=== PATIENT | female | born 1980 | race Caucasian/White ===

== ENCOUNTER 2017-09-01 05:42 | Emergency (ER) | payer MEDICAID, SELFPAY ==
[2017-09-01 05:43] VITALS: BP 128/90; PULSE 109; RESP 18; TEMP 36.8; O2SAT 100; BMI 28.9
--- NOTE | 2017-09-01 05:55 | ED.VISSUMM ---
- ER Visit Summary Date of Service: 09/01/17 Chief Complaint: Back pain History of Present Illness: The patient is a 36 F who presents with back pain. She does have a history of prior similar symptoms. It has been present about 2-3 weeks. She states that in the past month she is also had pain in the left hip and left leg. She has been taking naproxen with out relief at home. Her pain is worse with movement ambulation or bending and relieved by remaining still. She denies any numbness tingling weakness fever abdominal pain urinary retention fecal incontinence history of back surgery history of IV drug abuse. Physical Examination: Afebrile vitals unremarkable Heart regular Lungs clear No reproducible back tenderness normal inspection Negative straight leg raise bilaterally Normal strength and sensation of the lower extremities 5 out of 5 dorsiflexion, plantarflexion, extensor hallucis longus Test Results: Not indicated Emergency Department Course and Treatment: Patient presents with lumbar radiculopathy. She had he has anti-inflammatories at home. She was given a prescription for prednisone. She was advised to follow-up with her primary care physician and advised that she may benefit from physical therapy as well. She was discharged. Treatment Plan: [] Disposition: Discharge Impression lumbar radiculopathy This note was generated with [employer] dictation software. It may contain incorrect words, spelling, and punctuation that were not noted in review of the chart prior to signing ED Disposition - Plan for ED Patient: Chief Complaint: Back Referrals: Rj Alejandro MD [Primary Care Provider] -
--- NOTE | 2017-09-01 05:58 | ED.DCSUM_ITS ---
- ER Visit Summary Date of Service: 09/01/17 Chief Complaint: Back pain History of Present Illness: The patient is a 36 F who presents with back pain. She does have a history of prior similar symptoms. It has been present about 2- 3 weeks. She states that in the past month she is also had pain in the left hip and left leg. She has been taking naproxen with out relief at home. Her pain is worse with movement ambulation or bending and relieved by remaining still. She denies any numbness tingling weakness fever abdominal pain urinary retention fecal incontinence history of back surgery history of IV drug abuse. Physical Examination: Afebrile vitals unremarkable Heart regular Lungs clear No reproducible back tenderness normal inspection Negative straight leg raise bilaterally Normal strength and sensation of the lower extremities 5 out of 5 dorsiflexion, plantarflexion, extensor hallucis longus Test Results: Not indicated Emergency Department Course and Treatment: Patient presents with lumbar radiculopathy. She had he has anti-inflammatories at home. She was given a prescription for prednisone. She was advised to follow-up with her primary care physician and advised that she may benefit from physical therapy as well. She was discharged. Treatment Plan: [] Disposition: Discharge Impression lumbar radiculopathy This note was generated with [employer] dictation software. It may contain incorrect words, spelling, and punctuation that were not noted in review of the chart prior to signing ED Disposition - Plan for ED Patient: Chief Complaint: Back Referrals: Rj Alejandro MD [Primary Care Provider] -
--- NOTE | 2017-09-01 06:01 | ED.DEP ---
ED Disposition - Plan for ED Patient: Chief Complaint: Back Instructions: ED Sciatica Prescriptions: Prednisone [Deltasone] 60 mg PO DAILY #15 tab Referrals: Rj Alejandro MD [Primary Care Provider] -
== END 2017-09-01 06:16 | disposition home or self-care (01) ==
LOC: ED 05:58
PROVIDERS: Emergency Provider Emergency Medicine; Family Provider Family Medicine; PCP Family Medicine
DX: M54.16 Radiculopathy, lumbar region (principal); J45.909 Unspecified asthma, uncomplicated; Z72.0 Tobacco use
CPT/HCPCS: 99282

== ENCOUNTER 2018-06-28 14:57 | Emergency (ER) | payer MEDICAID, SELFPAY ==
[2018-06-28 14:58] VITALS: BP 118/100; PULSE 105; RESP 16; TEMP 36.4; O2SAT 98; BMI 28.4
--- NOTE | 2018-06-28 15:07 | CT_ITS ---
STUDY: CT ABDOMEN AND PELVIS WITHOUT CONTRAST REASON FOR EXAM: Female, 37 years old. Left flank pain. RADIATION DOSAGE (If Supplied By Facility): CTDIvol = ( ) mGy, DLP = ( ) mGycm TECHNIQUE: Transaxial images were obtained from the dome of the diaphragm to the symphysis pubis without oral contrast, and without intravenous contrast. Sagittal and coronal images were reconstructed. Individualized dose optimization techniques were used for this CT. COMPARISON: December 05, 2013. FINDINGS: The visualized lung bases are unremarkable. The visualized portions of the heart are within normal limits. Normal liver. Normal gallbladder and extrahepatic biliary system. Normal spleen. Normal pancreas. Normal bilateral adrenal glands. The right kidney is of normal size and cortical thickness. There is a 2 mm nonobstructing calculus in the lower pole calyx. There is no hydronephrosis. Normal right ureter. The left kidney is of normal size and cortical thickness. There is no mass or renal calculi. There is evidence of hydronephrosis and ureterectasis to the UVJ where there is nonobstructing 3 mm calculus (image 139, series 2). Normal visualized stomach. Normal small intestine. Normal colon. The appendix is visualized and appears normal. Normal abdominal aorta. Normal inferior vena cava. Normal retroperitoneum. Normal urinary bladder. The uterus is anteverted and grossly normal. There is evidence of Essure devices at both cornua. Question 2.9 x 1.5 x 1.9 left ovarian cyst. The right adnexa is unremarkable. There is no pelvic lymphadenopathy. No free air or free fluid is seen within the peritoneal cavity. There is an umbilical hernia of omental fat. The abdominal wall is otherwise unremarkable. There are minimal degenerative changes of the lower lumbar spine. CT/Abdomen/Pelvis without Cont IMPRESSION: 1. Left UVJ calculus with mild obstructive uropathy. This was described on the previous study and appears essentially unchanged.. 2. Stable nonobstructing right lower pole renal calculus. 3. Left ovarian cyst. 4. No other major interval change from the prior study Electronically Signed: Zack Locke DO at 16:37 EST Tel [phone], Service support ,
--- NOTE | 2018-06-28 15:10 | ED.VISSUMM ---
- ER Visit Summary Date of Service: 06/28/18 Chief Complaint: Left flank/abdominal pain History of Present Illness: The patient is a 37 F who has had left flank and left lower quadrant abdominal pain for the past 3 days. She describes it as sharp. Nothing makes his pain better or worse. She was seen [facility] ago and had a negative urine for infection but did have blood. She states that the provider did place her on an antibiotic. She denies hematuria or dysuria. She has had kidney stones once before. She tried Tylenol at home without any relief. Denies any diarrhea. Physical Examination: Vital signs reviewed. HEENT exam unremarkable. Heart is regular rate and rhythm without murmurs. Lungs are clear to auscultation. Abdomen is soft lower quadrant and left flank. There is no guarding or rebound tenderness. Extremities reveal no edema. Skin exam normal. Neurologic exam normal. Test Results: Laboratory studies unremarkable. Urinalysis reveals 2+ leukocytes and positive nitrites. 0-5 red blood cells. 10-[address] the abdomen pelvis reveals a left UVJ calculus which is unchanged from a CAT scan previously performed. Emergency Department Course and Treatment: Patient was given morphine and Zofran. She continued to have pain so given Toradol she feels much better. Her infection is likely the cause of her discomfort. She is already on Macrobid. I feel that this is an appropriate antibiotic. She will continue these until they are all gone. The kidney stones in the same exact location is the last scan. This may be a chronic issue. I will give her urology follow-up. I will give her [place] and naproxen for home. Treatment Plan: [] Disposition: Discharge Impression: UTI, left ureterolithiasis This note was generated with [employer] dictation software. It may contain incorrect words, spelling, and punctuation that were not noted in review of the chart prior to signing ED Disposition - Plan for ED Patient: Chief Complaint: Flank Pain Referrals: Rj Alejandro MD [Primary Care Provider] -
[2018-06-28] MEDS: Morphine 4 MG/ML Syringe IV (15:17)
[2018-06-28] MEDS: Ondansetron 4 MG/2 ML Vial IV (15:17)
[2018-06-28 15:18] LABS: Absolute Lymphocyte Count 1.72 X10^3/ul (0.83-4.51); Absolute Neutrophil Count 6.2 X10^3/uL (2.0-7.7); Basophil# 0.02 X10^3/uL; Basophil% 0.2 % (0-1); Eosinophil# 0.39 X10^3/uL; Eosinophils% 4.3 % (0-5); Hematocrit 38.8 % (37-47); Hemoglobin 13.3 g/dl (12.0-15.0); Lymphocyte # 1.72 X10^3/ul (4.0); Lymphocyte % 19.1 % (19-41); Mean Corp Hgb Conc 34.3 g/gl (32-36); Mean Corpuscular Hgb 29.4 pg (27.0-32.0); Mean Corpuscular Volume 85.7 fL (81-99); Mean Platelet Vol. 9.4 fl (6.2-12.0); Monocyte# 0.63 X10^3/uL; Neutrophil # 6.23 X10^3/uL (2.7-7.7); Neutrophil % 69.2 % (47-70); Platelet Count 281 K/mm3 (150-450); RBC Distribution Width CV 12.4 % (11.6-14.6); RBC Distribution Width SD 38.9 fl (35.1-43.9); Red Blood Count 4.53 M/mm3 (4.2-5.4)
[2018-06-28 15:31] LABS: POSITIVE COUNT NO; POSITIVE DIFFERENTIAL NO; POSITIVE MORPHOLOGY NO
[2018-06-28 15:35] LABS: ALB/GLOB Ratio 1.2 RATIO (0.9-2.4); AST(SGOT) 11 U/L (15-37); Alanine Aminotransfer ALT/SGPT 14 U/L (13-56); Albumin, Serum 4.2 g/dL (3.2-5.0); Alkaline Phosphatase 66 U/L (45-117); Anion Gap 11 (5-15); BUN 12 mg/dL (7-18); Calcium,Total 8.8 mg/dL (8.5-10.1); Chloride 104 mmol/L (98-107); EST Glomerular Filtration Rate 66 mL/min (>60); Est Glom Filt Rate - Afr Amer 80 mL/min (>60); Estimated Creatinine Clearance 69.31 ml/min; Globulin 3.6 g/dL (2.2-4.2); Glucose 85 mg/dL (74-106); Potassium 3.9 mmol/L (3.5-5.1); Protein, Total 7.8 g/dL (6.4-8.2); Sodium Level 136 mmol/L (136-145)
[2018-06-28 15:41] LABS: Color, Urine Yellow (Yellow); Glucose, Dipstick Normal (Normal); Leukocyte Esterase-Dipstick 500 /ul (Negative); Nitrite-Dipstick Positive (Negative); Occult Blood-Urine 250 /ul (Negative); Protein-Dipstick 30 mg/dl (Negative); Urine Clarity Sl. Cloudy (Clear); Urine Urobilinogen 1 mg/dl (Normal)
[2018-06-28 15:48] LABS: Urine Bilirubin Dipstick 1 mg/dL (Negative)
[2018-06-28] MEDS: Ketorolac 30 MG/ML Syringe IV (15:48)
[2018-06-28 15:50] LABS: Internal QC Validated? YES +Cl - CLEAR BKGD; Pregnancy, Urine Negative Negative
[2018-06-28 15:55] LABS: Red Blood Cells-Urine 5-10 SEEN /hpf (0-5); White Blood Cells 10-25 SEEN /hpf (0-5)
[2018-06-28 15:56] LABS: Bacteria 1+ /hpf (None Seen); Mucous, Urine 1+ /hpf (<or=2+); Squamous Epithelial Cells - UA 10-25 SEEN /hpf (5-10)
[2018-06-28 15:57] LABS: Ketone-Dipstick 150 mg/dl (Negative)
--- NOTE | 2018-06-28 17:13 | DCINST.ED_ITS ---
ED Disposition - Plan for ED Patient: Disposition: Home or Assisted Living Chief Complaint: Flank Pain Instructions: ED Kidney Infec Female Prescriptions: Hydrocodone Bitart/Apap 5-325 [[place] 5MG-325MG] 1 tab PO Q6H PRN PRN 3 Days #10 tab PRN Reason: Pain Naproxen [Naprosyn] 500 mg PO BID PRN #20 tab Referrals: Rj Alejandro MD [Primary Care Provider] -
[2018-06-28 17:22] VITALS: PULSE 100; RESP 14; O2SAT 98
== END 2018-06-28 17:24 | disposition home or self-care (01) ==
PROVIDERS: Emergency Provider Emergency Medicine; Family Provider Family Medicine; PCP Family Medicine
DX: N39.0 Urinary tract infection, site not specified (principal); N20.1 Calculus of ureter; Z87.442 Personal history of urinary calculi; J45.909 Unspecified asthma, uncomplicated; Z72.0 Tobacco use
CPT/HCPCS: 74176; 80053; 81001; 81025; 85025; 96374; 96375; 99283; A4216; J2405

== ENCOUNTER 2018-06-30 03:20 | Emergency (ER) | payer MEDICAID, SELFPAY ==
[2018-06-30 03:21] VITALS: BP 130/104; PULSE 81; RESP 16; TEMP 36.6; O2SAT 100; BMI 28.3
[2018-06-30] MEDS: Ondansetron 4 MG/2 ML Vial IV (03:44)
[2018-06-30] MEDS: Ketorolac 30 MG/ML Syringe IV (03:44)
[2018-06-30] MEDS: 0.9% Normal Saline 1,000 ML 1000 ML IV (03:46)
[2018-06-30 03:50] LABS: Absolute Lymphocyte Count 1.64 X10^3/ul (0.83-4.51); Absolute Neutrophil Count 4.2 X10^3/uL (2.0-7.7); Basophil# 0.02 X10^3/uL; Basophil% 0.3 % (0-1); Eosinophil# 0.41 X10^3/uL; Eosinophils% 5.9 % (0-5); Hematocrit 37.4 % (37-47); Hemoglobin 12.5 g/dl (12.0-15.0); Lymphocyte # 1.64 X10^3/ul (4.0); Lymphocyte % 23.5 % (19-41); Mean Corp Hgb Conc 33.4 g/gl (32-36); Mean Corpuscular Hgb 28.8 pg (27.0-32.0); Mean Corpuscular Volume 86.2 fL (81-99); Mean Platelet Vol. 9.1 fl (6.2-12.0); Monocyte# 0.69 X10^3/uL; Monocyte% 9.9 % (0-10); Neutrophil # 4.22 X10^3/uL (2.7-7.7); Neutrophil % 60.3 % (47-70); Platelet Count 269 K/mm3 (150-450); RBC Distribution Width CV 12.4 % (11.6-14.6); RBC Distribution Width SD 39.2 fl (35.1-43.9); Red Blood Count 4.34 M/mm3 (4.2-5.4)
[2018-06-30 03:57] LABS: POSITIVE COUNT NO; POSITIVE DIFFERENTIAL NO; POSITIVE MORPHOLOGY NO
[2018-06-30 04:06] LABS: Anion Gap 10 (5-15); BUN 15 mg/dL (7-18); Calcium,Total 8.5 mg/dL (8.5-10.1); Chloride 108 mmol/L (98-107); Creatinine, Serum 0.83 mg/dL (0.55-1.02); EST Glomerular Filtration Rate 82 mL/min (>60); Est Glom Filt Rate - Afr Amer 99 mL/min (>60); Estimated Creatinine Clearance 83.51 ml/min; Glucose 93 mg/dL (74-106); Potassium 3.8 mmol/L (3.5-5.1); Sodium Level 142 mmol/L (136-145)
[2018-06-30] MEDS: oxyCODONE 5 MG Tablet PO (04:35)
--- NOTE | 2018-06-30 05:29 | ED.DCSUM_ITS ---
- ER Visit Summary Date of Service: 06/30/18 Chief Complaint: Flank and abdominal pain. History of Present Illness: The patient is a 37 F who presents with left flank and abdominal pain. Is been present for 5 days. She describes as cramping or spasm-like. Currently her pain is severe. She reports nausea without vomiting. She has had some dysuria and frequency. No hematuria. She initially went to an urgent care as she thought she may be developing a UTI. She was started on Macrobid based on the urine dip results. She was seen here in the emergency department 2 days ago for worsening symptoms and did have a CT which showed a distal ureteral calculus with mild hydronephrosis. She was given prescriptions for naproxen and Dafter. However she has not been taking the Dafter due to GI side effects. Physical Examination: Afebrile blood pressure 130/104 otherwise normal Moist mucous membranes Heart regular rate and rhythm Lungs are clear Abdomen soft No reproducible flank/CVA tenderness Alert Test Results: CBC BMP unremarkable. Urine culture was sent. Emergency Department Course and Treatment: Recent visit was reviewed. Her urinalysis on the recent visit here was suggestive of UTI with positive nitrites and she was continued on Macrobid. She was actually called by the urgent care and told that her culture from earlier in the week grew out strep of the so she was told to discontinue the antibiotics as this was thought to be contaminant or colonization. Given that she had a UA here however 2 days ago which was highly suggestive of UTI she was advised to continue her antibiotics and we did send a new urine culture. Patient was initially treated here with IV fluids Toradol and Zofran. She continued to complain of significant pain. She was given oral oxycodone and tolerated this well. Her symptoms were well controlled on reevaluation. Given that the oxycodone seemed to be better tolerated she was written a prescription for Percocet as well as Zofran. She was referred to urology for outpatient follow-up and understands to return for new or worsening symptoms and was instructed on signs and symptoms to monitor for. Treatment Plan: [] Disposition: Discharge Impression: Urolithiasis This note was generated with [employer] dictation software. It may contain incorrect words, spelling, and punctuation that were not noted in review of the chart prior to signing ED Disposition - Plan for ED Patient: Chief Complaint: Flank Pain Referrals: Rj Alejandro MD [Primary Care Provider] -
--- NOTE | 2018-06-30 05:30 | ED.DEP ---
ED Disposition - Plan for ED Patient: Chief Complaint: Flank Pain Instructions: ED Stone Renal W Colic Prescriptions: Oxycodone HCl/Acetaminophen [Percocet 5/325] 1 tab PO Q6H PRN PRN 3 Days #12 tab PRN Reason: Pain Ondansetron [Zofran Odt] 4 mg PO Q8H PRN PRN #10 tab PRN Reason: Nausea Referrals: Rj Alejandro MD [Primary Care Provider] -
--- NOTE | 2018-06-30 05:38 | ED.DEP ---
ED Disposition - Plan for ED Patient: Chief Complaint: Flank Pain Instructions: ED Stone Renal W Colic Prescriptions: Oxycodone HCl/Acetaminophen [Percocet 5/325] 1 tab PO Q6H PRN PRN 3 Days #12 tab PRN Reason: Pain Ondansetron [Zofran Odt] 4 mg PO Q8H PRN PRN #10 tab PRN Reason: Nausea Referrals: Rj Alejandro MD [Primary Care Provider] - Eldon Sauceda MD [STAFF PHYSICIAN] -
[2018-06-30 05:40] VITALS: BP 128/90; PULSE 69; RESP 18; O2SAT 100
== END 2018-06-30 05:41 | disposition home or self-care (01) ==
LOC: ED 03:41
PROVIDERS: Emergency Provider Emergency Medicine; Family Provider Family Medicine; PCP Family Medicine
DX: N13.2 Hydronephrosis with renal and ureteral calculous obstruction (principal); J45.909 Unspecified asthma, uncomplicated; Z72.0 Tobacco use
CPT/HCPCS: 80048; 85025; 87086; 87088; 96361; 96374; 96375; 96376; 99285; J7030; A4216; J2405

== ENCOUNTER 2019-01-31 16:13 | Emergency (ER) | payer MEDICAID, SELFPAY ==
[2019-01-31 16:14] VITALS: BP 126/89; PULSE 107; RESP 17; TEMP 36.9; O2SAT 97; BMI 29.1
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
== END 2019-01-31 17:37 | disposition home or self-care (01) ==
PROVIDERS: Emergency Provider Emergency Medicine; Family Provider Family Medicine; PCP Family Medicine
DX: S06.0X0A Concussion without loss of consciousness, initial encounter (principal); V43.52XA Car driver injured in collision with other type car in traffic accident, initial encounter; F17.200 Nicotine dependence, unspecified, uncomplicated
CPT/HCPCS: 70450; 72125; 99282

== ENCOUNTER → 2020-02-25 | Outpatient (CLI) | payer BC, MEDICAID, SELFPAY | END | disposition home or self-care (01) | LOC: LABSPEC 07:57 | PROVIDERS: PCP Family Medicine; Referring Provider Family Medicine; Visit Provider Family Medicine | DX: Z03.818 Encounter for observation for suspected exposure to other biological agents ruled out (principal) | CPT/HCPCS: 87635; U0003 ==

== ENCOUNTER → 2020-03-05 | Outpatient (CLI) | payer BC, MEDICAID, SELFPAY | END | disposition home or self-care (01) | LOC: LABSPEC 03-06 07:07 | PROVIDERS: Referring Provider Family Medicine; Visit Provider Family Medicine | DX: Z03.818 Encounter for observation for suspected exposure to other biological agents ruled out (principal) | CPT/HCPCS: 87635; U0003 ==

== ENCOUNTER → 2020-03-19 | Outpatient (CLI) | payer BC, MEDICAID, SELFPAY | END | disposition home or self-care (01) | LOC: LABSPEC 12:51 | PROVIDERS: Referring Provider Family Medicine; Visit Provider Family Medicine | DX: Z03.818 Encounter for observation for suspected exposure to other biological agents ruled out (principal) | CPT/HCPCS: 87635; U0003 ==

== ENCOUNTER → 2020-04-02 | Outpatient (CLI) | payer BC, MEDICAID, SELFPAY | END | disposition home or self-care (01) | LOC: LABSPEC 09:51 | PROVIDERS: Referring Provider Family Medicine; Visit Provider Family Medicine | DX: Z03.818 Encounter for observation for suspected exposure to other biological agents ruled out (principal) | CPT/HCPCS: 87635; U0003 ==

== ENCOUNTER → 2020-04-16 | Outpatient (CLI) | payer BC, MEDICAID, SELFPAY | END | disposition home or self-care (01) | LOC: LABSPEC 11:52 | PROVIDERS: Referring Provider Family Medicine; Visit Provider Family Medicine | DX: Z03.818 Encounter for observation for suspected exposure to other biological agents ruled out (principal) | CPT/HCPCS: 87635; U0003 ==

== ENCOUNTER 2021-02-14 13:24 | Emergency (ER) | payer MEDICAID, SELFPAY ==
[2021-02-14 13:24] VITALS: BP 105/91; PULSE 89; RESP 18; TEMP 36.1; O2SAT 99; BMI 26.4
--- NOTE | 2021-02-14 13:40 | EKG12_ITS ---
Test Reason : CP Blood Pressure : / mmHG Vent. Rate : 071 BPM Atrial Rate : 071 BPM P-R Int : 136 ms QRS Dur : 078 ms QT Int : 374 ms P-R-T Axes : 049 051 050 degrees QTc Int : 406 ms Normal sinus rhythm with sinus arrhythmia Normal ECG Confirmed by CONCETTA SUH, TYLER ([id number]), order editor JUAN RAMON WILL ([id number]) on 02/15/2021 1:39:18 PM Referred By: ENMANUEL Confirmed By:TYLER HYLTON MD
--- NOTE | 2021-02-14 13:42 | EDS_ITS ---
HPI History of Present Illness Chief Complaint: Chest Pain Informant: patient Onset/Context/Timing Onset: Days Activity at onset: sudden and rest Timing: Continuous Quality: Positive for - (Varies from sharp to dull tingly) Location: Right Chest and Left Chest Current Severity: Mild Maximum Severity: Severe Worsened By: Nothing Relieved By: Nothing Associated Symptoms: Positive for Dyspnea; Negative for Nausea, Vomiting, Diaphoresis, Cough, Fever, Lightheadedness, Acid Reflux and Palpitations Narrative Narrative: Patient is a 40-year-old former smoker who presents with bilateral chest pain and numbness right and left side of her neck associated with shortness of breath. She denies fever, chills night sweats. She denies history of PE or DVT. She denies leg pain, swelling discoloration. She has no risk factors for PE or DVT. She denies headache, visual, ocular auditory symptoms. She denies rhinorrhea, congestion or postnasal drainage. She denies sore throat. She denies abdominal pain, black or maroon-colored stool. She does report increased urination and thirst. There is family history of diabetes. Prior Similar Symptoms: No CVD Risk Factors: Positive for Smoking (Former smoker.); Negative for Hypertension, Diabetes, Hypercholesterolemia and Family History 1' </=55 PE Risk Factors: Negative for Recent Travel/Surgery, Recent Immobilization, Pr ior DVT or PE, Cancer and OCP + Smoking + >/=35 TAD Risk Factors: Negative for Marfan's Syndrome, Hypertension and [facility] Medical History (Updated 02/14/21 @ 14:[address] Christopher Dickens MD) Anxiety Asthma Environmental allergies Migraine Home Medications albuterol sulfate [Ventolin Hfa (SP)] 1 - 2 puff INHALATION Q6H PRN PRN 06/17/16 [History Last Taken Unknown] Allergy/AdvReac Type Severity Reaction Status Date / Time No Known Allergies Allergy Verified 02/14/21 13:27 Social History (Updated 02/14/21 @ 13:[address] Christopher Dickens MD) household members: none Smoking Status: Former smoker alcohol intake: current alcohol intake frequency: holidays/special occasions only substance use type: does not use ROS ROS ED Constitutional Constitutional ED: Denies chills, fever(s), subjective or sweats Eyes Eyes: Reports none ENT ENT ED: Denies ear pain, rhinorrhea or sore throat Cardiovascular Cardiovascular: Reports as per HPI; Denies orthopnea or paroxysmal nocturnal dyspnea Respiratory/Chest Respiratory/Chest: Reports dyspnea; Denies cough, dyspnea on exertion, orthopnea, paroxysmal nocturnal dyspnea or sputum Gastrointestinal Gastrointestinal: Denies abdominal pain, diarrhea, nausea or vomiting Genitourinary Genitourinary ED: Denies dysuria, hematuria or urinary frequency Musculoskeletal Musculoskeletal: Denies arthralgias, myalgias or neck pain Integumentary Denies rash Neurologic Neurologic: Denies headache(s) or weakness Psychiatric Psychiatric: Reports anxiety Hematologic/Lymphatic Hematologic/Lymphatic: Denies easy bleeding or easy bruising EXAM Physical Exam Const Vital Signs: 02/14/21 13:24 02/14/21 13:36 02/14/21 13:45 Temperature 96.9 F L Temperature Source Temporal Pulse Rate 89 Respiratory Rate 18 Respiratory Effort Normal Non-Labored Respiratory Pattern Normal Blood Pressure 105/91 H Blood Pressure Mean 95 Pulse Ox 99 99 Oxygen Delivery Method Room Air Room Air 02/14/21 14:48 Temperature Temperature Source Pulse Rate 59 L Respiratory Rate 16 Respiratory Effort Respiratory Pattern Blood Pressure 115/87 H Blood Pressure Mean 96 Pulse Ox Oxygen Delivery Method Positive well nourished and well developed General Appearance ED: well developed and NAD; Negative for pallor HEENT Reports moist mucous membranes normocephalic and atraumatic Eyes PERRL and EOMs intact bilaterally General Eye ED: Negative for pale conjunctiva or scleral icterus Neck no lymphadenopathy, supple and no JVD Chest Wall palpation of chest normal Resp normal respiratory effort Effort and Inspection: respiratory distress Cardio regular rate, regular rhythm, S1 normal heart sound and S2 normal heart sound GI normal to inspection, nondistended, normoactive bowel sounds, soft to palpation, non-tender and non-distended Back/Spine no CVA tenderness and no thoracic nor lumbar tenderness Extremity normal to inspection Extremity Narrative: There is no asymmetry, swelling, discoloration, leg vein distention, palpable cords or tenderness along the distribution of the deep venous system. General Extremety ED: Negative for edema or tenderness General Extremity: Negative for edema Neuro oriented x3 and CN's II-XII intact bilaterally Neuro Narrative: Sensorium / Orientation: awake and alert Psych mental status grossly normal Skin no rashes or lesions noted and no wounds General Skin Exam: Negative for jaundice or pallor MDM MDM MDM Narrative Medical decision making narrative: Cause of her chest pain is unknown. Will evaluate for cardiac versus other causes. This may represent anxiety. Patient's work-up is negative. D-dimer not ordered because patient is PERC negative. Lab Data Attestation: I reviewed the patient's lab results. Lab results narrative: With chest pain for days and normal troponin and negative work-up will discharge to home. Labs: Laboratory Results - last 24 hr 02/14/21 02/14/21 13:45 13:45 WBC 7.5 RBC 4.55 Hgb 13.5 Hct 40.2 MCV 88.4 MCH 29.7 MCHC 33.6 RDW Std Deviation 40.1 RDW Coeff of Wilfredo 12.4 Plt Count 255 MPV 9.8 Immature Gran % (Auto) 0.300 Neut % (Auto) 63.8 Lymph % (Auto) 21.0 [place] % (Auto) 8.9 Eos % (Auto) 5.9 H Baso % (Auto) 0.1 Absolute Neuts (auto) 4.8 Absolute Lymphs (auto) 1.58 Nucleated RBC % 0 Sodium 138 Potassium 4.0 Chloride 105 Carbon Dioxide 26.0 Anion Gap 7 BUN 15 Creatinine 0.83 Estim Creat Clear Calc 81.07 Est GFR (MDRD) Af Amer 98 Est GFR (MDRD) Non-Af 81 BUN/Creatinine Ratio 18.1 Glucose 83 Calcium 9.1 Troponin I High Sens 4 Radiography Chest X-Ray - ED: 2 View, Read by ED Physician (Chest x-ray is interpreted by me as normal at 1449.), Normal, Heart, Lungs, Mediastinum, Bony Structures and No Acute Disease EKG Initial EKG: Attestation: I personally reviewed and interpreted this EKG as follows: Interpretation: Sinus Rhythm (The EKG is normal. Ventricular rate 71. NH interval 236 ms. QS duration 78 ms. QT duration 374 ms. [place] is normal.) Discharge Plan Triage Chief Complaint: Chest Pain ED Provider: Christopher Dickens Dx/Rx/DC Orders Clinical Impression: Chest pain of unknown etiology Instructions: ED Chest Pain, Noncardiac Prescriptions: No Action albuterol sulfate [Ventolin HFA] 1 INHALER inhaler 1 - 2 puff inhalation Q6H PRN PRN (Reason: Sob &/Or Wheezing) RF: 0 Primary Care Provider: Care Physician,No Primary Referrals: Berta Pennington MD [STAFF PHYSICIAN] - 5-7 Days Care Physician,No Primary [Primary Care Provider] - Disposition Disposition: Home, Self Care
[2021-02-14 13:45] VITALS: O2SAT 99
--- NOTE | 2021-02-14 13:55 | RAD_ITS ---
STUDY: X-RAY CHEST REASON FOR EXAM: Female, 40 years old. chest pain TECHNIQUE: PA and lateral views of the chest. COMPARISON: None. FINDINGS: The lungs are clear and expanded. There is no demonstrated pleural abnormality. Normal size heart. Normal mediastinum and alexia. Normal visualized pulmonary arteries. Normal visualized aortic arch and descending thoracic aorta. Normal visualized thoracic spine. Normal visualized ribs, clavicles, and shoulders. There is no demonstrated abnormality of the visualized soft tissue structures of the upper abdomen. RAD/Chest PA and Lateral IMPRESSION: Normal x-ray examination of the chest. Electronically Signed: Jose Winn MD at 15:06 EDT Tel , Service support ,
[2021-02-14 13:57] LABS: Absolute Lymphocyte Count 1.58 X10^3/uL (0.83-4.51); Absolute Neutrophil Count 4.8 X10^3/uL (2.0-7.7); Basophil# 0.01 X10^3/uL; Basophil% 0.1 % (0-1); Eosinophil# 0.44 X10^3/uL; Eosinophils% 5.9 % (0-5); Hematocrit 40.2 % (37-47); Hemoglobin 13.5 g/dL (12.0-15.0); Lymphocyte # 1.58 X10^3/ul (0.83-4.51); Mean Corp Hgb Conc 33.6 g/dL (32-36); Mean Corpuscular Hgb 29.7 pg (27.0-32.0); Mean Corpuscular Volume 88.4 fL (81-99); Mean Platelet Vol. 9.8 fl (6.2-12.0); Monocyte# 0.67 X10^3/uL; Monocyte% 8.9 % (0-10); NRBC Flagged by Analyzer 0 % (0-5); Neutrophil % 63.8 % (47-70); Platelet Count 255 K/mm3 (150-450); RBC Distribution Width CV 12.4 % (11.6-14.6); RBC Distribution Width SD 40.1 fl (35.1-43.9); Red Blood Count 4.55 M/mm3 (4.2-5.4); White Blood Count 7.5 K/mm3 (4.4-11.0)
[2021-02-14 14:15] LABS: Anion Gap 7 (5-15); BUN 15 mg/dL (7-18); BUN/Creat Ratio 18.1 RATIO (10-20); Calcium,Total 9.1 mg/dL (8.5-10.1); Chloride 105 mmol/L (98-107); Creatinine, Serum 0.83 mg/dL (0.55-1.02); EST Glomerular Filtration Rate 81 mL/min (>60); Est Glom Filt Rate - Afr Amer 98 mL/min (>60); Estimated Creatinine Clearance 81.07 ml/min; Glucose 83 mg/dL (74-106); Sodium Level 138 mmol/L (136-145); Troponin-I HS 4 pg/mL (3.0-54.0)
[2021-02-14 14:48] VITALS: BP 115/87; PULSE 59; RESP 16
== END 2021-02-14 15:13 | disposition home or self-care (01) ==
PROVIDERS: Emergency Provider Emergency Medicine
DX: R07.9 Chest pain, unspecified (principal); J45.909 Unspecified asthma, uncomplicated; Z79.51 Long term (current) use of inhaled steroids; Z87.891 Personal history of nicotine dependence
CPT/HCPCS: 71046; 80048; 84484; 85025; 93005; 99284; A4216

== ENCOUNTER 2023-05-30 08:29 | Emergency (ER) | payer OTHER, SELFPAY ==
[2023-05-30 08:31] VITALS: BP 135/107; PULSE 102; RESP 18; TEMP 36.2; O2SAT 99; BMI 31.4
--- NOTE | 2023-05-30 08:54 | RAD_ITS ---
INDICATION: FB sensation EXAMINATION/TECHNIQUE: X-RAY - XR Neck Soft Tissue COMPARISON: No relevant prior comparison study available FINDINGS: SOFT TISSUES: Unremarkable. Linear calcific density anterior to the cricoid cartilage. Foreign body is difficult to exclude. EPIGLOTTIS: No pathologic thickening or enlargement. PROXIMAL AIRWAY: Grossly patent. RAD/Neck for Soft Tissue IMPRESSION: Possible linear foreign body in the hypopharynx anterior to the cricoid cartilage. Direct visualization or CT scan of the neck might be of value if clinically indicated. Electronically Signed: Vidal aCsillas MD at 9:59 EST ,
--- NOTE | 2023-05-30 08:56 | EX.ED.DYSGE1 ---
HPI History of Present Illness Chief Complaint: Shortness of Breath Informant: patient Onset/Context/Timing Onset: Month(s) Narrative Narrative: Patient presents with continued shortness of breath and cough since March. Patient states in March she went to the urgent care and was diagnosed with bronchitis. She does have underlying asthma. She was given antibiotics but had no significant proved. She is been back to the urgent care several times since then and states they keep giving the antibiotics or steroids but she is not getting better. She had fevers over the weekend up to 101. She states she feels that there is a thick lump in her throat. She has not seen her regular primary care physician or a bacteriology technician. [facility] Medical History Anxiety Asthma Environmental allergies Migraine Home Medications albuterol sulfate 90 mcg/actuation aerosol inhaler (Ventolin HFA) 1 - 2 puff inhalation Q6H PRN PRN Sob &/Or Wheezing 06/17/16 [History Last Taken Unknown] Allergy/AdvReac Type Severity Reaction Status Date / Time amoxicillin [From Augmentin] AdvReac Mild Abd Verified 05/30/23 08:31 cramps/diarrhea clavulanic acid AdvReac Mild Abd Verified 05/30/23 08:31 [From Augmentin] cramps/diarrhea Social History household members: none Smoking Status: Former smoker alcohol intake: current alcohol intake frequency: holidays/special occasions only substance use type: does not use ROS ROS ED Constitutional Constitutional ED: Reports fever(s); Denies chills Eyes Eyes: Denies change in vision or discharge from eye(s) ENT ENT ED: Denies discharge from eye(s), rhinorrhea or sore throat Cardiovascular Cardiovascular: Denies chest pain or palpitations Respiratory/Chest Respiratory/Chest: Reports cough, dyspnea and sputum Gastrointestinal Gastrointestinal: Denies abdominal pain, nausea or vomiting Genitourinary Genitourinary ED: Denies dysuria Musculoskeletal Musculoskeletal: Denies back pain or extremity pain Integumentary Denies Abrasions or rash Neurologic Neurologic: Denies headache(s) or weakness Psychiatric Psychiatric: Denies anxiety or depression Allergic/Immunologic Allergic/Immunologic ED: Denies lip swelling or urticaria EXAM Physical Exam Const Vital Signs: 05/30/23 08:31 05/30/23 09:09 05/30/23 09:06 Temperature 97.2 F L Temperature Source Temporal Pulse Rate 102 H Respiratory Rate 18 16 Respiratory Effort Short of Breath Respiratory Depth Normal Respiratory Pattern Normal Normal Blood Pressure 135/107 H Blood Pressure Mean 116 Pulse Ox 99 Oxygen Delivery Method Room Air Room Air Positive well nourished and well developed General Appearance ED: well developed HEENT Reports moist mucous membranes Eyes EOMs intact bilaterally Chest Wall inspection of chest normal and palpation of chest normal Resp normal respiratory effort and clear to auscultation bilaterally Cardio regular rate and regular rhythm GI non-tender Palpation: soft Extremity normal to inspection Neuro oriented x3 and no sensory deficits noted Motor Exam: strength 5/5 throughout Psych mental status grossly normal Skin no rashes or lesions noted MDM MDM MDM Narrative Medical decision making narrative: Patient be given a DuoNeb treatment here. Chest x-ray obtained to evaluate for acute lung pathology, cardiac size, or mediastinal abnormality. Soft tissue neck x-ray will be obtained to ensure open airway with no deviation. Labwork obtained to evaluate for leukocytosis, anemia, and electrolyte derangement. History & Record Review Discussion w/independent historian: Patient Lab Data Attestation: I reviewed the patient's lab results. Labs: Laboratory Results - last 24 hr 05/30/23 09:19 WBC 5.9 RBC 4.70 Hgb 13.6 Hct 40.2 MCV 85.5 MCH 28.9 MCHC 33.8 RDW Std Deviation 39.4 RDW Coeff of Wilfredo 12.6 Plt Count 252 MPV 8.9 Immature Gran % (Auto) 0.300 Neut % (Auto) 52.5 Lymph % (Auto) 34.0 [place] % (Auto) 9.0 Eos % (Auto) 3.9 Baso % (Auto) 0.3 Absolute Neuts (auto) 3.1 Absolute Lymphs (auto) 1.99 Nucleated RBC % 0 D-Dimer Quant (PE/DVT) 0.38 Sodium 138 Potassium 3.8 Chloride 109 H Carbon Dioxide 24.0 Anion Gap 5 BUN 14 Creatinine 0.80 Estim Creat Clear Calc 82.43 Est GFR (MDRD) Af Amer 101 Est GFR (MDRD) Non-Af 84 BUN/Creatinine Ratio 17.5 Glucose 94 Calcium 8.8 Serum , Qual NEGATIVE Radiography Chest X-Ray - ED: 2 View, Read by ED Physician, Normal, Heart, Lungs, Mediastinum, No Acute Disease and No Infiltrates Diagnostic Testing: Clinical Impression(s) from Imaging Studies Chest X-Ray 05/30/23 09:25 IMPRESSION: No radiographic evidence of acute cardiopulmonary disease. Electronically Signed: Vidal Casillas MD at 9:51 EST , Treatment and Re-Evaluation :: CBC and chemistry studies are unremarkable. test negative. D-dimer is normal. Two-view chest x-ray per my interpretation reveals no evidence of infiltrate. Soft tissue neck x-ray reveals normal airway with no acute abnormalities. COVID test is negative. Influenza test is positive for flu A. Test results are discussed with the patient. She will continue supportive care. I will refer her to pulmonology as she has been having ongoing problems since March and may need some pulmonary function test or different maintenance medications. Discharge Plan Triage Chief Complaint: Shortness of Breath ED Provider: Anju Bermudez Dx/Rx/DC Orders Clinical Impression: Influenza A Instructions: ED Influenza (Adult) Prescriptions: No Action albuterol sulfate [Ventolin HFA] 1 INHALER inhaler 1 - 2 puff inhalation Q6H PRN PRN (Reason: Sob &/Or Wheezing) Primary Care Provider: Rj Alejandro Referrals: Hernan Sabillon DO [Med Staff - Active Staff] - 1-2 Weeks Rj Alejandro MD [Primary Care Provider] - Disposition Disposition: Home, Self Care
[2023-05-30] MEDS: Ipratropium/Albuterol Sulfate 3 ML AMPUL.NEB INHALATION (09:04)
[2023-05-30 09:06] VITALS: RESP 16
--- NOTE | 2023-05-30 09:25 | RAD_ITS ---
INDICATION: cough EXAMINATION/TECHNIQUE: X-RAY - XR Chest 2 Views COMPARISON: Prior study dated: 02/14/2021. FINDINGS: LINES/DEVICES: None. LUNGS: No consolidation, edema or effusion. No pneumothorax. MEDIASTINUM AND CARDIOVASCULAR STRUCTURES: Cardiac silhouette not enlarged. Central airways and mediastinal contour are unremarkable. BONES AND SOFT TISSUES: Unremarkable. RAD/Chest PA and Lateral IMPRESSION: No radiographic evidence of acute cardiopulmonary disease. Electronically Signed: Vidal Casillas MD at 9:51 EST ,
[2023-05-30 09:28] LABS: Absolute Lymphocyte Count 1.99 X10^3/uL (0.83-4.51); Absolute Neutrophil Count 3.1 X10^3/uL (2.0-7.7); Basophil# 0.02 X10^3/uL; Basophil% 0.3 % (0-1); Eosinophil# 0.23 X10^3/uL; Eosinophils% 3.9 % (0-5); Hematocrit 40.2 % (37-47); Hemoglobin 13.6 g/dL (12.0-15.0); Lymphocyte # 1.99 X10^3/ul (0.83-4.51); Mean Corp Hgb Conc 33.8 g/dL (32-36); Mean Corpuscular Hgb 28.9 pg (27.0-32.0); Mean Corpuscular Volume 85.5 fL (81-99); Mean Platelet Vol. 8.9 fl (6.2-12.0); Monocyte# 0.53 X10^3/uL; NRBC Flagged by Analyzer 0 % (0-5); Neutrophil # 3.07 X10^3/uL (2.7-7.7); Neutrophil % 52.5 % (47-70); Platelet Count 252 K/mm3 (150-450); RBC Distribution Width CV 12.6 % (11.6-14.6); RBC Distribution Width SD 39.4 fl (35.1-43.9); White Blood Count 5.9 K/mm3 (4.4-11.0)
[2023-05-30 09:44] LABS: Anion Gap 5 (5-15); BUN 14 mg/dL (7-18); BUN/Creat Ratio 17.5 RATIO (10-20); Calcium,Total 8.8 mg/dL (8.5-10.1); Chloride 109 mmol/L (98-107); EST Glomerular Filtration Rate 84 mL/min (>60); Est Glom Filt Rate - Afr Amer 101 mL/min (>60); Estimated Creatinine Clearance 82.43 ml/min; Glucose 94 mg/dL (74-106); Potassium 3.8 mmol/L (3.5-5.1); Sodium Level 138 mmol/L (136-145)
[2023-05-30 09:47] LABS: Internal QC Validated? YES +Cl - CLEAR BKGD; Pregnancy, Serum, hCG Quali. NEGATIVE Negative
[2023-05-30 09:49] LABS: D-Dimer Quantitative (DVT/PE) 0.38 FEU/ug/m (0.27-0.49)
[2023-05-30 10:04] VITALS: BP 119/97; PULSE 87; RESP 16; O2SAT 98
== END 2023-05-30 10:05 | disposition home or self-care (01) ==
PROVIDERS: Emergency Provider Emergency Medicine; PCP Family Medicine; Referring Provider Emergency Medicine; Visit Provider Emergency Medicine
DX: J10.1 Influenza due to other identified influenza virus with other respiratory manifestations (principal); Z87.891 Personal history of nicotine dependence
CPT/HCPCS: 70360; 71046; 80048; 84703; 85025; 85379; 87428; 94640; 99283

== ENCOUNTER 2024-02-10 00:14 | Emergency (ER) | payer OTHER, SELFPAY ==
[2024-02-10] VITALS (12 sets, daily range): BP systolic 112–136; BP diastolic 77–94; PULSE 62–81; RESP 13–24; TEMP 36.3–36.6; O2SAT 96–100
--- NOTE | 2024-02-10 00:23 | EKG12_ITS ---
Test Reason : CP Blood Pressure : / mmHG Vent. Rate : 066 BPM Atrial Rate : 066 BPM P-R Int : 158 ms QRS Dur : 076 ms QT Int : 388 ms P-R-T Axes : 051 033 029 degrees QTc Int : 406 ms Normal sinus rhythm with sinus arrhythmia Normal ECG Confirmed by CONCETTA SUH, TYLER ([id number]), photography editor LAURENCE DUKES ([id number]) on 02/12/2024 6:50:42 AM Referred By: Confirmed By:TYLER HYLTON MD
--- NOTE | 2024-02-10 00:25 | EX.ED.DYSGE1 ---
HPI History of Present Illness Chief Complaint: Chest Pain Detail of Chief Complaint: Chest and abdomen pain Informant: patient Narrative Narrative: Patient presents to the emergency department with upper abdomen and chest pain that started within the last hour. Patient states that it woke her up from sleep. She describes some nausea. Pain in the upper abdomen wraps around to her back and goes into her chest. Denies eating anything spicy or greasy prior to going to bed. She is never had pain like this before. She rates her pain a 10 out of 10. She denies urinary symptoms. Patient tells me that she is just now testing negative for COVID-19 as she had recent COVID-19 illness. No prior abdominal surgeries. No significant family history for heart disease. She herself has not had any history of PE or DVT or coronary artery disease. [facility] Medical History Anxiety Asthma Environmental allergies Migraine Home Medications ?Medication ?Instructions ?Recorded ?Last Taken ?Type albuterol sulfate 90 mcg/actuation 1 - 2 puff inhalation Q6H PRN PRN 06/17/16 Unknown History aerosol inhaler (Ventolin HFA) Sob &/Or Wheezing lansoprazole 30 mg capsule,delayed 30 mg PO DAILY #14 caps 02/10/24 Unknown Rx release (Prevacid) Allergy/AdvReac Type Severity Reaction Status Date / Time amoxicillin (From Augmentin) AdvReac Mild Abd Verified 02/10/24 00:15 cramps/diarrhea clavulanic acid (From AdvReac Mild Abd Verified 02/10/24 00:15 Augmentin) cramps/diarrhea Social History household members: none Smoking Status: Former smoker alcohol intake: current alcohol intake frequency: holidays/special occasions only substance use type: does not use ROS ROS ED Review of Systems ROS Unobtainable: other Constitutional Constitutional ED: Reports lethargy; Denies chills, fever(s), sweats or weight loss Eyes Eyes: Denies blurry vision, change in vision or diplopia ENT ENT ED: Denies rhinorrhea or sore throat Cardiovascular Cardiovascular: Reports chest pain; Denies orthopnea or racing heartbeat Respiratory/Chest Respiratory/Chest: Denies cough, dyspnea, dyspnea on exertion, orthopnea or sputum Gastrointestinal Gastrointestinal: Reports abdominal pain and nausea; Denies diarrhea or vomiting Genitourinary Genitourinary ED: Denies dysuria, hematuria or urinary frequency Musculoskeletal Musculoskeletal: Denies arthralgias, back pain, myalgias or neck pain Integumentary Denies abscess, Abrasions or rash Neurologic Neurologic: Denies headache(s) or weakness Psychiatric Psychiatric: Denies anxiety, depression or suicidal thoughts Endocrine Endocrinology: Denies polydipsia, polyphagia or polyuria Hematologic/Lymphatic Hematologic/Lymphatic: Denies easy bleeding, easy bruising or lymphadenopathy Allergic/Immunologic Allergic/Immunologic ED: Denies mouth swelling, tongue swelling or urticaria EXAM Physical Exam Const Vital Signs: 02/10/24 00:15 02/10/24 00:18 02/10/24 00:41 Temperature 97.9 F Temperature Source Oral Pulse Rate 76 81 Respiratory Rate 18 24 H Respiratory Effort Normal Non-Labored Blood Pressure 136/94 H Blood Pressure Mean 108 Pulse Ox 100 100 Oxygen Delivery Method Room Air 02/10/24 00:45 02/10/24 01:00 02/10/24 01:14 Temperature Temperature Source Pulse Rate 70 63 Respiratory Rate 14 18 Respiratory Effort Blood Pressure 117/80 Blood Pressure Mean 92 Pulse Ox 99 100 100 Oxygen Delivery Method Room Air 02/10/24 01:15 02/10/24 01:30 02/10/24 01:52 Temperature Temperature Source Pulse Rate Respiratory Rate Respiratory Effort Blood Pressure Blood Pressure Mean Pulse Ox 97 99 100 Oxygen Delivery Method 02/10/24 01:55 02/10/24 02:00 02/10/24 02:15 Temperature Temperature Source Pulse Rate 70 65 70 Respiratory Rate 22 H 13 13 Respiratory Effort Blood Pressure 117/80 124/80 H 112/77 Blood Pressure Mean 91 93 88 Pulse Ox 100 99 96 Oxygen Delivery Method Positive well nourished and well developed General Appearance ED: well developed and NAD HEENT Reports TM's clear and moist mucous membranes normocephalic and atraumatic; Negative for trauma or tenderness Tympanic Membrane ED: Yes TM's clear Eyes PERRL and EOMs intact bilaterally General Eye ED: Negative for pale conjunctiva or scleral icterus Neck no lymphadenopathy, supple and no JVD General: Negative for tenderness Chest Wall inspection of chest normal and palpation of chest normal Chest: Negative for tenderness Resp normal respiratory effort and clear to auscultation bilaterally Effort and Inspection: Negative for respiratory distress or pain with movement Auscultation: Negative for rhonchi, wheezes or diminished lung sounds Cardio regular rate, regular rhythm, S1 normal heart sound, S2 normal heart sound and no murmurs Peripheral Pulses: pulses 2+ throughout GI normal to inspection, nondistended, normoactive bowel sounds, soft to palpation, non-distended and no masses GI Narrative: Tenderness palpation over the epigastric region and right upper quadrant with guarding. She has a positive [place] sign. Back/Spine no CVA tenderness and no thoracic nor lumbar tenderness Extremity normal to inspection General Extremety ED: Negative for edema General Extremity: Negative for edema Neuro oriented x3, CN's II-XII intact bilaterally, no sensory deficits noted and gait normal Sensorium / Orientation: awake, alert, oriented to person, oriented to place and oriented to time Motor Exam: strength 5/5 throughout and strength abnormal Psych mental status grossly normal Skin no rashes or lesions noted and no wounds MDM MDM MDM Narrative Medical decision making narrative: Patient presents with upper abdomen pain and discomfort into her chest that woke her up from sleep. No risk factors for heart disease. In the differential would be gallbladder disease versus pancreatitis or peptic ulcer disease. Less likely cardiac disease or PE. IV line established. CBC with differential obtained showed white count of 8.8 with hemoglobin 12.9 and platelet count of 275. Chemistries unremarkable. LFTs were normal. Lipase was normal. hCG was negative. CT scan of the abdomen pelvis with IV contrast was normal. Patient also had a D-dimer that was normal and a normal troponin. While in the department she received a milligram of Dilaudid and Zofran. She had good pain relief with that. I also gave her a dose of Protonix IV and she is resting comfortably and the pains basically resolved. Clinically she looks well and her exam of her abdomen is benign. Will start her on Prevacid and advised to follow-up with primary care physician within next 3 to 5 days. She is advised to return if worsening pain, fever, vomiting, or condition should worsen anyway. Lab Data Attestation: I reviewed the patient's lab results. Labs: Laboratory Results - last 24 hr 02/10/24 00:25 WBC 8.8 RBC 4.60 Hgb 12.9 Hct 39.3 MCV 85.4 MCH 28.0 MCHC 32.8 RDW Std Deviation 36.8 RDW Coeff of Wilfredo 11.9 Plt Count 275 MPV 9.2 Immature Gran % (Auto) 0.200 Neut % (Auto) 55.4 Lymph % (Auto) 29.6 [place] % (Auto) 7.5 Eos % (Auto) 7.0 H Baso % (Auto) 0.3 Absolute Neuts (auto) 4.9 Absolute Lymphs (auto) 2.59 Nucleated RBC % 0 D-Dimer Quant (PE/DVT) 0.45 Sodium 139 Potassium 3.6 Chloride 106 Carbon Dioxide 26.0 Anion Gap 7 BUN 15 Creatinine 0.89 Est GFR (MDRD) Af Amer 88 Est GFR (MDRD) Non-Af 73 BUN/Creatinine Ratio 16.8 Glucose 101 Calcium 9.1 Total Bilirubin 0.20 AST 8 L ALT 17 Alkaline Phosphatase 60 Troponin I High Sens < 3 L Total Protein 7.3 Albumin 3.7 Globulin 3.6 Albumin/Globulin Ratio 1.0 Lipase 75 Serum , Qual NEGATIVE Radiography Diagnostic Testing: Clinical Impression(s) from Imaging Studies Abdomen/Pelvis CT 02/10/24 01:17 IMPRESSION: No acute finding in the abdomen or pelvis. No inflammatory changes. Right lower pole renal calculus. Electronically Signed: Rob Bernal MD at 2:26 EDT Reading Location ID and State: [facility] / [place] Tel , Service support , EKG Initial EKG: Attestation: I personally reviewed and interpreted this EKG as follows: Comments: Sinus rhythm with rate of 66 bpm with no acute ST segment changes, occasional PACs Discharge Plan Triage Chief Complaint: Chest Pain ED Provider: Mirtha Silver Dx/Rx/DC Orders Clinical Impression: Abdominal pain, Chest pain Instructions: ED Abdominal Pain Unkn Cause Fem, ED Chest Pain, Uncertain Cause Prescriptions: New lansoprazole [Prevacid] 30 mg capsule,delayed release(DR/EC) 30 mg PO DAILY Qty: 14 0RF No Action albuterol sulfate [Ventolin HFA] 1 INHALER inhaler 1 - 2 puff inhalation Q6H PRN PRN (Reason: Sob &/Or Wheezing) Primary Care Provider: Rj Alejandro Referrals: Rj Alejandro MD [Primary Care Provider] - 3-5 Days Print Language: Togolese Disposition Disposition: Home, Self Care
[2024-02-10] MEDS: Ondansetron 4 MG/2 ML Vial IV (00:34)
[2024-02-10] MEDS: HYDROmorphone 1 MG/ML Syringe IV (00:34)
[2024-02-10] MEDS: 0.9% Normal Saline (1000mL) 1,000 ML 150 ML IV (00:34)
[2024-02-10 00:38] LABS: Absolute Lymphocyte Count 2.59 X10^3/uL (0.83-4.51); Absolute Neutrophil Count 4.9 X10^3/uL (2.0-7.7); Basophil# 0.03 X10^3/uL; Basophil% 0.3 % (0-1); Eosinophil# 0.61 X10^3/uL; Hematocrit 39.3 % (37-47); Hemoglobin 12.9 g/dL (12.0-15.0); Lymphocyte # 2.59 X10^3/ul (0.83-4.51); Lymphocyte % 29.6 % (19-41); Mean Corp Hgb Conc 32.8 g/dL (32-36); Mean Corpuscular Volume 85.4 fL (81-99); Mean Platelet Vol. 9.2 fl (6.2-12.0); Monocyte# 0.66 X10^3/uL; Monocyte% 7.5 % (0-10); NRBC Flagged by Analyzer 0 % (0-5); Neutrophil # 4.85 X10^3/uL (2.7-7.7); Neutrophil % 55.4 % (47-70); Platelet Count 275 K/mm3 (150-450); RBC Distribution Width CV 11.9 % (11.6-14.6); RBC Distribution Width SD 36.8 fl (35.1-43.9); White Blood Count 8.8 K/mm3 (4.4-11.0)
[2024-02-10 00:50] LABS: D-Dimer Quantitative (DVT/PE) 0.45 FEU/ug/m (0.27-0.49)
[2024-02-10 00:54] LABS: Internal QC Validated? YES +Cl - CLEAR BKGD; Pregnancy, Serum, hCG Quali. NEGATIVE Negative; Record Kit Lot#, Serum Preg. 772476
[2024-02-10 00:58] LABS: AST(SGOT) 8 U/L (15-37); Alanine Aminotransfer ALT/SGPT 17 U/L (13-56); Albumin, Serum 3.7 g/dL (3.2-5.0); Alkaline Phosphatase 60 U/L (45-117); Anion Gap 7 (5-15); BUN 15 mg/dL (7-18); BUN/Creat Ratio 16.8 RATIO (10-20); Calcium,Total 9.1 mg/dL (8.5-10.1); Chloride 106 mmol/L (98-107); Creatinine, Serum 0.89 mg/dL (0.55-1.02); EST Glomerular Filtration Rate 73 mL/min (>60); Est Glom Filt Rate - Afr Amer 88 mL/min (>60); Globulin 3.6 g/dL (2.2-4.2); Glucose 101 mg/dL (74-106); Lipase 75 U/L (13-75); Potassium 3.6 mmol/L (3.5-5.1); Protein, Total 7.3 g/dL (6.4-8.2); Sodium Level 139 mmol/L (136-145); Troponin-I HS < 3 pg/mL (3.0-54.0)
--- NOTE | 2024-02-10 01:17 | CT_ITS ---
STUDY: CT ABDOMEN AND PELVIS WITH CONTRAST REASON FOR EXAM: Female, 43 years old. abdominal lpain RADIATION DOSAGE (If Supplied By Facility): CTDIvol = ( 16.92 ) mGy, DLP = ( 1058.37 ) mGycm TECHNIQUE: IV 100mL Isovue-300 was administered. Transaxial images were obtained from the dome of the diaphragm to the symphysis pubis in the portal venous phase. Multiplanar coronal and sagittal images were reformatted. Individualized Dose Optimization Techniques Were Used For This CT. COMPARISON: Prior study dated: 12/05/2013 FINDINGS: LOWER CHEST: Bibasilar atelectasis. No cardiomegaly or pericardial effusion. LIVER: The liver is normal in size, shape, and attenuation. No focal mass. GALLBLADDER AND BILIARY TREE: The gallbladder is normally distended. No gallstones. No gallbladder wall thickening or edema. No pericholecystic fluid. No intra- or extrahepatic biliary ductal dilation. PANCREAS: No focal cystic or solid mass. SPLEEN: Normal size without focal cystic or solid mass. ADRENAL GLANDS: No nodules. KIDNEYS AND URETERS: Normal renal size and position. No hydronephrosis. Right lower pole renal calculus measures 0.3 cm. PERITONEUM: No ascites or free air. No other fluid collection. BOWEL: The stomach is unremarkable. Normal caliber small bowel. There is no obstruction. No colonic wall thickening or inflammation. Mild colonic stool burden. No evidence of acute appendicitis. LYMPH NODES: No enlarged mesenteric or retroperitoneal lymph nodes. VESSELS: The aorta is normal in caliber with mild atherosclerotic calcification. URINARY BLADDER: Unremarkable. REPRODUCTIVE ORGANS: No pelvic masses. Bilateral Essure device. ABDOMINAL WALL: No discrete abdominal or pelvic wall hernia. BONES: Disc space narrowing of L4-L5 with vacuum disc phenomenon. CT/Abdomen/Pelvis W IV Cont ONLY IMPRESSION: No acute finding in the abdomen or pelvis. No inflammatory changes. Right lower pole renal calculus. Electronically Signed: Rob Bernal MD at 2:26 EDT ,
[2024-02-10] MEDS: Pantoprazole Sodium 40 MG in 0.9% Normal Saline (100mL MB+) 100 ML 330 MG IV (01:48)
== END 2024-02-10 03:14 | disposition home or self-care (01) ==
PROVIDERS: Emergency Provider Emergency Medicine; PCP Family Medicine; Visit Provider Emergency Medicine
DX: R10.9 Unspecified abdominal pain (principal); R07.9 Chest pain, unspecified; Z87.891 Personal history of nicotine dependence; J45.909 Unspecified asthma, uncomplicated
CPT/HCPCS: 74177; 80053; 83690; 84484; 84703; 85025; 85379; 93005; 96361; 96365; 96366; 96375; 99283; J7030; Q9967; J2405

== ENCOUNTER 2024-10-07 18:36 | Emergency (ER) | payer OTHER, SELFPAY ==
[2024-10-07 18:37] VITALS: BP 126/88; PULSE 88; RESP 16; TEMP 36.6; O2SAT 98; BMI 30.9
[2024-10-07 20:37] VITALS: BP 138/78; PULSE 78; RESP 18; O2SAT 98
[2024-10-07 22:00] VITALS: BP 130/82; PULSE 78; RESP 19; O2SAT 98
--- NOTE | 2024-10-07 22:08 | ED.VIS.BACK ---
HPI History of Present Illness Chief Complaint: Back Informant: patient Narrative Narrative: Nontraumatic mid back pain waking up this morning. Pain radiates to the sides. Symptoms worse with movement. Using Tylenol Motrin last dose 5 PM. Has had lower back issues in the past. 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 Unable to work therefore came down to the ED. Allergies to Augmentin. History of asthma and seasonal allergies. Has not had pain in this area in the past. Prior similar symptoms: No PFSH PFSH Medical History Cardiac murmur Dyspnea Chest discomfort Fatigue Kidney stones Obesity (BMI 30.0-34.9) Depression Lightheadedness Palpitations Environmental allergies Asthma Migraine Anxiety Home Medications ?Medication ?Instructions ?Recorded ?Last Taken ?Type albuterol sulfate 90 mcg/actuation 1 - 2 puff inhalation Q6H PRN PRN 06/17/16 Unknown History aerosol inhaler (Ventolin HFA) Sob &/Or Wheezing famotidine 20 mg tablet (Pepcid) 20 mg PO QHS 07/23/24 Unknown History bupropion HCl 150 mg tablet,12 hr 150 mg PO BID 08/21/24 Unknown History sustained-release diazepam 5 mg tablet 5 mg PO Q8 PRN Muscle Spasm #20 10/07/24 Unknown Rx tabs fluticasone 100 mcg-salmeterol 50 1 inh inhalation DAILY 10/07/24 Unknown History mcg/dose blistr powdr for inhalation (Advair Diskus) ibuprofen 600 mg tablet 600 mg PO Q6H PRN PRN pain #20 10/07/24 Unknown Rx TABLETS Allergy/AdvReac Type Severity Reaction Status Date / Time amoxicillin (From Augmentin) AdvReac Mild Abd Verified 10/07/24 18:37 cramps/diarrhea clavulanic acid (From AdvReac Mild Abd Verified 10/07/24 18:37 Augmentin) cramps/diarrhea Family History Father Asthma Obesity Grandfather COPD (chronic obstructive pulmonary disease) Obesity Son Asthma Mother Obesity Surgical History Hx of oral surgery Social History household members: none Smoking Status: Former smoker Electronic Cigarette Use: with nicotine alcohol intake: current alcohol intake frequency: holidays/special occasions only substance use type: does not use ROS ROS ED Constitutional Constitutional ED: Denies fever(s) Gastrointestinal Gastrointestinal: Denies diarrhea, nausea or vomiting Musculoskeletal Musculoskeletal: Reports back pain; Denies extremity pain Neurologic Neurologic: Denies paresthesias or weakness EXAM Physical Exam Const Vital Signs: 10/07/24 18:37 10/07/24 20:37 10/07/24 22:00 Temperature 97.9 F Temperature Source Temporal Pulse Rate 88 78 78 Respiratory Rate 16 18 19 H Blood Pressure 126/88 H 138/78 H 130/82 H Blood Pressure Mean 100 98 98 Pulse Ox 98 98 98 Oxygen Delivery Method Room Air 10/07/24 23:04 Temperature 98.3 F Temperature Source Pulse Rate 78 Respiratory Rate 19 H Blood Pressure 130/82 H Blood Pressure Mean 98 Pulse Ox 98 Oxygen Delivery Method Positive well nourished and well developed Constitutional Narrative: Standing in room, nontoxic General Appearance ED: well developed HEENT Reports moist mucous membranes normocephalic and atraumatic Eyes General Eye ED: Yes normal appearance of both eyes Neck full ROM Chest Wall Chest: Negative for tenderness Resp normal respiratory effort and normal air movement Effort and Inspection: symmetric chest movement; Negative for respiratory distress Cardio regular rate, regular rhythm and no murmurs Peripheral Pulses: pulses 2+ throughout GI normal to inspection, nondistended, normoactive bowel sounds and non-tender Palpation: Negative for guarding or rebound tenderness present Back/Spine Back/Spine Narrative: No midline tenderness, reproduced tenderness thoracic spine T10 area with rotation sidebending to the right. Extremity normal to inspection General Extremety ED: Negative for edema or tenderness General Extremity: Negative for edema Neuro oriented x3 and no sensory deficits noted Sensorium / Orientation: awake and alert Skin no rashes or lesions noted and no wounds MDM MDM MDM Narrative Medical decision making narrative: Interventions / MDM: Differential diagnosis: Thoracic strain, somatic dysfunction thoracic spine Diagnosis considered but do not suspect: Fracture however no clinical injury. My EKG interpretation: N/A Imaging independently reviewed and interpreted by myself: N/A External documents reviewed: N/A Test considered but not ordered: X-ray however reproducible somatic dysfunction with muscle strain. ED course: Exam consistent with somatic dysfunction thoracic spine at T10 rotated to the right. Will start Motrin and Valium. Discussed osteopathic manipulation. 2244: Patient was medicated, verbal consent with patient for osteopathic manipulation. Hard board placed under patient's back, osteopathic condition with gentle HVLA performed T10 region. There was improved symptoms and improved movement. Patient still was sore, states natural inflammatory process at this time. She will drink plenty of water. She will continue NSAIDs and muscle relaxers as needed. Outpatient follow-up. All questions answered. Re-evaluation: stable Disposition discussed with patient/family/significant other: Patient Case discussed with consulting clinician: N/A This note was generated with [employer] dictation software. It may contain incorrect words, spelling, and punctuation that were not noted in checking the note before signing. Discharge Plan Triage Chief Complaint: Back ED Provider: Fernando Parra Dx/Rx/DC Orders Clinical Impression: Strain of thoracic spine, Thoracic region somatic dysfunction Instructions: ED Thoracic Spine Strain Prescriptions: New ibuprofen 600 mg tablet 600 mg PO Q6H PRN PRN (Reason: pain) Qty: 20 0RF diazepam 5 mg tablet 5 mg PO Q8 PRN (Reason: Muscle Spasm) Qty: 20 0RF No Action famotidine [Pepcid] 20 mg tablet 20 mg PO QHS bupropion HCl 150 mg tablet sustained-release 12 hr 150 mg PO BID albuterol sulfate [Ventolin HFA] 1 INHALER inhaler 1 - 2 puff inhalation Q6H PRN PRN (Reason: Sob &/Or Wheezing) fluticasone propion-salmeterol [Advair Diskus] 100-50 mcg/dose blister with device 1 inh inhalation DAILY Stand Alone Forms: ED Work / School Excuse Primary Care Provider: [facility] Doctor,Out of Referrals: [facility] Doctor,Out of [Primary Care Provider] - Activity Restrictions/Additional Instructions: Status post HVLA to thoracic spine. Continue ibuprofen help inflammation. Use Valium as needed. Follow-up with your doctor. Print Language: Tajik Disposition Disposition: Home, Self Care Discharge Date/Time: 10/07/24 23:04
[2024-10-07] MEDS: Ibuprofen 600 MG Tablet PO (22:16)
[2024-10-07] MEDS: diazePAM 5 MG Tablet PO (22:16)
[2024-10-07 23:04] VITALS: BP 130/82; PULSE 78; RESP 19; TEMP 36.8; O2SAT 98
== END 2024-10-07 23:04 | disposition home or self-care (01) ==
PROVIDERS: Emergency Provider Emergency Medicine; Visit Provider Emergency Medicine
DX: S29.012A Strain of muscle and tendon of back wall of thorax, initial encounter (principal); Z87.891 Personal history of nicotine dependence; M99.02 Segmental and somatic dysfunction of thoracic region; J45.909 Unspecified asthma, uncomplicated; X58.XXXA Exposure to other specified factors, initial encounter
CPT/HCPCS: 99283

== ENCOUNTER 2025-03-13 09:24 | Emergency (ER) | payer OTHER, SELFPAY ==
[2025-03-13 09:25] VITALS: BP 139/91; PULSE 67; RESP 18; TEMP 36.6; O2SAT 98; BMI 29.9
--- NOTE | 2025-03-13 09:39 | CT_ITS ---
PROCEDURE: ABDOMEN/PELVIS W IV CONT ONLY 03/13/2025 REASON FOR EXAM: LLQ ABD PAIN TECHNIQUE: Procedure Code: [id number] Modality: CT Procedure: ABDOMEN/PELVIS W IV CONT ONLY Coronal and Sagittal reconstruction series were provided. CONTRAST: Isovue 300 VOLUME: 98 mL One or more dose reduction techniques were used (e.g., Automated exposure control, adjustment of the mA and/or kV according to patient size, use of iterative reconstruction technique. RADIATION DOSE SUMMARY: CTDlvol: 27 mGy DLP: 863 mGycm COMPARISON: None FINDINGS: Lung bases: Clear Liver: Normal Gallbladder: Nitrogen containing stones are seen within the gallbladder lumen. No wall thickening or pericholecystic fluid. No biliary ductal dilation. Spleen: Normal Pancreas: Normal Adrenals: Normal Kidneys: 3 mm calculus anterior right lower pole is nonobstructing. Mild hydronephrosis and hydroureter related to a calculus that is in the distal ureter located a few cm proximal to the ureterovesical junction. The calculus is 6 mm in size. Bladder: Normal Reproductive Organs: Uterus is anteverted. Essure type devices are present. Ovaries are normal. Bowel: Stomach, small bowel and colon appear normal. Appendix: Normal Lymph nodes: None appear enlarged Vasculature: Mild atherosclerotic plaque without aneurysm. Peritoneum / Retroperitoneum: No free air, free fluid or mass. Bones: Disc space narrowing, marginal endplate spurring and vacuum disc phenomenon L4/5. Mild disc space narrowing L5/S1. CT/Abdomen/Pelvis W IV Cont ONLY IMPRESSION: Mild hydronephrosis and hydroureter related to a 6 mm calculus in the distal ur eter on the left side just proximal to the ureterovesical junction. Nonobstructing calculus right kidney. Normal appendix Cholelithiasis Reading Location: [id number]
--- NOTE | 2025-03-13 09:39 | ED.VIS.GI ---
HPI HPI - GI History of Present Illness Chief Complaint: Abd Pain Informant: patient Abdominal Pain/Flank Pain Onset: Days Context: Gradual Onset Timing: Continuous Quality: Aching Location: LUQ Current Severity: Moderate Maximum Severity: Moderate Worsened by: Nothing Relieved by: Nothing Nausea/Vomiting/Emesis GI Symptom: Positive for Nausea; Negative for Vomiting Severity: Mild Diarrhea/Melena/Hematochezia GI Symptom: Negative for Diarrhea, Melena or Hematochezia Associated Symptoms Associated Symptoms: Positive for Dysuria; Negative for Hematuria or Urgency Narrative Narrative: Patient is a 44-year-old female presenting with lower abdominal pain and dysuria for 4 days. - Reports onset of cramping lower abdominal pain 4 days ago, described as intermittent sharp lightning bolt pain. - Initially suspected a UTI, given her history of recurrent UTIs, and took unspecified medication for it without relief. - Associated symptoms include urinary pressure and cloudy urine. - Denies fever, chills, emesis, diarrhea, or constipation. - Pain is constant, with no identified alleviating or exacerbating factors; has tried Tylenol, ibuprofen, and an unspecified medication for UTI without relief. - Denies any previous diagnosis of diverticulitis. - No history of abdominal surgeries; has had an ablation and tubal blockage in the past. - No recent hospital admissions. Prior similar symptoms: Yes Recent Illness/Hospitalization: No [facility] Medical History Cardiac murmur Dyspnea Chest discomfort Fatigue Kidney stones Obesity (BMI 30.0-34.9) Depression Lightheadedness Palpitations Environmental allergies Asthma Migraine Anxiety Home Medications ?Medication ?Instructions ?Recorded ?Last Taken ?Type albuterol sulfate 90 mcg/actuation 1 - 2 puff inhalation Q6H PRN PRN 06/17/16 Unknown History aerosol inhaler (Ventolin HFA) Sob &/Or Wheezing famotidine 20 mg tablet (Pepcid) 20 mg PO QHS 07/23/24 Unknown History bupropion HCl 150 mg tablet,12 hr 150 mg PO BID 08/21/24 Unknown History sustained-release diazepam 5 mg tablet 5 mg PO Q8 PRN Muscle Spasm #20 10/07/24 Unknown Rx tabs fluticasone 100 mcg-salmeterol 50 1 inh inhalation DAILY 10/07/24 Unknown History mcg/dose blistr powdr for inhalation (Advair Diskus) ibuprofen 600 mg tablet 600 mg PO Q6H PRN PRN pain #20 10/07/24 Unknown Rx TABLETS cephalexin 500 mg capsule 500 mg PO Q6 7 days #28 CAPSULES 03/13/25 Unknown Rx fluconazole 200 mg tablet 200 mg PO DAILY #1 TAB 03/13/25 Unknown Rx tamsulosin 0.4 mg capsule (Flomax) 0.4 mg PO DAILY 3 days #3 caps 03/13/25 Unknown Rx Allergy/AdvReac Type Severity Reaction Status Date / Time amoxicillin (From Augmentin) AdvReac Mild Abd Verified 03/13/25 09:24 cramps/diarrhea clavulanic acid (From AdvReac Mild Abd Verified 03/13/25 09:24 Augmentin) cramps/diarrhea Family History Father Asthma Obesity Grandfather COPD (chronic obstructive pulmonary disease) Obesity Son Asthma Mother Obesity Surgical History Hx of oral surgery Social History household members: none Smoking Status: Current every day smoker tobacco type: cigarettes and e-cigarettes Electronic Cigarette Use: with nicotine alcohol intake: current alcohol intake frequency: holidays/special occasions only substance use type: does not use ROS ROS ED ROS Narrative Left lower quadrant abdominal pain. Nausea. No vomiting. No diarrhea or fever. No constipation. No fever or chills. Positive dysuria. Constitutional Constitutional ED: Denies chills or fever(s) ENT ENT ED: Denies ear pain Cardiovascular Cardiovascular: Denies chest pain Respiratory/Chest Respiratory/Chest: Denies cough Gastrointestinal Gastrointestinal: Reports abdominal pain and nausea; Denies constipation, diarrhea, melena or vomiting Genitourinary Genitourinary ED: Reports dysuria Musculoskeletal Musculoskeletal: Denies arthralgias or back pain Integumentary Denies abscess Neurologic Neurologic: Denies headache(s) Psychiatric Psychiatric: Denies anxiety Endocrine Endocrinology: Denies polydipsia Hematologic/Lymphatic Hematologic/Lymphatic: Denies easy bleeding or easy bruising Allergic/Immunologic Allergic/Immunologic ED: Denies mouth swelling, tongue swelling or urticaria EXAM Physical Exam Narrative Exam Narrative: 41-year-old female sitting upright in bed. Vital signs stable afebrile. No acute distress other than having some pain. H EENT exam pupils round react to light. Moist mucous membranes. Neck nontender. Lungs clear. Heart regular rhythm no murmur rate about 70. Chest wall ribs nontender. Back nontender. Abdomen left lower quadrant tenderness. No rebound guarding or rigidity. No obstruction or distention. No hernia or mass. Right upper right lower quadrant unremarkable. Moving all 4 extremities. Normal strength. Nontender no edema. Awake and alert. No focal motor deficits. Const Vital Signs: 03/13/25 09:25 03/13/25 11:24 Temperature 98 F Temperature Source Oral Pulse Rate 67 64 Respiratory Rate 18 18 Blood Pressure 139/91 H 136/78 H Blood Pressure Mean 107 97 Pulse Ox 98 97 Oxygen Delivery Method Room Air Room Air MDM MDM MDM Narrative Medical decision making narrative: 44-year-old female left lower quadrant abdominal pain differential would include UTI, kidney stone, diverticulitis. She had both a uterine ablation and tubal ligation I do not think she is . She be treated with IV morphine, Toradol for pain. And Zofran for nausea. CAT scan and labs will be obtained. Repeat exam patient was given second dose of pain medication currently she is resting comfortably 12:30 PM. I have a call out to the urologist to discuss her case. Dr. Johana Ritter and I discussed the patient's exam, past medical history and current labs and CT. She is comfortable with her being discharged home. Patient be placed on Keflex 4 times a day. She did not want any narcotic pain medication that is the patient did not. Placed on Flomax. Outpatient follow-up with the urologist. Patient is comfortable plan and wants to be discharged to home. History & Record Review Discussion w/independent historian: Patient Additional record(s) reviewed:: Prior inpatient record, Prior outpatient record, Prior ED visit and Prior labs Lab Data Attestation: I reviewed the patient's lab results. Lab results narrative: CBC normal. White count of 7. H&H 14 and 42. Platelets 329. Electrolytes show gap 9. Normal BUN and creatinine 9 and 0.8. Glucose 94. Serum Prag negative. Urinalysis positive nitrates. 10-25 white cells. 1+ bacteria. Consistent with a UTI. CAT scan shows a 6 mm left UVJ stone with hydroureter and hydronephrosis consistent with obstruction. Labs: Laboratory Results - last 24 hr 03/13/25 03/13/25 10:00 10:06 WBC 7.3 RBC 4.92 Hgb 14.4 Hct 42.2 MCV 85.8 MCH 29.3 MCHC 34.1 RDW Std Deviation 37.8 RDW Coeff of Wilfredo 12.0 Plt Count 329 MPV 9.2 Immature Gran % (Auto) 0.400 Neut % (Auto) 71.4 H Lymph % (Auto) 17.5 L Nye % (Auto) 6.3 Eos % (Auto) 4.0 Baso % (Auto) 0.4 Absolute Neuts (auto) 5.2 Absolute Lymphs (auto) 1.27 Nucleated RBC % 0 Sodium 138 Potassium 3.9 Chloride 104 Carbon Dioxide 25.2 Anion Gap 9 BUN 9 Creatinine 0.85 Estim Creat Clear Calc 89.15 Est GFR (MDRD) Non-Af 87 BUN/Creatinine Ratio 11.1 Glucose 94 Calcium 9.0 Serum , Qual NEGATIVE Urine Color Yellow Urine Clarity Sl. Cloudy Urine pH 6.0 Ur Specific [place] 1.020 Urine Protein 30 H Urine Glucose (UA) Normal Urine Ketones Negative Urine Occult Blood 50 H Urine Nitrite Positive H Urine Bilirubin 1 H Urine Urobilinogen 1 H Ur Leukocyte Esterase 500 H Urine RBC 0 SEEN Urine WBC 10-25 SEEN Ur Squamous Epith Cells 5-10 SEEN Urine Bacteria 1+ Urine Mucus 0 SEEN Radiography Diagnostic Testing: Clinical Impression(s) from Imaging Studies Abdomen/Pelvis CT 03/13/25 09:39 IMPRESSION: Mild hydronephrosis and hydroureter related to a 6 mm calculus in the distal ureter on the left side just proximal to the ureterovesical junction. Nonobstructing calculus right kidney. Normal appendix Cholelithiasis Reading Location: [facility] Discharge Plan Triage Chief Complaint: Abd Pain ED Provider: Derek Sanchez Dx/Rx/DC Orders Clinical Impression: Acute left flank pain, Kidney stone on left side, UTI (urinary tract infection) Instructions: UTIs, ED Kidney Stone with Pain Prescriptions: New cephalexin 500 mg capsule 500 mg PO Q6 7 Days Qty: 28 0RF fluconazole 200 mg tablet 200 mg PO DAILY Qty: 1 0RF Rx Instructions: Take after you finish taking the antibiotics to prevent a yeast infection. tamsulosin [Flomax] 0.4 mg capsule 0.4 mg PO DAILY 3 Days Qty: 3 0RF No Action famotidine [Pepcid] 20 mg tablet 20 mg PO QHS bupropion HCl 150 mg tablet sustained-release 12 hr 150 mg PO BID albuterol sulfate [Ventolin HFA] 1 INHALER inhaler 1 - 2 puff inhalation Q6H PRN PRN (Reason: Sob &/Or Wheezing) fluticasone propion-salmeterol [Advair Diskus] 100-50 mcg/dose blister with device 1 inh inhalation DAILY ibuprofen 600 mg tablet 600 mg PO Q6H PRN PRN (Reason: pain) Qty: 20 0RF diazepam 5 mg tablet 5 mg PO Q8 PRN (Reason: Muscle Spasm) Qty: 20 0RF Primary Care Provider: Rj Alejandro Referrals: Edilma Ritter MD [Med Staff - Active Staff, Urology] - As soon as possible [facility] Doctor,Out of [Non-Staff, Medical] Activity Restrictions/Additional Instructions: You have a left kidney stone almost ready to enter your bladder. Once it does that you feel a lot better. You also have a urinary tract infection. Motrin and Tylenol for pain for the stone. The antibiotic Keflex 4 times a day till gone. Flomax once daily help you pass the stone. Diflucan when you are done with antibiotic to help prevent or treat a yeast infection. If you are feeling worse increasing pain, fever, intractable vomiting or just feeling worse return. Call and follow-up with Dr. Edilma Ritter of urology. Print Language: Japanese Disposition Disposition: Home, Self Care
[2025-03-13] MEDS: Ketorolac 30 MG/ML Syringe IV (10:01)
[2025-03-13 10:10] LABS: Mucous, Urine 0 SEEN /hpf (<or=2+); Red Blood Cells-Urine 0 SEEN /hpf (0-5)
[2025-03-13 10:14] LABS: Color, Urine Yellow (Yellow); Glucose, Dipstick Normal (Normal); Ketone-Dipstick Negative (Negative); Leukocyte Esterase-Dipstick 500 /ul (Negative); Nitrite-Dipstick Positive (Negative); Occult Blood-Urine 50 /ul (Negative); Protein-Dipstick 30 mg/dl (Negative); Specific Gravity, Urine 1.020 (1.002-1.030)
[2025-03-13 10:18] LABS: Urine Bilirubin Dipstick 1 mg/dL (Negative)
[2025-03-13 10:19] LABS: Hematocrit 42.2 % (37-47); Hemoglobin 14.4 g/dL (12.0-15.0); Immature Granulocytes Count 0.030 X10^3/uL (0.0-0.0); Internal QC Validated? YES +Cl - CLEAR BKGD; Mean Corp Hgb Conc 34.1 g/dL (32-36); Mean Corpuscular Volume 85.8 fL (81-99); Mean Platelet Vol. 9.2 fl (6.2-12.0); NRBC Flagged by Analyzer 0 % (0-5); Platelet Count 329 K/mm3 (150-450); Pregnancy, Serum, hCG Quali. NEGATIVE Negative; RBC Distribution Width CV 12.0 % (11.6-14.6); RBC Distribution Width SD 37.8 fl (35.1-43.9); Red Blood Count 4.92 M/mm3 (4.2-5.4); White Blood Count 7.3 K/mm3 (4.4-11.0)
[2025-03-13 10:20] LABS: Record Kit Lot#, Serum Preg. 980607
[2025-03-13 10:43] LABS: Squamous Epithelial Cells - UA 5-10 SEEN /hpf (5-10)
[2025-03-13 10:52] LABS: Anion Gap 9 (5-15); BUN 9 mg/dL (4-19); BUN/Creat Ratio 11.1 RATIO (10-20); Calcium,Total 9.0 mg/dL (7.6-11.0); Carbon Dioxide 25.2 mmol/L (21.0-32.0); Chloride 104 mmol/L (98-108); Estimated Creatinine Clearance 89.15 ml/min (50-250); Glucose 94 mg/dL (70-99); Potassium 3.9 mmol/L (3.3-5.1)
[2025-03-13 11:24] VITALS: BP 136/78; PULSE 64; RESP 18; O2SAT 97
[2025-03-13 12:55] VITALS: BP 134/78; PULSE 64; RESP 18; TEMP 36.6; O2SAT 99
== END 2025-03-13 12:58 | disposition home or self-care (01) ==
PROVIDERS: Emergency Provider Emergency Medicine; PCP Family Medicine; Visit Provider Emergency Medicine
DX: N13.6 Pyonephrosis (principal); F17.210 Nicotine dependence, cigarettes, uncomplicated; N20.0 Calculus of kidney; R11.0 Nausea; Z87.442 Personal history of urinary calculi; R30.0 Dysuria
CPT/HCPCS: 74177; 80048; 81001; 84703; 85025; 96374; 96375; 96376; 99283; Q9967; A4216; J2405

== ENCOUNTER 2025-03-27 06:55 | Day surgery (SDC) | payer OTHER, SELFPAY ==
--- NOTE | 2025-03-21 07:15 | EKG12_ITS ---
Test Reason : PREOP Blood Pressure : */* mmHG Vent. Rate : 70 BPM Atrial Rate : 70 BPM P-R Int : 146 ms QRS Dur : 82 ms QT Int : 382 ms P-R-T Axes : 48 46 37 degrees QTcB Int : 412 ms Normal sinus rhythm Normal ECG Confirmed by CONCETTA SUH, TYLER ([id number]), clinical editor LAURENCE DUKES ([id number]) on 03/24/2025 6:58:00 AM Referred By: Edilma Ritter Confirmed By: TYLER HYLTON MD
--- NOTE | 2025-03-21 15:52 | PAT.ANE_ITS ---
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 When Was Last Pacemaker Check QUESTION #4 FULL TEXT: You/Your Family Experience fever (hyperthermia) with Anesthesia Last Oral Intake Last Oral intake: Last Oral Intake NPO since Meds taken in AM with sips of water? Meds patient instructed to take am of surgery PONV PONV - coding technician: PONV - coding technician Female Yes 03/20/25 15:24 HX of Motion Sickness No 03/20/25 15:24 HX of N/V After Surgery No 03/20/25 15:24 Non-Smoker No 03/20/25 15:24 Duration of Surgery greater Yes 03/20/25 15:24 than 60 minutes Number of Risk Factors 2 03/20/25 15:24 PONV Score Moderate Risk 03/20/25 15:24 Height & Weight Height & Weight: Anesthesia: Height & Weight Height 5 ft 5 in 03/18/25 08:30 Respiratory Assessment Respiratory Assessment - coding technician: Respiratory Tract Infection Hx - coding technician Hx Respiratory Tract Infection No 03/20/25 15:24 STOP Sleep Apnea STOP Sleep Apnea - coding technician: STOP Sleep Apnea - coding technician Hx Hypertension No 03/20/25 15:24 Hx Sleep Apnea No 03/20/25 15:24 CPAP BIPAP Do you snore loudly (louder No 03/20/25 15:24 than talking or can be heard Do you often feel tired/ No 03/20/25 15:24 fatigued/ sleepy during daytime? Has anyone observed you stop No 03/20/25 15:24 breathing during sleep? STOP Results Negative 03/20/25 15:24 QUESTION #5 FULL TEXT : Do you snore loudly (louder than talking or can be heard through closed doors)? 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 Specify any problems Hx of Preganancy in last 3 No 03/20/25 15:24 Months Nurse Filling Out Transfusion [id number] 03/20/25 15:24 & Questions: Date: 03/20/25 03/20/25 15:24 Time: 15:03/20/25 15:24 Patient unable to answer at this time (ie. confused, unrespo /Reproduction History /Reproductive History - coding technician: /Reproductive Hx- coding technician Hx Now No 03/20/25 15:24 Gestational Age (in weeks): EDC: Hx Hx Para Hx Section SAB No 03/20/25 15:24 PFSH Medical History (Updated 03/21/25 @ 00:00 by Levi Whittaker) Wears glasses Gastric reflux Cardiology follow-up encounter Chest pain Cardiac murmur Dyspnea Chest discomfort Fatigue Kidney stones Obesity (BMI 30.0-34.9) Depression Lightheadedness Palpitations Environmental allergies Asthma Migraine Anxiety Home Medications Medication Instructions Recorded Last Taken Type albuterol sulfate 90 mcg/actuation 1 - 2 puff inhalati on Q6H PRN PRN 06/17/16 Unknown History aerosol inhaler (Ventolin HFA) Sob &/Or Wheezing famotidine 20 mg tablet (Pepcid) 20 mg PO QHS 07/23/24 Unknown History bupropion HCl 150 mg tablet,12 hr 150 mg PO BID Unknown History sustained-release fluticasone 100 mcg-salmeterol 50 1 inh inhalation MECHE LY 10/07/24 Unknown History mcg/dose blistr powdr for inhalation (Advair Diskus) ibuprofen 600 mg tablet 600 mg PO Q6H PRN PRN pain # 20 10/07/24 Unknown Rx TABLETS cephalexin 500 mg capsule 500 mg PO Q6 7 days #28 CAPS ULES 03/13/25 Unknown Rx Allergy/AdvReac Type Severity Reaction Status Date / Time amoxicillin (From Augmentin) AdvReac Mild Abd Verified 03/20/25 15:23 cramps/diarrhea clavulanic acid (From AdvReac Mild Abd Verified 03/20/25 15:23 Augmentin) cramps/diarrhea Family History Father Asthma Obesity Grandfather COPD (chronic obstructive pulmonary disease) Obesity Son Asthma Mother Obesity Surgical History (Updated 03/20/25 @ 15:31 by Nghia Alvarado) H/O uterine ablation Hx of oral surgery Social History household members: none Smoking Status: Current every day smoker tobacco type: cigarettes and e- cigarettes Electronic Cigarette Use: with nicotine alcohol intake: current alcohol intake frequency: holidays/special occasions only substance use type: does not use Audit: Pertinent Findings Pertinent Findings EKG Perinent findings: DY MONROE 44 F 1980 Allergy/Adv: amoxicillin, clavulanic acid [address] [id number] Lead EKG performed by [facility] 08/21/24 1316 MR#: [id number] Acct: [id number] Name: ABDOUL FAITH Rep #: [id number] : 1980 43 From: Nigel Quezada MD Attending Dr: Dr. Nigel Quezada MD Status: DEP AMB Ordering Dr: Nigel Quezada MD Date: 08/21/24 Location: [facility] [place] Sex: F C Admitted: [facility]/ Lead EKG performed by [facility] ECG Report Interpretation Sinus Rhythm -Poor R-wave progression -nonspecific -consider old anterior infarct. BORDERLINEElectronically signed on 08/22/2024 at 07:39 by Nigel Quezada [employer] Version [id number] 08/22/24 0746 Date Nigel Quezada MD CC: ~ Date Dictated: 08/21/241315 Date Transcribed: 08/21/241315 Oral Therapist: [place] Signed Consult pertinent findings: [facility] [address] [place] [address] OFFICE VISIT Date of Service: 08/21/24 MR#: [id number] Acct: [id number] Name: ABDOUL FAITH Rep #: [id number] : 1980 Provider: Dr. Nigel Quezada MD Age/Sex: 43/F Location: [facility] Status: Signed HPI HPI History of Present Illness Details: Pleasant 43-year-old lady who presents for evaluation of her chest pain. She says that she has been having this for a few months but unfortunately she did lose her insurance so she was not able to follow-up with her testing. She had complained of palpitations, chest discomfort, extreme fatigue and dyspnea. This had been going on for many months the chest discomfort would sometimes go into her jaw they occur at rest or with exertion and is a pressure sensation she had been extremely fatigued with daytime somnolence as well. She does run a busy life and she was scheduled to have an echocardiogram and stress test and an event monitor but she was not able to complete the above. She has also wondered whether some of these are due to perimenopausal symptoms. Her symptoms have improved somewhat but have not completely abated. Her EKG in February 2024 demonstrated sinus rhythm with no acute changes and her blood work was unremarkable from February 2024 with a negative troponin and normal electrolytes. Her physical exam here today is unremarkable her electrocardiogram demonstrates sinus rhythm with a rate of 63 bpm. Intake Vital Signs 02/10/24 00:15 08/21/24 13:16 Height 5 ft 5 in 5 ft 5 in Weight: 187 lb BMI 31.1 BP 121/81 H Blood Pressure Location Lt brachial Position Sitting Respiration 16 Pulse 63 Pulse Source Monitor Intake Visit Reasons: EST/CP (SELF) Pharmacy Sales Representative Required: No Accompanied by: Self Is patient in pain?: No Allergies amoxicillin (From Augmentin) Adverse Reaction (Mild, Verified 08/21/24 13:21) Abd cramps/diarrhea clavulanic acid (From Augmentin) Adverse Reaction (Mild, Verified 08/21/24 13:21) Abd cramps/diarrhea Medications Medication Instructions Recorded Confirmed Type albuterol sulfate 90 mcg/actuation 1 - 2 puff inhalation Q6H PRN PRN 06/17/16 07/23/24 History aerosol inhaler (Ventolin HFA)Sob &/Or Wheezing famotidine 20 mg tablet (Pepcid) 20 mg PO QHS 07/23/24 07/23/24 History bupropion HCl 150 mg tablet,12 hr 150 mg PO BID 08/21/24 08/21/24 History sustained-release PFSH Medical History Cardiac murmur Dyspnea Chest discomfort Fatigue Kidney stones Obesity (BMI 30.0-34.9) Depression Lightheadedness Palpitations Environmental allergies Asthma Migraine Anxiety Surgical History Hx of oral surgery Family History Father Asthma Obesity Grandfather COPD (chronic obstructive pulmonary disease) Obesity Son Asthma Mother Obesity Social History household members: none Smoking Status: Former smoker Electronic Cigarette Use: with nicotine alcohol intake: current alcohol intake frequency: holidays/special occasions only substance use type: does not use ROS Const Const: Positive for fatigue, headache(s) and daytime sleepiness; Negative for weakness or difficulty sleeping ENT ENT: Positive for headache(s) and dizziness; Negative for Nosebleed/epistaxis Cardio Chest Pain: Yes Frequency: other ("comes and goes") Character: sharp and other ("burning/achy") Location: mid sternal and left chest Duration: minutes Palpitations: No Edema: Bilateral (BLE trace at times ) Additional Details: Pain into left arm/shoulder/down left arm and left facial numbness Resp Respiratory: Negative for SOB with activity, SOB at rest, SOB orthopnea\\SOB lying down or Cough GI GI: Positive for heartburn; Negative nausea or vomiting Neuro Neuro: Positive for dizziness, lightheadedness, near syncope and headache(s); Negative for weakness Endo Endo: Positive for fatigue Cardiology Exam Const Appearance: cooperative, healthy appearing, no acute distress, well developed and well groomed Nutritional Appearance: average body habitus and well nourished Orientation: alert, awake and oriented x3 Head Head: normal to inspection, normocephalic and atraumatic Ears: hearing grossly normal bilaterally and external ears normal Nose: external nose normal, nares normal, nasal mucous membranes and turbinates normal, septum normal and no nasal discharge Face and Sinus: face symmetric Mouth: oral mucosae normal, tongue normal, oropharynx normal and moist mucous membranes Teeth and gingiva: dentition normal Throat: posterior oropharynx normal, tonsils normal and uvula midline Eyes General: appearance normal, both eyes and all related structures Eyelids: eyelids normal Conjunctivae: conjunctivae normal Pupils: PERRL, normal by confrontation and accommodation normal EOM: EOM intact bilaterally Neck Neck: normal visual inspection, trachea midline and no JVD JVD: +5 Carotids: normal carotid upstroke and bounding pulses Chest Chest inspection: normal inspection of the chest, symmetric chest movement and normal respiratory effort Auscultation: Bilateral: Clear to Auscultation Cardio Palpation: normal PMI Rate: regular rate Rhythm: regular rhythm Heart sounds: S1 normal, S2 normal and normal, physiologic split S2; Negative rub, gallop or murmur GI GI: normal to inspection, soft, no hepatosplenomegaly and bowel sounds present Neuro General: patient alert, patient awake, patient oriented x3, gait normal, moves all extremities and no focal sensory deficit Skin Skin: no rashes or lesions noted Extremities Pulses: Normal: Right Femoral Pulse, Left Femoral Pulse, Right Dorsalis Pedis Pulse, Left Dorsalis Pedis Pulse, Right Posterior Tibial Pulse, Left Posterior Tibial Pulse, Right Radial Pulse and Left Radial Pulse Lower Extremity Edema: None: Bilateral Musculoskel Musculoskeletal: No joint tenderness Psych Psychological: normal affect Supplemental Info Supplemental Information Labs: No Data to Display Diagnostics: Electrocardiogram Chest X-Ray Abdomen/Pelvis CT Pulmonary: No Data to Display Past Visits: Cardiology Visit 08/21/24 Assessment and Plan Assessment and Plan (1) Chest discomfort: Status: Acute Plan: She does present with chest discomfort which appears to be rather atypical and probably noncardiac. My recommendation at this time would be for us to obtain a stress echocardiogram for risk stratification. Depending on the findings further recommendations will be made. At this time I suspect that a lot of her issues are probably related to anxiety. Orders: Orders 12 Lead EKG performed by [facility] Today R00.2 - Palpitations, R01.1 - Cardiac murmur, unspecified, R07.89 - Other chest pain Stress Test Echo w/o ContrastToday R07.89 - Other chest pain Plan Details Follow Up: prn Coding Level of Care Code Off vis,new,level 4 Diagnoses Chest discomfort R07.89 Coding Level of Care Code Off vis,new,level 4 Diagnoses Chest discomfort R07.89 08/21/24 1358 <Electronically signed by Nigel Quezada MD> Date Nigel Quezada MD Cosigner Signature: Date (if applicable) CC: ~ Recommendation Anesthesia Recommendation Anesthesia recommendation: OPTIMIZED for anesthesia
[2025-03-27] VITALS (10 sets, daily range): BP systolic 123–148; BP diastolic 94–103; PULSE 58–89; RESP 14–16; TEMP 36.5–37.2; O2SAT 98–100; BMI 29.0
--- OUTSIDE RECORDS SUMMARY | 2025-03-27 07:00 | XMS RPT_ITS | CCD ---
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 [Encounter for screening mammogram for malignant neoplasm of breast] Episodic Other upper respiratory disease (20 sources) Allergic rhinitis due to pollen; Translations: [Allergic rhinitis due to pollen] Onset: 01-23-2018 Chronic Other upper respiratory disease (1 source) Hoarse; Translations: [Dysphonia] 05-20-2023 Episodic Other upper respiratory infections (1 source) Acute sinusitis; Translations: [Acute sinusitis, unspecified] 05-20-2023 Episodic Residual codes; unclassified (1 source) Daytime somnolence; Translations: [Other hypersomnia] 12-14-2023 Chronic Residual codes; unclassified (1 source) Other hypersomnia; Translations: [Daytime hypersomnolence] Onset: Chronic Sprains and strains (1 source) Strain of thoracic region; Translations: [Strain of muscle and tendon of back wall of thorax, initial encounter] 10-15-2024 Episodic Urinary tract infections (4 sources) Recurrent urinary tract infection; Translations: [Urinary tract infection, site not specified] Onset: Episodic Past or Other Problems Problem Classification Problem Date Documented Da te Episodic/Chronic Administrative/social admission (1 source) Encounter for pre-employment examination; Translations: [Encounter for pre-employment examination] Onset: 08-22-2024 Episodic Cardiac dysrhythmias (7 sources) Palpitations; Translations: [Palpitations] Onset: 12-14-2023 08-22-2023 Episodic Heart valve disorders (5 sources) Mitral valve prolapse syndrome; Translations: [Cardiac murmur, unspecified] Onset: 12-14-2023 08-22-2023 Episodic Nonspecific chest pain (9 sources) Atypical chest pain; Translations: [Other chest pain] Onset: 12-14-2023 Episodic Spondylosis; intervertebral disc disorders; other back problems (2 sources) Neck pain; Translations: [Cervicalgia] Onset: 11-28-2024 08-22-2023 Episodic Results Test Name Value Interpretation Reference Range Facility 12 Lead EKGon 03-21-[address] [facility] [address] [place] [address] 12 Lead EKG 03/21/25 0725 MR#: [id number] Acct: [id number] Name: ABDOUL FAITH Rep #: [id number] : 1980 44 From: Nigel Quezada MD Attending Dr: Dr. Edilma Ritter MD Status: PRE SDC Ordering Dr: Zhao Jimenez MD Date: 03/21/25 Location: [facility] [place] Sex: F C Admitted: Test Reason : PREOP Blood Pressure : */* mmHG Vent. Rate : 70 BPM Atrial Rate : 70 BPM P-R Int : 146 ms QRS Dur : 82 ms QT Int : 382 ms P-R-T Axes : 48 46 37 degrees QTcB Int : 412 ms Normal sinus rhythm Normal ECG Confirmed by CONCETTA SUH, NIGEL ([id number]), fan mail editor LAURENCE DUKES ([id number]) on 03/24/2025 6:58:00 AM Referred By: Edilma Ritter Confirmed By: NIGEL QUEZADA MD 03/24/25 0658 Date Nigel Quezada MD CC: Dr. Zhao Jimenez MD; Dr. Edilma Ritter MD; Dr. Rj Canales MD Signed [facility] MR/PAT.Conor 03-21-2025 MR/PAT.[facility] Medical Records Department [address] [place] [address] PAT - Anesthesia 03/21/25 1552 MR#: [id number] Acct: [id number] Name: ABDOUL FAITH MONROE Rep #: [id number] : 1980 44 From: Miguel Sahu MD PCP: Dr. Rj Canales MD Status:PRE SDC Y Race: C Location: [facility] [place] Pre-Assessment Diagnosis/Proposed Procedure Planned Operative Procedure(s): CYSTOSCOPY, Anesthesia History Anesthesia History - rn cardiac: Anesthesia History - rn cardiac Hx Hospitalization No 03/20/25 15:24 Any Problems With Anesthesia No 03/20/25 15:24 Cholinesterase deficiency No 03/20/25 15:24 You/Your Family Experience No 03/20/25 15:24 fever (hyperthermia) with Relationship Recent Exposure to Contagious Disease Does patient have nerve No 03/20/25 15:24 stimulator Patient instructed to have device shut off --Does patient have Pacemaker or ICD? When Was Last Pacemaker Check QUESTION #4 FULL TEXT: You/Your Family Experience fever (hyperthermia) with Anesthesia Last Oral Intake Last Oral intake: Last Oral Intake NPO since Meds taken in AM with sips of water? Meds patient instructed to take am of surgery PONV PONV - rn cardiac: PONV - rn cardiac Female Yes 03/20/25 15:24 HX of Motion Sickness No 03/20/25 15:24 HX of N/V After Surgery No 03/20/25 15:24 Non-Smoker No 03/20/25 15:24 Duration of Surgery greater Yes 03/20/25 15:24 than 60 minutes Number of Risk Factors 2 03/20/25 15:24 PONV Score Moderate Risk 03/20/25 15:24 Height Weight Height Weight: Anesthesia: Height Weight Height 5 ft 5 in 03/18/25 08:30 Respiratory Assessment Respiratory Assessment - rn cardiac: Respiratory Tract Infection Hx - rn cardiac Hx Respiratory Tract Infection No 03/20/25 15:24 STOP Sleep Apnea STOP Sleep Apnea - rn cardiac: STOP Sleep Apnea - rn cardiac Hx Hypertension No 03/20/25 15:24 Hx Sleep Apnea No 03/20/25 15:24 CPAP BIPAP Do you snore loudly (louder No 03/20/25 15:24 than talking or can be heard Do you often feel tired/ No 03/20/25 15:24 fatigued/ sleepy during daytime? Has anyone observed you stop No 03/20/25 15:24 breathing during sleep? STOP Results Negative 03/20/25 15:24 QUESTION #5 FULL TEXT : Do you snore loudly (louder than talking or can be heard through closed doors)? 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 Specify any problems Hx of Preganancy in last 3 No 03/20/25 15:24 Months Nurse Filling Out Transfusion [email or web address] 03/20/25 15:24 Questions: Date: 03/20/25 03/20/25 15:24 Time: 03/20/25 15:24 Patient unable to answer at this time (ie. confused, unrespo /Reproductio n History /Reproductiv e History - rn cardiac: /Reproductiv e Hx- rn cardiac Hx Now No 03/20/25 15:24 Gestational Age (in weeks): EDC: Hx Hx Para Hx Section SAB No 03/20/25 15:24 PFSH Medical History (Updated 03/21/25 @ 00:00 by Background Dajeannieon) Wears glasses Gastric reflux Cardiology follow-up encounter Chest pain Cardiac murmur Dyspnea Chest discomfort Fatigue Kidney stones Obesity (BMI 30.0-34.9) Depression Lightheadedness Palpitations Environmental allergies Asthma Migraine Anxiety Home Medications ???Medication ???Instructions ???Recorded ???Last Taken ???Type albuterol sulfate 90 mcg/actuation 1 - 2 puff inhalation Q6H PRN WY N 06/17/16 Unknown History aerosol inhaler (Ventolin HFA) Sob /Or Wheezing famotidine 20 mg tablet (Pepcid) 20 mg PO QHS 07/23/24 Unknown Hist ory bupropion HCl 150 mg tablet,12 hr 150 mg PO BID 08/21/24 Unknown Hi story sustained-release fluticasone 100 mcg-salmeterol 50 1 inh inhalation DAILY 10/07/24 U nknown History mcg/dose blistr powdr for inhalation (Advair Diskus) ibuprofen 600 mg tablet 600 mg PO Q6H PRN PRN pain #20 10/27 Unknown Rx TABLETS c (more content not included)... Normal [facility] CNPNon 03-20-2025 SIDNEYN Telephone (FPWADS) ABDOUL FAITH ([id number]) 1980 F Date Time Provider Department 03/20/25 ILA CANALES FPYE During your visit today, we recorded the following information about you: Karlene Lanza LPN 03/20/2025 9:56 AM Signed Received visit summary from [facility]. Placed in provider's inbox for review. Route to [facility] scanning Allergies As of Date: 03/20/2025 Noted Allergy Reaction AUGMENTIN (AMOXICILLIN-POT CLAVUL*07/01/2021 6 - Diarrhea SEASONAL ALLERGIES 11/13/2007 5 - Intolerance Date Reviewed: 03/12/2025 Reviewed by: Pao Ponce LPN - Fully Assessed Reason for Visit: Received Outside Medical Records [[id number]] Cmt: [facility] Prescriptions as of 03/20/2025 - albuterol HFA (PROVENTIL HFA) 90 mcg/actuation inhaler Inhale 1-2 puffs as instructed four times a day as needed for wheezing/shortness of breath. - buPROPion SR (WELLBUTRIN SR) 150 mg 12 hr tablet Take 1 tablet by mouth two times a day. - fluticasone-salmetero l (ADVAIR DISKUS) 100-50 mcg/dose inhaler Inhale 1 puff as instructed two times a day. - famotidine (PEPCID) 20 mg tablet Take 1 tablet by mouth at bedtime as needed. Problem List As Of Date 03/20/2025 Noted Resolved Mild persistent asthma without complication [J4*01/23/2018 Seasonal allergic rhinitis due to pollen [J30.1]01/23/2018 Migraine with aura and without status migrainos*12/21/2023 Gastroesophageal reflux disease [K21.9] 12/21/2023 Vitamin D deficiency [E55.9] 12/21/2023 Class 1 obesity with body mass index (BMI) of 3*12/21/2023 Elevated LDL cholesterol level [E78.00] 12/21/2023 Encounter Status:Closed by KARLENE LANZA on 03/20/25 Normal [facility] MR/Malvin 03-18-2025 MR/KRYSTIAN [facility] [address], [address] [place] [address] OFFICE VISIT Date of Service: 03/18/25 MR#: [id number] Acct: [id number] Name: ABDOUL FAITH Rep #: [id number] : 1980 Provider: Dr. Edilma Andino i, MD Age/Sex: 44/F [place] [facility] [place] Status: Signed Intake Vital Signs 03/13/25 09:25 03/18/25 08:30 Height 5 ft 5 in 5 ft 5 in Weight: 174 lb BMI 28.9 BP 114/89 H Pulse 99 Intake Visit Reasons: ER F/U Stones Chief Complaint: ER follow up for 6mm kidney stone Vendor Representatives Required: No Accompanied by: self Is patient in pain?: Yes (aching kidney stone pain ) Pain scale (1-10): 7 Allergies amoxicillin (From Augmentin) Adverse Reaction (Mild, Verified 03/13/25 09:24) Abd cramps/diarrhea clavulanic acid (From Augmentin) Adverse Reaction (Mild, Verified 03/13/25 09:24) Abd cramps/diarrhea Medications ???Medication ???Instructions ???Recorded ???Confirmed ???Type albuterol sulfate 90 mcg/actuation 1 - 2 puff inhalation Q6H PRN WY N 06/17/16 03/18/25 History aerosol inhaler (Ventolin HFA) Sob /Or Wheezing famotidine 20 mg tablet (Pepcid) 20 mg PO QHS 07/23/24 03/18/25 His tory bupropion HCl 150 mg tablet,12 hr 150 mg PO BID 08/21/24 03/18/25 H istory sustained-release fluticasone 100 mcg-salmeterol 50 1 inh inhalation DAILY 10/07/24 1 History mcg/dose blistr powdr for inhalation (Advair Diskus) ibuprofen 600 mg tablet 600 mg PO Q6H PRN PRN pain #20 10/27 Rx TABLETS cephalexin 500 mg capsule 500 mg PO Q6 7 days #28 CAPSULES 1 03/18/25 Rx fluconazole 200 mg tablet 200 mg PO DAILY #1 TAB 03/13/25 Rx acetaminophen 325 mg tablet 325 mg PO ONCE PRN 03/18/25 History (Tylenol) Nurse's Note: 6mm kidney stone plus infection dx at the ER. On cephlexin 500mg every 6 hrs. Blader scan PVR 30cc PFSH Medical History Cardiac murmur Dyspnea Chest discomfort Fatigue Kidney stones Obesity (BMI 30.0-34.9) Depression Lightheadedness Palpitations Environmental allergies Asthma Migraine Anxiety Surgical History H/O uterine ablation Hx of oral surgery Family History Father Asthma Obesity Grandfather COPD (chronic obstructive pulmonary disease) Obesity Son Asthma Mother Obesity Social History household members: none Smoking Status: Current every day smoker tobacco type: cigarettes and e-cigarettes Electronic Cigarette Use: with nicotine alcohol intake: current alcohol intake frequency: holidays/special occasions only substance use type: does not use HPI HPI Urology Chief Complaint: ER follow up for 6mm kidney stone Details: ABDOUL FAITH, is a 44 F. She is here for evaluation and management of ureteral stone. She is voiding about 5-7 times during the day, 0 times at night. There is no urge incontinence where she cannot make it to the bathroom. There is stress incontinence with cough, laugh, sneeze, lifting, etc. She is using one liner pad in 24 hours. She has had 2-3 urinary tract infections in the last year. She also has frequent bacterial vaginitis. She usually uses metronidazole. She has not had visible blood in her urine. She is sexually active. There is sometimes pain with intercourse. There is no sensation of vaginal bulging. She has the following issues with chronic bowel function: none. She has a history of smoking. She vapes now. There is no history of blood clots or easy bleeding. There is not a family history of female cancer. Results POC Urinalysis w/Micro Office Urine Color Last Edit by Jeannie Suggs on 03/18/25 08:34 Office Urine Clarity Last Edit by Jeannie Suggs on 03/18/25 08:34 Office Urine Glucose Negative Last Edit by Jeannie Suggs on 03/18/25 08:34 Office Urine Ketones Negative Last Edit by Jeannie Suggs on 03/18/25 08:34 Office Urine Bilirubin Negative Last Edit by Jeannie Suggs on 03/18/25 08:34 Office Urine Urobilinogen 0.2 mg/dL Last Edit by Jeannie Suggs on 03/18/25 08:34 Off Ur Spec [place] 1.015 Last Edit by Jeannie Suggs on 03/18/25 08:34 Office Urine pH 6 Last Edit by Jeannie Suggs on 03/18/25 08:34 Office Urine Protein Trace Last Edit by Jeannie Suggs on 03/18/25 08:34 Office Urine Blood Moderate Last Edit by Jeannie Suggs on 03/18/25 08:34 Office Urine Blood Hemolyzed Negative Last Edit by Jeannie Suggs on 03/18/25 08:34 Office Urine Nitrate Negative Last Edit by Jeannie Suggs on 03/18/25 08:34 Off Ur Leukocytes Positive Last Edit by Jeannie Suggs on 03/18/25 08:34 Off Ur WBC Microscopic Last Edit by (more content not included)... [facility] 03-17-2025 [facility] Telephone (DataPop) ABDOUL FAITH ([id number]) 1980 F Date Time Provider Department 03/17/25 ILA CANALES During your visit today, we recorded the following information about you: Michelle Brown LPN 03/17/2025 3:35 PM Signed Received 03/15/2025 from [facility]. Placed in provider's inbox for review. [facility] Allergies As of Date: 03/17/2025 Noted Allergy Reaction AUGMENTIN (AMOXICILLIN-POT CLAVUL*07/01/2021 6 - Diarrhea SEASONAL ALLERGIES 11/13/2007 5 - Intolerance Date Reviewed: 03/12/2025 Reviewed by: Pao Ponce LPN - Fully Assessed Reason for Visit: Received Outside Medical Records [[id number]] Cmt: [facility] ER visit summary 03/13/2025 abdominal pain Prescriptions as of 03/17/2025 - nitrofurantoin monohydrate and macrocrystal (MACROBID) 100 mg capsule Take 1 capsule by mouth two times a day for 5 days. - albuterol HFA (PROVENTIL HFA) 90 mcg/actuation inhaler Inhale 1-2 puffs as instructed four times a day as needed for wheezing/shortness of breath. - buPROPion SR (WELLBUTRIN SR) 150 mg 12 hr tablet Take 1 tablet by mouth two times a day. - fluticasone-salmetero l (ADVAIR DISKUS) 100-50 mcg/dose inhaler Inhale 1 puff as instructed two times a day. - famotidine (PEPCID) 20 mg tablet Take 1 tablet by mouth at bedtime as needed. Problem List As Of Date 03/17/2025 Noted Resolved Mild persistent asthma without complication [J4*01/23/2018 Seasonal allergic rhinitis due to pollen [J30.1]01/23/2018 Migraine with aura and without status migrainos*12/21/2023 Gastroesophageal reflux disease [K21.9] 12/21/2023 Vitamin D deficiency [E55.9] 12/21/2023 Class 1 obesity with body mass index (BMI) of 3*12/21/2023 Elevated LDL cholesterol level [E78.00] 12/21/2023 Encounter Status:Closed by MICHELLE BROWN on 03/17/25 Normal [facility] Abdomen/Pelvis W IV Cont ONL Yon 03-13-2025 Abdomen/Pelvis W IV Cont ONLY [facility] Imaging Services [address] [place], [place] [id number] Abdomen/Pelvis W IV Cont ONLY MR#: [id number] Acct: [id number] Name: ABDOUL FAITH Rep #: [id number] : 1980 F 44 From: Panfilo Su MD PCP: Dr. Rj Canales MD Status: REG ER Study: Abdomen/Pelvis W IV Cont ONLY Date of Exam: Exam# [id number] Ordering Dr: Derek Sanchez MD PROCEDURE: ABDOMEN/PELVIS W IV CONT ONLY 03/13/2025 REASON FOR EXAM: LLQ ABD PAIN TECHNIQUE: Procedure Code: CTABDPELIV Modality: CT Procedure: ABDOMEN/PELVIS W IV CONT ONLY Coronal and Sagittal reconstruction series were provided. CONTRAST: Isovue 300 VOLUME: 98 mL One or more dose reduction techniques were used (e.g., Automated exposure control, adjustment of the mA and/or kV according to patient size, use of iterative reconstruction technique. RADIATION DOSE SUMMARY: CTDlvol: 27 mGy DLP: 863 mGycm COMPARISON: None FINDINGS: Lung bases: Clear Liver: Normal Gallbladder: Nitrogen containing stones are seen within the gallbladder lumen. No wall thickening or pericholecystic fluid. No biliary ductal dilation. Spleen: Normal Pancreas: Normal Adrenals: Normal Kidneys: 3 mm calculus anterior right lower pole is nonobstructing. Mild hydronephrosis and hydroureter related to a calculus that is in the distal ureter located a few cm proximal to the ureterovesical junction. The calculus is 6 mm in size. Bladder: Normal Reproductive Organs: Uterus is anteverted. Essure type devices are present. Ovaries are normal. Bowel: Stomach, small bowel and colon appear normal. Appendix: Normal Lymph nodes: None appear enlarged Vasculature: Mild atherosclerotic plaque without aneurysm. Peritoneum / Retroperitoneum: No free air, free fluid or mass. Bones: Disc space narrowing, marginal endplate spurring and vacuum disc phenomenon L4/5. Mild disc space narrowing L5/S1. CT/Abdomen/Pelvis W IV Cont ONLY IMPRESSION: Mild hydronephrosis and hydroureter related to a 6 mm calculus in the distal ureter on the left side just proximal to the ureterovesical junction. Nonobstructing calculus right kidney. Normal appendix Cholelithiasis Reading Location: [id number] CC: Dr. Derek Sanchez MD; Dr. 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 Normal [facility] Absolute lymphocyte countOrd ered By: Derek Sanchez on 03-13-2025 Lymphocytes Auto (Unsp spec) [#/Vol] 1.27 10*3/uL 0.83-4.51 [facility] Absolute neutrophil countOrd ered By: Derek Sanchez on 03-13-2025 Neutrophils (Bld) [#/Vol] 5.2 10*3/uL 2.0-7.7 [facility] Anion gap in Serum or Plasma Ordered By: Derek Sanchez on 03-13-2025 Anion gap [Moles/Vol] 9 mmol/L 5-15 [facility] Automated blood erythrocyte countOrdered By: Derek Sanchez on 03-13-2025 RBC (Bld) [#/Vol] 4.92 10*6/uL Normal 4.2-5.4 [facility] Comment on above: Performed By: #### L 700.6800, L500.2500, L100.0100 #### [facility] [address] [place], [address] Automated blood hematocrit ( percentage)Ordered By: Derek Sanchez on 03-13-2025 Hematocrit (Bld) [Volume fraction] 42.2 % Normal 37-47 [facility] Comment on above: Performed By: #### L 700.6800, L500.2500, L100.0100 #### [facility] [address] [place], [address] Automated lymphocyte count a s percentage of total leukocytesOrdered By: Derek Sanchez on 03-13-2025 Lymphocytes/100 WBC Auto (Unsp spec) 17.5 % Low 19-41 [facility] BUN/creatinine ratioOrdered By: Derek Sanchez on 03-13-2025 Urea nitrogen/Creatinine [Mass ratio] 11.1 mg/mg 10-20 [facility] Basic Metabolic Profile (BMP )on 03-13-2025 BUN/CRE 11.1 RATIO Normal 10-20 [facility] Comment on above: Performed By: #### L 700.6800, L500.2500, L100.0100 ####[facility] [address] [place], [address] ECRCL 89.15 ml/min Normal 50-250 [facility] Comment on above: Performed By: #### L 700.6800, L500.2500, L100.0100 ####[facility] [address] [place], [address] GAP 9 Normal 5-15 [facility] Comment on above: Performed By: #### L 700.6800, L500.2500, L100.0100 ####[facility] [address] [place], [address] Potassium [Moles/Vol] 3.9 mmol/L Normal 3.3-5.1 [facility] Comment on above: Performed By: #### L 700.6800, L500.2500, L100.0100 ####[facility] [address] [place], [address] Basophil percentageOrdered B y: Derek Sanchez on 03-13-2025 Basophils/100 WBC (Bld) 0.4 % Normal 0-1 [facility] Comment on above: Performed By: #### L 700.6800, L500.2500, L100.0100 #### [facility] [address] [place], [address] Bilirubin Test strip Ql (U)O rdered By: Derek Sanchez on 03-13-2025 Bilirubin Ql (U) 1 mg/dL High Negative [facility] Comment on above: COLOR OF URINE MAY A FFECT DIPSTICK RESULTS. CBC W/Diff, Automatedon 10-0 Absolute Lymph 1.27 X10 3/uL Normal 0.83-4.51 [facility] Comment on above: Performed By: #### L 700.6800, L500.2500, L100.0100 #### [facility] [address] [place], [address] Absolute Neut 5.2 X10 3/uL Normal 2.0-7.7 [facility] Comment on above: Performed By: #### L 700.6800, L500.2500, L100.0100 #### [facility] [address] [place], [address] IG% 0.400 Normal 0.0-0.9 [facility] Comment on above: Result Comment: IG% - Immature Granulocytes (promyelocytes, myelocytes and metamyelocytes) > 1% indicates that a LEFT SHIFT is Present. Performed By: #### L 700.6800, L500.2500, L100.0100 #### [facility] [address] [place], [address] Lymphocytes/100 WBC (Bld) 17.5 % Low 19-41 [facility] Comment on above: Performed By: #### L 700.6800, L500.2500, L100.0100 #### [facility] [address] [place], [address] Nucleated RBC (Bld) [#/Vol] 0 10*3/uL Normal 0-5 [facility] Comment on above: Performed By: #### L 700.6800, L500.2500, L100.0100 #### [facility] [address] [place], [address] RDW SD 37.8 fl Normal 35.1-43.9 [facility] Comment on above: Performed By: #### L 700.6800, L500.2500, L100.0100 #### [facility] [address] [place], [address] Carbon dioxide, total [Moles /volume] in Central venous bloodOrdered By: Derek Sanchez on 03-13-2025 CO2 [Moles/Vol] 25.2 mmol/L Normal 21.0-32.0 [facility] Comment on above: Performed By: #### L 700.6800, L500.2500, L100.0100 ####[facility] [address] [place], [address] Chloride assayOrdered By: Remigio Sanchez on 03-13-2025 Chloride [Moles/Vol] 104 mmol/L Normal 98-108 [facility] Comment on above: Performed By: #### L 700.6800, L500.2500, L100.0100 ####[facility] [address] [place], [address] Emergency Department Summary on 03-13-[address] [facility] Medical Records Department [address] [place] [address] Emergency Department Summary 03/13/25 MR#: [id number] Acct: [id number] Name: ABDOUL FAITH Rep #: [id number] : 1980 44 From: Derek Sanchez MD PCP: Dr. Rj Canales MD Status:DEP ER Location: ED HPI HPI - GI History of Present Illness Chief Complaint: Abd Pain Informant: patient Abdominal Pain/Flank Pain Onset: Days Context: Gradual Onset Timing: Continuous Quality: Aching Location: LUQ Current Severity: Moderate Maximum Severity: Moderate Worsened by: Nothing Relieved by: Nothing Nausea/Vomiting/Emesi s GI Symptom: Positive for Nausea; Negative for Vomiting Severity: Mild Diarrhea/Melena/Hemat ochezia GI Symptom: Negative for Diarrhea, Melena or Hematochezia Associated Symptoms Associated Symptoms: Positive for Dysuria; Negative for Hematuria or Urgency Narrative Narrative: Patient is a 44-year-old female presenting with lower abdominal pain and dysuria for 4 days. - Reports onset of cramping lower abdominal pain 4 days ago, described as intermittent sharp lightning bolt pain. - Initially suspected a UTI, given her history of recurrent UTIs, and took unspecified medication for it without relief. - Associated symptoms include urinary pressure and cloudy urine. - Denies fever, chills, emesis, diarrhea, or constipation. - Pain is constant, with no identified alleviating or exacerbating factors; has tried Tylenol, ibuprofen, and an unspecified medication for UTI without relief. - Denies any previous diagnosis of diverticulitis. - No history of abdominal surgeries; has had an ablation and tubal blockage in the past. - No recent hospital admissions. Prior similar symptoms: Yes Recent Illness/Hospitalizati on: No PFSH PFSH Medical History Cardiac murmur Dyspnea Chest discomfort Fatigue Kidney stones Obesity (BMI 30.0-34.9) Depression Lightheadedness Palpitations Environmental allergies Asthma Migraine Anxiety Home Medications ???Medication ???Instructions ???Recorded ???Last Taken ???Type albuterol sulfate 90 mcg/actuation 1 - 2 puff inhalation Q6H PRN [place] N 06/17/16 Unknown History aerosol inhaler (Ventolin HFA) Sob /Or Wheezing famotidine 20 mg tablet (Pepcid) 20 mg PO QHS 07/23/24 Unknown Hist ory bupropion HCl 150 mg tablet,12 hr 150 mg PO BID 08/21/24 Unknown Hi story sustained-release diazepam 5 mg tablet 5 mg PO Q8 PRN Muscle Spasm #20 Unknown Rx tabs fluticasone 100 mcg-salmeterol 50 1 inh inhalation DAILY 10/07/24 U nknown History mcg/dose blistr powdr for inhalation (Advair Diskus) ibuprofen 600 mg tablet 600 mg PO Q6H PRN PRN pain #20 10/27 Unknown Rx TABLETS cephalexin 500 mg capsule 500 mg PO Q6 7 days #28 CAPSULES 1 Unknown Rx fluconazole 200 mg tablet 200 mg PO DAILY #1 TAB 03/13/25 Un known Rx tamsulosin 0.4 mg capsule (Flomax) 0.4 mg PO DAILY 3 days #3 caps 1 Unknown Rx Allergy/AdvReac Type Severity Reaction Status Date / Time amoxicillin (From Augmentin) AdvReac Mild Abd Verified 03/13/25 09:24 cramps/diarrhea clavulanic acid (From AdvReac Mild Abd Verified 03/13/25 09:24 Augmentin) cramps/diarrhea Family History Father Asthma Obesity Grandfather COPD (chronic obstructive pulmonary disease) Obesity Son Asthma Mother Obesity Surgical History Hx of oral surgery Social History household members: none Smoking Status: Current every day smoker tobacco type: cigarettes and e-cigarettes Electronic Cigarette Use: with nicotine alcohol intake: current alcohol intake frequency: holidays/special occasions only substance use type: does not use ROS ROS ED ROS Narrative Left lower quadrant abdominal pain. Nausea. No vomiting. No diarrhea or fever. No constipation. No fever or chills. Positive dysuria. Constitutional Constitutional ED: Denies chills or fever(s) ENT ENT ED: Denies ear pain Cardiovascular Cardiovascular: Denies chest pain Respiratory/Chest Respiratory/Chest: Denies cough Gastrointestinal Gastrointestinal: Reports abdominal pain and nausea; Denies constipation, diarrhea, melena or vomiting Genitourinary Genitourinary ED: Reports dysuria Musculoskeletal Musculoskeletal: Denies arthralgias or back pain Integumentary Denies abscess Neurologic Neurologic: Denies headache(s) Psychiatric Psychiatric: Denies anxiety Endocrine Endocrinology: Denies polydipsia Hematologic/Lymphatic Hematologic/Lymphatic : Denies easy bleeding or easy bruising Allergic/Immunologic Allergic/Immunologic E (more content not included)... Normal [facility] Eosinophil percentageOrdered By: Derek Sanchez on 03-13-2025 Eosinophils/100 WBC (Bld) 4.0 % Normal 0-5 [facility] Comment on above: Performed By: #### L 700.6800, L500.2500, L100.0100 #### [facility] [address] [place], [address] Erythrocyte distribution wid th ratioOrdered By: Derek Sanchez on 03-13-2025 Erythrocyte distribution width (RBC) [Ratio] 12.0 % Normal 11.6-14.6 [facility] Comment on above: Performed By: #### L 700.6800, L500.2500, L100.0100 #### [facility] [address] [place], [address] Erythrocyte distribution wid th standard deviationOrdered By: Derek Sanchez on 03-13-2025 Erythrocyte distribution width (RBC) [Ratio] 37.8 fl 35.1-43.9 [facility] Glomerular filtration rate ( GFR) estimation/1.73 sq m using serum, plasma, or whole bOrdered By: Derek Sanchez on 03-13-2025 GFR/1.73 sq M.predicted among non-blacks MDRD (S/P/Bld) [Vol rate/Area] 87 mL/min/{1.73_m2} Normal >60 [facility] Comment on above: mL/min/1.73m2 CKD-EP I Creatinine Equation (2020) Result Comment: mL/m in/1.73m2 CKD-EPI Creatinine Equation (2020) Performed By: #### L 700.6800, L500.2500, L100.0100 ####[facility] [address] [place], [place], [id number] Hemoglobin measurementOrdere d By: Derek Sanchez on 03-13-2025 Hemoglobin (Bld) [Mass/Vol] 14.4 g/dL Normal 12.0-15.0 [facility] Comment on above: Performed By: #### L 700.6800, L500.2500, L100.0100 #### [facility] [address] [place], [place], [address] Immature granulocytes/100 WB C Auto (Bld)Ordered By: Derek Sanchez on 03-13-2025 Immature granulocytes/100 WBC (Bld) 0.400 % 0.0-0.9 [facility] Comment on above: IG% - Immature Granu locytes (promyelocytes, myelocytes and metamyelocytes) > 1% indicates that a LEFT SHIFT is Present. Ketones Test strip Ql (U)Ord ered By: Derek Sanchez on 03-13-2025 Ketones Ql (U) Negative Negative [facility] MCV (mean corpuscular volume ) determinationOrdered By: Derek Sanchez on 03-13-2025 MCV (RBC) [Entitic vol] 85.8 fL Normal 81-99 [facility] Comment on above: Performed By: #### L 700.6800, L500.2500, L100.0100 #### [facility] [address] [place], [address] Mean corpuscular hemoglobin (MCH) determinationOrdered By: Derek Sanchez on 03-13-2025 MCH (RBC) [Entitic mass] 29.3 pg Normal 27.0-32.0 [facility] Comment on above: Performed By: #### L 700.6800, L500.2500, L100.0100 #### [facility] [address] [place], [address] Mean corpuscular hemoglobin concentration (MCHC) determinationOrdered By: Derek Sanchez on 03-13-2025 MCHC (RBC) [Mass/Vol] 34.1 g/dL Normal 32-36 [facility] Comment on above: Performed By: #### L 700.6800, L500.2500, L100.0100 #### [facility] [address] [place], [address] Mean platelet volume determi nationOrdered By: Derek Sanchez on 03-13-2025 Platelet mean volume (Bld) [Entitic vol] 9.2 fL Normal 6.2-12.0 [facility] Comment on above: Performed By: #### L 700.6800, L500.2500, L100.0100 #### [facility] [address] [place], [address] Microscopic analysis of urin e for red blood cells (RBC)Ordered By: Derek Sanchez on 03-13-2025 Microscopic analysis of urine for red blood cells (RBC) 0 SEEN /hpf 0-5 [facility] Monocyte percentageOrdered B y: Derek Sanchez on 03-13-2025 Monocytes/100 WBC (Bld) 6.3 % Normal 0-10 [facility] Comment on above: Performed By: #### L 700.6800, L500.2500, L100.0100 #### [facility] [address] [place], [address] Mucus LM Ql (Urine sed)Order ed By: Derek Sanchez on 03-13-2025 Mucus Ql (Urine sed) 0 SEEN /hpf [facility] Neutrophil percentageOrdered By: Derek Sanchez on 03-13-2025 Neutrophils/100 WBC (Bld) 71.4 % High 47-70 [facility] Comment on above: Performed By: #### L 700.6800, L500.2500, L100.0100 #### [facility] [address] [place], [place], [id number] (821) Nitrite Test strip Ql (U)Ord ered By: Derek Sanchez on 03-13-2025 Nitrite Ql (U) Positive High Negative [facility] Nucleated red blood cell per centageOrdered By: Derek Sanchez on 03-13-2025 Nucleated RBC/100 WBC (Bld) [Ratio] 0 % 0-5 [facility] Platelet countOrdered By: Remigio Sanchez on 03-13-2025 Platelets (Bld) [#/Vol] 329 10*3/uL Normal 150-450 [facility] Comment on above: Performed By: #### L 700.6800, L500.2500, L100.0100 #### [facility] [address] [place], [address] Potassium measurement (mass/ volume)Ordered By: Derek Sanchez on 03-13-2025 Potassium (Unsp spec) [Mass/Vol] 3.9 mmol/L 3.3-5.1 [facility] ,Serum,hCG Quali.on 03-13-2025 HCG, SERUM QUAL Negative Normal [facility] Comment on above: Performed By: #### L 700.6800, L500.2500, L100.0100 ####[facility] [address] [place], [address] Protein Test strip Ql (U)Ord ered By: Derek Sanchez on 03-13-2025 Protein Ql (U) 30 mg/dl High Negative [facility] Serum beta-hCG test, qualita tiveOrdered By: Derek Sanchez on 03-13-2025 Beta HCG ( test) Ql Negative [facility] Serum creatinine measurement (mass/volume)Ordered By: Derek Sanchez on 03-13-2025 Creatinine [Mass/Vol] 0.85 mg/dL Normal 0.70-1.20 [facility] Comment on above: Performed By: #### L 700.6800, L500.2500, L100.0100 ####[facility] [address] [place], [address] Serum glucose measurement (m ass/volume)Ordered By: Derek Sanchez on 03-13-2025 Glucose [Mass/Vol] 94 mg/dL Normal 70-99 [facility] Comment on above: Performed By: #### L 700.6800, L500.2500, L100.0100 ####[facility] [address] [place], [address] Serum or plasma calcium unruly urement (mass/volume)Ordered By: Derek Sanchez on 03-13-2025 Calcium [Mass/Vol] 9.0 mg/dL Normal 7.6-11.0 [facility] Comment on above: Performed By: #### L 700.6800, L500.2500, L100.0100 ####[facility] [address] [place], [address] Serum or plasma urea nitroge n measurement (mass/volume)Ordered By: Derek Sanchez on 03-13-2025 Urea nitrogen [Mass/Vol] 9 mg/dL Normal 4-19 [facility] Comment on above: Performed By: #### L 700.6800, L500.2500, L100.0100 ####[facility] [address] [place], [address] Sodium levelOrdered By: Derek Sanchez on 03-13-2025 Sodium [Moles/Vol] 138 mmol/L Normal 133-145 [facility] Comment on above: Performed By: #### L 700.6800, L500.2500, L100.0100 ####[facility] [address] [place], [address] Squamous epithelial cells de tection in urine sediment by light microscopyOrdered By: Derek Sanchez on 03-13-2025 Epithelial cells.squamous LM Ql (Urine sed) 5-10 SEEN /hpf 5-10 [facility] Urinalysis, Completeon 03-13 BACTERIA 1+ /hpf Normal None Seen [facility] Comment on above: Order Comment: CLEAN CATCH Performed By: #### L 400.0001 #### [facility] [address] [place], [address] EPI,SQUAMOUS 5-10 SEEN Normal 5-10 [facility] Comment on above: Order Comment: CLEAN CATCH Performed By: #### L 400.0001 #### [facility] [address] [place], [address] WBC 10-25 SEEN Normal 0-5 [facility] Comment on above: Order Comment: CLEAN CATCH Performed By: #### L 400.0001 #### [facility] [address] [place], [address] Mucus Ql (Urine sed) [address] [facility] Comment on above: Order Comment: CLEAN CATCH Performed By: #### L 400.0001 #### [facility] [address] [place], [address] RBC 0 SEEN Normal 0-5 [facility] Comment on above: Order Comment: CLEAN CATCH Performed By: #### L 400.0001 #### [facility] [address] [place], [address] Urine clarityOrdered By: Delbert Sanchez on 03-13-2025 Clarity (U) Sl. Cloudy Clear [facility] Urine color determinationOrd ered By: Derek Sanchez on 03-13-2025 Color (U) Yellow Yellow [facility] Urine glucose detectionOrder ed By: Derek Sanchez on 03-13-2025 Glucose Ql (U) Normal mg/dl Normal [facility] Urine leukocyte esterase det ection by dipstickOrdered By: Derek Sanchez on 03-13-2025 Leukocyte esterase Test strip Ql (U) 500 /ul High Negative [facility] Urine pHOrdered By: Derek brown on 03-13-2025 pH (U) 6.0 [pH] 5.0 - 8.0 [facility] Urine sediment bacteria coun t by microscopy (number/high power field)Ordered By: Derek Sanchez on 03-13-2025 Bacteria LM.HPF (Urine sed) [#/Area] 1 /[HPF] None Seen [facility] Urine specific gravity measu rementOrdered By: Derek Sanchez on 03-13-2025 Specific gravity (U) [Rel density] 1.020 1.002-1.030 [facility] Urine urobilinogen measureme ntOrdered By: Derek Sanchez on 03-13-2025 Urobilinogen Ql (U) 1 mg/dl High Normal [facility] White blood cell (WBC) count Ordered By: Derek Sanchez on 03-13-2025 WBC (Bld) [#/Vol] 7.3 10*3/uL Normal 4.4-11.0 [facility] Comment on above: Performed By: #### L 700.6800, L500.2500, L100.0100 #### [facility] [address] [place] [address], [address] White blood cell countOrdere d By: Derek Sanchez on 03-13-2025 White blood cell count 10-25 SEEN /hpf 0-5 [facility] Bacteria Ur Culton 5 Bacteria identified Cx Nom (U) ORGANISM ID: 1 50,000-<100,000 CFU/ml Normal urogenital treasure Normal [facility] Comment on above: Performed By: #### 6 30-4 #### [facility] CLIA [id number] [address] [place] [address] OF [facility] CNOVon 03-12-2025 CNOV Office Visit (WOUCA) ABDOUL FAITH ([id number]) 1980 F Date Time Provider Department 03/12/25 9:45 AM INDY QUIGLEY During your visit today, we recorded the following information about you: Temperature Pulse Respiration Blood pressure 98.1 degrees 85/minute 16/minute 124/82 Weight 79.9 kg Indy Quigley PA 03/12/2025 10:01 AM Signed [facility] Subjective Abdoul Faith is a 44 year old female. Patient presents with: Urinary Frequency: Frequency, urgency and cramping x 2 days HPI The patient is a 44-year-old female presenting with lower pelvic pain and urinary urgency. Lower Pelvic Pain and Urinary Urgency: - Onset 2 days ago. - Describes pain as "spasms" in the lower pelvic area, with sharp pain and urgency to urinate. - Pain is intermittent, with episodes of sharp pain. - Reports nausea associated with the pain. - Denies dysuria or hematuria; notes "pressure" when urinating. - Took Azo yesterday with minimal relief. - Denies back pain, fevers, or emesis; experienced chills last night. - Denies vaginal discharge or pruritus. - Denies concern for STDs. - History of UTIs, with the last episode a couple of months ago. PAST MEDICAL HISTORY Diagnosis Date Human papillomavirus in conditions classified elsewhere and of unspecified site Kidney stones Menorrhagia resolved with ablation Migraines Unspecified asthma(493.90) PAST SURGICAL HISTORY Procedure Laterality Date ESSURE 2012 OFFICE ENDOMETRIAL ABLATION 2011 UNSPECIFIED ORAL SURGERY PROCEDURE, BY REPORT [place] ALLERGIES Augmentin [Amoxicillin-Pot Clavulanate] and Seasonal Allergies MEDICATIONS albuterol HFA (PROVENTIL HFA) 90 mcg/actuation inhaler Inhale 1-2 puffs as instructed four times a day as needed for wheezing/shortness of breath. fluticasone-salmetero l (ADVAIR DISKUS) 100-50 mcg/dose inhaler Inhale 1 puff as instructed two times a day. famotidine (PEPCID) 20 mg tablet Take 1 tablet by mouth at bedtime as needed. nitrofurantoin monohydrate and macrocrystal (MACROBID) 100 mg capsule Take 1 capsule by mouth two times a day for 5 days. buPROPion SR (WELLBUTRIN SR) 150 mg 12 hr tablet Take 1 tablet by mouth two times a day. (Patient not taking: Reported on 03/12/2025) FAMILY HISTORY Problem Relation Age of Onset other (pulmonary issues) Mother Obesity Mother Asthma Father Obesity Father Seizures Maternal Grandmother Obesity Maternal Grandmother No Known Problems Maternal Grandfather Emphysema Paternal Grandmother Obesity Paternal Grandmother No Known Problems Son No Known Problems Son Asthma Son Eczema Son Arthritis Maternal Aunt Rheumatoid SOCIAL HISTORY[1] Review of Systems Constitutional: (+) chills, (-) fever Gastrointestinal: (+) nausea, (-) vomiting Genitourinary: (+) pelvic pain, (+) urinary urgency, (+) urinary frequency, (-) vaginal discharge Musculoskeletal: (-) back pain Objective BP 124/82 Pulse 85 Temp 36.7 ?C (98.1 ?F) (Tympanic) Resp 16 Wt 79.9 kg (176 lb 2.4 oz) LMP 05/28/2024 (Approximate) SpO2 98% BMI 29.31 kg/m? Physical Exam General: Not in acute distress, normal appearance, well-developed, not toxic-appearing Cardiovascular - Rate/Rhythm: Normal rate and regular rhythm - Heart Sounds: Normal heart sounds Pulmonary - Lung Sounds: Normal breath sounds - Respiratory Effort: Pulmonary effort normal Abdomen - Mild discomfort in the lower pelvic area; no pain on palpation in upper abdomen - No CVA tenderness. { 1. Urinary frequency (R35.0) 2. Acute cystitis with hematuria (N30.01) - Acute cystitis with hematuria confirmed by urinalysis (positive for blood, nitrites, and WBCs). - Reviewed labs last year- normal renal function - Start Macrobid BID for 5 days. - Urine culture ordered; will review results and contact patient in 1-2 days. - Advised continuation of Azo for bladder spasms and to maintain adequate fluid intake. - Instructed patient to seek emergency care if symptoms worsen. and Recording using Isoflux software for draft documentation of the visit was discussed with the patient/authorized digital sales representative; all questions welcomed and answered. Patient/authorized digital sales representative agreed to proceed Diagnosis and treatment plan were discussed and questions were answered to the patient's satisfaction. Pt acknowledged understanding of concepts and follow up plan. Specific signs and symptoms that would indicate the need for higher level of care were discussed in detail warranting prompt ER evaluation. History and Record Review External record(s) reviewed: prior labs/imaging. Findings from review of prior labs/imaging: Previous Renal Function Panel Reviewed No results within last 365 days. Differential Diagnoses - uti is more likely for the following reason(s): suggested by H (more content not included)... [facility]ED[facility]EMAC[facility] ABDOUL FAITH ([id number]) 1980 F Date Time Provider Department 11/22/24 TRINI BLACKBURN During your visit today, we recorded the following information about you: Noni Adorno 11/22/2024 11:57 AM Signed Due in December. LVM Allergies As of Date: 11/22/2024 Noted Allergy Reaction AUGMENTIN (AMOXICILLIN-POT CLAVUL*07/01/2021 6 - Diarrhea SEASONAL ALLERGIES 11/13/2007 5 - Intolerance Date Reviewed: 12/21/2023 Reviewed by: Nancy Viera APRN.HR PAYROLL COORDINATOR - Fully Assessed Reason for Visit: Appointment [186] Cmt: 6 Month Follow up Prescriptions as of 11/22/2024 - buPROPion SR (WELLBUTRIN SR) 150 mg 12 hr tablet Take 1 tablet by mouth two times a day. - fluticasone-salmetero l (ADVAIR DISKUS) 100-50 mcg/dose inhaler Inhale 1 puff as instructed two times a day. - albuterol HFA (PROVENTIL HFA) 90 mcg/actuation inhaler Inhale 1-2 Puffs as instructed four times a day as needed for wheezing/shortness of breath. - famotidine (PEPCID) 20 mg tablet Take 1 tablet by mouth at bedtime as needed. Problem List As Of Date 11/22/2024 Noted Resolved Mild persistent asthma without complication [J4*01/23/2018 Seasonal allergic rhinitis due to pollen [J30.1]01/23/2018 Migraine with aura and without status migrainos*12/21/2023 Gastroesophageal reflux disease [K21.9] 12/21/2023 Vitamin D deficiency [E55.9] 12/21/2023 Class 1 obesity with body mass index (BMI) of 3*12/21/2023 Elevated LDL cholesterol level [E78.00] 12/21/2023 Encounter Status:Closed by NONI ADORNO on 11/22/24 Normal [facility] Emergency Department Summary on 10-07-2024 Emergency Department Summary [facility] Medical Records Department [address] [place] [address] Emergency Department Summary 10/07/24 MR#: [id number] Acct: [id number] Name: ABDOUL FAITH Rep #: [id number] : 1980 44 From: Fernando Ruiz 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 Pain radiates to the sides. Symptoms worse with movement. Using Tylenol Motrin last dose 5 PM. Has had lower back issues in the past. 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 Unable to work therefore came down to the ED. Allergies to Augmentin. History of asthma and seasonal allergies. Has not had pain in this area in the past. Prior similar symptoms: No PFSH PFSH Medical History Cardiac murmur Dyspnea Chest discomfort Fatigue Kidney stones Obesity (BMI 30.0-34.9) Depression Lightheadedness Palpitations Environmental allergies Asthma Migraine Anxiety Home Medications ???Medication ???Instructions ???Recorded ???Last Taken ???Type albuterol sulfate 90 mcg/actuation 1 - 2 puff inhalation Q6H PRN [place] N 06/17/16 Unknown History aerosol inhaler (Ventolin HFA) Sob /Or Wheezing famotidine 20 mg tablet (Pepcid) 20 mg PO QHS 07/23/24 Unknown Hist ory bupropion HCl 150 mg tablet,12 hr 150 mg PO BID 08/21/24 Unknown Hi story sustained-release diazepam 5 mg tablet 5 mg PO Q8 PRN Muscle Spasm #20 Unknown Rx tabs fluticasone 100 mcg-salmeterol 50 1 inh inhalation DAILY 10/07/24 U nknown History mcg/dose blistr powdr for inhalation (Advair Diskus) ibuprofen 600 mg tablet 600 mg PO Q6H PRN PRN pain #20 10/27 Unknown Rx TABLETS Allergy/AdvReac Type Severity Reaction Status Date / Time amoxicillin (From Augmentin) AdvReac Mild Abd Verified 10/07/24 18:37 cramps/diarrhea clavulanic acid (From AdvReac Mild Abd Verified 10/07/24 18:37 Augmentin) cramps/diarrhea Family History Father Asthma Obesity Grandfather COPD (chronic obstructive pulmonary disease) Obesity Son Asthma Mother Obesity Surgical History Hx of oral surgery Social History household members: none Smoking Status: Former smoker Electronic Cigarette Use: with nicotine alcohol intake: current alcohol intake frequency: holidays/special occasions only substance use type: does not use ROS ROS ED Constitutional Constitutional ED: Denies fever(s) Gastrointestinal Gastrointestinal: Denies diarrhea, nausea or vomiting Musculoskeletal Musculoskeletal: Reports back pain; Denies extremity pain Neurologic Neurologic: Denies paresthesias or weakness EXAM Physical Exam Const Vital Signs: 10/07/24 18:37 10/07/24 20:37 10/07/24 22:00 Temperature 97.9 F Temperature Source Temporal Pulse Rate 88 78 78 Respiratory Rate 16 18 19 H Blood Pressure 126/88 H 138/78 H 130/82 H Blood Pressure Mean 100 98 98 Pulse Ox 98 98 98 Oxygen Delivery Method Room Air 10/07/24 23:04 Temperature 98.3 F Temperature Source Pulse Rate 78 Respiratory Rate 19 H Blood Pressure 130/82 H Blood Pressure Mean 98 Pulse Ox 98 Oxygen Delivery Method Positive well nourished and well developed Constitutional Narrative: Standing in room, nontoxic General Appearance ED: well developed HEENT Reports moist mucous membranes normocephalic and atraumatic Eyes General Eye ED: Yes normal appearance of both eyes Neck full ROM Chest Wall Chest: Negative for tenderness Resp normal respiratory effort and normal air movement Effort and Inspection: symmetric chest movement; Negative for respiratory distress Cardio regular rate, regular rhythm and no murmurs Peripheral Pulses: pulses 2+ throughout GI normal to inspection, nondistended, normoactive bowel sounds and non-tender Palpation: Negative for guarding or rebound tenderness present Back/Spine Back/Spine Narrative: No midline tenderness, reproduced tenderness thoracic spine T10 area with rotation sidebending to the right. Extremity normal to inspection General Extremety ED: Negative for edema or tenderness General Extremity: Negative for edema Neuro oriented x3 and no sensory deficits noted Sensorium / Orientation: awake and alert Skin no rashes or lesions noted and no wounds MDM MDM MDM Narrative Medical decision making narrative: Interventions / MDM: Differential diagnosis: Thoracic strain, somatic dysfunction thora (more content not included)... [facility] ABD[facility]L FA[facility] ([id number]) 1980 F Date Time Provider Department 08/26/24 TRINI BLACKBURN During your visit today, we recorded the following information about you: Enmanuel Pinedo 08/26/2024 3:45 PM Signed Received a VM from Sloane at [facility] about the prescription for Ventolin inhaler. Pharmacy needs updated instructions including interval of use for an accurate day supply for her insurance. Please call or send updated script. Enmanuel Pinedo, Career Resource Technician August 26, 2024 3:45 PM Enmanuel Pinedo 08/27/2024 4:25 PM Signed Trini Blackburn, DO You4 minutes ago (4:20 PM) EC Prescription instructions updated in chart to reflect dosage/patient instructions. Allergies As of Date: 08/26/2024 Noted Allergy Reaction AUGMENTIN (AMOXICILLIN-POT CLAVUL*07/01/2021 6 - Diarrhea SEASONAL ALLERGIES 11/13/2007 5 - Intolerance Date Reviewed: 12/21/2023 Reviewed by: Nancy Viera APRN.HR PAYROLL COORDINATOR - Fully Assessed Reason for Visit: Can Tender - Other [3608] Cmt: [facility] - updated instructions Visit Diagnosis:Mild persistent asthma without complication [J45.30] Order(s):VENTOLIN HFA 90 mcg/actuation inhalerInhale 2 puffs by mouth every 2 hours as needed for wheezing or shortness of breath.Disp: 1 EachRfl: 2 Prescriptions as of 08/27/2024 - VENTOLIN HFA 90 mcg/actuation inhaler Inhale 2 puffs by mouth every 2 hours as needed for wheezing or shortness of breath. - fluticasone-salmetero l (ADVAIR DISKUS) 100-50 mcg/dose inhaler Inhale 1 Puff as instructed two times a day. - buPROPion SR (WELLBUTRIN SR) 150 mg 12 hr tablet Take 1 tablet by mouth two times a day. - famotidine (PEPCID) 20 mg tablet Take 1 tablet by mouth at bedtime as needed. Problem List As Of Date 08/26/2024 Noted Resolved Mild persistent asthma without complication [J4*01/23/2018 Seasonal allergic rhinitis due to pollen [J30.1]01/23/2018 Migraine with aura and without status migrainos*12/21/2023 Gastroesophageal reflux disease [K21.9] 12/21/2023 Vitamin D deficiency [E55.9] 12/21/2023 Class 1 obesity with body mass index (BMI) of 3*12/21/2023 Elevated LDL cholesterol level [E78.00] 12/21/2023 Prescriptions ordered this encounter Disp Refills Start End VENTOLIN HFA 90 MCG/ACTUATION AEROSO* 1 Ea* 2 08/27/2024 Cmt: Generic or brand: dispense inhaler preferred by patient/insurance unless SUYAPA flag is selected. Sig: Inhale 2 puffs by mouth every 2 hours as needed for wheezing or shortness of breath. Medications Discontinued During This Encounter Prescriptions - VENTOLIN HFA 90 mcg/actuation inhaler (Discontinued) Inhale by mouth as instructed. Encounter Status:Closed by TRINI BLACKBURN on 08/27/24 [facility] Frida 08-23-2024 CNPN Telephone (AGINTMAC) ABDOUL FAITH ([id number]) 1980 F Date Time Provider Department 08/23/24 TRINI BLACKBURN During your visit today, we recorded the following information about you: Enmanuel Pinedo 08/23/2024 1:51 PM Signed ----- Message from Penelope Hastings sent at 08/23/2024 12:40 PM EDT ----- Regarding: Medicine / Carlotta/ pt requested an alternate inhaler to try; however insurance does not cover; pt requesting prescription for original rescue inhal[facility] Subject Line Format: Medicine / [Provider Name] / [Issue] Select Primary Care Department Name For Pool Routing Assistance: INTM AG ACC => AG INTM ACC APPT [facility] [place] [[phone]] ==== Patient: Abdoul Faith Date of : 1980 Primary Care Provider: Benigno Laguerre DO Patient has been identified by name and Date of (Y/N): y Patient: Abdoul Faith Date of : 1980 Provider for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 6. Hot flashes and night sweats, would consider ruling out premenopause PLAN AND RECOMMENDATIONS: Patient has various symptoms for which we have performed the following testin. An echocardiogram to evaluate heart structure and function 2. Treadmill stress test to evaluate provokable response and possible dysrhythmia 3. 14-day teletypesetter monitor. The patient may however take this off sooner if there are multiple times she presses the button prior to such 4. Sleep study We discussed at length dietary and lifestyle modification. This included small meals, incorporation of fruits and vegetables, adequate protein and of course daily exercise including resistance training. The patient is also having perimenopausal symptoms and would highly recommend considering checking her hormones. In the absence of findings, we recommend looking to other noncardiac causes for which we believe sleep apnea would be high on the differential. Other symptoms could be from simple musculoskeletal means. If the patient has an extensive workup with continued or worsening symptoms, then repeat cardiac evaluation may be necessary in the distant future. Vitals: BP 96/64 Ht 166.4 cm (5' 5.5") Wt 88 kg (194 lb) LMP 08/29/2023 (Approximate) BMI 31.79 kg/m? Physical Exam Vitals reviewed. Constitutional: General: She is not in acute distress. Appearance: Normal appearance. She is well-developed. HENT: Head: Normocephalic and atraumatic. Nose: Nose normal. Eyes: General: No scleral icterus. Right eye: No discharge. Left eye: No discharge. Pupils: Pupils are equal, round, and reactive to light. Neck: Thyroid: No thyromegaly. Vascular: No carotid bruit or JVD. Cardiovascular: Rate and Rhythm: Normal rate and regular rhythm. Heart sounds: Normal heart sounds. No murmur heard. No friction rub. No gallop. Pulmonary: Effort: Pulmonary effort is normal. No respiratory distress. Breath sounds: Normal breath sounds. No wheezing or rales. Abdominal: General: Bowel sounds are normal. Palpations: Abdomen is soft. Musculoskeletal: General: Normal range of motion. Cervical back: Normal range of motion and neck supple. Skin: General: Skin is warm and dry. Capillary Refill: Capillary refill takes less than 2 seconds. Coloration: Skin is not pale. Neurological: Mental Status: She is alert and oriented to person, place, and time. Cranial Nerves: No cranial nerve deficit. Psychiatric: Behavior: Behavior normal. Thought Content: Thought content normal. Judgment: Judgment normal. Review of Systems Constitutional: Negative for activity change and fatigue. (more content not included)... [facility] 12-14-2023 [facility] Telephone (CARFiftyFiver) FAITHABDOUL ([id number]) 1980 F Date Time Provider Department 12/14/23 JUAN MANUEL GAYLE During your visit today, we recorded the following information about you: Laura Duncan MA 12/14/2023 4:43 PM Signed Please call Pt to schedule Echo and Stress ECG ordered by Dr Gayle today. Zully Holloway 12/19/2023 9:32 AM Signed First attempt at contacting patient, left VM to schedule testing Zully Holloway 12/21/2023 12:33 PM Signed Patient is scheduled Allergies As of Date: 12/14/2023 Noted Allergy Reaction AUGMENTIN (AMOXICILLIN-POT CLAVUL*07/01/2021 6 - Diarrhea SEASONAL ALLERGIES 11/13/2007 5 - Intolerance Date Reviewed: 12/14/2023 Reviewed by: Juan Manuel Gayle DO - Fully Assessed Reason for Visit: Appointment [[id number]] Prescriptions as of 12/21/2023 - esomeprazole (NEXIUM) 40 mg capsule Take 1 capsule by mouth daily before breakfast. - buPROPion SR (WELLBUTRIN SR) 150 mg 12 hr tablet Take 1 tablet by mouth two times a day. - metFORMIN (GLUCOPHAGE) 500 mg tablet Take 1 tablet by mouth two times a day with meals. - albuterol HFA (VENTOLIN HFA) 90 mcg/actuation inhaler Inhale 2 Puffs as instructed every 4 hours as needed for wheezing/shortness of breath. - fluticasone-salmetero l (ADVAIR DISKUS) 100-50 mcg/dose inhaler Inhale 1 Puff as instructed two times a day. - famotidine (PEPCID) 20 mg tablet Take 1 tablet by mouth at bedtime as needed. - nitrofurantoin (MACRODANTIN) 50 mg capsule Take 1 capsule by mouth as needed (POST COITAL). Problem List As Of Date 12/14/2023 Noted Resolved Mild persistent asthma without complication [J4*01/23/2018 Seasonal allergic rhinitis due to pollen [J30.1]01/23/2018 Encounter Status:Closed by LAURA DUNCAN on 12/14/23 [facility] Absolute lymphocyte countOrd ered By: Anju Bermudez on 05-30-2023 Lymphocytes Auto (Unsp spec) [#/Vol] 1.99 10*3/uL 0.83-4.51 [facility] Basophil percentageOrdered B y: Anju Bermudez on 05-30-2023 Basophils/100 WBC (Bld) 0.3 % 0-1 [facility] Chloride [Moles/Vol] 109 mmol/L 98-107 [facility] Eosinophils/100 WBC (Bld) 3.9 % 0-5 [facility] Glucose [Mass/Vol] 94 mg/dL 74-106 [facility] Neutrophils (Bld) [#/Vol] 3.1 10*3/uL 2.0-7.7 [facility] Neutrophils/100 WBC (Bld) 52.5 % 47-70 [facility] Potassium [Moles/Vol] 3.8 mmol/L 3.5-5.1 [facility] Sodium [Moles/Vol] 138 mmol/L 136-145 [facility] WBC (Bld) [#/Vol] 5.9 10*3/uL 4.4-11.0 [facility] Beta hCG serum qualOrdered B y: Anju Bermudez on 05-30-2023 Beta HCG ( test) Ql Negative [facility] Blood erythrocytes count (nu mber/volume)Ordered By: Anju Bermudez on 05-30-2023 RBC (Bld) [#/Vol] 4.70 10*6/uL 4.2-5.4 [facility] Blood hemoglobin measurement (mass/volume)Ordered By: Anju Bermudez on 05-30-2023 Hemoglobin (Bld) [Mass/Vol] 13.6 g/dL 12.0-15.0 [facility] Blood lymphocytes/100 leukoc ytesOrdered By: Anju Bermudez on 05-30-2023 Lymphocytes/100 WBC (Bld) 34.0 % 19-41 [facility] Blood monocytes/100 leukocyt esOrdered By: Anju Bermudez on 05-30-2023 Monocytes/100 WBC (Bld) 9.0 % 0-10 [facility] Blood platelet mean volumeOr dered By: Anju Bermudez on 05-30-2023 Platelet mean volume (Bld) [Entitic vol] 8.9 fL 6.2-12.0 [facility] Determination of erythrocyte mean corpuscular volume (MCV)Ordered By: Anju Bermudez on 05-30-2023 MCV (RBC) [Entitic vol] 85.5 fL 81-99 [facility] Hematocrit Auto (Bld) [Volum e fraction]Ordered By: Anju Bermudez on 05-30-2023 Hematocrit (Bld) [Volume fraction] 40.2 % 37-47 [facility] Influenza virus A and B and SARS-CoV-2 (COVID-19) Ag panel - Upper respiratory specimOrdered By: Anju Bermudez on 05-30-2023 SARS-CoV-2 & FLU Antigen (Rapid) Influenzae A [facility] - Chemistry and C hemistry - challengeOrdered By: Anju Bermudez on 05-30-2023 CO2 [Moles/Vol] 24.0 mmol/L 21.0-32.0 [facility] Urea nitrogen/Creatinine [Mass ratio] 17.5 mg/mg 10-20 [facility] - Hematology and Cell countsOrdered By: Anju Bermudez on 05-30-2023 Erythrocyte distribution width (RBC) [Entitic vol] 39.4 fL 35.1-43.9 [facility] Erythrocyte distribution width (RBC) [Ratio] 12.6 % 11.6-14.6 [facility] Immature granulocytes/100 WBC (Bld) 0.300 % 0.0-0.9 [facility] Comment on above: IG% - Immature Granu locytes (promyelocytes, myelocytes and metamyelocytes) > 1% indicates that a LEFT SHIFT is Present. MCH (RBC) [Entitic mass] 28.9 pg 27.0-32.0 [facility] Nucleated RBC/100 WBC (Bld) [Ratio] 0 % 0-5 [facility] MCHC Auto (RBC) [Mass/Vol]Or dered By: Anju Bermudez on 05-30-2023 MCHC (RBC) [Mass/Vol] 33.8 g/dL 32-36 [facility] No Panel InformationOrdered By: Anju Bermudez on 05-30-2023 D-Dimer Quantitative (PE/DVT) 0.38 FEU/ug/m 0.27-0.49 [facility] Comment on above: NORMAL D-Dimer level (<0.50) indicates no DVT or PE. Estimated Creatinine Clearance Calc 82.43 ml/min [facility] Estimated GFR (MDRD) Amer 101 mL/min >60 [facility] Comment on above: GFR Calc Estimated GFR (MDRD) Non-Af Amer 84 mL/min >60 [facility] Comment on above: Non- GFR Calc Platelets bldOrdered By: Grace Bermudez on 05-30-2023 Platelets (Bld) [#/Vol] 252 10*3/uL 150-450 [facility] Serum or plasma calcium unruly urement (mass/volume)Ordered By: Anju Bermudez on 05-30-2023 Calcium [Mass/Vol] 8.8 mg/dL 8.5-10.1 [facility] Serum or plasma creatinine m easurement (mass/volume)Ordered By: Anju Bermudez on 05-30-2023 Creatinine [Mass/Vol] 0.80 mg/dL 0.55-1.02 [facility] Comment on above: The validity of the calculated GFR & GFRAA in patients over 70 years has not been determined. Clinical correlation is essential. Serum or plasma urea nitroge n measurement (mass/volume)Ordered By: Anju Bermudez on 05-30-2023 Urea nitrogen [Mass/Vol] 14 mg/dL 12-20 [facility] Thin prep Papanicolaou smear with manual screeningOrdered By: Anju Bermudez on 05-30-2023 Thin prep Papanicolaou smear with manual screening 5 -15 [facility] XR Chest PA and Lateralon IMPRESSION: No acute radiographic abnormality. Civil Drafting Technician: LIZZ Transcribe Date/Time: May 22 2023 10:35A Dictated by : BEKAH ANG MD This examination was interpreted and the report reviewed and electronically signed by: BEKAH ANG MD on May 22 2023 10:35AM EST DIVISION OF RADIOLOGY * * *Final Report* * * DATE OF EXAM: May 22 2023 10:21AM WOX [id number] - XR CHEST 2V FRONTAL/LAT / PROCEDURE REASON: multiple diagnoses * * * * Physician Interpretation * * * * EXAMINATION: CHEST RADIOGRAPH (2 VIEW FRONTAL & LATERAL) CLINICAL HISTORY: Subacute cough Hemoptysis MQ: XC2_6 EXAM DATE/TIME: 05/22/2023 10:21 AM COMPARISON: No relevant prior studies available. RESULT: Lines, tubes, and devices: None. Lungs and pleura: No consolidation. No lung mass. No pleural effusion. No pneumothorax. Cardiomediastinal silhouette: Normal cardiomediastinal silhouette. Bones and soft tissues: Unremarkable. DIVISION [facility]IOLOGY [facility] - 05/22/2023 * * *Final Report* * * DATE OF EXAM: May 22 2023 10:21AM WOX [id number] - XR CHEST 2V FRONTAL/LAT / PROCEDURE REASON: multiple diagnoses * * * * Physician Interpretation * * * * EXAMINATION: CHEST RADIOGRAPH (2 VIEW FRONTAL & LATERAL) CLINICAL HISTORY: Subacute cough Hemoptysis MQ: XC2_6 EXAM DATE/TIME: 05/22/2023 10:21 AM COMPARISON: No relevant prior studies available. RESULT: Lines, tubes, and devices: None. Lungs and pleura: No consolidation. No lung mass. No pleural effusion. No pneumothorax. Cardiomediastinal silhouette: Normal cardiomediastinal silhouette. Bones and soft tissues: Unremarkable. IMPRESSION IMPRESSION: No acute radiographic abnormality. Civil Drafting Technician: PSCB Transcribe Date/Time: May 22 2023 10:35A Dictated by : BEKAH ANG MD This examination was interpreted and the report reviewed and electronically signed by: BEKAH ANG MD on May 22 2023 10:35AM [facility] Radiology Study observation (narrative) Scott valladares [facility] XR Chest PA and LateralOrder ed By: Ccf Provider on 05-22-2023 [facility] CT FLANK WO IVCONon 11-16-19 [facility] COVID PCR, SCREENING CONGREG ATEon 11-27-2019 CORONAVIRUS 2019,PCR NOT DETECTED Normal Not Detected [facility] Comment on above: Result Comment: This assay is designed to detect the N, ORF1ab and/or S genes of SARS-CoV-2 via nucleic acid amplification. A Negative (NOT DETECTED) result does not preclude 2019-nCoV infection since the adequacy of sample collection and/or low viral burden may result in presence of viral nucleic acids below the clinical sensitivity of this test method. Negative (NOT DETECTED) result should not be used as the sole basis for treatment or other patient management decisions. Rather negative results should be combined with clinical observations, patient history, and epidemiological information to make patient management decisions. Fact sheet for providers: https://www.fda.gov/media/746649/download Fact sheet for patients: https://www.fda.gov/media/073350/download This test has received FDA Emergency Use Authorization (EUA) and has been verified by [facility] ([facility]). This test is only authorized for the duration of time that circumstances exist to justify the authorization of the emergency use of in vitro diagnostic tests for the detection of SARS-CoV-2 virus and/or diagnosis of COVID-19 infection under section 564(b)(1) of the Act, 21 U.S.C. 360bbb-3(b)(1), unless the authorization is terminated or revoked sooner. [facility] ([facility]) is certified under CLIA-88 as qualified to perform high complexity testing. This tests analytical performance characteristics have been determined by [facility]. Testing is performed at [facility] is located at [address] [place] [address] (CLIA License #[id number], CAP #[id number]). Performed By: #### C VCLA #### [facility] [address] [place] [address] COVID PCR, SCREENING CONGREG ATEon 11-26-2019 Lab Specimen Source Nasal, Nasopharyngeal Normal [facility] Comment on above: Performed By: #### C VCLA #### [facility] [address] [place] [address] Vital Signs Date Time Vital Sign Value Performing Clinician Bessy hernandez 03-13-2025 12:55-0400 Body temperature 97.8 [degF] Dr. Derek Sanchez MD Work Phone: [facility] 03-13-2025 12:55-0400 Diastolic blood pressure 78 mm[Hg] Dr. Derek Sanchez MD Work Phone: [facility] 03-13-2025 12:55-0400 Heart rate 64 /min Dr. Derek Sanchez MD Work Phone: [facility] 03-13-2025 12:55-0400 Respiratory rate 18 /min Dr. Derek Sanchez MD Work Phone: [facility] 03-13-2025 12:55-0400 SaO2% (BldA) [Mass fraction] 99 % Dr. Derek Sanchez MD Work Phone: [phone] [place] [address] 03-13-2025 12:55-0400 Systolic blood pressure 134 mm[Hg] Dr. Derek Sanchez MD Work Phone: [facility] 03-13-2025 09:25-0400 Body height 165.[address] Derek Sanchez MD Work Phone: [facility] 03-13-2025 09:25-0400 Body mass index (BMI) [Ratio] 29.9 kg/m2 Dr. Derek Sanchez MD Work Phone: [facility] 03-13-2025 09:25-0400 Body weight 81.[address] Derek Sanchez MD Work Phone: [facility] 07-02-2024 08:18-0500 Body height 165.1 cm Trini Blackburn DO Work Phone: [facility] 07-02-2024 08:18-0500 Body mass index (BMI) [Ratio] 31.28 kg/m2 Trini Blackburn DO Work Phone: [facility] 07-02-2024 08:18-0500 Body temperature 97.9 [degF] Trini Blackburn DO Work Phone: [facility] 07-02-2024 08:18-0500 Body weight 85.28 kg Trini Blackburn DO Work Phone: [facility] 07-02-2024 08:18-0500 Diastolic blood pressure 85 mm[Hg] Trini Blackburn DO Work Phone: [facility] 07-02-2024 08:18-0500 Heart rate 85 /min Trini Blackburn DO Work Phone: [facility] 07-02-2024 08:18-0500 Respiratory rate 18 /min Trini Blackburn DO Work Phone: [facility] 07-02-2024 08:18-0500 SaO2% (BldA) [Mass fraction] 99 % Trini Blackburn DO Work Phone: [facility] 07-02-2024 08:18-0500 Systolic blood pressure 121 mm[Hg] Trini Blackburn DO Work Phone: [facility] 12-21-2023 07:43-0400 Body height 165.1 cm Nancy Viera APRN.HR PAYROLL COORDINATOR Work Phone: [facility] 12-21-2023 07:43-0400 Body mass index (BMI) [Ratio] 32.28 kg/m2 Nancy Viera APRN.HR PAYROLL COORDINATOR Work Phone: [facility] 12-21-2023 07:43-0400 Body weight 88 kg Nancy Viera APRN.HR PAYROLL COORDINATOR Work Phone: [facility] 12-21-2023 07:43-0400 Diastolic blood pressure 85 mm[Hg] Nancy Viera APRN.HR PAYROLL COORDINATOR Work Phone: [facility] 12-21-2023 07:43-0400 Heart rate 81 /min Nancy Viera APRN.HR PAYROLL COORDINATOR Work Phone: [facility] 12-21-2023 07:43-0400 SaO2% (BldA) [Mass fraction] 98 % Nancy Viera APRN.HR PAYROLL COORDINATOR Work Phone: [facility] 12-21-2023 07:43-0400 Systolic blood pressure 120 mm[Hg] Nancy Viera APRN.HR PAYROLL COORDINATOR Work Phone: [facility] 12-14-2023 15:32-0400 Body height 166.4 cm Juan Manuel Josesito DO Work Phone: [facility] 12-14-2023 15:32-0400 Body mass index (BMI) [Ratio] 31.79 kg/m2 Juan Manuel Gayle DO Work Phone: [facility] 12-14-2023 15:32-0400 Body weight 88 kg Juan Manuel Gayle DO Work Phone: [facility] 12-14-2023 15:32-0400 Diastolic blood pressure 64 mm[Hg] Juan Manuel Gayle DO Work Phone: [facility] 12-14-2023 15:32-0400 Systolic blood pressure 96 mm[Hg] Juan Manuel Gayle DO Work Phone: [facility] 09-15-2023 11:26-0400 Body weight 88.45 kg Nancy Viera APRN.HR PAYROLL COORDINATOR Work Phone: [facility] 09-15-2023 11:26-0400 Diastolic blood pressure 72 mm[Hg] Nancy Viera APRN.HR PAYROLL COORDINATOR Work Phone: [facility] 09-15-2023 11:26-0400 Systolic blood pressure 114 mm[Hg] Nancy Viera APRN.HR PAYROLL COORDINATOR Work Phone: [facility] 08-22-2023 09:02-0400 Diastolic blood pressure 70 mm[Hg] Ila Canales MD Work Phone: [facility] 08-22-2023 09:02-0400 Systolic blood pressure 110 mm[Hg] Ila Canales MD Work Phone: [facility] 08-22-2023 08:38-0400 Body height 166.4 cm Ila Canales MD Work Phone: [facility] 08-22-2023 08:38-0400 Body weight 88 kg Ila Canales MD Work Phone: [facility] 08-22-2023 08:38-0400 Heart rate 88 /min Ila Canales MD Work Phone: [facility] 08-22-2023 08:38-0400 SaO2% (BldA) [Mass fraction] 100 % Ila Canales MD Work Phone: [facility] 05-30-2023 10:04-0500 Diastolic blood pressure 97 mm[Hg] [facility] 05-30-2023 10:04-0500 Heart rate 87 /min [facility] 05-30-2023 10:04-0500 Respiratory rate 16 /min [facility] 05-30-2023 10:04-0500 SaO2% (BldA) [Mass fraction] 98 % [facility] 05-30-2023 10:04-0500 Systolic blood pressure 119 mm[Hg] [facility] 05-30-2023 08:31-0500 Body height 165.1 cm [facility] 05-30-2023 08:31-0500 Body mass index (BMI) [Ratio] 31.4 kg/m2 [facility] 05-30-2023 08:31-0500 Body temperature 97.2 [degF] [facility] 05-30-2023 08:31-0500 Body weight 85.72 kg [facility] 05-20-2023 12:06-0500 Body temperature 97.7 [degF] César Fernandez MD Work Phone: [facility] 05-20-2023 12:06-0500 Body weight 84.91 kg César Fernandez MD Work Phone: [facility] 05-20-2023 12:06-0500 Diastolic blood pressure 100 mm[Hg] César Fernandez MD Work Phone: [facility] 05-20-2023 12:06-0500 Heart rate 92 /min César Fernandez MD Work Phone: [facility] 05-20-2023 12:06-0500 Respiratory rate 20 /min César Fernandez MD Work Phone: [facility] 05-20-2023 12:06-0500 SaO2% (BldA) [Mass fraction] 100 % César Fernandez MD Work Phone: [facility] 05-20-2023 12:06-0500 Systolic blood pressure 134 mm[Hg] César Fernandez MD Work Phone: [facility] 04-02-2023 08:44-0400 Body temperature 98.8 [degF] Aminah Athy PA-C Work Phone: [facility] 04-02-2023 08:44-0400 Body weight 82.46 kg Aminah Athy PA-C Work Phone: [facility] 04-02-2023 08:44-0400 Diastolic blood pressure 80 mm[Hg] Aminah Athy PA-C Work Phone: [facility] 04-02-2023 08:44-0400 Heart rate 100 /min Aminah Athy PA-C Work Phone: [facility] 04-02-2023 08:44-0400 Respiratory rate 20 /min Aminah Athy PA-C Work Phone: [facility] 04-02-2023 08:44-0400 SaO2% (BldA) [Mass fraction] 99 % Aminah Athy PA-C Work Phone: [facility] 04-02-2023 08:44-0400 Systolic blood pressure 118 mm[Hg] Aminah Athy PA-C Work Phone: [facility] 07-25-2022 14:57-0500 Body height 167.6 cm Ila Canales MD Work Phone: [facility] 07-25-2022 14:57-0500 Body weight 90.27 kg Ila Canales MD Work Phone: [facility] 07-25-2022 14:57-0500 Diastolic blood pressure 73 mm[Hg] Ila Canales MD Work Phone: [facility] 07-25-2022 14:57-0500 Heart rate 82 /min Ila Canales MD Work Phone: [facility] 07-25-2022 14:57-0500 SaO2% (BldA) [Mass fraction] 97 % Ila Canales MD Work Phone: [facility] 07-25-2022 14:57-0500 Systolic blood pressure 119 mm[Hg] Ila Canales MD Work Phone: [facility] Encounters Encounter Date Encounter Type Care Provider Facility Start: 03-27-2025 ambulatory [facility] Facility: [facility] Start: 03-25-2025 Encounter for other preprocedural examination Edilma Ritter [facility] Start: 03-18-2025 End: 03-18-2025 ambulatory Rjsherwin Canales [place] Start: 03-13-2025 End: 03-13-2025 Emergency department patient visit Dr. Derek Sanchez MD Work Phone: -Emergency Department Work Phone: Start: 03-12-2025 End: 03-12-2025 ambulatory ILA CANALES Facility:[facility] Start: 01-24-2025 End: 01-26-2025 Refill Trini Blackburn DO Work Phone: [facility] ([facility]) Comment on above: Refill Request (Albu terol inhaler) Start: 11-22-2024 End: 11-22-2024 Telephone encounter Triin Blackburn DO Work Phone: [facility] ([facility]) Comment on above: Appointment (6 Month Follow up) Start: 10-07-2024 End: 10-07-2024 Emergency department patient visit Fernando Parra Facility:[facility] Start: 09-23-2024 End: 09-23-2024 Refill Trini Blackburn DO Work Phone: [facility] ([facility]) Comment on above: Refill Request (Well butrin. Advair) Start: 08-28-2024 End: 08-29-2024 ambulatory Trini Blackburn DO Work Phone: [facility] ([facility]) Start: 08-28-2024 End: 08-29-2024 Patient encounter procedure Trini Blackburn DO Work Phone: [facility] ([facility]) Comment on above: Inhaler Start: 08-26-2024 End: 08-27-2024 Telephone encounter Trini Blackburn DO Work Phone: [facility] ([facility]) Comment on above: Can Tender - O ther ([facility] - updated instructions) Start: 08-23-2024 End: 08-23-2024 Refill Benigno Nanceon DO Work Phone: [facility] ([facility]) Comment on above: Refill Request Returning Patient's Call Start: 08-21-2024 End: 08-21-2024 ambulatory Nigel Quezada [facility] Start: 08-21-2024 End: 08-21-2024 ambulatory Antelmo LOZANO [facility] Start: 08-21-2024 ambulatory Health Risk Assessment Facility:[facility] Start: 07-08-2024 End: 07-08-2024 Telephone encounter Benigno Carlotta DO Work Phone: [facility] ([facility]) Comment on above: Insurance Authorizat ion ([place] for albuterol inhaler) Start: 07-02-2024 End: 07-02-2024 Telephone encounter Trini Blackburn DO Work Phone: [facility] ([facility]) Comment on above: Referral Information (Cardiology) Start: 07-02-2024 End: 07-02-2024 Office outpatient new 30 minutes Trini Blackburn DO Work Phone: [facility] ([facility]) Comment on above: Depression, unspecif ied depression type (Primary Dx); Mild persistent asthma without complication; Obesity (BMI 30.0-34.9); Palpitations; Lightheadedness Start: 07-02-2024 End: 07-02-2024 ambulatory TRINI BLACKBURN Facility:[facility] Start: 02-12-2024 End: 02-12-2024 Telephone encounter Ila Canales MD Work Phone: [facility] Comment on above: Received Outside Med ical Records ([facility] 02/09) Start: 01-18-2024 Refill Ginny UMANZOR.HR PAYROLL COORDINATOR Work Phone: [facility] Comment on above: Refill Request Start: 01-16-2024 Chart abstracting [facility] Work Phone: Neurology Comment on above: PSG Check In Start: 01-13-2024 Refill Nancy LEONARD RN.HR PAYROLL COORDINATOR Work Phone: OB/Gynecology Comment on above: Refill Request Start: 01-10-2024 Telephone encounter Lidia mack RN Cardiology Lab Comment on above: Reminder Call Start: 12-21-2023 Telephone encounter Nancy rdz APRN.HR PAYROLL COORDINATOR Work Phone: OB/Gynecology Comment on above: Insurance Authorizat ion Start: 12-21-2023 End: 12-21-2023 Patient encounter procedure Nancy Viera APRN.HR PAYROLL COORDINATOR Work Phone: OB/Gynecology Comment on above: Gastroesophageal ref lux disease, unspecified whether esophagitis present (Primary Dx); Elevated LDL cholesterol level; Mild persistent asthma without complication; Vitamin D deficiency; Malaise and fatigue; Migraine with aura and without status migrainosus, not intractable; Craving for particular food; Class 1 obesity with body mass index (BMI) of 31.0 to 31.9 in adult, unspecified obesity type, unspecified whether serious comorbidity present Start: 12-14-2023 End: 12-14-2023 Patient encounter procedure Juan Manuel Gayle DO Work Phone: Cardiology Comment on above: Palpitations (Primar y Dx); Atypical chest pain; Systolic click; FINLEY (dyspnea on exertion); Daytime hypersomnolence Start: 12-14-2023 End: 12-14-2023 ambulatory ILA CANALES Facility:[facility] Start: 12-14-2023 Telephone encounter Juan Manuel Gayle DO Work Phone: Cardiology Comment on above: Appointment Start: 11-22-2023 Refill Ila burk MD Work Phone: [facility] Comment on above: Refill Request Start: 10-02-2023 Telephone encounter Keo Lozano i, MD Work Phone: Cardiology Comment on above: Appointment Start: 09-15-2023 End: 09-15-2023 Patient encounter procedure Nancy Viera APRN.HR PAYROLL COORDINATOR Work Phone: OB/Gynecology Comment on above: Encounter for gyneco logical examination (general) (routine) with abnormal findings (Primary Dx); Abdominal bloating; Vaginal discharge; Malaise and fatigue; Screening for cervical cancer; Encounter for screening for human papillomavirus (HPV); Encounter for screening mammogram for breast cancer; Screen for STD (sexually transmitted disease); Screening cholesterol level; Screening for deficiency anemia; Screening for diabetes mellitus; Screening for metabolic disorder; Screening for thyroid disorder; Encounter for vitamin deficiency screening; Class 1 obesity with body mass index (BMI) of 31.0 to 31.9 in adult, unspecified obesity type, unspecified whether serious comorbidity present Start: 09-15-2023 End: 09-15-2023 Patient encounter status Nancy Viera APRN.HR PAYROLL COORDINATOR Work Phone: [facility] Work Phone: Start: 08-22-2023 End: 08-22-2023 Patient encounter procedure Ila Canales MD Work Phone: [facility] Comment on above: Well adult exam ([facility] sofiya Dx); Mild persistent asthma without complication; Neck pain on left side; Cervicogenic headache; Palpitations; Atypical chest pain; Systolic click; Chronic foot pain, left; Tetanus-diphtheria (Td) vaccination Start: 08-22-2023 End: 08-22-2023 Patient encounter status Ila Canales MD Work Phone: [facility] Work Phone: Start: 08-10-2023 Documentation procedure Mammog jesu Coordinator [facility] Start: 08-10-2023 Letter encounter Mammography Coordinator [facility] Department Start: 08-09-2023 End: 08-09-2023 Subsequent hospital visit by physician Screen Mammo [facility] Mammogram Comment on above: Encounter for screen ing mammogram for breast cancer [Z12.31] Start: 08-02-2023 ambulatory Ila burk MD Work Phone: Internal Medicine Main [place] Start: 05-30-2023 End: 05-30-2023 Emergency department patient visit [facility] Work Phone: Start: 05-22-2023 End: 05-22-2023 Subsequent hospital visit by physician Xr [facility] Work Phone: Radiology Comment on above: Subacute cough [R05. 2] Start: 05-20-2023 End: 05-20-2023 Patient encounter procedure César Fernandez MD Work Phone: [facility] Comment on above: Subacute cough (Prim elisha Dx); Hemoptysis; Hoarse voice quality; Asthma with acute exacerbation, unspecified asthma severity, unspecified whether persistent; Acute non-recurrent sinusitis, unspecified location; Mild persistent asthma without complication Start: 05-06-2023 Refill Ila burk MD Work Phone: [facility] Comment on above: Refill Request Start: 04-12-2023 Telephone encounter Ila Canales MD Work Phone: [facility] Comment on above: Medication Request ( [facility] Al[facility] ) Start: 04-02-2023 End: 04-02-2023 Patient encounter procedure Aminah Yo PA-C Work Phone: [facility] Comment on above: LRTI (lower respirat ory tract infection) (Primary Dx) Start: 10-12-2022 Refill Ila burk MD Work Phone: [facility] Comment on above: Refill Request Start: 09-21-2022 Telephone encounter Aminah mulligan PA-C Work Phone: [facility] Comment on above: Results Start: 07-25-2022 End: 07-25-2022 Patient encounter procedure Ila Canales MD Work Phone: [facility] Comment on above: Well adult exam (Marge sofiya Dx); Mild persistent asthma without complication; Vaginal bacteriosis; Atypical chest pain; Adjustment disorder with mixed anxiety and depressed mood; Screening for lipid disorders; Obesity, Class I, BMI 30-34.9 Start: 07-25-2022 End: 07-25-2022 Patient encounter status Ila Canales MD Work Phone: [facility] Start: 06-27-2022 Telephone encounter Ginny Delong olaf REGIONAL SALES LEADER.HR PAYROLL COORDINATOR Work Phone: [facility] Comment on above: Results Start: 06-25-2022 Documentation procedure Mammog jesu Coordinator [facility] Start: 06-25-2022 Letter encounter Mammography Coordinator [facility] Department Start: 12-01-2021 ambulatory Ila burk MD Work Phone: Internal Medicine Main [place] Start: 11-15-2021 End: 11-15-2021 Subsequent hospital visit by physician [facility] (I-Stat) Work Phone: Cat Scan Comment on above: Recurrent UTI (urina ry tract infection) [N39.0] Procedures Date Procedure Procedure Detail Performing Clinician Start: 03-13-2025 Urnls dip stick/tabl et reagent auto microscopy Dr. Derek Sanchez MD Work Phone: Start: 03-13-[address] Derek Sanchez MD Work Phone: Start: 03-13-2025 Ct abdomen & pelvis w/contrast material Dr. Derek Sanchez MD Work Phone: Start: 08-22-2023 Adult depression screening assessment Trini Blackburn DO Work Phone: Start: 05-30-2023 SARS-CoV-2 & FLU Ant igen (Rapid) Start: 05-30-2023 Plain chest X-ray Start: 05-30-2023 X-ray of soft tissue of neck Start: 05-22-2023 Radiologic exam ches t 2 views César Fernandez MD Work Phone: Start: 07-25-2022 Ecg routine ecg w/le ast 12 lds i&r only [facility] Provider Start: 06-24-2022 Mammography Mammograph y Coordinator Start: 11-15-2021 Ct abdomen & pelvis w/o contrast material Dilip Loving PA-C Work Phone: Start: 07-01-2021 Adult depression screening assessment Ct (I-Stat) Work Phone: Plan of Treatment Date Care Activity Detail Author Start: 08-21-2033 Urine microalbumin profile DTaP,Tdap,Td Vaccine (3 - Td or Tdap) [facility] Start: 09-14-2028 Screening for malign ant neoplasm of cervix [facility] Start: 07-02-2025 Annual PCP Team Process Coordinator jane Disease Visit Annual PCP Team Chronic Disease Visit [facility] Start: 02-03-2025 Influenza vaccination [facility] Start: 01-31-2025 End: 01-31-2025 Patient encounter procedure 01/31/2025 11:20 AM EDT [facility] Internal [facility] ([facility]) [address] [facility] [address]LO[address] [place], [place] [id number] Trini Blackburn DO [address] [place], [place] [phone] [facility] Internal [facility] ([facility]) Comment on above: Overall health Start: 09-17-2024 End: 09-17-2024 Patient encounter procedure 09/17/2024 9:00 AM EDT Office Visit OB/Gynecology [address] [place], [place] [phone] Nancy Viera APRN.HR PAYROLL COORDINATOR [address] [place], [place] [id number] Annual OB/Gynecology Comment on above: Annual Start: 08-21-2024 Annual PCP Team Process Coordinator jane Disease Visit Annual PCP Team Chronic Disease Visit [facility] Start: 08-21-2024 Anxiety Screening Anxiety Screening [facility] Start: 08-21-2024 Depression Screening Depression Scre ening [facility] Start: 08-08-2024 End: 10-14-2024 MG Breast Screening [facility] SCREENING Radiology Routine Encounter for screening mammogram for breast cancer Expected: 08/08/2024 (Approximate), Expires: 10/14/2024 [facility] Work Phone: Comment on above: Expected: 08/08/2024 (Approximate), Expires: 10/14/2024 Start: 08-08-2024 Screening for malign ant neoplasm of breast Mammogram Screening [facility] Start: 08-08-2024 End: 08-08-2024 Patient encounter procedure 08/08/2024 7:50 AM EST Appointment Mammogram [address] [place], [place] [phone] Mammogram Start: 02-29-2024 End: 02-29-2024 Patient encounter procedure 02/29/2024 9:20 AM EDT Office Visit [address] [place], [place] [phone] Ila Canales MD [address] [facility] [address] [place], [place] [id number] 6 month follow up [facility] Comment on above: 6 month follow up Start: 02-14-2024 End: 02-14-2024 Patient encounter procedure 02/14/2024 9:00 PM EDT Office Visit Neurology [address] [place] [address] Palpitations [R00.2]; Atypical chest pain [R07.89]; Systolic click [R01.1]; Daytime hypersomnolence [G47.19] Neurology Comment on above: Palpitations [R00.2] ; Atypical chest pain [R07.89]; Systolic click [R01.1]; Daytime hypersomnolence [G47.19] Start: 02-07-2024 End: 02-07-2024 Patient encounter procedure 02/07/2024 7:30 AM EDT Office Visit OB/Gynecology [address] [place], [place] [phone] Nancy Viera APRN.HR PAYROLL COORDINATOR [address] [place], [place] [phone] wt mgmt f/u OB/Gynecology Comment on above: wt mgmt f/u Start: 02-04-2024 Covid-19 Vaccine () Covid-19 Vaccine () [facility] Start: 02-04-2024 Covid-19 Vaccine ( season) Covid-19 Vaccine () [facility] Start: 02-04-2024 Influenza vaccination [facility] Start: 01-11-2024 Subsequent hospital visit by physician 01/11/2024 8:00 AM EDT Hospital Encounter Cardiology Lab [address] [place] [address] Palpitations [R00.2] Cardiology Lab Comment on above: Palpitations [R00.2] Start: 01-11-2024 End: 01-11-2024 Patient encounter procedure Cardiology Lab Comment on above: Palpitations [R00.2] Start: 12-21-2023 End: 12-21-2023 Patient encounter procedure 12/21/2023 8:00 AM EDT Office Visit OB/Gynecology [address] [place], [place] [phone] Nancy Viera APRN.HR PAYROLL COORDINATOR [address] [place] [address] New wt mgmt consult OB/Gynecology Comment on above: New wt mgmt consult Start: 12-14-2023 End: 12-14-2023 Patient encounter procedure 12/14/2023 3:00 PM EDT Office Visit Cardiology [address] [place] [address] Juan Manuel Gayle DO [address] [place] [address] Palpitations [R00.2]; Atypical chest pain [R07.89]; Systolic click [R01.1] Cardiology Comment on above: Palpitations [R00.2] ; Atypical chest pain [R07.89]; Systolic click [R01.1] Start: 10-19-2023 End: 10-19-2023 Patient encounter procedure 10/19/2023 1:30 PM EDT Office Visit Podiatry [address] [place], [place] [phone] Benigno Liao [address] [facility] [place] [address] pt getting xray prior to visit Chronic foot pain, left [M79.672, G89.29] Podiatry Comment on above: pt getting xray p rior to visit Chronic foot pain, left [M79.672, G89.29] Start: 09-15-2023 End: 12-15-2023 25-hydroxyvitamin D3 [Mass/volume] in Serum or Plasma VITAMIN D 25 HYDROXY Lab Routine Class 1 obesity with body mass index (BMI) of 31.0 to 31.9 in adult, unspecified obesity type, unspecified whether serious comorbidity present Encounter for vitamin deficiency screening Malaise and fatigue Expected: 09/15/2023, Expires: 12/15/2023 [facility] Work Phone: Comment on above: Expected: 09/15/2023 , Expires: 12/15/2023 Start: 09-15-2023 End: 12-15-2023 CBC panel - Blood by Automated count COMPLETE BLOOD COUNT Lab Routine Class 1 obesity with body mass index (BMI) of 31.0 to 31.9 in adult, unspecified obesity type, unspecified whether serious comorbidity present Screening for deficiency anemia Expected: 09/15/2023, Expires: 12/15/2023 [facility] Work Phone: Comment on above: Expected: 09/15/2023 , Expires: 12/15/2023 Start: 09-15-2023 End: 12-15-2023 Comprehensive metabolic 2000 panel - Serum or Plasma COMPREHENSIVE METABOLIC PANEL Lab Routine Class 1 obesity with body mass index (BMI) of 31.0 to 31.9 in adult, unspecified obesity type, unspecified whether serious comorbidity present Screening for diabetes mellitus Screening for metabolic disorder Expected: 09/15/2023, Expires: 12/15/2023 [facility] Work Phone: Comment on above: Expected: 09/15/2023 , Expires: 12/15/2023 Start: 09-15-2023 End: 12-15-2023 Hemoglobin A1c in Blood HEMOGLOBIN A1C Lab Routine Class 1 obesity with body mass index (BMI) of 31.0 to 31.9 in adult, unspecified obesity type, unspecified whether serious comorbidity present Screening for diabetes mellitus Expected: 09/15/2023, Expires: 12/15/2023 [facility] Work Phone: Comment on above: Expected: 09/15/2023 , Expires: 12/15/2023 Start: 09-15-2023 End: 12-15-2023 Insulin [Units/volume] in Serum or Plasma INSULIN ASSAY BLOOD Lab Routine Class 1 obesity with body mass index (BMI) of 31.0 to 31.9 in adult, unspecified obesity type, unspecified whether serious comorbidity present Screening for diabetes mellitus Expected: 09/15/2023, Expires: 12/15/2023 [facility] Work Phone: Comment on above: Expected: 09/15/2023 , Expires: 12/15/2023 Start: 09-15-2023 End: 12-15-2023 Lipid 1996 panel - Serum or Plasma LIPID PANEL BASIC Lab Routine Class 1 obesity with body mass index (BMI) of 31.0 to 31.9 in adult, unspecified obesity type, unspecified whether serious comorbidity present Screening cholesterol level Expected: 09/15/2023, Expires: 12/15/2023 [facility] Work Phone: Comment on above: Expected: 09/15/2023 , Expires: 12/15/2023 Start: 09-15-2023 End: 12-15-2023 Thyrotropin [Units/volume] in Serum or Plasma THYROID STIMULATING HORMONE Lab Routine Class 1 obesity with body mass index (BMI) of 31.0 to 31.9 in adult, unspecified obesity type, unspecified whether serious comorbidity present Screening for thyroid disorder Malaise and fatigue Expected: 09/15/2023, Expires: 12/15/2023 [facility] Work Phone: Comment on above: Expected: 09/15/2023 , Expires: 12/15/2023 Start: 07-25-2023 ANNUAL PCP TEAM AUTOMATIC BEAM WARPER TENDER JANE DISEASE VISIT ANNUAL PCP TEAM CHRONIC DISEASE VISIT [facility] Start: 07-25-2023 COVID-19 VACCINE (3 - Booster for Moderna series) COVID-19 VACCINE (3 - Booster for Moderna series) [facility] Comment on above: Postponed from 10/14 (Declined at this time) Start: 07-25-2023 PNEUMOCOCCAL (2 - PCV) PNEUMOCOCCAL (2 - PCV) [facility] Comment on above: Postponed from 06/17 (Declined at this time) Start: 07-25-2023 Pneumococcal vaccination [facility] Comment on above: Postponed from 06/17 (Declined at this time) Start: 07-25-2023 Urine microalbumin profile [facility] Comment on above: Postponed from 07/12 (Declined at this time) Start: 06-24-2023 Mammography [facility] Start: 06-24-2023 Screening for malign ant neoplasm of breast Mammogram Screening [facility] Start: 06-05-2023 Behavioral Health Screening Behavioral Health Screening [facility] Start: 06-05-2023 Depression Assessment Depression Ass essment [facility] Start: 05-30-2023 [facility] Start: 02-08-2023 HPV TESTING HPV TESTING [facility] Start: 02-08-2023 PAP TESTING PAP TESTING [facility] Start: 02-08-2023 Screening for malign ant neoplasm of cervix [facility] Start: 02-03-2023 Covid-19 Vaccine ( season) Covid-19 Vaccine ( season) [facility] Start: 02-03-2023 Influenza vaccination [facility] Start: 12-02-2022 Influenza vaccination INFLUENZA (#1) [facility] Comment on above: Postponed from 02/03 (Declined at this time) Start: 07-25-2022 End: 09-24-2022 CBC panel - Blood by Automated count CBC Lab Routine Atypical chest pain Expected: 07/25/2022, Expires: 09/24/2022 [facility] Work Phone: Comment on above: Expected: 07/25/2022 , Expires: 09/24/2022 Start: 07-25-2022 End: 09-24-2022 Comprehensive metabolic 2000 panel - Serum or Plasma COMP METABOLIC PANEL Lab Routine Atypical chest pain Expected: 07/25/2022, Expires: 09/24/2022 [facility] Work Phone: Comment on above: Expected: 07/25/2022 , Expires: 09/24/2022 Start: 07-25-2022 End: 09-24-2022 Lipid 1996 panel - Serum or Plasma LIPID PANEL BASIC Lab Routine Screening for lipid disorders Expected: 07/25/2022, Expires: 09/24/2022 [facility] Work Phone: Comment on above: Expected: 07/25/2022 , Expires: 09/24/2022 Start: 07-25-2022 End: 09-24-2022 Thyrotropin [Units/volume] in Serum or Plasma TSH BLD Lab Routine Atypical chest pain Adjustment disorder with mixed anxiety and depressed mood Expected: 07/25/2022, Expires: 09/24/2022 [facility] Work Phone: Comment on above: Expected: 07/25/2022 , Expires: 09/24/2022 Start: 07-01-2022 Adult depression screening assessment DEPRESSION SCREENING [facility] Start: 07-01-2022 ANNUAL PCP TEAM AUTOMATIC BEAM WARPER TENDER JANE DISEASE VISIT ANNUAL PCP TEAM CHRONIC DISEASE VISIT [facility] Start: 06-05-2022 DEPRESSION ASSESSMENT DEPRESSION ASS ESSMENT [facility] Start: 02-03-2022 Influenza vaccination [facility] Start: 01-19-2022 COVID-19 VACCINE (3 - Booster for Moderna series) COVID-19 VACCINE (3 - Booster for Moderna series) [facility] Start: 10-14-2021 COVID-19 VACCINE (3 - Booster for Moderna series) COVID-19 VACCINE (3 - Booster for Moderna series) [facility] Start: 2020 Mammography MAMMOGRAM [facility] Start: 07-12-2020 Urine microalbumin profile [facility] Start: 06-17-2012 PNEUMOCOCCAL (2 - PCV) PNEUMOCOCCAL (2 - PCV) [facility] Start: 09-13-2007 HPV Vaccine (1 - 3-d ose SCDM series) HPV Vaccine (1 - 3-dose SCDM series) [facility] [facility] Start: 09-13-1999 Hepatitis B Vaccine (1 of 3 - 19+ 3-dose series) Hepatitis B Vaccine (1 of 3 - 19+ 3-dose series) [facility] Start: 1998 Anxiety Screening Anxiety Screening [facility] Start: 1998 Depression Screening Depression Scre ening [facility] Start: 1998 SPIROMETRY SPIROMETRY [facility] Start: 1980 HEPATITIS B (1 of 3 - 3-dose series) HEPATITIS B (1 of 3 - 3-dose series) [facility] Start: 1980 Hepatitis B Vaccine (1 of 3 - 3-dose series) Hepatitis B Vaccine (1 of 3 - 3-dose series) [facility] BACTERIAL VAGINOSIS NAAT BACTERI AL VAGINOSIS NAAT Lab Routine Vaginal discharge Abdominal bloating 09/15/2023 12:22 PM EDT [facility] Work Phone: ROXANNE/TRICHOMONAS NAAT ROXANNE /TRICHOMONAS NAAT Lab Routine Vaginal discharge Abdominal bloating 09/15/2023 12:22 PM EDT [facility] Work Phone: Chlamydia trachomatis+Neisseria gonorrhoeae DNA [Presence] in Unspecified specimen by VIV with probe detection GONORRHEA/CHLAMYDIA NAAT Lab Routine Screen for STD (sexually transmitted disease) 09/15/2023 12:22 PM EDT [facility] Work Phone: End: 07-27-2023 Diagnostic mammography computer-aided detcj uni [facility] DIAGNOSTIC LT Radiology Routine Inconclusive mammogram 1 Occurrences starting 06/27/2022 until 07/27/2023 [facility] Work Phone: Comment on above: 1 Occurrences starti ng 06/27/2022 until 07/27/2023 ECG COMPLETE [facility] Work Phone: Comment on above: Ordered: 07/25/2022 End: 12-13-2024 Echocardiography ECHO Cardiology Routine Palpitations Atypical chest pain Systolic click Daytime hypersomnolence 1 Occurrences starting 12/14/2023 until 12/13/2024 [facility] Work Phone: Comment on above: 1 Occurrences starti ng 12/14/2023 until 12/13/2024 End: 12-13-2024 EXERCISE STRESS ECG (WITHOUT IMAGING) EXERCISE STRESS ECG (WITHOUT IMAGING) Cardiology Routine Palpitations Atypical chest pain Systolic click Daytime hypersomnolence 1 Occurrences starting 12/14/2023 until 12/13/2024 [facility] Comment on above: 1 Occurrences starti ng 12/14/2023 until 12/13/2024 End: 08-31-2024 MG Breast Screening PERCY SCREENING Radiology Routine Encounter for screening mammogram for breast cancer 1 Occurrences starting 08/02/2023 until 08/31/2024 [facility] Work Phone: Comment on above: 1 Occurrences starti ng 08/02/2023 until 08/31/2024 MG Breast Screening PERCY SCREENIN G Radiology Routine Encounter for screening mammogram for breast cancer 08/09/2023 1:42 PM EST [facility] Work Phone: OUTSIDE VENDOR CARDI AC OUTPATIENT EXTENDED RHYTHM RECORDING (WITHOUT TELEMETRY) OUTSIDE VENDOR CARDIAC OUTPATIENT EXTENDED RHYTHM RECORDING (WITHOUT TELEMETRY) Holter Routine Palpitations Atypical chest pain Systolic click Daytime hypersomnolence Ordered: 12/14/2023 [facility] Comment on above: Ordered: 12/14/2023 PAP TEST PAP TEST Lab Lou welch Encounter for gynecological examination (general) (routine) with abnormal findings Screening for cervical cancer Encounter for screening for human papillomavirus (HPV) 09/15/2023 12:22 PM EDT [facility] Work Phone: Patient Education [facility] Work Phone: Patient referral [facility] Work Phone: End: 12-13-2024 Polysomnogram POLYSOMNOGRAM (PSG) Procedures Routine Palpitations Atypical chest pain Systolic click Daytime hypersomnolence 1 Occurrences starting 12/14/2023 until 12/13/2024 [facility] Comment on above: 1 Occurrences starti ng 12/14/2023 until 12/13/2024 End: 06-18-2024 Radiologic exam chest 2 views XR CHEST 2V FRONTAL/LAT Radiology Routine Subacute cough Hemoptysis 1 Occurrences starting 05/20/2023 until 06/18/2024 [facility] Work Phone: Comment on above: 1 Occurrences starti ng 05/20/2023 until 06/18/2024 End: 12-31-2022 Screening mammography bi 2-view breast inc cad PERCY SCREENING Radiology Routine Encounter for screening mammogram for breast cancer 1 Occurrences starting 12/01/2021 until 12/31/2022 [facility] Work Phone: Comment on above: 1 Occurrences starti ng 12/01/2021 until 12/31/2022 End: 08-01-2025 SPIROMETRY - BASELINE AND POST DILATOR SPIROMETRY - BASELINE AND POST DILATOR PFT Routine Mild persistent asthma without complication 1 Occurrences starting 07/02/2024 until 08/01/2025 [facility] Work Phone: Comment on above: 1 Occurrences starti ng 07/02/2024 until 08/01/2025 End: 07-27-2023 Us breast uni real time with image limited US BREAST LTD LT Radiology Routine Inconclusive mammogram 1 Occurrences starting 06/27/2022 until 07/27/2023 [facility] Work Phone: Comment on above: 1 Occurrences starti ng 06/27/2022 until 07/27/2023 End: 09-20-2024 XR Foot - left AP and Lateral and oblique XR FOOT GENERAL 3V AP/LAT/OBL LEFT Radiology Routine Chronic foot pain, left 1 Occurrences starting 08/22/2023 until 09/20/2024 [facility] Work Phone: Comment on above: 1 Occurrences starti ng 08/22/2023 until 09/20/2024 [facility] Immunizations Immunization Date Immunization Notes Care Provider [facility] 08-22-2023 tetanus and diphther ia toxoids, adsorbed, preservative free, for adult use (2 Lf of tetanus toxoid and 2 Lf of diphtheria toxoid) Dr. Derek Sanchez MD Work Phone: [facility] 08-22-2023 tetanus and diphther ia toxoids, adsorbed, preservative free, for adult use (5 Lf of tetanus toxoid and 2 Lf of diphtheria toxoid) Ila Canales MD Work Phone: [facility] 08-22-2023 TD(adult) unspecifie d formulation Ila Canales MD Work Phone: [facility] Work Phone: 08-19-2021 Covid (Moderna) Dr. Derek brown MD Work Phone: [facility] 02-02-2021 Covid (Moderna) Dr. Derek brown MD Work Phone: [facility] 02-28-2019 influenza, injectabl e, quadrivalent, preservative free [facility] 02-28-2019 influenza virus vacc ine, unspecified formulation Ila Canales MD Work Phone: [facility] 03-06-2018 influenza, injectabl e, quadrivalent, preservative free Ct (I-Stat) Work Phone: [facility] 03-06-2018 influenza virus vacc ine, unspecified formulation Aminah Yo PA-C Work Phone: [facility] 01-23-2018 measles, mumps and rubella virus vaccine Ct (I-Stat) Work Phone: [facility] 06-17-2011 pneumococcal polysaccharide vaccine, [address] (I-Stat) Work Phone: [facility] 07-12-2010 tetanus toxoid, redu betty diphtheria toxoid, and acellular pertussis vaccine, adsorbed Ct (I-Stat) Work Phone: [facility] 05-12-2009 novel influenza-H1N1 -09, preservative-free, injectable Ct (I-Stat) Work Phone: [facility] Payers Date Payer Category Payer Unknown [id number] 2024 Medicaid [id number] 2024 Self-pay [id number] 2024 [facility] Health [facility] [id number] 2024 Unknown [id number] 2021 Unknown MMO MMO [employer] [id number] 2021-Present [phone] [address] [place] [address] PPO [id number] 2021 Unknown [id number] 2021 Unknown [id number] 2013 Medicaid [employer] [id number] 2013-Present [phone] [address] [place] [address] Medicaid [id number] 2013 Medicaid [id number] Unknown [id number] Unknown [id number] Unknown [id number] Unknown [id number] Unknown [id number] Unknown [id number] Unknown [id number] Unknown [id number] Unknown [id number] Social History Date Type Detail Facility Start: 08-27-2014 End: 07-02-2024 Tobacco smoking status NHIS Ex-smoker [facility] Start: 05-05-2004 End: 05-05-2014 History of tobacco use Current smoker [facility] Start: 05-05-2004 End: 05-05-2014 History of tobacco use Cigarette Smoker [facility] Start: 08-27-2014 End: 06-13-2023 Cigarettes smoked current (pack per day) - Reported 0.5 [facility] Work Phone: Start: 08-27-2014 End: 07-02-2024 Tobacco use and exposure Smokeless tobacco non-user [facility] Start: 11-05-2021 End: 07-02-2024 Alcohol intake Current drinker of alcohol (finding) [facility] Start: 07-01-2011 History SDOH Alcohol Comment socially, rare [facility] Start: 1980 Sex Assigned At Not on file [facility] Start: 10-26-2021 End: 11-05-2021 Exposure to SARS-CoV-2 (event) Not sure [facility] Start: 04-02-2023 End: 06-13-2023 Tobacco use panel [facility] Work Phone: Start: 05-06-2012 Adult Depression Screening Assessment 5 [facility] Work Phone: Start: 05-30-2023 [facility] Start: 01-31-2019 With Family Evelyn Pina [facility] Start: 1980 Sex Assigned At [facility] Start: 03-13-2025 [facility] Medical Equipment Procedure Code Equipment Code Equipment Original Text Equipment Identifier Dates Dev Cncptv Essur e Perm - [id number] Start: 07-12-2011 Comment on above: Description: ESSURE CONTRACEPTIVE DEVICE Goals Date Patient Goal Desired Activity /State Personal health goal Functional Status Date Assessment Result Facility 12-09-2014 Are you deaf, or do you have serious difficulty hearing No 12/09/2014 12:47 PM EDT Elisa Egan Ma [facility] 12-09-2014 Are you blind, or do you have serious difficulty seeing, even when wearing glasses No 12/09/2014 12:47 PM EDT Elisa Egan Ma [facility] 12-09-2014 Do you have serious difficulty walking or climbing stairs No 12/09/2014 12:47 PM EDT Elisa Egan Ma [facility]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 the result of excess weight on the joints. Gout, another disease affecting the joints Pulmonary (breathing) problems, including sleep apnea in which a person can stop breathing for a short time during sleep Reproductive problems in women, including menstrual irregularities and infertility Gastroesophageal reflux/heartburn Hypertension Heart Disease Depression Psychological disorders/social impairments Urinary Stress Incontinence Obesity is also linked to higher rates of certain types of cancer. Obese men are more likely than non-obese men to from cancer of the colon, rectum, or prostate. Obese women are more likely than non-obese women to from cancer of the gallbladder, breast, uterus, cervix, or ovaries https://my.[facility].org/healt h/diseases/00439-eqwypg-aijcicokcf-j atient-education - Eat primarily whole foods. Limit carbs, especially processed carbs. Eat - Meat, vegetables and fruits with skin on if possible, eggs, cheese. - Do not drink your calories - 30 grams of protein for your first meal of the day decreases your hunger during the day by up to 40 %. Options include: Premier Protein or generic 30 gm protein 1 gm sugar or 5 eggs or 2-3 eggs and some unbreaded meat and/or cheese. No fruit, vegetables, bread, grain, yogurt, Smoothies, etc. - Walk for 15 minutes immediately after meal. METFORMIN Dosing -- Begin Metformin 500 mg with dinner daily x 1 week. If you are experiencing any GI side effects, do not increase dose for 1-4 weeks. If tolerating, you can increase to 2 tablets with dinner daily. Taking the medication with food will help. -- if you experience any GI upset (Nausea, diarrhea, bloating, gas) you can go back to 1 tablet or hold the medication until it resolves. Once you are tolerating the medication you can try increasing it again. -- we can discuss increasing the dose further at your follow up visit. -- Metformin can interfere with the absorption of B12 in your food, please add a B12 1,000-2,400 mcg supplement and I suggest having it checked every 1-2 years Using Metformin for weight loss: Metformin helps to lower blood glucose levels by reducing the amount of glucose produced and released by the liver, and by increasing insulin sensitivity. It has now been proven to prevent or delay diabetes. Metformin and Type 2 Diabetes Prevention Diabetes Spectrum (diabetesjournals.org) Large cohort studies have shown weight loss benefits associated with metformin therapy. Emerging evidence suggests that metformin-associated weight loss is due to modulation of hypothalamic appetite-regulatory centers, alteration in the gut microbiome, and reversal of consequences of aging. Metformin is also being explored in the management of obesity s sequelae such as hepatic steatosis, obstructive sleep apnea and osteoarthritis. Effectiveness of metformin on weight loss in non-diabetic individuals with obesity - PubMed (nih.gov) Is metformin a wonder drug? - [facility] Common side effects of this medication include nausea, changes in bowel habits, abdominal discomfort, and flatulence. Taking the medication with food will help. Side effects also typically get better with time. Rarely, a severe side effect called lactic acidosis can occur. If you experience malaise, muscle aches, difficulty breathing, or severe abdominal pain, please seek immediate medical attention. Metformin: Patient drug information Warning Rarely, metformin may cause too much lactic acid in the blood (lactic acidosis). The risk is higher in people who have kidney problems, liver problems, heart failure, use alcohol, or take other drugs like topiramate. The risk is also higher in people who are 65 or older and in people who are having surgery, an exam or test with contrast, or other procedures. If lactic acidosis happens, it can lead to other health problems and can be deadly. Kidney tests may be done while taking this drug. Do not take this drug if you have a very bad infection, low oxygen, or a lot of fluid loss (dehydration). Call your doctor right away if you have signs of too much lactic acid in the blood (lactic acidosis) like fast breathing, fast or slow heartbeat, a heartbeat that does not feel normal, very bad upset stomach or throwing up, feeling very sleepy, shortness of breath, feeling very tired or weak, very bad dizziness, feeling cold, or muscle pain or cramps. What is this drug used for? It is used to lower blood sugar in patients with high blood sugar (diabetes), treatment for PCOS, What do I need to tell my doctor BEFORE I take this drug? If you are allergic to this drug; any part of this drug; or any other drugs, foods, or substances. Tell your doctor about the allergy and what signs you had. If you have any of these health problems: Acidic blood problem, kidney disease, or liver disease. If you have had a recent heart attack or stroke. If you are not able to eat or drink like normal, including before certain procedures or surgery. If you are having an exam or test with contrast or have had one within the past 48 hours, talk with your doctor. This is not a list of all drugs or health problems that interact with this drug. Tell your doctor and pharmacist about all of your drugs (prescription or OTC, natural products, vitamins) and health problems. You must check to make sure that it is safe for you to take this drug with all of your drugs and health problems. Do not start, stop, or change the dose of any drug without checking with your doctor. What are some things I need to know or do while I take this drug? All products: Tell all of your health care providers that you take this drug. This includes your doctors, nurses, pharmacists, and dentists. Talk with your doctor before you drink alcohol. Do not drive if your blood sugar has been low. There is a greater chance of you having a crash. Check your blood sugar as you have been told by your doctor. Have blood work checked as you have been told by the doctor. Talk with the doctor. It may be harder to control blood sugar during times of stress such as fever, infection, injury, or surgery. A change in physical activity, exercise, or diet may also affect blood sugar. Follow the diet and workout plan that your doctor told you about. If diarrhea happens or you are throwing up, call your doctor. You will need to drink more fluids to keep from losing too much fluid. Be careful in hot weather or while being active. Drink lots of fluids to stop fluid loss. Long-term treatment with metformin may lead to low vitamin B-12 levels. If you have ever had low vitamin B-12 levels, talk with your doctor. If you are 65 or older, use this drug with care. You could have more side effects. There is a chance of in people of childbearing age who have not been ovulating. If you want to avoid , use control while taking this drug. Tell your doctor if you are , plan on getting , or are breast-feeding. You will need to talk about the benefits and risks to you and the baby. What are some side effects that I need to call my doctor about right away? WARNING/CAUTION: Even though it may be rare, some people may have very bad and sometimes deadly side effects when taking a drug. Tell your doctor or get medical help right away if you have any of the following signs or symptoms that may be related to a very bad side effect: Signs of an allergic reaction, like rash; hives; itching; red, swollen, blistered, or peeling skin with or without fever; wheezing; tightness in the chest or throat; trouble breathing, swallowing, or talking; unusual hoarseness; or swelling of the mouth, face, lips, tongue, or throat. It is common to have stomach problems like upset stomach, throwing up, or diarrhea when you start taking this drug. If you have stomach problems later during treatment, call your doctor right away. This may be a sign of an acid health problem in the blood (lactic acidosis). Low blood sugar can happen. The chance may be raised when this drug is used with other drugs for diabetes. Signs may be dizziness, headache, feeling sleepy or weak, shaking, fast heartbeat, confusion, hunger, or sweating. Call your doctor right away if you have any of these signs. Follow what you have been told to do for low blood sugar. This may include taking glucose tablets, liquid glucose, or some fruit juices. What are some other side effects of this drug? All drugs may cause side effects. However, many people have no side effects or only have minor side effects. Call your doctor or get medical help if any of these side effects or any other side effects bother you or do not go away: Stomach pain or heartburn. Gas. Diarrhea, upset stomach, or throwing up. Feeling tired or weak. Headache. These are not all of the side effects that may occur. If you have questions about side effects, call your doctor. Call your doctor for medical advice about side effects. You may report side effects to your national health agency. How is this drug best taken? Use this drug as ordered by your doctor. Read all information given to you. Follow all instructions closely. All products: Take with meals. Keep taking this drug as you have been told by your doctor or other health care provider, even if you feel well. AM PM (early afternoon) Week 1 Bupropion SR 150 mg (1 tablet) None Week 2 Bupropion SR 150 mg (1 tablet) Bupropion SR 150 mg (1 tablet) Bupropion is a medicine that is used to treat depression and to prevent weight gain in people who are trying to quit smoking. -- avoid caffeinated beverages (i.e. coffee, tea, sports-drinks, etc) and be aware of the stimulant effects of inhalers, decongestants, etc. -- Take 1 tablet in the morning for 1-2 weeks, then increase to 1 tablet 2 times per day (in the morning and early afternoon). If you experience any adverse side effects you may decrease or stop at anytime. If you take it too late in the afternoon it may cause insomnia. Does Wellbutrin cause weight loss? It can. Bupropion (the generic form of Wellbutrin) was initially prescribed as an antidepressant. It is the only antidepressant associated with weight loss (Joce, 2019). Healthcare providers noticed that mostly pleasant side effect, and today bupropion is sometimes prescribed as part of a medication for weight loss (naltrexone/bupropion, brand name Contrave), as well as a stop-smoking aid (brand name Zyban). As far as the evidence that bupropion by itself causes weight loss: A 2016 study that analyzed the long-term weight loss effect of various antidepressant medications found that non-smokers who took bupropion lost 7.1 pounds over two years. (This effect was not seen in smokers). Users of the other antidepressants in the study gained weight (Lorin, 2016). Bupropion seems to be effective for weight-loss maintenance as well. A 2012 study found that obese adults who took bupropion SR (standard release) in 300mg or 400mg doses lost 7.2% and 10% of their body weight, respectively, over 24 weeks and maintained that weight loss at 48 weeks (Reza, 2012). And a 2019 review of 27 studies on antidepressants and weight gain found that antidepressant use increases body weight by an average of 5%--except bupropion, which is associated with weight loss (Joce, 2019). https://ro.co/health-guide/wellbutri h-avy-bgkmna-loss/ Bupropion: Patient drug information Access [employer] for additional drug information, tools, and databases. Copyright 1975-1897 [employer]. All rights reserved. Contributor Disclosures (For additional information see "Bupropion: Drug information" and see "Bupropion: Pediatric drug information") You must carefully read the Consumer Information Use and Disclaimer" below in order to understand and correctly use this information. Brand Names: US Aplenzin; Forfivo XL; Wellbutrin SR; Wellbutrin XL; Zyban [DSC] Brand Names: [place] MYLAN-BuPROPion XL; ODAN Bupropion SR; PMS-BuPROPion SR [DSC]; TARO-Bupropion XL; TEVA-Bupropion XL; Wellbutrin SR; Wellbutrin XL; Zyban Warning Drugs like this one have raised the chance of suicidal thoughts or actions in children and young adults. The risk may be greater in people who have had these thoughts or actions in the past. All people who take this drug need to be watched closely. Call the doctor right away if signs like low mood (depression), nervousness, restlessness, grouchiness, panic attacks, or changes in mood or actions are new or worse. Call the doctor right away if any thoughts or actions of suicide occur. What is this drug used for? It is used to treat low mood (depression). It is used to prevent seasonal affective disorder (SAD). It is used to help you stop smoking. It may be given to you for other reasons. Talk with the doctor. What do I need to tell my doctor BEFORE I take this drug? If you are allergic to this drug; any part of this drug; or any other drugs, foods, or substances. Tell your doctor about the allergy and what signs you had. If you have ever had seizures. If you drink a lot of alcohol and you stop drinking all of a sudden. If you use certain other drugs like drugs for seizures or anxiety and you stop using them all of a sudden. If you have ever had an eating problem like anorexia or bulimia. If you have any of these health problems: Kidney disease or liver disease. If you have taken certain drugs for depression or Parkinson's disease in the last 14 days. This includes isocarboxazid, phenelzine, tranylcypromine, selegiline, or rasagiline. Very high blood pressure may happen. If you are taking any of these drugs: Linezolid or methylene blue. If you are taking another drug that has the same drug in it. This is not a list of all drugs or health problems that interact with this drug. Tell your doctor and pharmacist about all of your drugs (prescription or OTC, natural products, vitamins) and health problems. You must check to make sure that it is safe for you to take this drug with all of your drugs and health problems. Do not start, stop, or change the dose of any drug without checking with your doctor. What are some things I need to know or do while I take this drug? For all patients taking this drug: Tell all of your health care providers that you take this drug. This includes your doctors, nurses, pharmacists, and dentists. Avoid driving and doing other tasks or actions that call for you to be alert or have clear eyesight until you see how this drug affects you. This drug may affect certain lab tests. Tell all of your health care providers and lab workers that you take this drug. Do not stop taking this drug all of a sudden without calling your doctor. You may have a greater risk of side effects. If you need to stop this drug, you will want to slowly stop it as ordered by your doctor. High blood pressure has happened with this drug. Have your blood pressure checked as you have been told by your doctor. This drug may raise the chance of seizures. The risk may be higher in people who take higher doses, have certain health problems, or take certain other drugs. People who suddenly stop drinking a lot of alcohol or suddenly stop taking certain drugs (like drugs used for anxiety, sleep, or seizures) may also have a higher risk. Talk to your doctor to see if you have a greater chance of seizures. Avoid drinking alcohol while taking this drug. Talk with your doctor before you use marijuana, other forms of cannabis, or prescription or OTC drugs that may slow your actions. It may take several weeks to see the full effects. This drug is not approved for use in children. Talk with the doctor. If you are 65 or older, use this drug with care. You could have more side effects. Tell your doctor if you are , plan on getting , or are breast-feeding. You will need to talk about the benefits and risks to you and the baby. If you smoke: Not all products are approved for use to help stop smoking. Talk with the doctor to make sure that you have the right product. New or worse mental, mood, or behavior problems have happened when bupropion has been used to stop smoking. These problems include thoughts of suicide or murder, depression, forceful actions, fury, anxiety, and anger. These problems have happened in people with and without a history of mental or mood problems. Talk with the doctor. What are some side effects that I need to call my doctor about right away? WARNING/CAUTION: Even though it may be rare, some people may have very bad and sometimes deadly side effects when taking a drug. Tell your doctor or get medical help right away if you have any of the following signs or symptoms that may be related to a very bad side effect: Signs of an allergic reaction, like rash; hives; itching; red, swollen, blistered, or peeling skin with or without fever; wheezing; tightness in the chest or throat; trouble breathing, swallowing, or talking; unusual hoarseness; or swelling of the mouth, face, lips, tongue, or throat. Signs of high blood pressure like very bad headache or dizziness, passing out, or change in eyesight. Feeling confused, not able to focus, or change in behavior. Hallucinations (seeing or hearing things that are not there). If seizures are new or worse after starting this drug. Chest pain or pressure, a fast heartbeat, or an abnormal heartbeat. Swelling. Shortness of breath. Change in hearing. Ringing in ears. Passing urine more often. Swollen gland. Trouble moving around. Some people may have a higher chance of eye problems with this drug. Your doctor may want you to have an eye exam to see if you have a higher chance of these eye problems. Call your doctor right away if you have eye pain, change in eyesight, or swelling or redness in or around the eye. A severe skin reaction (Holt-Bayron syndrome/toxic epidermal necrolysis) may happen. It can cause severe health problems that may not go away, and sometimes . Get medical help right away if you have signs like red, swollen, blistered, or peeling skin (with or without fever); red or irritated eyes; or sores in your mouth, throat, nose, or eyes. What are some other side effects of this drug? All drugs may cause side effects. However, many people have no side effects or only have minor side effects. Call your doctor or get medical help if any of these side effects or any other side effects bother you or do not go away: All products: Dizziness or headache. Constipation, diarrhea, stomach pain, upset stomach, throwing up, or feeling less hungry. Shakiness. Feeling nervous and excitable. Strange or odd dreams. Gas. Dry mouth. Trouble sleeping. Muscle or joint pain. Nose or throat irritation. Sweating a lot. A change in weight without trying. Extended-release tablets: For some brands, you may see the tablet shell in your stool. For these brands, this is normal and not a cause for concern. If you have questions, talk with your doctor. These are not all of the side effects that may occur. If you have questions about side effects, call your doctor. Call your doctor for medical advice about side effects. You may report side effects to your national health agency. How is this drug best taken? Use this drug as ordered by your doctor. Read all information given to you. Follow all instructions closely. For all uses of this drug: Do not take this drug more often than you are told. This may raise the risk of seizures. Be sure you know how far apart to take your doses. Take in the morning if taking once a day. Take with or without food. If you are not able to sleep, do not take this drug too close to bedtime. Talk with your doctor. Swallow whole. Do not chew, break, or crush. Keep taking this drug as you have been told by your doctor or other health care provider, even if you feel well. If you have trouble swallowing, talk with your doctor. For stopping smoking: You may take this drug for 1 week before you stop smoking. Nicotine products and counseling may be used at the same time for best results. If you have not been able to quit smoking after taking this drug for 12 weeks, talk with your doctor. You may have signs of nicotine withdrawal when you try to quit smoking even when using drugs like this one to help you quit smoking. There are many signs of nicotine withdrawal. Rarely depression and suicidal thoughts have happened in people trying to quit smoking. Talk with your doctor. What do I do if I miss a dose? Skip the missed dose and go back to your normal time. Do not take 2 doses at the same time or extra doses. How do I store and/or throw out this drug? Store at room temperature protected from light. Store in a dry place. Do not store in a bathroom. Keep all drugs in a safe place. Keep all drugs out of the reach of children and pets. Throw away unused or drugs. Do not flush down a toilet or pour down a drain unless you are told to do so. Check with your pharmacist if you have questions about the best way to throw out drugs. There may be drug take-back programs in your area. General drug facts If your symptoms or health problems do not get better or if they become worse, call your doctor. Do not share your drugs with others and do not take anyone else's drugs. Some drugs may have another patient information leaflet. If you have any questions about this drug, please talk with your doctor, nurse, pharmacist, or other health care provider. If you think there has been an overdose, call your poison control center or get medical care right away. Be ready to tell or show what was taken, how much, and when it happened. Last Reviewed [id number] Consumer Information Use and Disclaimer This generalized information is a limited summary of diagnosis, treatment, and/or medication information. It is not meant to be comprehensive and should be used as a tool to help the user understand and/or assess potential diagnostic and treatment options. It does NOT include all information about conditions, treatments, medications, side effects, or risks that may apply to a specific patient. It is not intended to be medical advice or a substitute for the medical advice, diagnosis, or treatment of a health care provider based on the health care provider's examination and assessment of a patient's specific and unique circumstances. Patients must speak with a health care provider for complete information about their health, medical questions, and treatment options, including any risks or benefits regarding use of medications. This information does not endorse any treatments or medications as safe, effective, or approved for treating a specific patient. [employer]. and its affiliates disclaim any warranty or liability relating to this information or the use thereof. The use of this information is governed by the Terms of Use, available at https://www.[employer].com/en/kno w/tcgzfwwr-qkebessiteobn-rcjoy. 2021 [employer]. and its affiliates and/or licensors. All rights reserved. documented in this encounter [facility] 12-21-2023 History of Present illness Narrative Images from the original note were not included. Patient Summary: Abdoul Faith is a 43 year old female with obesity who presents for an initial evaluation of overweight/obesity to treat and prevent co-morbidities and is interested in combination of behavioral and pharmacological. Motivation for seeking treatment for the disease of overweight/obesity : tired of feeling like a prisoner in own body" Goal weight: 150 lb Lowest recall weight: 134 lb Highest non- recall weight: 194 lb Patient identified barriers to weight loss: motivation, lack of knowledge Weight History: She reports a strong family history of obesity and mid-adulthood weight gain. 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 Difficulty losing weight? Y recently History of weight loss with regain? Y - Last Wt 12/21/23 : 88 kg (194 lb) 5% weight loss = 184 lbs, 10% weight loss = 175 lbs Jackson body weight: 57 kg (125 lb 10.6 oz) Adjusted ideal body weight: 69.4 kg (153 lb) WEIGHT GRAPH: Diet/Nutrition overview: Pal Awake - B - SKIP sometimes OJ S - sometimes at 1000 has 4-5 eggs sometimes with spinach and mushrooms L - SKIP or sometimes 12-1400 chicken, broccoli or leftovers of lasagne or eats out a chicken taco, chips and salsa S - grazing- nuts, popcorn, crackers, Cheezit, lunch meat/crackers, fruit, candy around menses, sometimes pop D - SKIP's sometimes if grazing/working late or 6-8 pm chicken with baked potato or tacos or montano's pie or lasagne or turkey caroline with mashed potato and corn or Tator Tot casserole or chicken quesedilla, noodle. No desserts. S - sometimes OJ in evening or at bedtime or tea with honey Fluids: water, regular Chairez Pepsi 3/week, OJ, tea with honey Bedtime - [id number] Quality of diet: 24hr recall suggests unhealthy diet. Characterization of diet:Unstructured, unhealthy snacking, excessive cravings, evening snacking, and increased consumption of sugar sweetened beverages. Rheologist of impaired eating habits:excessive hunger, lack of satiety, mindlessness , boredom, emotion, and stress Eating Disorder no Cravings: sweet, salty and crunchy Sleep Duration: 5 -10 hours . TITO NO - slip box changer ordered a sleep study, needs to schedule; CPAP NO Stress Stress:yes , Cause:Work, Financial, personal Obesity Related Comorbidities: Prior Weight Loss Surgery:No PAST MEDICAL HISTORY Diagnosis Date Human papillomavirus in conditions classified elsewhere and of unspecified site Menorrhagia resolved with ablation Migraines Unspecified asthma(493.90) PAST SURGICAL HISTORY Procedure Laterality Date ESSURE 2011 OFFICE ENDOMETRIAL ABLATION 2012 UNSPECIFIED ORAL SURGERY PROCEDURE, BY REPORT [place] teeth FAMILY HISTORY Problem Relation Age of Onset other (pulmonary issues) Mother Obesity Mother Asthma Father Obesity Father Seizures Maternal Grandmother Obesity Maternal Grandmother No Known Problems Maternal Grandfather Emphysema Paternal Grandmother Obesity Paternal Grandmother No Known Problems Son No Known Problems Son Asthma Son Eczema Son Arthritis Maternal Aunt Rheumatoid Social History Tobacco Use Smoking status: Former Packs/day: 0.50 Years: 10.00 Additional pack years: 0.00 Total pack years: 5.00 Types: Cigarettes Quit date: 05/05/2014 Years since quittin.6 Smokeless tobacco: Never Vaping Use Vaping Use: Some days Substances: Nicotine Substance Use Topics Alcohol use: Yes Comment: socially, rare Drug use: No AOM Medications: Metformin - started by PCP for weight loss a couple of months ago Weight Promoting Medications: Inhaled corticosteroid Diet/weight loss History: Past weight loss attempts? self-directed and exercise program. Exercise/increased activity and counting calories Exercise: Regular exercise: walking- at least twice a week 1/2 hour to 45 min Strength/resistance exercise:no Barriers to regular exercise? no Work-related activity:primary job is more sedentary, second job active. 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 Current Contraception: tubal sterilization Obesity ROS/ FHx GEN: Fatigue:yes-most of the day CV: h/o palpitations/cardiac arrhythmia, Chest pain: yes, recent sharp pain, heaviness, neck pain-seeing Cane Loader - Currently wearing [employer] heart monitor HTN: no PULM: Asthma:yes GI: GERD:yes - gets stomach pain and sometimes heartburn with feeling of something in throat ; Gallstones:no ; Fatty liver disease:no Pancreatitis: no MSK: Joint Pain:no : Nephrolithiasis: yes- X 2 Symptoms of PCOS: no NEURO: Migraines/DREW: yes - evaluated by neurologist ; H/o seizures: no Glaucoma:no; Cataracts no Symptoms of or History of pseudotumor cerebri:no Family or personal History of MEN2 or Medullary thyroid cancer: no PE BP 120/85 Pulse 81 Ht 165.1 cm (5' 5") Wt 88 kg (194 lb) LMP 08/29/2023 (Approximate) SpO2 98% BMI 32.28 kg/m Waist Circumference: 42.5 in Neck Circumference: 14.3 in GENERAL: Female in NAD. Central adiposity. SKIN: acanthosis nigricans no, Skin tags: no Hirsutism: no HEENT: PERRL, No supraclavicular adiposity. No dorsal adiposity. RESPIRATORY: CBTA CARDIAC: RRR ABDOMEN: Protuberant ; EXTREMITIES: peripheral edema: yes, mild Results: reviewed with the patient No visits with results within 3 Month(s) from this visit. Latest known visit with results is: Appointment on 09/18/2023 Component Date Value Ref Range Status Vitamin D 25 Hydroxy 09/18/2023 26.1 (L) 31.0 - 80.0 ng/mL Final Insulin 09/18/2023 15.0 3.0 - 25.0 mU/L Final Hemoglobin A1C 09/18/2023 5.1 4.3 - 5.6 % Final Estimated Average Glucose 09/18/2023 100 mg/dL Final WBC 09/18/2023 7.04 3.70 - 11.00 k/uL Final RBC 09/18/2023 4.70 3.90 - 5.20 m/uL Final Hemoglobin 09/18/2023 13.5 11.5 - 15.5 g/dL Final Hematocrit 09/18/2023 39.9 36.0 - 46.0 % Final MCV 09/18/2023 84.9 80.0 - 100.0 fL Final MCH 09/18/2023 28.7 26.0 - 34.0 pg Final MCHC 09/18/2023 33.8 30.5 - 36.0 g/dL Final RDW-CV 09/18/2023 12.4 11.5 - 15.0 % Final Platelet Count 09/18/2023 278 150 - 400 k/uL Final MPV 09/18/2023 9.5 9.0 - 12.7 fL Final Absolute nRBC 09/18/2023 <0.01 <0.01 k/uL Final Cholesterol, Total 09/18/2023 183 <200 mg/dL Final Triglyceride 09/18/2023 181 (H) <150 mg/dL Final HDL Cholesterol 09/18/2023 44 >39 mg/dL Final Non HDL Cholesterol 09/18/2023 139 (H) <130 mg/dL Final Fasting Time 09/18/2023 14 hrs Final VLDL Cholesterol 09/18/2023 36 (H) <30 mg/dL Final TC:HDL Ratio 09/18/2023 4.16 <5.10 Final LDL Cholesterol 09/18/2023 103 (H) <100 mg/dL Final LDL:HDL Ratio 09/18/2023 2.34 <2.54 Final Protein, Total 09/18/2023 7.5 6.3 - 8.0 g/dL Final Albumin 09/18/2023 4.7 3.9 - 4.9 g/dL Final Calcium, Total 09/18/2023 9.8 8.5 - 10.2 mg/dL Final Bilirubin, Total 09/18/2023 0.3 0.2 - 1.3 mg/dL Final Alkaline Phosphatase 09/18/2023 60 34 - 123 U/L Final AST 09/18/2023 9 (L) 13 - 35 U/L Final ALT 09/18/2023 10 7 - 38 U/L Final Glucose 09/18/2023 97 74 - 99 mg/dL Final BUN 09/18/2023 12 7 - 21 mg/dL Final Creatinine 09/18/2023 0.83 0.58 - 0.96 mg/dL Final Sodium 09/18/2023 139 136 - 144 mmol/L Final Potassium 09/18/2023 4.1 3.7 - 5.1 mmol/L Final Chloride 09/18/2023 104 97 - 105 mmol/L Final CO2 09/18/2023 23 22 - 30 mmol/L Final Anion Gap 09/18/2023 12 9 - 18 mmol/L Final Estimated Glomerular Filtration Ra* 09/18/2023 90 >=60 mL/min/1.73m Final TSH 09/18/2023 1.820 0.270 - 4.200 mIU/L Final Anti-Obesity Medications >Phentermine: No uncontrolled HTN, No CVD Hx or hx of seizure disorder. No MAOI inhibitor use. No drug abuse hx. Crcl > 15. >Topiramate/zonisamide: No seizure. Yes kidney stone hx. Has hx of migraines, Yes hx of poor sleep. Yes Child bearing age - BTL >Qsymia: see above >Contrave: No uncontrolled HTN or hx of seizure disorder. No MAOI inhibitor use. No opiate use. >Saxenda/Wegovy/Ozempic: Cost. Ins coverage? >Metformin: eGFR > 30. No contraindications or medication interactions. Impression: Abdoul Faith is a 43 year old Female with Class I obesity (Body mass index is 32.28 kg/m .) who has mid adulthood obesity with several periods of weight loss followed by weight gain . The causes of her obesity are multifactorial, biological, psychological and social and environmental. Specific factors include a genetic component related to a strong family of obesity, increased consumption of high calorie/process foods, irregular eating patterns , suboptimal physical activity, and inadequate sleep duration. She has no significant weight-related medical comorbidities which increase her cardiovascular mortality risk. There are additional metabolic obesity complications including elevated triglycerides and LDL. Other medical conditions as above. Regarding her lifestyle, as above, she has a few behavioral contributors ; her physical activity is suboptimal. Overall, it is clear that her quality of life is mildly compromised by her weight. It is likely a combination of weight loss therapies will be needed. She appears motivated today. ASSESSMENT/PLAN: 1. Gastroesophageal reflux disease, unspecified whether esophagitis present - ICD9: 530.81, ICD10: K21.9 (primary diagnosis) - Discussed lifestyle modifications including losing weight, limiting caffeine, no meals three hours before sleep, and head of bed elevation - ESOMEPRAZOLE MAGNESIUM 40 MG CAPSULE,DELAYED RELEASE 2. Elevated LDL cholesterol level - ICD9: 272.0, ICD10: E78.00 - benefits of weight loss discussed - Whole food balanced protein low-carb nutrition 3. Mild persistent asthma without complication - ICD9: 493.90, ICD10: J45.30 - controlled with Advair and prn albuterol inhaler 4. Vitamin D deficiency - ICD9: 268.9, ICD10: E55.9 - daily supplement 5. Malaise and fatigue - ICD9: 780.79, ICD10: R53.81, R53.83 - TSH and CBC normal. Taking Vit D supplement 6. Migraine with aura and without status migrainosus, not intractable - ICD9: 346.00, ICD10: G43.109 7. Craving for particular food - ICD9: 783.9, ICD10: R63.8 - BUPROPION HCL SR 150 MG TABLET,12 HR SUSTAINED-RELEASE 8. Class 1 obesity with body mass index (BMI) of 31.0 to 31.9 in adult, unspecified obesity type, unspecified whether serious comorbidity present - ICD9: 278.00, V85.31, ICD10: E66.9, Z68.31 Plan: -- Based on the severity and resistance of the obesity/overweight with co-morbidities, I believe a combination of behavioral and pharmacological intervention is the best and most appropriate intermediate frame tender therapeutic option. - BUPROPION HCL SR 150 MG TABLET,12 HR SUSTAINED-RELEASE Bupropion: Discussed risks/benefits with the patient. Patient aware that this is an off-label use of the medication. No uncontrolled high BP, seizure disorders or drug/alcohol withdrawal, current or history of anorexia nervosa/bulimia or acute angle-closure glaucoma. Educated that bupropion can increase the risk of suicide in children, adolescents and young adults 24 years of age and younger, can increase blood pressure, cause decrease in cognition "brain fog" and has been associated with an increased risk of acute angle-closure glaucoma. Bupropion can also assist in smoking cessation. - METFORMIN 500 MG TABLET Agreeable to begin Metformin 500 mg with dinner daily x 1 week. If tolerating will increase to 2 tablets with dinner daily. We discussed common side effects of this medication including nausea, changes in bowel habits, abdominal discomfort, and flatulence. Discussed taking it with food and complication of lactic acidosis and signs/symptoms and medication handout given. Further instructed that if she experiences malaise, muscle aches, difficulty breathing, or severe abdominal pain to seek immediate medical attention. -- We discussed several strategies to track food intake and increase mindfulness around eating while will decrease calorie intake. She was counseled on the following: Eating primarily whole foods. Limit carbs, especially processed carbs. Do not drink your calories 30 grams of protein for breakfast decreases your hunger during the day by up to 40 % Premier Protein or generic 30 gm protein 1 gm sugar Walk for 15 minutes immediately a meal. -- Encouraged the patient to improve her physical activity. Although cardiovascular exercise is most beneficial for weight loss initially, we discussed healthy muscle from a combination of resistance training and cardiovascular exercise is the best jail plan. An overall goal of 150-200 minutes per week of exercise has been effective in weight loss and maintenance. -- Reviewed that monitoring weight daily and food intake can have a positive impact on overall weight loss and maintenance of weight loss. Activity tracking can be used to stay on target for exercise however should not be used to reward oneself She understands that there can be limitations of pharmacotherapy due to contraindications, side effects and cost. Patient was told to contact her insurance company to see what AOMs and supervised behavioral medical appointments are currently covered. Patient understands she will have more success when following a healthy lifestyle. We reviewed continued use of online tracking of daily weights, food journal and if desired physical activity. We reviewed that during management she is to report any concerning side effects of any pharmacotherapy she is placed on. She understands that she will need routine follow up in the office. Prior to any virtual visits in the future she will need to check her Blood pressure, weight, and pulse. Prescription instructions reviewed with patient as applicable. Potential red flag symptoms discussed with the patient. Reviewed appropriate action plan to take if red flag symptoms occur. Patient agreeable to treatment plan. -- follow-up visit in 6 weeks for management of above interventions Nancy Viera CNP Advanced Education from the [employer] I spent a total of 75 minutes on the date of the service which included preparing to see the patient, [id number] patient care, completing clinical documentation, obtaining and/or reviewing separately obtained history, performing a medically appropriate examination, counseling and educating the patient/family/caregiver, and ordering medications, tests, or procedures. documented in this encounter [facility] 12-14-2023 Nurse Note EVENT MONITOR DISPOSABLE PATCH INSTRUCTIONS Patient Name: Abdoul Vazquez [facility] Number: [id number] Skin prepped and cleansed with alcohol Patch secured to prepped area Monitor Activated Serial #: [id number] Patient Instructed: Prescribed order timeframe Bathing guidelines Usage of event button and diary documentation Return of monitor at the end of prescribed order Call with problems [phone] or [phone]. [phone] Patient expresses a good understanding of instructions Laura Duncan MA [facility] 12-14-2023 Nurse Note EVENT MONITOR DISPOSABLE PATCH INSTRUCTIONS Patient Name: Abdoul Faith [facility] Number: [id number] Skin prepped and cleansed with alcohol Patch secured to prepped area Monitor Activated Serial #: [id number] Patient Instructed: Prescribed order timeframe Bathing guidelines Usage of event button and diary documentation Return of monitor at the end of prescribed order Call with problems [phone] or [phone]. [phone] Patient expresses a good understanding of instructions Laura Duncan MA documented in this encounter [facility] 12-14-2023 Telephone encounter Note Please call Pt to schedule Echo and Stress ECG ordered by Dr Gayle today. [facility] 12-14-2023 Miscellaneous Notes Please call Pt to schedule Echo and Stress ECG ordered by Dr Gayle today. documented in this encounter [facility] 12-14-2023 Note HNO ID: [id number] Author: JUAN MANUEL GAYLE, DO Service: ? Author Type: Physician Type: Progress Notes Filed: 12/14/2023 17:00 Note Text: [facility] SE[facility] OUTPATIENT VISIT DATE December 14, 2023 PRIMARY CARE PHYSICIAN: Ila Canales [address] [place] [address] [place] [address] HISTORY OF PRESENT ILLNESS: Ms. Faith is a 43 year old female. The patient presents for evaluation treatment options of various symptoms including palpitations, chest discomfort, extreme fatigue and dyspnea. She has noted for the past several months the symptoms. Her chest discomfort will be in the center of her chest rating up into her left jaw. They occur at rest or with exertion. It is a pressure sensation. There is at times sharp nature to it. She does have dyspnea with exertion. She is extremely fatigued and has daytime hypersomnolence. She does not awaken feeling rested. Lastly, she notes palpitations at various times lasting a few minutes at most which can be various symptoms as well. None of the symptoms are necessary associated with themselves or with other symptoms. She was evaluated several months ago apparently at the local emergency room for which records are unavailable for which she was told that nothing was wrong and discharged same day. The patient is single and lives at home with her children. She has a 4-year-old grandchild that lives with the parents. 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 She is a non-smoker, social drinker. She does not exercise on a regular basis. She skips lunch typically. She does not have balanced meals. She does not drink much in the way of water. She consumes soda and maybe 1 cup of coffee daily. Cardiac risk factors: None Impression: 1. Palpitations that 2. Chest discomfort 3. Cardiac murmur with a systolic click 4. Dyspnea on exertion 5. Daytime hypersomnolence, rule obstructive sleep apnea 6. Hot flashes and night sweats, would consider ruling out premenopause PLAN AND RECOMMENDATIONS: Patient has various symptoms for which we have performed the following testin. An echocardiogram to evaluate heart structure and function 2. Treadmill stress test to evaluate provokable response and possible dysrhythmia 3. 14-day teletypesetter monitor. The patient may however take this off sooner if there are multiple times she presses the button prior to such 4. Sleep study We discussed at length dietary and lifestyle modification. This included small meals, incorporation of fruits and vegetables, adequate protein and of course daily exercise including resistance training. The patient is also having perimenopausal symptoms and would highly recommend considering checking her hormones. In the absence of findings, we recommend looking to other noncardiac causes for which we believe sleep apnea would be high on the differential. Other symptoms could be from simple musculoskeletal means. If the patient has an extensive workup with continued or worsening symptoms, then repeat cardiac evaluation may be necessary in the distant future. Vitals: BP 96/64 Ht 166.4 cm (5' 5.5") Wt 88 kg (194 lb) LMP 08/29/2023 (Approximate) BMI 31.79 kg/m? Physical Exam Vitals reviewed. Constitutional: General: She is not in acute distress. Appearance: Normal appearance. She is well-developed. HENT: Head: Normocephalic and atraumatic. Nose: Nose normal. Eyes: General: No scleral icterus. Right eye: No discharge. Left eye: No discharge. Pupils: Pupils are equal, round, and reactive to light. Neck: Thyroid: No thyromegaly. Vascular: No carotid bruit or JVD. Cardiovascular: Rate and Rhythm: Normal rate and regular rhythm. Heart sounds: Normal heart sounds. No murmur heard. No friction rub. No gallop. Pulmonary: Effort: Pulmonary effort is normal. No respiratory distress. Breath sounds: Normal breath sounds. No wheezing or rales. Abdominal: General: Bowel sounds are normal. Palpations: Abdomen is soft. Musculoskeletal: General: Normal range of motion. Cervical back: Normal range of motion and neck supple. Skin: General: Skin is warm and dry. Capillary Refill: Capillary refill takes less than 2 seconds. Coloration: Skin is not pale. Neurological: Mental Status: She is alert and oriented to person, place, and time. Cranial Nerves: No cranial nerve deficit. Psychiatric: Behavior: Behavior normal. Thought Content: Thought content normal. Judgment: Judgment normal. Review of Systems Constitutional: Negative for activity change and fatigue. HENT: Negative for ear pain and facial swelling. Eyes: Negative for pain and discharge. Respiratory: Positive for shortness of breath. Negative for chest tightness. Cardiovascular: Positive for chest pain and palpitations. Negative for leg swelling. (more content not included)... [facility] 12-14-2023 History of Present illness Narrative Images from the original note were not included. [facility] OUTPATIENT VISIT DATE December 14, 2023 PRIMARY CARE PHYSICIAN: Ila Canales [address] [place] [address] [place] [address] HISTORY OF PRESENT ILLNESS: Ms. Faith is a 43 year old female. The patient presents for evaluation treatment options of various symptoms including palpitations, chest discomfort, extreme fatigue and dyspnea. She has noted for the past several months the symptoms. Her chest discomfort will be in the center of her chest rating up into her left jaw. They occur at rest or with exertion. It is a pressure sensation. There is at times sharp nature to it. She does have dyspnea with exertion. She is extremely fatigued and has daytime hypersomnolence. She does not awaken feeling rested. Lastly, she notes palpitations at various times lasting a few minutes at most which can be various symptoms as well. None of the symptoms are necessary associated with themselves or with other symptoms. She was evaluated several months ago apparently at the local emergency room for which records are unavailable for which she was told that nothing was wrong and discharged same day. The patient is single and lives at home with her children. She has a 4-year-old grandchild that lives with the parents. 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 She is a non-smoker, social drinker. She does not exercise on a regular basis. She skips lunch typically. She does not have balanced meals. She does not drink much in the way of water. She consumes soda and maybe 1 cup of coffee daily. Cardiac risk factors: None Impression: 1. Palpitations that 2. Chest discomfort 3. Cardiac murmur with a systolic click 4. Dyspnea on exertion 5. Daytime hypersomnolence, rule obstructive sleep apnea 6. Hot flashes and night sweats, would consider ruling out premenopause PLAN AND RECOMMENDATIONS: Patient has various symptoms for which we have performed the following testin. An echocardiogram to evaluate heart structure and function 2. Treadmill stress test to evaluate provokable response and possible dysrhythmia 3. 14-day teletypesetter monitor. The patient may however take this off sooner if there are multiple times she presses the button prior to such 4. Sleep study We discussed at length dietary and lifestyle modification. This included small meals, incorporation of fruits and vegetables, adequate protein and of course daily exercise including resistance training. The patient is also having perimenopausal symptoms and would highly recommend considering checking her hormones. In the absence of findings, we recommend looking to other noncardiac causes for which we believe sleep apnea would be high on the differential. Other symptoms could be from simple musculoskeletal means. If the patient has an extensive workup with continued or worsening symptoms, then repeat cardiac evaluation may be necessary in the distant future. Vitals: BP 96/64 Ht 166.4 cm (5' 5.5") Wt 88 kg (194 lb) LMP 08/29/2023 (Approximate) BMI 31.79 kg/m Physical Exam Vitals reviewed. Constitutional: General: She is not in acute distress. Appearance: Normal appearance. She is well-developed. HENT: Head: Normocephalic and atraumatic. Nose: Nose normal. Eyes: General: No scleral icterus. Right eye: No discharge. Left eye: No discharge. Pupils: Pupils are equal, round, and reactive to light. Neck: Thyroid: No thyromegaly. Vascular: No carotid bruit or JVD. Cardiovascular: Rate and Rhythm: Normal rate and regular rhythm. Heart sounds: Normal heart sounds. No murmur heard. No friction rub. No gallop. Pulmonary: Effort: Pulmonary effort is normal. No respiratory distress. Breath sounds: Normal breath sounds. No wheezing or rales. Abdominal: General: Bowel sounds are normal. Palpations: Abdomen is soft. Musculoskeletal: General: Normal range of motion. Cervical back: Normal range of motion and neck supple. Skin: General: Skin is warm and dry. Capillary Refill: Capillary refill takes less than 2 seconds. Coloration: Skin is not pale. Neurological: Mental Status: She is alert and oriented to person, place, and time. Cranial Nerves: No cranial nerve deficit. Psychiatric: Behavior: Behavior normal. Thought Content: Thought content normal. Judgment: Judgment normal. Review of Systems Constitutional: Negative for activity change and fatigue. HENT: Negative for ear pain and facial swelling. Eyes: Negative for pain and discharge. Respiratory: Positive for shortness of breath. Negative for chest tightness. Cardiovascular: Positive for chest pain and palpitations. Negative for leg swelling. Gastrointestinal: Negative for abdominal pain, blood in stool, nausea and vomiting. Endocrine: Negative for cold intolerance and heat intolerance. Genitourinary: Negative for frequency and hematuria. Musculoskeletal: Negative for arthralgias and gait problem. Skin: Negative for color change, pallor and rash. Allergic/Immunologic: Negative for immunocompromised state. Neurological: Negative for dizziness, syncope, light-headedness and headaches. Hematological: Negative for adenopathy. Does not bruise/bleed easily. Psychiatric/Behavioral: Negative for confusion. The patient is not nervous/anxious. PAST MEDICAL HISTORY Diagnosis Date Human papillomavirus in conditions classified elsewhere and of unspecified site Menorrhagia resolved with ablation Unspecified asthma(493.90) PAST SURGICAL HISTORY Procedure Laterality Date ESSURE 2011 OFFICE ENDOMETRIAL ABLATION 2011 UNSPECIFIED ORAL SURGERY PROCEDURE, BY REPORT Col[place] teeth Social History Tobacco Use Smoking status: Former Packs/day: 0.50 Years: 10.00 Additional pack years: 0.00 Total pack years: 5.00 Types: Cigarettes Quit date: 05/05/2014 Years since quittin.6 Smokeless tobacco: Never Vaping Use Vaping Use: Former Substance Use Topics Alcohol use: Yes Comment: socially, rare Drug use: No FAMILY HISTORY Problem Relation Age of Onset other (pulmonary issues) Mother Asthma Father Seizures Maternal Grandmother Emphysema Paternal Grandmother Arthritis Maternal Aunt Rheumatoid ALLERGIES Allergen Reactions Augmentin [Amoxicil* Diarrhea Seasonal Allergies Intolerance CURRENT MEDICATIONS: metFORMIN (GLUCOPHAGE) 500 mg tablet take 1 tablet by mouth EVERY MORNING WITH BREAKFAST albuterol HFA (VENTOLIN HFA) 90 mcg/actuation inhaler Inhale 2 Puffs as instructed every 4 hours as needed for wheezing/shortness of breath. fluticasone-salmeterol (ADVAIR DISKUS) 100-50 mcg/dose inhaler Inhale 1 Puff as instructed two times a day. metroNIDAZOLE (METROGEL VAGINAL) 0.75 % (37.5mg/5 gram) Vaginal Gel Use 1 applicator twice weekly x 6 months. famotidine (PEPCID) 20 mg tablet Take 1 tablet by mouth at bedtime as needed. nitrofurantoin (MACRODANTIN) 50 mg capsule Take 1 capsule by mouth as needed (POST COITAL). rizatriptan (MAXALT) 10 mg tablet Take 1 tablet by mouth as directed. at onset of headache. May repeat after 2 hours. Do not exceed 20 mg per day. Juan Manuel Gayle, DO, FACC, FAC Pipe Insulator, [facility] Pipe Insulator, [facility] Pipe Insulator, [facility] Pipe Insulator, [facility] Pipe Insulator, [facility] Clinical Learning Analyst Profressor of Medicine, [facility] Staff Cane Loader, Torsten and Cristin Vanegas Department of Cardiovascular Medicine/Heart and Vascular [place], [facility] Please note: This note has been produced using speech recognition software and may contain errors related to that system including joann, punctuation, spelling, words, gender and phrases that may be inappropriate. documented in this encounter [facility] 11-22-2023 Telephone encounter Note Pharmacy verified in [facility] Patient has been identified by name and date of : Yes Patient aware RX will be sent to pharmacy. No need to notify patient. Pharmacy phones for refill(s): Requested Prescriptions Pending Prescriptions Disp Refills metFORMIN (GLUCOPHAGE) 500 mg tablet [Pharmacy Med Name: METFORMIN HCL 500 MG TABLET] 30 tablet 2 Sig: take 1 tablet by mouth EVERY MORNING WITH BREAKFAST Date of last office visit : 08/22/2023 Date of next office visit : 02/29/2024 Last 2 Encounter Wt Readings: Date: Wt: 09/15/2023 88.5 kg (195 lb) 08/22/2023 88 kg (194 lb 0.1 oz) Diabetes: Hemoglobin A1C (%) Date Value 09/18/2023 5.1 Please advise. ANJU RUIZ MA [facility] 11-22-2023 Miscellaneous Notes Pharmacy verified in [facility] Patient has been identified by name and date of : Yes Patient aware RX will be sent to pharmacy. No need to notify patient. Pharmacy phones for refill(s): Requested Prescriptions Pending Prescriptions Disp Refills metFORMIN (GLUCOPHAGE) 500 mg tablet [Pharmacy Med Name: METFORMIN HCL 500 MG TABLET] 30 tablet 2 Sig: take 1 tablet by mouth EVERY MORNING WITH BREAKFAST Date of last office visit : 08/22/2023 Date of next office visit : 02/29/2024 Last 2 Encounter Wt Readings: Date: Wt: 09/15/2023 88.5 kg (195 lb) 08/22/2023 88 kg (194 lb 0.1 oz) Diabetes: Hemoglobin A1C (%) Date Value 09/18/2023 5.1 Please advise. ANJU RUIZ MA documented in this encounter [facility] 10-04-2023 Telephone encounter Note 2nd attempt,left VM [facility] 10-04-2023 Miscellaneous Notes 2nd attempt,left VM Dr. Fernandes appt cancelled and new appt in [place] scheduled. 1st attempt to notify pt, sent [facility] message and LVM. documented in this encounter [facility] 10-02-[address] Dena galan cancelled and new appt in [place] scheduled. 1st attempt to notify pt, sent [facility] message and LVM. [facility] 09-15-2023 Instructions Nancy Viera, LALA.HR PAYROLL COORDINATOR - 09/15/2023 12:02 PM EDT - Eat primarily whole foods. Limit carbs, especially processed carbs. Eat - Meat, vegetables and fruits with skin on if possible, eggs, cheese. - Do not drink your calories - 30 grams of protein for your first meal of the day decreases your hunger during the day by up to 40 % Premier Protein or generic 30 gm protein 1 gm sugar or 5 eggs or 2-3 eggs and some unbreaded meat and/or cheese. No fruit, vegetables, bread, grain, yogurt, cottage cheese, Smoothies, etc. - Walk for 15 minutes immediately a meal. documented in this encounter [facility] 09-15-2023 History of Present illness Narrative Watch Technician offered: Patient declines. Abdoul is a 43 year old who presents for an annual gynecologic exam with complaints, always feels bloated with increased gassiness. Thinks it may be related to weight but it is also similar to past BV infections increase in yellow vaginal discharge. No itching or irritation or odor . Menses: cycles every 28-30 days and 3-4 days of light flow. Ablation 2011 Contraception: condoms, Essure HPV vaccine: No Last Pap: 2017 normal HPV: negative History of abnormal pap: No Last mammogram: 2023 negative Sexually active: Yes Patient concerns for STD exposure: No. Time with current partner: 2 years Pain with intercourse: Yes, ever since Essure inserted. Postcoital bleeding: No Documentation from previous visit of 02/08/2018 was copied and pasted, documentation has been reviewed and edited as necessary for today's visit. 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 LMP: 08/01/2023 (Approximate), Ablation Age at Menarche: Age at First : Age at Menopause: Audio Visual Design Engineer History Comments: Sexual Activity: Yes; Male; essure- ablation Contraception: Other PAST MEDICAL HISTORY Diagnosis Date Human papillomavirus in conditions classified elsewhere and of unspecified site Menorrhagia resolved with ablation Unspecified asthma(493.90) PAST SURGICAL HISTORY Procedure Laterality Date ESSURE 2012 OFFICE ENDOMETRIAL ABLATION 2011 UNSPECIFIED ORAL SURGERY PROCEDURE, BY REPORT [place] teeth FAMILY HISTORY Problem Relation Age of Onset other (pulmonary issues) Mother Asthma Father Seizures Maternal Grandmother Emphysema Paternal Grandmother Arthritis Maternal Aunt Rheumatoid SOCIAL HISTORY Social History Tobacco Use Smoking status: Former Packs/day: 0.50 Years: 10.00 Additional pack years: 0.00 Total pack years: 5.00 Types: Cigarettes Quit date: 05/05/2014 Years since quittin.3 Smokeless tobacco: Never Vaping Use Vaping Use: Former Substance Use Topics Alcohol use: Yes Comment: socially, rare Drug use: No REVIEW OF SYSTEMS Abdomen: No abdominal pain, nausea, vomiting, diarrhea, or constipation. No early satiety, indigestion. Over past year has noticed increased flatulence and general bloating. Bladder: No dysuria, gross hematuria, urinary frequency, urinary urgency, or incontinence. Breast: No breast lumps, nipple d/c, overlying skin changes, redness or skin retraction. Allergies and current medication updated:Yes EXAM: BP 114/72 Wt 195 lb (88.5kg) LMP 08/29/2023 GENERAL: pleasant, female in no apparent distress HEENT: Normocephalic, atraumatic, mucus membranes moist, and no lesions NECK: Supple, full range of motion, no adenopathy, and thyroid normal DERMATOLOGY: Normal, without lesions, non-icteric, and non-hirsute BREAST: soft, non-tender, symmetric, no dominant mass, normal nipple-areolar complex, no lymphadenopathy, and no nipple discharge CHEST: Normal inspiratory effort ABDOMEN: soft, no masses, and Mild tenderness in Generalized PELVIC: external genitalia normal, normal Bartholin's glands, urethra, Westervelt's glands, no vulvar lesions, no cervical lesions, thick pale yellow discharge present, normal appearing perineal body and perianal region BIMANUAL: uterus normal size, shape and consistency, no adnexal masses, and Mild tenderness RECTOVAGINAL: deferred. NEURO: alert and oriented x3,exam grossly non-focal EXTREMITIES: normal ASSESSMENT/PLAN: 1) Health maintenance: Pap done with HPV. Mammogram ordered. Nutrition, exercise and routine health maintenance exams reviewed. 2. Abdominal bloating - ICD9: 787.3, ICD10: R14.0 - ROXANNE/TRICHOMONAS NAAT - BACTERIAL VAGINOSIS NAAT 3. Vaginal discharge - ICD9: 623.5, ICD10: N89.8 - ROXANNE/TRICHOMONAS NAAT - BACTERIAL VAGINOSIS NAAT 4. Malaise and fatigue - ICD9: 780.79, ICD10: R53.81, R53.83 - VITAMIN D 25 HYDROXY - THYROID STIMULATING HORMONE 5. Screening cholesterol level - ICD9: V77.91, ICD10: Z13.220 - LIPID PANEL BASIC 6. Screening for deficiency anemia - ICD9: V78.1, ICD10: Z13.0 - COMPLETE BLOOD COUNT 7. Screening for diabetes mellitus - ICD9: V77.1, ICD10: Z13.1 - INSULIN ASSAY BLOOD - HEMOGLOBIN A1C - COMPREHENSIVE METABOLIC PANEL 8. Screening for metabolic disorder - ICD9: V77.99, ICD10: Z13.228 - COMPREHENSIVE METABOLIC PANEL 9. Screening for thyroid disorder - ICD9: V77.0, ICD10: Z13.29 - THYROID STIMULATING HORMONE 10. Encounter for vitamin deficiency screening - ICD9: V77.99, ICD10: Z13.21 - VITAMIN D 25 HYDROXY 11. Class 1 obesity with body mass index (BMI) of 31.0 to 31.9 in adult, unspecified obesity type, unspecified whether serious comorbidity present - ICD9: 278.00, V85.31, ICD10: E66.9, Z68.31 Weight increasing - VITAMIN D 25 HYDROXY - INSULIN ASSAY BLOOD - HEMOGLOBIN A1C - COMPLETE BLOOD COUNT - LIPID PANEL BASIC - COMPREHENSIVE METABOLIC PANEL - THYROID STIMULATING HORMONE - CONSULT TO [facility] WEIGHT MANAGEMENT PROGRAM - Eat primarily whole foods. Limit carbs, especially processed carbs. Eat - Meat, vegetables and fruits with skin on if possible, eggs, cheese. - Do not drink your calories - 30 grams of protein for your first meal of the day decreases your hunger during the day by up to 40 % Premier Protein or generic 30 gm protein 1 gm sugar or 5 eggs or 2-3 eggs and some unbreaded meat and/or cheese. No fruit, vegetables, bread, grain, yogurt, cottage cheese, Smoothies, etc. - Walk for 15 minutes immediately a meal. 12) Contraception: Essure. Contraceptive options reviewed and information provided. 13) STD screening: Accepted STD check for Gonorrhea and Chlamydia. 14 Follow up one year or sooner as needed Nancy Viera APRN.CNP Medical Decision Making: Problems: Moderate: 1+ chronic illnesses with change and New problem with uncertain prognosis Data: Unique test(s) ordered: 3+ Medical Decision Making Level: 4 - Moderate documented in this encounter [facility] 08-22-2023 History of Present illness Narrative CHIEF COMPLAINT Patient presents with: Physical HISTORY OF PRESENT ILLNESS Abdoul Faith is a 42 year old female who presents here today for annual physical exam. I last saw this patient on 07/25/2022. Neck - Endorses pain that radiates up the side of her neck - Pain as been ongoing for some time - Recently part of her face will feel numb/prickling sensation - Denies noticing and drooping - Admits that her arm feels heavy sometimes - Admits to dizziness, sometimes Chest - Endorses palpitations and chest pain a few times a week, "heart hurts" - Described as a cramping pain, at times - Not sure if it is related to anxiety Asthma - Has been "okay" - Notes that her allergies have been bad and she was recently sick with sinus infection, bronchitis and flu - Has had to use her inhaler more often Headaches - Was previously going to a chiropractor - Headaches improved, was not endorsing them daily - Has not been able to go to the chiropractor for some time - Recently restarted Maxalt Foot - Feels like she pulled something her foot - Left - Hard to walk on it Health Maintenance Due for Spirometry Due for Hep B Vaccine (1 of 3- 3 dose series) Due for DTaP, Tdap, Td Vaccine (2- Td or Tdap) Due for Influenza Vaccine Due for Covid-19 Vaccine (- season) Due for Pap Testing Due for HPV Testing Due for Depression Assessment Due for Annual PCP Team Chronic Disease Visit Past, family and social history reviewed. PAST MEDICAL HISTORY PAST MEDICAL HISTORY Diagnosis Date Human papillomavirus in conditions classified elsewhere and of unspecified site Menorrhagia resolved with ablation Unspecified asthma(493.90) PAST SURGICAL HISTORY Procedure Laterality Date ESSURE 2011 OFFICE ENDOMETRIAL ABLATION 2011 UNSPECIFIED ORAL SURGERY PROCEDURE, BY REPORT [place] teeth ALLERGIES Augmentin [Amoxicillin-Pot Clavulanate] and Seasonal Allergies FAMILY HISTORY Problem Relation Age of Onset other (pulmonary issues) Mother Asthma Father Seizures Maternal Grandmother Emphysema Paternal Grandmother Arthritis Maternal Aunt Rheumatoid Social History Tobacco Use Smoking status: Former Packs/day: 0.50 Years: 10.00 Additional pack years: 0.00 Total pack years: 5.00 Types: Cigarettes Quit date: 05/05/2014 Years since quittin.3 Smokeless tobacco: Never Vaping Use Vaping Use: Former Substance Use Topics Alcohol use: Yes Comment: socially, rare Drug use: No REVIEW OF SYSTEMS General: Feels well, no weight changes, fevers or chills. HEENT: No sinus congestion, earache, sore throat. +unilateral facial numbness/prickling sensation +headaches Cardiac: No chest pain, palpitations Resp: No cough, wheeze, shortness of breath GI: No reflux symptoms, food intolerance, bowel changes. : No urinary frequency, dysuria. MS: +neck pain +heaviness of the arm, occasional, unilateral +left foot pain PHYSICAL EXAMINATION BP 123/84 Pulse 88 Ht 166.4 cm (5' 5.5") Wt 88 kg (194 lb 0.1 oz) LMP 08/01/2023 (Approximate) SpO2 100% BMI 31.79 kg/m Repeat BP: 110/70 General: Alert, well developed, well nourished, no distress, pleasant and cooperative. Obese. HEENT: No adenopathy or thyromegaly Heart: Regular rate and rhythm. Normal S1 and S2. No murmurs, rubs, or gallops. Lungs: Clear to auscultation bilaterally. No respiratory distress. No wheezes, rales, or rhonchi. Abdomen: Soft, non-tender, no distention Extremities: Feet/ankles without edema, posterior tibial pulses full and symmetrical Skin: No rashes or suspicious skin lesions noted. Health Maintenance: Spirometry Never done Hepatitis B Vaccine(1 of 3 - 19+ 3-dose series) Never done DTaP,Tdap,Td Vaccine(2 - Td or Tdap) due on 07/12/2020 Influenza Vaccine(1) due on 02/03/2023 Covid-19 Vaccine(3 - 2022-24 season) due on 02/03/2023 Pap Testing due on 02/08/2023 HPV Testing due on 02/08/2023 Depression Assessment due on 06/05/2023 Annual PCP Team Chronic Disease Visit due on 07/25/2023 Mammogram Screening due on 08/08/2024 Hepatitis C Screening Completed HIV Screening Completed HPV Vaccine Aged Out Data Reviewed Latest Ref Rng 07/01/2021 Protein, Total 6.3 - 8.0 g/dL 6.7 Albumin 3.9 - 4.9 g/dL 4.5 Calcium 8.5 - 10.2 mg/dL 9.4 Bilirubin, Total 0.2 - 1.3 mg/dL <0.2 (L) Alkaline Phosphatase 34 - 123 U/L 52 AST 13 - 35 U/L 14 Glucose 74 - 99 mg/dL 93 BUN 7 - 21 mg/dL 21 Creatinine 0.58 - 0.96 mg/dL 0.72 Sodium 136 - 144 mmol/L 136 Potassium 3.7 - 5.1 mmol/L 4.3 Chloride 97 - 105 mmol/L 104 CO2 22 - 30 mmol/L 21 (L) Anion Gap 9 - 18 mmol/L 11 ALT 7 - 38 U/L 14 eGFR- >60 eGFR-All Other Races . >60 WBC 3.70 - 11.00 k/uL 9.41 RBC 3.90 - 5.20 m/uL 4.38 Hemoglobin 11.5 - 15.5 g/dL 12.7 Hematocrit 36.0 - 46.0 % 39.1 MCV 80.0 - 100.0 fL 89.3 MCH 26.0 - 34.0 pG 29.0 MCHC 30.5 - 36.0 g/dL 32.5 RDW-CV 11.5 - 15.0 % 12.2 Platelet Count 150 - 400 k/uL 262 MPV 9.0 - 12.7 fL 10.5 Absolute nRBC <0.01 k/uL <0.01 TSH 0.270 - 4.200 uU/mL 1.870 Legend: (L) Low Assessment/Plan (Z00.00) Well adult exam (primary encounter diagnosis) Comment: Generally healthy adult female here for annual physical Plan: As below (J45.30) Mild persistent asthma without complication Comment: symptomatic at times. Plan: albuterol HFA (VENTOLIN HFA) 90 mcg/actuation inhaler (M54.2) Neck pain on left side (G44.86) Cervicogenic headache Comment: Ongoing/ progressively worsening. Consult order placed Plan: CONSULT TO NEUROLOGY (R00.2) Palpitations (R07.89) Atypical chest pain (R01.1) Systolic click Comment: Ongoing. Consider mitral valve prolapse. Consult order placed Plan: CONSULT TO CARDIOLOGY (M79.672, G89.29) Chronic foot pain, left Comment: Ongoing, consider plantar fasciitis. Consult order placed, will obtain xray Plan: CONSULT TO PODIATRY, XR FOOT GENERAL 3V AP/LAT/OBL LEFT (Z23) Tetanus-diphtheria (Td) vaccination Comment: Per health maintenance, pt agreeable Plan: TD VACCINE, AGE 7+ YR, 5 LF TETANUS ([facility]) Requested Prescriptions Signed Prescriptions Disp Refills albuterol HFA (VENTOLIN HFA) 90 mcg/actuation inhaler 18 g 0 Sig: Inhale 2 Puffs as instructed every 4 hours as needed for wheezing/shortness of breath. fluticasone-salmeterol (ADVAIR DISKUS) 100-50 mcg/dose inhaler 60 Each 11 Sig: Inhale 1 Puff as instructed two times a day. metFORMIN (GLUCOPHAGE) 500 mg tablet 30 tablet 2 Sig: Take 1 tablet by mouth daily with breakfast. RTO: 6 months Scribe Attestation: By signing my name below, IIvonne, attest that this documentation has been prepared under the direction and in the presence of Rj Canales M.D. Electronically Signed: Marilynn Dunaway. August 22, 2023 8:39 AM Provider Attestation: Ila Quinn MD, personally performed the services described in this documentation. All medical record entries made by the scribe were at my direction and in my presence. I have reviewed the chart and discharge instructions (if applicable), and agree that the record reflects my personal performance and is accurate and complete. Electronically Signed: Ila Canales MD August 22, 2023 4:33 PM documented in this encounter [facility] 08-10-2023 Miscellaneous Notes August 10, 2023 PID: [id number] Abdoul Faith [address] [place] [address] Dear Ms. Faith, We are pleased to inform you that the results of your recent breast imaging exam on 08/09/2023 are normal. Early detection of cancer is very important. We also understand recommendations regarding breast cancer screening are controversial. Please discuss with your primary care provider which strategy is best for you and whether a mammogram is right for you. Your imaging studies and report will be kept on file at [facility] as part of your permanent medical record and are available for your continuing care. Thank you for allowing us to help in meeting your health care needs. Sincerely, Dr. Flores Interpreting Radiologist [facility] (Normal over 40) documented in this encounter [facility] 08-09-2023 History of Present illness Narrative Radiology Service Progress Note PATIENT NAME: Abdoul Faith DATE OF SERVICE: August 09, 2023 TIME: 1:39 PM PATIENT IDENTITY VERIFICATION COMPLETED USING TWO (2) IDENTIFIERS: Name and Date of confirmed by patient verbally. FALL SCREENING: Has the patient had 2 falls in the last year or 1 fall with injury or currently using an Ambulatory Assistive Device (Walker, Cane, Wheelchair, Crutches, etc.)? No PATIENT GENDER DATA: Female. status: : No status: NO. PATIENT RELEVANT IMPLANT DATA REVIEWED: Not Applicable PATIENT PRESENTS WITH AN IMPLANTABLE OR ATTACHED THERMAL CUTTER HAND: No RADIOLOGY DEPARTMENT: Mammography PERIPHERAL IV DATA: Not applicable SIGNED BY: Aarno Lama August 09, 2023 1:39 PM documented in this encounter [facility] 05-22-2023 History of Present illness Narrative Radiology Service Progress Note PATIENT NAME: Abdoul Faith DATE OF SERVICE: May 22, 2023 TIME: 10:16 AM PATIENT IDENTITY VERIFICATION COMPLETED USING TWO (2) IDENTIFIERS: Name and Date of confirmed by patient verbally. FALL SCREENING: Has the patient had 2 falls in the last year or 1 fall with injury or currently using an Ambulatory Assistive Device (Walker, Cane, Wheelchair, Crutches, etc.)? No PATIENT GENDER DATA: Female. status: : No status: NO. PATIENT RELEVANT IMPLANT DATA REVIEWED: Not Applicable RADIOLOGY DEPARTMENT: General X-ray: Exam(s) Completed: Chest X-Ray PERIPHERAL IV DATA: Not applicable SIGNED BY: RT Shoshana(R) May 22, 2023 10:16 AM documented in this encounter [facility] 05-20-2023 History of Present illness Narrative Patient presents with: Cough: Chest congestion, ST, loss of voice, DREW x1 week HPI: Feeling sick for 1 week. Has had some lingering respiratory symptoms since treatment in March. Coughed up hard mucus in the chest with some blood this week. Positive symptoms: Cough, Sore throat, Headache, hoarse voice, Chest tightness, globus sensation, sore throat, feverish this week, Nasal Congestion, Rhinorrhea, Post nasal drainage, sinus pressure, teeth hurt Negative symptoms: Vomiting, Diarrhea, dysphagia OTC: Mucinex, Tylenol, advair, albuterol multiple times per day. Prescribed doxycycline, prednisone, and Tessalon 04/02/2023. PAST MEDICAL HISTORY Diagnosis Date Human papillomavirus in conditions classified elsewhere and of unspecified site Menorrhagia resolved with ablation Unspecified asthma(493.90) MEDICATIONS: Current Outpatient Medications Medication Sig fluticasone-salmeterol (ADVAIR DISKUS) 100-50 mcg/dose inhaler Inhale 1 Puff as instructed two times a day. albuterol HFA (VENTOLIN HFA) 90 mcg/actuation inhaler Inhale 2 Puffs as instructed every 4 hours as needed for wheezing/shortness of breath. benzonatate (TESSALON PERLES) 100 mg capsule Take 2 capsules by mouth three times a day as needed. metroNIDAZOLE (METROGEL VAGINAL) 0.75 % (37.5mg/5 gram) Vaginal Gel Use 1 applicator twice weekly x 6 months. famotidine (PEPCID) 20 mg tablet Take 1 tablet by mouth at bedtime as needed. nitrofurantoin (MACRODANTIN) 50 mg capsule Take 1 capsule by mouth as needed (POST COITAL). rizatriptan (MAXALT) 10 mg tablet Take 1 tablet by mouth as directed. at onset of headache. May repeat after 2 hours. Do not exceed 20 mg per day. (Patient not taking: No sig reported) No current facility-administered medications for this visit. ALLERGIES: ALLERGIES Allergen Reactions Augmentin [Amoxicil* Diarrhea Seasonal Allergies Intolerance VITALS: BP 134/100 Pulse 92 Temp 36.5 C (97.7 F) Resp 20 Wt 84.9 kg (187 lb 3.2 oz) LMP 07/01/2022 (Approximate) SpO2 100% BMI 30.21 kg/m PHYSICAL EXAM: GEN: mildly ill appearing HEENT: PERRL, EOMI, conjunctiva clear Ears: canals clear. TMs without erythema, bulge, or effusion Sinuses: non-tender frontal sinus, non-tender maxillary sinuses Throat: moist mucous membranes, mild erythema, no exudate, hoarse voice Neck: supple, no thyromegaly, no lymphadenopathy HEART: regular rate and rhythm, no murmurs LUNGS: clear to auscultation, no wheezes or crackles, no increased WOB ASSESSMENT/PLAN: 1. Subacute cough - ICD9: 786.2, ICD10: R05.2 (primary diagnosis) 2. Hemoptysis - ICD9: 786.30, ICD10: R04.2 3. Hoarse voice quality - ICD9: 784.42, ICD10: R49.0 - XR CHEST 2V FRONTAL/LAT - will return for xray Monday when it is available. Follow up with primary care recommended for symptoms persistent for almost 2 months and history of possible mucus plug and hemoptysis. 4. Asthma with acute exacerbation, unspecified asthma severity, unspecified whether persistent - ICD9: 493.92, ICD10: J45.901 - PREDNISONE 10 MG TABLET taper 5. Acute non-recurrent sinusitis, unspecified location - ICD9: 461.9, ICD10: J01.90 - DOXYCYCLINE MONOHYDRATE 100 MG CAPSULE 6. Mild persistent asthma without complication - ICD9: 493.90, ICD10: J45.30 Refill - ALBUTEROL SULFATE HFA 90 MCG/ACTUATION AEROSOL INHALER César Fernandez MD documented in this encounter [facility] 05-15-2023 Miscellaneous Notes Called patient. Verified name and date of . Scheduled appointment. Jennifer Doe LPN Images from the original note were not included. Dilip Loving PA-C [facility] Urology Pool 3 days ago Not seen in over a year, need visit and urine testing documented in this encounter [facility] 05-08-2023 Miscellaneous Notes Pharmacy verified in [facility] Patient has been identified by name and date of : Yes Patient aware RX will be sent to pharmacy. No need to notify patient. Patient phones for refill(s): Requested Prescriptions Pending Prescriptions Disp Refills fluticasone-salmeterol (ADVAIR DISKUS) 100-50 mcg/dose inhaler 60 Each 11 Sig: Inhale 1 Puff as instructed two times a day. Date of last office visit : 07/25/2022 Date of next office visit : 07/03/2023 Last 2 Encounter Wt Readings: Date: Wt: 04/02/2023 82.5 kg (181 lb 12.8 oz) 09/20/2022 90.3 kg (199 lb) Not applicable Please advise. Reina Null documented in this encounter [facility] 04-12-2023 Miscellaneous Notes Pharmacy verified in [facility] Patient has been identified by name and date of : Yes Patient aware RX will be sent to pharmacy. No need to notify patient. Pharmacy phones for refill(s): Requested Prescriptions Pending Prescriptions Disp Refills albuterol HFA (VENTOLIN HFA) 90 mcg/actuation inhaler 18 g 0 Sig: Inhale 2 Puffs as instructed every 4 hours as needed for wheezing/shortness of breath. Date of last office visit : 07/25/2022 Date of next office visit : Visit date not found Last 2 Encounter Wt Readings: Date: Wt: 04/02/2023 82.5 kg (181 lb 12.8 oz) 09/20/2022 90.3 kg (199 lb) Not applicable Please advise. Michelle Brown LPN documented in this encounter [facility] 04-02-2023 History of Present illness Narrative This note was created using [employer]. Subjective Abdoul Faith is a 42 year old female. HPI Presents with cough, wheezing, shortness of breath and congestion over the past 2 weeks. She states this started off with sinus pressure and a sore throat. That has improved but is now settled in her chest. She does have a history of asthma and has been using her inhaler and nebulizer more. No fever. No chest pain. No diarrhea or vomiting. She used multiple [id number] cough and cold medicines without relief. She did do a home COVID test which was negative Review of Systems Constitutional: Negative. HENT: Positive for congestion and sore throat. Negative for ear pain. Respiratory: Positive for cough, shortness of breath and wheezing. Cardiovascular: Negative. Gastrointestinal: Negative. Genitourinary: Negative. Musculoskeletal: Negative. All other systems reviewed and are negative. PAST MEDICAL HISTORY Diagnosis Date Human papillomavirus in conditions classified elsewhere and of unspecified site Menorrhagia resolved with ablation Unspecified asthma(493.90) Current Outpatient Medications Medication Sig Dispense Refill albuterol HFA (VENTOLIN HFA) 90 mcg/actuation inhaler Inhale 2 Puffs as instructed every 4 hours as needed for wheezing/shortness of breath. 18 g 0 metroNIDAZOLE (METROGEL VAGINAL) 0.75 % (37.5mg/5 gram) Vaginal Gel Use 1 applicator twice weekly x 6 months. 70 g 5 famotidine (PEPCID) 20 mg tablet Take 1 tablet by mouth at bedtime as needed. 30 tablet 5 fluticasone-salmeterol (ADVAIR DISKUS) 100-50 mcg/dose inhaler Inhale 1 Puff as instructed twice daily. 60 Each 11 nitrofurantoin (MACRODANTIN) 50 mg capsule Take 1 capsule by mouth as needed (POST COITAL). 30 capsule 3 doxycycline monohydrate 100 mg tablet Take 1 tablet by mouth two times a day for 5 days. 10 tablet 0 predniSONE (DELTASONE) 20 mg tablet Take 2 tablets by mouth once daily for 5 days. 10 tablet 0 benzonatate (TESSALON PERLES) 100 mg capsule Take 2 capsules by mouth three times a day as needed. 30 capsule 0 rizatriptan (MAXALT) 10 mg tablet Take 1 tablet by mouth as directed. at onset of headache. May repeat after 2 hours. Do not exceed 20 mg per day. (Patient not taking: No sig reported) 10 tablet 6 No current facility-administered medications for this visit. PAST SURGICAL HISTORY Procedure Laterality Date ESSURE 2012 OFFICE ENDOMETRIAL ABLATION 2012 UNSPECIFIED ORAL SURGERY PROCEDURE, BY REPORT [place] teeth FAMILY HISTORY Problem Relation Age of Onset other (pulmonary issues) Mother Asthma Father Seizures Maternal Grandmother Emphysema Paternal Grandmother Arthritis Maternal Aunt Rheumatoid Social History Tobacco Use Smoking status: Former Packs/day: 0.50 Years: 10.00 Additional pack years: 0.00 Total pack years: 5.00 Types: Cigarettes Quit date: 05/05/2014 Years since quittin.9 Smokeless tobacco: Never Vaping Use Vaping Use: Former Substance Use Topics Alcohol use: Yes Comment: socially, rare Drug use: No Objective BP 118/80 Pulse 100 Temp 37.1 C (98.8 F) Resp 20 Wt 82.5 kg (181 lb 12.8 oz) LMP 07/01/2022 (Approximate) SpO2 99% BMI 29.34 kg/m Physical Exam Vitals reviewed. Constitutional: Appearance: Normal appearance. HENT: Head: Normocephalic and atraumatic. Right Ear: Tympanic membrane, ear canal and external ear normal. Left Ear: Tympanic membrane, ear canal and external ear normal. Nose: Congestion present. Mouth/Throat: Mouth: Mucous membranes are moist. Pharynx: Oropharynx is clear. Cardiovascular: Rate and Rhythm: Normal rate and regular rhythm. Heart sounds: Normal heart sounds. Pulmonary: Effort: Pulmonary effort is normal. Breath sounds: Wheezing present. No rhonchi or rales. Skin: General: Skin is warm and dry. Neurological: Mental Status: She is alert. Assessment and Plan ASSESSMENT/PLAN: 1. LRTI (lower respiratory tract infection) - ICD9: 519.8, ICD10: J22 We will treat with doxycycline, prednisone and Tessalon. Discussed that x-ray is not available today. If she is not improving with this treatment recommend being seen again for potential chest x-ray. Patient agreeable with plan. Aminah Yo PA-C documented in this encounter [facility] 10-13-2022 Miscellaneous Notes Patient phones requesting refills as follows: LAST REFILL 07/25/22 LAST OV 07/25/22 Requested Prescriptions Pending Prescriptions Disp Refills albuterol HFA (VENTOLIN HFA) 90 mcg/actuation inhaler 18 g 0 Sig: Inhale 2 Puffs as instructed every 4 hours as needed for wheezing/shortness of breath. Please review and advise. Chloe Waddell LPN documented in this encounter [facility] 09-21-2022 Miscellaneous Notes Spoke with patient. Given message from provider's office. Patient verbalizes understanding. Apoorva Henning RN Pt was notified of the results. Pt verbalized understanding. Carla Cazares MA Please call patient and let know their urine culture did not show an infection. if antibiotics are helping finish those, otherwise follow up with pcp with further symptoms. And for the blood in urine. documented in this encounter [facility] 07-25-2022 History of Present illness Narrative Images from the original note were not included. [facility] CARE SERVICE DATE: 07/25/2022 PATIENT NAME: Abdoul Faith PRIMARY CARE PHYSICIAN: Ila Canales MD Subjective CHIEF COMPLAINT: Patient presents with: Chest Pain HISTORY OF PRESENT ILLNESS: Ms. Faith is a 41 year old female who presents with annual physical Chest pain Endorses intermittent sharp chest pain. Worsens at night. No triggers of exertion. Depression Endorses depression. Has taken citalopram in 2013. States that citalopram made her feel fatigue and down. Endorses mood instability with days of highs and lows. Leg swelling Reports leg swelling. States that she drinks more water. 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 Patient uses metrogel vaginal gel. Follows gynecology. Asthma Compliant with Albuterol as needed and Advair daily. Tonsils Endorses tonsil swelling with a productive phlegm. Health maintenance: Due for depression assessment Due for spirometry Due for hepatitis B vaccine All medical history reviewed and updated in electronic record. PAST MEDICAL HISTORY Diagnosis Date Human papillomavirus in conditions classified elsewhere and of unspecified site Menorrhagia resolved with ablation Unspecified asthma(493.90) PAST SURGICAL HISTORY Procedure Laterality Date ESSURE 2012 OFFICE ENDOMETRIAL ABLATION 2012 UNSPECIFIED ORAL SURGERY PROCEDURE, BY REPORT [place] teeth FAMILY HISTORY Problem Relation Age of Onset other (pulmonary issues) Mother Asthma Father Seizures Maternal Grandmother Emphysema Paternal Grandmother Arthritis Maternal Aunt Rheumatoid Social History Tobacco Use Smoking status: Former Packs/day: 0.50 Years: 10.00 Pack years: 5.00 Types: Cigarettes Quit date: 05/05/2014 Years since quittin.2 Smokeless tobacco: Never Vaping Use Vaping Use: Former Substance Use Topics Alcohol use: Yes Comment: socially, rare Drug use: No MEDICATIONS: Current Outpatient Medications on File Prior to Visit Medication Sig ibuprofen (MOTRIN) 800 mg tablet Take 800 mg by mouth every 6 hours as needed. albuterol HFA (VENTOLIN HFA) 90 mcg/actuation inhaler inhale 2 puffs by mouth and INTO THE LUNGS every 6 hours if needed for wheezing and shortness of breath fluticasone-salmeterol (ADVAIR DISKUS) 100-50 mcg/dose inhaler inhale 1 puff by mouth and INTO THE LUNGS twice a day as directed nitrofurantoin (MACRODANTIN) 50 mg capsule Take 1 capsule by mouth as needed (POST COITAL). metroNIDAZOLE (METROGEL VAGINAL) 0.75 % Vaginal Gel Use 1 applicator twice weekly x 6 months. amitriptyline (ELAVIL) 25 mg tablet Take 1 tablet by mouth daily at bedtime. (Patient not taking: Reported on 07/25/2022) rizatriptan (MAXALT) 10 mg tablet Take 1 tablet by mouth as directed. at onset of headache. May repeat after 2 hours. Do not exceed 20 mg per day. (Patient not taking: No sig reported) loratadine (CLARITIN) 10 mg tablet Take 1 tablet by mouth once daily. (Patient not taking: Reported on 07/25/2022) JONG WOMEN 15 billion cell cap TAKE 1 CAPSULE BY MOUTH EVERY DAY. TAKE AT LEAST 1 TO 2 HOURS BEFOR OR AFTER ANTIBIOTIC. KEEP REFRIGERATED (Patient not taking: No sig reported) No current facility-administered medications on file prior to visit. ALLERGIES Allergen Reactions Augmentin [Amoxicil* Diarrhea Environmental [Othe* REVIEW OF SYSTEMS: ROS: +productive cough, chest pain, and depression. No TIA's or unusual headaches, no dysphagia. No dyspnea. No abdominal pain, change in bowel habits, black or bloody stools. No urinary tract symptoms. No new or unusual musculoskeletal symptoms. Objective PHYSICAL EXAM: BP 119/73 Pulse 82 Ht 167.6 cm (5' 6") Wt 90.3 kg (199 lb) LMP 07/01/2022 (Approximate) SpO2 97% BMI 32.12 kg/m Body mass index is 32.12 kg/m . General: Alert and oriented, no distress, pleasant and cooperative. Heart: Regular, normal S1 and S2, no murmurs, rubs, or gallops Lungs: Clear to auscultation bilaterally Abdomen: Benign Extremities: Feet/ankles without edema, posterior tibial pulses full and symmetrical Diagnostic tests reviewed for today's visit: Component Latest Ref Rng & Units 07/01/2021 Protein, Total 6.3 - 8.0 g/dL 6.7 Albumin 3.9 - 4.9 g/dL 4.5 Calcium 8.5 - 10.2 mg/dL 9.4 Bilirubin, Total 0.2 - 1.3 mg/dL <0.2 (L) Alkaline Phosphatase 34 - 123 U/L 52 AST 13 - 35 U/L 14 Glucose 74 - 99 mg/dL 93 BUN 7 - 21 mg/dL 21 Creatinine 0.58 - 0.96 mg/dL 0.72 Sodium 136 - 144 mmol/L 136 Potassium 3.7 - 5.1 mmol/L 4.3 Chloride 97 - 105 mmol/L 104 CO2 22 - 30 mmol/L 21 (L) Anion Gap 9 - 18 mmol/L 11 ALT 7 - 38 U/L 14 eGFR- >60 eGFR-All Other Races . >60 WBC 3.70 - 11.00 k/uL 9.41 RBC 3.90 - 5.20 m/uL 4.38 Hemoglobin 11.5 - 15.5 g/dL 12.7 Hematocrit 36.0 - 46.0 % 39.1 MCV 80.0 - 100.0 fL 89.3 MCH 26.0 - 34.0 pG 29.0 MCHC 30.5 - 36.0 g/dL 32.5 RDW-CV 11.5 - 15.0 % 12.2 Platelet Count 150 - 400 k/uL 262 MPV 9.0 - 12.7 fL 10.5 Absolute nRBC <0.01 k/uL <0.01 TSH 0.270 - 4.200 uU/mL 1.870 Assessment/Plan ASSESSMENT/PLAN: Well adult 1. Mild persistent asthma without complication - ICD9: 493.90, ICD10: J45.30 (primary diagnosis) Mild intermittent Asthma stable - Continue current meds - Avoidance of triggers recommended - ALBUTEROL SULFATE HFA 90 MCG/ACTUATION AEROSOL INHALER 2. 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 Atypical chest pain - ICD9: 786.59, ICD10: R07.89 Atypical chest pain Plan: Routine lab work (cbc, cmp, tsh, ekg) EKG is done normal. With epigastric pain on palpation will treat her for reflux. 4. Adjustment disorder with mixed anxiety and depressed mood - ICD9: 309.28, ICD10: F43.23 Comment: patient is not interested in medication Plan: reccommended to see a counselor , work on healthy lifestyle, and not just continue with status quo Follow up if symptoms worsen ATTESTATION: By signing my name below, Shayla Quinn, attest that this documentation has been prepared under the direction and in the presence of Ila Canales MD. Electronically signed:Marilynn Nunez, July 25, 2022 3:11 PM Provider Attestation: Ila Quinn MD, personally performed the services described in this documentation. All medical record entries made by the montrellibe were at my direction and in my presence. I have reviewed the chart and discharge instructions (if applicable) and agree that the record reflects my personal performance and is accurate and complete. Electronically Signed: Ila Canales MD July 25, 2022 5:16 PM documented in this encounter [facility] 06-29-2022 Miscellaneous Notes Third attempt to reach; called patient at [phone]. Left message on voicemail for patient to return call or check MyChart for message from provider. No contact made after 3 attempts. MyChart message sent. Called patient at [phone], left message on voicemail for patient to return call for message from provider. Left message for patient to return call. Let patient know that her screening mammogram was normal and no abnormalities in the left breast to identify why she's having pain there. The radiologist recommended additional imaging in the left breast due to patient's report of pain. Orders placed, please assist with scheduling. Ginny Gongora APRN.SIDNEY documented in this encounter [facility] 06-25-2022 Miscellaneous Notes June 27, 2022 PID: [id number] Abdoul Faith [address] [place] [address] Dear Ms. Faith, Your recent breast imaging exam on 06/24/2022 showed a possible finding that requires additional imaging studies for a complete evaluation. Most such findings are probably benign (not cancer). Your mammogram demonstrates that you have dense breast tissue, which could hide abnormalities. Dense breast tissue, in and of itself, is a relatively common condition. Therefore, this information is not provided to cause undue concern; rather, it is to raise your awareness and promote discussion with your health care provider regarding the presence of dense breast tissue in addition to other risk factors. If you have a healthcare provider who ordered/prescribed your screening mammogram: Please call [phone] or [phone]: [phone] to schedule an appointment for your additional imaging (if you have not already done so). If you DO NOT have a healthcare provider (ie you did not have an order/prescription for your screening mammogram): Please call to schedule an appointment for your additional imaging (if you have not already done so). You must have an order/prescription from your physician when calling to schedule your appointment. If your order/prescription is not electronic, you must bring the hard copy with you on the day of your exam to avoid delays. Your imaging studies and reports are kept on file at [facility] as part of your permanent medical record, and are available for your continuing care. Thank you for allowing us to help in meeting your health care needs. Sincerely, Dr. Escobedo Interpreting Radiologist [facility] (Additional imaging) documented in this encounter [facility] 11-15-2021 History of Present illness Narrative Radiology Service Progress Note PATIENT NAME: Abdoul Faith DATE OF SERVICE: November 15, 2021 TIME: 3:00 PM PATIENT IDENTITY VERIFICATION COMPLETED USING TWO (2) IDENTIFIERS: Name and Date of confirmed by patient verbally. FALL SCREENING: Has the patient had 2 falls in the last year or 1 fall with injury or currently using an Ambulatory Assistive Device (Walker, Cane, Wheelchair, Crutches, etc.)? No PATIENT GENDER DATA: Female. status: : No status: NO. PATIENT RELEVANT IMPLANT DATA REVIEWED: Not Applicable RADIOLOGY DEPARTMENT: CT; Exam(s) Completed: Abdomen/Pelvis PERIPHERAL IV DATA: Not applicable SIGNED BY: RT Anahi(R) November 15, 2021 3:00 PM documented in this encounter [facility] Discharge summary Note Date/Time March 13, 2025 12:58pm [facility] Medical Records Department [address] [place] [address] Emergency Department Summary 03/13/25 MR#: [id number] Acct: [id number] Name: ABDOUL FAITH Rep #:[id number] : 1980 44 From: Derek Sanchez MD PCP: Dr. Rj Canales MD Status:DEP ER Location: ED HPI HPI - GI History of Present Illness Chief Complaint: Abd Pain Informant: patient Abdominal Pain/Flank Pain Onset: Days Context: Gradual Onset Timing: Continuous Quality: Aching Location: LUQ Current Severity: Moderate Maximum Severity: Moderate Worsened by: Nothing Relieved by: Nothing Nausea/Vomiting/Emesis GI Symptom: Positive for Nausea; Negative for Vomiting Severity: Mild Diarrhea/Melena/Hematochezia GI Symptom: Negative for Diarrhea, Melena or Hematochezia Associated Symptoms Associated Symptoms: Positive for Dysuria; Negative for Hematuria or Urgency Narrative Narrative: Patient is a 44-year-old female presenting with lower abdominal pain and dysuriafor 4 days. - Reports onset of cramping lower abdominal pain 4 days ago, described as intermittent sharp "lightning bolt" pain. - Initially suspected a UTI, given her history of recurrent UTIs, and took unspecified medication for it without relief. - Associated symptoms include urinary pressure and cloudy urine. - Denies fever, chills, emesis, diarrhea, or constipation. - Pain is constant, with no identified alleviating or exacerbating factors; has tried Tylenol, ibuprofen, and an unspecified medication for UTI without relief. - Denies any previous diagnosis of diverticulitis. - No history of abdominal surgeries; has had an ablation and tubal blockage in the past. - No recent hospital admissions. Prior similar symptoms: Yes Recent Illness/Hospitalization: No PFSH PFSH Medical History Cardiac murmur Dyspnea Chest discomfort Fatigue Kidney stones Obesity (BMI 30.0-34.9) Depression Lightheadedness Palpitations Environmental allergies Asthma Migraine Anxiety Home Medications ?Medication ?Instructions ?Recorded ?Last Taken ?Type albuterol sulfate 90 mcg/actuation 1 - 2 puff inhalati on Q6H PRN PRN 06/17/16 Unknown History aerosol inhaler (Ventolin HFA) Sob &/Or Wheezing famotidine 20 mg tablet (Pepcid) 20 mg PO QHS 07/23/24 Unknown History bupropion HCl 150 mg tablet,12 hr 150 mg PO BID Unknown History sustained-release diazepam 5 mg tablet 5 mg PO Q8 PRN Muscle Spasm #20 10/07/24 Unknown Rx tabs fluticasone 100 mcg-salmeterol 50 1 inh inhalation MECHE LY 10/07/24 Unknown History mcg/dose blistr powdr for inhalation (Advair Diskus) ibuprofen 600 mg tablet 600 mg PO Q6H PRN PRN pain # 20 10/07/24 Unknown Rx TABLETS cephalexin 500 mg capsule 500 mg PO Q6 7 days #28 CAPS ULES 03/13/25 Unknown Rx fluconazole 200 mg tablet 200 mg PO DAILY #1 TAB 03/13 Unknown Rx tamsulosin 0.4 mg capsule (Flomax) 0.4 mg PO DAILY 3 d ays #3 caps 03/13/25 Unknown Rx Allergy/AdvReac Type Severity Reaction Status Date / Time amoxicillin (From Augmentin) AdvReac Mild Abd Verified 03/13/25 09:24 cramps/diarrhea clavulanic acid (From AdvReac Mild Abd Verified 03/13/25 09:24 Augmentin) cramps/diarrhea Family History Father Asthma Obesity Grandfather COPD (chronic obstructive pulmonary disease) Obesity Son Asthma Mother Obesity Surgical History Hx of oral surgery Social History household members: none Smoking Status: Current every day smoker tobacco type: cigarettes and e-cigarettes Electronic Cigarette Use: with nicotine alcohol intake: current alcohol intake frequency: holidays/special occasions only substance use type: does not use ROS ROS ED ROS Narrative Left lower quadrant abdominal pain. Nausea. No vomiting. No diarrhea or fever. No constipation. No fever or chills. Positive dysuria. Constitutional Constitutional ED: Denies chills or fever(s) ENT ENT ED: Denies ear pain Cardiovascular Cardiovascular: Denies chest pain Respiratory/Chest Respiratory/Chest: Denies cough Gastrointestinal Gastrointestinal: Reports abdominal pain and nausea; Denies constipation, diarrhea, melena or vomiting Genitourinary Genitourinary ED: Reports dysuria Musculoskeletal Musculoskeletal: Denies arthralgias or back pain Integumentary Denies abscess Neurologic Neurologic: Denies headache(s) Psychiatric Psychiatric: Denies anxiety Endocrine Endocrinology: Denies polydipsia Hematologic/Lymphatic Hematologic/Lymphatic: Denies easy bleeding or easy bruising Allergic/Immunologic Allergic/Immunologic ED: Denies mouth swelling, tongue swelling or urticaria EXAM Physical Exam Narrative Exam Narrative: 41-year-old female sitting upright in bed. Vital signs stable afebrile. No acute distress other than having some pain. H EENT exam pupils round react to light. Moist mucous membranes. Neck nontender. Lungs clear. Heart regular rhythm no murmur rate about 70. Chest wall ribs nontender. Back nontender. Abdomen left lower quadrant tenderness. No rebound guarding or rigidity. No obstruction or distention. No hernia or mass. Right upper right lower quadrantunremarkable. Moving all 4 extremities. Normal strength. Nontender no edema. Awake and alert. No focal motor deficits. Const Vital Signs: 03/13/25 09:25 03/13/25 11:24 Temperature 98 F Temperature Source Oral Pulse Rate 67 64 Respiratory Rate 18 18 Blood Pressure 139/91 H 136/78 H Blood Pressure Mean 107 97 Pulse Ox 98 97 Oxygen Delivery Method Room Air Room Air MDM MDM MDM Narrative Medical decision making narrative: 44-year-old female left lower quadrant abdominal pain differential would includeUTI, kidney stone, diverticulitis. She had both a uterine ablation and tubal ligation I do not think she is . She be treated with IV morphine, Toradol for pain. And Zofran for nausea. CAT scan and labs will be obtained. Repeat exam patient was given second dose of pain medication currently she is resting comfortably 12:30 PM. I have a call out to the urologist to discuss hercase. Dr. Johana Ritter and I discussed the patient's exam, past medical history and current labs and CT. She is comfortable with her being discharged home. Patient be placed on Keflex 4 times a day. She did not want any narcoticpain medication that is the patient did not. Placed on Flomax. Outpatient follow-up with the urologist. Patient is comfortable plan and wants to be discharged to home. History & Record Review Discussion w/independent historian: Patient Additional record(s) reviewed:: Prior inpatient record, Prior outpatient record,Prior ED visit and Prior labs Lab Data Attestation: I reviewed the patient's lab results. Lab results narrative: CBC normal. White count of 7. H&H 14 and 42. Platelets 329. Electrolytes show gap 9. Normal BUN and creatinine 9 and 0.8. Glucose 94. Serum Prag negative. Urinalysis positive nitrates. 10-25 white cells. 1+ bacteria. Consistent witha UTI. CAT scan shows a 6 mm left UVJ stone with hydroureter and hydronephrosis consistent with obstruction. Labs: Laboratory Results - last 24 hr 03/13/25 03/13/25 10:00 10:06 WBC 7.3 RBC 4.92 Hgb 14.4 Hct 42.2 MCV 85.8 MCH 29.3 MCHC 34.1 RDW Std Deviation 37.8 RDW Coeff of Wilfredo 12.0 Plt Count 329 MPV 9.2 Immature Gran % (Auto) 0.400 Neut % (Auto) 71.4 H Lymph % (Auto) 17.5 L [place] % (Auto) 6.3 Eos % (Auto) 4.0 Baso % (Auto) 0.4 Absolute Neuts (auto) 5.2 Absolute Lymphs (auto) 1.27 Nucleated RBC % 0 Sodium 138 Potassium 3.9 Chloride 104 Carbon Dioxide 25.2 Anion Gap 9 BUN 9 Creatinine 0.85 Estim Creat Clear Calc 89.15 Est GFR (MDRD) Non-Af 87 BUN/Creatinine Ratio 11.1 Glucose 94 Calcium 9.0 Serum , Qual NEGATIVE Urine Color Yellow Urine Clarity Sl. Cloudy Urine pH 6.0 Ur Specific [place] 1.020 Urine Protein 30 H Urine Glucose (UA) Normal Urine Ketones Negative Urine Occult Blood 50 H Urine Nitrite Positive H Urine Bilirubin 1 H Urine Urobilinogen 1 H Ur Leukocyte Esterase 500 H Urine RBC 0 SEEN Urine WBC 10-25 SEEN Ur Squamous Epith Cells 5-10 SEEN Urine Bacteria 1+ Urine Mucus 0 SEEN Radiography Diagnostic Testing: Clinical Impression(s) from Imaging Studies Abdomen/Pelvis CT 03/13/25 09:39 IMPRESSION: Mild hydronephrosis and hydroureter related to a 6 mm calculus in the distal ureter on the left side just proximal to the ureterovesical junction. Nonobstructing calculus right kidney. Normal appendix Cholelithiasis Reading Location: [facility] Discharge Plan Triage Chief Complaint: Abd Pain ED Provider: Derek Sanchez Dx/Rx/DC Orders Clinical Impression: Acute left flank pain, Kidney stone on left side, UTI (urinary tract infection) Instructions: UTIs, ED Kidney Stone with Pain Prescriptions: New cephalexin 500 mg capsule 500 mg PO Q6 7 Days Qty: 28 0RF fluconazole 200 mg tablet 200 mg PO DAILY Qty: 1 0RF Rx Instructions: Take after you finish taking the antibiotics to prevent a yeast infection. tamsulosin [Flomax] 0.4 mg capsule 0.4 mg PO DAILY 3 Days Qty: 3 0RF No Action famotidine [Pepcid] 20 mg tablet 20 mg PO QHS bupropion HCl 150 mg tablet sustained-release 12 hr 150 mg PO BID albuterol sulfate [Ventolin HFA] 1 INHALER inhaler 1 - 2 puff inhalation Q6H PRN PRN (Reason: Sob &/Or Wheezing) fluticasone propion-salmeterol [Advair Diskus] 100-50 mcg/dose blister with device 1 inh inhalation DAILY ibuprofen 600 mg tablet 600 mg PO Q6H PRN PRN (Reason: pain) Qty: 20 0RF diazepam 5 mg tablet 5 mg PO Q8 PRN (Reason: Muscle Spasm) Qty: 20 0RF Primary Care Provider: Rj Canales Referrals: Edilma Ritter MD [Med Staff - Active Staff, Urology] - As soon as possible [facility],Out of [Non-Staff, Medical] Activity Restrictions/Additional Instructions: You have a left kidney stone almost ready to enter your bladder. Once it does that you feel a lot better. You also have a urinary tract infection. Motrin and Tylenol for pain for the stone. The antibiotic Keflex 4 times a day till gone. Flomax once daily help you pass the stone. Diflucan when you are done with antibiotic to help prevent or treat a yeast infection. If you are feeling worse increasing pain, fever, intractable vomiting or just feeling worse return. Call and follow-up with Dr. Edilma Ritter of urology. Print Language: Peruvian Disposition Disposition: Home, Self Care What to do if you have Problems For any increased pain, shortness of breath, bleeding, nausea or vomiting, chestpain, or any unexpected problems, contact your Primary Care Provider. Call [facility] ([phone]) or report to the closest Emergency Room. Call 911 if necessary. 03/13/25 1713 <Electronically signed by Derek Sanchez MD> Cosigner Signature (if applicable): CC: Dr. Rj Canales MD ~ Signed [facility] Work Phone: Evaluation note* Diagnosis Recurrent UTI (urinary tract infection) Urinary tract infection, site not specified [facility] [place] [facility] Diagnosis Encounter for screening mammogram for breast cancer [facility] [place] [facility]* Diagnosis Inconclusive mammogram- Primary [facility] [place] [facility]* Diagnosis Well adult exam- Primary Routine general medical examination at a health care facility Mild persistent asthma without complication Unspecified asthma Vaginal bacteriosis Vaginitis and vulvovaginitis, unspecified Atypical chest pain Other chest pain Adjustment disorder with mixed anxiety and depressed mood Screening for lipid disorders Obesity, Class I, BMI 30-34.9 Obesity, unspecified [facility] Diagnosis Mild persistent asthma without complication Unspecified asthma [facility]* Diagnosis LRTI (lower respiratory tract infection)- Primary Other diseases of respiratory system, not elsewhere classified [facility] [place] [facility]* Diagnosis Mild persistent asthma without complication Unspecified asthma [facility] [place] [facility]* Diagnosis Recurrent UTI (urinary tract infection) Urinary tract infection, site not specified [facility] [place] [facility]* Diagnosis Subacute cough- Primary Cough Hemoptysis Hemoptysis, unspecified Hoarse voice quality Dysphonia Asthma with acute exacerbation, unspecified asthma severity, unspecified whether persistent Acute non-recurrent sinusitis, unspecified location Mild persistent asthma without complication Unspecified asthma [facility] [place] noteNo assessment information availableWCity [facility] Work Phone: Evaluation note* Diagnosis Encounter for screening mammogram for breast cancer [facility] [place] [facility]* Diagnosis Well adult exam- Primary Routine general medical examination at a health care facility Mild persistent asthma without complication Unspecified asthma Neck pain on left side Cervicalgia Cervicogenic headache Headache Palpitations Atypical chest pain Other chest pain Systolic click Undiagnosed cardiac murmurs Chronic foot pain, left Tetanus-diphtheria (Td) vaccination Need for prophylactic vaccination with tetanus-diphtheria (Td) [facility] Diagnosis Encounter for gynecological examination (general) (routine) with abnormal findings- Primary Abdominal bloating Flatulence, eructation, and gas pain Vaginal discharge Leukorrhea, not specified as infective Malaise and fatigue Other malaise and fatigue Screening for cervical cancer Screening for malignant neoplasm of the cervix Encounter for screening for human papillomavirus (HPV) Special screening examination for human papillomavirus (HPV) Encounter for screening mammogram for breast cancer Screen for STD (sexually transmitted disease) Screening examination for venereal disease Screening cholesterol level Screening for lipoid disorders Screening for deficiency anemia Screening for other and unspecified deficiency anemia Screening for diabetes mellitus Screening for metabolic disorder Screening for thyroid disorder Encounter for vitamin deficiency screening Screening for other and unspecified endocrine, nutritional, metabolic, and immunity disorders Class 1 obesity with body mass index (BMI) of 31.0 to 31.9 in adult, unspecified obesity type, unspecified whether serious comorbidity present [facility] [place] [facility]* Diagnosis Palpitations- Primary Atypical chest pain Other chest pain Systolic click Undiagnosed cardiac murmurs FINLEY (dyspnea on exertion) Other dyspnea and respiratory abnormality Daytime hypersomnolence Hypersomnia, unspecified [facility] [place] [facility]* Diagnosis Gastroesophageal reflux disease, unspecified whether esophagitis present- Primary Elevated LDL cholesterol level Pure hypercholesterolemia Mild persistent asthma without complication Unspecified asthma Vitamin D deficiency Unspecified vitamin D deficiency Malaise and fatigue Other malaise and fatigue Migraine with aura and without status migrainosus, not intractable Migraine with aura, without mention of intractable migraine without mention of status migrainosus Craving for particular food Class 1 obesity with body mass index (BMI) of 31.0 to 31.9 in adult, unspecified obesity type, unspecified whether serious comorbidity present [facility] [place] [facility]* Diagnosis Gastroesophageal reflux disease, unspecified whether esophagitis present- Primary [facility] [place] [facility]* Diagnosis Gastroesophageal reflux disease, unspecified whether esophagitis present [facility] [place] [facility]* Diagnosis Mild persistent asthma without complication Unspecified asthma [facility]* Diagnosis Subacute cough Cough Hemoptysis Hemoptysis, unspecified documented in this encounter [facility] note* Diagnosis Depression, unspecified depression type- Primary Mild persistent asthma without complication Unspecified asthma Obesity (BMI 30.0-34.9) Obesity, unspecified Palpitations Lightheadedness Dizziness and giddiness documented [facility] this [facility] [place] [facility]* Diagnosis Mild persistent asthma without complication Unspecified asthma documented in this encounter [facility] note* Diagnosis Mild persistent asthma without complication- Primary Unspecified asthma documented in this encounter [facility] [place] [facility]* Diagnosis Depression, unspecified depression type documented in this encounter [facility] note* Diagnosis Mild persistent asthma without complication (HCC) Unspecified asthma [facility] instructions[facility] Instructions You have a left kidney stone almost ready to enter your bladder. Once it does that you feel a lot better. You also have a urinary tract infection. Motrin and Tylenol for pain for the stone. The antibiotic Keflex 4 times a day till gone. Flomax once daily help you pass the stone. Diflucan when you are done with antibiotic to help prevent or treat a yeast infection. If you are feeling worse increasing pain, fever, intractable vomiting or just feeling worse return. Call and follow-up with Dr. Edilma Ritter of urology.[facility] Work Phone: [facility] Diagnostic Procedure Only (Routine) - Pending Review Specialty Diagnoses / Procedures Referred By Renzo shrestha Referred To Contact [facility] Diagnoses Encounter for screening mammogram for breast cancer Procedures PERCY SCREENING SCREENING MAMMOGRAPHY BI 2-VIEW BREAST INC Ila He MD [address] [facility] [place] [address] Br Imaging [address] [place] [phone] Referral ID Status Reason Start Date Expiration Date Visits Requested Visits Authorized [id number] Pending Review Auto-Generat ed Referral 12/01/2021 12/31/2022 1 1 [facility] for referral (narrative)* Diagnostic Procedure Only (Routine) - Authorized Specialty Diagnoses / Procedures Referred By Contac t Referred To Contact [facility] Diagnoses Inconclusive mammogram Procedures US BREAST LTD LT US BREAST UNI REAL TIME WITH IMAGE LIMITED Ginny Gongora APRN.CNP [address] [place] [address] Br Imaging [address] [place] [address] Referral ID Status Reason Start Date Expiration Date Visits Requested Visits Authorized [id number] Authorized Auto-Generat ed Referral 06/27/2022 07/27/2023 1 1 * Diagnostic Procedure Only (Routine) - Authorized Specialty Diagnoses / Procedures [facility] Diagnoses Inconclusive mammogram Procedures PERCY DIAGNOSTIC LT DIAGNOSTIC MAMMOGRAPHY COMPUTER-AIDED DETCJ UNI Ginny Gongora APRN.CNP [address] [place] [address] Br Imaging [address] [place] [address] Referral ID Status Reason Start Date Expiration Date Visits Requested Visits Authorized [id number] Authorized Auto-Generat ed Referral 06/27/2022 07/27/2023 1 1 [facility] for referral (narrative)* Outpatient Procedure (Routine) - Closed Specialty Diagnoses / Procedures [facility] Diagnoses Atypical chest pain Procedures ECG COMPLETE ECG ROUTINE ECG W/LEAST 12 LDS W/I&R Ila Canales MD [address] [facility] [place] [address] [facility] [place] [address] [place] [address] Referral ID Status Reason Start Date Expiration Date V isits Requested Visits Authorized [id number] Closed Auto-Generate d Referral 07/25/2022 07/25/2023 1 1 [facility] for referral (narrative)* Diagnostic Procedure Only (Routine) - Authorized Specialty Diagnoses / Procedures Referred By Renzo t Referred To Contact [facility] IM[facility] Diagnoses Encounter for screening mammogram for breast cancer Procedures PERCY SCREENING SCREENING MAMMOGRAPHY BI 2-VIEW BREAST INC CAD Ila Canales MD [address] [place] [address] [place] [address] [facility] [address] [place] [address] Referral ID Status Reason Start Date Expiration Date Visits Requested Visits Authorized [id number] Authorized Auto-Generat ed Referral 08/02/2023 08/31/2024 1 1 [facility] for referral (narrative)* Outpatient Procedure (Routine) - New Request Specialty Diagnoses / Procedures Referred By Renzo shrestha Referred To Contact [facility] Diagnoses Palpitations Atypical chest pain Systolic click Daytime hypersomnolence Procedures EXERCISE STRESS ECG (WITHOUT IMAGING) Juan Manuel Gayle DO [address] [place] [address] [address] Referral ID Status Reason Start Date Expiration Date Visits Requested Visits Authorized [id number] New Request Auto-Generat ed Referral 12/14/2023 12/13/2024 1 1 * Outpatient Procedure (Routine) - New Request Specialty Diagnoses / Procedures Referred By Renzo shrestha Referred To Contact [facility] Diagnoses Palpitations Atypical chest pain Systolic click Daytime hypersomnolence Procedures ECHO ECHO TTHRC R-T 2D W/WOM-MODE COMPL SPEC&COLR D Juan Manuel Gayle DO [address] [place] [address] [address] Referral ID Status Reason Start Date Expiration Date Visits Requested Visits Authorized [id number] New Request Auto-Generat ed Referral 12/14/2023 12/13/2024 1 1 [facility] CenterReason for referral (narrative)No reason for referral information availableWCity [facility] Work Phone: Reason for visit Narrative* Diagnostic Procedure Only (Routine) - Closed Specialty Diagnoses / Procedures Referred By Renzo shrestha Referred To Contact [facility] Diagnoses Encounter for screening mammogram for breast cancer Procedures PERCY SCREENING SCREENING MAMMOGRAPHY BI 2-VIEW BREAST INC Ila He MD [address] [facility] [address] [facility] Imaging [address] [place] [address] Referral ID Status Reason Start Date Expiration Date V isits Requested Visits Authorized [id number] Closed Auto-Generate d Referral 08/02/2023 08/31/2024 1 1 [facility] Summary Purpose Family History No Family History Records Found Relationship Condition Age at Onset Recorded Date/T rodney father Asthma Unknown Obesity Unknown grandfather Chronic obstructive pulmonary disease Unk nown son Asthma Unknown mother Obesity Unknown Advance Directives No Advanced Directives Records Found Advance Directive Response Recorded Date/ Time Living Will No May 30 023 9:09am Power of Pig Sticker No May 30, 2023 9:09am Advance Directive Response Recorded Date/ Time Do you have a Healthcare Power of Pig Sticker? No March 13, 2025 9:31am Reason for Referral Specialty Diagnoses / Procedures Referred By Renzo shrestha Referred To Contact CT IMAGING Diagnoses Recurrent UTI (urinary tract infection) Procedures CT FLANK WO IVCON CT ABD & PELVIS W/O CONTRAST Dilip Loving PA-C [address] [place] [address] Ct Imaging Referral ID Status Reason Start Date Expiration Date V isits Requested Visits Authorized [id number] Closed Auto-Generate d Referral 11/05/2021 12/20/2021 1 1 Specialty Diagnoses / Procedures Referred By Renzo shrestha Referred To Contact Diagnoses Mild persistent asthma without complication Ginny Gongora, LALA.HR PAYROLL COORDINATOR [address] [place] [address] Referral ID Status Reason Start Date Expiration Date V isits Requested Visits Authorized [id number] Pending Review 1 1 Specialty Diagnoses / Procedures Referred By Contac t Referred To Contact Diagnoses Mild persistent asthma without complication César Fernandez MD [address] [place] [address] Referral ID Status Reason Start Date Expiration Date Visits Re quested Visits Authorized [id number] Closed 1 1 Specialty Diagnoses / Procedures Referred By Contac t Referred To Contact Neurology Diagnoses Neck pain on left side Cervicogenic headache Procedures CONSULT TO NEUROLOGY OFFICE/OUTPATIENT [facility] 60 MINUTES Ila Canales MD [address] [facility] [address] Referral ID Status Reason Start Date Expiration Date Visits Requested Visits Authorized [id number] Authorized PCP Requested Referral 08/22/2023 08/21/2024 1 1 Specialty Diagnoses / Procedures Referred By Contac t Referred To Contact Cardiology Diagnoses Palpitations Atypical chest pain Systolic click Procedures CONSULT TO CARDIOLOGY OFFICE/OUTPATIENT [facility] 60 MINUTES Ila Canales MD [address] [facility] [address] Referral ID Status Reason Start Date Expiration Date Visits Requested Visits Authorized [id number] Authorized PCP Requested Referral 08/22/2023 08/21/2024 1 1 Specialty Diagnoses / Procedures Referred By Contac t Referred To Contact XR IMAGING Diagnoses Chronic foot pain, left Procedures XR FOOT GENERAL 3V AP/LAT/OBL LEFT RADEX FOOT COMPLETE MINIMUM 3 VIEWS Ila Canales MD [address] [facility] [place] [address] [place] [address] Referral ID Status Reason Start Date Expiration Date Visits Requested Visits Authorized [id number] Pending Review Auto-Generat ed Referral 08/22/2023 09/20/2024 1 1 Specialty Diagnoses / Procedures Referred By Contac t Referred To Contact Podiatry Diagnoses Chronic foot pain, left Procedures CONSULT TO PODIATRY OFFICE/OUTPATIENT [facility] 60 MINUTES Ila Canales MD [address] [facility] [place] [address] Referral ID Status Reason Start Date Expiration Date Visits Requested Visits Authorized [id number] Authorized PCP Requested Referral 08/22/2023 08/21/2024 1 1 Specialty Diagnoses / Procedures Referred By Contac t Referred To Contact [place] [facility] Diagnoses Class 1 obesity with body mass index (BMI) of 31.0 to 31.9 in adult, unspecified obesity type, unspecified whether serious comorbidity present Procedures CONSULT TO [facility] OFFICE/OUTPATIENT [facility] 60 MINUTES Nancy Viera, LALA.HR PAYROLL COORDINATOR [address] [place] [address] Nancy Viera APRN.HR PAYROLL COORDINATOR [address] [place] [address] Referral ID Status Reason Start Date Expiration Date Visits Requested Visits Authorized [id number] Authorized PCP Requested Referral Auto-Generate d Referral 09/15/2023 09/14/2024 1 1 Specialty Diagnoses / Procedures Referred By Contac t Referred To Contact [facility] Diagnoses Encounter for screening mammogram for breast cancer Procedures PERCY SCREENING SCREENING MAMMOGRAPHY BI 2-VIEW BREAST INC CAD Nancy Viera APRN.HR PAYROLL COORDINATOR [address] [place] [address] [facility] [address] [place] [address] Referral ID Status Reason Start Date Expiration Date Visits Requested Visits Authorized [id number] Pending Review Auto-Generat ed Referral 08/08/2024 10/14/2024 1 1 Specialty Diagnoses / Procedures Referred By Contac t Referred To Contact Cardiology Diagnoses Palpitations Lightheadedness Procedures CONSULT TO CARDIOLOGY OFFICE/OUTPATIENT [facility] 60 MINUTES Benigno Laguerre DO [address] [facility] [address] [place] [address] Referral ID Status Reason Start Date Expiration Date Visits Requested Visits Authorized [id number] Pending Review PCP Requested Referral 07/02/2024 07/02/2025 1 1 Specialty Diagnoses / Procedures Referred By Contac t Referred To Contact [facility] Diagnoses Mild persistent asthma without complication Procedures SPIROMETRY - BASELINE AND POST DILATOR BRNCDILAT RSPSE SPMTRY PRE&POST-BRNCDILAT ADMBenigno Oconnor DO 1 [facility] [address] [place] [address] Respiratory [place] [address] [place] [address] Referral ID Status Reason Start Date Expiration Date Visits Requested Visits Authorized [id number] New Request Auto-Generat ed Referral 07/02/2024 08/01/2025 1 1 Chief Complaint and Reason for Visit Chief Complaint SHORTNESS OF BREATH Chief Complaint Admit Date pelvic pain March 13, 2025 9: 24am Additional Source Comments INFORMATION SOURCE (unrecogn ized section and content) DATE CREATED AUTHOR 12/23/2019 [facility] DATE CREATED AUTHOR AUTHOR'S ORGANIZ ATION 01/12/2024 [facility] DATE CREATED AUTHOR AUTHOR'S ORGANIZ ATION 11/25/2024 [facility] DATE CREATED AUTHOR AUTHOR'S ORGANIZ ATION 03/22/2025 [facility] DATE CREATED AUTHOR AUTHOR'S ORGANIZ ATION 03/26/2025 [facility] Source Comments (unrecognize d section and content) In the event this informatio n is protected by the Federal Confidentiality of Alcohol and Drug Abuse Patient Records regulations: The Federal rules restrict any use of the information to criminally investigate or prosecute any alcohol or drug abuse patient.[facility] CenterIn the event this information is protected by the Federal Confidentiality of Alcohol and Drug Abuse Patient Records regulations: The Federal rules restrict any use of the information to criminally investigate or prosecute any alcohol or drug abuse patient.[facility] CenterIn the event this information is protected by the Federal Confidentiality of Alcohol and Drug Abuse Patient Records regulations: The Federal rules restrict any use of the information to criminally investigate or prosecute any alcohol or drug abuse patient.[facility] CenterIn the event this information is protected by the Federal Confidentiality of Alcohol and Drug Abuse Patient Records regulations: The Federal rules restrict any use of the information to criminally investigate or prosecute any alcohol or drug abuse patient.[facility] CenterIn the event this information is protected by the Federal Confidentiality of Alcohol and Drug Abuse Patient Records regulations: The Federal rules restrict any use of the information to criminally investigate or prosecute any alcohol or drug abuse patient.[facility] CenterIn the event this information is protected by the Federal Confidentiality of Alcohol and Drug Abuse Patient Records regulations: The Federal rules restrict any use of the information to criminally investigate or prosecute any alcohol or drug abuse patient.[facility] CenterIn the event this information is protected by the Federal Confidentiality of Alcohol and Drug Abuse Patient Records regulations: The Federal rules restrict any use of the information to criminally investigate or prosecute any alcohol or drug abuse patient.[facility] CenterIn the event this information is protected by the Federal Confidentiality of Alcohol and Drug Abuse Patient Records regulations: The Federal rules restrict any use of the information to criminally investigate or prosecute any alcohol or drug abuse patient.[facility] CenterIn the event this information is protected by the Federal Confidentiality of Alcohol and Drug Abuse Patient Records regulations: The Federal rules restrict any use of the information to criminally investigate or prosecute any alcohol or drug abuse patient.[facility] CenterIn the event this information is protected by the Federal Confidentiality of Alcohol and Drug Abuse Patient Records regulations: The Federal rules restrict any use of the information to criminally investigate or prosecute any alcohol or drug abuse patient.[facility] CenterIn the event this information is protected by the Federal Confidentiality of Alcohol and Drug Abuse Patient Records regulations: The Federal rules restrict any use of the information to criminally investigate or prosecute any alcohol or drug abuse patient.[facility] CenterIn the event this information is protected by the Federal Confidentiality of Alcohol and Drug Abuse Patient Records regulations: The Federal rules restrict any use of the information to criminally investigate or prosecute any alcohol or drug abuse patient.[facility] CenterIn the event this information is protected by the Federal Confidentiality of Alcohol and Drug Abuse Patient Records regulations: The Federal rules restrict any use of the information to criminally investigate or prosecute any alcohol or drug abuse patient.[facility] CenterIn the event this information is protected by the Federal Confidentiality of Alcohol and Drug Abuse Patient Records regulations: The Federal rules restrict any use of the information to criminally investigate or prosecute any alcohol or drug abuse patient.[facility] CenterIn the event this information is protected by the Federal Confidentiality of Alcohol and Drug Abuse Patient Records regulations: The Federal rules restrict any use of the information to criminally investigate or prosecute any alcohol or drug abuse patient.[facility] CenterIn the event this information is protected by the Federal Confidentiality of Alcohol and Drug Abuse Patient Records regulations: The Federal rules restrict any use of the information to criminally investigate or prosecute any alcohol or drug abuse patient.[facility] CenterIn the event this information is protected by the Federal Confidentiality of Alcohol and Drug Abuse Patient Records regulations: The Federal rules restrict any use of the information to criminally investigate or prosecute any alcohol or drug abuse patient.[facility] CenterIn the event this information is protected by the Federal Confidentiality of Alcohol and Drug Abuse Patient Records regulations: The Federal rules restrict any use of the information to criminally investigate or prosecute any alcohol or drug abuse patient.[facility] CenterIn the event this information is protected by the Federal Confidentiality of Alcohol and Drug Abuse Patient Records regulations: The Federal rules restrict any use of the information to criminally investigate or prosecute any alcohol or drug abuse patient.[facility] CenterIn the event this information is protected by the Federal Confidentiality of Alcohol and Drug Abuse Patient Records regulations: The Federal rules restrict any use of the information to criminally investigate or prosecute any alcohol or drug abuse patient.[facility] CenterIn the event this information is protected by the Federal Confidentiality of Alcohol and Drug Abuse Patient Records regulations: The Federal rules restrict any use of the information to criminally investigate or prosecute any alcohol or drug abuse patient.[facility] CenterIn the event this information is protected by the Federal Confidentiality of Alcohol and Drug Abuse Patient Records regulations: The Federal rules restrict any use of the information to criminally investigate or prosecute any alcohol or drug abuse patient.[facility] CenterIn the event this information is protected by the Federal Confidentiality of Alcohol and Drug Abuse Patient Records regulations: The Federal rules restrict any use of the information to criminally investigate or prosecute any alcohol or drug abuse patient.[facility] CenterIn the event this information is protected by the Federal Confidentiality of Alcohol and Drug Abuse Patient Records regulations: The Federal rules restrict any use of the information to criminally investigate or prosecute any alcohol or drug abuse patient.[facility] CenterIn the event this information is protected by the Federal Confidentiality of Alcohol and Drug Abuse Patient Records regulations: The Federal rules restrict any use of the information to criminally investigate or prosecute any alcohol or drug abuse patient.[facility] CenterIn the event this information is protected by the Federal Confidentiality of Alcohol and Drug Abuse Patient Records regulations: The Federal rules restrict any use of the information to criminally investigate or prosecute any alcohol or drug abuse patient.[facility] CenterIn the event this information is protected by the Federal Confidentiality of Alcohol and Drug Abuse Patient Records regulations: The Federal rules restrict any use of the information to criminally investigate or prosecute any alcohol or drug abuse patient.[facility] CenterIn the event this information is protected by the Federal Confidentiality of Alcohol and Drug Abuse Patient Records regulations: The Federal rules restrict any use of the information to criminally investigate or prosecute any alcohol or drug abuse patient.[facility] CenterIn the event this information is protected by the Federal Confidentiality of Alcohol and Drug Abuse Patient Records regulations: The Federal rules restrict any use of the information to criminally investigate or prosecute any alcohol or drug abuse patient.[facility] CenterIn the event this information is protected by the Federal Confidentiality of Alcohol and Drug Abuse Patient Records regulations: The Federal rules restrict any use of the information to criminally investigate or prosecute any alcohol or drug abuse patient.[facility] CenterIn the event this information is protected by the Federal Confidentiality of Alcohol and Drug Abuse Patient Records regulations: The Federal rules restrict any use of the information to criminally investigate or prosecute any alcohol or drug abuse patient.[facility] CenterIn the event this information is protected by the Federal Confidentiality of Alcohol and Drug Abuse Patient Records regulations: The Federal rules restrict any use of the information to criminally investigate or prosecute any alcohol or drug abuse patient.[facility] CenterIn the event this information is protected by the Federal Confidentiality of Alcohol and Drug Abuse Patient Records regulations: The Federal rules restrict any use of the information to criminally investigate or prosecute any alcohol or drug abuse patient.[facility] CenterIn the event this information is protected by the Federal Confidentiality of Alcohol and Drug Abuse Patient Records regulations: The Federal rules restrict any use of the information to criminally investigate or prosecute any alcohol or drug abuse patient.[facility] CenterIn the event this information is protected by the Federal Confidentiality of Alcohol and Drug Abuse Patient Records regulations: The Federal rules restrict any use of the information to criminally investigate or prosecute any alcohol or drug abuse patient.[facility] CenterIn the event this information is protected by the Federal Confidentiality of Alcohol and Drug Abuse Patient Records regulations: The Federal rules restrict any use of the information to criminally investigate or prosecute any alcohol or drug abuse patient.[facility] CenterIn the event this information is protected by the Federal Confidentiality of Alcohol and Drug Abuse Patient Records regulations: The Federal rules restrict any use of the information to criminally investigate or prosecute any alcohol or drug abuse patient.[facility] CenterIn the event this information is protected by the [facility] Confidentiality of Alcohol and Drug Abuse Patient Records regulations: The Federal rules restrict any use of the information to criminally investigate or prosecute any alcohol or drug abuse patient.[facility] CenterIn the event this information is protected by the Federal Confidentiality of Alcohol and Drug Abuse Patient Records regulations: The Federal rules restrict any use of the information to criminally investigate or prosecute any alcohol or drug abuse patient.[facility] Reason for Visit (unrecogniz ed section and content) Reason Comments Radiology CT Specialty Diagnoses / Procedures Referred By Contac t Referred To Contact CT IMAGING Diagnoses Recurrent UTI (urinary tract infection) Procedures CT FLANK WO IVCON CT ABD & PELVIS W/O CONTRAST Dilip Loving PA-C [address] [place] [address] Ct Imaging Referral ID Status Reason Start Date Expiration Date V isits Requested Visits Authorized [id number] Closed Auto-Generate d Referral 11/05/2021 12/20/2021 1 1 Reason Comments Results Reason Comments Chest Pain Reason Comments Results Reason Onset Date Comments Refill Request 10/12/2022 Reason Comments Cough Congestion, sob, fat igue, has asthma x 2 weeks Reason Comments Medication Request [facility] Al[facility]ol Reason Onset Date Comments Refill Request 05/06/2023 Reason Comments Cough Chest congestion, ST , loss of voice, DREW x1 week Reason Comments Physical Reason Comments Yearly Exam Reason Comments Appointment Reason Comments Refill Request Reason Comments New Patient New Pt: PCP consult for chest, palpitations, systolic clickPt reports fatigue, dizziness, SOB (Pt has asthma), hot/nauseous feeling, chest discomfort is sharp and radiated up her neck, left arm heaviness. Symptoms started after Pt got COVID shots in 2020. Specialty Diagnoses / Procedures Referred By Contac t Referred To Contact Cardiology Diagnoses Palpitations Atypical chest pain Systolic click Procedures CONSULT TO CARDIOLOGY OFFICE/OUTPATIENT NEW HIGH MDM 60 MINUTES Ila Canales MD [address] [facility] [place] [address] Referral ID Status Reason Start Date Expiration Date V isits Requested Visits Authorized [id number] Closed PCP Requested Referral 08/22/2023 08/21/2024 1 1 Reason Onset Date Comments Weight Management Weight Management 12/21/2023 Reason Comments Insurance Authorization Reason Comments Reminder Call Reason Comments PSG Check In Reason Comments Received Outside Medical Records [facility] ED 02/09 Reason Comments Establish Care Specialty Diagnoses / Procedures Referred By Antelmoac t Referred To Contact INTERNAL MEDICINE Diagnoses PHYSICAL PT IS IN NETWORK IN [facility] On Call Procedures PHYSICAL PT IS IN NETWORK IN [facility] Self [address] [place] [address] [address] [place] [address] Referral ID Status Reason Start Date Expiration Date Visits Requested Visits Authorized [id number] Pending Review OON/Self Pay Override 06/28/2024 10/06/2025 1 1 Reason Comments Referral Information Cardiology Reason Comments Insurance Authorization PA for albuterol inhaler Reason Onset Date Comments Refill Request 08/23/2024 Reason Comments Returning Patient's Call Reason Comments Can Tender - Other [facility] [employer] cy - updated instructions Reason Onset Date Comments Refill Request 09/23/2024 Wellbutrin. Adva ir Reason Comments Appointment 6 Month Follow up Reason Onset Date Comments Refill Request 01/24/2025 Albuterol inhale r Care Teams (unrecognized sec tion and content) Nutritionalist Relationship Specialty Start Date End Date Ila Canales MD [address] [place], [place] [id number] PCP - General Family Practice 08/27/14 Nutritionalist Relationship Specialty Start Date End Date Ila Canales MD [address] [place] [address] PCP - General Family Practice 08/27/14 Nutritionalist Relationship Specialty Start Date End Date Ila Canales MD [address] [place] [address] PCP - General Family Medicine 08/27/14 Nutritionalist Relationship Specialty Start Date End Date Ila Canales MD [address] [place] [address] PCP - General Family Medicine 08/27/14 Nutritionalist Relationship Specialty Start Date End Date Ila Canales MD [address] [place] [address] PCP - General Family Medicine 08/27/14 Nutritionalist Relationship Specialty Start Date End Date Ila Canales MD [address] [place] [address] PCP - General Family Medicine 08/27/14 Nutritionalist Relationship Specialty Start Date End Date Ila Canales MD [address] [place] [address] PCP - General Family Medicine 08/27/14 Nutritionalist Relationship Specialty Start Date End Date Ila Canales MD [address] [place] [address] PCP - General Family Medicine 08/27/14 Nutritionalist Relationship Specialty Start Date End Date Ila Canales MD [address] [place] [address] PCP - General Family Medicine 08/27/14 Nutritionalist Relationship Specialty Start Date End Date Ila Canales MD [address] [place] [address] PCP - General Family Medicine 08/27/14 Nutritionalist Relationship Specialty Start Date End Date Ila Canales MD [address] [place] [address] PCP - General Family Medicine 08/27/14 Nutritionalist Relationship Specialty Start Date End Date Ila Canales MD [address] [place] [address] PCP - General Family Medicine 08/27/14 Team Status: Active Member Role Status Dates Dr. Rj Canales MD Family Provider Active Dr. Rj Canales MD Primary Care Provider Active Team Status: Inactive Member Role Status Dates Dr. Rj Canales MD Primary Care Provider Active Dr. Anju Bermudez MD Referring Provider, Emergency Provider Active Nutritionalist Relationship Specialty Start Date End Date Ila Canales MD [address] [place] [address] PCP - General Family Medicine 08/27/14 Nutritionalist Relationship Specialty Start Date End Date Ila Canales MD [address] [place] [address] PCP - General Family Medicine 08/27/14 Nutritionalist Relationship Specialty Start Date End Date Ila Canales MD [address] [facility], [place] [address] PCP - General Family Medicine 08/27/14 Nutritionalist Relationship Specialty Start Date End Date Ila Canales MD [address] [facility], [place] [address] PCP - General Family Medicine 08/27/14 Nutritionalist Relationship Specialty Start Date End Date Ila Canales MD [address] [place] [address] PCP - General Family Medicine 08/27/14 Nutritionalist Relationship Specialty Start Date End Date Ila Canales MD [address] [place] [address] PCP - General Family Medicine 08/27/14 Nutritionalist Relationship Specialty Start Date End Date Ila Canales MD [address] [place] [address] PCP - General Family Medicine 08/27/14 Nutritionalist Relationship Specialty Start Date End Date Ila Canales MD [address] [place] [address] PCP - General Family Medicine 08/27/14 Nutritionalist Relationship Specialty Start Date End Date Ila Canales MD [address] [place] [address] PCP - General Family Medicine 08/27/14 Nutritionalist Relationship Specialty Start Date End Date Ila Canales MD [address] [place] [address] PCP - General Family Medicine 08/27/14 Nutritionalist Relationship Specialty Start Date End Date Ila Canales MD [address] [place] [address] PCP - General Family Medicine 08/27/14 Nutritionalist Relationship Specialty Start Date End Date Ila Canales MD [address] [place] [address] PCP - General Family Medicine 08/27/14 Nutritionalist Relationship Specialty Start Date End Date Ila Canales MD [address] [place] [address] PCP - General Family Medicine 08/27/14 Nutritionalist Relationship Specialty Start Date End Date Ila Canales MD [address] [place], [place] [id number] PCP - General Family Medicine 08/27/14 Nutritionalist Relationship Specialty Start Date End Date Benigno Laguerre DO [address] [place], [place] [id number] PCP - General Internal Medicine 07/02/24 Ginny Eaton APRN.HR PAYROLL COORDINATOR [address] [facility] [address] [place], [place] [address] Crate Repairer Internal Medicine 05/12/24 Trini Blackburn DO [address] [place], [place] [id number] PCP Resident 07/02/24 Nutritionalist Relationship Specialty Start Date End Date Benigno Laguerre DO [address] [place] [address] PCP - General Internal Medicine 07/02/24 Ginny Eaton APRN.HR PAYROLL COORDINATOR [address] [facility] [address] [place] [address] Crate Repairer Internal Medicine 05/12/24 Trini Blackburn DO [address] [place], [place] [id number] PCP Resident 07/02/24 Nutritionalist Relationship Specialty Start Date End Date Benigno Laguerre [address] [place], [place] [id number] PCP - General Internal Medicine 07/02/24 Ginny Eaton, LALA.HR PAYROLL COORDINATOR [address] [facility] [place] [address] Crate Repairer Internal Medicine 05/12/24 Trini Blackburn DO [address] [place], [place] [id number] PCP Resident 07/02/24 Nutritionalist Relationship Specialty Start Date End Date Carlotta BenigonDO [address] [place], [place] [id number] PCP - General Internal Medicine 07/02/24 Ginny Eaton, REGIONAL SALES LEADER.HR PAYROLL COORDINATOR [address] [facility] [address] [place], [place] [address] Crate Repairer Internal Medicine 05/12/24 Trini Blackburn DO [address] [place], [place] [phone] PCP Resident 07/02/24 Nutritionalist Relationship Specialty Start Date End Date Carlotta BenignoDO [address] [place], [place] [id number] PCP - General Internal Medicine 07/02/24 Ginny Eaton, LALA.HR PAYROLL COORDINATOR [address] [facility] [place] [address] Crate Repairer Internal Medicine 05/12/24 Trini Blackburn DO [address] [place] [address] [place], [place] [phone] PCP Resident 07/02/24 Nutritionalist Relationship Specialty Start Date End Date Benigno Laguerre [address] [facility] 5th [address] [place], [place] [phone] PCP - General Internal Medicine 07/02/24 Ginny Eaton APRN.CNP [address] [facility] [place] [address] Crate Repairer Internal Medicine 05/12/24 Trini Blackburn DO [address] [place], [place] [id number] PCP Resident 07/02/24 Team Status: Active Member Role/Relationship Status Dates Dr. Rj Canales MD Primary care physician Active Team Status: Inactive Member Role/Relationship Status Dates Dr. Derek Sanchez MD Emergency Departmen t Physician Active Start: March 13, 2025 End: March 13, 2025 Dr. Rj Canales MD Primary care physician Active Start: March 13, 2025 End: March 13, 2025 Goals (unrecognized section and content) Goals may be documented in a n alternate sectionGoals may be documented in an alternate section FOR RECORDS PERTAINING TO PATIENTS WHO ARE OR HAVE BEEN ENROLLED IN A CHEMICAL DEPENDENCY/SUBSTANCEABUSE PROGRAM, SOME INFORMATION MAY BE OMITTED. This clinical summary was aggregated from multiple sources. Caution should be exercised in using it in the provision of clinical care. This summary normalizes information from multiple sources, and as a consequence, information in this document may materially change the coding, format and clinical context of patient data. In addition, data may be omitted in some cases. CLINICAL DECISIONS SHOULD BE BASED ON THE PRIMARY CLINICAL RECORDS. [employer] provides no warranty or guarantee of the accuracy or completeness of information in this document.
[2025-03-27] MEDS: Lactated Ringers 1,000 ML 15 ML IV (07:24)
[2025-03-27 07:25] LABS: Internal QC Validated? YES +Cl - CLEAR BKGD; Pregnancy, Urine Negative Negative; Record Kit Lot#,Urine Preg 980607
--- NOTE | 2025-03-27 07:49 | PRE.ANES_ITS ---
ASA Classification* ASA Classification ASA Classification: 2 Assessment & Plan Anesthesia* Anesthesia Assessment Anesthesia Assessment: Discussed sedation and/or anesthesia options, risks, benefits, and alternatives with patient/parents/legal guardian/POA. Questions invited. The patient/parents/legal guardian/POA seems to understand and agrees to proceed with anesthesia plan. Reviewed the physical assessment, medical history, allergy history and patient home medications list prior to surgery/procedure/anesthetic and documented any changes. Performed airway and anesthesia risk assessments. Anesthesia Type Anesthesia Type: General History Source History Obtained from:: Patient and Chart Anesthesia Focused Assessment* Temperature: 98.5 F Pulse Rate: 89 Blood Pressure: 125/95 Respiratory Rate: 16 Pulse Ox: 100 Oxygen Delivery Method: Room Air Airway Assessment Mouth opens: >3 cm Mallampati Score: II Teeth Condition: Intact Neck Range of motion (ROM): Full ROM Labs Anesthesia Preop lab: CBC WBC, (4.4-11.0) 7.3 K/mm3 03/13/25, 10:00 RBC, (4.2-5.4) 4.92 M/mm3 03/13/25, 10:00 Hgb, (12.0-15.0) 14.4 g/dL 03/13/25, 10:00 Hct, (37-47) 42.2 % 03/13/25, 10:00 Plt Count, (150-450) 329 K/mm3 03/13/25, 10:00 CHEMISTRY Potassium, (3.3-5.1) 3.9 mmol/L 03/13/25, 10:00 Sodium, (133-145) 138 mmol/L 03/13/25, 10:00 BUN, (4-19) 9 mg/dL 03/13/25, 10:00 Creatinine, (0.70-1.20) 0.85 mg/dL 03/13/25, 10:00 Glucose, (70-99) 94 mg/dL 03/13/25, 10:00 COAG Urine Test Negative Negative Today, 07:15 Pre-Assessment Diagnosis/Proposed Procedure Planned Operative Procedure(s): CYSTOSCOPY, Anesthesia History Anesthesia History - senior oracle 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 When Was Last Pacemaker Check QUESTION #4 FULL TEXT: You/Your Family Experience fever (hyperthermia) with Anesthesia Last Oral Intake Last Oral intake: Last Oral Intake NPO since 20:00 03/27/25 07:21 Meds taken in AM with sips of Yes 03/27/25 07:21 water? Meds patient instructed to take am of surgery PONV PONV - senior oracle applications developer: PONV - senior oracle applications developer Female Yes 03/20/25 15:24 HX of Motion Sickness No 03/20/25 15:24 HX of N/V After Surgery No 03/20/25 15:24 Non-Smoker No 03/20/25 15:24 Duration of Surgery greater Yes 03/20/25 15:24 than 60 minutes Number of Risk Factors 2 03/20/25 15:24 PONV Score Moderate Risk 03/20/25 15:24 Height & Weight Height & Weight: Anesthesia: Height & Weight Height 5 ft 5 in 03/27/25 07:21 Weight: 79.1 kg 03/27/25 07:21 Body Mass Index (BMI) 29.0 03/27/25 07:21 Respiratory Assessment Respiratory Assessment - senior oracle applications developer: Respiratory Tract Infection Hx - senior oracle applications developer Hx Respiratory Tract Infection No 03/20/25 15:24 STOP Sleep Apnea STOP Sleep Apnea - senior oracle applications developer: STOP Sleep Apnea - senior oracle applications developer Hx Hypertension No 03/20/25 15:24 Hx Sleep Apnea No 03/20/25 15:24 CPAP BIPAP Do you snore loudly (louder No 03/20/25 15:24 than talking or can be heard Do you often feel tired/ No 03/20/25 15:24 fatigued/ sleepy during daytime? Has anyone observed you stop No 03/20/25 15:24 breathing during sleep? STOP Results Negative 03/20/25 15:24 QUESTION #5 FULL TEXT : Do you snore loudly (louder than talking or can be heard through closed doors)? Tobacco Use History Tobacco Use History - senior oracle applications developer: Tobacco Use History - senior oracle applications developer Tobacco Use Smoking Status Current every day smoker 03/20/25 15:24 Hx Tobacco Use Yes 03/20/25 15:24 Years Smoking Packs Smoked per Day Smoking Cessation Date was within the last 15 years Hx Smoking Cessation Date Hx Smoking Cessation Counseling Hematologic Medial History Hematologic Hx - senior oracle applications developer: Hematologic Medical Hx - senior analyst market intelligence Hx of Blood Transfusion No 03/20/25 15:24 Hx of Transfusion in last 3 No 03/20/25 15:24 Months Date of Last Transfusion (if within last 3 months) Ever experience any problems No 03/20/25 15:24 with transfusion(s)? Specify any problems Hx of Preganancy in last 3 No 03/20/25 15:24 Months Nurse Filling Out Transfusion [email or web address] 03/20/25 15:24 & Questions: Date: 03/20/25 03/20/25 15:24 Time: 15:03/20/25 15:24 Patient unable to answer at this time (ie. confused, unrespo /Reproduction History /Reproductive History - senior oracle applications developer: /Reproductive Hx- senior oracle applications developer Hx Now No 03/20/25 15:24 Gestational Age (in weeks): EDC: Hx Hx Para Hx Section SAB No 03/20/25 15:24 Active Medications Active Medications: Current Medications Generic Name Dose Route Start Last Admin Trade Name Freq PRN Reason Stop Dose Admin Ciprofloxacin 400 mg in 200 mls @ 200 mls/hr 03/27/25 08:30 Cipro IV 03/27/25 09:29 PREOP ONE Lactated Ringer's 1,000 mls @ 15 mls/hr 03/27/25 07:15 03/27/25 07:24 IV 15 mls/hr .Q48H NEY Administration PFSH Medical History Wears glasses Gastric reflux Cardiology follow-up encounter Chest pain Cardiac murmur Dyspnea Chest discomfort Fatigue Kidney stones Obesity (BMI 30.0-34.9) Depression Lightheadedness Palpitations Environmental allergies Asthma Migraine Anxiety Home Medications Medication Instructions Recorded Last Taken Type albuterol sulfate 90 mcg/actuation 1 - 2 puff inhalati on Q6H PRN PRN 06/17/16 03/27/25 History aerosol inhaler (Ventolin HFA) Sob &/Or Wheezing famotidine 20 mg tablet (Pepcid) 20 mg PO QHS 07/23/24 03/27/25 History bupropion HCl 150 mg tablet,12 hr 150 mg PO BID Unknown History sustained-release fluticasone 100 mcg-salmeterol 50 1 inh inhalation MECHE LY 10/07/24 03/27/25 History mcg/dose blistr powdr for inhalation (Advair Diskus) ibuprofen 600 mg tablet 600 mg PO Q6H PRN PRN pain # 20 10/07/24 Unknown Rx TABLETS cephalexin 500 mg capsule 500 mg PO Q6 7 days #28 CAPS ULES 03/13/25 Unknown Rx Allergy/AdvReac Type Severity Reaction Status Date / Time amoxicillin (From Augmentin) AdvReac Mild Abd Verified 03/27/25 07:16 cramps/diarrhea clavulanic acid (From AdvReac Mild Abd Verified 03/27/25 07:16 Augmentin) cramps/diarrhea Family History Father Asthma Obesity Grandfather COPD (chronic obstructive pulmonary disease) Obesity Son Asthma Mother Obesity Surgical History H/O uterine ablation Hx of oral surgery Social History household members: none Smoking Status: Current every day smoker tobacco type: cigarettes and e- cigarettes Electronic Cigarette Use: with nicotine alcohol intake: current alcohol intake frequency: holidays/special occasions only substance use type: does not use Review of Systems (Anesthesia) ROS Narrative System reviewed and no additional complaints, except as documented.
--- NOTE | 2025-03-27 08:06 | DCINST_ITS ---
Discharge Instructions Diet Discharge Diet: No restrictions Activity Discharge Activity: Return to Normal Activity Dressing / Incision Call your doctor if your incision/area has: - Call your doctor if you observe: Fever of 101 or Higher, Inability to urinate and Inability to have a bowel movement Follow Up Care Please Follow Up With: Edilma Ritter MD Test Results: Test results from this visit will be discussed in further detail at your follow- up appointment, if applicable. Discharge Plan Admission Attending Provider: Edilma Ritter Primary Care Provider: Rj Alejandro Instructions Print Language: [place] Citizen Discharge Orders/Prescriptions Prescriptions: New oxycodone-acetaminophen 5-325 mg tablet 1 tab PO Q8H PRN (Reason: pain) 3 Days Qty: 10 0RF ondansetron 4 mg tablet,disintegrating 4 mg PO Q8H PRN (Reason: nausea and vomiting) Qty: 10 0RF phenazopyridine 200 mg tablet 200 mg PO TID PRN (Reason: pain) Qty: 30 3RF sulfamethoxazole-trimethoprim 800-160 mg tablet 1 tab PO BID 3 Days Qty: 6 0RF Continued famotidine [Pepcid] 20 mg tablet 20 mg PO QHS bupropion HCl 150 mg tablet sustained-release 12 hr 150 mg PO BID albuterol sulfate [Ventolin HFA] 1 INHALER inhaler 1 - 2 puff inhalation Q6H PRN PRN (Reason: Sob &/Or Wheezing) fluticasone propion-salmeterol [Advair Diskus] 100-50 mcg/dose blister with device 1 inh inhalation DAILY ibuprofen 600 mg tablet 600 mg PO Q6H PRN PRN (Reason: pain) Qty: 20 0RF cephalexin 500 mg capsule 500 mg PO Q6 7 Days Qty: 28 0RF Referrals / Follow Up: Rj Alejandro MD [Primary Care Provider, Family Practice] Disposition Disposition (needs filled in before D/C Order can be placed): Home, Self Care
--- NOTE | 2025-03-27 08:06 | PCM.HP.BLA ---
History and Physical Date of Admission: 03/27/25 Date of Service: 03/18/25 MR#: [id number] Acct: [id number] Name: ABDOUL FAITH Rep #: [id number] : 1980 Provider: Dr. 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 Accompanied by: self Is patient in pain?: Yes (aching kidney stone pain ) Pain scale (1-10): 7 Allergies amoxicillin (From Augmentin) Adverse Reaction (Mild, Verified 03/13/25 09:24) Abd cramps/diarrhea clavulanic acid (From Augmentin) Adverse Reaction (Mild, Verified 03/13/25 09:24) Abd cramps/diarrhea Medications Medication Instructions Recorded Confirmed Type albuterol sulfate 90 mcg/actuation 1 - 2 puff inhalation Q6H PRN PRN 06/17/16 03/18/25 History aerosol inhaler (Ventolin HFA) Sob &/Or Wheezing famotidine 20 mg tablet (Pepcid) 20 mg PO QHS 07/23/24 03/18/25 History bupropion HCl 150 mg tablet,12 hr 150 mg PO BID 08/21/24 03/18/25 History sustained-release fluticasone 100 mcg-salmeterol 50 1 inh inhalation DAILY 10/07/24 03/18/25 History mcg/dose blistr powdr for inhalation (Advair Diskus) ibuprofen 600 mg tablet 600 mg PO Q6H PRN PRN pain #20 10/07/24 Rx TABLETS cephalexin 500 mg capsule 500 mg PO Q6 7 days #28 CAPSULES 03/13/25 03/18/25 Rx fluconazole 200 mg tablet 200 mg PO DAILY #1 TAB 03/13/25 03/18/25 Rx acetaminophen 325 mg tablet 325 mg PO ONCE PRN 03/18/25 03/18/25 History (Tylenol) Nurse's Note: 6mm kidney stone plus infection dx at the ER. On cephlexin 500mg every 6 hrs. Blader scan PVR 30cc PFSH Medical History Cardiac murmur Dyspnea Chest discomfort Fatigue Kidney stones Obesity (BMI 30.0-34.9) Depression Lightheadedness Palpitations Environmental allergies Asthma Migraine Anxiety Surgical History H/O uterine ablation Hx of oral surgery Family History Father Asthma Obesity Grandfather COPD (chronic obstructive pulmonary disease) Obesity Son Asthma Mother Obesity Social History household members: none Smoking Status: Current every day smoker tobacco type: cigarettes and e-cigarettes Electronic Cigarette Use: with nicotine alcohol intake: current alcohol intake frequency: holidays/special occasions only substance use type: does not use HPI HPI Urology Chief Complaint: ER follow up for 6mm kidney stone Details: ABDOUL FAITH, is a 44 F. She is here for evaluation and management of ureteral stone. She is voiding about 5-7 times during the day, 0 times at night. There is no urge incontinence where she cannot make it to the bathroom. There is stress incontinence with cough, laugh, sneeze, lifting, etc. She is using one liner pad in 24 hours. She has had 2-3 urinary tract infections in the last year. She also has frequent bacterial vaginitis. She usually uses metronidazole. She has not had visible blood in her urine. She is sexually active. There is sometimes pain with intercourse. There is no sensation of vaginal bulging. She has the following issues with chronic bowel function: none. She has a history of smoking. She vapes now. There is no history of blood clots or easy bleeding. There is not a family history of female cancer. Results POC Urinalysis w/Micro Office Urine Color Last Edit by Jeannie Suggs on 03/18/25 08:34 Office Urine Clarity Last Edit by Jeannie Suggs on 03/18/25 08:34 Office Urine Glucose Negative Last Edit by Jeannie Suggs on 03/18/25 08:34 Office Urine Ketones Negative Last Edit by Jeannie Suggs on 03/18/25 08:34 Office Urine Bilirubin Negative Last Edit by Jeannie Suggs on 03/18/25 08:34 Office Urine Urobilinogen 0.2 mg/dL Last Edit by Jeannie Suggs on 03/18/25 08:34 Off Ur Spec [place] 1.015 Last Edit by Jeannie Suggs on 03/18/25 08:34 Office Urine pH 6 Last Edit by Jeannie Suggs on 03/18/25 08:34 Office Urine Protein Trace Last Edit by Jeannie Suggs on 03/18/25 08:34 Office Urine Blood Moderate Last Edit by Jeannie Suggs on 03/18/25 08:34 Office Urine Blood Hemolyzed Negative Last Edit by Jeannie Suggs on 03/18/25 08:34 Office Urine Nitrate Negative Last Edit by Jeannie Suggs on 03/18/25 08:34 Off Ur Leukocytes Positive Last Edit by Jeannie Suggs on 03/18/25 08:34 Off Ur WBC Microscopic Last Edit by Jeannie Suggs on 03/18/25 08:34 Off Ur RBC Microscopic Last Edit by Jeannie Suggs on 03/18/25 08:34 Off Ur Bacteria Microscopic Last Edit by Jeannie Suggs on 03/18/25 08:34 leuks 70 Coding Level of Care Code Off vis,new,level 4 Diagnoses Ureteral stone N20.1 Kidney stone on left side N20.0 UTI (urinary tract infection) N39.0 Stress incontinence N39.3 Assessment and Plan Assessment and Plan (1) Ureteral stone: Status: Acute (2) Kidney stone on left side: Status: Acute (3) UTI (urinary tract infection): Status: Acute (4) Stress incontinence: Status: Acute Orders: Orders POC UA Automated w/Microscopy Today N20.0 - Calculus of kidney Plan schedule for cystoscopy with bilateral ureteroscopy, laser lithotripsy, stone basket extraction The procedure, recovery and expectations were explained. The risks, benefits and alternatives were discussed, including but not limited to, the risks of anesthesia, bleeding, infection, injury, pain and the need for further intervention. We have discussed the risk of exposure to and/or potential harm posed by the COVID-19 virus with having a surgery/procedure at this time. A joint decision was made at this time to proceed with the scheduled surgery/procedure as indicated on the consent form. plan for 24hr UA stone protocol start infection prevention with vitamin C, D-mannose/cranberry and probiotics will discuss management for stress incontinence after above are managed she was offered Rx for pain control and declined as they make her sick to her stomach, will take ibuprofen 03/18/251915 <Electronically signed by Edilma Ritter MD> Date Edilma Ritter MD
[2025-03-27] MEDS: Midazolam 2 MG/2 ML Syringe IV (08:22)
[2025-03-27] MEDS: Lactated Ringers 500 ML IV (08:23)
[2025-03-27] MEDS: Lidocaine 1% (5 ml sdv) 5 ML Vial 10 ML IV (08:25)
--- NOTE | 2025-03-27 08:30 | CALC_PTH ---
PATIENT: ABDOUL FAITH LOC: [facility] [place] U#:[id number] AGE/SX: 44/F ROOM: RE03/27/[address]: Dr. Edilma Ritter MD : 1980 BED: DIS: 03/27/2025 SPEC #: [id number] RECD: 03/27/25 09:58 STATUS: JAYSHREE REJackeline #: [id number] REGI: 03/27/25 08:[address]: Edilma Ritter DEPT: SURGICAL PATHOLOGY RECD BY: Spencer Goodman ENTERED: 03/27/25 11:07 SP TYPE: Calculi OTHR DR: Dr. Rj Alejandro MD Tissues: A - CALCULI Procedures: Surgery Specimen Level I HEADER OPERATION: Cysto, bilateral uteroscopy, laser litho, stone basket PRE-OP DIAGNOSIS: Ureteral stone, kidney stone on left side, urinary tract infection, stress incontinence TISSUE SUBMITTED: A- Ureter stone GROSS DIAGNOSIS A. Ureter, "stone", removal: * Urolithiasis (gross examination only). * Sent for chemical analysis (a separate report will follow). COMMENT The calculus is submitted in its entirety for chemical stone analysis. The results from this study will be reported separately. GROSS DESCRIPTION A. Received fresh labeled the patient's name and date of . Designated as "ureter stone" are 2 mcclellan-yellow calculi, 0.3 cm and 0.4 cm. No sections are submitted. The specimen is for gross examination only. The specimen is sent for stone analysis. AK 03/27/2025 CPT:32724
[2025-03-27] MEDS: fentaNYL 100 MCG/2 ML Ampul IV (08:38)
[2025-03-27] MEDS: Ketorolac 30 MG/ML Syringe 15 MG IV (08:57)
--- NOTE | 2025-03-27 09:11 | PCM.POST.ANE ---
Anesthesia: Postop Eval I Current Vital Signs Temperature: 97.7 F Pulse Rate: 74 Blood Pressure: 148/102 Respiratory Rate: 16 Pulse Ox: 100 Oxygen Delivery Method: Room Air Assessment Airway patent: Yes Spontaneous unlabored respirations: Yes Mental status: Asleep nausea: No Vomiting: No Anesthesia Complication: No Fluid Hydration Crystalloid volume administer (ml): 500 Total IV fluid infused: 500 Progress Note Anesthesia document: Postop Eval 1 completed: Yes
--- NOTE | 2025-03-27 09:14 | OP.PCM_ITS ---
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: No Type of Anesthesia: General RN Documented Start/Stop Times: Operation Date: 03/27/25 08:30 Case Time Into Pre-Op 03/27/25 07:00 Out of Pre-Op 03/27/25 08:14 Anesthesia Start 03/27/25 08:22 Into Room 03/27/25 08:22 Procedure Start 03/27/25 08:32 Procedure End 03/27/25 08:58 Anesthesia End 03/27/25 09:04 Out of Room 03/27/25 09:04 Into Recovery 03/27/25 09:06 Procedure Start Time: 08:32 Procedure Stop Time: 08:58 Select all DRAINS/GRAFTS/IMPLANTS that apply: Drains Drain details: 4.5 Sammarinese by 26 cm JJ stent Estimated Blood Loss: <5cc Specimen collected: Yes Description of specimen(s) removed: Left ureteral stone fragments Description of surgery: The patient is a 44-year-old female came to the office after being seen in the emergency room and diagnosed with a left ureteral calculus. She now presents for surgical intervention. A right renal stone was also seen on imaging and the decision was made to attempt removal of this stone as well. Informed consent was obtained. The patient was taken to the operating room and placed on the operating room table. Anesthesia monitored the head, neck, airway, IV access and vital signs throughout the case. Once anesthesia was appropriately administered, she was placed into dorsolithotomy position was prepped and draped in usual sterile fashion. The cystoscope was inserted through the urethra under direct visualization into the urinary bladder. The bladder mucosa was fairly visualized in its entirety finding only erythema and edema of the tissue surrounding the left ureteral orifice. There was an attempt made at passage of a 0.035 Glidewire and it would not pass by the ureteral calculus which was easily palpable in the distal ureter. The semirigid ureteroscope was then utilized to intubate the left distal ureter and placed a 0.035 Glidewire which was then seen in the renal pelvis on fluoroscopy. The ureteroscope was then placed alongside the wire and access was once again obtained to the stone. It was broken into several small pieces using the thulium 200 µm laser. These pieces were basket retrieved and sent for analysis. The remainder of the ureter was clean and no other stones were seen on her CT scan in the left kidney. There is no evidence of injury to the left ureter. The indwelling Glidewire was utilized for placement of a 4.5 Sammarinese by 26 cm JJ stent. There was good positioning seen on fluoroscopy and in the urinary bladder. There was an area consistent with a possible second ureteral orifice 1 cm medial to the orifice where the stone was identified. A retrograde pyelogram using an 8 Sammarinese cone- tip catheter was done into this area revealing no evidence of ureteral duplication. The 0.035 Glidewire was then passed easily into the right ureteral orifice and advanced into the renal pelvis. A flexible ureteroscope was placed over the wire and access to the renal pelvis was obtained. There were multiple complex calyces identified. There were no stones seen. Every calyx was visualized. At this time the ureteroscope was used to ensure there was no injury to the ureter and it was removed. The patient's bladder was then emptied and the cystoscope was removed. She was awakened and taken to the recovery room in good condition. There were no complications during the procedure. Surgical Findings: No right stone identified, left distal ureteral calculus lasered and removed without injury Complications Complications: No Admit VTE Documentation VTE Present on Admission: Yes VTE Mechan Device Prophylaxis: SCD's VTE Pharm Prophylaxis ordered?: No Reason prophylaxis not ordered: Treatment Not Indicated
--- NOTE | 2025-03-27 14:29 | POSTOPAN2_ITS ---
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 [email or web address] nausea No 03/27/25 09:12 LEAD EMBEDDED SOFTWARE [email or web address] Vomiting No 03/27/25 09:12 LEAD EMBEDDED SOFTWARE [email or web address] Anesthesia Postop Eval I: Fluid Summary Crystalloid volume administer 500 03/27/25 09:12 LEAD EMBEDDED SOFTWARE [email or web address] (ml) Colloids volume administered ( ml) Blood Product volume administered (ml) Total IV fluid infused 500 03/27/25 09:12 LEAD EMBEDDED SOFTWARE [email or web address] Anesthesia Postop Eval I: Summary Notes Anesthesia Complication No 03/27/25 09:12 LEAD EMBEDDED SOFTWARE [email or web address] Anesthesia Complication Comment: Post-operative progress note Anesthesia: Postop Eval II Evaluation Mental status: Awake and Calm Pain Level: 1 nausea: No Vomiting: No Complications Anesthesia Complication: No
--- NOTE | 2025-03-27 14:29 | PCM.POSTANE2 ---
Anesthesia Postop Eval I Sum Postop Eval Completion status Anesthesia document: Postop Eval 1 completed: Yes Anesthesia Postop Eval I Summary Anesthesia Postop Eval I Summary: Anesthesia Postop Eval I: Assessment Summary Airway patent Yes 03/27/25 09:12 [email or web address] Spontaneous unlabored Yes 03/27/25 09:12 [email or web address] respirations Mental status Asleep 03/27/25 09:12 [email or web address] nausea No 03/27/25 09:12 [email or web address] Vomiting No 03/27/25 09:12 [email or web address] Anesthesia Postop Eval I: Fluid Summary Crystalloid volume administer 500 03/27/25 09:12 [email or web address] (ml) Colloids volume administered ( ml) Blood Product volume administered (ml) Total IV fluid infused 500 03/27/25 09:12 [email or web address] Anesthesia Postop Eval I: Summary Notes Anesthesia Complication No 03/27/25 09:12 [email or web address] Anesthesia Complication Comment: Post-operative progress note Anesthesia: Postop Eval II Evaluation Mental status: Awake and Calm Pain Level: 1 nausea: No Vomiting: No Complications Anesthesia Complication: No
[2025-04-08 08:08] LABS: Ca Oxalate, Dihydrate 70 % (.); Ca Oxalate, Monohydrate 25 % (.); Source Ureter (.)
== END 2025-03-27 10:32 | disposition home or self-care (01) ==
LOC: SDC 06:57 → AC 06:58
PROVIDERS: Anesthesiology; PCP Family Medicine; Referring Provider Urology; Visit Provider Urology
PROC: 0TJ98ZZ Inspection of Ureter, Via Natural or Artificial Opening Endoscopic (ICD-10-PCS; CPT 52352; principal; 2025-03-27 08:15)
DX: N20.2 Calculus of kidney with calculus of ureter (principal); F17.210 Nicotine dependence, cigarettes, uncomplicated; N39.3 Stress incontinence (female) (male); J45.909 Unspecified asthma, uncomplicated; F17.290 Nicotine dependence, other tobacco product, uncomplicated; Z87.440 Personal history of urinary (tract) infections; K21.9 Gastro-esophageal reflux disease without esophagitis; Z79.899 Other long term (current) drug therapy
CPT/HCPCS: 52356; 00873; 76000; 81025; 82360; 88300; 93005; C1769; C2617; J0744; J2405

== ENCOUNTER 2025-03-31 15:18 | Observation (INO) | payer OTHER, SELFPAY ==
[2025-03-31 15:19] VITALS: BP 141/108; PULSE 107; RESP 16; TEMP 37.2; O2SAT 100; BMI 29.6
[2025-03-31 15:21] VITALS: BP 141/108; PULSE 107; RESP 16; TEMP 37.2; O2SAT 100
[2025-03-31 16:30] LABS: Internal QC Validated? YES +Cl - CLEAR BKGD; Pregnancy, Serum, hCG Quali. NEGATIVE Negative; Record Kit Lot#, Serum Preg. 980607
--- NOTE | 2025-03-31 16:35 | CT_ITS ---
PROCEDURE: CT ABDOMEN/PELVIS WITHOUT CONT 03/31/2025 REASON FOR EXAM: STENT REMOVAL LT SIDE KIDENY TODAY, INCREASED PAIN TECHNIQUE: Procedure Code: CTABDPEL Modality: CT Procedure: ABDOMEN/PELVIS WITHOUT CONT Noncontrast technique limits evaluation of the abdominal and pelvic viscera. Coronal and Sagittal reconstruction series were provided. One or more dose reduction techniques were used (e.g., Automated exposure control, adjustment of the mA and/or kV according to patient size, use of iterative reconstruction technique). RADIATION DOSE SUMMARY: CTDlvol: 8.44 mGy DLP: 442.92 mGycm COMPARISON: 03/13/2025 FINDINGS: Lung bases: Clear. Liver: Unremarkable. Gallbladder: Unremarkable. Spleen: Unremarkable. Pancreas: Unremarkable. Adrenals: Unremarkable. Kidneys/Bladder: Persistent mild left hydroureteronephrosis, similar to prior exam. No obstructing stone is seen. Unchanged small subcentimeter nonobstructive stone in the lower pole of the right kidney. Reproductive Organs: Grossly unremarkable uterus and adnexae. Bilateral tubal occlusion devices. Bowel: No evidence of obstruction or active inflammatory process. Normal appendix. Lymph nodes: No enlarged abdominopelvic lymph nodes. Vasculature: Normal caliber abdominal aorta and IVC. Peritoneum / Retroperitoneum: No ascites or free air. Bones: Mild degenerative changes of the spine primarily at the lumbosacral junction. CT/Abdomen/Pelvis without Cont IMPRESSION: Persistent mild left hydroureteronephrosis. No obstructing stone. Unchanged small subcentimeter nonobstructive stone in the right kidney. Reading Location: [id number]
--- NOTE | 2025-03-31 16:38 | EDS_ITS ---
HPI HPI - Female History of Present Illness Chief Complaint: Flank Pain Narrative Narrative: Patient is a 44-year-old female presenting to the emergency department for left- sided flank pain that worsened today after stent removal by Dr. Ritter. Patient states that she has had multiple kidney stones in the past but this is the first time that required intervention. Patient states that the stent was removed today and shortly after she developed worsening flank pain. States over the weekend she was having flank pain with the stent in place but it has significantly worsened. She denies any fever or chills. Endorses nausea with no vomiting. She endorses dysuria and hematuria. [facility] Medical History Wears glasses Gastric reflux Cardiology follow-up encounter Chest pain Cardiac murmur Dyspnea Chest discomfort Fatigue Kidney stones Obesity (BMI 30.0-34.9) Depression Lightheadedness Palpitations Environmental allergies Asthma Migraine Anxiety Home Medications Medication Instructions Recorded Last Taken Type albuterol sulfate 90 mcg/actuation 1 - 2 puff inhalati on Q6H PRN PRN 06/17/16 03/31/25 History aerosol inhaler (Ventolin HFA) Sob &/Or Wheezing ondansetron 4 mg disintegrating 4 mg PO Q8H PRN nausea and 03/27/25 03/31/25 Rx tablet vomiting #10 tabs oxycodone-acetaminophen 5 mg-325 1 tab PO Q8H PRN pain 3 days #10 03/27/25 03/31/25 Rx mg tablet tabs phenazopyridine 200 mg tablet 200 mg PO TID PRN pain # 30 tabs 03/27/25 03/31/25 Rx sulfamethoxazole 800 1 tab PO BID INF 3 days #6 T ABLETS 03/27/25 03/30/25 Rx mg-trimethoprim 160 mg tablet acetaminophen 500 mg capsule 1,000 mg PO Q6H PRN pain 03/31/25 03/30/25 History ciprofloxacin HCl 500 mg tablet 500 mg PO BID INF. 3 d ays #6 tabs 03/31/25 03/31/25 Rx ibuprofen 200 mg tablet (Advil) 400 mg PO Q4H PRN pain 03/31/25 03/30/25 History oxycodone-acetaminophen 5 mg-325 1 tab PO Q8H PRN pain 3 days #10 03/31/25 Unknown Rx mg tablet (Percocet) tabs Allergy/AdvReac Type Severity Reaction Status Date / Time clavulanic acid (From AdvReac Mild Abd Verified 03/31/25 15:19 Augmentin) cramps/diarrhea Family History Father Asthma Obesity Grandfather COPD (chronic obstructive pulmonary disease) Obesity Son Asthma Mother Obesity Surgical History H/O uterine ablation Hx of oral surgery Social History household members: none Smoking Status: Current every day smoker tobacco type: e-cigarettes Electronic Cigarette Use: with nicotine alcohol intake: current alcohol intake frequency: holidays/special occasions only substance use type: does not use ROS ROS ED ROS Narrative See HPI EXAM Physical Exam Narrative Exam Narrative: Vital signs: Reviewed General: Alert and oriented x 3. Acute distress due to pain HEENT: Head is normocephalic and atraumatic, sinuses nontender, pupils equal round and reactive. Nares are patent. Oropharynx and throat exams normal. Neck: Supple without lymphadenopathy nontender Cardiovascular: Regular rate and rhythm, no murmurs. No rubs or gallops. Normal S1 and S2 Respiratory: Clear to auscultation bilaterally. No wheezes, rales, rhonchi Abdominal: Soft and tender to palpation in the left lower quadrant. Normal bowel sounds. No guarding or rebound. Left CVA tenderness to palpation. Extremities: No tenderness. No bruising. Normal range of motion. Normal sensation. Skin: No rash or redness. The rest of the physical exam is unremarkable Const Vital Signs: 03/31/25 15:19 03/31/25 15:21 03/31/25 17:19 Temperature 98.9 F 98.9 F Temperature Source Oral Oral Pulse Rate 107 H 107 H 72 Respiratory Rate 16 16 16 Blood Pressure 141/108 H 141/108 H 138/84 H Blood Pressure Mean 119 119 102 Pulse Ox 100 100 99 Oxygen Delivery Method Room Air Room Air Room Air 03/31/25 19:00 03/31/25 19:26 Temperature 98.9 F Temperature Source Pulse Rate 67 67 Respiratory Rate 16 Blood Pressure 113/84 H 113/84 H Blood Pressure Mean 93 93 Pulse Ox 99 99 Oxygen Delivery Method Room Air MDM MDM MDM Narrative Medical decision making narrative: Patient is a 44-year-old female presented emergency department for left-sided flank and abdominal pain that worsened after stent removal today. Patient was seen and examined. Vitals are stable. Patient appears uncomfortable due to pain. Patient given morphine and Zofran for symptomatic control. Fluid bolus started. CBC with no leukocytosis and normal hemoglobin. CMP with no significant abnormalities. BUN very mildly elevated at 20 otherwise normal kidney functioning. Urine negative. Urinalysis with evidence of infection. CT of the abdomen and pelvis shows persistent mild left hydroureteronephrosis. No obstructing stone. Unchanged small subcentimeter nonobstructive stone in the right kidney. Patient was reevaluated. Pain is much improved however she is still in pain and has concern that if she goes home her pain will not be controlled given she tried the oxycodone prior to coming today. She would like to be admitted for further pain management control. I did speak with Dr. Ritter who accepted the patient for admission for further pain management. Ciprofloxacin will be started for coverage of her UTI. Clinical impression Flank pain UTI History & Record Review Discussion w/independent historian: Patient Lab Data Attestation: I reviewed the patient's lab results. Labs: Laboratory Results - last 24 hr 03/31/25 03/31/25 16:05 17:32 WBC 10.6 RBC 4.51 Hgb 12.9 Hct 39.2 MCV 86.9 MCH 28.6 MCHC 32.9 RDW Std Deviation 38.1 RDW Coeff of Wilfredo 11.9 Plt Count 304 MPV 9.4 Immature Gran % (Auto) 0.400 Neut % (Auto) 68.2 Lymph % (Auto) 16.6 L Mobile % (Auto) 7.1 Eos % (Auto) 7.2 H Baso % (Auto) 0.5 Absolute Neuts (auto) 7.3 Absolute Lymphs (auto) 1.77 Nucleated RBC % 0 Sodium 138 Potassium 4.5 Chloride 105 Carbon Dioxide 21.7 Anion Gap 12 BUN 20 H Creatinine 1.02 Estim Creat Clear Calc 73.90 Est GFR (MDRD) Non-Af 70 BUN/Creatinine Ratio 19.5 Glucose 103 H Calcium 9.2 Total Bilirubin 0.28 AST 17 ALT 9 Alkaline Phosphatase 57 Total Protein 6.9 Albumin 4.2 Globulin 2.7 Albumin/Globulin Ratio 1.5 Serum , Qual NEGATIVE Urine Color Yellow Urine Clarity Cloudy Urine pH 6.0 Ur Specific [place] 1.015 Urine Protein 100 H Urine Glucose (UA) Normal Urine Ketones Negative Urine Occult Blood 250 H Urine Nitrite Positive H Urine Bilirubin 3 H Urine Urobilinogen 4 H Ur Leukocyte Esterase 500 H Urine RBC 50-100 SEEN Urine WBC 50-100 SEEN Ur Squamous Epith Cells 5-10 SEEN Urine Bacteria 2+ Urine Mucus 0 SEEN Radiography Diagnostic Testing: Clinical Impression(s) from Imaging Studies Abdomen/Pelvis CT 03/31/25 16:35 IMPRESSION: Persistent mild left hydroureteronephrosis. No obstructing stone. Unchanged small subcentimeter nonobstructive stone in the right kidney. Reading Location: [id number] Discharge Plan Triage Chief Complaint: Flank Pain ED Provider: Jeannie Lepe Dx/Rx/DC Orders Clinical Impression: Flank pain, UTI (urinary tract infection) Primary Care Provider: Rj Alejandro Disposition Disposition: Home, Self Care Discharge Date/Time: 03/31/25 21:08
[2025-03-31 16:44] LABS: Hematocrit 39.2 % (37-47); Hemoglobin 12.9 g/dL (12.0-15.0); Immature Granulocytes Count 0.040 X10^3/uL (0.0-0.0); Mean Corp Hgb Conc 32.9 g/dL (32-36); Mean Corpuscular Volume 86.9 fL (81-99); Mean Platelet Vol. 9.4 fl (6.2-12.0); NRBC Flagged by Analyzer 0 % (0-5); Platelet Count 304 K/mm3 (150-450); RBC Distribution Width CV 11.9 % (11.6-14.6); RBC Distribution Width SD 38.1 fl (35.1-43.9); Red Blood Count 4.51 M/mm3 (4.2-5.4); White Blood Count 10.6 K/mm3 (4.4-11.0)
[2025-03-31] MEDS: 0.9% Normal Saline (1000mL) 1,000 ML 1000 ML IV (16:53)
[2025-03-31 17:16] LABS: AST(SGOT) 17 U/L (<=31); Alanine Aminotransfer ALT/SGPT 9 U/L (<=34); Albumin, Serum 4.2 g/dL (3.5-5.0); Alkaline Phosphatase 57 U/L (35-104); Anion Gap 12 (5-15); BUN 20 mg/dL (4-19); BUN/Creat Ratio 19.5 RATIO (10-20); Calcium,Total 9.2 mg/dL (7.6-11.0); Carbon Dioxide 21.7 mmol/L (21.0-32.0); Chloride 105 mmol/L (98-108); Estimated Creatinine Clearance 73.90 ml/min (50-250); Globulin 2.7 g/dL (2.2-4.2); Glucose 103 mg/dL (70-99); Potassium 4.5 mmol/L (3.3-5.1)
[2025-03-31 17:19] VITALS: BP 138/84; PULSE 72; RESP 16; O2SAT 99
[2025-03-31 17:38] LABS: Mucous, Urine 0 SEEN /hpf (<or=2+)
[2025-03-31 18:36] LABS: Color, Urine Yellow (Yellow); Glucose, Dipstick Normal (Normal); Ketone-Dipstick Negative (Negative); Leukocyte Esterase-Dipstick 500 /ul (Negative); Nitrite-Dipstick Positive (Negative); Occult Blood-Urine 250 /ul (Negative); Protein-Dipstick 100 mg/dl (Negative); Specific Gravity, Urine 1.015 (1.002-1.030)
[2025-03-31 18:41] LABS: Urine Bilirubin Dipstick 3 mg/dL (Negative)
[2025-03-31 19:00] VITALS: BP 113/84; PULSE 67; O2SAT 99
[2025-03-31 19:02] LABS: Red Blood Cells-Urine 50-100 SEEN /hpf (0-5); Squamous Epithelial Cells - UA 5-10 SEEN /hpf (5-10)
[2025-03-31 19:26] VITALS: BP 113/84; PULSE 67; RESP 16; TEMP 37.2; O2SAT 99
--- OUTSIDE RECORDS SUMMARY | 2025-03-31 19:34 | XMS RPT_ITS | CCD ---
Author Organization [facility] ion [facility] Care Team Providers Care Sales Marketing Manager Name Role Phone Ila Canales MD Primary Care Provider ILA CANALES Referring Unavailable ILA CANALES Primary Care Unavailable MD GAYLE GREGORY Attending Unavailable Ila Canales MD Primary Care Provider Angelito TRAY CHECKER.NET PROGRAMMER, Ginny Unavailable [phone] Trini Blackburn DO Unavailable Benigno Laguerre DO Primary Care Provider TRINI BLACKBURN Attending Unavailable SELF Referring Unavailable BENIGNO LAGUERRE Primary Care Unavailable Dr. Derek Sanchez MD Emergency Department Physici an Javon SUH, Dr. De La Rosa Primary Care Physician ILA CANALES Primary Care Unavailable INDY QUIGLEY Attending Unavailable Derek Sanchez Attending Unavailable Rj Canales Primary Care Unavailable Edilma Ritter Referring Unavailable Rj Canales Primary Care Unavailable Edilma Ritter Attending Unavailable [facility] Doctor, Out of Primary Care Unavailable Nigel Quezada Attending Unavailable [facility] Doctor, Out of Referring Unavailable Edilma Ritter Referring Unavailable Rj Canales Primary Care Unavailable Edilma Ritter Consulting Unavailable Edilma Ritter Attending Unavailable jR Canales Primary Care Unavailable Rj Canales Referring Unavailable Edilma Ritter Attending Unavailable [facility] Doctor, Out of Primary Care Unavailable Antelmo Maldonado Attending Unavailable [facility] Doctor, Out of Referring Unavailable Assessment, Health Risk Attending Unavaila ble Assessment, Health Risk Referring Unavaila ble [facility] Doctor, Out of Primary Care Unavailable Fernando Parra Attending Unavailable Allergies Allergy Classification Reported Allergen(s) Allergy Type Date of Onset Reaction(s) Facility Amoxicillin / Clavulanate (1 source) Amoxicillin / Clavulanate Drug Allergy 2 Diarrhea [facility] (20 sources) Amoxicillin / Clavulanate; Translations: [AMOXICILLIN-POT CLAVULANATE] Drug Allergy 2 Diarrhea [facility] (11 sources) environmental [Other] Propensity to adverse reactions 8 [facility] (20 sources) Seasonal allergy; Translations: [SEASONAL ALLERGIES] Allergy to substance 8 Intolerance [facility] (2 sources) Amoxicillin Drug Allergy 3 Abd cramps/diarrhe a [facility] (2 sources) Clavulanate Drug Allergy 3 Abd cramps/diarrhe a [facility] (1 source) Amoxicillin Drug Allergy 5 [facility] (1 source) Clavulanate Drug Allergy 5 [facility] Medications Current Medications Medication Drug Class(es) Dates Sig (Normalized) Sig (Original) [id number] 200 actuat albuterol 0.09 mg/actuat metered dose [...] Start: 06-24-2020 take 2 puff(s) by mo uth every four hours albuterol HFA (PROVENTIL HFA, [...] on above: inhale 2 puffs by mo ut and INTO THE LUNGS every 4 hours inhale 2 puffs by mo ut and INTO THE LUNGS every 6 hours [...] on above: Take 1 capsule by mo [facility] twice daily for 7 days. diazePAM 5 [...] Comment on above: [facility] needed. fluconazole 200 mg [...] instructed twice daily. 60 Each 11 07/25/2022 Active Start: 06-02-2022 End: 07-25-2022 take [...] TABLET PO EVERY 6 HOURS NEEDED 10 June 28, 2018 12:00am July 01, 2018 [...] 5 days. Take 1 capsule by mo [facility] two times a day for 5 days. esomeprazole 40 mg delayed release oral capsule (2 sources) Proton Pump Inhibitor Start: 12-21-19 End: 07-18-20 24 take 1 capsule by mouth once daily before breakfast esomeprazole (NEXIUM) 40 mg capsule Indications: Gastroesophageal reflux disease, unspecified whether esophagitis present Take 1 capsule by mouth daily before breakfast. 30 capsule 0 12/21/2023 12/21/2023 Discontinued (Other) JONG Dawson billion cell cap (5 sources) Start: 04-01-20 End: 07-25-19 23 take 1 capsule by mouth once daily JONG Dawson billion cell cap [...] on above: TAKE 1 CAPSULE BY MO [facility] EVERY DAY. TAKE AT LEAST 1 TO 2 HOURS BEFOR OR AFTER ANTIBIOTIC. KEEP REFRIGERATED lansoprazole 30 mg delayed release oral capsule (1 source) Proton Pump Inhibitor Start: 02-10-20 End: 07-23-19 take 1 capsule by mouth once daily Lansoprazole (Prevacid) 30 mg capsule,delayed release(DR/EC) Discontinued 30 mg PO DAILY 14 February 10, 2024 12:00am July 23, 2024 12:26pm loratadine 10 mg oral tablet (5 sources) Start: 07-07-19 End: 07-25-19 23 take 1 tablet by mouth once daily loratadine (CLARITIN) 10 mg tablet Indications: Seasonal allergic rhinitis due to pollen Take 1 tablet by mouth once daily. 90 tablet 1 07/07/2021 07/25/2022 Discontinued Comment on above: Take 1 tablet by [facility] once daily. metFORMIN hydrochloride 500 mg oral tablet (17 sources) Biguanide Start: 07-23-19 End: 08-22-19 25 take 1 tablet by [...] (20 sources) Nitrofuran Antibacterial Start: 022 End: nitrofurantoin (MACRODANTIN) 50 mg capsule Indications: Recurrent UTI (urinary tract infection) Take 1 capsule by mouth as needed (POST COITAL). 30 capsule 3 11/05/2021 07/02/2024 Discontinued Comment on above: Take 1 capsule by mo uth as needed (POST COITAL). omeprazole 40 mg [...] 10 mg oral tablet (3 sources) Start: End: take 5 tablets by mouth once daily, [...] on above: Take 2 tablets by mo [facility] once daily for 5 days. Take 5 tablets by mo [facility] once daily for 1 day, THEN 4 [...] Comment on above: Take 1 tablet by [facility] as directed. at onset of headache. May repeat after 2 hours. Do not exceed 20 mg per day. Problems Active Problems Problem Classification Problem Date Documented Da te Episodic/Chronic Abdominal pain (3 sources) Left flank pain; Translations: [Acute left flank pain] Onset: 03-13-2025 Episodic Adjustment disorders (1 source) Adjustment [...] 8 01-23-2018 Chronic Calculus of urinary tract (4 sources) Kidney stone; Translations: [Calculus of kidney] [...] disorders; Translations: [Depression, unspecified depression type] Onset: 5 Nutritional deficiencies (18 sources) Vitamin D deficiency; [...] Translations: [Allergic rhinitis due to pollen] Onset: 8 01-23-2018 Chronic Other upper respiratory disease (1 source) Hoarse; Translations: [Dysphonia] 05-20-2023 Episodic Other upper respiratory infections (1 source) Acute sinusitis; Translations: [Acute sinusitis, unspecified] 05-20-2023 Episodic Residual codes; unclassified (1 source) Daytime somnolence; Translations: [Other hypersomnia] 12-14-2023 Chronic Residual codes; unclassified (1 source) Other hypersomnia; Translations: [Daytime hypersomnolence] Onset: 4 Chronic Sprains and strains (1 source) Strain [...] Test Name Value Interpretation Reference Range Facility [facility] ABD[facility] ([id number]) 1980 F Date Time Provider Department 03/27/25 ILA CANALES During your visit today, we recorded the following information about you: Karlene Lanza LPN 03/27/2025 3:50 PM Signed Received ed from [facility]. Placed in provider's inbox for review. Route to [place] scanning Allergies As of Date: 03/27/2025 Noted Allergy Reaction AUGMENTIN (AMOXICILLIN-POT CLAVUL*07/01/2021 6 - Diarrhea SEASONAL ALLERGIES 11/13/2007 5 - Intolerance Date Reviewed: 03/12/2025 Reviewed by: Pao Ponce LPN - Fully Assessed Reason for Visit: Received Outside Medical Records [[id number]] Cmt: [facility] Prescriptions as of 03/27/2025 - albuterol HFA (PROVENTIL HFA) 90 mcg/actuation [...] as needed. Problem List As Of Date 03/27/2025 Noted Resolved Mild persistent asthma without complication [J4*01/23/2018 Seasonal allergic rhinitis due to pollen [J30.1]01/23/2018 Migraine with aura and without status migrainos*12/21/2023 Gastroesophageal reflux disease [K21.9] 12/21/2023 Vitamin D deficiency [E55.9] 12/21/2023 Class 1 obesity with body mass index (BMI) of 3*12/21/2023 Elevated LDL cholesterol level [E78.00] 12/21/2023 Encounter Status:Closed by KARLENE LANZA on 03/27/25 Normal [facility] Discharge Instructionon 03-06 Discharge Instruction [facility] Medical Records Department [address] [place] [address] Instructions for Home/Discharge Instructions 03/27/25 0806 MR#: [id number] Acct: [id number] Name: ABDOUL FAITH Rep #: [id number] : 1980 44 From: Edilma Ritter MD PCP: Dr. Rj Canales MD Status:REG [facility] Discharge Instructions Diet Discharge Diet: No restrictions Activity Discharge Activity: Return to Normal Activity Dressing / Incision Call your doctor if your incision/area has: - Call your doctor if you observe: Fever of 101 or Higher, Inability to urinate and Inability to have a bowel movement Follow Up Care Please Follow Up With: Edilma Ritter MD Test Results: Test results from this visit will be discussed in further detail at your follow-up appointment, if applicable. Discharge Plan Admission Attending Provider: Edilma Ritter Primary Care Provider: Rj Canales Instructions Print Language: Cymro Discharge Orders/Prescriptions Prescriptions: New oxycodone-acetaminoph en 5-325 mg tablet 1 tab PO Q8H PRN (Reason: pain) 3 Days Qty: 10 0RF ondansetron 4 mg tablet,disintegrating 4 mg PO Q8H PRN (Reason: nausea and vomiting) Qty: 10 0RF phenazopyridine 200 mg tablet 200 mg PO TID PRN (Reason: pain) Qty: 30 3RF sulfamethoxazole-trim ethoprim 800-160 mg tablet 1 tab PO BID 3 Days Qty: 6 0RF Continued famotidine [Pepcid] 20 mg tablet 20 mg PO QHS bupropion HCl 150 mg tablet sustained-release 12 hr 150 mg PO BID albuterol sulfate [Ventolin HFA] 1 INHALER inhaler 1 - 2 puff inhalation Q6H PRN PRN (Reason: Sob /Or Wheezing) fluticasone propion-salmeterol [Advair Diskus] 100-50 mcg/dose blister with device 1 inh inhalation DAILY ibuprofen 600 mg tablet 600 mg PO Q6H PRN PRN (Reason: pain) Qty: 20 0RF cephalexin 500 mg capsule 500 mg PO Q6 7 Days Qty: 28 0RF Referrals / Follow Up: Rj Canales MD [Primary Care Provider, Family Practice] Disposition Disposition (needs filled in before D/C Order can be placed): Home, Self Care 03/27/25810 Edilma Ritter MD CC: Dr. Rj Canales MD Signed [facility] MR/POSTOP.ANE 03-27-2025 MR/POSTOP.[facility] Medical Records Department [address] [place] [address] Anesthesia Postop Eval I 03/27/25910 MR#: [id number] Acct: [id number] Name: ABDOUL FAITH MONROE Rep #: [id number] : 1980 44 From: Torsten Greer CRNA PCP: Dr. Rj Canales MD Status:REG SDC Y Race: C Location: [place] [address] Anesthesia: Postop Eval I Current Vital Signs Temperature: 97.7 F Pulse Rate: 74 Blood Pressure: 148/102 Respiratory Rate: 16 Pulse Ox: 100 Oxygen Delivery Method: Room Air Assessment Airway patent: Yes Spontaneous unlabored respirations: Yes Mental status: Asleep nausea: No Vomiting: No Anesthesia Complication: No Fluid Hydration Crystalloid volume administer (ml): 500 Total IV fluid infused: 500 Progress Note Anesthesia document: Postop Eval 1 completed: Yes 03/27/25911 Date Torsten Greer CRNA Cosigner Signature: Date CC: Signed [facility] MR/EPAKWBIU6ks 03-27-2025 MR/POSTOPAN2 [facility] Medical Records Department [address] [place] [address] Anesthesia Postop Eval II 03/27/25 1429 MR#: [id number] Acct: [id number] Name: ABDOUL FAITH Rep #: [id number] : 1980 44 From: Zhao Jimenez MD PCP: Dr. 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 Vomiting No 03/27/25 09:12 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 Anesthesia Postop Eval I: Fluid Summary Crystalloid volume administer 500 03/27/25 09:12 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 (ml) Colloids volume administered ( ml) Blood Product volume administered (ml) Total IV fluid infused 500 03/27/25 09:12 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 Anesthesia Postop Eval I: Summary Notes Anesthesia Complication No 03/27/25 09:12 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 Rj Canales MD Status:[facility] Location: [place] [address] Operative Report (Standard) Operative Information Date of Procedure: 03/27/25 Pre-Operative Diagnosis: Left ureteral and right renal calculi Post-Operative Diagnosis: Same Surgery/Procedure Performed: Cystoscopy, left retrograde pyelogram, left ureteroscopy, thulium laser lithotripsy, stone basket extraction, left ureteral stent insertion, right ureteroscopy pelt dropper: No Type of Anesthesia: General RN Documented Start/Stop Times: Operation Date: 03/27/25 08:30 Case Time Into Pre-Op 03/27/25 07:00 Out of Pre-Op 03/27/25 08:14 Anesthesia Start 03/27/25 08:22 Into Room 03/27/25 08:22 Procedure Start 03/27/25 08:32 Procedure End 03/27/25 08:58 Anesthesia End 03/27/25 09:04 Out of Room 03/27/25 09:04 Into Recovery 03/27/25 09:06 Procedure Start Time: 08:32 Procedure Stop Time: 08:58 Select all DRAINS/GRAFTS/IMPLANT S that apply: Drains Drain details: 4.5 Ivorian by 26 cm JJ stent Estimated Blood Loss: <5cc Specimen collected: Yes Description of specimen(s) removed: Left ureteral stone fragments Description of surgery: The patient is a 44-year-old female came to the office after being seen in the emergency room and diagnosed with a left ureteral calculus. She now presents for surgical intervention. A right renal stone was also seen on imaging and the decision was made to attempt removal of this stone as well. Informed consent was obtained. The patient was taken to the operating room and placed on the operating room table. Anesthesia monitored the head, neck, airway, IV access and vital signs throughout the case. Once anesthesia was appropriately administered, she was placed into dorsolithotomy position was prepped and draped in usual sterile fashion. The cystoscope was inserted through the urethra under direct visualization into the urinary bladder. The bladder mucosa was fairly visualized in its entirety finding only erythema and edema of the tissue surrounding the left ureteral orifice. There was an attempt made at passage of a 0.035 Glidewire and it would not pass by the ureteral calculus which was easily palpable in the distal ureter. The semirigid ureteroscope was then utilized to intubate the left distal ureter and placed a 0.035 Glidewire which was then seen in the renal pelvis on fluoroscopy. The ureteroscope was then placed alongside the wire and access was once again obtained to the stone. It was broken into several small pieces using the thulium 200 ???m laser. These pieces were basket retrieved and sent for analysis. The remainder of the ureter was clean and no other stones were seen on her CT scan in the left kidney. There is no evidence of injury to the left ureter. The indwelling Glidewire was utilized for placement of a 4.5 Ivorian by 26 cm JJ stent. There was good positioning seen on fluoroscopy and in the urinary bladder. There was an area consistent with a possible second ureteral orifice 1 cm medial to the orifice where the stone was identified. A retrograde pyelogram using an 8 Ivorian cone-tip catheter was done into this area revealing no evidence of ureteral duplication. The 0.035 Glidewire was then passed easily into the right ureteral orifice and advanced into the renal pelvis. A flexible ureteroscope was placed over the wire and access to the renal pelvis was obtained. There were multiple complex calyces identified. There were no stones seen. Every calyx was visualized. At this time the ureteroscope was used to ensure there was no injury to the ureter and it was removed. The patient's bladder was then emptied and the cystoscope was removed. She was awakened and taken to the recovery room in good condition. There were no complications during the procedure. Surgical Findings: No right stone identified, left distal ureteral calculus lasered and removed without injury Complications Complications: No Admit VTE Documentation VTE Present on Admission: Yes VTE Mechan Device Prophylaxis: SCD's VTE Pharm Prophylaxis ordered?: No Reason prophylaxis not ordered: Treatment Not Indicated 03/27/25 3917 Cosigner Signature (if applicable): CC: Dr. Edilma Ritter MD; Dr. Rj Canales MD Signed [facility] ,Urineon 03-27-2025 Beta HCG ( test) Ql (U) Negative [facility] Comment on above: Result Comment: Very dilute urine specimens, as indicated by a low specific gravity, may not contain architectural representative levels of hCG. If is still suspected, a first morning urine specimen should be collected 48 hours later and tested. Performed By: #### L 700.6800, L500.2500, L100.0100 #### [facility] [address] [place], [address] 12 Lead EKGon 03-21-2025 12 Lead EKG [facility] Cardiovascular Services [address] [place] [address] 12 Lead EKG 03/21/25 0725 MR#: [id number] Acct: [id number] Name: ABDOUL FAITH Rep #: [id number] : 1980 44 From: Nigel Quezada MD Attending Dr: Dr. Edilma Ritter MD Status: PRE [facility] Ordering Dr: Zhao Jimenez MD Date: 03/21/25 Location: [facility] Sex: F C Admitted: Test Reason : PREOP Blood Pressure : */* mmHG Vent. Rate : 70 BPM Atrial Rate : 70 BPM P-R Int : 146 ms QRS Dur : 82 ms QT Int : 382 ms P-R-T Axes : 48 46 37 degrees QTcB Int : 412 ms Normal sinus rhythm Normal ECG Confirmed by CONCETTA SUH, NIGEL ([id number]), copy editor LAURENCE DUKES ([id number]) on 03/24/2025 6:58:00 AM Referred By: Edilma Ritter Confirmed By: NIGEL QUEZADA MD 03/24/25 0658 Date Nigel Quezada MD CC: Dr. Zhao Jimenez MD; Dr. Edilma Ritter MD; Dr. Rj Canales MD Signed [facility] MR/PAT.Conor 03-21-2025 MR/PAT.[facility] Medical Records Department [address] [place] [address] PAT - Anesthesia 03/21/25 1552 MR#: [id number] Acct: [id number] Name: ABDOUL FAITH Rep #: [id number] : 1980 44 From: Miguel Sahu MD PCP: Dr. Rj Canales MD Status:PRE [facility] Y Race: C [place]: [facility] Pre-Assessment Diagnosis/Proposed Procedure Planned Operative Procedure(s): CYSTOSCOPY, Anesthesia History Anesthesia History - food and beverage lead: Anesthesia History - food and beverage lead Hx Hospitalization No 03/20/25 15:24 Any Problems [...] take am of surgery PONV PONV - food and beverage lead: PONV - food and beverage lead Female Yes 03/20/25 15:24 HX of Motion [...] 03/18/25 08:30 Respiratory Assessment Respiratory Assessment - food and beverage lead: Respiratory Tract Infection Hx - food and beverage lead Hx Respiratory Tract Infection No 03/20/25 15:24 STOP Sleep Apnea STOP Sleep Apnea - food and beverage lead: STOP Sleep Apnea - food and beverage lead Hx Hypertension No 03/20/25 15:24 Hx Sleep [...] Tobacco Use History Tobacco Use History - food and beverage lead: Tobacco Use History - food and beverage lead Tobacco Use Smoking Status Current every day smoker 03/20/25 15:24 Hx Tobacco Use Yes 03/20/25 15:24 Years Smoking Packs Smoked per Day Smoking Cessation Date was within the last 15 years Hx Smoking Cessation Date Hx Smoking Cessation Counseling Hematologic Medial History Hematologic Hx - food and beverage lead: 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 Specify any problems Hx of Preganancy in last 3 No 03/20/25 15:24 Months Nurse Filling Out Transfusion [email or web address] 03/20/25 15:24 Questions: Date: 03/20/25 03/20/25 15:24 Time: 15:03/20/25 15:24 Patient unable to answer at this time (ie. confused, unrespo /Reproductio n History /Reproductiv e History - food and beverage lead: /Reproductiv e Hx- food and beverage lead Hx Now No 03/20/25 15:24 Gestational Age [...] 1 - 2 puff inhalation Q6H PRN NV N 06/17/16 Unknown History aerosol inhaler (Ventolin [...] Rx TABLETS c (more content not included)... [facility] 03-20-2025 [place] Telephone (FPWADS) ABDOUL FAITH ([id number]) 1980 F Date Time Provider Department 03/20/25 ILA CANALES During your visit today, we recorded the following information about you: Karlene Lanza LPN 03/20/2025 9:56 AM Signed Received visit summary from [facility]. Placed in provider's inbox for review. Route to [place] scanning Allergies As of Date: 03/20/2025 Noted Allergy Reaction AUGMENTIN (AMOXICILLIN-POT CLAVUL*07/01/2021 6 - Diarrhea SEASONAL ALLERGIES 11/13/2007 5 - Intolerance Date Reviewed: 03/12/2025 Reviewed by: Pao Ponce LPN - Fully Assessed Reason for Visit: Received Outside Medical Records [[id number]] Cmt: [facility] Prescriptions as of 03/20/2025 - [...] Encounter Status:Closed by KARLENE LANZA on 03/20/25 [facility] MR/Malvin 03-18-2025 MR/KRYSTIAN [facility] [address] [place] [address], [address] [place] [address] OFFICE VISIT Date of Service: 03/18/25 MR#: [id number] Acct: [id number] Name: ABDOUL FAITH MONROE Rep #: [id number] : 1980 Provider: Dr. Edilma Andino i, MD Age/Sex: 44/F Location: [facility] Status: Signed Intake Vital Signs 03/13/25 09:25 03/18/25 08:30 Height 5 ft 5 in 5 ft 5 in Weight: 174 lb BMI 28.9 BP 114/89 H Pulse 99 Intake Visit Reasons: ER F/U Stones Chief Complaint: ER follow up for 6mm kidney stone Director Clinical Research Required: No Accompanied by: self Is patient in pain?: Yes (aching kidney stone pain ) Pain scale (1-10): 7 Allergies amoxicillin (From Augmentin) Adverse Reaction (Mild, Verified 03/13/25 09:24) Abd cramps/diarrhea clavulanic acid (From Augmentin) Adverse Reaction (Mild, Verified 03/13/25 09:24) Abd cramps/diarrhea Medications ???Medication ???Instructions ???Recorded ???Confirmed ???Type albuterol sulfate 90 mcg/actuation 1 - 2 puff inhalation Q6H PRN NV N 06/17/16 03/18/25 History aerosol inhaler (Ventolin [...] Suggs on 03/18/25 08:34 Off Ur Spec [place] 1.015 Last Edit by Jeannie Suggs on [...] Last Edit by (more content not included)... [facility]BD[facility] ([id number]) 1980 F Date Time Provider Department 03/17/25 ILA CANALES FPWADS During your visit today, we recorded the following information about you: Michelle Brown LPN 03/17/2025 3:35 PM Signed Received 03/15/2025 from [facility]. Placed in provider's inbox for review. Route to [place] for scanning Allergies As of Date: 03/17/2025 Noted Allergy Reaction AUGMENTIN (AMOXICILLIN-POT CLAVUL*07/01/2021 6 - Diarrhea SEASONAL ALLERGIES 11/13/2007 5 - Intolerance Date Reviewed: 03/12/2025 Reviewed by: Pao Ponce LPN - Fully Assessed Reason for Visit: Received Outside Medical Records [[id number]] Cmt: [facility] ER visit summary 03/13/2025 abdominal pain [...] Status:Closed by MICHELLE BROWN on 03/17/25 Normal [facility] Abdomen/Pelvis W IV Cont ONL Yon 03-13-2025 Abdomen/Pelvis W IV Cont ONLY [facility] [address] [place] [address] Abdomen/Pelvis W IV Cont ONLY MR#: [id number] Acct: [id number] Name: ABDOUL FAITH Rep #: [id number] : 1980 F 44 From: Panfilo Su MD PCP: Dr. Rj Canales MD Status: REG ER Study: Abdomen/Pelvis W IV Cont ONLY Date of Exam: Exam# [id number] Ordering Dr: Derek Sanchez MD PROCEDURE: ABDOMEN/PELVIS [...] right kidney. Normal appendix Cholelithiasis Reading Location: [facility] CC: Dr. Derek Sanchez MD; Dr. Rj Canales MD Java Front End Web Developer: Signed Normal [facility] Absolute lymphocyte countOrd ered By: Derek Sanchez on 03-13-2025 Lymphocytes Auto (Unsp spec) [#/Vol] 1.27 10*3/uL 0.83-4.51 [facility] Absolute neutrophil countOrd ered By: Derek Sanchez on 03-13-2025 Neutrophils (Bld) [#/Vol] 5.2 10*3/uL 2.0-7.7 [facility] Anion gap in Serum or Plasma Ordered By: Derek Sanchez on 03-13-2025 Anion gap [Moles/Vol] 9 mmol/L 5-15 [facility] Automated blood erythrocyte countOrdered By: Derek Sanchez on 03-13-2025 RBC (Bld) [#/Vol] 4.92 10*6/uL Normal 4.2-5.4 [facility] Comment on above: Performed By: #### L 700.0100, L500.2500, L100.0100 #### [facility] [address] [place], [place], [id number] Automated blood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 Performed By: #### S #### [facility] CLIA [id number] [address] [place] [address] OF JOSE DAVID GROSS DESCRIPTION Normal [facility] Comment on above: Order Comment: Speci men Type: TISSUE SPECIMEN Ordering Facility: [facility] Address: [address] [place] [address] Result Comment: Basilia heredia, Biopsy Labeled "tip of tongue" Received: In Formalin Number of tissue fragments: One Specimen dimensions: 0.5 x 0.4 x 0.3 cm Cassette Code: Totally submitted intact DL May 10, 2024 9:56 PM [place] [address] Performed By: #### S #### [facility] CLIA [id number] [address] [place] [address] MICROSCOPIC DESCRIPTION Normal [facility] Comment on above: Order Comment: Speci huber Type: TISSUE SPECIMEN Ordering Facility: [facility] Address: [address] [place] [address] Result Comment: The nodule consists of a proliferation of densely collagenous fibrovascular tissue with sparse chronic inflammation. This is overlaid by thinly keratinized stratified squamous epithelium undergoing the usual pattern of maturation. Performed By: #### S #### [facility] CLIA [id number] [address] [place] [address] OF JOSE DAVID CNPBailey 01-10-2024 CNPN Telephone (CDLBME) ABDOUL FAITH ([id number]) 1980 F Date Time Provider Department 01/10/24 [...] Date Reviewed: 12/21/2023 Reviewed by: Nancy Viera APRN.NET PROGRAMMER - Fully Assessed Reason for Visit: Reminder Call [[id number]] Prescriptions as of 01/10/2024 - buPROPion SR [...] Encounter Status:Closed by LIDIA ANN [facility] [facility] Office Visit (CHRISTOPHER ) ABDOUL FAIHT ([id number]) 1980 F Date Time Provider Department 12/14/23 3:00 PM JUAN MANUEL GAYLE During your visit today, we recorded the following information about you: Blood pressure Weight Height 96/64 88 kg 1.664 m Juan Manuel Gayle DO 12/14/2023 5:00 PM Signed [facility] SECTION [facility] OUTPATIENT VISIT DATE December 14, 2023 PRIMARY CARE PHYSICIAN: Ila Canales [address] [place] [address] [place] [address] HISTORY OF PRESENT ILLNESS: Ms. Faith is [...] the parents. 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 She is a non-smoker, social drinker. She [...] provokable response and possible dysrhythmia 3. 14-day audit spec. The patient may however take this off [...] change and fatigue. (more content not included)... Normal [facility] 12-14-2023 [facility] Telephone (CORRYShoop) ABDOUL FAITH ([id number]) 1980 F Date Time Provider Department 12/14/23 JUAN MANUEL GAYLE During your visit today, we recorded the following information about you: Laura Duncan MA 12/14/2023 4:43 PM Signed Please call Pt to schedule Echo and Stress ECG ordered by Dr Gayle today. Zully Holloway 12/19/2023 9:32 AM Signed First attempt at contacting patient, left to schedule testing Zully Holloway 12/21/2023 12:33 [...] Encounter Status:Closed by LAURA DUNCAN on 12/14/23 [facility] Absolute lymphocyte countOrd ered By: Anju Bermudez on 05-30-2023 Lymphocytes Auto (Unsp spec) [#/Vol] 1.99 10*3/uL 0.83-4.51 [facility] Basophil percentageOrdered B y: Anju Bermudez on 05-30-2023 Basophils/100 WBC (Bld) 0.3 % 0-1 [facility] Chloride [Moles/Vol] 109 mmol/L 98-107 [facility] Eosinophils/100 WBC (Bld) 3.9 % 0-5 [facility] Glucose [Mass/Vol] 94 mg/dL 74-106 [facility] Neutrophils (Bld) [#/Vol] 3.1 10*3/uL 2.0-7.7 [facility] Neutrophils/100 WBC (Bld) 52.5 % 47-70 [facility] Potassium [Moles/Vol] 3.8 mmol/L 3.5-5.1 [facility] Sodium [Moles/Vol] 138 mmol/L 136-145 [facility] WBC (Bld) [#/Vol] 5.9 10*3/uL 4.4-11.0 [facility] Beta hCG serum qualOrdered B y: Anju Bermudez on 05-30-2023 Beta HCG ( test) Ql Negative [facility] Blood erythrocytes count (nu mber/volume)Ordered By: Anju Bermudez on 05-30-2023 RBC (Bld) [#/Vol] 4.70 10*6/uL 4.2-5.4 [facility] Blood hemoglobin measurement (mass/volume)Ordered By: Anju Bermudez on 05-30-2023 Hemoglobin (Bld) [Mass/Vol] 13.6 g/dL 12.0-15.0 [facility] Blood lymphocytes/100 leukoc ytesOrdered By: Anju Bermudez on 05-30-2023 Lymphocytes/100 WBC (Bld) 34.0 % 19-41 [facility] Blood monocytes/100 leukocyt esOrdered By: Anju Bermudez on 05-30-2023 Monocytes/100 WBC (Bld) 9.0 % 0-10 [facility] Blood platelet mean volumeOr dered By: Anju Bermudez on 05-30-2023 Platelet mean volume (Bld) [Entitic vol] 8.9 fL 6.2-12.0 [facility] Determination of erythrocyte mean corpuscular volume (MCV)Ordered By: Anju Bermudez on 05-30-2023 MCV (RBC) [Entitic vol] 85.5 fL 81-99 [facility] Hematocrit Auto (Bld) [Volum e fraction]Ordered By: Anju Bermudez on 05-30-2023 Hematocrit (Bld) [Volume fraction] 40.2 % 37-47 [facility] Influenza virus A and B and SARS-CoV-2 (COVID-19) Ag panel - Upper respiratory specimOrdered By: Anju Bermuedz on 05-30-2023 SARS-CoV-2 & FLU Antigen (Rapid) Influenzae A [facility] - Chemistry and C hemistry - challengeOrdered By: Anju Bermudez on 05-30-2023 CO2 [Moles/Vol] 24.0 mmol/L 21.0-32.0 [facility] Urea nitrogen/Creatinine [Mass ratio] 17.5 mg/mg 10-20 [facility] - Hematology and Cell countsOrdered By: Anju Bermudez on 05-30-2023 Erythrocyte distribution width (RBC) [Entitic vol] 39.4 fL 35.1-43.9 [facility] Erythrocyte distribution width (RBC) [Ratio] 12.6 % 11.6-14.6 [facility] Immature granulocytes/100 WBC (Bld) 0.300 % 0.0-0.9 [facility] Comment on above: IG% - Immature Granu locytes (promyelocytes, myelocytes and metamyelocytes) > 1% indicates that a LEFT SHIFT is Present. MCH (RBC) [Entitic mass] 28.9 pg 27.0-32.0 [facility] Nucleated RBC/100 WBC (Bld) [Ratio] 0 % 0-5 [facility] MCHC Auto (RBC) [Mass/Vol]Or dered By: Anju Bermudez on 05-30-2023 MCHC (RBC) [Mass/Vol] 33.8 g/dL 32-36 [facility] No Panel InformationOrdered By: Anju Bermudez on 05-30-2023 D-Dimer Quantitative (PE/DVT) 0.38 FEU/ug/m 0.27-0.49 [facility] Comment on above: NORMAL D-Dimer level (<0.50) indicates no DVT or PE. Estimated Creatinine Clearance Calc 82.43 ml/min [facility] Estimated GFR (MDRD) Amer 101 mL/min >60 [facility] Comment on above: GFR Calc Estimated GFR (MDRD) Non-Af Amer 84 mL/min >60 [facility] Comment on above: Non- GFR Calc Platelets bldOrdered By: Grace Bermudez on 05-30-2023 Platelets (Bld) [#/Vol] 252 10*3/uL 150-450 [facility] Serum or plasma calcium unruly urement (mass/volume)Ordered By: Anju Bermudez on 05-30-2023 Calcium [Mass/Vol] 8.8 mg/dL 8.5-10.1 [facility] Serum or plasma creatinine m easurement (mass/volume)Ordered By: Anju Bermudez on 05-30-2023 Creatinine [Mass/Vol] 0.80 mg/dL 0.55-1.02 [facility] Comment on above: The validity of the calculated GFR & GFRAA in patients over 70 years has not been determined. Clinical correlation is essential. Serum or plasma urea nitroge n measurement (mass/volume)Ordered By: Anju Bermudez on 05-30-2023 Urea nitrogen [Mass/Vol] 14 mg/dL 7-18 [facility] Thin prep Papanicolaou smear with manual screeningOrdered By: Anju Bermudez on 05-30-2023 Thin prep Papanicolaou smear with manual screening 5 5-15 [facility] XR Chest PA and Lateralon IMPRESSION: No acute radiographic abnormality. Java Front End Web Developer: PSCB Transcribe Date/Time: May 22 2023 10:35A Dictated by : BEKAH ANG MD This examination was interpreted and the report reviewed and electronically signed by: BEKAH ANG MD on May 22 2023 10:35AM [facility] DIVISION OF RADIOLOGY * * *Final Report* [...] soft tissues: Unremarkable. DIVISION OF RADIOLOGY Provider, [facility] - 05/22/2023 * * *Final Report* * [...] Unremarkable. IMPRESSION IMPRESSION: No acute radiographic abnormality. Java Front End Web Developer: LIZZ Transcribe Date/Time: May 22 2023 10:35A Dictated by : BEKAH ANG MD This examination was interpreted and the report reviewed and electronically signed by: BEKAH ANG MD on May 22 2023 10:35AM EST [facility] Radiology Study observation (narrative) Scott valladares [facility] XR Chest PA and LateralOrder ed By: Ccf Provider on 05-22-2023 [facility] CT FLANK WO IVCONon 11-16-19 [facility] COVID PCR, SCREENING CONGREG ATEon 11-27-2019 CORONAVIRUS 2019,PCR NOT DETECTED Normal Not Detected [facility] Comment on above: Result Comment: This assay [...] patient management decisions. Fact sheet for providers: https://www.fda.gov/media/000387/download Fact sheet for patients: https://www.fda.gov/media/390993/download This test has received FDA Emergency Use Authorization (EUA) and has been verified by [facility] ([facility]). This test is only authorized for the duration of time that circumstances exist to justify the authorization of the emergency use of in vitro diagnostic tests for the detection of SARS-CoV-2 virus and/or diagnosis of COVID-19 infection under section 564(b)(1) of the Act, 21 U.S.C. 360bbb-3(b)(1), unless the authorization is terminated or revoked sooner. [facility] ([facility]) is certified under CLIA-88 as qualified to perform high complexity testing. This tests analytical performance characteristics have been determined by [facility]. Testing is performed at [facility] is located at [address] [place] [address] (CLIA License #[id number], CAP #[id number]). Performed By: #### C VCLA #### [facility] [address] [place] [address] COVID PCR, SCREENING CONGREG ATEon 11-26-2019 Lab Specimen Source Nasal, Nasopharyngeal Normal [facility] Comment on above: Performed By: #### C VCLA #### [facility] [address] [place], [place] [id number] Vital Signs Date Time Vital Sign Value Performing Clinician Faci lity 03-13-2025 12:55-0400 Body temperature 97.8 [degF] Dr. Derek Sanchez MD Work Phone: 2(073)298-433808 [place] [address] 03-13-2025 12:55-0400 Diastolic blood pressure 78 mm[Hg] Dr. Derek Sanchez MD Work Phone: 7(681)848-284308 [place] [address] 03-13-2025 12:55-0400 Heart rate 64 /min Dr. Derek Sanchez MD Work Phone: 3(770)337-779208 [place] [address] 03-13-2025 12:55-0400 Respiratory rate 18 /min Dr. Derek Sanchez MD Work Phone: 7(808)838-380208 [place] [address] 03-13-2025 12:55-0400 SaO2% (BldA) [Mass fraction] 99 % Dr. Derek Sanchez MD Work Phone: 8(753)777-481808 [place] [address] 03-13-2025 12:55-0400 Systolic blood pressure 134 mm[Hg] Dr. Derek Sanchez MD Work Phone: 5(758)721-378329 [place] [address] 03-13-2025 09:25-0400 Body height 165.[address] Derek Sanchez MD Work Phone: 5(875)354-250329 [place] [address] 03-13-2025 09:25-0400 Body mass index (BMI) [Ratio] 29.9 kg/m2 Dr. Derek Sanchez MD Work Phone: 4(396)291-068108 [place] [address] 03-13-2025 09:25-0400 Body weight 81.[address] Derek Sanchez MD Work Phone: [facility] 07-02-2024 08:18-0500 Body height 165.1 cm Trini Blackburn DO Work Phone: [facility] 07-02-2024 08:18-0500 Body mass index (BMI) [Ratio] 31.28 kg/m2 Trini Blackburn DO Work Phone: [facility] 07-02-2024 08:18-0500 Body temperature 97.9 [degF] Trini Blackburn DO Work Phone: [facility] 07-02-2024 08:18-0500 Body weight 85.28 kg Trini Blackburn DO Work Phone: [facility] 07-02-2024 08:18-0500 Diastolic blood pressure 85 mm[Hg] Trini Blackburn DO Work Phone: [facility] 07-02-2024 08:18-0500 Heart rate 85 /min Trini Blackburn DO Work Phone: [facility] 07-02-2024 08:18-0500 Respiratory rate 18 /min Trini Blackburn DO Work Phone: [facility] 07-02-2024 08:18-0500 SaO2% (BldA) [Mass fraction] 99 % Trini Blackburn DO Work Phone: [facility] 07-02-2024 08:18-0500 Systolic blood pressure 121 mm[Hg] Trini Blackburn DO Work Phone: [facility] 12-21-2023 07:43-0400 Body height 165.1 cm Nancy Viera APRN.NET PROGRAMMER Work Phone: [facility] 12-21-2023 07:43-0400 Body mass index (BMI) [Ratio] 32.28 kg/m2 Nancy Viera APRN.NET PROGRAMMER Work Phone: [facility] 12-21-2023 07:43-0400 Body weight 88 kg Nancy Viera APRN.NET PROGRAMMER Work Phone: [facility] 12-21-2023 07:43-0400 Diastolic blood pressure 85 mm[Hg] Nancy Viera APRN.NET PROGRAMMER Work Phone: [facility] 12-21-2023 07:43-0400 Heart rate 81 /min Nancy Viera APRN.NET PROGRAMMER Work Phone: [facility] 12-21-2023 07:43-0400 SaO2% (BldA) [Mass fraction] 98 % Nancy Viera APRN.NET PROGRAMMER Work Phone: [facility] 12-21-2023 07:43-0400 Systolic blood pressure 120 mm[Hg] Nancy Viera APRN.NET PROGRAMMER Work Phone: [facility] 12-14-2023 15:32-0400 Body height 166.4 cm Juan Manuel Gayle DO Work Phone: [facility] 12-14-2023 15:32-0400 Body mass index (BMI) [Ratio] 31.79 kg/m2 Juan Manuel Gayle DO Work Phone: [facility] 12-14-2023 15:32-0400 Body weight 88 kg Juan Manuel Gayle DO Work Phone: [facility] 12-14-2023 15:32-0400 Diastolic blood pressure 64 mm[Hg] Juan Manuel Gayle DO Work Phone: [facility] 12-14-2023 15:32-0400 Systolic blood pressure 96 mm[Hg] Juan Manuel Gayle DO Work Phone: [facility] 09-15-2023 11:26-0400 Body weight 88.45 kg Nancy Viera APRN.NET PROGRAMMER Work Phone: [facility] 09-15-2023 11:26-0400 Diastolic blood pressure 72 mm[Hg] Nancy Viera APRN.NET PROGRAMMER Work Phone: [facility] 09-15-2023 11:26-0400 Systolic blood pressure 114 mm[Hg] Nancy Viera APRN.NET PROGRAMMER Work Phone: [facility] 08-22-2023 09:02-0400 Diastolic blood pressure 70 mm[Hg] Ila Canales MD Work Phone: [facility] 08-22-2023 09:02-0400 Systolic blood pressure 110 mm[Hg] Ila Canales MD Work Phone: [facility] 08-22-2023 08:38-0400 Body height 166.4 cm Ila Canales MD Work Phone: [facility] 08-22-2023 08:38-0400 Body weight 88 kg Ila Canales MD Work Phone: [facility] 08-22-2023 08:38-0400 Heart rate 88 /min Ila Canales MD Work Phone: [facility] 08-22-2023 08:38-0400 SaO2% (BldA) [Mass fraction] 100 % Ila Canales MD Work Phone: [facility] 05-30-2023 10:04-0500 Diastolic blood pressure 97 mm[Hg] [facility] 05-30-2023 10:04-0500 Heart rate 87 /min [facility] 05-30-2023 10:04-0500 Respiratory rate 16 /min [facility] 05-30-2023 10:04-0500 SaO2% (BldA) [Mass fraction] 98 % [facility] 05-30-2023 10:04-0500 Systolic blood pressure 119 mm[Hg] [facility] 05-30-2023 08:31-0500 Body height 165.1 cm [facility] 05-30-2023 08:31-0500 Body mass index (BMI) [Ratio] 31.4 kg/m2 [facility] 05-30-2023 08:31-0500 Body temperature 97.2 [degF] [facility] 05-30-2023 08:31-0500 Body weight 85.72 kg [facility] 05-20-2023 12:06-0500 Body temperature 97.7 [degF] César Fernandez MD Work Phone: [facility] 05-20-2023 12:06-0500 Body weight 84.91 kg César Fernandez MD Work Phone: [facility] 05-20-2023 12:06-0500 Diastolic blood pressure 100 mm[Hg] César Fernandez MD Work Phone: [facility] 05-20-2023 12:06-0500 Heart rate 92 /min César Fernandez MD Work Phone: [facility] 05-20-2023 12:06-0500 Respiratory rate 20 /min César Fernandez MD Work Phone: [facility] 05-20-2023 12:06-0500 SaO2% (BldA) [Mass fraction] 100 % César Fernandez MD Work Phone: [facility] 05-20-2023 12:06-0500 Systolic blood pressure 134 mm[Hg] César Fernandez MD Work Phone: [facility] 04-02-2023 08:44-0400 Body temperature 98.8 [degF] Aminah Athy PA-C Work Phone: [facility] 04-02-2023 08:44-0400 Body weight 82.46 kg Aminah Athy PA-C Work Phone: [facility] 04-02-2023 08:44-0400 Diastolic blood pressure 80 mm[Hg] Aminah Athy PA-C Work Phone: [facility] 04-02-2023 08:44-0400 Heart rate 100 /min Aminah Athy PA-C Work Phone: [facility] 04-02-2023 08:44-0400 Respiratory rate 20 /min Aminah Athy PA-C Work Phone: [facility] 04-02-2023 08:44-0400 SaO2% (BldA) [Mass fraction] 99 % Aminah Athy PA-C Work Phone: [facility] 04-02-2023 08:44-0400 Systolic blood pressure 118 mm[Hg] Aminah Athy PA-C Work Phone: [facility] 07-25-2022 14:57-0500 Body height 167.6 cm Ila Canales MD Work Phone: [facility] 07-25-2022 14:57-0500 Body weight 90.27 kg Ila Canales MD Work Phone: [facility] 07-25-2022 14:57-0500 Diastolic blood pressure 73 mm[Hg] Ila Canales MD Work Phone: [facility] 07-25-2022 14:57-0500 Heart rate 82 /min Ila Canales MD Work Phone: [facility] 07-25-2022 14:57-0500 SaO2% (BldA) [Mass fraction] 97 % Ila Canales MD Work Phone: [facility] 07-25-2022 14:57-0500 Systolic blood pressure 119 mm[Hg] Ila Canales MD Work Phone: [facility] Encounters Encounter Date Encounter Type Care Provider Facility Start: 03-28-2025 Encounter for other preprocedural examination [facility] Start: 03-27-2025 ambulatory [facility] [place] [facility] [place]: 03-27-2025 End: 03-27-2025 ambulatory [facility] Facility:[facility] Start: 03-18-2025 End: 03-18-2025 ambulatory Rj Canales [place] [place] Start: 03-13-2025 End: 03-13-2025 Emergency department patient visit Dr. Derek Sanchez MD Work Phone: -Emergency Department Work Phone: Start: 03-12-2025 End: 03-12-2025 ambulatory [facility] CANALES Facility:[facility] Start: 01-24-2025 End: 01-26-2025 Refill Trini Blackburn DO Work Phone: [place] [facility] ([facility]) Comment on above: Refill Request (Albu terol inhaler) Start: 11-22-2024 End: 11-22-2024 Telephone encounter Trini Alexey DO Work Phone: [facility] ([facility]) Comment on above: Appointment (6 Month Follow up) Start: 10-07-2024 End: 10-07-2024 Emergency department patient visit Out of Town Doctor Facility:[facility] Start: 09-23-2024 End: 09-23-2024 Refill Trini Alexey DO Work Phone: [facility] ([facility]) Comment on above: Refill Request (Destin hollis. Manish) Start: 08-28-2024 End: 08-29-2024 ambulatory Trini Alexey DO Work Phone: [facility] ([facility]) Start: 08-28-2024 End: 08-29-2024 Patient encounter procedure Trini Blackburn DO Work Phone: [facility] ([facility]) Comment on above: Inhaler Start: 08-26-2024 End: 08-27-2024 Telephone encounter Trini Blackburn DO Work Phone: [facility] ([facility]) Comment on above: Curriculum Assistant Principal - O ivory ([facility] - updated instructions) Start: 08-23-2024 End: 08-23-2024 Refill Benigno Laguerre DO Work Phone: [facility] ([facility]) Comment on above: Refill Request Returning Patient's Call Start: 08-21-2024 End: 08-21-2024 ambulatory Out of Town Doctor Facility:[facility] Start: 08-21-2024 End: 08-21-2024 ambulatory Out of Town Doctor Facility:[facility] Start: 08-21-2024 ambulatory Health Risk Assessment Facility:[facility] Start: 07-08-2024 End: 07-08-2024 Telephone encounter Benigno Laguerre DO Work Phone: [facility] ([facility]) Comment on above: Insurance Authorizat ion ([place] for albuterol inhaler) Start: 07-02-2024 End: 07-02-2024 Telephone encounter Trini Blackburn DO Work Phone: [place] [facility] ([facility]) Comment on above: Referral Information (Cardiology) Start: 07-02-2024 End: 07-02-2024 Office outpatient new 30 minutes Trini Blackburn DO Work Phone: [facility] ([facility]) Comment on above: Depression, unspecif ied depression type (Primary Dx); Mild persistent asthma without complication; Obesity (BMI 30.0-34.9); Palpitations; Lightheadedness Start: 07-02-2024 End: 07-02-2024 ambulatory TRINI BLACKBURN Facility:[facility] Start: 02-12-2024 End: 02-12-2024 Telephone encounter Ila Canales MD Work Phone: [facility] Comment on above: Received Outside Med ical Records ([facility] ED 02/09) Start: 01-18-2024 Refill Ginny UMANZOR.NET PROGRAMMER Work Phone: [facility] Comment on above: Refill Request Start: 01-16-2024 Chart abstracting [facility] Work Phone: Neurology Comment on above: PSG Check In Start: 01-13-2024 Refill Nancy LEONARD RN.NET PROGRAMMER Work Phone: OB/Gynecology Comment on above: Refill Request Start: 01-10-2024 Telephone encounter Lidia mack RN Cardiology Lab Comment on above: Reminder Call Start: 12-21-2023 Telephone encounter Nancy rdz APRN.NET PROGRAMMER Work Phone: OB/Gynecology Comment on above: Insurance Authorizat ion Start: 12-21-2023 End: 12-21-2023 Patient encounter procedure Nancy Viera APRN.NET PROGRAMMER Work Phone: OB/Gynecology Comment on above: Gastroesophageal [...] Start: 12-14-2023 End: 12-14-2023 ambulatory ILA CANALES Facility:[facility] Start: 12-14-2023 Telephone encounter Juan Manuel Gayle DO Work Phone: Cardiology Comment on above: Appointment Start: 11-22-2023 Refill Ila burk MD Work Phone: [facility] Comment on above: Refill Request Start: 10-02-2023 Telephone encounter Keo Maynrad i, MD Work Phone: Cardiology Comment on above: Appointment Start: 09-15-2023 End: 09-15-2023 Patient encounter procedure Nancy Viera APRN.CNP Work Phone: OB/Gynecology Comment on above: Encounter [...] End: 09-15-2023 Patient encounter status Nancy Viera APRN.CNP Work Phone: [facility] Work Phone: Start: 08-22-2023 End: 08-22-2023 Patient encounter procedure Ila Canales MD Work Phone: [facility] Comment on above: Well adult exam (Marge sofiya Dx); Mild persistent asthma without complication; Neck pain on left side; Cervicogenic headache; Palpitations; Atypical chest pain; Systolic click; Chronic foot pain, left; Tetanus-diphtheria (Td) vaccination Start: 08-22-2023 End: 08-22-2023 Patient encounter status Ila Canales MD Work Phone: [facility] Work Phone: Start: 08-10-2023 Documentation procedure Mammog jesu Coordinator [facility] Start: 08-10-2023 Letter encounter Mammography Coordinator [facility] Department Start: 08-09-2023 End: 08-09-2023 Subsequent hospital visit by physician Screen Mammo [facility] Mammogram Comment on above: Encounter for screen ing mammogram for breast cancer [Z12.31] Start: 08-02-2023 ambulatory Ila burk MD Work Phone: Internal Medicine [facility] Start: 05-30-2023 End: 05-30-2023 Emergency department patient visit [facility] Work Phone: Start: 05-22-2023 End: 05-22-2023 Subsequent hospital visit by physician Xr [facility] Work Phone: Radiology Comment on above: Subacute cough [R05. 2] Start: 05-20-2023 End: 05-20-2023 Patient encounter procedure César Fernandez MD Work Phone: [facility] Comment on above: Subacute cough (Prim elisha Dx); Hemoptysis; Hoarse voice quality; Asthma with acute exacerbation, unspecified asthma severity, unspecified whether persistent; Acute non-recurrent sinusitis, unspecified location; Mild persistent asthma without complication Start: 05-06-2023 Refill Ila burk MD Work Phone: [facility] Comment on above: Refill Request Start: 04-12-2023 Telephone encounter Ila Canales MD Work Phone: [facility] Comment on above: Medication Request ( [facility] Al[facility]erol ) Start: 04-02-2023 End: 04-02-2023 Patient encounter procedure Aminah R Srinath DIAZ Work Phone: [facility] Comment on above: LRTI (lower respirat ory tract infection) (Primary Dx) Start: 10-12-2022 Refill Ila burk MD Work Phone: [facility] Comment on above: Refill Request Start: 09-21-2022 Telephone encounter Aminah Ferrer ese PA-C Work Phone: [facility] Comment on above: Results Start: 07-25-2022 End: 07-25-2022 Patient encounter procedure lIa Canales MD Work Phone: [facility] Comment on above: Well adult exam (Marge sofiya Dx); Mild persistent asthma without complication; Vaginal bacteriosis; Atypical chest pain; Adjustment disorder with mixed anxiety and depressed mood; Screening for lipid disorders; Obesity, Class I, BMI 30-34.9 Start: 07-25-2022 End: 07-25-2022 Patient encounter status Ila Canales MD Work Phone: [facility] Start: 06-27-2022 Telephone encounter Ginny babin APRN.CNP Work Phone: [facility] Comment on above: Results Start: 06-25-2022 Documentation procedure Mammog jesu Coordinator [facility] Start: 06-25-2022 Letter encounter Mammography Coordinator [facility] Department Start: 12-01-2021 ambulatory Ila burk MD Work Phone: Internal Medicine Main [place] Start: 11-15-2021 End: 11-15-2021 Subsequent hospital visit by physician [facility] (I-Stat) Work Phone: Cat Scan [...] DTaP,Tdap,Td Vaccine (3 - Td or Tdap) [facility] Start: 09-14-2028 Screening for malign ant neoplasm of cervix [facility] Start: 07-02-2025 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 jane Disease Visit Annual PCP Team Chronic Disease Visit [facility] Start: 02-03-2025 Influenza vaccination C [place] Start: 01-31-2025 End: 01-31-2025 Patient encounter procedure 01/31/2025 11:20 AM EDT Distance [facility] ([facility]) [address] [facility] [address] [place], [place] [id number] Trini Blackburn DO [address] [place] [address] [facility] Internal Medicine [facility] ([facility]) Comment on above: Overall health Start: 09-17-2024 End: 09-17-2024 Patient encounter procedure 09/17/2024 9:00 AM EDT Office Visit OB/Gynecology [address] [place] [address] Nancy Viera APRN.NET PROGRAMMER [address] [place] [address] Annual OB/Gynecology Comment on above: Annual Start: 08-21-2024 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 Disease Visit Annual PCP Team Chronic Disease Visit [facility] Start: 08-21-2024 Anxiety Screening Anxiety Screening [facility] Start: 08-21-2024 Depression Screening Depression Scre ening [facility] Start: 08-08-2024 End: 10-14-2024 MG Breast Screening [facility] SCREENING Radiology Routine Encounter for screening mammogram for breast cancer Expected: 08/08/2024 (Approximate), Expires: 10/14/2024 [facility] Work Phone: Comment on above: Expected: 08/08/2024 (Approximate), Expires: 10/14/2024 Start: 08-08-2024 Screening for malign ant neoplasm of breast Mammogram Screening [facility] Start: 08-08-2024 End: 08-08-2024 Patient encounter procedure 08/08/2024 7:50 AM EST Appointment Mammogram [address] [place] [address] Mammogram Start: 02-29-2024 End: 02-29-2024 Patient encounter procedure 02/29/2024 9:20 AM EDT Office Visit Family Practice [address] [facility] [place] [address] Ila Canales MD [address] [facility] [place] [address] 6 month follow up Family Practice Comment on above: 6 month follow up Start: 02-14-2024 End: 02-14-2024 Patient encounter procedure 02/14/2024 9:00 PM EDT Office Visit Neurology [address] [place] [address] Palpitations [R00.2]; Atypical chest pain [R07.89]; Systolic click [R01.1]; Daytime hypersomnolence [G47.19] Neurology Comment on above: Palpitations [R00.2] ; Atypical chest pain [R07.89]; Systolic click [R01.1]; Daytime hypersomnolence [G47.19] Start: 02-07-2024 End: 02-07-2024 Patient encounter procedure 02/07/2024 7:30 AM EDT Office Visit OB/Gynecology [address] [place], [place] [phone] Nancy Viera, TRAY CHECKER.NET PROGRAMMER [address] [place], [place] [phone] wt mgmt f/u OB/Gynecology Comment on above: wt mgmt f/u Start: 02-04-2024 Covid-19 Vaccine ( season) Covid-19 Vaccine () [facility] Start: 02-04-2024 Covid-19 Vaccine ( season) Covid-19 Vaccine () [facility] Start: 02-04-2024 Influenza vaccination [facility] [place] Start: 01-11-2024 Subsequent hospital visit by physician 01/11/2024 8:00 AM EDT Hospital Encounter Cardiology Lab [address] [place] [address] Palpitations [R00.2] Cardiology Lab Comment on above: Palpitations [R00.2] Start: 01-11-2024 End: 01-11-2024 Patient encounter procedure Cardiology Lab Comment on above: Palpitations [R00.2] Start: 12-21-2023 End: 12-21-2023 Patient encounter procedure 12/21/2023 8:00 AM EDT Office Visit OB/Gynecology [address] [place], [place] [phone] Nancy Viera, LALA.NET PROGRAMMER [address] [place], [place] [phone] New wt mgmt consult OB/Gynecology Comment on above: New wt mgmt consult Start: 12-14-2023 End: 12-14-2023 Patient encounter procedure 12/14/2023 3:00 PM EDT Office Visit Cardiology [address] [place], [place] [phone] Juan Manuel Gayle DO [address] [place] [address] Palpitations [R00.2]; Atypical chest pain [R07.89]; Systolic click [R01.1] Cardiology Comment on above: Palpitations [R00.2] ; Atypical chest pain [R07.89]; Systolic click [R01.1] Start: 10-19-2023 End: 10-19-2023 Patient encounter procedure 10/19/2023 1:30 PM EDT Office Visit Podiatry [address] [place], [place] [phone] Benigno Liao [address] [place], [place] [phone] pt getting xray prior to visit Chronic [...] Malaise and fatigue Expected: 09/15/2023, Expires: 12/15/2023 [facility] Work Phone: Comment on above: Expected: 09/15/2023 , Expires: 12/15/2023 Start: 09-15-2023 End: 12-15-2023 CBC panel - Blood by Automated count COMPLETE BLOOD COUNT Lab Routine Class 1 obesity with body mass index (BMI) of 31.0 to 31.9 in adult, unspecified obesity type, unspecified whether serious comorbidity present Screening for deficiency anemia Expected: 09/15/2023, Expires: 12/15/2023 [facility] Work Phone: Comment on above: Expected: 09/15/2023 , Expires: 12/15/2023 Start: 09-15-2023 End: 12-15-2023 Comprehensive metabolic 2000 panel - Serum or Plasma COMPREHENSIVE METABOLIC PANEL Lab Routine Class 1 obesity with body mass index (BMI) of 31.0 to 31.9 in adult, unspecified obesity type, unspecified whether serious comorbidity present Screening for diabetes mellitus Screening for metabolic disorder Expected: 09/15/2023, Expires: 12/15/2023 [facility] Work Phone: Comment on above: Expected: 09/15/2023 , Expires: 12/15/2023 Start: 09-15-2023 End: 12-15-2023 Hemoglobin A1c in Blood HEMOGLOBIN A1C Lab Routine Class 1 obesity with body mass index (BMI) of 31.0 to 31.9 in adult, unspecified obesity type, unspecified whether serious comorbidity present Screening for diabetes mellitus Expected: 09/15/2023, Expires: 12/15/2023 [facility] Work Phone: Comment on above: Expected: 09/15/2023 , Expires: 12/15/2023 Start: 09-15-2023 End: 12-15-2023 Insulin [Units/volume] in Serum or Plasma INSULIN ASSAY BLOOD Lab Routine Class 1 obesity with body mass index (BMI) of 31.0 to 31.9 in adult, unspecified obesity type, unspecified whether serious comorbidity present Screening for diabetes mellitus Expected: 09/15/2023, Expires: 12/15/2023 [facility] Work Phone: Comment on above: Expected: 09/15/2023 , Expires: 12/15/2023 Start: 09-15-2023 End: 12-15-2023 Lipid 1996 panel - Serum or Plasma LIPID PANEL BASIC Lab Routine Class 1 obesity with body mass index (BMI) of 31.0 to 31.9 in adult, unspecified obesity type, unspecified whether serious comorbidity present Screening cholesterol level Expected: 09/15/2023, Expires: 12/15/2023 [facility] Work Phone: Comment on above: Expected: 09/15/2023 , Expires: 12/15/2023 Start: 09-15-2023 End: 12-15-2023 Thyrotropin [Units/volume] in Serum or Plasma THYROID STIMULATING HORMONE Lab Routine Class 1 obesity with body mass index (BMI) of 31.0 to 31.9 in adult, unspecified obesity type, unspecified whether serious comorbidity present Screening for thyroid disorder Malaise and fatigue Expected: 09/15/2023, Expires: 12/15/2023 [facility] Work Phone: Comment on above: Expected: 09/15/2023 , Expires: 12/15/2023 Start: 07-25-2023 ANNUAL PCP TEAM GLOST PLACER JANE DISEASE VISIT ANNUAL PCP TEAM CHRONIC DISEASE VISIT [facility] Start: 07-25-2023 COVID-19 VACCINE (3 - Booster for Moderna series) COVID-19 VACCINE (3 - Booster for Moderna series) [facility] Comment on above: Postponed from 10/14 (Declined at this time) Start: 07-25-2023 PNEUMOCOCCAL (2 - PCV) PNEUMOCOCCAL (2 - PCV) [facility] Comment on above: Postponed from 06/17 (Declined at this time) Start: 07-25-2023 Pneumococcal vaccination [facility] Comment on above: Postponed from 06/17 (Declined at this time) Start: 07-25-2023 Urine microalbumin profile [facility] Comment on above: Postponed from 07/12 (Declined at this time) Start: 06-24-2023 Mammography [facility] Start: 06-24-2023 Screening for malign ant neoplasm of breast Mammogram Screening [facility] Start: 06-05-2023 Behavioral Health Screening Behavioral Health Screening [facility] Start: 06-05-2023 Depression Assessment Depression Ass essment [facility] Start: 05-30-2023 [facility] Start: 02-08-2023 HPV TESTING HPV TESTING [facility] Start: 02-08-2023 PAP TESTING PAP TESTING [facility] Start: 02-08-2023 Screening for malign ant neoplasm of cervix [facility] Start: 02-03-2023 Covid-19 Vaccine (3 - 2023-24 season) Covid-19 Vaccine () [facility] Start: 02-03-2023 Influenza vaccination [facility] [place] Start: 12-02-2022 Influenza vaccination INFLUENZA (#1) [facility] Comment on above: Postponed from 02/03 (Declined at this time) Start: 07-25-2022 End: 09-24-2022 CBC panel - Blood by Automated count CBC Lab Routine Atypical chest pain Expected: 07/25/2022, Expires: 09/24/2022 [facility] Work Phone: Comment on above: Expected: 07/25/2022 , Expires: 09/24/2022 Start: 07-25-2022 End: 09-24-2022 Comprehensive metabolic 2000 panel - Serum or Plasma COMP METABOLIC PANEL Lab Routine Atypical chest pain Expected: 07/25/2022, Expires: 09/24/2022 [facility] Work Phone: Comment on above: Expected: 07/25/2022 , Expires: 09/24/2022 Start: 07-25-2022 End: 09-24-2022 Lipid 1996 panel - Serum or Plasma LIPID PANEL BASIC Lab Routine Screening for lipid disorders Expected: 07/25/2022, Expires: 09/24/2022 [facility] Work Phone: Comment on above: Expected: 07/25/2022 , Expires: 09/24/2022 Start: 07-25-2022 End: 09-24-2022 Thyrotropin [Units/volume] in Serum or Plasma TSH BLD Lab Routine Atypical chest pain Adjustment disorder with mixed anxiety and depressed mood Expected: 07/25/2022, Expires: 09/24/2022 [facility] Work Phone: Comment on above: Expected: 07/25/2022 , Expires: 09/24/2022 Start: 07-01-2022 Adult depression screening assessment DEPRESSION SCREENING [facility] Start: 07-01-2022 ANNUAL PCP TEAM GLOST PLACER JANE DISEASE VISIT ANNUAL PCP TEAM CHRONIC DISEASE VISIT [facility] Start: 06-05-2022 DEPRESSION ASSESSMENT DEPRESSION ASS ESSMENT [facility] Start: 02-03-2022 Influenza vaccination [facility] [place] Start: 01-19-2022 COVID-19 VACCINE (3 - Booster for Moderna series) COVID-19 VACCINE (3 - Booster for Moderna series) [facility] Start: 10-14-2021 COVID-19 VACCINE (3 - Booster for Moderna series) COVID-19 VACCINE (3 - Booster for Moderna series) [facility] Start: 2020 Mammography MAMMOGRAM [facility] Start: 07-12-2020 Urine microalbumin profile [facility] Start: 06-17-2012 PNEUMOCOCCAL (2 - PCV) PNEUMOCOCCAL (2 - PCV) [facility] Start: 09-13-2007 HPV Vaccine (1 - 3-d ose SCDM series) HPV Vaccine (1 - 3-dose SCDM series) [facility] Start: 09-13-1999 Hepatitis B Vaccine (1 of 3 - 19+ 3-dose series) Hepatitis B Vaccine (1 of 3 - 19+ 3-dose series) [facility] Start: 1998 Anxiety Screening Anxiety Screening [facility] Start: 1998 Depression Screening Depression Scre ening [facility] Start: 1998 SPIROMETRY SPIROMETRY [facility] Start: 1980 HEPATITIS B (1 of 3 - 3-dose series) HEPATITIS B (1 of 3 - 3-dose series) [facility] Start: 1980 Hepatitis B Vaccine (1 of 3 - 3-dose series) Hepatitis B Vaccine (1 of 3 - 3-dose series) [facility] BACTERIAL VAGINOSIS NAAT BACTERI AL VAGINOSIS NAAT Lab Routine Vaginal discharge Abdominal bloating 09/15/2023 12:22 PM EDT [facility] Work Phone: ROXANNE/TRICHOMONAS NAAT ROXANNE /TRICHOMONAS NAAT Lab Routine Vaginal discharge Abdominal bloating 09/15/2023 12:22 PM EDT [facility] Work Phone: Chlamydia trachomatis+Neisseria gonorrhoeae DNA [Presence] in Unspecified specimen by VIV with probe detection GONORRHEA/CHLAMYDIA NAAT Lab Routine Screen for STD (sexually transmitted disease) 09/15/2023 12:22 PM EDT [facility] Work Phone: End: 07-27-2023 Diagnostic mammography computer-aided detcj uni [facility] DIAGNOSTIC LT Radiology Routine Inconclusive mammogram 1 Occurrences starting 06/27/2022 until 07/27/2023 [facility] Work Phone: Comment on above: 1 Occurrences starti ng 06/27/2022 until 07/27/2023 ECG COMPLETE [facility] Work Phone: Comment on above: Ordered: 07/25/2022 End: 12-13-2024 Echocardiography ECHO Cardiology Routine Palpitations Atypical chest pain Systolic click Daytime hypersomnolence 1 Occurrences starting 12/14/2023 until 12/13/2024 [facility] Work Phone: Comment on above: 1 Occurrences starti ng 12/14/2023 until 12/13/2024 End: 12-13-2024 EXERCISE STRESS ECG (WITHOUT IMAGING) EXERCISE STRESS ECG (WITHOUT IMAGING) Cardiology Routine Palpitations Atypical chest pain Systolic click Daytime hypersomnolence 1 Occurrences starting 12/14/2023 until 12/13/2024 [facility] Comment on above: 1 Occurrences starti ng 12/14/2023 until 12/13/2024 End: 08-31-2024 MG Breast Screening [facility] SCREENING Radiology Routine Encounter for screening mammogram for breast cancer 1 Occurrences starting 08/02/2023 until 08/31/2024 [facility] Work Phone: Comment on above: 1 Occurrences starti ng 08/02/2023 until 08/31/2024 MG Breast Screening PERCY SCREENIN G Radiology Routine Encounter for screening mammogram for breast cancer 08/09/2023 1:42 PM EST [facility] Work Phone: OUTSIDE VENDOR CARDI AC OUTPATIENT EXTENDED RHYTHM RECORDING (WITHOUT TELEMETRY) OUTSIDE VENDOR CARDIAC OUTPATIENT EXTENDED RHYTHM RECORDING (WITHOUT TELEMETRY) Holter Routine Palpitations Atypical chest pain Systolic click Daytime hypersomnolence Ordered: 12/14/2023 [facility] Comment on above: Ordered: 12/14/2023 PAP TEST PAP TEST Lab Rou yuri Encounter for gynecological examination (general) (routine) with abnormal findings Screening for cervical cancer Encounter for screening for human papillomavirus (HPV) 09/15/2023 12:22 PM EDT [facility] Work Phone: Patient Education [facility] Work Phone: Patient referral [facility] Work Phone: End: 12-13-2024 Polysomnogram POLYSOMNOGRAM (PSG) Procedures Routine Palpitations Atypical chest pain Systolic click Daytime hypersomnolence 1 Occurrences starting 12/14/2023 until 12/13/2024 [facility] Comment on above: 1 Occurrences starti ng 12/14/2023 until 12/13/2024 End: 06-18-2024 Radiologic exam chest 2 views XR CHEST 2V FRONTAL/LAT Radiology Routine Subacute cough Hemoptysis 1 Occurrences starting 05/20/2023 until 06/18/2024 [facility] Work Phone: Comment on above: 1 Occurrences starti ng 05/20/2023 until 06/18/2024 End: 12-31-2022 Screening mammography bi 2-view breast inc cad [facility]CY SCREENING Radiology Routine Encounter for screening mammogram for breast cancer 1 Occurrences starting 12/01/2021 until 12/31/2022 [facility] Work Phone: Comment on above: 1 Occurrences starti ng 12/01/2021 until 12/31/2022 End: 08-01-2025 SPIROMETRY - BASELINE AND POST DILATOR SPIROMETRY - BASELINE AND POST DILATOR PFT Routine Mild persistent asthma without complication 1 Occurrences starting 07/02/2024 until 08/01/2025 [facility] Work Phone: Comment on above: 1 Occurrences starti ng 07/02/2024 until 08/01/2025 End: 07-27-2023 Us breast uni real time with image limited US BREAST LTD LT Radiology Routine Inconclusive mammogram 1 Occurrences starting 06/27/2022 until 07/27/2023 [facility] Work Phone: Comment on above: 1 Occurrences starti ng 06/27/2022 until 07/27/2023 End: 09-20-2024 XR Foot - left AP and Lateral and oblique XR FOOT GENERAL 3V AP/LAT/OBL LEFT Radiology Routine Chronic foot pain, left 1 Occurrences starting 08/22/2023 until 09/20/2024 [facility] Work Phone: Comment on above: 1 Occurrences starti ng 08/22/2023 until 09/20/2024 [facility] Immunizations Immunization Date Immunization Notes Care Provider Fa [facility] 08-22-2023 tetanus and diphther ia toxoids, adsorbed, preservative free, for adult use (2 Lf of tetanus toxoid and 2 Lf of diphtheria toxoid) Dr. Derek Sanchez MD Work Phone: [facility] 08-22-2023 tetanus and diphther ia toxoids, adsorbed, preservative free, for adult use (5 Lf of tetanus toxoid and 2 Lf of diphtheria toxoid) Ila Canales MD Work Phone: [facility] 08-22-2023 TD(adult) unspecifie d formulation Ila Canales MD Work Phone: [facility] Work Phone: 08-19-2021 Covid (Moderna) Dr. Derek brown MD Work Phone: [facility] 02-02-2021 Covid (Moderna) Dr. Derek brown MD Work Phone: [facility] 02-28-2019 influenza, injectabl e, quadrivalent, preservative free [facility] 02-28-2019 influenza virus vacc ine, unspecified formulation Ila Canales MD Work Phone: [facility] 03-06-2018 influenza, injectabl e, quadrivalent, preservative free Ct (I-Stat) Work Phone: [facility] 03-06-2018 influenza virus vacc ine, unspecified formulation Aminah Yo PA-C Work Phone: [facility] 01-23-2018 measles, mumps and rubella virus vaccine Ct (I-Stat) Work Phone: [facility] 06-17-2011 pneumococcal polysaccharide vaccine, [address] (I-Stat) Work Phone: [facility] 07-12-2010 tetanus toxoid, redu betty diphtheria toxoid, and acellular pertussis vaccine, adsorbed Ct (I-Stat) Work Phone: [facility] 05-12-2009 novel influenza-H1N1 -09, preservative-free, injectable Ct (I-Stat) Work Phone: [facility] Payers Date Payer Category Payer Unknown [id number] 2024 Medicaid [id number] 2024 Self-pay [id number] 2024 Private Health Insurance [facility] [id number] 2024 Unknown [id number] 2021 Unknown MMO MMO [employer] [id number] 2021-Present [phone] [address] [place] [address] PPO [id number] 2021 Unknown [id number] 2021 Unknown [id number] 2013 Medicaid [facility] [id number] 2013-Present [phone] [address] [place] [address] Medicaid [id number] 2013 Medicaid [id number] Unknown [id number] Unknown [id number] Unknown [id number] Unknown [id number] 462 Unknown [id number] 462 Unknown [id number] 462 Unknown [id number] 462 Unknown [id number] 462 Unknown [id number] 462 Unknown [id number] 462 Social History Date Type Detail Facility Start: 08-27-2014 End: 07-02-2024 Tobacco smoking status NHIS Ex-smoker [facility] Start: 05-05-2004 End: 05-05-2014 History of tobacco use Current smoker [facility] Start: 05-05-2004 End: 05-05-2014 History of tobacco use Cigarette Smoker [facility] Start: 08-27-2014 End: 06-13-2023 Cigarettes smoked current (pack per day) - Reported 0.5 [facility] Work Phone: Start: 08-27-2014 End: 07-02-2024 Tobacco use and exposure Smokeless tobacco non-user [facility] Start: 11-05-2021 End: 07-02-2024 Alcohol intake Current drinker of alcohol (finding) [facility] Start: 07-01-2011 History SDOH Alcohol Comment socially, rare [facility] Start: 1980 Sex Assigned At Not on file [facility] [place] Start: 10-26-2021 End: 11-05-2021 Exposure to SARS-CoV-2 (event) Not sure [facility] Start: 04-02-2023 End: 06-13-2023 Tobacco use panel [facility] Work Phone: Start: 05-06-2012 Adult Depression Screening Assessment 5 [facility] Work Phone: Start: 05-30-2023 [facility] Start: 01-31-2019 With Family [facility] Start: 1980 Sex Assigned At Female [facility] Start: 03-13-2025 Tobacco [facility] daily (finding) [facility] Medical Equipment Procedure Code Equipment Code Equipment Original Text Equipment Identifier Dates Dev Cncptv Essur e Perm - [id number] Start: 07-12-2011 Comment on above: Description: ESSURE CONTRACEPTIVE DEVICE Goals Date Patient Goal Desired Activity /State Personal health goal Functional Status Date Assessment Result Facility 12-09-2014 Are you deaf, or do you have serious difficulty hearing No 12/09/2014 12:47 PM Elisa Balderas Ma [facility] 12-09-2014 Are you blind, or do you have serious difficulty seeing, even when wearing glasses No 12/09/2014 12:47 PM Elisa Balderas Ma [facility] 12-09-2014 Do you have serious difficulty walking or climbing stairs No 12/09/2014 12:47 PM Elisa Balderas Ma [facility] 12-09-2014 Do you have difficul ty dressing or bathing No 12/09/2014 12:47 PM Elisa Balderas Ma [facility] 12-09-2014 Because of a physica l, mental, or emotional condition, do you have difficulty doing errands alone such as visiting a physician's office or shopping No 12/09/2014 12:47 PM Elisa Balderas Ma [facility] Mental Status Date Assessment Result Facility 12-09-2014 Because of a physica l, mental, or emotional condition, do you have serious difficulty concentrating, remembering, or making decisions No 12/09/2014 12:47 PM EDT Elisa Egan Ma [facility] Clinical Notes 11-15-2021 to 03-27-2025 Telephone Encounter - Letty Verma LPN - 01/24/2025 9:58 AM EDTTelephone Encounter - Letty Verma LPN - 01/24/2025 9:58 AM EDTTelephone Encounter - Noni Adorno - 11/22/2024 11:57 AM EDT Note Date & Type Note Facility 03-27-2025 Note [facility] Medical Records Department [address] [place] [address] History Physical Exam 03/27/25 0806 MR#: [id number] Acct: [id number] Name: ABDOUL FAITH Rep #: [id number] : 1980 44 From: Edilma Ritter MD PCP: Dr. Rj Canales MD Status:[facility] Location: [place] [address] History and Physical Date of Admission: 03/27/25 Date of Service: 03/18/25 MR#: [id number] Acct: [id number] Name: ABDOUL FAITH Rep #: [id number] : 1980 Provider: Dr. Edilma Ritter MD Age/Sex: 44/F Location: [facility] Status: Signed Intake Vital Signs 03/13/2509:25 03/18/2508:30 Height 5 ft 5 in 5 ft 5 in Weight: 174 lb BMI 28.9 BP 114/89 H Pulse 99 Intake Visit Reasons: ER F/U Stones Chief Complaint: ER follow up for 6mm kidney stone Director Clinical Research Required: No Accompanied by: self Is patient in pain?: Yes (aching kidney stone pain ) Pain scale (1-10): 7 Allergies amoxicillin (From Augmentin) Adverse Reaction (Mild, Verified 03/13/25 09:24) Abd cramps/diarrhea clavulanic acid (From Augmentin) Adverse Reaction (Mild, Verified 03/13/25 09:24) Abd cramps/diarrhea Medications ???Medication ???Instructions ???Recorded ???Confirmed ???Type albuterol sulfate 90 mcg/actuation 1 - 2 puff inhalation Q6H PRN PRN 06/17/16 5 History aerosol inhaler (Ventolin HFA) Sob /Or Wheezing famotidine 20 mg tablet (Pepcid) 20 mg PO QHS 07/23/24 03/18/25 History bupropion HCl 150 mg tablet,12 hr 150 mg PO BID 08/21/24 03/18/25 History sustained-release fluticasone 100 mcg-salmeterol 50 1 inh inhalation DAILY 10/07/24 03/18/25 History mcg/dose blistr powdr for inhalation (Advair Diskus) ibuprofen 600 mg tablet 600 mg PO Q6H PRN PRN pain #20 10/07/24 Rx TABLETS cephalexin 500 mg capsule 500 mg PO Q6 7 days #28 CAPSULES 03/13/25 03/18/25 Rx fluconazole 200 mg tablet 200 mg PO DAILY #1 TAB 03/13/25 03/18/25 Rx acetaminophen 325 mg tablet 325 mg PO ONCE PRN 03/18/25 03/18/25 History (Tylenol) Nurse's Note: 6mm kidney [...] Results POC Urinalysis w/Micro Office Urine Color ??? Last Edit by Jeannie Suggs on 03/18/25 08:34 Office Urine Clarity ??? Last Edit by Jeannie Suggs on 03/18/25 08:34 Office Urine Glucose Negative Last Edit by Jeannie Suggs on 03/18/25 08:34 Office Urine Ketones Negative Last Edit by Jeannie Suggs on 03/18/25 08:34 Office Urine Bilirubin Negative Last Edit by Jeannie Suggs on 03/18/25 08:34 Office Urine Urobilinogen 0.2 mg/dL Last Edit by Jeannie Suggs on 03/18/25 08:34 Off Ur Spec [place] 1.015 Last Edit by Jeannie Suggs on 03/18/25 08:34 Office Urine pH 6 Last Edit by Jeannie (more content not included)... [facility] 03-13-2025 Discharge summary [facility] 03-13-2025 Radiology Diagnostic study note [facility] Imaging Services [address] [place], [place] [id number] Abdomen/Pelvis W IV Cont ONLY MR#: [id number] Acct: [id number] Name: ABDOUL FAITH MONROE Rep #: [id number] : 1980 F 44 From: Cinthia Su MD PCP: Dr. Rj Canales MD Status: REG ER Study:Abdomen/Pelvis W IV Cont ONLY Date of E xam: 03/13/25 Exam# [id number] Ordering Dr: Richard Sanchez MD PROCEDURE: ABDOMEN/PELVIS [...] right kidney. Normal appendix Cholelithiasis Reading Location: [facility] CC: Dr. Derek Sanchez MD; Dr. Rj Canales MD ~ Java Front End Web Developer: Signed [facility] 03-12-2025 Note HNO ID: [id number] Author: INDY QUIGLEY PA Service: ? Author Type: Physician Equipment Maintenance Superintendent Type: Progress Notes Filed: 03/12/2025 10:01 Note Text: [facility] Marshall Faith is a 44 year old [...] 2011 UNSPECIFIED ORAL SURGERY PROCEDURE, BY REPORT [place] teeth ALLERGIES Augmentin [Amoxicillin-Pot Clavulanate] and Seasonal [...] care if symptoms worsen. and Recording using [email or web address] software for draft documentation of the visit was discussed with the patient/authorized architectural representative; all questions welcomed and answered. Patient/authorized architectural representative agreed to proceed Diagnosis and treatment [...] Social History To (more content not included)... [facility] 01-24-2025 Telephone encounter Note Last Office Visit Date: 07/02/2024 Last Distance Health Visit: Visit date not found Has the patient had an appointment at [facility] in the past year, or do they have an upcoming appointment scheduled at [facility]? YES- Continue with refill request. Future Appointment: 01/31/2025 Pharmacy faxed requesting the following refill Refill(s) Requested: Requested Prescriptions Pending Prescriptions Disp Refills albuterol HFA (PROVENTIL HFA) 90 mcg/actuation inhaler 8 g 2 Sig: Inhale 1-2 puffs as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: Sexual Activity: Yes; Male; essure- ablation Contraception: Other PAST MEDICAL HISTORY Diagnosis Date Human papillomavirus in conditions classified elsewhere and of unspecified site Menorrhagia resolved with ablation Unspecified asthma(493.90) PAST SURGICAL HISTORY Procedure Laterality Date ESSURE 2012 OFFICE ENDOMETRIAL ABLATION 2011 UNSPECIFIED ORAL SURGERY PROCEDURE, BY REPORT [place] teeth FAMILY HISTORY Problem Relation Age of [...] external genitalia normal, normal [place]'s glands, urethra, [place]'s glands, no vulvar lesions, no cervical lesions, [...] - THYROID STIMULATING HORMONE - CONSULT TO [facility] WEIGHT MANAGEMENT PROGRAM - Eat primarily whole [...] 4 - Moderate documented in this encounter [facility] 08-22-2023 History of Present illness [...] for Influenza Vaccine Due for Covid-19 Vaccine ( season) Due for Pap Testing Due for [...] 2011 UNSPECIFIED ORAL SURGERY PROCEDURE, BY REPORT [place] ALLERGIES Augmentin [Amoxicillin-Pot Clavulanate] and Seasonal [...] VACCINE, AGE 7+ YR, 5 LF TETANUS ([facility]) Requested Prescriptions Signed Prescriptions Disp Refills [...] 2023 4:33 PM documented in this encounter [facility] 08-10-2023 Miscellaneous Notes August 10, 2023 PID: [id number] Abdoul Faith [address] [place], [place] [address] Dear Ms. Faith, We are pleased to [...] report will be kept on file at [facility] as part of your permanent medical record and are available for your continuing care. Thank you for allowing us to help in meeting your health care needs. Sincerely, Dr. Flores Interpreting Radiologist [facility] (Normal over 40) documented in this encounter [facility] 08-09-2023 History of Present illness [...] PATIENT PRESENTS WITH AN IMPLANTABLE OR ATTACHED TRAY CHECKER: No RADIOLOGY DEPARTMENT: Mammography PERIPHERAL IV DATA: Not applicable SIGNED BY: Abdoul Garcia [employer] Shauna August 09, 2023 1:39 PM documented in this encounter [facility] 05-22-2023 History of Present illness [...] 2023 10:16 AM documented in this encounter [facility] 05-20-2023 History of Present illness [...] César Fernandez MD documented in this encounter [facility] 05-15-2023 Miscellaneous Notes Called patient. Verified name and date of . Scheduled appointment. Jennifer Doe LPN Images from the original note were not included. Dilip Loving PA-C [facility] Urology Pool 3 days ago Not seen in over a year, need visit and urine testing documented in this encounter [facility] 05-08-2023 Miscellaneous Notes Pharmacy verified in [facility] Patient has been identified by name and [...] advise. Reina Null documented in this encounter [facility] 04-12-2023 Miscellaneous Notes Pharmacy verified in [facility] Patient has been identified by name and [...] Michelle Brown LPN documented in this encounter [facility] 04-02-2023 History of Present illness Narrative This note was created using 360imagingriter. Subjective Abdoul Faith is a 42 year [...] No diarrhea or vomiting. She used multiple qndu-hkh-bastnil cough and cold medicines without relief. She [...] 2012 UNSPECIFIED ORAL SURGERY PROCEDURE, BY REPORT [place] FAMILY HISTORY Problem Relation Age of [...] Aminah Yo PA-C documented in this encounter [facility] 10-13-2022 Miscellaneous Notes Patient phones requesting refills as follows: LAST REFILL 07/25/22 LAST OV 07/25/22 Requested Prescriptions Pending Prescriptions Disp Refills albuterol HFA (VENTOLIN HFA) 90 mcg/actuation inhaler 18 g 0 Sig: Inhale 2 Puffs as instructed every 4 hours as needed for wheezing/shortness of breath. Please review and advise. Chloe Waddell LPN documented in this encounter [facility] 09-21-2022 Miscellaneous Notes Spoke with [...] blood in urine. documented in this encounter [facility] 07-25-2022 History of Present illness [...] 2012 UNSPECIFIED ORAL SURGERY PROCEDURE, BY REPORT [place] FAMILY HISTORY Problem Relation Age of [...] 2022 5:16 PM documented in this encounter [facility] 06-29-2022 Miscellaneous Notes Third attempt to reach; called patient at [phone]. Left message on voicemail for patient to return call or check MyChart for message from provider. No contact made after 3 attempts. MyChart message sent. Called patient at [phone], left message on voicemail for patient to [...] Ginny Gongora APRN.SIDNEY documented in this encounter [facility] 06-25-2022 Miscellaneous Notes June 27, 2022 PID: [id number] Abdoul Faith [address] [place] [address] Dear Ms. Faith, Your recent breast imaging [...] who ordered/prescribed your screening mammogram: Please call [phone] or [phone] to schedule an appointment for your additional [...] and reports are kept on file at [facility] as part of your permanent medical record, and are available for your continuing care. Thank you for allowing us to help in meeting your health care needs. Sincerely, Dr. Escobedo Interpreting Radiologist [facility] (Additional imaging) documented in this encounter [facility] 11-15-2021 History of Present illness [...] 2021 3:00 PM documented in this encounter [facility] Discharge summary Note Date/Time March 13, 2025 12:58pm [facility] Medical Records Department [address] [place] [address] Emergency Department Summary 03/13/25 MR#: [id number] Acct: [id number] Name: ABDOUL FAITH Rep #:[id number] : [...] 71.4 H Lymph % (Auto) 17.5 L [place] % (Auto) 6.3 Eos % (Auto) 4.0 [...] Sl. Cloudy Urine pH 6.0 Ur Specific [place] 1.020 Urine Protein 30 H Urine Glucose [...] right kidney. Normal appendix Cholelithiasis Reading Location: [facility] Discharge Plan Triage Chief Complaint: Abd Pain [...] Dr. Edilma Ritter of urology. Print Language: Cymro Disposition Disposition: Home, Self Care What to do if you have Problems For any increased pain, shortness of breath, bleeding, nausea or vomiting, chestpain, or any unexpected problems, contact your Primary Care Provider. Call [facility] ([phone]) or report to the closest Emergency Room. Call 911 if necessary. 03/13/25 1715 <Electronically signed by Derek Sanchez MD> Cosigner Signature (if applicable): CC: Dr. Rj Canales MD ~ Signed [facility] Work Phone: Evaluation note* Diagnosis Recurrent UTI (urinary tract infection) Urinary tract infection, site not specified [facility] Diagnosis Encounter for screening mammogram for breast cancer [facility] Diagnosis Inconclusive mammogram- Primary [facility] Diagnosis Well adult exam- Primary Routine general medical examination at a health care facility Mild persistent asthma without complication Unspecified asthma Vaginal bacteriosis Vaginitis and vulvovaginitis, unspecified Atypical chest pain Other chest pain Adjustment disorder with mixed anxiety and depressed mood Screening for lipid disorders Obesity, Class I, BMI 30-34.9 Obesity, unspecified [facility] Diagnosis Mild persistent asthma without complication Unspecified asthma [facility] Diagnosis LRTI (lower respiratory tract infection)- Primary Other diseases of respiratory system, not elsewhere classified [facility] Diagnosis Mild persistent asthma without complication Unspecified asthma [facility] Diagnosis Recurrent UTI (urinary tract infection) Urinary tract infection, site not specified [facility]* Diagnosis Subacute cough- Primary Cough Hemoptysis Hemoptysis, unspecified Hoarse voice quality Dysphonia Asthma with acute exacerbation, unspecified asthma severity, unspecified whether persistent Acute non-recurrent sinusitis, unspecified location Mild persistent asthma without complication Unspecified asthma [facility] noteNo assessment information availableWSouthwest General [facility] Work Phone: Evaluation note* Diagnosis Encounter for screening mammogram for breast cancer [facility] Diagnosis Well adult exam- Primary Routine general medical examination at a health care facility Mild persistent asthma without complication Unspecified asthma Neck pain on left side Cervicalgia Cervicogenic headache Headache Palpitations Atypical chest pain Other chest pain Systolic click Undiagnosed cardiac murmurs Chronic foot pain, left Tetanus-diphtheria (Td) vaccination Need for prophylactic vaccination with tetanus-diphtheria (Td) [facility] Diagnosis Encounter for gynecological [...] serious comorbidity present [facility] Diagnosis Palpitations- Primary Atypical chest pain Other chest pain Systolic click Undiagnosed cardiac murmurs FINLEY (dyspnea on exertion) Other dyspnea and respiratory abnormality Daytime hypersomnolence Hypersomnia, unspecified [facility]* Diagnosis Gastroesophageal reflux disease, unspecified whether [...] serious comorbidity present documented in this encounter [facility] [facility] Diagnosis Gastroesophageal reflux disease, unspecified whether esophagitis present- Primary [facility] this encounter [facility] Diagnosis Gastroesophageal reflux disease, unspecified whether esophagitis present [facility] this encounter [facility] Diagnosis Mild persistent asthma without complication Unspecified asthma [facility]* Diagnosis Subacute cough Cough Hemoptysis Hemoptysis, unspecified documented in this encounter [facility]* Diagnosis Depression, unspecified depression type- Primary Mild persistent asthma without complication Unspecified asthma Obesity (BMI 30.0-34.9) Obesity, unspecified Palpitations Lightheadedness Dizziness and giddiness documented in this encounter [facility]* Diagnosis Mild persistent asthma without complication Unspecified asthma documented in this encounter [facility]* Diagnosis Mild persistent asthma without complication- Primary Unspecified asthma documented in this encounter [facility]* Diagnosis Depression, unspecified depression type documented in this encounter [facility]* Diagnosis Mild persistent asthma without complication (HCC) Unspecified asthma documented in this encounter [facility] Discharge instructionsAdditional Instructions You have a left [...] and follow-up with Dr. Edilma Ritter of urology.[facility] Work Phone: Reason for referral (narrative)* Diagnostic Procedure Only (Routine) - Pending Review Specialty Diagnoses / Procedures Referred By Renzo t Referred To Contact [facility] Diagnoses Encounter for screening mammogram for breast cancer Procedures PERCY SCREENING SCREENING MAMMOGRAPHY BI 2-VIEW BREAST INC Ila He MD [address] [place] [address] [place] [address] [facility] [address] [place] [phone] Referral ID Status Reason Start Date Expiration Date Visits Requested Visits Authorized [id number] Pending Review Auto-Generat ed Referral 12/01/2021 12/31/2022 1 1 [facility] for referral (narrative)* Diagnostic Procedure Only (Routine) - Authorized Specialty Diagnoses / Procedures Referred By Contac t Referred To Contact [facility] Diagnoses Inconclusive mammogram Procedures US BREAST LTD LT US BREAST UNI REAL TIME WITH IMAGE LIMITED Ginny Gongora APRN.CNP [address] [place] [address] [facility] [address] [place] [address] Referral ID Status Reason Start Date Expiration Date Visits Requested Visits Authorized [id number] Authorized Auto-Generat ed Referral 06/27/2022 07/27/2023 1 1 * Diagnostic Procedure Only (Routine) - Authorized Specialty Diagnoses / Procedures [facility] To [facility] Diagnoses Inconclusive mammogram Procedures PERCY DIAGNOSTIC LT DIAGNOSTIC MAMMOGRAPHY COMPUTER-AIDED DETCJ UNI Ginny Gongora APRN.CNP [address] [place] [address] [facility] [address] [place] [address] Referral ID Status Reason Start Date Expiration Date Visits Requested Visits Authorized [id number] Authorized Auto-Generat ed Referral 06/27/2022 07/27/2023 1 1 [facility] for referral (narrative)* Outpatient Procedure (Routine) - Closed Specialty Diagnoses / Procedures [facility] Diagnoses Atypical chest pain Procedures ECG COMPLETE ECG ROUTINE ECG W/LEAST 12 LDS W/I&R Ila Canales MD [address] [facility] [place] [address] [facility] [address] [place] [id number] Referral ID Status Reason Start Date Expiration Date V isits Requested Visits Authorized [id number] Closed Auto-Generate d Referral 07/25/2022 07/25/2023 1 1 [facility] for referral (narrative)* Diagnostic Procedure Only (Routine) - Authorized Specialty Diagnoses / Procedures Referred By Renzo t Referred To Contact [facility] Diagnoses Encounter for screening mammogram for breast cancer Procedures PERCY SCREENING SCREENING MAMMOGRAPHY BI 2-VIEW BREAST INC CAD Javon, Ila Olivia MD [address] [place] [address] [place] [address] [facility] [address] [place] [address] Referral ID Status Reason Start Date Expiration Date Visits Requested Visits Authorized [id number] Authorized Auto-Generat ed Referral 08/02/2023 08/31/2024 1 1 [facility] for referral (narrative)* Outpatient Procedure (Routine) - New Request Specialty Diagnoses / Procedures Referred By Renzo shrestha Referred To Contact [facility] Diagnoses Palpitations Atypical chest pain Systolic click Daytime hypersomnolence Procedures EXERCISE STRESS ECG (WITHOUT IMAGING) Juan Manuel Gayle DO [address] [place] [address] [address] Referral ID Status Reason Start Date Expiration Date Visits Requested Visits Authorized [id number] New Request Auto-Generat ed Referral 12/14/2023 12/13/2024 1 1 * Outpatient Procedure (Routine) - New Request Specialty Diagnoses / Procedures Referred By Renzo shrestha Referred To Contact [facility] Diagnoses Palpitations Atypical chest pain Systolic click Daytime hypersomnolence Procedures ECHO ECHO TTHRC R-T 2D W/WOM-MODE COMPL SPEC&COLR D Juan Manuel Gayle DO [address] [place] [address] [address] Referral ID Status Reason Start Date Expiration Date Visits Requested Visits Authorized [id number] New Request Auto-Generat ed Referral 12/14/2023 12/13/2024 1 1 [facility])No reason for referral information availableWSouthwest General Health [facility] Work Phone: Reason for visit Narrative* Diagnostic Procedure Only (Routine) - Closed Specialty Diagnoses / Procedures Referred By Renzo shrestha Referred To Contact [facility] Diagnoses Encounter for screening mammogram for breast cancer Procedures PERCY SCREENING SCREENING MAMMOGRAPHY BI 2-VIEW BREAST INC Ila He MD [address] [facility] [place] [address] [facility] [address] [place] [address] Referral ID Status Reason Start Date Expiration Date V isits Requested Visits Authorized [id number] Closed Auto-Generate d Referral 08/02/2023 08/31/2024 1 1 [facility] Summary Purpose Family History No Family History Records Found Relationship Condition Age at Onset Recorded Date/T rodney father Asthma Unknown Obesity Unknown grandfather Chronic obstructive pulmonary disease Unk nown son Asthma Unknown mother Obesity Unknown Advance Directives No Advanced Directives Records Found Advance Directive Response Recorded Date/ Time Living Will No May 30 023 9:09am Power of Jig Worker No May 30, 2023 9:09am Advance Directive Response Recorded Date/ Time Do you have a Healthcare Power of Jig Worker? No March 13, 2025 9:31am Reason for Referral Specialty Diagnoses / Procedures Referred By Renzo shrestha Referred To Contact CT IMAGING Diagnoses Recurrent UTI (urinary tract infection) Procedures CT FLANK WO IVCON CT ABD & PELVIS W/O CONTRAST Dilip Loving PA-C [address] [place] [address] Ct [facility] Referral ID Status Reason Start Date Expiration Date V isits Requested Visits Authorized [id number] Closed Auto-Generate d Referral 11/05/2021 12/20/2021 1 1 Specialty Diagnoses / Procedures Referred By Renzo shrestha Referred To Contact Diagnoses Mild persistent asthma without complication Ginny Gongora, LALA.NET PROGRAMMER [address] [place] [address] Referral ID Status Reason Start Date Expiration Date V isits Requested Visits Authorized [id number] Pending Review 1 1 Specialty Diagnoses / Procedures Referred By Contac t Referred To Contact Diagnoses Mild persistent asthma without complication César Fernandez MD [address] [place] [address] Referral ID Status Reason Start Date Expiration Date Visits Re quested Visits Authorized [id number] Closed 1 1 Specialty Diagnoses / Procedures Referred By Contac t Referred To Contact Neurology Diagnoses Neck pain on left side Cervicogenic headache Procedures CONSULT TO NEUROLOGY OFFICE/OUTPATIENT [facility] 60 MINUTES Ila Canales MD [address] [facility] [place] [address] Referral ID Status Reason Start Date Expiration Date Visits Requested Visits Authorized [id number] Authorized PCP Requested Referral 08/22/2023 08/21/2024 1 1 Specialty Diagnoses / Procedures Referred By Contac t Referred To Contact Cardiology Diagnoses Palpitations Atypical chest pain Systolic click Procedures CONSULT TO CARDIOLOGY OFFICE/OUTPATIENT [facility] 60 MINUTES Ila Canales MD [address] [facility] [place] [address] Referral ID Status Reason Start Date Expiration Date Visits Requested Visits Authorized [id number] Authorized PCP Requested Referral 08/22/2023 08/21/2024 1 1 Specialty Diagnoses / Procedures Referred By Contac t Referred To Contact XR IMAGING Diagnoses Chronic foot pain, left Procedures XR FOOT GENERAL 3V AP/LAT/OBL LEFT RADEX FOOT COMPLETE MINIMUM 3 VIEWS Ila Canales MD [address] [facility] [place] [address] [place] [address] Referral ID Status Reason Start Date Expiration Date Visits Requested Visits Authorized [id number] Pending Review Auto-Generat ed Referral 08/22/2023 09/20/2024 1 1 Specialty Diagnoses / Procedures Referred By Contac t Referred To Contact Podiatry Diagnoses Chronic foot pain, left Procedures CONSULT TO PODIATRY OFFICE/OUTPATIENT [facility] 60 MINUTES Ila Canales MD [address] [facility] [place] [address] Referral ID Status Reason Start Date Expiration Date Visits Requested Visits Authorized [id number] Authorized PCP Requested Referral 08/22/2023 08/21/2024 1 1 Specialty Diagnoses / Procedures Referred By Contac t Referred To Contact CCTV TECHNICIAN Diagnoses Class 1 obesity with body mass index (BMI) of 31.0 to 31.9 in adult, unspecified obesity type, unspecified whether serious comorbidity present Procedures CONSULT TO [facility] WEIGHT MANAGEMENT PROGRAM OFFICE/OUTPATIENT [facility] 60 MINUTES Nancy Viera APRN.NET PROGRAMMER [address] [place] [address] Nancy Viera APRN.NET PROGRAMMER [address] [place] [address] Referral ID Status Reason Start Date Expiration Date Visits Requested Visits Authorized [id number] Authorized PCP Requested Referral Auto-Generate d Referral 09/15/2023 09/14/2024 1 1 Specialty Diagnoses / Procedures Referred By Antelmoac t Referred To Contact [facility] Diagnoses Encounter for screening mammogram for breast cancer Procedures PERCY SCREENING SCREENING MAMMOGRAPHY BI 2-VIEW BREAST INC CAD Nancy Viera APRN.NET PROGRAMMER [address] [place] [address] [facility] [address] [place] [address] Referral ID Status Reason Start Date Expiration Date Visits Requested Visits Authorized [id number] Pending Review Auto-Generat ed Referral 08/08/2024 10/14/2024 1 1 Specialty Diagnoses / Procedures Referred By Contac t Referred To Contact Cardiology Diagnoses Palpitations Lightheadedness Procedures CONSULT TO CARDIOLOGY OFFICE/OUTPATIENT [facility] 60 MINUTES Benigno Laguerre, DO 1 [facility] [address] [place] [address] Referral ID Status Reason Start Date Expiration Date Visits Requested Visits Authorized [id number] Pending Review PCP Requested Referral 07/02/2024 07/02/2025 1 1 Specialty Diagnoses / Procedures Referred By Contac t Referred To Contact [facility] Diagnoses Mild persistent asthma without complication Procedures SPIROMETRY - BASELINE AND POST DILATOR BRNCDILAT RSPSE SPMTRY PRE&POST-BRNCDILAT ADMBenigno Oconnor, DO 1 [facility] [address] [place] [address] [facility] [address] [place] [address] Referral ID Status Reason Start Date Expiration Date Visits Requested Visits Authorized [id number] New Request Auto-Generat ed Referral 07/02/2024 08/01/2025 1 1 Chief Complaint and Reason for Visit Chief Complaint SHORTNESS OF BREATH Chief Complaint Admit Date pelvic pain March 13, 2025 9: 24am Additional Source Comments INFORMATION SOURCE (unrecogn ized section and content) DATE CREATED AUTHOR 12/23/2019 [facility] DATE CREATED AUTHOR AUTHOR'S ORGANIZ ATION 01/12/2024 [facility] DATE CREATED AUTHOR AUTHOR'S ORGANIZ ATION 11/25/2024 [facility] DATE CREATED AUTHOR AUTHOR'S ORGANIZ ATION 03/29/2025 [facility] DATE CREATED AUTHOR AUTHOR'S ORGANIZ ATION 03/30/2025 [facility] Source Comments (unrecognize d section and content) In the event this informatio n is protected by the Federal Confidentiality of Alcohol and Drug Abuse Patient Records regulations: The Federal rules restrict any use of the information to criminally investigate or prosecute any alcohol or drug abuse patient.[facility] CenterIn the event this information is protected by the Federal Confidentiality of Alcohol and Drug Abuse Patient Records regulations: The Federal rules restrict any use of the information to criminally investigate or prosecute any alcohol or drug abuse patient.[facility] CenterIn the event this information is protected by the Federal Confidentiality of Alcohol and Drug Abuse Patient Records regulations: The Federal rules restrict any use of the information to criminally investigate or prosecute any alcohol or drug abuse patient.[facility] CenterIn the event this information is protected by the Federal Confidentiality of Alcohol and Drug Abuse Patient Records regulations: The Federal rules restrict any use of the information to criminally investigate or prosecute any alcohol or drug abuse patient.[facility] CenterIn the event this information is protected by the Federal Confidentiality of Alcohol and Drug Abuse Patient Records regulations: The Federal rules restrict any use of the information to criminally investigate or prosecute any alcohol or drug abuse patient.[facility] CenterIn the event this information is protected by the Federal Confidentiality of Alcohol and Drug Abuse Patient Records regulations: The Federal rules restrict any use of the information to criminally investigate or prosecute any alcohol or drug abuse patient.[facility] CenterIn the event this information is protected by the Federal Confidentiality of Alcohol and Drug Abuse Patient Records regulations: The Federal rules restrict any use of the information to criminally investigate or prosecute any alcohol or drug abuse patient.[facility] CenterIn the event this information is protected by the Federal Confidentiality of Alcohol and Drug Abuse Patient Records regulations: The Federal rules restrict any use of the information to criminally investigate or prosecute any alcohol or drug abuse patient.[facility] CenterIn the event this information is protected by the Federal Confidentiality of Alcohol and Drug Abuse Patient Records regulations: The Federal rules restrict any use of the information to criminally investigate or prosecute any alcohol or drug abuse patient.[facility] CenterIn the event this information is protected by the Federal Confidentiality of Alcohol and Drug Abuse Patient Records regulations: The Federal rules restrict any use of the information to criminally investigate or prosecute any alcohol or drug abuse patient.[facility] CenterIn the event this information is protected by the Federal Confidentiality of Alcohol and Drug Abuse Patient Records regulations: The Federal rules restrict any use of the information to criminally investigate or prosecute any alcohol or drug abuse patient.[facility] CenterIn the event this information is protected by the Federal Confidentiality of Alcohol and Drug Abuse Patient Records regulations: The Federal rules restrict any use of the information to criminally investigate or prosecute any alcohol or drug abuse patient.[facility] CenterIn the event this information is protected by the Federal Confidentiality of Alcohol and Drug Abuse Patient Records regulations: The Federal rules restrict any use of the information to criminally investigate or prosecute any alcohol or drug abuse patient.[facility] CenterIn the event this information is protected by the Federal Confidentiality of Alcohol and Drug Abuse Patient Records regulations: The Federal rules restrict any use of the information to criminally investigate or prosecute any alcohol or drug abuse patient.[facility] CenterIn the event this information is protected by the Federal Confidentiality of Alcohol and Drug Abuse Patient Records regulations: The Federal rules restrict any use of the information to criminally investigate or prosecute any alcohol or drug abuse patient.[facility] CenterIn the event this information is protected by the Federal Confidentiality of Alcohol and Drug Abuse Patient Records regulations: The Federal rules restrict any use of the information to criminally investigate or prosecute any alcohol or drug abuse patient.[facility] CenterIn the event this information is protected by the Federal Confidentiality of Alcohol and Drug Abuse Patient Records regulations: The Federal rules restrict any use of the information to criminally investigate or prosecute any alcohol or drug abuse patient.[facility] CenterIn the event this information is protected by the Federal Confidentiality of Alcohol and Drug Abuse Patient Records regulations: The Federal rules restrict any use of the information to criminally investigate or prosecute any alcohol or drug abuse patient.[facility] CenterIn the event this information is protected by the Federal Confidentiality of Alcohol and Drug Abuse Patient Records regulations: The Federal rules restrict any use of the information to criminally investigate or prosecute any alcohol or drug abuse patient.[facility] CenterIn the event this information is protected by the Federal Confidentiality of Alcohol and Drug Abuse Patient Records regulations: The Federal rules restrict any use of the information to criminally investigate or prosecute any alcohol or drug abuse patient.[facility] CenterIn the event this information is protected by the Federal Confidentiality of Alcohol and Drug Abuse Patient Records regulations: The Federal rules restrict any use of the information to criminally investigate or prosecute any alcohol or drug abuse patient.[facility] CenterIn the event this information is protected by the Federal Confidentiality of Alcohol and Drug Abuse Patient Records regulations: The Federal rules restrict any use of the information to criminally investigate or prosecute any alcohol or drug abuse patient.[facility] CenterIn the event this information is protected by the Federal Confidentiality of Alcohol and Drug Abuse Patient Records regulations: The Federal rules restrict any use of the information to criminally investigate or prosecute any alcohol or drug abuse patient.[facility] CenterIn the event this information is protected by the Federal Confidentiality of Alcohol and Drug Abuse Patient Records regulations: The Federal rules restrict any use of the information to criminally investigate or prosecute any alcohol or drug abuse patient.[facility] CenterIn the event this information is protected by the Federal Confidentiality of Alcohol and Drug Abuse Patient Records regulations: The Federal rules restrict any use of the information to criminally investigate or prosecute any alcohol or drug abuse patient.[facility] CenterIn the event this information is protected by the Federal Confidentiality of Alcohol and Drug Abuse Patient Records regulations: The Federal rules restrict any use of the information to criminally investigate or prosecute any alcohol or drug abuse patient.[facility] CenterIn the event this information is protected by the Federal Confidentiality of Alcohol and Drug Abuse Patient Records regulations: The Federal rules restrict any use of the information to criminally investigate or prosecute any alcohol or drug abuse patient.[facility] CenterIn the event this information is protected by the Federal Confidentiality of Alcohol and Drug Abuse Patient Records regulations: The Federal rules restrict any use of the information to criminally investigate or prosecute any alcohol or drug abuse patient.[facility] CenterIn the event this information is protected by the Federal Confidentiality of Alcohol and Drug Abuse Patient Records regulations: The Federal rules restrict any use of the information to criminally investigate or prosecute any alcohol or drug abuse patient.[facility] CenterIn the event this information is protected by the Federal Confidentiality of Alcohol and Drug Abuse Patient Records regulations: The Federal rules restrict any use of the information to criminally investigate or prosecute any alcohol or drug abuse patient.[facility] CenterIn the event this information is protected by the Federal Confidentiality of Alcohol and Drug Abuse Patient Records regulations: The Federal rules restrict any use of the information to criminally investigate or prosecute any alcohol or drug abuse patient.[facility] CenterIn the event this information is protected by the Federal Confidentiality of Alcohol and Drug Abuse Patient Records regulations: The Federal rules restrict any use of the information to criminally investigate or prosecute any alcohol or drug abuse patient.[facility] CenterIn the event this information is protected by the Federal Confidentiality of Alcohol and Drug Abuse Patient Records regulations: The Federal rules restrict any use of the information to criminally investigate or prosecute any alcohol or drug abuse patient.[facility] CenterIn the event this information is protected by the Federal Confidentiality of Alcohol and Drug Abuse Patient Records regulations: The Federal rules restrict any use of the information to criminally investigate or prosecute any alcohol or drug abuse patient.[facility] CenterIn the event this information is protected by the Federal Confidentiality of Alcohol and Drug Abuse Patient Records regulations: The Federal rules restrict any use of the information to criminally investigate or prosecute any alcohol or drug abuse patient.[facility] CenterIn the event this information is protected by the Federal Confidentiality of Alcohol and Drug Abuse Patient Records regulations: The Federal rules restrict any use of the information to criminally investigate or prosecute any alcohol or drug abuse patient.[facility] CenterIn the event this information is protected by the Federal Confidentiality of Alcohol and Drug Abuse Patient Records regulations: The Federal rules restrict any use of the information to criminally investigate or prosecute any alcohol or drug abuse patient.[facility] CenterIn the event this information is protected by the Federal Confidentiality of Alcohol and Drug Abuse Patient Records regulations: The Federal rules restrict any use of the information to criminally investigate or prosecute any alcohol or drug abuse patient.[facility] CenterIn the event this information is protected by the Federal Confidentiality of Alcohol and Drug Abuse Patient Records regulations: The Federal rules restrict any use of the information to criminally investigate or prosecute any alcohol or drug abuse patient.[facility] Reason for Visit (unrecogniz ed section and content) Reason Comments Radiology CT Specialty Diagnoses / Procedures Referred By Contac t Referred To Contact CT IMAGING Diagnoses Recurrent UTI (urinary tract infection) Procedures CT FLANK WO IVCON CT ABD & PELVIS W/O CONTRAST Dilip Loving PA-C [address] [place] [address] Ct Imaging Referral ID Status Reason Start Date Expiration Date V isits Requested Visits Authorized [id number] Closed Auto-Generate d Referral 11/05/2021 12/20/2021 1 [...] MDM 60 MINUTES Ila Canales MD [address] [facility] [place] [address] Referral ID Status Reason Start Date Expiration Date V isits Requested Visits Authorized [id number] Closed PCP Requested Referral 08/22/2023 08/21/2024 1 1 Reason Onset Date Comments Weight Management Weight Management 12/21/2023 Reason Comments Insurance Authorization Reason Comments Reminder Call Reason Comments PSG Check In Reason Comments Received Outside Medical Records [facility] ED 02/09 Reason Comments Establish Care Specialty Diagnoses / Procedures Referred By Renzo t Referred To Contact INTERNAL MEDICINE Diagnoses PHYSICAL PT IS IN NETWORK IN [facility] Procedures PHYSICAL PT IS IN NETWORK IN [employer] [address] [place] [address] Referral ID Status Reason Start Date Expiration Date Visits Requested Visits Authorized [id number] Pending Review OON/Self Pay Override 06/28/2024 10/06/2025 1 1 Reason Comments Referral Information Cardiology Reason Comments Insurance Authorization PA for albuterol inhaler Reason Onset Date Comments Refill Request 08/23/2024 Reason Comments Returning Patient's Call 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 Adva ir Reason Comments Appointment 6 Month Follow up Reason Onset Date Comments Refill Request 01/24/2025 Albuterol inhale r Care Teams (unrecognized sec tion and content) Sales Marketing Manager Relationship Specialty Start Date End Date Ila Canales MD [address] [place], [place] [id number] PCP - General Family Practice 08/27/14 Sales Marketing Manager Relationship Specialty Start Date End Date Ila Canales MD [address] [place] [address] PCP - General Family Practice 08/27/14 Sales Marketing Manager Relationship Specialty Start Date End Date Ila Canales MD [address] [place] [address] PCP - General Family Medicine 08/27/14 Sales Marketing Manager Relationship Specialty Start Date End Date Ila Canales MD [address] [place] [address] PCP - General Family Medicine 08/27/14 Sales Marketing Manager Relationship Specialty Start Date End Date Ila Canales MD [address] [place] [address] PCP - General Family Medicine 08/27/14 Sales Marketing Manager Relationship Specialty Start Date End Date Ila Canales MD [address] [place] [address] PCP - General Family Medicine 08/27/14 Sales Marketing Manager Relationship Specialty Start Date End Date Ila Canales MD [address] [place] [address] PCP - General Family Medicine 08/27/14 Sales Marketing Manager Relationship Specialty Start Date End Date Ila Canales MD [address] [place] [address] PCP - General Family Medicine 08/27/14 Sales Marketing Manager Relationship Specialty Start Date End Date Ila Canales MD [address] [place] [address] PCP - General Family Medicine 08/27/14 Sales Marketing Manager Relationship Specialty Start Date End Date Ila Canales MD [address] [place] [address] PCP - General Family Medicine 08/27/14 Sales Marketing Manager Relationship Specialty Start Date End Date Ila Canales MD [address] [place] [address] PCP - General Family Medicine 08/27/14 Sales Marketing Manager Relationship Specialty Start Date End Date Ila Canales MD [address] [facility], [place] [phone] PCP - General Family Medicine 08/27/14 Team Status: Active Member Role Status Dates Dr. Rj Canales MD Family Provider Active Dr. Rj Canales MD Primary Care Provider Active Team Status: Inactive Member Role Status Dates Dr. Rj Canales MD Primary Care Provider Active Dr. Anju Bermudez MD Referring Provider, Emergency Provider Active Sales Marketing Manager Relationship Specialty Start Date End Date Ila Canales MD [address] [place] [address] PCP - General Family Medicine 08/27/14 Sales Marketing Manager Relationship Specialty Start Date End Date Ila Canales MD [address] [place] [address] PCP - General Family Medicine 08/27/14 Sales Marketing Manager Relationship Specialty Start Date End Date Ila Canales MD [address] [facility], [place] [address] PCP - General Family Medicine 08/27/14 Sales Marketing Manager Relationship Specialty Start Date End Date Ila Canales MD [address] [facility], [place] [address] PCP - General Family Medicine 08/27/14 Sales Marketing Manager Relationship Specialty Start Date End Date Ila Canales MD [address] [place] [address] PCP - General Family Medicine 08/27/14 Sales Marketing Manager Relationship Specialty Start Date End Date Ila Canales MD [address] [place] [address] PCP - General Family Medicine 08/27/14 Sales Marketing Manager Relationship Specialty Start Date End Date Ila Canales MD [address] [place] [address] PCP - General Family Medicine 08/27/14 Sales Marketing Manager Relationship Specialty Start Date End Date Ila Canales MD [address] [place] [address] PCP - General Family Medicine 08/27/14 Sales Marketing Manager Relationship Specialty Start Date End Date Ila Canales MD [address] [place] [address] PCP - General Family Medicine 08/27/14 Sales Marketing Manager Relationship Specialty Start Date End Date Ila Canales MD [address] [place] [address] PCP - General Family Medicine 08/27/14 Sales Marketing Manager Relationship Specialty Start Date End Date Ila Canales MD [address] [place] [address] PCP - General Family Medicine 08/27/14 Sales Marketing Manager Relationship Specialty Start Date End Date Ila Canales MD [address] [place] [address] PCP - General Family Medicine 08/27/14 Sales Marketing Manager Relationship Specialty Start Date End Date Ila Canales MD [address] [place] [address] PCP - General Family Medicine 08/27/14 Sales Marketing Manager Relationship Specialty Start Date End Date Ila Canales MD [address] [place] [address] PCP - General Family Medicine 08/27/14 Sales Marketing Manager Relationship Specialty Start Date End Date Benigno Laguerre DO [address] [place], [place] [phone] PCP - General Internal Medicine 07/02/24 Ginny Eaton, [email or web address] PROGRAMMER [address] [facility] [address] [place], [place] [address] Change Lead Internal Medicine 05/12/24 Trini Blackburn DO [address] [address] PCP Resident 07/02/24 Sales Marketing Manager Relationship Specialty Start Date End Date Benigno Laguerre DO [address] [place] [address] PCP - General Internal Medicine 07/02/24 Ginny Etaon [email or web address] PROGRAMMER [address] [facility] [address] [place] [address] Change Lead Internal Medicine 05/12/24 Trini Blackburn DO [address] [place], [place] [phone] PCP Resident 07/02/24 Sales Marketing Manager Relationship Specialty Start Date End Date Carlotta Benigno [address] [place], [place] [phone] PCP - General Internal Medicine 07/02/24 Ginny Eaton, [email or web address] PROGRAMMER [address] [facility] [place] [address] Change Lead Internal Medicine 05/12/24 Trini Blackburn DO [address] [place], [place] [phone] PCP Resident 07/02/24 Sales Marketing Manager Relationship Specialty Start Date End Date Carlotta BenignoDO [address] [place], [place] [phone] PCP - General Internal Medicine 07/02/24 Ginny Eaton, [email or web address] PROGRAMMER [address] [facility] [address] [place], [place] [address] Change Lead Internal Medicine 05/12/24 Trini Blackburn DO [address] [address] PCP Resident 07/02/24 Sales Marketing Manager Relationship Specialty Start Date End Date Carlotta BenignoDO [address] [place], [place] [phone] PCP - General Internal Medicine 07/02/24 Ginny Eaton [email or web address] PROGRAMMER [address] [facility] [place] [address] Change Lead Internal Medicine 05/12/24 Trini Blackburn DO [address] [place], [place] [phone] PCP Resident 07/02/24 Sales Marketing Manager Relationship Specialty Start Date End Date Benigno LaguerreDO [address] [facility] 5[address] [place], [place] [phone] PCP - General Internal Medicine 07/02/24 Ginny Eaton APRN.CNP [address] [facility] [place] [address] Change Lead Internal Medicine 05/12/24 Trini Blackburn DO [address] [place], [place] [phone] PCP Resident 07/02/24 Team Status: Active Member [...] BE BASED ON THE PRIMARY CLINICAL RECORDS. [employer] provides no warranty or guarantee of the accuracy or completeness of information in this document.
--- OUTSIDE RECORDS SUMMARY | 2025-03-31 20:49 | XMS RPT_ITS | CCD ---
Author Organization [facility] ion [facility] Care Team Providers Care Plasma Processor Name Role Phone Ila Canales MD Primary Care Provider [phone] ILA CANALES Referring Unavailable ILA CANALES Primary Care Unavailable MD GAYLE GREGORY Attending Unavailable Ila Canales MD Primary Care Provider Angelito ASSISTANT FARM OPERATIONS MANAGER.PREBOARDER, Ginny Unavailable [phone] Trini Blackburn DO Unavailable Benigno Laguerre DO Primary Care Provider TRINI BLACKBURN Attending Unavailable SELF Referring Unavailable BENIGNO LAGUERRE Primary Care Unavailable Dr. Derek Sanchez MD Emergency Department Physici an Javon SUH, Dr. De La Rosa Primary Care Physician [phone] ILA CANALES Primary Care Unavailable INDY QUIGLEY Attending Unavailable Derek Sanchez Attending Unavailable Rj Canales Primary Care Unavailable Edilma Ritter Referring Unavailable Rj Canales Primary Care Unavailable Edilma Ritter Attending Unavailable [facility] Doctor, Out of Primary Care Unavailable Nigel Quezada Attending Unavailable [facility] Doctor, Out of Referring Unavailable Edilma Ritter Referring Unavailable Rj Canales Primary Care Unavailable Edilma Ritter Consulting Unavailable Edilma Ritter Attending Unavailable Rj Canales Primary Care Unavailable Rj Canales Referring Unavailable Edilma Ritter Attending Unavailable [facility] Doctor, Out of Primary Care Unavailable Antelmo Maldonado Attending Unavailable [facility] Doctor, Out of Referring Unavailable Assessment, Health Risk Attending Unavaila ble Assessment, Health Risk Referring Unavaila ble [place] Doctor, Out of Primary Care Unavailable Fernando Parra Attending Unavailable Allergies Allergy Classification Reported Allergen(s) Allergy Type Date of Onset Reaction(s) Facility Amoxicillin / Clavulanate (1 source) Amoxicillin / Clavulanate Drug Allergy [address] [facility] (20 sources) Amoxicillin / Clavulanate; Translations: [AMOXICILLIN-POT CLAVULANATE] Drug Allergy [address] [facility] (11 sources) environmental [Other] Propensity to adverse reactions [address] [facility] (20 sources) Seasonal allergy; Translations: [SEASONAL ALLERGIES] Allergy to substance [address] [facility] (2 sources) Amoxicillin Drug Allergy 3 Abd cramps/diarrhe a [facility] (2 sources) Clavulanate Drug Allergy 3 Abd cramps/diarrhe a [facility] (1 source) Amoxicillin Drug Allergy 5 [facility] (1 source) Clavulanate Drug Allergy 5 [facility] Medications Current Medications Medication Drug Class(es) Dates Sig (Normalized) Sig (Original) [id number] 200 actuat albuterol 0.09 mg/actuat metered dose [...] on above: Take 1 capsule by mo [facility] twice daily for 7 days. diazePAM 5 [...] Comment on above: Take 1 tablet [facility] at bedtime as needed. fluconazole 200 mg [...] 5 days. Take 1 capsule by mo [facility] two times a day for 5 days. [...] on above: TAKE 1 CAPSULE BY MO [facility] EVERY DAY. TAKE AT LEAST [...] Comment on above: Take 1 tablet by [facility] once daily. metFORMIN hydrochloride 500 mg oral [...] on above: Take 2 tablets by mo [facility] once daily for 5 days. Take 5 tablets by mo [facility] once daily for 1 day, THEN 4 [...] Comment on above: Take 1 tablet by [facility] as directed. at onset of headache. May [...] Test Name Value Interpretation Reference Range Facility [facility] ([id number]) 1980 F Date Time Provider Department 03/27/25 ILA CANALES During your visit today, we recorded the following information about you: Karlene Lanza LPN 03/27/2025 3:50 PM Signed Received ed from [facility]. Placed in provider's inbox for review. Route to [place] scanning Allergies As of Date: 03/27/2025 Noted Allergy Reaction AUGMENTIN (AMOXICILLIN-POT CLAVUL*07/01/2021 6 - Diarrhea SEASONAL ALLERGIES 11/13/2007 5 - Intolerance Date Reviewed: 03/12/2025 Reviewed by: Pao Ponce LPN - Fully Assessed Reason for Visit: Received Outside Medical Records [[id number]] Cmt: [facility] Prescriptions as of 03/27/2025 - albuterol HFA [...] Status:Closed by KARLENE LANZA on 03/27/25 Normal [facility] Discharge Instructionon 03-06 Discharge Instruction [facility] Medical Records Department [address] [place] [address] Instructions for Home/Discharge Instructions 03/27/25 0806 MR#: [id number] Acct: [id number] Name: ABDOUL FAITH Rep #: [id number] : 1980 44 From: Edilma Ritter MD PCP: Dr. Rj Canales MD Status:REG [facility] Discharge Instructions Diet Discharge Diet: No restrictions [...] applicable. Discharge Plan Admission Attending Provider: Edilma Rittre Primary Care Provider: Rj Canales Instructions Print Language: Mongolian Discharge Orders/Prescriptions Prescriptions: New oxycodone-acetaminoph en 5-325 [...] 28 0RF Referrals / Follow Up: Rj Canalse MD [Primary Care Provider, Family Practice] Disposition Disposition (needs filled in before D/C Order can be placed): Home, Self Care 03/27/25810 Edilma Ritter MD CC: Dr. Rj Canales MD Signed [facility] MR/POSTOP.ANE 03-27-2025 MR/POSTOP.[facility] Medical Records Department [address] [place] [address] Anesthesia Postop Eval I 03/27/25910 MR#: [id number] Acct: [id number] Name: ABDOUL FAITH MONROE Rep #: [id number] : 1980 44 From: Torsten Greer CRNA PCP: Dr. Rj Canales MD Status:REG SDC Y Race: C Location: [place] [address] Anesthesia: Postop Eval I Current Vital Signs [...] Greer CRNA Cosigner Signature: Date CC: Signed [facility] MR/TVHWBDOS2rt 03-27-2025 MR/POSTOPAN2 [facility] Medical Records Department [address] [place] [address] Anesthesia Postop Eval II 03/27/25 1429 MR#: [id number] Acct: [id number] Name: ABDOUL FAITH Rep #: [id number] : 1980 44 From: Zhao Jimenez MD PCP: Dr. Rj Canales MD Status:DEP [facility] Y Race: C Location: [facility] Anesthesia Postop Eval I Sum Postop Eval Completion status Anesthesia document: Postop Eval 1 completed: Yes Anesthesia Postop Eval I Summary Anesthesia Postop Eval I Summary: Anesthesia Postop Eval I: Assessment Summary Airway patent Yes 03/27/25 09:12 CHEMICAL TECHNICIAN.RWOO Spontaneous unlabored Yes 03/27/25 09:12 CHEMICAL TECHNICIAN.RWOO respirations Mental status Asleep 03/27/25 09:12 CHEMICAL TECHNICIAN.RWOO nausea No 03/27/25 09:12 CHEMICAL TECHNICIAN.RWOO Vomiting No 03/27/25 09:12 CHEMICAL TECHNICIAN.RWOO Anesthesia Postop Eval I: Fluid Summary Crystalloid volume administer 500 03/27/25 09:12 CHEMICAL TECHNICIAN.RWOO (ml) Colloids volume administered ( ml) Blood Product volume administered (ml) Total IV fluid infused 500 03/27/25 09:12 CHEMICAL TECHNICIAN.RWOO Anesthesia Postop Eval I: Summary Notes Anesthesia Complication No 03/27/25 09:12 CHEMICAL TECHNICIAN.RWOO Anesthesia Complication Comment: Post-operative progress note Anesthesia: Postop Eval II Evaluation Mental status: Awake and Calm Pain Level: 1 nausea: No Vomiting: No Complications Anesthesia Complication: No 03/27/25 142 Date Zhao Jimenez MD Cosigner Signature: Date CC: Signed Normal [facility] Operative Reporton Operative Report [facility] Medical Records Department [address] [place] [address] Operative Report 03/27/25 0914 MR#: [id number] Acct: [id number] Name: ABDOUL FAITH Rep #: [id number] : 1980 44 From: Edilma Ritter MD PCP: Dr. Rj Canales MD Status:[facility] Location: [place] [address] Operative Report (Standard) Operative Information Date of Procedure: 03/27/25 Pre-Operative Diagnosis: Left ureteral and right renal calculi Post-Operative Diagnosis: Same Surgery/Procedure Performed: Cystoscopy, left retrograde pyelogram, left ureteroscopy, thulium laser lithotripsy, stone basket extraction, left ureteral stent insertion, right ureteroscopy slate picker: No Type of Anesthesia: General RN Documented [...] S that apply: Drains Drain details: 4.5 Anguillan by 26 cm JJ stent Estimated Blood [...] was utilized for placement of a 4.5 Anguillan by 26 cm JJ stent. There was good positioning seen on fluoroscopy and in the urinary bladder. There was an area consistent with a possible second ureteral orifice 1 cm medial to the orifice where the stone was identified. A retrograde pyelogram using an 8 Anguillan cone-tip catheter was done into this area [...] prophylaxis not ordered: Treatment Not Indicated 03/27/25 1287 Cosigner Signature (if applicable): CC: Dr. Edilma Ritter MD; Dr. Rj Canales MD Signed Normal [facility] ,Urineon 03-27-2025 Beta HCG ( test) Ql (U) Negative [facility] Comment on above: Result Comment: Very dilute urine specimens, as indicated by a low specific gravity, may not contain retention representative levels of hCG. If is still suspected, a first morning urine specimen should be collected 48 hours later and tested. Performed By: #### L 700.6800, L500.2500, L100.0100 #### [facility] [address] [place], [address] 12 Lead EKGon 03-21-2025 12 Lead EKG [facility] Cardiovascular Services [address] [place] [address] 12 Lead EKG 03/21/25 0725 MR#: [id number] Acct: [id number] Name: ABDOUL FAITH Rep #: [id number] : 1980 44 From: Nigel Quezada MD Attending Dr: Dr. Edilma Ritter MD Status: PRE [facility] Ordering Dr: Zhao Jimenez MD Date: 03/21/25 Location: [facility] Sex: F C Admitted: [...] ECG Confirmed by CONCETTA SUH, NIGEL ([id number]), slot editor LAURENCE DUKES ([id number]) on 03/24/2025 6:58:00 AM Referred By: Edilma Ritter Confirmed By: NIGEL QUEZADA MD 03/24/25 0658 Date Nigel Quezada MD CC: Dr. Zhao Jimenez MD; Dr. Edilma Ritter MD; Dr. Rj Canales MD Signed [facility] MR/PAT.Conor 03-21-2025 MR/PAT.[facility] Medical Records Department [address] [place] [address] PAT - Anesthesia 03/21/25 1552 MR#: [id number] Acct: [id number] Name: ABDOUL FAITH Rep #: [id number] : 1980 44 From: Miguel Sahu MD PCP: Dr. 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 - popcorn candy maker Female Yes 03/20/25 15:24 HX of Motion [...] 03/18/25 08:30 Respiratory Assessment Respiratory Assessment - popcorn candy maker: Respiratory Tract Infection Hx - popcorn candy maker Hx Respiratory Tract Infection No 03/20/25 15:24 STOP Sleep Apnea STOP Sleep Apnea - popcorn candy maker: STOP Sleep Apnea - popcorn candy maker Hx Hypertension No 03/20/25 15:24 Hx Sleep [...] Tobacco Use History Tobacco Use History - popcorn candy maker: Tobacco Use History - popcorn candy maker Tobacco Use Smoking Status Current every day smoker 03/20/25 15:24 Hx Tobacco Use Yes 03/20/25 15:24 Years Smoking Packs Smoked per Day Smoking Cessation Date was within the last 15 years Hx Smoking Cessation Date Hx Smoking Cessation Counseling Hematologic Medial History Hematologic Hx - popcorn candy maker: 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 [facility] 03-20-2025 [place] Telephone (FPWADS) ABDOUL FAITH ([id number]) 1980 F Date Time Provider Department 03/20/25 ILA CANALES During your visit today, we recorded the following information about you: Karlene Lanza LPN 03/20/2025 9:56 AM Signed Received visit summary from [facility]. Placed in provider's inbox for review. Route to MA scanning Allergies As of Date: 03/20/2025 Noted Allergy Reaction AUGMENTIN (AMOXICILLIN-POT CLAVUL*07/01/2021 6 - Diarrhea SEASONAL ALLERGIES 11/13/2007 5 - Intolerance Date Reviewed: 03/12/2025 Reviewed by: Pao Ponce LPN - Fully Assessed Reason for Visit: Received Outside Medical Records [1946] Cmt: [facility] Prescriptions as of 03/20/2025 - [...] Encounter Status:Closed by KARLENE LANZA on 03/20/25 [facility] MR/Malvin 03-18-2025 MR/KRYSTIAN [facility] [address] [place] [address], [address] [place] [address] OFFICE VISIT Date of Service: 03/18/25 MR#: [id number] Acct: [id number] Name: ABDOUL FAITH MONROE Rep #: [id number] : 1980 Provider: Dr. Edilma Andino i, MD Age/Sex: 44/F Location: [facility] Status: Signed Intake Vital Signs 03/13/25 09:25 03/18/25 08:30 Height 5 ft 5 in 5 ft 5 in Weight: 174 lb BMI 28.9 BP 114/89 H Pulse 99 Intake Visit Reasons: ER F/U Stones Chief Complaint: ER follow up for 6mm kidney stone Telecommunications Project Manager Required: No Accompanied by: self Is patient in pain?: Yes (aching kidney stone pain ) Pain scale (1-10): 7 Allergies amoxicillin (From Augmentin) Adverse Reaction (Mild, Verified 03/13/25 09:24) Abd cramps/diarrhea clavulanic acid (From Augmentin) Adverse Reaction (Mild, Verified 03/13/25 09:24) Abd cramps/diarrhea Medications ???Medication ???Instructions ???Recorded ???Confirmed ???Type albuterol sulfate 90 mcg/actuation 1 - 2 puff inhalation Q6H PRN KS N 06/17/16 03/18/25 History aerosol inhaler (Ventolin [...] Suggs on 03/18/25 08:34 Off Ur Spec [place] 1.015 Last Edit by Jeannie Suggs on [...] Edit by (more content not included)... Normal [facility] ([id number]) 1980 F Date Time Provider Department 03/17/25 ILA CANALES FPWADS During your visit today, we recorded the following information about you: Michelle Brown LPN 03/17/2025 3:35 PM Signed Received 03/15/2025 from [facility]. Placed in provider's inbox for review. Route to [place] for scanning Allergies As of Date: 03/17/2025 Noted Allergy Reaction AUGMENTIN (AMOXICILLIN-POT CLAVUL*07/01/2021 6 - Diarrhea SEASONAL ALLERGIES 11/13/2007 5 - Intolerance Date Reviewed: 03/12/2025 Reviewed by: Pao Ponce LPN - Fully Assessed Reason for Visit: Received Outside Medical Records [[id number]] Cmt: [facility] ER visit summary 03/13/2025 abdominal pain [...] Status:Closed by MICHELLE BROWN on 03/17/25 Normal [facility] Abdomen/Pelvis W IV Cont ONL Yon 03-13-2025 Abdomen/Pelvis W IV Cont ONLY [facility] Imaging Services [address] [place] [address] Abdomen/Pelvis W IV Cont ONLY MR#: [id number] Acct: [id number] Name: ABDOUL FAITH Rep #: [id number] : 1980 F 44 From: Panfilo Su MD PCP: Dr. Rj Canales MD Status: REG ER Study: Abdomen/Pelvis W IV Cont ONLY Date of Exam: Exam# [id number] Ordering Dr: Derek Sanchez MD PROCEDURE: ABDOMEN/PELVIS [...] right kidney. Normal appendix Cholelithiasis Reading Location: [facility] CC: Dr. Derek Sanchez MD; Dr. Rj Canales MD Pharmaceutical Representative: Signed Normal [facility] Absolute lymphocyte countOrd ered By: Derek Sanchez on 03-13-2025 Lymphocytes Auto (Unsp spec) [#/Vol] 1.27 10*3/uL 0.83-4.51 [facility] Absolute neutrophil countOrd ered By: Derek Sanchez on 03-13-2025 Neutrophils (Bld) [#/Vol] 5.2 10*3/uL 2.0-7.7 [facility] Anion gap in Serum or Plasma Ordered By: Derek Sanchez on 03-13-2025 Anion gap [Moles/Vol] 9 mmol/L 5-15 [facility] Automated blood erythrocyte countOrdered By: Derek Sanchez on 03-13-2025 RBC (Bld) [#/Vol] 4.92 10*6/uL Normal 4.2-5.4 [facility] Comment on above: Performed By: #### L 700.9370, L500.2500, L100.0100 #### [facility] [address] [place], [place], [address] Automated blood hematocrit ( percentage)Ordered By: Derek Sanchez on 03-13-2025 Hematocrit (Bld) [Volume fraction] 42.2 % Normal 37-47 [facility] Comment on above: Performed By: #### L 700.6800, L500.2500, L100.0100 #### [facility] [address] [place], [address] Automated lymphocyte count a s percentage of total leukocytesOrdered By: Derek Sanchez on 03-13-2025 Lymphocytes/100 WBC Auto (Unsp spec) 17.5 % Low 19-41 [facility] BUN/creatinine ratioOrdered By: Derek Sanchez on 03-13-2025 Urea nitrogen/Creatinine [Mass ratio] 11.1 mg/mg - [facility] Basic Metabolic Profile (BMP )on 03-13-2025 BUN/CRE 11.1 RATIO Normal - [facility] Comment on above: Performed By: #### L 700.6800, L500.2500, L100.0100 #### [facility] [address] [place], [address] ECRCL 89.15 ml/min Normal 50-250 [facility] Comment on above: Performed By: #### L 700.6800, L500.2500, L100.0100 #### [facility] [address] [place], [address] GAP 9 Normal 5-15 [facility] Comment on above: Performed By: #### L 700.6800, L500.2500, L100.0100 #### [facility] [address] [place], [address] Potassium [Moles/Vol] 3.9 mmol/L Normal 3.3-5.1 [facility] Comment on above: Performed By: #### L 700.6800, L500.2500, L100.0100 #### [facility] [address] [place], [address] Basophil percentageOrdered B y: Derek Sanchez on 03-13-2025 Basophils/100 WBC (Bld) 0.4 % Normal 0-1 [facility] Comment on above: Performed By: #### L 700.6800, L500.2500, L100.0100 #### [facility] [address] [place], [address] Bilirubin Test strip Ql (U)O rdered By: Derek Sanchez on 03-13-2025 Bilirubin Ql (U) 1 mg/dL High Negative [facility] Comment on above: COLOR OF URINE MAY A FFECT DIPSTICK RESULTS. CBC W/Diff, Automatedon 10-0 Absolute Lymph 1.27 X10 3/uL Normal 0.83-4.51 [facility] Comment on above: Performed By: #### L 700.6800, L500.2500, L100.0100 #### [facility] [address] [facility] [place], [address] Absolute Neut 5.2 X10 3/uL Normal 2.0-7.7 [facility] Comment on above: Performed By: #### L 700.6800, L500.2500, L100.0100 #### [facility] [address] [place], [address] IG% 0.400 Normal 0.0-0.9 [facility] Comment on above: Result Comment: IG% - Immature Granulocytes (promyelocytes, myelocytes and metamyelocytes) > 1% indicates that a LEFT SHIFT is Present. Performed By: #### L 700.6800, L500.2500, L100.0100 #### [facility] [address] [place], [address] Lymphocytes/100 WBC (Bld) 17.5 % Low 19-41 [facility] Comment on above: Performed By: #### L 700.6800, L500.2500, L100.0100 #### [facility] [address] [place], [address] Nucleated RBC (Bld) [#/Vol] 0 10*3/uL Normal 0-5 [facility] Comment on above: Performed By: #### L 700.6800, L500.2500, L100.0100 #### [facility] [address] [place], [address] RDW SD 37.8 fl Normal 35.1-43.9 [facility] Comment on above: Performed By: #### L 700.6800, L500.2500, L100.0100 #### [facility] [address] [place], [address] Carbon dioxide, total [Moles /volume] in Central venous bloodOrdered By: Derek Sanchez on 03-13-2025 CO2 [Moles/Vol] 25.2 mmol/L Normal 21.0-32.0 [facility] Comment on above: Performed By: #### L 700.6800, L500.2500, L100.0100 #### [facility] [address] [place], [address] Chloride assayOrdered By: Remigio Sanchez on 03-13-2025 Chloride [Moles/Vol] 104 mmol/L Normal 98-108 [facility] Comment on above: Performed By: #### L 700.6800, L500.2500, L100.0100 #### [facility] [address] [place], [address] Emergency Department Summary on 03-13-2025 Emergency Department Summary [facility] Medical Records Department [address] [place] [address] Emergency Department Summary 03/13/25 MR#: [id number] Acct: [id number] Name: ABDOUL FAITH Rep #: [id number] : 1980 44 From: Derek Sanchez MD [...] 1 - 2 puff inhalation Q6H PRN KS N 06/17/16 Unknown History aerosol inhaler (Ventolin [...] Allergic/Immunologic E (more content not included)... Normal [facility] Eosinophil percentageOrdered By: Derek Sanchez on 03-13-2025 Eosinophils/100 WBC (Bld) 4.0 % Normal 0-5 [facility] Comment on above: Performed By: #### L 700.8780, L500.2500, L100.0100 #### [facility] [address] [place], [address] Erythrocyte distribution wid th ratioOrdered By: Derek Sanchez on 03-13-2025 Erythrocyte distribution width (RBC) [Ratio] 12.0 % Normal 11.6-14.6 [facility] Comment on above: Performed By: #### L 700.6800, L500.2500, L100.0100 #### [facility] [address] [place], [address] Erythrocyte distribution wid th standard deviationOrdered By: Derek Sanchez on 03-13-2025 Erythrocyte distribution width (RBC) [Ratio] 37.8 fl 35.1-43.9 [facility] Glomerular filtration rate ( GFR) estimation/1.73 sq m using serum, plasma, or whole bOrdered By: Derek Sanchez on 03-13-2025 GFR/1.73 sq M.predicted among non-blacks MDRD (S/P/Bld) [Vol rate/Area] 87 mL/min/{1.73_m2} Normal >60 [facility] Comment on above: mL/min/1.73m2 CKD-EP I Creatinine Equation (2020) Result Comment: mL/m in/1.73m2 CKD-EPI Creatinine Equation (2020) Performed By: #### L 700.6800, L500.2500, L100.0100 #### [facility] [address] [place], [address] Hemoglobin measurementOrdere d By: Derek Sanchez on 03-13-2025 Hemoglobin (Bld) [Mass/Vol] 14.4 g/dL Normal 12.0-15.0 [facility] Comment on above: Performed By: #### L 700.6800, L500.2500, L100.0100 #### [facility] [address] [place], [address] Immature granulocytes/100 WB C Auto (Bld)Ordered By: Derek Sanchez on 03-13-2025 Immature granulocytes/100 WBC (Bld) 0.400 % 0.0-0.9 [facility] Comment on above: IG% - Immature Granu locytes (promyelocytes, myelocytes and metamyelocytes) > 1% indicates that a LEFT SHIFT is Present. Ketones Test strip Ql (U)Ord ered By: Derek Sanchez on 03-13-2025 Ketones Ql (U) Negative Negative [facility] MCV (mean corpuscular volume ) determinationOrdered By: Derek Sanchez on 03-13-2025 MCV (RBC) [Entitic vol] 85.8 fL Normal 81-99 [facility] Comment on above: Performed By: #### L 700.6800, L500.2500, L100.0100 #### [facility] [address] [place], [address] Mean corpuscular hemoglobin (MCH) determinationOrdered By: Derek Sanchez on 03-13-2025 MCH (RBC) [Entitic mass] 29.3 pg Normal 27.0-32.0 [facility] Comment on above: Performed By: #### L 700.6800, L500.2500, L100.0100 #### [facility] [address] [place], [address] Mean corpuscular hemoglobin concentration (MCHC) determinationOrdered By: Derek Sanchez on 03-13-2025 MCHC (RBC) [Mass/Vol] 34.1 g/dL Normal 32-36 [facility] Comment on above: Performed By: #### L 700.6800, L500.2500, L100.0100 #### [facility] [address] [place], [address] Mean platelet volume determi nationOrdered By: Derek Sanchez on 03-13-2025 Platelet mean volume (Bld) [Entitic vol] 9.2 fL Normal 6.2-12.0 [facility] Comment on above: Performed By: #### L 700.6800, L500.2500, L100.0100 #### [facility] [address] [place], [address] Microscopic analysis of urin e for red blood cells (RBC)Ordered By: Derek Sanchez on 03-13-2025 Microscopic analysis of urine for red blood cells (RBC) 0 SEEN /hpf 0-5 [facility] Monocyte percentageOrdered B y: Derek Sanchez on 03-13-2025 Monocytes/100 WBC (Bld) 6.3 % Normal 0-10 [facility] Comment on above: Performed By: #### L 700.6800, L500.2500, L100.0100 #### [facility] [address] [place], [place], [id number] Mucus LM Ql (Urine sed)Order ed By: Derek Sanchez on 03-13-2025 Mucus Ql (Urine sed) 0 SEEN /hpf [facility] Neutrophil percentageOrdered By: Derek Sanchez on 03-13-2025 Neutrophils/100 WBC (Bld) 71.4 % High 47-70 [facility] Comment on above: Performed By: #### L 700.6800, L500.2500, L100.0100 #### [facility] [address] [facility]. [place], [place], [id number] Nitrite Test strip Ql (U)Ord ered By: Derek Sanchez on 03-13-2025 Nitrite Ql (U) Positive High Negative [facility] Nucleated red blood cell per centageOrdered By: Derek Sanchez on 03-13-2025 Nucleated RBC/100 WBC (Bld) [Ratio] 0 % 0-5 [facility] Platelet countOrdered By: Remigio Sanchez on 03-13-2025 Platelets (Bld) [#/Vol] 329 10*3/uL Normal 150-450 [facility] Comment on above: Performed By: #### L 700.6800, L500.2500, L100.0100 #### [facility] [address] [place], [place], [address] Potassium measurement (mass/ volume)Ordered By: Derek Sanchez on 03-13-2025 Potassium (Unsp spec) [Mass/Vol] 3.9 mmol/L 3.3-5.1 [facility] ,Serum,hCG Quali.on 03-13-2025 HCG, SERUM QUAL Negative Normal [facility] Comment on above: Performed By: #### L 700.6800, L500.2500, L100.0100 #### [facility] [address] [facility] [place], [address] Protein Test strip Ql (U)Ord ered By: Derek Sanchez on 03-13-2025 Protein Ql (U) 30 mg/dl High Negative [facility] Serum beta-hCG test, qualita tiveOrdered By: Derek Sanchez on 03-13-2025 Beta HCG ( test) Ql Negative [facility] Serum creatinine measurement (mass/volume)Ordered By: Derek Sanchez on 03-13-2025 Creatinine [Mass/Vol] 0.85 mg/dL Normal 0.70-1.20 [facility] Comment on above: Performed By: #### L 700.6800, L500.2500, L100.0100 #### [facility] [address] [facility] [place], [address] Serum glucose measurement (m ass/volume)Ordered By: Derek Sanchez on 03-13-2025 Glucose [Mass/Vol] 94 mg/dL Normal 70-99 [facility] Comment on above: Performed By: #### L 700.6800, L500.2500, L100.0100 #### [facility] [address] [place], [address] Serum or plasma calcium unruly urement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 [facility] 07-02-2024 08:18-0500 SaO2% (BldA) [Mass fraction] 99 % Trini Blackburn DO Work Phone: [facility] 07-02-2024 08:18-0500 Systolic blood pressure 121 mm[Hg] Trini Blackburn DO Work Phone: [facility] 12-21-2023 07:43-0400 Body height 165.1 cm Nancy Viera APRN.PREBOARDER Work Phone: [facility] 12-21-2023 07:43-0400 Body mass index (BMI) [Ratio] 32.28 kg/m2 Nancy Viera APRN.PREBOARDER Work Phone: [facility] 12-21-2023 07:43-0400 Body weight 88 kg Nancy Viera APRN.PREBOARDER Work Phone: [facility] 12-21-2023 07:43-0400 Diastolic blood pressure 85 mm[Hg] Nancy Viera APRN.PREBOARDER Work Phone: [facility] 12-21-2023 07:43-0400 Heart rate 81 /min Nancy Viera APRN.PREBOARDER Work Phone: [facility] 12-21-2023 07:43-0400 SaO2% (BldA) [Mass fraction] 98 % Nancy Viera APRN.PREBOARDER Work Phone: [facility] 12-21-2023 07:43-0400 Systolic blood pressure 120 mm[Hg] Nancy Viera APRN.PREBOARDER Work Phone: [facility] 12-14-2023 15:32-0400 Body height 166.4 cm Juan Manuel Gayle DO Work Phone: [facility] 12-14-2023 15:32-0400 Body mass index (BMI) [Ratio] 31.79 kg/m2 Juan Manuel Gayle DO Work Phone: [facility] 12-14-2023 15:32-0400 Body weight 88 kg Juan Manuel Gayle DO Work Phone: [facility] 12-14-2023 15:32-0400 Diastolic blood pressure 64 mm[Hg] Juan Manuel Gayle DO Work Phone: [facility] 12-14-2023 15:32-0400 Systolic blood pressure 96 mm[Hg] Juan Manuel Gayle DO Work Phone: [facility] 09-15-2023 11:26-0400 Body weight 88.45 kg Nancy Viera APRN.PREBOARDER Work Phone: [facility] 09-15-2023 11:26-0400 Diastolic blood pressure 72 mm[Hg] Nancy Viera APRN.PREBOARDER Work Phone: [facility] 09-15-2023 11:26-0400 Systolic blood pressure 114 mm[Hg] Nancy Viera APRN.PREBOARDER Work Phone: [facility] 08-22-2023 09:02-0400 Diastolic blood pressure 70 mm[Hg] Ila Canales MD Work Phone: [facility] 08-22-2023 09:02-0400 Systolic blood pressure 110 mm[Hg] Ila Canales MD Work Phone: [facility] 08-22-2023 08:38-0400 Body height 166.4 cm Ila Canales MD Work Phone: [facility] 08-22-2023 08:38-0400 Body weight 88 kg Ila Canales MD Work Phone: [facility] 08-22-2023 08:38-0400 Heart rate 88 /min Ila Canales MD Work Phone: [facility] 08-22-2023 08:38-0400 SaO2% (BldA) [Mass fraction] 100 % Ila Canales MD Work Phone: [facility] 05-30-2023 10:04-0500 Diastolic blood pressure 97 mm[Hg] [facility] 05-30-2023 10:04-0500 Heart rate 87 /min [facility] 05-30-2023 10:04-0500 Respiratory rate 16 /min [facility] 05-30-2023 10:04-0500 SaO2% (BldA) [Mass fraction] 98 % [facility] 05-30-2023 10:04-0500 Systolic blood pressure 119 mm[Hg] [facility] 05-30-2023 08:31-0500 Body height 165.1 cm [facility] 05-30-2023 08:31-0500 Body mass index (BMI) [Ratio] 31.4 kg/m2 [facility] 05-30-2023 08:31-0500 Body temperature 97.2 [degF] [facility] 05-30-2023 08:31-0500 Body weight 85.72 kg [facility] 05-20-2023 12:06-0500 Body temperature 97.7 [degF] César Fernandez MD Work Phone: [facility] 05-20-2023 12:06-0500 Body weight 84.91 kg César Fernandez MD Work Phone: [facility] 05-20-2023 12:06-0500 Diastolic blood pressure 100 mm[Hg] César Fernandez MD Work Phone: [facility] 05-20-2023 12:06-0500 Heart rate 92 /min César Fernandez MD Work Phone: [facility] 05-20-2023 12:06-0500 Respiratory rate 20 /min César Fernandez MD Work Phone: [facility] 05-20-2023 12:06-0500 SaO2% (BldA) [Mass fraction] 100 % César Fernandez MD Work Phone: [facility] 05-20-2023 12:06-0500 Systolic blood pressure 134 mm[Hg] César Fernandez MD Work Phone: [facility] 04-02-2023 08:44-0400 Body temperature 98.8 [degF] Aminah Athy PA-C Work Phone: [facility] 04-02-2023 08:44-0400 Body weight 82.46 kg Aminah Athy PA-C Work Phone: [facility] 04-02-2023 08:44-0400 Diastolic blood pressure 80 mm[Hg] Aminah Athy PA-C Work Phone: [facility] 04-02-2023 08:44-0400 Heart rate 100 /min Aminah Athy PA-C Work Phone: [facility] 04-02-2023 08:44-0400 Respiratory rate 20 /min Aminah Athy PA-C Work Phone: [facility] 04-02-2023 08:44-0400 SaO2% (BldA) [Mass fraction] 99 % Aminah Athy PA-C Work Phone: [facility] 04-02-2023 08:44-0400 Systolic blood pressure 118 mm[Hg] Aminah Athy PA-C Work Phone: [facility] 07-25-2022 14:57-0500 Body height 167.6 cm Ila Canales MD Work Phone: [facility] 07-25-2022 14:57-0500 Body weight 90.27 kg Ila Canales MD Work Phone: [facility] 07-25-2022 14:57-0500 Diastolic blood pressure 73 mm[Hg] Ila Canales MD Work Phone: [facility] 07-25-2022 14:57-0500 Heart rate 82 /min Ila Canales MD Work Phone: [facility] 07-25-2022 14:57-0500 SaO2% (BldA) [Mass fraction] 97 % Ila Canales MD Work Phone: [facility] 07-25-2022 14:57-0500 Systolic blood pressure 119 mm[Hg] Ila Canales MD Work Phone: [facility] Encounters Encounter Date Encounter Type Care Provider Facility Start: 03-28-2025 Encounter for other preprocedural examination [facility] Start: 03-27-2025 ambulatory [facility] Facility: [facility] Start: 03-27-2025 End: 03-27-2025 ambulatory [facility] Facility:[facility] Start: 03-18-2025 End: 03-18-2025 ambulatory Rj Canales Facility:[facility] Start: 03-13-2025 End: 03-13-2025 Emergency department patient visit Dr. Derek Sanchez MD Work Phone: -Emergency Department Work Phone: Start: 03-12-2025 End: 03-12-2025 ambulatory ILA CANALES Facility:[facility] Start: 01-24-2025 End: 01-26-2025 Refill Trini Blackburn DO Work Phone: [facility] ([facility]) Comment on above: Refill Request (Albu terol inhaler) Start: 11-22-2024 End: 11-22-2024 Telephone encounter Trini Alexey DO Work Phone: [facility] ([facility]) Comment on above: Appointment (6 Month Follow up) Start: 10-07-2024 End: 10-07-2024 Emergency department patient visit Out of Town Doctor Facility:[facility] Start: 09-23-2024 End: 09-23-2024 Refill Trini Alexey DO Work Phone: [facility] ([facility]) Comment on above: Refill Request ([place] hollis. Manish) Start: 08-28-2024 End: 08-29-2024 ambulatory Trini Alexey DO Work Phone: [facility] ([facility]) Start: 08-28-2024 End: 08-29-2024 Patient encounter procedure Trini Blackburn DO Work Phone: [facility] ([facility]) Comment on above: Inhaler Start: 08-26-2024 End: 08-27-2024 Telephone encounter Trini Blackburn DO Work Phone: [facility] ([facility]) Comment on above: Instructor Dancing - O ivory ([facility] - updated instructions) Start: 08-23-2024 End: 08-23-2024 Refill Benigno Laguerre DO Work Phone: [facility] ([facility]) Comment on above: Refill Request Returning Patient's Call Start: 08-21-2024 End: 08-21-2024 ambulatory [facility] Town Doctor Facility:[facility] Start: 08-21-2024 End: 08-21-2024 ambulatory Out of Town Doctor Facility:[facility] Start: 08-21-2024 ambulatory Health Risk Assessment Facility:[facility] Start: 07-08-2024 End: 07-08-2024 Telephone encounter Benigno Laguerre DO Work Phone: [facility] ([facility]) Comment on above: Insurance Authorizat ion (PA for albuterol inhaler) Start: 07-02-2024 End: 07-02-2024 Telephone encounter Trini Blackburn DO Work Phone: [facility] ([facility]) Comment on above: Referral Information (Cardiology) Start: 07-02-2024 End: 07-02-2024 Office outpatient new 30 minutes Trini Blackburn DO Work Phone: [facility] ([facility]) Comment on above: Depression, unspecif ied depression type (Primary Dx); Mild persistent asthma without complication; Obesity (BMI 30.0-34.9); Palpitations; Lightheadedness Start: 07-02-2024 End: 07-02-2024 ambulatory TRINI BLACKBURN Facility:[facility] Start: 02-12-2024 End: 02-12-2024 Telephone encounter Ila Canales MD Work Phone: [facility] Comment on above: Received Outside Med ical Records ([facility] ED 02/09) Start: 01-18-2024 Refill Ginny UMANZOR.PREBOARDER Work Phone: [facility] Comment on above: Refill Request Start: 01-16-2024 Chart abstracting [facility] Work Phone: Neurology Comment on above: PSG Check In Start: 01-13-2024 Refill Nancy LEONARD RN.PREBOARDER Work Phone: OB/Gynecology Comment on above: Refill Request Start: 01-10-2024 Telephone encounter Lidia mack RN Cardiology Lab Comment on above: Reminder Call Start: 12-21-2023 Telephone encounter Nancy rdz APRN.PREBOARDER Work Phone: OB/Gynecology Comment on above: Insurance Authorizat ion Start: 12-21-2023 End: 12-21-2023 Patient encounter procedure Nancy Viera APRN.PREBOARDER Work Phone: OB/Gynecology Comment on above: Gastroesophageal [...] Start: 12-14-2023 End: 12-14-2023 ambulatory ILA CANALES Facility:[facility] Start: 12-14-2023 Telephone encounter Juan Manuel Gayle DO Work Phone: Cardiology Comment on above: Appointment Start: 11-22-2023 Refill Ila burk MD Work Phone: [facility] Comment on above: Refill Request Start: 10-02-2023 Telephone encounter Keo Maynard i, MD Work Phone: Cardiology Comment on [...] encounter status Nancy Viera APRN.CNP Work Phone: [facility] Work Phone: Start: 08-22-2023 End: 08-22-2023 Patient encounter procedure Ila Canales MD Work Phone: [facility] Comment on above: Well adult exam (Marge sofiya Dx); Mild persistent asthma without complication; Neck pain on left side; Cervicogenic headache; Palpitations; Atypical chest pain; Systolic click; Chronic foot pain, left; Tetanus-diphtheria (Td) vaccination Start: 08-22-2023 End: 08-22-2023 Patient encounter status Ila Canales MD Work Phone: [facility] Work Phone: Start: 08-10-2023 Documentation procedure Mammog jesu Coordinator [facility] Start: 08-10-2023 Letter encounter Mammography Coordinator [facility] Department Start: 08-09-2023 End: 08-09-2023 Subsequent hospital visit by physician Screen Mammo [facility] M[facility] Comment on above: Encounter for screen ing mammogram for breast cancer [Z12.31] Start: 08-02-2023 ambulatory Ila burk MD Work Phone: Internal Medicine [facility] Start: 05-30-2023 End: 05-30-2023 Emergency department patient visit [facility]-Emergency Department Work Phone: Start: 05-22-2023 End: 05-22-2023 Subsequent hospital visit by physician Xr [facility] Work Phone: Radiology Comment on above: Subacute cough [R05. 2] Start: 05-20-2023 End: 05-20-2023 Patient encounter procedure César Fernandez MD Work Phone: [facility] Comment on above: Subacute cough (Prim elisha Dx); Hemoptysis; Hoarse voice quality; Asthma with acute exacerbation, unspecified asthma severity, unspecified whether persistent; Acute non-recurrent sinusitis, unspecified location; Mild persistent asthma without complication Start: 05-06-2023 Refill Ila burk MD Work Phone: [facility] Comment on above: Refill Request Start: 04-12-2023 Telephone encounter Ila Canales MD Work Phone: [facility] Comment on above: Medication Request ( [facility] ) Start: 04-02-2023 End: 04-02-2023 Patient encounter procedure Aminah R Srinath DIAZ Work Phone: [facility] Comment on above: LRTI (lower respirat ory tract infection) (Primary Dx) Start: 10-12-2022 Refill Ila burk MD Work Phone: [facility] Comment on above: Refill Request Start: 09-21-2022 Telephone encounter Aminah Ferrer ese PA-C Work Phone: [facility] Comment on above: Results Start: 07-25-2022 End: 07-25-2022 Patient encounter procedure Ila Canales MD Work Phone: [facility] Comment on above: Well adult exam (Marge sofiya Dx); Mild persistent asthma without complication; Vaginal bacteriosis; Atypical chest pain; Adjustment disorder with mixed anxiety and depressed mood; Screening for lipid disorders; Obesity, Class I, BMI 30-34.9 Start: 07-25-2022 End: 07-25-2022 Patient encounter status Ila Canales MD Work Phone: [facility] Start: 06-27-2022 Telephone encounter Ginny babin APRN.CNP Work Phone: [facility] Comment on above: Results Start: 06-25-2022 Documentation procedure Mammog jesu Coordinator [facility] Start: 06-25-2022 Letter encounter Mammography Coordinator [facility] Department Start: 12-01-2021 ambulatory Ila burk MD Work Phone: Internal Medicine Main [place] Start: 11-15-2021 End: 11-15-2021 Subsequent hospital visit by physician [facility] (I-Stat) Work Phone: Cat Scan [...] DTaP,Tdap,Td Vaccine (3 - Td or Tdap) [facility] Start: 09-14-2028 Screening for malign ant neoplasm of cervix [facility] Start: 07-02-2025 Annual PCP Team Warehouse Examiner jaen Disease Visit Annual PCP Team Chronic Disease Visit [facility] Start: 02-03-2025 Influenza vaccination [facility] Start: 01-31-2025 End: 01-31-2025 Patient encounter procedure 01/31/2025 11:20 AM EDT Distance [facility] ([facility]) [address] [facility] [address] [place], [place] [id number] Trini Blackburn DO [address] [place] [address] [facility] Internal Medicine [facility] ([facility]) Comment on above: Overall health Start: 09-17-2024 End: 09-17-2024 Patient encounter procedure 09/17/2024 9:00 AM EDT Office Visit OB/Gynecology [address] [place] [id number] Nancy Viera APRN.PREBOARDER [address] [place] [id number] Annual OB/Gynecology Comment on above: Annual Start: 08-21-2024 Annual PCP Team Warehouse Examiner jane Disease Visit Annual PCP Team Chronic Disease Visit [facility] Start: 08-21-2024 Anxiety Screening Anxiety Screening [facility] Start: 08-21-2024 Depression Screening Depression Scre ening [facility] Start: 08-08-2024 End: 10-14-2024 MG Breast Screening [facility] SCREENING Radiology Routine Encounter for screening mammogram for breast cancer Expected: 08/08/2024 (Approximate), Expires: 10/14/2024 [facility] Work Phone: Comment on above: Expected: 08/08/2024 (Approximate), Expires: 10/14/2024 Start: 08-08-2024 Screening for malign ant neoplasm of breast Mammogram Screening [facility] Start: 08-08-2024 End: 08-08-2024 Patient encounter procedure 08/08/2024 7:50 AM EST Appointment Mammogram [address] [place] [id number] Mammogram Start: 02-29-2024 End: 02-29-2024 Patient encounter procedure 02/29/2024 9:20 AM EDT Office Visit Family Practice [address] [place] [address] Ila Canales MD [address] [place] [id number] 6 month follow up Family Practice Comment on above: 6 month follow up Start: 02-14-2024 End: 02-14-2024 Patient encounter procedure 02/14/2024 9:00 PM EDT Office Visit Neurology [address] [place] [address] Palpitations [R00.2]; Atypical chest pain [R07.89]; Systolic click [R01.1]; Daytime hypersomnolence [G47.19] Neurology Comment on above: Palpitations [R00.2] ; Atypical chest pain [R07.89]; Systolic click [R01.1]; Daytime hypersomnolence [G47.19] Start: 02-07-2024 End: 02-07-2024 Patient encounter procedure 02/07/2024 7:30 AM EDT Office Visit OB/Gynecology [address] [place], [place] [id number] Nancy Viera, ASSISTANT FARM OPERATIONS MANAGER.PREBOARDER [address] [place], [place] [id number] wt mgmt f/u OB/Gynecology Comment on above: wt mgmt f/u Start: 02-04-2024 Covid-19 Vaccine ( season) Covid-19 Vaccine () [facility] Start: 02-04-2024 Covid-19 Vaccine ( season) Covid-19 Vaccine () [facility] Start: 02-04-2024 Influenza vaccination [facility] Start: 01-11-2024 Subsequent hospital visit by physician 01/11/2024 8:00 AM EDT Hospital Encounter Cardiology Lab [address] [place] [address] Palpitations [R00.2] Cardiology Lab Comment on above: Palpitations [R00.2] Start: 01-11-2024 End: 01-11-2024 Patient encounter procedure Cardiology Lab Comment on above: Palpitations [R00.2] Start: 12-21-2023 End: 12-21-2023 Patient encounter procedure 12/21/2023 8:00 AM EDT Office Visit OB/Gynecology [address] [place], [place] [id number] Nancy Viera, LALA.PREBOARDER [address] [place], [place] [id number] New wt mgmt consult OB/Gynecology Comment on above: New wt mgmt consult Start: 12-14-2023 End: 12-14-2023 Patient encounter procedure 12/14/2023 3:00 PM EDT Office Visit Cardiology [address], [place] [id number] Juan Manuel Gayle DO [address] [place] [address] Palpitations [R00.2]; Atypical chest pain [R07.89]; Systolic click [R01.1] Cardiology Comment on above: Palpitations [R00.2] ; Atypical chest pain [R07.89]; Systolic click [R01.1] Start: 10-19-2023 End: 10-19-2023 Patient encounter procedure 10/19/2023 1:30 PM EDT Office Visit Podiatry [address] [place], [place] [id number] Benigno Liao [address] [place], [place] [phone] pt getting xray prior to visit Chronic [...] Malaise and fatigue Expected: 09/15/2023, Expires: 12/15/2023 [facility] Work Phone: Comment on above: Expected: 09/15/2023 , Expires: 12/15/2023 Start: 09-15-2023 End: 12-15-2023 CBC panel - Blood by Automated count COMPLETE BLOOD COUNT Lab Routine Class 1 obesity with body mass index (BMI) of 31.0 to 31.9 in adult, unspecified obesity type, unspecified whether serious comorbidity present Screening for deficiency anemia Expected: 09/15/2023, Expires: 12/15/2023 [facility] Work Phone: Comment on above: Expected: 09/15/2023 , Expires: 12/15/2023 Start: 09-15-2023 End: 12-15-2023 Comprehensive metabolic 2000 panel - Serum or Plasma COMPREHENSIVE METABOLIC PANEL Lab Routine Class 1 obesity with body mass index (BMI) of 31.0 to 31.9 in adult, unspecified obesity type, unspecified whether serious comorbidity present Screening for diabetes mellitus Screening for metabolic disorder Expected: 09/15/2023, Expires: 12/15/2023 [facility] Work Phone: Comment on above: Expected: 09/15/2023 , Expires: 12/15/2023 Start: 09-15-2023 End: 12-15-2023 Hemoglobin A1c in Blood HEMOGLOBIN A1C Lab Routine Class 1 obesity with body mass index (BMI) of 31.0 to 31.9 in adult, unspecified obesity type, unspecified whether serious comorbidity present Screening for diabetes mellitus Expected: 09/15/2023, Expires: 12/15/2023 [facility] Work Phone: Comment on above: Expected: 09/15/2023 , Expires: 12/15/2023 Start: 09-15-2023 End: 12-15-2023 Insulin [Units/volume] in Serum or Plasma INSULIN ASSAY BLOOD Lab Routine Class 1 obesity with body mass index (BMI) of 31.0 to 31.9 in adult, unspecified obesity type, unspecified whether serious comorbidity present Screening for diabetes mellitus Expected: 09/15/2023, Expires: 12/15/2023 [facility] Work Phone: Comment on above: Expected: 09/15/2023 , Expires: 12/15/2023 Start: 09-15-2023 End: 12-15-2023 Lipid 1996 panel - Serum or Plasma LIPID PANEL BASIC Lab Routine Class 1 obesity with body mass index (BMI) of 31.0 to 31.9 in adult, unspecified obesity type, unspecified whether serious comorbidity present Screening cholesterol level Expected: 09/15/2023, Expires: 12/15/2023 [facility] Work Phone: Comment on above: Expected: 09/15/2023 , Expires: 12/15/2023 Start: 09-15-2023 End: 12-15-2023 Thyrotropin [Units/volume] in Serum or Plasma THYROID STIMULATING HORMONE Lab Routine Class 1 obesity with body mass index (BMI) of 31.0 to 31.9 in adult, unspecified obesity type, unspecified whether serious comorbidity present Screening for thyroid disorder Malaise and fatigue Expected: 09/15/2023, Expires: 12/15/2023 [facility] Work Phone: Comment on above: Expected: 09/15/2023 , Expires: 12/15/2023 Start: 07-25-2023 ANNUAL PCP TEAM COMPUTER PROJECT MANAGER JANE DISEASE VISIT ANNUAL PCP TEAM CHRONIC DISEASE VISIT [facility] Start: 07-25-2023 COVID-19 VACCINE (3 - Booster for Moderna series) COVID-19 VACCINE (3 - Booster for Moderna series) [facility] Comment on above: Postponed from 10/14 (Declined at this time) Start: 07-25-2023 PNEUMOCOCCAL (2 - PCV) PNEUMOCOCCAL (2 - PCV) [facility] Comment on above: Postponed from 06/17 (Declined at this time) Start: 07-25-2023 Pneumococcal vaccination [facility] Comment on above: Postponed from 06/17 (Declined at this time) Start: 07-25-2023 Urine microalbumin profile [facility] Comment on above: Postponed from 07/12 (Declined at this time) Start: 06-24-[address] [facility] Start: 06-24-2023 Screening for malign ant neoplasm of breast Mammogram Screening [facility] Start: 06-05-2023 Behavioral Health Screening Behavioral Health Screening [facility] Start: 06-05-2023 Depression Assessment Depression Ass essment [facility] Start: 05-30-2023 [facility] Start: 02-08-2023 HPV TESTING HPV TESTING [facility] Start: 02-08-2023 PAP TESTING PAP TESTING [facility] Start: 02-08-2023 Screening for malign ant neoplasm of cervix [facility] Start: 02-03-2023 Covid-19 Vaccine (3 - 2023-24 season) Covid-19 Vaccine () [facility] Start: 02-03-2023 Influenza vaccination [facility] Start: 12-02-2022 Influenza vaccination INFLUENZA (#1) [facility] Comment on above: Postponed from 02/03 (Declined at this time) Start: 07-25-2022 End: 09-24-2022 CBC panel - Blood by Automated count CBC Lab Routine Atypical chest pain Expected: 07/25/2022, Expires: 09/24/2022 [facility] Work Phone: Comment on above: Expected: 07/25/2022 , Expires: 09/24/2022 Start: 07-25-2022 End: 09-24-2022 Comprehensive metabolic 2000 panel - Serum or Plasma COMP METABOLIC PANEL Lab Routine Atypical chest pain Expected: 07/25/2022, Expires: 09/24/2022 [facility] Work Phone: Comment on above: Expected: 07/25/2022 , Expires: 09/24/2022 Start: 07-25-2022 End: 09-24-2022 Lipid 1996 panel - Serum or Plasma LIPID PANEL BASIC Lab Routine Screening for lipid disorders Expected: 07/25/2022, Expires: 09/24/2022 [facility] Work Phone: Comment on above: Expected: 07/25/2022 , Expires: 09/24/2022 Start: 07-25-2022 End: 09-24-2022 Thyrotropin [Units/volume] in Serum or Plasma TSH BLD Lab Routine Atypical chest pain Adjustment disorder with mixed anxiety and depressed mood Expected: 07/25/2022, Expires: 09/24/2022 [facility] Work Phone: Comment on above: Expected: 07/25/2022 , Expires: 09/24/2022 Start: 07-01-2022 Adult depression screening assessment DEPRESSION SCREENING [facility] Start: 07-01-2022 ANNUAL PCP TEAM COMPUTER PROJECT MANAGER JANE DISEASE VISIT ANNUAL PCP TEAM CHRONIC DISEASE VISIT [facility] Start: 06-05-2022 DEPRESSION ASSESSMENT DEPRESSION ASS ESSMENT [facility] Start: 02-03-2022 Influenza vaccination [facility] Start: 01-19-2022 COVID-19 VACCINE (3 - Booster for Moderna series) COVID-19 VACCINE (3 - Booster for Moderna series) [facility] Start: 10-14-2021 COVID-19 VACCINE (3 - Booster for Moderna series) COVID-19 VACCINE (3 - Booster for Moderna series) [facility] Start: 2020 Mammography MAMMOGRAM [facility] Start: 07-12-2020 Urine microalbumin profile [facility] Start: 06-17-2012 PNEUMOCOCCAL (2 - PCV) PNEUMOCOCCAL (2 - PCV) [facility] Start: 09-13-2007 HPV Vaccine (1 - 3-d ose SCDM series) HPV Vaccine (1 - 3-dose SCDM series) [facility] Start: 09-13-1999 Hepatitis B Vaccine (1 of 3 - 19+ 3-dose series) Hepatitis B Vaccine (1 of 3 - 19+ 3-dose series) [facility] Start: 1998 Anxiety Screening Anxiety Screening [facility] Start: 1998 Depression Screening Depression Scre ening [facility] Start: 1998 SPIROMETRY SPIROMETRY [facility] Start: 1980 HEPATITIS B (1 of 3 - 3-dose series) HEPATITIS B (1 of 3 - 3-dose series) [facility] Start: 1980 Hepatitis B Vaccine (1 of 3 - 3-dose series) Hepatitis B Vaccine (1 of 3 - 3-dose series) [facility] BACTERIAL VAGINOSIS NAAT BACTERI AL VAGINOSIS NAAT Lab Routine Vaginal discharge Abdominal bloating 09/15/2023 12:22 PM EDT [facility] Work Phone: ROXANNE/TRICHOMONAS NAAT ROXANNE /TRICHOMONAS NAAT Lab Routine Vaginal discharge Abdominal bloating 09/15/2023 12:22 PM EDT [facility] Work Phone: Chlamydia trachomatis+Neisseria gonorrhoeae DNA [Presence] in Unspecified specimen by VIV with probe detection GONORRHEA/CHLAMYDIA NAAT Lab Routine Screen for STD (sexually transmitted disease) 09/15/2023 12:22 PM EDT [facility] Work Phone: End: 07-27-2023 Diagnostic mammography computer-aided detcj uni [facility] Radiology Routine Inconclusive mammogram 1 Occurrences starting 06/27/2022 until 07/27/2023 [facility] Work Phone: Comment on above: 1 Occurrences starti ng 06/27/2022 until 07/27/2023 ECG COMPLETE [facility] Work Phone: Comment on above: Ordered: 07/25/2022 End: 12-13-2024 Echocardiography ECHO Cardiology Routine Palpitations Atypical chest pain Systolic click Daytime hypersomnolence 1 Occurrences starting 12/14/2023 until 12/13/2024 [facility] Work Phone: Comment on above: 1 Occurrences starti ng 12/14/2023 until 12/13/2024 End: 12-13-2024 EXERCISE STRESS ECG (WITHOUT IMAGING) EXERCISE STRESS ECG (WITHOUT IMAGING) Cardiology Routine Palpitations Atypical chest pain Systolic click Daytime hypersomnolence 1 Occurrences starting 12/14/2023 until 12/13/[address] [facility] Comment on above: 1 Occurrences starti ng 12/14/2023 until 12/13/2024 End: 08-31-2024 MG Breast Screening [facility] S[facility] Radiology Routine Encounter for screening mammogram for breast cancer 1 Occurrences starting 08/02/2023 until 08/31/2024 [facility] Work Phone: Comment on above: 1 Occurrences starti ng 08/02/2023 until 08/31/2024 MG Breast Screening [facility] SCREENIN G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 1980 Female Self [id number] [birth year] [id number] [address] Estrada Beck documented in this encounter [facility] 01-10-2024 Telephone encounter Note Spoke to pt regarding reminder and instructions for stress test tomorrow. This included where to check in, length of test and no caffeine for 12 hours prior to test. [facility] 01-10-2024 Miscellaneous Notes Spoke to pt regarding reminder and instructions for stress test tomorrow. This included where to check in, length of test and no caffeine for 12 hours prior to test. documented in this encounter 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 Spencer Mitchell MA 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 Spencer Mitchell MA Omeprazole prescribed and esomeprazole discontinued. Nancy Viera APRN.CNP Received prior authorization from patients pharmacy. Omeprazole delayed release capsules or Generic pantoprazole delayed release tablets are preferred. Are we able to use one of these options instead? Spencer Mitchell MA documented in this encounter [facility] 12-21-2023 Telephone encounter Note Omeprazole prescribed and esomeprazole discontinued. Nancy Viera APRN.CNP [facility] 12-21-2023 Telephone encounter Note Received prior authorization from patients pharmacy. Omeprazole delayed release capsules or Generic pantoprazole delayed release tablets are preferred. Are we able to use one of these options instead? Spencer Mitchell MA [facility] 12-21-2023 Instructions Nancy Viera APRN.PREBOARDER - 12/21/2023 7:50 AM EDT Nexium generic [...] slots. This should not be done on [facility] as you will not be scheduled [...] that affects nearly one-third of the adult [place] population (approximately 60 million). The number of overweight and obese Americans has continued to increase since 1960, a trend that is not slowing down. Today, 64.5 percent of adult Americans (about 127 million) are categorized as being overweight or obese. Each year, obesity causes at least 300,000 excess deaths in the [place] and healthcare costs of Citizen [place] adults with obesity amount to approximately $100 [...] the gallbladder, breast, uterus, cervix, or ovaries https://my.[facility].org/healt h/diseases/45863-nyhbvs-frjmnocxsa-l atient-education - Eat primarily whole foods. Limit [...] Is metformin a wonder drug? - [facility] Common side effects of this medication include [...] associated with weight loss (RafaJodiereivan, 2019). https://ro.co/health-guide/wellbutri e-wss-wvpwrm-loss/ Bupropion: Patient drug information Access [employer] Online for additional drug information, tools, and databases. Copyright 2976-9374 [employer]. All rights reserved. Contributor Disclosures (For additional [...] much, and when it happened. Last Reviewed [id number] Consumer Information Use and Disclaimer This generalized [...] or approved for treating a specific patient. [employer]. and its affiliates disclaim any warranty or liability relating to this information or the use thereof. The use of this information is governed by the Terms of Use, available at https://www.woltersCasabuer.com/en/kno w/ptrsljga-nolulmykclscf-iqtcg. 2021 [employer]. and its affiliates and/or licensors. All rights reserved. documented in this encounter 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 Difficulty losing weight? Y recently History of weight loss with regain? Y - Last Wt 12/21/23 : 88 kg (194 lb) 5% weight loss = 184 lbs, 10% weight loss = 175 lbs [place] body weight: 57 kg (125 lb 10.6 [...] 3/week, OJ, tea with honey Bedtime - 5088-4531 Quality of diet: 24hr recall suggests unhealthy diet. Characterization of diet:Unstructured, unhealthy snacking, excessive cravings, evening snacking, and increased consumption of sugar sweetened beverages. Hearing Aid Mechanic of impaired eating habits:excessive hunger, lack of satiety, mindlessness , boredom, emotion, and stress Eating Disorder no Cravings: sweet, salty and crunchy Sleep Duration: 5 -10 hours . TITO NO - breeding manager ordered a sleep study, needs to schedule; CPAP NO Stress Stress:yes , Cause:Work, Financial, personal Obesity Related Comorbidities: Prior Weight Loss Surgery:No PAST MEDICAL HISTORY Diagnosis Date Human papillomavirus in conditions classified elsewhere and of unspecified site Menorrhagia resolved with ablation Migraines Unspecified asthma(493.90) PAST SURGICAL HISTORY Procedure Laterality Date ESSURE 2011 OFFICE ENDOMETRIAL ABLATION 2012 UNSPECIFIED ORAL SURGERY PROCEDURE, BY REPORT [place] teeth FAMILY HISTORY Problem Relation Age of [...] sedentary, second job active. 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 - BUPROPION HCL SR 150 [...] training and cardiovascular exercise is the best halfway plan. An overall goal of 150-200 minutes [...] which included preparing to see the patient, [id number] patient care, completing clinical documentation, obtaining and/or reviewing separately obtained history, performing a medically appropriate examination, counseling and educating the patient/family/caregiver, and ordering medications, tests, or procedures. documented in this encounter [facility] 12-14-2023 Nurse Note EVENT MONITOR DISPOSABLE PATCH INSTRUCTIONS Patient Name: Abdoul Vazquez [facility] Number: [id number] Skin prepped and cleansed with alcohol Patch secured to prepped area Monitor Activated Serial #: [id number] Patient Instructed: Prescribed order timeframe Bathing guidelines Usage of event button and diary documentation Return of monitor at the end of prescribed order Call with problems [phone] or [phone] ext. [phone] Patient expresses a good understanding of instructions Laura Duncan MA [facility] 12-14-2023 Nurse Note EVENT MONITOR DISPOSABLE PATCH INSTRUCTIONS Patient Name: Abdoul Faith Clinic Number: [id number] Skin prepped and cleansed with alcohol Patch secured to prepped area Monitor Activated Serial #: [id number] Patient Instructed: Prescribed order timeframe Bathing guidelines Usage of event button and diary documentation Return of monitor at the end of prescribed order Call with problems [phone] or [phone] ext. [phone] Patient expresses a good understanding of instructions Laura Duncan MA documented in this encounter [facility] 12-14-2023 Telephone encounter Note Please call Pt to schedule Echo and Stress ECG ordered by Dr Gayle today. [facility] 12-14-2023 Miscellaneous Notes Please call Pt to schedule Echo and Stress ECG ordered by Dr Gayle today. documented in this encounter [facility] 12-14-2023 Note HNO ID: [id number] Author: JUAN MANUEL GAYLE, DO Service: ? Author Type: Physician Type: Progress Notes Filed: 12/14/2023 17:00 Note Text: [facility] SECTION OF [facility]IONAL CARDIOLOGY [facility] OUTPATIENT VISIT DATE December 14, 2023 PRIMARY CARE PHYSICIAN: Ial Canales [address] [place] [address] [place] [id number] HISTORY OF PRESENT ILLNESS: Ms. Faith is [...] the parents. 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 She is a non-smoker, social drinker. She [...] provokable response and possible dysrhythmia 3. 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 The patient may however take this off [...] for leg swelling. (more content not included)... [facility] 12-14-2023 History of Present illness Narrative Images from the original note were not included. [facility] SECTION [facility]AL CARDIOLOGY [facility] OUTPATIENT VISIT DATE December 14, 2023 PRIMARY CARE PHYSICIAN: Ila Canales [address] [place] [address] [place] [id number] HISTORY OF PRESENT ILLNESS: Ms. Faith is [...] the parents. 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 She is a non-smoker, social drinker. She [...] provokable response and possible dysrhythmia 3. 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 The patient may however take this off [...] 2011 UNSPECIFIED ORAL SURGERY PROCEDURE, BY REPORT [place] teeth Social History Tobacco Use Smoking status: [...] day. Juan Manuel Gayle, , FACC, FAC Radio Station Manager, [facility] Ambulatory Cardiology Radio Station Manager, [facility] Cardiac Rehabilitation Radio Station Manager, [facility] Cardiac Rehabilitation Radio Station Manager, [facility] Congest[facility] Radio Station Manager, [facility] Ambulatory Cardiology Clinical Cage Cashier Profressor of Medicine, [facility] Staff Canal Tender, Erick Vanegas Department of Cardiovascular Medicine/Heart and Vascular [place], [facility] Please note: This note has been produced using speech recognition software and may contain errors related to that system including joann, punctuation, spelling, words, gender and phrases that may be inappropriate. documented in this encounter [facility] 11-22-2023 Telephone encounter Note Pharmacy verified in [facility] Patient has been identified by name and [...] 09/18/2023 5.1 Please advise. ANJU RUIZ MA [facility] 11-22-2023 Miscellaneous Notes Pharmacy verified in [facility] Patient has been identified by name and [...] ANJU RUIZ MA documented in this encounter [facility] 10-04-2023 Telephone encounter Note 2nd attempt,left VM [facility] 10-04-2023 Miscellaneous Notes 2nd attempt,left VM Dr. Fernandes appfady cancelled and new appt in [place] scheduled. 1st attempt to notify pt, sent MC message and LVM. documented in this encounter [facility] 10-02-[address] Dena galan cancelled and new appt in [place] scheduled. 1st attempt to notify pt, sent MC message and LVM. [facility] 09-15-2023 Instructions Nancy Viera APRN.PREBOARDER - 09/15/2023 12:02 PM EDT - Eat [...] immediately a meal. documented in this encounter [facility] 09-15-2023 History of Present illness Narrative Skiver Uppers Or Linings offered: Patient declines. Abdoul is a 43 [...] L3 SAB0 IAB0 Ectopic0 Multiple0 Live Births3 Staff Electrical Engineer History LMP: 08/01/2023 (Approximate), Ablation Age at Menarche: Age at First : Age at Menopause: Staff Electrical Engineer History Comments: Sexual Activity: Yes; Male; essure- ablation Contraception: Other PAST MEDICAL HISTORY Diagnosis Date Human papillomavirus in conditions classified elsewhere and of unspecified site Menorrhagia resolved with ablation Unspecified asthma(493.90) PAST SURGICAL HISTORY Procedure Laterality Date ESSURE 2012 OFFICE ENDOMETRIAL ABLATION 2011 UNSPECIFIED ORAL SURGERY PROCEDURE, BY REPORT [place] FAMILY HISTORY Problem Relation Age of [...] external genitalia normal, normal Bartholin's glands, urethra, [place]'s glands, no vulvar lesions, no cervical lesions, [...] - THYROID STIMULATING HORMONE - CONSULT TO [facility] WEIGHT MANAGEMENT PROGRAM - Eat primarily [...] 4 - Moderate documented in this encounter [facility] 08-22-2023 History of Present illness Narrative CHIEF [...] 2011 UNSPECIFIED ORAL SURGERY PROCEDURE, BY REPORT [place] ALLERGIES Augmentin [Amoxicillin-Pot Clavulanate] and Seasonal [...] VACCINE, AGE 7+ YR, 5 LF TETANUS ([facility]) Requested Prescriptions Signed Prescriptions Disp Refills albuterol [...] 2023 4:33 PM documented in this encounter [facility] 08-10-2023 Miscellaneous Notes August 10, 2023 PID: [id number] Abdoul Faith [address] [place], [place] [address] Dear Ms. Faith, We are pleased to [...] report will be kept on file at [facility] as part of your permanent medical record and are available for your continuing care. Thank you for allowing us to help in meeting your health care needs. Sincerely, Dr. Flores Interpreting Radiologist [facility] (Normal over 40) documented in this encounter [facility] 08-09-2023 History of Present illness Narrative Radiology [...] PATIENT PRESENTS WITH AN IMPLANTABLE OR ATTACHED SOIL TECHNOLOGIST: No RADIOLOGY DEPARTMENT: Mammography PERIPHERAL IV DATA: Not applicable SIGNED BY: Abdoul Garcia [employer] Shauna August 09, 2023 1:39 PM documented in this encounter [facility] 05-22-2023 History of Present illness Narrative Radiology [...] 2023 10:16 AM documented in this encounter [facility] 05-20-2023 History of Present illness Narrative Patient [...] César Fernandez MD documented in this encounter [facility] 05-15-2023 Miscellaneous Notes Called patient. Verified name and date of . Scheduled appointment. Jennifer Doe LPN Images from the original note were not included. Dilip Loving PA-C [facility] Urology Pool 3 days ago Not seen in over a year, need visit and urine testing documented in this encounter [facility] 05-08-2023 Miscellaneous Notes Pharmacy verified in [facility] Patient has been identified by name and [...] advise. Reina Null documented in this encounter [facility] 04-12-2023 Miscellaneous Notes Pharmacy verified in [facility] Patient has been identified by name and [...] Michelle Brown LPN documented in this encounter [facility] 04-02-2023 History of Present illness Narrative This note was created using MemberPassriter. Subjective Abdoul Faith is a 42 year [...] No diarrhea or vomiting. She used multiple dzyd-tor-jfoujac cough and cold medicines without relief. She [...] 2012 UNSPECIFIED ORAL SURGERY PROCEDURE, BY REPORT [place] FAMILY HISTORY Problem Relation Age of [...] Aminah Yo PA-C documented in this encounter [facility] 10-13-2022 Miscellaneous Notes Patient phones requesting refills as follows: LAST REFILL 07/25/22 LAST OV 07/25/22 Requested Prescriptions Pending Prescriptions Disp Refills albuterol HFA (VENTOLIN HFA) 90 mcg/actuation inhaler 18 g 0 Sig: Inhale 2 Puffs as instructed every 4 hours as needed for wheezing/shortness of breath. Please review and advise. Chloe Waddell LPN documented in this encounter [facility] 09-21-2022 Miscellaneous Notes Spoke with patient. Given [...] blood in urine. documented in this encounter [facility] 07-25-2022 History of Present illness Narrative Images [...] 2012 UNSPECIFIED ORAL SURGERY PROCEDURE, BY REPORT [place] FAMILY HISTORY Problem Relation Age of [...] 2022 5:16 PM documented in this encounter [facility] 06-29-2022 Miscellaneous Notes Third attempt to reach; called patient at [phone]. Left message on voicemail for patient to return call or check MyChart for message from provider. No contact made after 3 attempts. MyChart message sent. Called patient at [phone], left message on voicemail for patient to [...] Ginny Gongora APRN.SIDNEY documented in this encounter [facility] 06-25-2022 Miscellaneous Notes June 27, 2022 PID: [id number] Abdoul Faith [address] [place] [address] Dear Ms. Faith, Your recent breast imaging [...] who ordered/prescribed your screening mammogram: Please call [phone] or EXT: [phone] to schedule an appointment for your additional [...] and reports are kept on file at [facility] as part of your permanent medical record, and are available for your continuing care. Thank you for allowing us to help in meeting your health care needs. Sincerely, Dr. Escobedo Interpreting Radiologist [facility] (Additional imaging) documented in this encounter [facility] 11-15-2021 History of Present illness Narrative Radiology [...] summary Note Date/Time March 13, 2025 12:58pm [facility] Medical Records Department [address] [place] [address] Emergency Department Summary 03/13/25 MR#: [id number] Acct: [id number] Name: ABDOUL FAITH Rep #:[id number] : [...] 71.4 H Lymph % (Auto) 17.5 L [place] % (Auto) 6.3 Eos % (Auto) 4.0 [...] Sl. Cloudy Urine pH 6.0 Ur Specific [place] 1.020 Urine Protein 30 H Urine Glucose [...] right kidney. Normal appendix Cholelithiasis Reading Location: [facility] Discharge Plan Triage Chief Complaint: Abd Pain [...] Dr. Edilma Ritter of urology. Print Language: Mongolian Disposition Disposition: Home, Self Care What to do if you have Problems For any increased pain, shortness of breath, bleeding, nausea or vomiting, chestpain, or any unexpected problems, contact your Primary Care Provider. Call [facility] ([phone]) or report to the closest Emergency Room. Call 911 if necessary. 03/13/25 1712 <Electronically signed by Derek Sanchez MD> Cosigner Signature (if applicable): CC: Dr. Rj Canales MD ~ Signed [facility] Work Phone: Evaluation note* Diagnosis Recurrent UTI (urinary tract infection) Urinary tract infection, site not specified [facility] Diagnosis Encounter for screening mammogram for breast cancer [facility] Diagnosis Inconclusive mammogram- Primary [facility] Diagnosis Well adult exam- Primary Routine general medical examination at a health care facility Mild persistent asthma without complication Unspecified asthma Vaginal bacteriosis Vaginitis and vulvovaginitis, unspecified Atypical chest pain Other chest pain Adjustment disorder with mixed anxiety and depressed mood Screening for lipid disorders Obesity, Class I, BMI 30-34.9 Obesity, unspecified [facility] Diagnosis Mild persistent asthma without complication Unspecified asthma [facility] Diagnosis LRTI (lower respiratory tract infection)- Primary Other diseases of respiratory system, not elsewhere classified [facility] Diagnosis Mild persistent asthma without complication Unspecified asthma [facility] Diagnosis Recurrent UTI (urinary tract infection) Urinary tract infection, site not specified [facility] Diagnosis Subacute cough- Primary Cough Hemoptysis Hemoptysis, unspecified Hoarse voice quality Dysphonia Asthma with acute exacerbation, unspecified asthma severity, unspecified whether persistent Acute non-recurrent sinusitis, unspecified location Mild persistent asthma without complication Unspecified asthma documented [facility] noteNo assessment information availableWMemorial [facility] Work Phone: Evaluation note* Diagnosis Encounter for screening mammogram for breast cancer [facility] Diagnosis Well adult exam- Primary Routine general medical examination at a health care facility Mild persistent asthma without complication Unspecified asthma Neck pain on left side Cervicalgia Cervicogenic headache Headache Palpitations Atypical chest pain Other chest pain Systolic click Undiagnosed cardiac murmurs Chronic foot pain, left Tetanus-diphtheria (Td) vaccination Need for prophylactic vaccination with tetanus-diphtheria (Td) documented [facility] Diagnosis Encounter for gynecological examination (general) [...] serious comorbidity present [facility] Diagnosis Palpitations- Primary Atypical chest pain Other chest pain Systolic click Undiagnosed cardiac murmurs FINLEY (dyspnea on exertion) Other dyspnea and respiratory abnormality Daytime hypersomnolence Hypersomnia, unspecified [facility] Diagnosis Gastroesophageal reflux disease, unspecified whether [...] serious comorbidity present [facility] Diagnosis Gastroesophageal reflux disease, unspecified whether esophagitis present- Primary documented [facility]* Diagnosis Gastroesophageal reflux disease, unspecified whether esophagitis present [facility]* Diagnosis Mild persistent asthma without complication Unspecified asthma [facility] Diagnosis Subacute cough Cough Hemoptysis Hemoptysis, unspecified documented [facility]* Diagnosis Depression, unspecified depression type- Primary Mild persistent asthma without complication Unspecified asthma Obesity (BMI 30.0-34.9) Obesity, unspecified Palpitations Lightheadedness Dizziness and giddiness documented in this [facility]* Diagnosis Mild persistent asthma without complication Unspecified asthma documented [facility]* Diagnosis Mild persistent asthma without complication- Primary Unspecified asthma documented [facility]* Diagnosis Depression, unspecified depression type documented [facility]* Diagnosis Mild persistent asthma without complication (HCC) Unspecified asthma documented in this encounter [facility] Discharge instructionsAdditional Instructions You have a [...] and follow-up with Dr. Edilma Ritter of urology.[facility] Work Phone: Reason for referral (narrative)* Diagnostic Procedure Only (Routine) - Pending Review Specialty Diagnoses / Procedures Referred By Renzo t Referred To Contact [facility] Diagnoses Encounter for screening mammogram for breast cancer Procedures PERCY SCREENING SCREENING MAMMOGRAPHY BI 2-VIEW BREAST INC Ila He MD [address] [place] [address] [place] [id number] [facility] [address] [place] [phone] Referral ID Status Reason Start Date Expiration Date Visits Requested Visits Authorized [id number] Pending Review Auto-Generat ed Referral 12/01/2021 12/31/2022 1 1 [facility] for referral (narrative)* Diagnostic Procedure Only (Routine) - Authorized Specialty Diagnoses / Procedures Referred By Contac t Referred To Contact [facility] Diagnoses Inconclusive mammogram Procedures US BREAST LTD LT US BREAST UNI REAL TIME WITH IMAGE LIMITED Ginny Gongora APRN.CNP [address] [place] [address] [facility] [address] [place] [address] Referral ID Status Reason Start Date Expiration Date Visits Requested Visits Authorized [id number] Authorized Auto-Generat ed Referral 06/27/2022 07/27/2023 1 1 * Diagnostic Procedure Only (Routine) - Authorized Specialty Diagnoses / Procedures [facility] To [facility] Diagnoses Inconclusive mammogram Procedures PERCY DIAGNOSTIC LT DIAGNOSTIC MAMMOGRAPHY COMPUTER-AIDED DETCJ UNI Ginny Gongora APRN.CNP [address] [place] [address] [facility] [address] [place] [address] Referral ID Status Reason Start Date Expiration Date Visits Requested Visits Authorized [id number] Authorized Auto-Generat ed Referral 06/27/2022 07/27/2023 1 1 [facility] for referral (narrative)* Outpatient Procedure (Routine) - Closed Specialty Diagnoses / Procedures [facility] Diagnoses Atypical chest pain Procedures ECG COMPLETE ECG ROUTINE ECG W/LEAST 12 LDS W/I&R Ila Canales MD [address] [facility] [place] [id number] [facility] [place] [address] [place] [address] Referral ID Status Reason Start Date Expiration Date V isits Requested Visits Authorized [id number] Closed Auto-Generate d Referral 07/25/2022 07/25/2023 1 1 [facility] for referral (narrative)* Diagnostic Procedure Only (Routine) - Authorized Specialty Diagnoses / Procedures Referred By Renzo t Referred To Contact [facility] Diagnoses Encounter for screening mammogram for breast cancer Procedures PERCY SCREENING SCREENING MAMMOGRAPHY BI 2-VIEW BREAST INC CAD Javon, Ila Olivia MD [address] [place] [address] [place] [id number] [facility] [address] [place] [address] Referral ID Status Reason Start Date Expiration Date Visits Requested Visits Authorized [id number] Authorized Auto-Generat ed Referral 08/02/2023 08/31/2024 1 1 [facility] for referral (narrative)* Outpatient Procedure (Routine) - New Request Specialty Diagnoses / Procedures Referred By Renzo shrestha Referred To Contact [facility] [place] Diagnoses Palpitations Atypical chest pain Systolic click Daytime hypersomnolence Procedures EXERCISE STRESS ECG (WITHOUT IMAGING) Juan Manuel Gayle DO [address] [place] [address] [address] Referral ID Status Reason Start Date Expiration Date Visits Requested Visits Authorized [id number] New Request Auto-Generat ed Referral 12/14/2023 12/13/2024 1 1 * Outpatient Procedure (Routine) - New Request Specialty Diagnoses / Procedures Referred By Renzo shrestha Referred To Contact [facility] Diagnoses Palpitations Atypical chest pain Systolic click Daytime hypersomnolence Procedures ECHO ECHO TTHRC R-T 2D W/WOM-MODE COMPL SPEC&COLR D Juan Manuel Gayle DO [address] [place] [address] [address] Referral ID Status Reason Start Date Expiration Date Visits Requested Visits Authorized [id number] New Request Auto-Generat ed Referral 12/14/2023 12/13/20[address] [address] (narrative)No reason for referral information availableWMemorial Health [facility] Work Phone: Reason for visit Narrative* Diagnostic Procedure Only (Routine) - Closed Specialty Diagnoses / Procedures Referred By Renzo shrestha Referred To Contact [facility] Diagnoses Encounter for screening mammogram for breast cancer Procedures PERCY SCREENING SCREENING MAMMOGRAPHY BI 2-VIEW BREAST INC Ila He MD [address] [place] [address] [facility] [address] [place] [address] Referral ID Status Reason Start Date Expiration Date V isits Requested Visits Authorized [id number] Closed Auto-Generate d Referral 08/02/2023 08/31/2024 [address] [facility] Summary Purpose Family History No Family History Records Found Relationship Condition Age at Onset Recorded Date/T rodney father Asthma Unknown Obesity Unknown grandfather Chronic obstructive pulmonary disease Unk nown son Asthma Unknown mother Obesity Unknown Advance Directives No Advanced Directives Records Found Advance Directive Response Recorded Date/ Time Living Will No May 30 023 9:09am Power of Clinical Evaluator No May 30, 2023 9:09am Advance Directive Response Recorded Date/ Time Do you have a Healthcare Power of Clinical Evaluator? No March 13, 2025 9:31am Reason for Referral Specialty Diagnoses / Procedures Referred By Renzo shretsha Referred To Contact CT IMAGING Diagnoses Recurrent UTI (urinary tract infection) Procedures CT FLANK WO IVCON CT ABD & PELVIS W/O CONTRAST Dilip Loving PA-C [address] [place] [address] Ct Imaging Referral ID Status Reason Start Date Expiration Date V isits Requested Visits Authorized [id number] Closed Auto-Generate d Referral 11/05/2021 12/20/2021 1 1 Specialty Diagnoses / Procedures Referred By Renzo shrestha Referred To Contact Diagnoses Mild persistent asthma without complication Ginny Gongora, LALA.PREBOARDER [address] [place] [address] Referral ID Status Reason Start Date Expiration Date V isits Requested Visits Authorized [id number] Pending Review 1 1 Specialty Diagnoses / Procedures Referred By Contac t Referred To Contact Diagnoses Mild persistent asthma without complication César Fernandez MD [address] [place] [address] Referral ID Status Reason Start Date Expiration Date Visits Re quested Visits Authorized [id number] Closed 1 1 Specialty Diagnoses / Procedures Referred By Contac t Referred To Contact Neurology Diagnoses Neck pain on left side Cervicogenic headache Procedures CONSULT TO NEUROLOGY OFFICE/OUTPATIENT [facility] 60 MINUTES Ila Canales MD [address] [place] [address] Referral ID Status Reason Start Date Expiration Date Visits Requested Visits Authorized [id number] Authorized PCP Requested Referral 08/22/2023 08/21/2024 1 1 Specialty Diagnoses / Procedures Referred By Contac t Referred To Contact Cardiology Diagnoses Palpitations Atypical chest pain Systolic click Procedures CONSULT TO CARDIOLOGY OFFICE/OUTPATIENT [facility] 60 MINUTES Ila Canales MD [address] [facility] [place] [address] Referral ID Status Reason Start Date Expiration Date Visits Requested Visits Authorized [id number] Authorized PCP Requested Referral 08/22/2023 08/21/2024 1 1 Specialty Diagnoses / Procedures Referred By Contac t Referred To Contact XR IMAGING Diagnoses Chronic foot pain, left Procedures XR FOOT GENERAL 3V AP/LAT/OBL LEFT RADEX FOOT COMPLETE MINIMUM 3 VIEWS Ila Canales MD [address] [facility] [place] [id number] [place] [id number] Referral ID Status Reason Start Date Expiration Date Visits Requested Visits Authorized [id number] Pending Review Auto-Generat ed Referral 08/22/2023 09/20/2024 1 1 Specialty Diagnoses / Procedures Referred By Contac t Referred To Contact Podiatry Diagnoses Chronic foot pain, left Procedures CONSULT TO PODIATRY OFFICE/OUTPATIENT [facility] 60 MINUTES Ila Canales MD [address] [facility] [place] [id number] Referral ID Status Reason Start Date Expiration Date Visits Requested Visits Authorized [id number] Authorized PCP Requested Referral 08/22/2023 08/21/2024 1 1 Specialty Diagnoses / Procedures Referred By Contac t Referred To Contact GENERATION TECHNOLOGIST Diagnoses Class 1 obesity with body mass index (BMI) of 31.0 to 31.9 in adult, unspecified obesity type, unspecified whether serious comorbidity present Procedures CONSULT TO [facility] WEIGHT MANAGEMENT PROGRAM OFFICE/OUTPATIENT [facility] 60 MINUTES Nancy Viera APRN.PREBOARDER [address] [place] [address] Nancy Viera APRN.PREBOARDER [address] [place] [address] Referral ID Status Reason Start Date Expiration Date Visits Requested Visits Authorized [id number] Authorized PCP Requested Referral Auto-Generate d Referral 09/15/2023 09/14/2024 1 1 Specialty Diagnoses / Procedures Referred By Antelmoac t Referred To Contact [facility] Diagnoses Encounter for screening mammogram for breast cancer Procedures PERCY SCREENING SCREENING MAMMOGRAPHY BI 2-VIEW BREAST INC CAD Nancy Viera APRN.PREBOARDER [address] [place] [address] [facility] [address] [place] [address] Referral ID Status Reason Start Date Expiration Date Visits Requested Visits Authorized [id number] Pending Review Auto-Generat ed Referral 08/08/2024 10/14/2024 1 1 Specialty Diagnoses / Procedures Referred By Contac t Referred To Contact Cardiology Diagnoses Palpitations Lightheadedness Procedures CONSULT TO CARDIOLOGY OFFICE/OUTPATIENT [facility] 60 MINUTES Benigno Laguerre, DO [address] [facility] [address] [place] [address] Referral ID Status Reason Start Date Expiration Date Visits Requested Visits Authorized [id number] Pending Review PCP Requested Referral 07/02/2024 07/02/2025 1 1 Specialty Diagnoses / Procedures Referred By Contac t [facility] Diagnoses Mild persistent asthma without complication Procedures SPIROMETRY - BASELINE AND POST DILATOR BRNCDILAT RSPSE SPMTRY PRE&POST-BRNCDILAT ADMBenigno Oconnor, DO 1 [facility] 5th [place] [address] Respiratory [place] [address] [place] [address] Referral ID Status Reason Start Date Expiration Date Visits Requested Visits Authorized [id number] New Request Auto-Generat ed Referral 07/02/2024 08/01/2025 1 1 Chief Complaint and Reason for Visit Chief Complaint SHORTNESS OF BREATH Chief Complaint Admit Date pelvic pain March 13, 2025 9: 24am Additional Source Comments INFORMATION SOURCE (unrecogn ized section and content) DATE CREATED AUTHOR 12/23/2019 [facility] DATE CREATED AUTHOR AUTHOR'S ORGANIZ ATION 01/12/2024 [facility] DATE CREATED AUTHOR AUTHOR'S ORGANIZ ATION 11/25/2024 [facility] DATE CREATED AUTHOR AUTHOR'S ORGANIZ ATION 03/29/2025 [facility] DATE CREATED AUTHOR AUTHOR'S ORGANIZ ATION 03/30/2025 [facility] Source Comments (unrecognize d section and content) In the event this informatio n is protected by the Federal Confidentiality of Alcohol and Drug Abuse Patient Records regulations: The Federal rules restrict any use of the information to criminally investigate or prosecute any alcohol or drug abuse patient.[facility] HospitalIn the event this information is protected by the Federal Confidentiality of Alcohol and Drug Abuse Patient Records regulations: The Federal rules restrict any use of the information to criminally investigate or prosecute any alcohol or drug abuse patient.[facility] HospitalIn the event this information is protected by the Federal Confidentiality of Alcohol and Drug Abuse Patient Records regulations: The Federal rules restrict any use of the information to criminally investigate or prosecute any alcohol or drug abuse patient.[facility] HospitalIn the event this information is protected by the Federal Confidentiality of Alcohol and Drug Abuse Patient Records regulations: The Federal rules restrict any use of the information to criminally investigate or prosecute any alcohol or drug abuse patient.[facility] HospitalIn the event this information is protected by the Federal Confidentiality of Alcohol and Drug Abuse Patient Records regulations: The Federal rules restrict any use of the information to criminally investigate or prosecute any alcohol or drug abuse patient.[facility] HospitalIn the event this information is protected by the Federal Confidentiality of Alcohol and Drug Abuse Patient Records regulations: The Federal rules restrict any use of the information to criminally investigate or prosecute any alcohol or drug abuse patient.[facility] HospitalIn the event this information is protected by the Federal Confidentiality of Alcohol and Drug Abuse Patient Records regulations: The Federal rules restrict any use of the information to criminally investigate or prosecute any alcohol or drug abuse patient.[facility] HospitalIn the event this information is protected by the Federal Confidentiality of Alcohol and Drug Abuse Patient Records regulations: The Federal rules restrict any use of the information to criminally investigate or prosecute any alcohol or drug abuse patient.[facility] HospitalIn the event this information is protected by the Federal Confidentiality of Alcohol and Drug Abuse Patient Records regulations: The Federal rules restrict any use of the information to criminally investigate or prosecute any alcohol or drug abuse patient.[facility] HospitalIn the event this information is protected by the Federal Confidentiality of Alcohol and Drug Abuse Patient Records regulations: The Federal rules restrict any use of the information to criminally investigate or prosecute any alcohol or drug abuse patient.[facility] HospitalIn the event this information is protected by the Federal Confidentiality of Alcohol and Drug Abuse Patient Records regulations: The Federal rules restrict any use of the information to criminally investigate or prosecute any alcohol or drug abuse patient.[facility] HospitalIn the event this information is protected by the Federal Confidentiality of Alcohol and Drug Abuse Patient Records regulations: The Federal rules restrict any use of the information to criminally investigate or prosecute any alcohol or drug abuse patient.[facility] HospitalIn the event this information is protected by the Federal Confidentiality of Alcohol and Drug Abuse Patient Records regulations: The Federal rules restrict any use of the information to criminally investigate or prosecute any alcohol or drug abuse patient.[facility] HospitalIn the event this information is protected by the Federal Confidentiality of Alcohol and Drug Abuse Patient Records regulations: The Federal rules restrict any use of the information to criminally investigate or prosecute any alcohol or drug abuse patient.[facility] HospitalIn the event this information is protected by the Federal Confidentiality of Alcohol and Drug Abuse Patient Records regulations: The Federal rules restrict any use of the information to criminally investigate or prosecute any alcohol or drug abuse patient.[facility] HospitalIn the event this information is protected by the Federal Confidentiality of Alcohol and Drug Abuse Patient Records regulations: The Federal rules restrict any use of the information to criminally investigate or prosecute any alcohol or drug abuse patient.[facility] HospitalIn the event this information is protected by the Federal Confidentiality of Alcohol and Drug Abuse Patient Records regulations: The Federal rules restrict any use of the information to criminally investigate or prosecute any alcohol or drug abuse patient.[facility] HospitalIn the event this information is protected by the Federal Confidentiality of Alcohol and Drug Abuse Patient Records regulations: The Federal rules restrict any use of the information to criminally investigate or prosecute any alcohol or drug abuse patient.[facility] HospitalIn the event this information is protected by the Federal Confidentiality of Alcohol and Drug Abuse Patient Records regulations: The Federal rules restrict any use of the information to criminally investigate or prosecute any alcohol or drug abuse patient.[facility] HospitalIn the event this information is protected by the Federal Confidentiality of Alcohol and Drug Abuse Patient Records regulations: The Federal rules restrict any use of the information to criminally investigate or prosecute any alcohol or drug abuse patient.[facility] HospitalIn the event this information is protected by the Federal Confidentiality of Alcohol and Drug Abuse Patient Records regulations: The Federal rules restrict any use of the information to criminally investigate or prosecute any alcohol or drug abuse patient.[facility] HospitalIn the event this information is protected by the Federal Confidentiality of Alcohol and Drug Abuse Patient Records regulations: The Federal rules restrict any use of the information to criminally investigate or prosecute any alcohol or drug abuse patient.[facility] HospitalIn the event this information is protected by the Federal Confidentiality of Alcohol and Drug Abuse Patient Records regulations: The Federal rules restrict any use of the information to criminally investigate or prosecute any alcohol or drug abuse patient.[facility] HospitalIn the event this information is protected by the Federal Confidentiality of Alcohol and Drug Abuse Patient Records regulations: The Federal rules restrict any use of the information to criminally investigate or prosecute any alcohol or drug abuse patient.[facility] HospitalIn the event this information is protected by the Federal Confidentiality of Alcohol and Drug Abuse Patient Records regulations: The Federal rules restrict any use of the information to criminally investigate or prosecute any alcohol or drug abuse patient.[facility] HospitalIn the event this information is protected by the Federal Confidentiality of Alcohol and Drug Abuse Patient Records regulations: The Federal rules restrict any use of the information to criminally investigate or prosecute any alcohol or drug abuse patient.[facility] HospitalIn the event this information is protected by the Federal Confidentiality of Alcohol and Drug Abuse Patient Records regulations: The Federal rules restrict any use of the information to criminally investigate or prosecute any alcohol or drug abuse patient.[facility] HospitalIn the event this information is protected by the Federal Confidentiality of Alcohol and Drug Abuse Patient Records regulations: The Federal rules restrict any use of the information to criminally investigate or prosecute any alcohol or drug abuse patient.[facility] HospitalIn the event this information is protected by the Federal Confidentiality of Alcohol and Drug Abuse Patient Records regulations: The Federal rules restrict any use of the information to criminally investigate or prosecute any alcohol or drug abuse patient.[facility] HospitalIn the event this information is protected by the Federal Confidentiality of Alcohol and Drug Abuse Patient Records regulations: The Federal rules restrict any use of the information to criminally investigate or prosecute any alcohol or drug abuse patient.[facility] HospitalIn the event this information is protected by the Federal Confidentiality of Alcohol and Drug Abuse Patient Records regulations: The Federal rules restrict any use of the information to criminally investigate or prosecute any alcohol or drug abuse patient.[facility] HospitalIn the event this information is protected by the Federal Confidentiality of Alcohol and Drug Abuse Patient Records regulations: The Federal rules restrict any use of the information to criminally investigate or prosecute any alcohol or drug abuse patient.[facility] HospitalIn the event this information is protected by the Federal Confidentiality of Alcohol and Drug Abuse Patient Records regulations: The Federal rules restrict any use of the information to criminally investigate or prosecute any alcohol or drug abuse patient.[facility] HospitalIn the event this information is protected by the Federal Confidentiality of Alcohol and Drug Abuse Patient Records regulations: The Federal rules restrict any use of the information to criminally investigate or prosecute any alcohol or drug abuse patient.[facility] HospitalIn the event this information is protected by the Federal Confidentiality of Alcohol and Drug Abuse Patient Records regulations: The Federal rules restrict any use of the information to criminally investigate or prosecute any alcohol or drug abuse patient.[facility] HospitalIn the event this information is protected by the Federal Confidentiality of Alcohol and Drug Abuse Patient Records regulations: The Federal rules restrict any use of the information to criminally investigate or prosecute any alcohol or drug abuse patient.[facility] HospitalIn the event this information is protected by the Federal Confidentiality of Alcohol and Drug Abuse Patient Records regulations: The Federal rules restrict any use of the information to criminally investigate or prosecute any alcohol or drug abuse patient.[facility] HospitalIn the event this information is protected by the Federal Confidentiality of Alcohol and Drug Abuse Patient Records regulations: The Federal rules restrict any use of the information to criminally investigate or prosecute any alcohol or drug abuse patient.[facility] HospitalIn the event this information is protected by the Federal Confidentiality of Alcohol and Drug Abuse Patient Records regulations: The Federal rules restrict any use of the information to criminally investigate or prosecute any alcohol or drug abuse patient.[facility] Reason for Visit (unrecogniz ed section and content) Reason Comments Radiology CT Specialty Diagnoses / Procedures Referred By Contac t Referred To Contact CT IMAGING Diagnoses Recurrent UTI (urinary tract infection) Procedures CT FLANK WO IVCON CT ABD & PELVIS W/O CONTRAST Dilip Loving PA-C [address] [place] [address] Ct Imaging Referral ID Status Reason Start Date Expiration Date V isits Requested Visits Authorized [id number] Closed Auto-Generate d Referral 11/05/2021 12/20/2021 1 [...] MDM 60 MINUTES Ila Canales MD [address] [facility] [place] [id number] Referral ID Status Reason Start Date Expiration Date V isits Requested Visits Authorized [id number] Closed PCP Requested Referral 08/22/2023 08/21/2024 1 1 Reason Onset Date Comments Weight Management Weight Management 12/21/2023 Reason Comments Insurance Authorization Reason Comments Reminder Call Reason Comments PSG Check In Reason Comments Received Outside Medical Records [facility] ED 02/09 Reason Comments Establish Care Specialty Diagnoses / Procedures Referred By Renzo t Referred To Contact INTERNAL MEDICINE Diagnoses PHYSICAL PT IS IN NETWORK IN [place] Procedures PHYSICAL PT IS IN NETWORK IN [place] [facility] [address] [place] [address] Referral ID Status Reason Start Date Expiration Date Visits Requested Visits Authorized [id number] Pending Review OON/Self Pay Override 06/28/2024 10/06/2025 1 1 Reason Comments Referral Information Cardiology Reason Comments Insurance Authorization PA for albuterol inhaler Reason Onset Date Comments Refill Request 08/23/2024 Reason Comments Returning Patient's Call 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 Adva ir Reason Comments Appointment 6 Month Follow up Reason Onset Date Comments Refill Request 01/24/2025 Albuterol inhale r Care Teams (unrecognized sec tion and content) Plasma Processor Relationship Specialty Start Date End Date Ila Canales MD [address] [place], [place] [id number] PCP - General Family Practice 08/27/14 Plasma Processor Relationship Specialty Start Date End Date Ila Canales MD [address] [facility] [place] [address] PCP - General Family Practice 08/27/14 Plasma Processor Relationship Specialty Start Date End Date Ila Canales MD [address] [facility] [place] [address] PCP - General Family Medicine 08/27/14 Plasma Processor Relationship Specialty Start Date End Date Ila Canales MD [address] [facility] [place] [address] PCP - General Family Medicine 08/27/14 Plasma Processor Relationship Specialty Start Date End Date Ila Canales MD [address] [facility] [place] [address] PCP - General Family Medicine 08/27/14 Plasma Processor Relationship Specialty Start Date End Date Ila Canales MD [address] [facility] [place] [address] PCP - General Family Medicine 08/27/14 Plasma Processor Relationship Specialty Start Date End Date Ila Canales MD [address] [facility] [place] [address] PCP - General Family Medicine 08/27/14 Plasma Processor Relationship Specialty Start Date End Date Ila Canales MD [address] [facility] [place] [address] PCP - General Family Medicine 08/27/14 Plasma Processor Relationship Specialty Start Date End Date Ila Canales MD [address] [facility] [place] [address] PCP - General Family Medicine 08/27/14 Plasma Processor Relationship Specialty Start Date End Date Ila Canales MD [address] [facility] [place] [id number] PCP - General Family Medicine 08/27/14 Plasma Processor Relationship Specialty Start Date End Date Ila Canales MD [address] [facility] [place] [id number] PCP - General Family Medicine 08/27/14 Plasma Processor Relationship Specialty Start Date End Date Ila Canales MD [address] [facility] [place], [place] [id number] PCP - General Family Medicine 08/27/14 Team Status: Active Member Role Status Dates Dr. Rj Canales MD Family Provider Active Dr. Rj Canales MD Primary Care Provider Active Team Status: Inactive Member Role Status Dates Dr. Rj Canales MD Primary Care Provider Active Dr. Anju Bermudez MD Referring Provider, Emergency Provider Active Plasma Processor Relationship Specialty Start Date End Date Ila Canales MD [address] [facility] [place] [id number] PCP - General Family Medicine 08/27/14 Plasma Processor Relationship Specialty Start Date End Date Ila Canales MD [address] [facility] [place] [id number] PCP - General Family Medicine 08/27/14 Plasma Processor Relationship Specialty Start Date End Date Ila Canales MD [address] [facility] [place], [place] [id number] PCP - General Family Medicine 08/27/14 Plasma Processor Relationship Specialty Start Date End Date Ila Canales MD [address] [facility] [place], [place] [id number] PCP - General Family Medicine 08/27/14 Plasma Processor Relationship Specialty Start Date End Date Ila Canales MD [address] [facility] [place] [id number] PCP - General Family Medicine 08/27/14 Plasma Processor Relationship Specialty Start Date End Date Ila Canales MD [address] [facility] [place] [address] PCP - General Family Medicine 08/27/14 Plasma Processor Relationship Specialty Start Date End Date Ila Canales MD [address] [facility] [place] [address] PCP - General Family Medicine 08/27/14 Plasma Processor Relationship Specialty Start Date End Date Ila Canales MD [address] [facility] [place] [address] PCP - General Family Medicine 08/27/14 Plasma Processor Relationship Specialty Start Date End Date Ila Canales MD [address] [facility] [place] [address] PCP - General Family Medicine 08/27/14 Plasma Processor Relationship Specialty Start Date End Date Ila Canales MD [address] [facility] [place] [address] PCP - General Family Medicine 08/27/14 Plasma Processor Relationship Specialty Start Date End Date Ila Canales MD [address] [facility] [place] [address] PCP - General Family Medicine 08/27/14 Plasma Processor Relationship Specialty Start Date End Date Ila Canales MD [address] [place] [address] PCP - General Family Medicine 08/27/14 Plasma Processor Relationship Specialty Start Date End Date Ila Canales MD [address] [place] [address] PCP - General Family Medicine 08/27/14 Plasma Processor Relationship Specialty Start Date End Date Ila Canales MD [address] [place] [address] PCP - General Family Medicine 08/27/14 Plasma Processor Relationship Specialty Start Date End Date Benigno Laguerre DO [address] [place], [place] [id number] PCP - General Internal Medicine 07/02/24 Ginny Eaton, LALA.PREBOARDER [address] [facility] [address] [place], [place] [id number] Cementing Machine Operator Internal Medicine 05/12/24 Trini Blackburn DO [address] [place] [address] PCP Resident 07/02/24 Plasma Processor Relationship Specialty Start Date End Date Benigno Laguerre DO [address] [place] [address] PCP - General Internal Medicine 07/02/24 Ginny Eaton APRN.PREBOARDER [address] [facility] [address] [place] [id number] Cementing Machine Operator Internal Medicine 05/12/24 Trini Blackburn DO [address] [place], [place] [id number] PCP Resident 07/02/24 Plasma Processor Relationship Specialty Start Date End Date Carlotta Benigno [address] [place], [place] [id number] PCP - General Internal Medicine 07/02/24 Ginny Eaton, LALA.PREBOARDER [address] [facility] [place] [id number] Cementing Machine Operator Internal Medicine 05/12/24 Trini Blackburn DO [address] [place], [place] [id number] PCP Resident 07/02/24 Plasma Processor Relationship Specialty Start Date End Date Carlotta BenignoDO [address] 5[address] [place], [place] [id number] PCP - General Internal Medicine 07/02/24 Ginny Eaton, ASSISTANT FARM OPERATIONS MANAGER.PREBOARDER [address] [facility] [address] [place], [place] [address] Cementing Machine Operator Internal Medicine 05/12/24 Trini Blackburn DO [address] [place] [address] PCP Resident 07/02/24 Plasma Processor Relationship Specialty Start Date End Date Carlotta BenignoDO [address] [place], [place] [phone] PCP - General Internal Medicine 07/02/24 Ginny Eaton APRN.PREBOARDER [address] [facility] [place] [id number] Cementing Machine Operator Internal Medicine 05/12/24 Trini Blackburn DO [address] [place], [place] [id number] PCP Resident 07/02/24 Plasma Processor Relationship Specialty Start Date End Date Benigno LaguerreDO 1 [facility] 5th Floor [place], [place] [id number] PCP - General Internal Medicine 07/02/24 Ginny Eaton APRN.CNP [address] [facility] [place] [id number] Cementing Machine Operator Internal Medicine 05/12/24 Trini Blackburn DO [address] [place], [place] [id number] PCP Resident 07/02/24 Team Status: Active Member [...] BE BASED ON THE PRIMARY CLINICAL RECORDS. [employer] provides no warranty or guarantee of the accuracy or completeness of information in this document.
--- OUTSIDE RECORDS SUMMARY | 2025-03-31 21:07 | XMS RPT_ITS | CCD ---
Author Organization [facility] ion [facility] Care Team Providers Care Emergency Medical Technician Name Role Phone Ila Canales MD Primary Care Provider [phone] ILA CANALES Referring Unavailable ILA CANALES Primary Care Unavailable MD GAYLE GREGORY Attending Unavailable Ila Canales MD Primary Care Provider Angelito PIPE FITTINGS MOLDER.ASSISTED LIVING CARE MANAGER, Ginny Unavailable Trini Blackburn DO Unavailable Benigno Laguerre DO Primary Care Provider [phone] TRINI BLACKBURN Attending Unavailable SELF Referring Unavailable BENIGNO LAGUERRE Primary Care Unavailable Dr. Derek Sanchez MD Emergency Department Physici an Javon SUH, Dr. De La Rosa Primary Care Physician ILA CANALES Primary Care Unavailable INDY QUIGLEY Attending Unavailable Derek Sanchez Attending Unavailable Rj Canales Primary Care Unavailable Edilma Ritter Referring Unavailable Rj Canales Primary Care Unavailable Edilma Ritter Attending Unavailable [facility] Doctor, Out of Primary Care Unavailable Nigel Quezada Attending Unavailable [facility] Doctor, Out of Referring Unavailable Edilma Ritter Referring Unavailable Rj Canales Primary Care Unavailable Edilma Ritter Consulting Unavailable Edilma Ritter Attending Unavailable Rj Canales Primary Care Unavailable Rj Canales Referring Unavailable Edilma Ritter Attending Unavailable [facility] Doctor, Out of Primary Care Unavailable [...] Amoxicillin / Clavulanate Drug Allergy 2 Diarrhea [facility] (20 sources) Amoxicillin / Clavulanate; Translations: [AMOXICILLIN-POT CLAVULANATE] Drug Allergy 2 Diarrhea [facility] (11 sources) environmental [Other] Propensity to adverse reactions 8 [facility] (20 sources) Seasonal allergy; Translations: [SEASONAL ALLERGIES] Allergy to substance 8 Intolerance [facility] (2 sources) Amoxicillin Drug Allergy 3 Abd cramps/diarrhe a [facility] (2 sources) Clavulanate Drug Allergy 3 Abd cramps/diarrhe a [facility] (1 source) Amoxicillin Drug Allergy 5 [facility] Repository (1 source) Clavulanate Drug Allergy 5 [facility] Repository Medications Current Medications Medication Drug Class(es) Dates Sig (Normalized) Sig (Original) [id number] 200 actuat albuterol 0.09 mg/actuat metered dose [...] on above: Take 1 capsule by mo [facility] twice daily for 7 days. diazePAM 5 [...] Comment on above: [facility] fluconazole 200 mg [...] 5 days. Take 1 capsule by mo [facility] two times a day for [...] on above: TAKE 1 CAPSULE BY MO [facility] EVERY DAY. TAKE AT LEAST 1 [...] Comment on above: Take 1 tablet by [facility] once daily. metFORMIN hydrochloride 500 mg [...] on above: Take 2 tablets by mo [facility] once daily for 5 days. Take 5 tablets by mo [facility] once daily for 1 day, THEN 4 [...] Comment on above: Take 1 tablet by [facility] as directed. at onset of headache. [...] Test Name Value Interpretation Reference Range Facility [facility] ([id number]) 1980 F Date Time Provider Department 03/27/25 ILA CANALES During your visit today, we recorded the following information about you: Karlene Lanza LPN 03/27/2025 3:50 PM Signed Received ed from [facility]. Placed in provider's inbox for review. Route to [place] scanning Allergies As of Date: 03/27/2025 Noted Allergy Reaction AUGMENTIN (AMOXICILLIN-POT CLAVUL*07/01/2021 6 - Diarrhea SEASONAL ALLERGIES 11/13/2007 5 - Intolerance Date Reviewed: 03/12/2025 Reviewed by: Pao Ponce LPN - Fully Assessed Reason for Visit: Received Outside Medical Records [[id number]] Cmt: [facility] Prescriptions as of 03/27/2025 - albuterol [...] Status:Closed by KARLENE LANZA on 03/27/25 Normal [facility] Discharge Instructionon 03-06 Discharge Instruction [facility] Medical Records Department [address] [place] [address] Instructions for Home/Discharge Instructions 03/27/25 0806 MR#: [id number] Acct: [id number] Name: ABDOUL FAITH Rep #: [id number] : 1980 44 From: Edilma Ritter MD PCP: Dr. Rj Canales MD Status:REG [facility] Discharge Instructions Diet Discharge Diet: No restrictions [...] Care Provider: Rj Canales Instructions Print Language: [place] Discharge Orders/Prescriptions Prescriptions: New oxycodone-acetaminoph en 5-325 [...] Care 03/27/25810 Edilma Ritter MD CC: Dr. jR Canales MD Signed [facility] MR/POSTOP.ANE 03-27-2025 MR/POSTOP.[facility] Medical Records Department [address] [place] [address] Anesthesia Postop Eval I 03/27/25910 MR#: [id number] Acct: [id number] Name: ABDOUL FAITH MONROE Rep #: [id number] : 1980 44 From: Torsten Greer CRNA PCP: Dr. Rj Canales MD Status:REG SDC Y Race: C Location: [place] [address] Anesthesia: Postop Eval I Current Vital Signs [...] Greer CRNA Cosigner Signature: Date CC: Signed [facility] MR/YLABORAW8by 03-27-2025 MR/POSTOPAN2 [facility] Medical Records Department [address] [place] [address] Anesthesia Postop Eval II 03/27/25 1429 MR#: [id number] Acct: [id number] Name: ABDOUL FAITH Rep #: [id number] : 1980 44 From: Zhao Jimenez MD PCP: Dr. Rj Canales MD Status:DEP [facility] Y Race: C [place] [facility] Anesthesia Postop Eval I Sum Postop Eval Completion status Anesthesia document: Postop Eval 1 completed: Yes Anesthesia Postop Eval I Summary Anesthesia Postop Eval I Summary: Anesthesia Postop Eval I: Assessment Summary Airway patent Yes 03/27/25 09:12 DIGITAL PRE PRESS OPERATOR.RWOO Spontaneous unlabored Yes 03/27/25 09:12 DIGITAL PRE PRESS OPERATOR.RWOO respirations Mental status Asleep 03/27/25 09:12 DIGITAL PRE PRESS OPERATOR.RWOO nausea No 03/27/25 09:12 DIGITAL PRE PRESS OPERATOR.RWOO Vomiting No 03/27/25 09:12 DIGITAL PRE PRESS OPERATOR.RWOO Anesthesia Postop Eval I: Fluid Summary Crystalloid volume administer 500 03/27/25 09:12 DIGITAL PRE PRESS OPERATOR.RWOO (ml) Colloids volume administered ( ml) Blood Product volume administered (ml) Total IV fluid infused 500 03/27/25 09:12 DIGITAL PRE PRESS OPERATOR.RWOO Anesthesia Postop Eval I: Summary Notes Anesthesia Complication No 03/27/25 09:12 DIGITAL PRE PRESS OPERATOR.RWOO Anesthesia Complication Comment: Post-operative progress note Anesthesia: Postop Eval II Evaluation Mental status: Awake and Calm Pain Level: 1 nausea: No Vomiting: No Complications Anesthesia Complication: No 03/27/25 142 Date Zhao Jimenez MD Cosigner Signature: Date CC: Signed Normal [facility] Operative Reporton Operative Report [facility] Medical Records Department [address] [place] [address] Operative Report 03/27/25 0914 MR#: [id number] Acct: [id number] Name: ABDOUL FAITH Rep #: [id number] : 1980 44 From: Edilma Ritter MD PCP: Dr. Rj Canales MD Status:[facility] Location: [place] [address] Operative Report (Standard) Operative Information Date of Procedure: 03/27/25 Pre-Operative Diagnosis: Left ureteral and right renal calculi Post-Operative Diagnosis: Same Surgery/Procedure Performed: Cystoscopy, left retrograde pyelogram, left ureteroscopy, thulium laser lithotripsy, stone basket extraction, left ureteral stent insertion, right ureteroscopy printing press operator: No Type of Anesthesia: General RN Documented [...] S that apply: Drains Drain details: 4.5 Micronesian by 26 cm JJ stent Estimated Blood [...] was utilized for placement of a 4.5 Micronesian by 26 cm JJ stent. There was good positioning seen on fluoroscopy and in the urinary bladder. There was an area consistent with a possible second ureteral orifice 1 cm medial to the orifice where the stone was identified. A retrograde pyelogram using an 8 Micronesian cone-tip catheter was done into this area [...] prophylaxis not ordered: Treatment Not Indicated 03/27/25 3220 Cosigner Signature (if applicable): CC: Dr. Edilma Ritter MD; Dr. Rj Canales MD Signed Normal [facility] ,Urineon 03-27-2025 Beta HCG ( test) Ql (U) Negative [facility] Comment on above: Result Comment: Very dilute urine specimens, as indicated by a low specific gravity, may not contain chemical sales representative levels of hCG. If is still suspected, a first morning urine specimen should be collected 48 hours later and tested. Performed By: #### L 700.6800, L500.2500, L100.0100 #### [facility] Laboratory [address] [place], [address] 12 Lead EKGon 03-21-2025 12 Lead EKG [facility] Cardiovascular Services [address] [place] [address] 12 Lead EKG 03/21/25 0725 MR#: [id number] Acct: [id number] Name: ABDOUL FAITH Rep #: [id number] : 1980 44 From: Nigel Quezada MD Attending Dr: Dr. Edilma Ritter MD Status: PRE [facility] Ordering Dr: Zhao Jimenez MD Date: 03/21/25 Location: [facility] Sex: F C Admitted: Test Reason : PREOP Blood Pressure : */* mmHG Vent. Rate : 70 BPM Atrial Rate : 70 BPM P-R Int : 146 ms QRS Dur : 82 ms QT Int : 382 ms P-R-T Axes : 48 46 37 degrees QTcB Int : 412 ms Normal sinus rhythm Normal ECG Confirmed by CONCETTA SUH, NIGEL ([id number]), editor in chief newspaper LAURENCE DUKES ([id number]) on 03/24/2025 6:58:00 AM Referred By: Edilma Ritter Confirmed By: NIGEL QUEZADA MD 03/24/25 0658 Date Nigel Quezada MD CC: Dr. Zhao Jimenez MD; Dr. Edilma Ritter MD; Dr. Rj Canales MD Signed [facility] MR/PAT.Conor 03-21-2025 MR/PAT.[facility] Medical Records Department [address] [place] [address] PAT - Anesthesia 03/21/25 1552 MR#: [id number] Acct: [id number] Name: ABDOUL FAITH Rep #: [id number] : 1980 44 From: Miguel Sahu MD PCP: Dr. 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: Anesthesia History - radio mechanic helper Hx Hospitalization No 03/20/25 15:24 Any Problems [...] take am of surgery PONV PONV - radio mechanic helper: PONV - radio mechanic helper Female Yes 03/20/25 15:24 HX of Motion [...] 03/18/25 08:30 Respiratory Assessment Respiratory Assessment - radio mechanic helper: Respiratory Tract Infection Hx - radio mechanic helper Hx Respiratory Tract Infection No 03/20/25 15:24 STOP Sleep Apnea STOP Sleep Apnea - radio mechanic helper: STOP Sleep Apnea - radio mechanic helper Hx Hypertension No 03/20/25 15:24 Hx Sleep [...] Tobacco Use History Tobacco Use History - radio mechanic helper: Tobacco Use History - radio mechanic helper Tobacco Use Smoking Status Current every day smoker 03/20/25 15:24 Hx Tobacco Use Yes 03/20/25 15:24 Years Smoking Packs Smoked per Day Smoking Cessation Date was within the last 15 years Hx Smoking Cessation Date Hx Smoking Cessation Counseling Hematologic Medial History Hematologic Hx - radio mechanic helper: Hematologic Medical Hx - talent analyst Hx of Blood Transfusion No 03/20/25 15:24 [...] /Reproductio n History /Reproductiv e History - radio mechanic helper: /Reproductiv e Hx- radio mechanic helper Hx Now No 03/20/25 15:24 Gestational Age [...] 1 - 2 puff inhalation Q6H PRN OK N 06/17/16 Unknown History aerosol inhaler (Ventolin [...] Rx TABLETS c (more content not included)... [facility] 03-20-2025 [place] Telephone (FPWADS) ABDOUL FAITH ([id number]) 1980 F Date Time Provider Department 03/20/25 ILA CANALES During your visit today, we recorded the following information about you: Karlene Lanza LPN 03/20/2025 9:56 AM Signed Received visit summary from [facility]. Placed in provider's inbox for review. Route to MA scanning Allergies As of Date: 03/20/2025 Noted Allergy Reaction AUGMENTIN (AMOXICILLIN-POT CLAVUL*07/01/2021 6 - Diarrhea SEASONAL ALLERGIES 11/13/2007 5 - Intolerance Date Reviewed: 03/12/2025 Reviewed by: Pao Ponce LPN - Fully Assessed Reason for Visit: Received Outside Medical Records [[id number]] Cmt: [facility] Prescriptions as of 03/20/2025 - [...] Encounter Status:Closed by KARLENE LANZA on 03/20/25 [facility] MR/Malvin 03-18-2025 MR/KRYSTIAN [facility] [address] [place] [address], [address] [place] [address] OFFICE VISIT Date of Service: 03/18/25 MR#: [id number] Acct: [id number] Name: ABDOUL FAITH MONROE Rep #: [id number] : 1980 Provider: Dr. Edilma Andino i, MD Age/Sex: 44/F Location[place] [facility] Status: Signed Intake Vital Signs 03/13/25 09:25 03/18/25 08:30 Height 5 ft 5 in 5 ft 5 in Weight: 174 lb BMI 28.9 BP 114/89 H Pulse 99 Intake Visit Reasons: ER F/U Stones Chief Complaint: ER follow up for 6mm kidney stone Floor Plan Adjuster Required: No Accompanied by: self Is patient in pain?: Yes (aching kidney stone pain ) Pain scale (1-10): 7 Allergies amoxicillin (From Augmentin) Adverse Reaction (Mild, Verified 03/13/25 09:24) Abd cramps/diarrhea clavulanic acid (From Augmentin) Adverse Reaction (Mild, Verified 03/13/25 09:24) Abd cramps/diarrhea Medications ???Medication ???Instructions ???Recorded ???Confirmed ???Type albuterol sulfate 90 mcg/actuation 1 - 2 puff inhalation Q6H PRN OK N 06/17/16 03/18/25 History aerosol inhaler (Ventolin [...] Suggs on 03/18/25 08:34 Off Ur Spec [place] 1.015 Last Edit by Jeannie Suggs on [...] Edit by (more content not included)... Normal [facility] ([id number]) 1980 F Date Time Provider Department 03/17/25 ILA CANALES FPWADS During your visit today, we recorded the following information about you: Michelle Brown LPN 03/17/2025 3:35 PM Signed Received 03/15/2025 from [facility]. Placed in provider's inbox for review. Route to [place] for scanning Allergies As of Date: 03/17/2025 Noted Allergy Reaction AUGMENTIN (AMOXICILLIN-POT CLAVUL*07/01/2021 6 - Diarrhea SEASONAL ALLERGIES 11/13/2007 5 - Intolerance Date Reviewed: 03/12/2025 Reviewed by: Pao Ponce LPN - Fully Assessed Reason for Visit: Received Outside Medical Records [[id number]] Cmt: [facility] ER visit summary 03/13/2025 abdominal pain Prescriptions [...] MICHELLE BROWN on 03/17/25 Normal [facility] Abdomen/Pelvis W IV Cont ONL Yon 03-13-2025 Abdomen/Pelvis W IV Cont ONLY [facility] Imaging Services [address] [place] [address] Abdomen/Pelvis W IV Cont ONLY MR#: [id number] Acct: [id number] Name: ABDOUL FAITH Rep #: [id number] : 1980 F 44 From: Panfilo Su MD PCP: Dr. Rj Canales MD Status: REG ER Study: Abdomen/Pelvis W IV Cont ONLY Date of Exam: Exam# [id number] Ordering Dr: Derek Sanchez MD PROCEDURE: ABDOMEN/PELVIS [...] right kidney. Normal appendix Cholelithiasis Reading Location: [facility] CC: Dr. Derek Sanchez MD; Dr. Rj Canales MD Brim Buster: Signed Normal [facility] Absolute lymphocyte countOrd ered By: Derek Sanchez on 03-13-2025 Lymphocytes Auto (Unsp spec) [#/Vol] 1.27 10*3/uL 0.83-4.51 [facility] Absolute neutrophil countOrd ered By: Derek Sanchez on 03-13-2025 Neutrophils (Bld) [#/Vol] 5.2 10*3/uL 2.0-7.7 [facility] Anion gap in Serum or Plasma Ordered By: Derek Sanchez on 03-13-2025 Anion gap [Moles/Vol] 9 mmol/L 5-15 [facility] Automated blood erythrocyte countOrdered By: Derek Sanchez on 03-13-2025 RBC (Bld) [#/Vol] 4.92 10*6/uL Normal 4.2-5.4 [facility] Comment on above: Performed By: #### L 700.6260, L500.2500, L100.0100 #### [facility] Laboratory [address] [place], [place], [id number] Automated blood hematocrit ( percentage)Ordered By: Derek Sanchez on 03-13-2025 Hematocrit (Bld) [Volume fraction] 42.2 % Normal 37-47 [facility] Comment on above: Performed By: #### L 700.6800, L500.2500, L100.0100 #### [facility] Laboratory [address] [place], [address] Automated lymphocyte count a s percentage of total leukocytesOrdered By: Derek Sanchez on 03-13-2025 Lymphocytes/100 WBC Auto (Unsp spec) 17.5 % Low 19-41 [facility] BUN/creatinine ratioOrdered By: Derek Sanchez on 03-13-2025 Urea nitrogen/Creatinine [Mass ratio] 11.1 mg/mg - [facility] Basic Metabolic Profile (BMP )on 03-13-2025 BUN/CRE 11.1 RATIO Normal - [facility] Comment on above: Performed By: #### L 700.6800, L500.2500, L100.0100 #### [facility] [address] [place], [address] ECRCL 89.15 ml/min Normal 50-250 [facility] Comment on above: Performed By: #### L 700.6800, L500.2500, L100.0100 #### [facility] [address] [place], [address] GAP 9 Normal 5-15 [facility] Comment on above: Performed By: #### L 700.6800, L500.2500, L100.0100 #### [facility] [address] [place], [address] Potassium [Moles/Vol] 3.9 mmol/L Normal 3.3-5.1 [facility] Comment on above: Performed By: #### L 700.6800, L500.2500, L100.0100 #### [facility] [address] [place], [address] Basophil percentageOrdered B y: Derek Sanchez on 03-13-2025 Basophils/100 WBC (Bld) 0.4 % Normal 0-1 [facility] Comment on above: Performed By: #### L 700.6800, L500.2500, L100.0100 #### [facility] [address] [place], [address] Bilirubin Test strip Ql (U)O rdered By: Derek Sanchez on 03-13-2025 Bilirubin Ql (U) 1 mg/dL High Negative [facility] Comment on above: COLOR OF URINE MAY A FFECT DIPSTICK RESULTS. CBC W/Diff, Automatedon 10-0 Absolute Lymph 1.27 X10 3/uL Normal 0.83-4.51 [facility] Comment on above: Performed By: #### L 700.6800, L500.2500, L100.0100 #### [facility] [address] [facility] [place], [address] Absolute Neut 5.2 X10 3/uL Normal 2.0-7.7 [facility] Comment on above: Performed By: #### L 700.6800, L500.2500, L100.0100 #### [facility] [address] [facility] [place], [address] IG% 0.400 Normal 0.0-0.9 [facility] Comment on above: Result Comment: IG% - Immature Granulocytes (promyelocytes, myelocytes and metamyelocytes) > 1% indicates that a LEFT SHIFT is Present. Performed By: #### L 700.6800, L500.2500, L100.0100 #### [facility] [address] [facility] [place], [address] Lymphocytes/100 WBC (Bld) 17.5 % Low 19-41 [facility] Comment on above: Performed By: #### L 700.6800, L500.2500, L100.0100 #### [facility] [address] [facility] [place], [address] Nucleated RBC (Bld) [#/Vol] 0 10*3/uL Normal 0-5 [facility] Comment on above: Performed By: #### L 700.6800, L500.2500, L100.0100 #### [facility] [address] [place], [address] RDW SD 37.8 fl Normal 35.1-43.9 [facility] Comment on above: Performed By: #### L 700.6800, L500.2500, L100.0100 #### [facility] [address] [place], [address] Carbon dioxide, total [Moles /volume] in Central venous bloodOrdered By: Derek Sanchez on 03-13-2025 CO2 [Moles/Vol] 25.2 mmol/L Normal 21.0-32.0 [facility] Comment on above: Performed By: #### L 700.6800, L500.2500, L100.0100 #### [facility] [address] [place], [address] Chloride assayOrdered By: Remigio Sanchez on 03-13-2025 Chloride [Moles/Vol] 104 mmol/L Normal 98-108 [facility] Comment on above: Performed By: #### L 700.6800, L500.2500, L100.0100 #### [facility] [address] [place], [address] Emergency Department Summary on 03-13-2025 Emergency Department Summary [facility] Medical Records Department [address] [place] [address] Emergency Department Summary 03/13/25 MR#: [id number] Acct: [id number] Name: ABDOUL FAITH Rep #: [id number] : 1980 44 From: Derek Sanchez MD [...] 1 - 2 puff inhalation Q6H PRN OK N 06/17/16 Unknown History aerosol inhaler (Ventolin [...] Allergic/Immunologic E (more content not included)... Normal [facility] Eosinophil percentageOrdered By: Derek Sanchez on 03-13-2025 Eosinophils/100 WBC (Bld) 4.0 % Normal 0-5 [facility] Comment on above: Performed By: #### L 700.6720, L500.2500, L100.0100 #### [facility] Laboratory [address] [place], [address] Erythrocyte distribution wid th ratioOrdered By: Derek Sanchez on 03-13-2025 Erythrocyte distribution width (RBC) [Ratio] 12.0 % Normal 11.6-14.6 [facility] Comment on above: Performed By: #### L 700.6800, L500.2500, L100.0100 #### [facility] Laboratory [address] [place], [address] Erythrocyte distribution wid th standard deviationOrdered By: Derek Sanchez on 03-13-2025 Erythrocyte distribution width (RBC) [Ratio] 37.8 fl 35.1-43.9 [facility] Glomerular filtration rate ( GFR) estimation/1.73 sq m using serum, plasma, or whole bOrdered By: Derek Sanchez on 03-13-2025 GFR/1.73 sq M.predicted among non-blacks MDRD (S/P/Bld) [Vol rate/Area] 87 mL/min/{1.73_m2} Normal >60 [facility] Comment on above: mL/min/1.73m2 CKD-EP I Creatinine Equation (2020) Result Comment: mL/m in/1.73m2 CKD-EPI Creatinine Equation (2020) Performed By: #### L 700.6800, L500.2500, L100.0100 #### [facility] [address] [place], [address] Hemoglobin measurementOrdere d By: Derek Sanchez on 03-13-2025 Hemoglobin (Bld) [Mass/Vol] 14.4 g/dL Normal 12.0-15.0 [facility] Comment on above: Performed By: #### L 700.6800, L500.2500, L100.0100 #### [facility] [address] [place], [address] Immature granulocytes/100 WB C Auto (Bld)Ordered By: Derek Sanchez on 03-13-2025 Immature granulocytes/100 WBC (Bld) 0.400 % 0.0-0.9 [facility] Comment on above: IG% - Immature Granu locytes (promyelocytes, myelocytes and metamyelocytes) > 1% indicates that a LEFT SHIFT is Present. Ketones Test strip Ql (U)Ord ered By: Derek Sanchez on 03-13-2025 Ketones Ql (U) Negative Negative [facility] MCV (mean corpuscular volume ) determinationOrdered By: Derek Sanchez on 03-13-2025 MCV (RBC) [Entitic vol] 85.8 fL Normal 81-99 [facility] Comment on above: Performed By: #### L 700.6800, L500.2500, L100.0100 #### [facility] [address] [place], [address] Mean corpuscular hemoglobin (MCH) determinationOrdered By: Derek Sanchez on 03-13-2025 MCH (RBC) [Entitic mass] 29.3 pg Normal 27.0-32.0 [facility] Comment on above: Performed By: #### L 700.6800, L500.2500, L100.0100 #### [facility] [address] [place], [address] Mean corpuscular hemoglobin concentration (MCHC) determinationOrdered By: Derek Sanchez on 03-13-2025 MCHC (RBC) [Mass/Vol] 34.1 g/dL Normal 32-36 [facility] Comment on above: Performed By: #### L 700.6800, L500.2500, L100.0100 #### [facility] Laboratory [address] [place], [address] Mean platelet volume determi nationOrdered By: Derek Sanchez on 03-13-2025 Platelet mean volume (Bld) [Entitic vol] 9.2 fL Normal 6.2-12.0 [facility] Comment on above: Performed By: #### L 700.6800, L500.2500, L100.0100 #### [facility] Laboratory [address] [place], [address] Microscopic analysis of urin e for red blood cells (RBC)Ordered By: Derek Sanchez on 03-13-2025 Microscopic analysis of urine for red blood cells (RBC) 0 SEEN /hpf 0-5 [facility] Monocyte percentageOrdered B y: Derek Sanchez on 03-13-2025 Monocytes/100 WBC (Bld) 6.3 % Normal 0-10 [facility] Comment on above: Performed By: #### L 700.6800, L500.2500, L100.0100 #### [facility] Laboratory [address] [place], [place], [address] Mucus LM Ql (Urine sed)Order ed By: Derek Sanchez on 03-13-2025 Mucus Ql (Urine sed) 0 SEEN /hpf [facility] Neutrophil percentageOrdered By: Derek Sanchez on 03-13-2025 Neutrophils/100 WBC (Bld) 71.4 % High 47-70 [facility] Comment on above: Performed By: #### L 700.6800, L500.2500, L100.0100 #### [facility] Laboratory [address] [facility] [place], [place], [address] Nitrite Test strip Ql (U)Ord ered By: Derek Sanchez on 03-13-2025 Nitrite Ql (U) Positive High Negative [facility] Nucleated red blood cell per centageOrdered By: Derek Sanchez on 03-13-2025 Nucleated RBC/100 WBC (Bld) [Ratio] 0 % 0-5 [facility] Platelet countOrdered By: Remigio Sanchez on 03-13-2025 Platelets (Bld) [#/Vol] 329 10*3/uL Normal 150-450 [facility] Comment on above: Performed By: #### L 700.6800, L500.2500, L100.0100 #### [facility] Laboratory [address] [place], [place], [address] Potassium measurement (mass/ volume)Ordered By: Derek Sanchez on 03-13-2025 Potassium (Unsp spec) [Mass/Vol] 3.9 mmol/L 3.3-5.1 [facility] ,Serum,hCG Quali.on 03-13-2025 HCG, SERUM QUAL Negative Normal [facility] Comment on above: Performed By: #### L 700.6800, L500.2500, L100.0100 #### [facility] Laboratory [address] [facility] [place], [address] Protein Test strip Ql (U)Ord ered By: Derek Sanchez on 03-13-2025 Protein Ql (U) 30 mg/dl High Negative [facility] Serum beta-hCG test, qualita tiveOrdered By: Derek Sanchez on 03-13-2025 Beta HCG ( test) Ql Negative [facility] Serum creatinine measurement (mass/volume)Ordered By: Derek Sanchez on 03-13-2025 Creatinine [Mass/Vol] 0.85 mg/dL Normal 0.70-1.20 [facility] Comment on above: Performed By: #### L 700.6800, L500.2500, L100.0100 #### [facility] Laboratory [address] [facility] [place], [address] Serum glucose measurement (m ass/volume)Ordered By: Derek Sanchez on 03-13-2025 Glucose [Mass/Vol] 94 mg/dL Normal 70-99 [facility] Comment on above: Performed By: #### L 700.6800, L500.2500, L100.0100 #### [facility] Laboratory [address] [place], [address] Serum or plasma calcium unruly urement (mass/volume)Ordered By: Derek Sanchez on 03-13-2025 Calcium [Mass/Vol] 9.0 mg/dL Normal 7.6-11.0 [facility] Comment on above: Performed By: #### L 700.6800, L500.2500, L100.0100 #### [facility] Laboratory [address] [facility]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 07-02-2024 08:18-0500 SaO2% (BldA) [Mass fraction] 99 % Trini Blackburn DO Work Phone: [facility] 07-02-2024 08:18-0500 Systolic blood pressure 121 mm[Hg] Trini Blackburn DO Work Phone: [facility] 12-21-2023 07:43-0400 Body height 165.1 cm Nancy Viera APRN.ASSISTED LIVING CARE MANAGER Work Phone: [facility] 12-21-2023 07:43-0400 Body mass index (BMI) [Ratio] 32.28 kg/m2 Nancy Viera APRN.ASSISTED LIVING CARE MANAGER Work Phone: [facility] 12-21-2023 07:43-0400 Body weight 88 kg Nancy Viera APRN.ASSISTED LIVING CARE MANAGER Work Phone: [facility] 12-21-2023 07:43-0400 Diastolic blood pressure 85 mm[Hg] Nancy Viera APRN.ASSISTED LIVING CARE MANAGER Work Phone: [facility] 12-21-2023 07:43-0400 Heart rate 81 /min Nancy Viera APRN.ASSISTED LIVING CARE MANAGER Work Phone: [facility] 12-21-2023 07:43-0400 SaO2% (BldA) [Mass fraction] 98 % Nancy Viera APRN.ASSISTED LIVING CARE MANAGER Work Phone: [facility] 12-21-2023 07:43-0400 Systolic blood pressure 120 mm[Hg] Nancy Viera APRN.ASSISTED LIVING CARE MANAGER Work Phone: [facility] 12-14-2023 15:32-0400 Body height 166.4 cm Juan Manuel Gayle DO Work Phone: [facility] 12-14-2023 15:32-0400 Body mass index (BMI) [Ratio] 31.79 kg/m2 Juan Manuel Gayle DO Work Phone: [facility] 12-14-2023 15:32-0400 Body weight 88 kg Juan Manuel Gayle DO Work Phone: [facility] 12-14-2023 15:32-0400 Diastolic blood pressure 64 mm[Hg] Juan Manuel Gayle DO Work Phone: [facility] 12-14-2023 15:32-0400 Systolic blood pressure 96 mm[Hg] Juan Manuel Gayle DO Work Phone: [facility] 09-15-2023 11:26-0400 Body weight 88.45 kg Nancy Viera APRN.ASSISTED LIVING CARE MANAGER Work Phone: [facility] 09-15-2023 11:26-0400 Diastolic blood pressure 72 mm[Hg] Nancy Viera APRN.ASSISTED LIVING CARE MANAGER Work Phone: [facility] 09-15-2023 11:26-0400 Systolic blood pressure 114 mm[Hg] Nancy Viera APRN.ASSISTED LIVING CARE MANAGER Work Phone: [facility] 08-22-2023 09:02-0400 Diastolic blood pressure 70 mm[Hg] Ila Canales MD Work Phone: [facility] 08-22-2023 09:02-0400 Systolic blood pressure 110 mm[Hg] Ila Canales MD Work Phone: [facility] 08-22-2023 08:38-0400 Body height 166.4 cm Ila Canales MD Work Phone: [facility] 08-22-2023 08:38-0400 Body weight 88 kg Ila Canales MD Work Phone: [facility] 08-22-2023 08:38-0400 Heart rate 88 /min Ila Canales MD Work Phone: [facility] 08-22-2023 08:38-0400 SaO2% (BldA) [Mass fraction] 100 % Ila Canales MD Work Phone: [facility] 05-30-2023 10:04-0500 Diastolic blood pressure 97 mm[Hg] [facility] 05-30-2023 10:04-0500 Heart rate 87 /min [facility] 05-30-2023 10:04-0500 Respiratory rate 16 /min [facility] 05-30-2023 10:04-0500 SaO2% (BldA) [Mass fraction] 98 % [facility] 05-30-2023 10:04-0500 Systolic blood pressure 119 mm[Hg] [facility] 05-30-2023 08:31-0500 Body height 165.1 cm [facility] 05-30-2023 08:31-0500 Body mass index (BMI) [Ratio] 31.4 kg/m2 [facility] 05-30-2023 08:31-0500 Body temperature 97.2 [degF] [facility] 05-30-2023 08:31-0500 Body weight 85.72 kg [facility] 05-20-2023 12:06-0500 Body temperature 97.7 [degF] César Fernandez MD Work Phone: [facility] 05-20-2023 12:06-0500 Body weight 84.91 kg César Fernandez MD Work Phone: [facility] 05-20-2023 12:06-0500 Diastolic blood pressure 100 mm[Hg] César Fernandez MD Work Phone: [facility] 05-20-2023 12:06-0500 Heart rate 92 /min César Fernandez MD Work Phone: [facility] 05-20-2023 12:06-0500 Respiratory rate 20 /min César Fernandez MD Work Phone: [facility] 05-20-2023 12:06-0500 SaO2% (BldA) [Mass fraction] 100 % César Fernandez MD Work Phone: [facility] 05-20-2023 12:06-0500 Systolic blood pressure 134 mm[Hg] César Fernandez MD Work Phone: [facility] 04-02-2023 08:44-0400 Body temperature 98.8 [degF] Aminah Athy PA-C Work Phone: [facility] 04-02-2023 08:44-0400 Body weight 82.46 kg Aminah Athy PA-C Work Phone: [facility] 04-02-2023 08:44-0400 Diastolic blood pressure 80 mm[Hg] Aminah Athy PA-C Work Phone: [facility] 04-02-2023 08:44-0400 Heart rate 100 /min Aminah Athy PA-C Work Phone: [facility] 04-02-2023 08:44-0400 Respiratory rate 20 /min Aminah Athy PA-C Work Phone: [facility] 04-02-2023 08:44-0400 SaO2% (BldA) [Mass fraction] 99 % Aminah Athy PA-C Work Phone: [facility] 04-02-2023 08:44-0400 Systolic blood pressure 118 mm[Hg] Aminah Athy PA-C Work Phone: [facility] 07-25-2022 14:57-0500 Body height 167.6 cm Ila Canales MD Work Phone: [facility] 07-25-2022 14:57-0500 Body weight 90.27 kg Ila Canales MD Work Phone: [facility] 07-25-2022 14:57-0500 Diastolic blood pressure 73 mm[Hg] Ila Canales MD Work Phone: [facility] 07-25-2022 14:57-0500 Heart rate 82 /min Ila Canales MD Work Phone: [facility] 07-25-2022 14:57-0500 SaO2% (BldA) [Mass fraction] 97 % Ila Canales MD Work Phone: [facility] 07-25-2022 14:57-0500 Systolic blood pressure 119 mm[Hg] Ila Canales MD Work Phone: [facility] Encounters Encounter Date Encounter Type Care Provider Facility Start: 03-28-2025 Encounter for other preprocedural examination [facility] Start: 03-27-2025 ambulatory [facility] Facility: [facility] Start: 03-27-2025 End: 03-27-2025 ambulatory [facility] Facility:[facility] Start: 03-18-2025 End: 03-18-2025 ambulatory Rj Canales Facility:[facility] Start: 03-13-2025 End: 03-13-2025 Emergency department patient visit Dr. Derek Sanchez MD Work Phone: -Emergency Department Work Phone: Start: 03-12-2025 End: 03-12-2025 ambulatory ILA CANALES Facility:[facility] Start: 01-24-2025 End: 01-26-2025 Refill Trini Blackburn DO Work Phone: [facility] ([facility]) Comment on above: Refill Request (Albu terol inhaler) Start: 11-22-2024 End: 11-22-2024 Telephone encounter Trini Alexey DO Work Phone: [facility] ([facility]) Comment on above: Appointment (6 Month Follow up) Start: 10-07-2024 End: 10-07-2024 Emergency department patient visit Out of Town Doctor Facility:[facility] Start: 09-23-2024 End: 09-23-2024 Refill Trini Alexey DO Work Phone: [facility] ([facility]) Comment on above: Refill Request ([facility]ollis. Manish) Start: 08-28-2024 End: 08-29-2024 ambulatory Trini Alexey DO Work Phone: [facility] ([facility]) Start: 08-28-2024 End: 08-29-2024 Patient encounter procedure Trini Blackburn DO Work Phone: [facility] ([facility]) Comment on above: Inhaler Start: 08-26-2024 End: 08-27-2024 Telephone encounter Trini Blackburn DO Work Phone: [facility] ([facility]) Comment on above: Supervisor Powdered Sugar - O ivory ([facility] - updated instructions) Start: 08-23-2024 End: 08-23-2024 Refill Benigno Laguerre DO Work Phone: [facility] ([facility]) Comment on above: Refill Request Returning Patient's Call Start: 08-21-2024 End: 08-21-2024 ambulatory Out of Town Doctor Facility:[facility] Start: 08-21-2024 End: 08-21-2024 ambulatory Out of Town Doctor Facility:[facility] Start: 08-21-2024 ambulatory Health Risk Assessment Facility:[facility] Start: 07-08-2024 End: 07-08-2024 Telephone encounter Benigno Laguerre DO Work Phone: [facility] ([facility]) Comment on above: Insurance Authorizat ion (PA for albuterol inhaler) Start: 07-02-2024 End: 07-02-2024 Telephone encounter Trini Blackburn DO Work Phone: [facility] ([facility]) Comment on above: Referral Information (Cardiology) Start: 07-02-2024 End: 07-02-2024 Office outpatient new 30 minutes Trini Blackburn DO Work Phone: [facility] ([facility]) Comment on above: Depression, unspecif ied depression type (Primary Dx); Mild persistent asthma without complication; Obesity (BMI 30.0-34.9); Palpitations; Lightheadedness Start: 07-02-2024 End: 07-02-2024 ambulatory TRINI BLACKBURN Facility:[facility] Start: 02-12-2024 End: 02-12-2024 Telephone encounter Ila Canales MD Work Phone: [facility] Comment on above: Received Outside Med ical Records ([facility] 02/09) Start: 01-18-2024 Refill Ginny UMANZOR.ASSISTED LIVING CARE MANAGER Work Phone: [facility] Comment on above: Refill Request Start: 01-16-2024 Chart abstracting [facility] Work Phone: Neurology Comment on above: PSG Check In Start: 01-13-2024 Refill Nancy LEONARD RN.ASSISTED LIVING CARE MANAGER Work Phone: OB/Gynecology Comment on above: Refill Request Start: 01-10-2024 Telephone encounter Lidia mack RN Cardiology Lab Comment on above: Reminder Call Start: 12-21-2023 Telephone encounter Nancy rdz APRN.ASSISTED LIVING CARE MANAGER Work Phone: OB/Gynecology Comment on above: Insurance Authorizat ion Start: 12-21-2023 End: 12-21-2023 Patient encounter procedure Nancy Viera APRN.ASSISTED LIVING CARE MANAGER Work Phone: OB/Gynecology Comment on above: Gastroesophageal [...] Start: 12-14-2023 End: 12-14-2023 ambulatory ILA CANALES Facility:[facility] Start: 12-14-2023 Telephone encounter Juan Manuel Gayle DO Work Phone: Cardiology Comment on above: Appointment Start: 11-22-2023 Refill Ila burk MD Work Phone: [facility] Comment on above: Refill Request Start: [...] encounter status Nancy Viera APRN.CNP Work Phone: [facility] Work Phone: Start: 08-22-2023 End: 08-22-2023 Patient encounter procedure Ila Canales MD Work Phone: [facility] Comment on above: Well adult exam (Marge sofiya Dx); Mild persistent asthma without complication; Neck pain on left side; Cervicogenic headache; Palpitations; Atypical chest pain; Systolic click; Chronic foot pain, left; Tetanus-diphtheria (Td) vaccination Start: 08-22-2023 End: 08-22-2023 Patient encounter status Ila Canales MD Work Phone: [facility] Work Phone: Start: 08-10-2023 Documentation procedure Mammog jesu Coordinator [facility] Start: 08-10-2023 Letter encounter Mammography Coordinator [facility] Department Start: 08-09-2023 End: 08-09-2023 Subsequent hospital visit by physician Screen Mammo [facility] Comment on above: Encounter for screen ing mammogram for breast cancer [Z12.31] Start: 08-02-2023 ambulatory Ila burk MD Work Phone: Internal Medicine [facility] Start: 05-30-2023 End: 05-30-2023 Emergency department patient visit [facility]-Emergency Department Work Phone: Start: 05-22-2023 End: 05-22-2023 Subsequent hospital visit by physician [facility] Work Phone: Radiology Comment on above: Subacute cough [R05. 2] Start: 05-20-2023 End: 05-20-2023 Patient encounter procedure César Fernandez MD Work Phone: [facility] Comment on above: Subacute cough (Prim elisha Dx); Hemoptysis; Hoarse voice quality; Asthma with acute exacerbation, unspecified asthma severity, unspecified whether persistent; Acute non-recurrent sinusitis, unspecified location; Mild persistent asthma without complication Start: 05-06-2023 Refill Ila burk MD Work Phone: [facility] Comment on above: Refill Request Start: 04-12-2023 Telephone encounter Ila Canales MD Work Phone: [facility] Comment on above: Medication Request ( [facility] ) Start: 04-02-2023 End: 04-02-2023 Patient encounter procedure Aminah R Srinath DIAZ Work Phone: [facility] Comment on above: LRTI (lower respirat ory tract infection) (Primary Dx) Start: 10-12-2022 Refill Ila burk MD Work Phone: [facility] Comment on above: Refill Request Start: 09-21-2022 Telephone encounter Aminah Ferrer ese PA-C Work Phone: [facility] Comment on above: Results Start: 07-25-2022 End: 07-25-2022 Patient encounter procedure Ila Canales MD Work Phone: [facility] Comment on above: Well adult exam (Marge sofiya Dx); Mild persistent asthma without complication; Vaginal bacteriosis; Atypical chest pain; Adjustment disorder with mixed anxiety and depressed mood; Screening for lipid disorders; Obesity, Class I, BMI 30-34.9 Start: 07-25-2022 End: 07-25-2022 Patient encounter status Ila Canales MD Work Phone: [facility] Start: 06-27-2022 Telephone encounter Ginny babin APRN.CNP Work Phone: [facility] Comment on above: Results Start: 06-25-2022 Documentation procedure Mammog jesu Coordinator [facility] Start: 06-25-2022 Letter encounter Mammography Coordinator [facility] Department Start: 12-01-2021 ambulatory Ila burk MD Work Phone: Internal Medicine [facility] Start: 11-15-2021 End: 11-15-2021 Subsequent hospital visit by physician [facility] ([facility]) Work Phone: Cat [...] DTaP,Tdap,Td Vaccine (3 - Td or Tdap) [facility] Start: 09-14-2028 Screening for malign ant neoplasm of cervix [facility] Start: 07-02-2025 Annual PCP Team Director Of Infection Control jane Disease Visit Annual PCP Team Chronic Disease Visit [facility] Start: 02-03-2025 Influenza vaccination [facility] Start: 01-31-2025 End: 01-31-2025 Patient encounter procedure 01/31/2025 11:20 AM EDT Distance [facility] Internal [facility] ([facility]) [address] [facility] [address] FLO[address] [place], [place] [id number] Trini Blackburn DO [address] [place] [address] [facility] Internal Medicine [facility] ([facility]) Comment on above: Overall health Start: 09-17-2024 End: 09-17-2024 Patient encounter procedure 09/17/2024 9:00 AM EDT Office Visit OB/Gynecology [address] [place] [address] Nancy Viera APRN.ASSISTED LIVING CARE MANAGER [address] [place] [address] Annual OB/Gynecology Comment on above: Annual Start: 08-21-2024 Annual PCP Team Director Of Infection Control jane Disease Visit Annual PCP Team Chronic Disease Visit [facility] Start: 08-21-2024 Anxiety Screening Anxiety Screening [facility] Start: 08-21-2024 Depression Screening Depression Scre ening [facility] Start: 08-08-2024 End: 10-14-2024 MG Breast Screening [facility] SCREENING Radiology Routine Encounter for screening mammogram for breast cancer Expected: 08/08/2024 (Approximate), Expires: 10/14/2024 [facility] Work Phone: Comment on above: Expected: 08/08/2024 (Approximate), Expires: 10/14/2024 Start: 08-08-2024 Screening for malign ant neoplasm of breast Mammogram Screening [facility] Start: 08-08-2024 End: 08-08-2024 Patient encounter procedure 08/08/2024 7:50 AM EST Appointment Mammogram [address] [place] [address] Mammogram Start: 02-29-2024 End: 02-29-2024 Patient encounter procedure 02/29/2024 9:20 AM EDT Office Visit Family Practice [address] [place] [address] Ila Canales MD [address] [place] [address] 6 month follow up Family Practice Comment on above: 6 month follow up Start: 02-14-2024 End: 02-14-2024 Patient encounter procedure 02/14/2024 9:00 PM EDT Office Visit Neurology [address] [place] [address] Palpitations [R00.2]; Atypical chest pain [R07.89]; Systolic click [R01.1]; Daytime hypersomnolence [G47.19] Neurology Comment on above: Palpitations [R00.2] ; Atypical chest pain [R07.89]; Systolic click [R01.1]; Daytime hypersomnolence [G47.19] Start: 02-07-2024 End: 02-07-2024 Patient encounter procedure 02/07/2024 7:30 AM EDT Office Visit OB/Gynecology [address] [place], [place] [phone] Nancy Viera, PIPE FITTINGS MOLDER.ASSISTED LIVING CARE MANAGER [address] [place], [place] [id number] wt mgmt f/u OB/Gynecology Comment on above: wt mgmt f/u Start: 02-04-2024 Covid-19 Vaccine ( season) Covid-19 Vaccine () [facility] Start: 02-04-2024 Covid-19 Vaccine ( season) Covid-19 Vaccine () [facility] Start: 02-04-2024 Influenza vaccination C [facility] Start: 01-11-2024 Subsequent hospital visit by physician 01/11/2024 8:00 AM EDT Hospital Encounter Cardiology Lab [address] [place] [address] Palpitations [R00.2] Cardiology Lab Comment on above: Palpitations [R00.2] Start: 01-11-2024 End: 01-11-2024 Patient encounter procedure Cardiology Lab Comment on above: Palpitations [R00.2] Start: 12-21-2023 End: 12-21-2023 Patient encounter procedure 12/21/2023 8:00 AM EDT Office Visit OB/Gynecology [address] [place], [place] [phone] Nancy Viera, LALA.ASSISTED LIVING CARE MANAGER [address] [place], [place] [phone] New wt mgmt consult OB/Gynecology Comment on above: New wt mgmt consult Start: 12-14-2023 End: 12-14-2023 Patient encounter procedure 12/14/2023 3:00 PM EDT Office Visit Cardiology [address], [place] [phone] Juan Manuel Gayle DO [address] [place] [address] Palpitations [R00.2]; Atypical chest pain [R07.89]; Systolic click [R01.1] Cardiology Comment on above: Palpitations [R00.2] ; Atypical chest pain [R07.89]; Systolic click [R01.1] Start: 10-19-2023 End: 10-19-2023 Patient encounter procedure 10/19/2023 1:30 PM EDT Office Visit Podiatry [address] [place], [place] [phone] Benigno Liao [address] [place], [place] [phone] pt getting xray prior to visit Chronic [...] Malaise and fatigue Expected: 09/15/2023, Expires: 12/15/2023 [facility] Work Phone: Comment on above: Expected: 09/15/2023 , Expires: 12/15/2023 Start: 09-15-2023 End: 12-15-2023 CBC panel - Blood by Automated count COMPLETE BLOOD COUNT Lab Routine Class 1 obesity with body mass index (BMI) of 31.0 to 31.9 in adult, unspecified obesity type, unspecified whether serious comorbidity present Screening for deficiency anemia Expected: 09/15/2023, Expires: 12/15/2023 [facility] Work Phone: Comment on above: Expected: 09/15/2023 , Expires: 12/15/2023 Start: 09-15-2023 End: 12-15-2023 Comprehensive metabolic 2000 panel - Serum or Plasma COMPREHENSIVE METABOLIC PANEL Lab Routine Class 1 obesity with body mass index (BMI) of 31.0 to 31.9 in adult, unspecified obesity type, unspecified whether serious comorbidity present Screening for diabetes mellitus Screening for metabolic disorder Expected: 09/15/2023, Expires: 12/15/2023 [facility] Work Phone: Comment on above: Expected: 09/15/2023 , Expires: 12/15/2023 Start: 09-15-2023 End: 12-15-2023 Hemoglobin A1c in Blood HEMOGLOBIN A1C Lab Routine Class 1 obesity with body mass index (BMI) of 31.0 to 31.9 in adult, unspecified obesity type, unspecified whether serious comorbidity present Screening for diabetes mellitus Expected: 09/15/2023, Expires: 12/15/2023 [facility] Work Phone: Comment on above: Expected: 09/15/2023 , Expires: 12/15/2023 Start: 09-15-2023 End: 12-15-2023 Insulin [Units/volume] in Serum or Plasma INSULIN ASSAY BLOOD Lab Routine Class 1 obesity with body mass index (BMI) of 31.0 to 31.9 in adult, unspecified obesity type, unspecified whether serious comorbidity present Screening for diabetes mellitus Expected: 09/15/2023, Expires: 12/15/2023 [facility] Work Phone: Comment on above: Expected: 09/15/2023 , Expires: 12/15/2023 Start: 09-15-2023 End: 12-15-2023 Lipid 1996 panel - Serum or Plasma LIPID PANEL BASIC Lab Routine Class 1 obesity with body mass index (BMI) of 31.0 to 31.9 in adult, unspecified obesity type, unspecified whether serious comorbidity present Screening cholesterol level Expected: 09/15/2023, Expires: 12/15/2023 [facility] Work Phone: Comment on above: Expected: 09/15/2023 , Expires: 12/15/2023 Start: 09-15-2023 End: 12-15-2023 Thyrotropin [Units/volume] in Serum or Plasma THYROID STIMULATING HORMONE Lab Routine Class 1 obesity with body mass index (BMI) of 31.0 to 31.9 in adult, unspecified obesity type, unspecified whether serious comorbidity present Screening for thyroid disorder Malaise and fatigue Expected: 09/15/2023, Expires: 12/15/2023 [facility] Work Phone: Comment on above: Expected: 09/15/2023 , Expires: 12/15/2023 Start: 07-25-2023 ANNUAL PCP TEAM ROOF PAINTER JANE DISEASE VISIT ANNUAL PCP TEAM CHRONIC DISEASE VISIT [facility] Start: 07-25-2023 COVID-19 VACCINE (3 - Booster for Moderna series) COVID-19 VACCINE (3 - Booster for Moderna series) [facility] Comment on above: Postponed from 10/14 (Declined at this time) Start: 07-25-2023 PNEUMOCOCCAL (2 - PCV) PNEUMOCOCCAL (2 - PCV) [facility] Comment on above: Postponed from 06/17 (Declined at this time) Start: 07-25-2023 Pneumococcal vaccination [facility] Comment on above: Postponed from 06/17 (Declined at this time) Start: 07-25-2023 Urine microalbumin profile [facility] Comment on above: Postponed from 07/12 (Declined at this time) Start: 06-24-2023 Mammography [facility] Start: 06-24-2023 Screening for malign ant neoplasm of breast Mammogram Screening [facility] Start: 06-05-2023 Behavioral Health Screening Behavioral Health Screening [facility] Start: 06-05-2023 Depression Assessment Depression Ass essment [facility] Start: 05-30-2023 [facility] Start: 02-08-2023 HPV TESTING HPV TESTING [facility] Start: 02-08-2023 PAP TESTING PAP TESTING [facility] Start: 02-08-2023 Screening for malign ant neoplasm of cervix [facility] Start: 02-03-2023 Covid-19 Vaccine (3 - 2023-24 season) Covid-19 Vaccine () [facility] Start: 02-03-2023 Influenza vaccination C [facility] Start: 12-02-2022 Influenza vaccination INFLUENZA (#1) [facility] Comment on above: Postponed from 02/03 (Declined at this time) Start: 07-25-2022 End: 09-24-2022 CBC panel - Blood by Automated count CBC Lab Routine Atypical chest pain Expected: 07/25/2022, Expires: 09/24/2022 [facility] Work Phone: Comment on above: Expected: 07/25/2022 , Expires: 09/24/2022 Start: 07-25-2022 End: 09-24-2022 Comprehensive metabolic 2000 panel - Serum or Plasma COMP METABOLIC PANEL Lab Routine Atypical chest pain Expected: 07/25/2022, Expires: 09/24/2022 [facility] Work Phone: Comment on above: Expected: 07/25/2022 , Expires: 09/24/2022 Start: 07-25-2022 End: 09-24-2022 Lipid 1996 panel - Serum or Plasma LIPID PANEL BASIC Lab Routine Screening for lipid disorders Expected: 07/25/2022, Expires: 09/24/2022 [facility] Work Phone: Comment on above: Expected: 07/25/2022 , Expires: 09/24/2022 Start: 07-25-2022 End: 09-24-2022 Thyrotropin [Units/volume] in Serum or Plasma TSH BLD Lab Routine Atypical chest pain Adjustment disorder with mixed anxiety and depressed mood Expected: 07/25/2022, Expires: 09/24/2022 [facility] Work Phone: Comment on above: Expected: 07/25/2022 , Expires: 09/24/2022 Start: 07-01-2022 Adult depression screening assessment DEPRESSION SCREENING [facility] Start: 07-01-2022 ANNUAL PCP TEAM ROOF PAINTER JANE DISEASE VISIT ANNUAL PCP TEAM CHRONIC DISEASE VISIT [facility] Start: 06-05-2022 DEPRESSION ASSESSMENT DEPRESSION ASS ESSMENT [facility] Start: 02-03-2022 Influenza vaccination C [facility] Start: 01-19-2022 COVID-19 VACCINE (3 - Booster for Moderna series) COVID-19 VACCINE (3 - Booster for Moderna series) [facility] Start: 10-14-2021 COVID-19 VACCINE (3 - Booster for Moderna series) COVID-19 VACCINE (3 - Booster for Moderna series) [facility] Start: 2020 Mammography MAMMOGRAM [facility] Start: 07-12-2020 Urine microalbumin profile [facility] Start: 06-17-2012 PNEUMOCOCCAL (2 - PCV) PNEUMOCOCCAL (2 - PCV) [facility] Start: 09-13-2007 HPV Vaccine (1 - 3-d ose SCDM series) HPV Vaccine (1 - 3-dose SCDM series) [facility] Start: 09-13-1999 Hepatitis B Vaccine (1 of 3 - 19+ 3-dose series) Hepatitis B Vaccine (1 of 3 - 19+ 3-dose series) [facility] Start: 1998 Anxiety Screening Anxiety Screening [facility] Start: 1998 Depression Screening Depression Scre ening [facility] Start: 1998 SPIROMETRY SPIROMETRY [facility] Start: 1980 HEPATITIS B (1 of 3 - 3-dose series) HEPATITIS B (1 of 3 - 3-dose series) [facility] Start: 1980 Hepatitis B Vaccine (1 of 3 - 3-dose series) Hepatitis B Vaccine (1 of 3 - 3-dose series) [facility] BACTERIAL VAGINOSIS NAAT BACTERI AL VAGINOSIS NAAT Lab Routine Vaginal discharge Abdominal bloating 09/15/2023 12:22 PM EDT [facility] Work Phone: ROXANNE/TRICHOMONAS NAAT ROXANNE /TRICHOMONAS NAAT Lab Routine Vaginal discharge Abdominal bloating 09/15/2023 12:22 PM EDT [facility] Work Phone: Chlamydia trachomatis+Neisseria gonorrhoeae DNA [Presence] in Unspecified specimen by VIV with probe detection GONORRHEA/CHLAMYDIA NAAT Lab Routine Screen for STD (sexually transmitted disease) 09/15/2023 12:22 PM EDT [facility] Work Phone: End: 07-27-2023 Diagnostic mammography computer-aided detcj uni PERCY DIAGNOSTIC LT Radiology Routine Inconclusive mammogram 1 Occurrences starting 06/27/2022 until 07/27/2023 [facility] Work Phone: Comment on above: 1 Occurrences starti ng 06/27/2022 until 07/27/2023 ECG COMPLETE [facility] Work Phone: Comment on above: Ordered: 07/25/2022 End: 12-13-2024 Echocardiography ECHO Cardiology Routine Palpitations Atypical chest pain Systolic click Daytime hypersomnolence 1 Occurrences starting 12/14/2023 until 12/13/2024 [facility] Work Phone: Comment on above: 1 Occurrences starti ng 12/14/2023 until 12/13/2024 End: 12-13-2024 EXERCISE STRESS ECG (WITHOUT IMAGING) EXERCISE STRESS ECG (WITHOUT IMAGING) Cardiology Routine Palpitations Atypical chest pain Systolic click Daytime hypersomnolence 1 Occurrences starting 12/14/2023 until 12/13/2024 [facility] Comment on above: 1 Occurrences starti ng 12/14/2023 until 12/13/2024 End: 08-31-2024 MG Breast Screening PERCY SCREENING Radiology Routine Encounter for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 Telephone encounter Note Spoke to pt regarding reminder and instructions for stress test tomorrow. This included where to check in, length of test and no caffeine for 12 hours prior to test. [facility] 01-10-2024 Miscellaneous Notes Spoke to pt regarding reminder and instructions for stress test tomorrow. This included where to check in, length of test and no caffeine for 12 hours prior to test. 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 Spencer Mitchell MA Omeprazole prescribed and esomeprazole discontinued. Nancy Viera APRN.CNP Received prior authorization from patients pharmacy. Omeprazole delayed release capsules or Generic pantoprazole delayed release tablets are preferred. Are we able to use one of these options instead? Spencer Mitchell MA documented in this encounter [facility] 12-21-2023 Telephone encounter Note Omeprazole prescribed and esomeprazole discontinued. Nancy Viera APRN.CNP [facility] 12-21-2023 Telephone encounter Note Received prior authorization from patients pharmacy. Omeprazole delayed release capsules or Generic pantoprazole delayed release tablets are preferred. Are we able to use one of these options instead? Spencer Mitchell MA [facility] 12-21-2023 Instructions Nancy Viera APRN.ASSISTED LIVING CARE MANAGER - 12/21/2023 7:50 AM EDT Nexium generic [...] slots. This should not be done on [facility] as you will not be scheduled [...] that affects nearly one-third of the adult [place] population (approximately 60 million). The number of overweight and obese Americans has continued to increase since 1960, a trend that is not slowing down. Today, 64.5 percent of adult Americans (about 127 million) are categorized as being overweight or obese. Each year, obesity causes at least 300,000 excess deaths in the [place] and healthcare costs of [place] adults with obesity amount to approximately $100 [...] the gallbladder, breast, uterus, cervix, or ovaries https://my.[facility].org/healt h/diseases/25634-amxyuq-uwsjjecbxm-i atient-education - Eat primarily whole foods. Limit [...] (nih.gov) Is metformin a wonder drug? - [facility] Common side effects of this medication [...] associated with weight loss (RafaJodiereivan, 2019). https://ro.co/health-guide/wellbutri j-ywq-udcduj-loss/ Bupropion: Patient drug information Access [employer] (formerly [employer]) Online for additional drug information, tools, and databases. Copyright 5402-0640 [employer]. All rights reserved. Contributor Disclosures (For additional [...] much, and when it happened. Last Reviewed [id number] Consumer Information Use and Disclaimer This generalized [...] or approved for treating a specific patient. [employer]. and its affiliates disclaim any warranty or liability relating to this information or the use thereof. The use of this information is governed by the Terms of Use, available at https://www.woltersJobPlaneter.com/en/kno w/paijuyte-aillsrltvqwco-uipfd. 2021 [employer]. and its affiliates and/or licensors. All rights reserved. 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 Difficulty losing weight? Y recently History of weight loss with regain? Y - Last Wt 12/21/23 : 88 kg (194 lb) 5% weight loss = 184 lbs, 10% weight loss = 175 lbs [place] body weight: 57 kg (125 lb 10.6 [...] 3/week, OJ, tea with honey Bedtime - [id number] Quality of diet: 24hr recall suggests unhealthy diet. Characterization of diet:Unstructured, unhealthy snacking, excessive cravings, evening snacking, and increased consumption of sugar sweetened beverages. 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 TITO NO - apiarist ordered a sleep study, needs to schedule; CPAP NO Stress Stress:yes , Cause:Work, Financial, personal Obesity Related Comorbidities: Prior Weight Loss Surgery:No PAST MEDICAL HISTORY Diagnosis Date Human papillomavirus in conditions classified elsewhere and of unspecified site Menorrhagia resolved with ablation Migraines Unspecified asthma(493.90) PAST SURGICAL HISTORY Procedure Laterality Date ESSURE 2011 OFFICE ENDOMETRIAL ABLATION 2012 UNSPECIFIED ORAL SURGERY PROCEDURE, BY REPORT [place] teeth FAMILY HISTORY Problem Relation Age of [...] sedentary, second job active. 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 - BUPROPION HCL SR 150 [...] training and cardiovascular exercise is the best [place] [facility] [place] plan. An overall goal of 150-200 minutes [...] which included preparing to see the patient, iozu-fi-tcvy patient care, completing clinical documentation, obtaining and/or reviewing separately obtained history, performing a medically appropriate examination, counseling and educating the patient/family/caregiver, and ordering medications, tests, or procedures. documented in this encounter [facility] 12-14-2023 Nurse Note EVENT MONITOR DISPOSABLE PATCH INSTRUCTIONS Patient Name: Abdoul Vazquez [facility] Number: [id number] Skin prepped and cleansed with alcohol Patch secured to prepped area Monitor Activated Serial #: [id number] Patient Instructed: Prescribed order timeframe Bathing guidelines Usage of event button and diary documentation Return of monitor at the end of prescribed order Call with problems [phone] or [phone] ext. [phone] Patient expresses a good understanding of instructions Laura Duncan MA [facility] 12-14-2023 Nurse Note EVENT MONITOR DISPOSABLE PATCH INSTRUCTIONS Patient Name: Abdoul Faith Clinic Number: [id number] Skin prepped and cleansed with alcohol Patch secured to prepped area Monitor Activated Serial #: [id number] Patient Instructed: Prescribed order timeframe Bathing guidelines Usage of event button and diary documentation Return of monitor at the end of prescribed order Call with problems [phone] or [phone] ext. [phone] Patient expresses a good understanding of instructions Laura Duncan MA documented in this encounter [facility] 12-14-2023 Telephone encounter Note Please call Pt to schedule Echo and Stress ECG ordered by Dr Gayle today. [facility] 12-14-2023 Miscellaneous Notes Please call Pt to schedule Echo and Stress ECG ordered by Dr Gayle today. documented in this encounter [facility] 12-14-2023 Note HNO ID: [id number] Author: JUAN MANUEL GAYLE, DO Service: ? Author Type: Physician Type: Progress Notes Filed: 12/14/2023 17:00 Note Text: [facility] SE[facility] OUTPATIENT VISIT DATE December 14, 2023 PRIMARY CARE PHYSICIAN: Ila Canales [address] [place] [address] [place] [address] HISTORY OF PRESENT ILLNESS: Ms. Faith is [...] the parents. 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 She is a non-smoker, social drinker. She [...] provokable response and possible dysrhythmia 3. 14-day front desk monitor. The patient may however take this [...] for leg swelling. (more content not included)... [facility] 12-14-2023 History of Present illness Narrative Images from the original note were not included. [facility] [facility] OUTPATIENT VISIT DATE December 14, 2023 PRIMARY CARE PHYSICIAN: Ila Canales [address] [place] [address] [place] [address] HISTORY OF PRESENT ILLNESS: Ms. Faith is [...] the parents. 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 She is a non-smoker, social drinker. She [...] provokable response and possible dysrhythmia 3. 14-day front desk monitor. The patient may however take this [...] 2011 UNSPECIFIED ORAL SURGERY PROCEDURE, BY REPORT [place] Social History Tobacco Use Smoking status: [...] day. Juan Manuel Gayle, , FACC, FAC Gang Worker, [facility] Ambulatory Cardiology Gang Worker, [facility] Cardiac Rehabilitation Gang Worker, [facility] Cardiac Rehabilitation Gang Worker, [facility] Congestive Heart Failure Clinic Gang Worker, [facility] Ambulatory Cardiology Clinical Metallurgical Laboratory Assistant Profressor of Medicine, [facility] Staff Mess Cook, Erick Vanegas Department of Cardiovascular Medicine/Heart and Vascular [place], [facility] Please note: This note has been produced using speech recognition software and may contain errors related to that system including joann, punctuation, spelling, words, gender and phrases that may be inappropriate. documented in this encounter [facility] 11-22-2023 Telephone encounter Note Pharmacy verified in [facility] Patient has been identified by name [...] 09/18/2023 5.1 Please advise. ANJU RUIZ MA [facility] 11-22-2023 Miscellaneous Notes Pharmacy verified in [facility] Patient has been identified by name [...] ANJU RUIZ MA documented in this encounter [facility] 10-04-2023 Telephone encounter Note 2nd attempt,left VM [facility] 10-04-2023 Miscellaneous Notes 2nd attempt,left VM Dr. Fernandes appfady cancelled and new appt in [place] scheduled. 1st attempt to notify pt, sent MC message and LVM. documented in this encounter [facility] 10-02-[address] Dena galan cancelled and new appt in [place] scheduled. 1st attempt to notify pt, sent MC message and LVM. [facility] 09-15-2023 Instructions Nancy Viera APRN.ASSISTED LIVING CARE MANAGER - 09/15/2023 12:02 PM EDT - Eat [...] immediately a meal. documented in this encounter [facility] 09-15-2023 History of Present illness Narrative Chemical Checker offered: Patient declines. Abdoul is a 43 [...] L3 SAB0 IAB0 Ectopic0 Multiple0 Live Births3 Test Lead History LMP: 08/01/2023 (Approximate), Ablation Age at Menarche: Age at First : Age at Menopause: Test Lead History Comments: Sexual Activity: Yes; Male; essure- ablation Contraception: Other PAST MEDICAL HISTORY Diagnosis Date Human papillomavirus in conditions classified elsewhere and of unspecified site Menorrhagia resolved with ablation Unspecified asthma(493.90) PAST SURGICAL HISTORY Procedure Laterality Date ESSURE 2012 OFFICE ENDOMETRIAL ABLATION 2011 UNSPECIFIED ORAL SURGERY PROCEDURE, BY REPORT [place] FAMILY HISTORY Problem Relation Age of [...] external genitalia normal, normal [place]'s glands, urethra, [place]'s glands, no vulvar lesions, no cervical [...] - THYROID STIMULATING HORMONE - CONSULT TO [facility] WEIGHT MANAGEMENT PROGRAM - Eat primarily [...] 4 - Moderate documented in this encounter [facility] 08-22-2023 History of Present illness [...] 2011 UNSPECIFIED ORAL SURGERY PROCEDURE, BY REPORT [place] ALLERGIES Augmentin [Amoxicillin-Pot Clavulanate] and Seasonal [...] VACCINE, AGE 7+ YR, 5 LF TETANUS ([facility]) Requested Prescriptions Signed Prescriptions Disp Refills [...] 2023 4:33 PM documented in this encounter [facility] 08-10-2023 Miscellaneous Notes August 10, 2023 PID: [id number] Abdoul Faith [address] [place], [place] [id number] Dear Ms. Faith, We are pleased to [...] report will be kept on file at [facility] as part of your permanent medical record and are available for your continuing care. Thank you for allowing us to help in meeting your health care needs. Sincerely, Dr. Flores Interpreting Radiologist [facility] (Normal over 40) documented in this encounter [facility] 08-09-2023 History of Present illness [...] PATIENT PRESENTS WITH AN IMPLANTABLE OR ATTACHED DECK ENGINEER: No RADIOLOGY DEPARTMENT: Mammography PERIPHERAL IV DATA: Not applicable SIGNED BY: Abdoul Garcia Alchimero Shauna August 09, 2023 1:39 PM documented in this encounter [facility] 05-22-2023 History of Present illness [...] 2023 10:16 AM documented in this encounter [facility] 05-20-2023 History of Present illness [...] César Fernandez MD documented in this encounter [facility] 05-15-2023 Miscellaneous Notes Called patient. Verified name and date of . Scheduled appointment. Jennifer Doe LPN Images from the original note were not included. Dilip Loving PA-C [facility] Urology Pool 3 days ago Not seen in over a year, need visit and urine testing documented in this encounter [facility] 05-08-2023 Miscellaneous Notes Pharmacy verified in [facility] Patient has been identified by name [...] advise. Reina Null documented in this encounter [facility] 04-12-2023 Miscellaneous Notes Pharmacy verified in [facility] Patient has been identified by name [...] Michelle Brown LPN documented in this encounter [facility] 04-02-2023 History of Present illness Narrative This note was created using AlertaPhoneriter. Subjective Abdoul Faith is a 42 year [...] No diarrhea or vomiting. She used multiple kiyp-fju-iuoidlo cough and cold medicines without relief. She [...] 2012 UNSPECIFIED ORAL SURGERY PROCEDURE, BY REPORT [place] FAMILY HISTORY Problem Relation Age of [...] Aminah Yo PA-C documented in this encounter [facility] 10-13-2022 Miscellaneous Notes Patient phones requesting refills as follows: LAST REFILL 07/25/22 LAST OV 07/25/22 Requested Prescriptions Pending Prescriptions Disp Refills albuterol HFA (VENTOLIN HFA) 90 mcg/actuation inhaler 18 g 0 Sig: Inhale 2 Puffs as instructed every 4 hours as needed for wheezing/shortness of breath. Please review and advise. Chloe Waddell LPN documented in this encounter [facility] 09-21-2022 Miscellaneous Notes Spoke with [...] blood in urine. documented in this encounter [facility] 07-25-2022 History of Present illness [...] 2012 UNSPECIFIED ORAL SURGERY PROCEDURE, BY REPORT [place] FAMILY HISTORY Problem Relation Age of [...] 2022 5:16 PM documented in this encounter [facility] 06-29-2022 Miscellaneous Notes Third attempt to reach; called patient at [phone]. Left message on voicemail for patient to return call or check MyChart for message from provider. No contact made after 3 attempts. MyChart message sent. Called patient at [phone], left message on voicemail for patient to [...] Ginny Gongora APRN.SIDNEY documented in this encounter [facility] 06-25-2022 Miscellaneous Notes June 27, 2022 PID: [id number] Abdoul Faith [address] [place] [address] Dear Ms. Faith, Your recent breast imaging [...] who ordered/prescribed your screening mammogram: Please call [phone] or EXT: [phone] to schedule an appointment for your additional [...] and reports are kept on file at [facility] as part of your permanent medical record, and are available for your continuing care. Thank you for allowing us to help in meeting your health care needs. Sincerely, Dr. Escobedo Interpreting Radiologist [facility] (Additional imaging) documented in this encounter [facility] 11-15-2021 History of Present illness [...] summary Note Date/Time March 13, 2025 12:58pm [facility] Medical Records Department [address] [place] [address] Emergency Department Summary 03/13/25 MR#: [id number] Acct: [id number] Name: ABDOUL FAITH Rep #:[id number] : [...] 71.4 H Lymph % (Auto) 17.5 L [place] % (Auto) 6.3 Eos % (Auto) 4.0 [...] Sl. Cloudy Urine pH 6.0 Ur Specific [place] 1.020 Urine Protein 30 H Urine Glucose [...] right kidney. Normal appendix Cholelithiasis Reading Location: [facility] Discharge Plan Triage Chief Complaint: Abd Pain [...] Dr. Edilma Ritter of urology. Print Language: [place] Disposition Disposition: Home, Self Care What to do if you have Problems For any increased pain, shortness of breath, bleeding, nausea or vomiting, chestpain, or any unexpected problems, contact your Primary Care Provider. Call [facility] ([phone]) or report to the closest Emergency Room. Call 911 if necessary. 03/13/25 1717 <Electronically signed by Derek Sanchez MD> Cosigner Signature (if applicable): CC: Dr. Rj Canales MD ~ Signed [facility] Work Phone: Evaluation note* Diagnosis Recurrent UTI (urinary tract infection) Urinary tract infection, site not specified [facility]* Diagnosis Encounter for screening mammogram for breast cancer documented [facility] this [facility]* Diagnosis Inconclusive mammogram- Primary documented [facility] this [facility]* Diagnosis Well adult exam- Primary Routine general medical examination at a health care facility Mild persistent asthma without complication Unspecified asthma Vaginal bacteriosis Vaginitis and vulvovaginitis, unspecified Atypical chest pain Other chest pain Adjustment disorder with mixed anxiety and depressed mood Screening for lipid disorders Obesity, Class I, BMI 30-34.9 Obesity, unspecified [facility] Diagnosis Mild persistent asthma without complication Unspecified asthma [facility]* Diagnosis LRTI (lower respiratory tract infection)- Primary Other diseases of respiratory system, not elsewhere classified documented [facility] this [facility]* Diagnosis Mild persistent asthma without complication Unspecified asthma documented [facility] this [facility]* Diagnosis Recurrent UTI (urinary tract infection) Urinary tract infection, site not specified documented [facility] this [facility]* Diagnosis Subacute cough- Primary Cough Hemoptysis Hemoptysis, unspecified Hoarse voice quality Dysphonia Asthma with acute exacerbation, unspecified asthma severity, unspecified whether persistent Acute non-recurrent sinusitis, unspecified location Mild persistent asthma without complication Unspecified asthma documented in this encounter [facility] noteNo assessment information availableWBluffton [facility] Work Phone: Evaluation note* Diagnosis Encounter for screening mammogram for breast cancer [facility]* Diagnosis Well adult exam- Primary Routine general medical examination at a health care facility Mild persistent asthma without complication Unspecified asthma Neck pain on left side Cervicalgia Cervicogenic headache Headache Palpitations Atypical chest pain Other chest pain Systolic click Undiagnosed cardiac murmurs Chronic foot pain, left Tetanus-diphtheria (Td) vaccination Need for prophylactic vaccination with tetanus-diphtheria (Td) documented [facility] Diagnosis Encounter for gynecological [...] serious comorbidity present [facility] this [facility]* Diagnosis Palpitations- Primary Atypical chest pain Other chest pain Systolic click Undiagnosed cardiac murmurs FINLEY (dyspnea on exertion) Other dyspnea and respiratory abnormality Daytime hypersomnolence Hypersomnia, unspecified documented in this [facility]* Diagnosis Gastroesophageal reflux disease, unspecified whether [...] serious comorbidity present documented [facility] this [facility]* Diagnosis Gastroesophageal reflux disease, unspecified whether esophagitis present- Primary documented in this encounter [facility]* Diagnosis Gastroesophageal reflux disease, unspecified whether esophagitis present [facility] this [facility]* Diagnosis Mild persistent asthma without complication Unspecified asthma [facility]* Diagnosis Subacute cough Cough Hemoptysis Hemoptysis, unspecified documented in this encounter [facility]* Diagnosis Depression, unspecified depression type- Primary Mild persistent asthma without complication Unspecified asthma Obesity (BMI 30.0-34.9) Obesity, unspecified Palpitations Lightheadedness Dizziness and giddiness documented in this encounter [facility]* Diagnosis Mild persistent asthma without complication Unspecified asthma documented in this encounter [facility]* Diagnosis Mild persistent asthma without complication- Primary Unspecified asthma documented in this encounter [facility]* Diagnosis Depression, unspecified depression type documented in this encounter [facility]* Diagnosis Mild persistent asthma without complication (HCC) Unspecified asthma documented in this encounter [facility] Discharge instructionsAdditional Instructions You have a [...] and follow-up with Dr. Edilma Ritter of urology.[facility] Work Phone: Reason for referral (narrative)* Diagnostic Procedure Only (Routine) - Pending Review Specialty Diagnoses / Procedures Referred By Renzo t Referred To Contact [facility] Diagnoses Encounter for screening mammogram for breast cancer Procedures PERCY SCREENING SCREENING MAMMOGRAPHY BI 2-VIEW BREAST INC Ila He MD [address] [place] [address] [place] [address] [facility] [address] [place] [id number] Referral ID Status Reason Start Date Expiration Date Visits Requested Visits Authorized [id number] Pending Review Auto-Generat ed Referral 12/01/2021 12/31/2022 1 1 [facility] for referral (narrative)* Diagnostic Procedure Only (Routine) - Authorized Specialty Diagnoses / Procedures Referred By Contac t Referred To Contact [facility] Diagnoses Inconclusive mammogram Procedures US BREAST LTD LT US BREAST UNI REAL TIME WITH IMAGE LIMITED Ginny Gongora APRN.CNP [address] [place] [address] [facility] [address] [place] [address] Referral ID Status Reason Start Date Expiration Date Visits Requested Visits Authorized [id number] Authorized Auto-Generat ed Referral 06/27/2022 07/27/2023 1 1 * Diagnostic Procedure Only (Routine) - Authorized Specialty Diagnoses / Procedures [facility] To Contact [facility] Diagnoses Inconclusive mammogram Procedures PERCY DIAGNOSTIC LT DIAGNOSTIC MAMMOGRAPHY COMPUTER-AIDED DETCJ UNI Ginny Gongora APRN.CNP [address] [place] [address] [facility] [address] [place] [address] Referral ID Status Reason Start Date Expiration Date Visits Requested Visits Authorized [id number] Authorized Auto-Generat ed Referral 06/27/2022 07/27/2023 1 1 [facility] for referral (narrative)* Outpatient Procedure (Routine) - Closed Specialty Diagnoses / Procedures [facility] Diagnoses Atypical chest pain Procedures ECG COMPLETE ECG ROUTINE ECG W/LEAST 12 LDS W/I&R Ila Canales MD [address] [place] [address] [facility] [place] [address] [place] [address] Referral ID Status Reason Start Date Expiration Date V isits Requested Visits Authorized [id number] Closed Auto-Generate d Referral 07/25/2022 07/25/2023 1 1 [facility] for referral (narrative)* Diagnostic Procedure Only (Routine) - Authorized Specialty Diagnoses / Procedures Referred By Renzo t Referred To Contact [facility] Diagnoses Encounter for screening mammogram for breast cancer Procedures PERCY SCREENING SCREENING MAMMOGRAPHY BI 2-VIEW BREAST INC CAD Javon, Ila Olivia MD [address] [place] [address] [place] [address] [facility] [address] [place] [address] Referral ID Status Reason Start Date Expiration Date Visits Requested Visits Authorized [id number] Authorized Auto-Generat ed Referral 08/02/2023 08/31/2024 1 1 [facility] for referral (narrative)* Outpatient Procedure (Routine) - New Request Specialty Diagnoses / Procedures Referred By Renzo shrestha Referred To Contact [facility] Diagnoses Palpitations Atypical chest pain Systolic click Daytime hypersomnolence Procedures EXERCISE STRESS ECG (WITHOUT IMAGING) Juan Manuel Gayle DO [address] [place] [address] [address] Referral ID Status Reason Start Date Expiration Date Visits Requested Visits Authorized [id number] New Request Auto-Generat ed Referral 12/14/2023 12/13/2024 1 1 * Outpatient Procedure (Routine) - New Request Specialty Diagnoses / Procedures Referred By Renzo shrestha Referred To Contact [facility] Diagnoses Palpitations Atypical chest pain Systolic click Daytime hypersomnolence Procedures ECHO ECHO TTHRC R-T 2D W/WOM-MODE COMPL SPEC&COLR D Juan Manuel Gayle DO [address] [place] [address] [address] Referral ID Status Reason Start Date Expiration Date Visits Requested Visits Authorized [id number] New Request Auto-Generat ed Referral 12/14/2023 12/13/2024 1 1 [facility] ([facility])No reason for referral information availableWBluffton Hospital Work Phone: Reason for visit Narrative* Diagnostic Procedure Only (Routine) - Closed Specialty Diagnoses / Procedures Referred By Renzo shrestha Referred To Contact [facility] Diagnoses Encounter for screening mammogram for breast cancer Procedures PERCY SCREENING SCREENING MAMMOGRAPHY BI 2-VIEW BREAST INC Ila He MD [address] [place] [address] [facility] [address] [place] [address] Referral ID Status Reason Start Date Expiration Date V isits Requested Visits Authorized [id number] Closed Auto-Generate d Referral 08/02/2023 08/31/2024 1 1 [facility] Summary Purpose Family History No Family History Records Found Relationship Condition Age at Onset Recorded Date/T rodney father Asthma Unknown Obesity Unknown grandfather Chronic obstructive pulmonary disease Unk nown son Asthma Unknown mother Obesity Unknown Advance Directives No Advanced Directives Records Found Advance Directive Response Recorded Date/ Time Living Will No May 30 023 9:09am Power of Corporate Travel Consultant No May 30, 2023 9:09am Advance Directive Response Recorded Date/ Time Do you have a Healthcare Power of Corporate Travel Consultant? No March 13, 2025 9:31am Reason for Referral Specialty Diagnoses / Procedures Referred By Renzo shrestha Referred To Contact CT IMAGING Diagnoses Recurrent UTI (urinary tract infection) Procedures CT FLANK WO IVCON CT ABD & PELVIS W/O CONTRAST Dilip Loving PA-C [address] [place] [address] Ct [facility] Referral ID Status Reason Start Date Expiration Date V isits Requested Visits Authorized [id number] Closed Auto-Generate d Referral 11/05/2021 12/20/2021 1 1 Specialty Diagnoses / Procedures Referred By Renzo shrestha Referred To Contact Diagnoses Mild persistent asthma without complication Ginny Gongora, LALA.ASSISTED LIVING CARE MANAGER [address] [place] [address] Referral ID Status Reason Start Date Expiration Date V isits Requested Visits Authorized [id number] Pending Review 1 1 Specialty Diagnoses / Procedures Referred By Contac t Referred To Contact Diagnoses Mild persistent asthma without complication César Fernandez MD [address] [place] [address] Referral ID Status Reason Start Date Expiration Date Visits Re quested Visits Authorized [id number] Closed 1 1 Specialty Diagnoses / Procedures Referred By Contac t Referred To Contact Neurology Diagnoses Neck pain on left side Cervicogenic headache Procedures CONSULT TO NEUROLOGY OFFICE/OUTPATIENT [facility] 60 MINUTES Ila Canales MD [address] [place] [address] Referral ID Status Reason Start Date Expiration Date Visits Requested Visits Authorized [id number] Authorized PCP Requested Referral 08/22/2023 08/21/2024 1 1 Specialty Diagnoses / Procedures Referred By Contac t Referred To Contact Cardiology Diagnoses Palpitations Atypical chest pain Systolic click Procedures CONSULT TO CARDIOLOGY OFFICE/OUTPATIENT [facility] 60 MINUTES Ila Canales MD [address] [place] [address] Referral ID Status Reason Start Date Expiration Date Visits Requested Visits Authorized [id number] Authorized PCP Requested Referral 08/22/2023 08/21/2024 1 1 Specialty Diagnoses / Procedures Referred By Contac t Referred To Contact XR IMAGING Diagnoses Chronic foot pain, left Procedures XR FOOT GENERAL 3V AP/LAT/OBL LEFT RADEX FOOT COMPLETE MINIMUM 3 VIEWS Ila Canales MD [address] [place] [address] [place] [address] Referral ID Status Reason Start Date Expiration Date Visits Requested Visits Authorized [id number] Pending Review Auto-Generat ed Referral 08/22/2023 09/20/2024 1 1 Specialty Diagnoses / Procedures Referred By Contac t Referred To Contact Podiatry Diagnoses Chronic foot pain, left Procedures CONSULT TO PODIATRY OFFICE/OUTPATIENT [facility] 60 MINUTES Ila Canales MD [address] [place] [address] Referral ID Status Reason Start Date Expiration Date Visits Requested Visits Authorized [id number] Authorized PCP Requested Referral 08/22/2023 08/21/2024 1 1 Specialty Diagnoses / Procedures Referred By Contac t Referred To Contact CURRICULUM DESIGNER Diagnoses Class 1 obesity with body mass index (BMI) of 31.0 to 31.9 in adult, unspecified obesity type, unspecified whether serious comorbidity present Procedures CONSULT TO [facility] WE[facility] OFFICE/OUTPATIENT [facility] 60 MINUTES Nancy Viera APRN.ASSISTED LIVING CARE MANAGER [address] [place] [address] Nancy Viera APRN.ASSISTED LIVING CARE MANAGER [address] [place] [address] Referral ID Status Reason Start Date Expiration Date Visits Requested Visits Authorized [id number] Authorized PCP Requested Referral Auto-Generate d Referral 09/15/2023 09/14/2024 1 1 Specialty Diagnoses / Procedures Referred By Antelmoac t Referred To Contact [facility] Diagnoses Encounter for screening mammogram for breast cancer Procedures PERCY SCREENING SCREENING MAMMOGRAPHY BI 2-VIEW BREAST INC CAD Nancy Viera APRN.ASSISTED LIVING CARE MANAGER [address] [place] [address] [facility] [address] [place] [address] Referral ID Status Reason Start Date Expiration Date Visits Requested Visits Authorized [id number] Pending Review Auto-Generat ed Referral 08/08/2024 10/14/2024 1 1 Specialty Diagnoses / Procedures Referred By Contac t Referred To Contact Cardiology Diagnoses Palpitations Lightheadedness Procedures CONSULT TO CARDIOLOGY OFFICE/OUTPATIENT [facility] 60 MINUTES Benigno Laguerre, DO [address] [facility] [address] [place] [address] Referral ID Status Reason Start Date Expiration Date Visits Requested Visits Authorized [id number] Pending Review PCP Requested Referral 07/02/2024 07/02/2025 1 1 Specialty Diagnoses / Procedures Referred By Contac t Referred To Contact [facility] Diagnoses Mild persistent asthma without complication Procedures SPIROMETRY - BASELINE AND POST DILATOR BRNCDILAT RSPSE SPMTRY PRE&POST-BRNCDILAT ADMBenigno Oconnor, DO [address] [facility] [address] [place] [address] Res[facility] [place] [address] [place] [address] Referral ID Status Reason Start Date Expiration Date Visits Requested Visits Authorized [id number] New Request Auto-Generat ed Referral 07/02/2024 08/01/2025 1 1 Chief Complaint and Reason for Visit Chief Complaint SHORTNESS OF BREATH Chief Complaint Admit Date pelvic pain March 13, 2025 9: 24am Additional Source Comments INFORMATION SOURCE (unrecogn ized section and content) DATE CREATED AUTHOR 12/23/2019 [facility] DATE CREATED AUTHOR AUTHOR'S ORGANIZ ATION 01/12/2024 [facility] DATE CREATED AUTHOR AUTHOR'S ORGANIZ ATION 11/25/2024 [facility] DATE CREATED AUTHOR AUTHOR'S ORGANIZ ATION 03/29/2025 [facility] DATE CREATED AUTHOR AUTHOR'S ORGANIZ ATION 03/30/2025 [facility] Source Comments (unrecognize d section and content) In the event this informatio n is protected by the Federal Confidentiality of Alcohol and Drug Abuse Patient Records regulations: The Federal rules restrict any use of the information to criminally investigate or prosecute any alcohol or drug abuse patient.[facility] CenterIn the event this information is protected by the Federal Confidentiality of Alcohol and Drug Abuse Patient Records regulations: The Federal rules restrict any use of the information to criminally investigate or prosecute any alcohol or drug abuse patient.[facility] CenterIn the event this information is protected by the Federal Confidentiality of Alcohol and Drug Abuse Patient Records regulations: The Federal rules restrict any use of the information to criminally investigate or prosecute any alcohol or drug abuse patient.[facility] CenterIn the event this information is protected by the Federal Confidentiality of Alcohol and Drug Abuse Patient Records regulations: The Federal rules restrict any use of the information to criminally investigate or prosecute any alcohol or drug abuse patient.[facility] CenterIn the event this information is protected by the Federal Confidentiality of Alcohol and Drug Abuse Patient Records regulations: The Federal rules restrict any use of the information to criminally investigate or prosecute any alcohol or drug abuse patient.[facility] CenterIn the event this information is protected by the Federal Confidentiality of Alcohol and Drug Abuse Patient Records regulations: The Federal rules restrict any use of the information to criminally investigate or prosecute any alcohol or drug abuse patient.[facility] CenterIn the event this information is protected by the Federal Confidentiality of Alcohol and Drug Abuse Patient Records regulations: The Federal rules restrict any use of the information to criminally investigate or prosecute any alcohol or drug abuse patient.[facility] CenterIn the event this information is protected by the Federal Confidentiality of Alcohol and Drug Abuse Patient Records regulations: The Federal rules restrict any use of the information to criminally investigate or prosecute any alcohol or drug abuse patient.[facility] CenterIn the event this information is protected by the Federal Confidentiality of Alcohol and Drug Abuse Patient Records regulations: The Federal rules restrict any use of the information to criminally investigate or prosecute any alcohol or drug abuse patient.[facility] CenterIn the event this information is protected by the Federal Confidentiality of Alcohol and Drug Abuse Patient Records regulations: The Federal rules restrict any use of the information to criminally investigate or prosecute any alcohol or drug abuse patient.[facility] CenterIn the event this information is protected by the Federal Confidentiality of Alcohol and Drug Abuse Patient Records regulations: The Federal rules restrict any use of the information to criminally investigate or prosecute any alcohol or drug abuse patient.[facility] CenterIn the event this information is protected by the Federal Confidentiality of Alcohol and Drug Abuse Patient Records regulations: The Federal rules restrict any use of the information to criminally investigate or prosecute any alcohol or drug abuse patient.[facility] CenterIn the event this information is protected by the Federal Confidentiality of Alcohol and Drug Abuse Patient Records regulations: The Federal rules restrict any use of the information to criminally investigate or prosecute any alcohol or drug abuse patient.[facility] CenterIn the event this information is protected by the Federal Confidentiality of Alcohol and Drug Abuse Patient Records regulations: The Federal rules restrict any use of the information to criminally investigate or prosecute any alcohol or drug abuse patient.[facility] CenterIn the event this information is protected by the Federal Confidentiality of Alcohol and Drug Abuse Patient Records regulations: The Federal rules restrict any use of the information to criminally investigate or prosecute any alcohol or drug abuse patient.[facility] CenterIn the event this information is protected by the Federal Confidentiality of Alcohol and Drug Abuse Patient Records regulations: The Federal rules restrict any use of the information to criminally investigate or prosecute any alcohol or drug abuse patient.[facility] CenterIn the event this information is protected by the Federal Confidentiality of Alcohol and Drug Abuse Patient Records regulations: The Federal rules restrict any use of the information to criminally investigate or prosecute any alcohol or drug abuse patient.[facility] CenterIn the event this information is protected by the Federal Confidentiality of Alcohol and Drug Abuse Patient Records regulations: The Federal rules restrict any use of the information to criminally investigate or prosecute any alcohol or drug abuse patient.[facility] CenterIn the event this information is protected by the Federal Confidentiality of Alcohol and Drug Abuse Patient Records regulations: The Federal rules restrict any use of the information to criminally investigate or prosecute any alcohol or drug abuse patient.[facility] CenterIn the event this information is protected by the Federal Confidentiality of Alcohol and Drug Abuse Patient Records regulations: The Federal rules restrict any use of the information to criminally investigate or prosecute any alcohol or drug abuse patient.[facility] CenterIn the event this information is protected by the Federal Confidentiality of Alcohol and Drug Abuse Patient Records regulations: The Federal rules restrict any use of the information to criminally investigate or prosecute any alcohol or drug abuse patient.[facility] CenterIn the event this information is protected by the Federal Confidentiality of Alcohol and Drug Abuse Patient Records regulations: The Federal rules restrict any use of the information to criminally investigate or prosecute any alcohol or drug abuse patient.[facility] CenterIn the event this information is protected by the Federal Confidentiality of Alcohol and Drug Abuse Patient Records regulations: The Federal rules restrict any use of the information to criminally investigate or prosecute any alcohol or drug abuse patient.[facility] CenterIn the event this information is protected by the Federal Confidentiality of Alcohol and Drug Abuse Patient Records regulations: The Federal rules restrict any use of the information to criminally investigate or prosecute any alcohol or drug abuse patient.[facility] CenterIn the event this information is protected by the Federal Confidentiality of Alcohol and Drug Abuse Patient Records regulations: The Federal rules restrict any use of the information to criminally investigate or prosecute any alcohol or drug abuse patient.[facility] CenterIn the event this information is protected by the Federal Confidentiality of Alcohol and Drug Abuse Patient Records regulations: The Federal rules restrict any use of the information to criminally investigate or prosecute any alcohol or drug abuse patient.[facility] CenterIn the event this information is protected by the Federal Confidentiality of Alcohol and Drug Abuse Patient Records regulations: The Federal rules restrict any use of the information to criminally investigate or prosecute any alcohol or drug abuse patient.[facility] CenterIn the event this information is protected by the Federal Confidentiality of Alcohol and Drug Abuse Patient Records regulations: The Federal rules restrict any use of the information to criminally investigate or prosecute any alcohol or drug abuse patient.[facility] CenterIn the event this information is protected by the Federal Confidentiality of Alcohol and Drug Abuse Patient Records regulations: The Federal rules restrict any use of the information to criminally investigate or prosecute any alcohol or drug abuse patient.[facility] CenterIn the event this information is protected by the Federal Confidentiality of Alcohol and Drug Abuse Patient Records regulations: The Federal rules restrict any use of the information to criminally investigate or prosecute any alcohol or drug abuse patient.[facility] CenterIn the event this information is protected by the Federal Confidentiality of Alcohol and Drug Abuse Patient Records regulations: The Federal rules restrict any use of the information to criminally investigate or prosecute any alcohol or drug abuse patient.[facility] CenterIn the event this information is protected by the Federal Confidentiality of Alcohol and Drug Abuse Patient Records regulations: The Federal rules restrict any use of the information to criminally investigate or prosecute any alcohol or drug abuse patient.[facility] CenterIn the event this information is protected by the Federal Confidentiality of Alcohol and Drug Abuse Patient Records regulations: The Federal rules restrict any use of the information to criminally investigate or prosecute any alcohol or drug abuse patient.[facility] CenterIn the event this information is protected by the Federal Confidentiality of Alcohol and Drug Abuse Patient Records regulations: The Federal rules restrict any use of the information to criminally investigate or prosecute any alcohol or drug abuse patient.[facility] CenterIn the event this information is protected by the Federal Confidentiality of Alcohol and Drug Abuse Patient Records regulations: The Federal rules restrict any use of the information to criminally investigate or prosecute any alcohol or drug abuse patient.[facility] CenterIn the event this information is protected by the Federal Confidentiality of Alcohol and Drug Abuse Patient Records regulations: The Federal rules restrict any use of the information to criminally investigate or prosecute any alcohol or drug abuse patient.[facility] CenterIn the event this information is protected by the Federal Confidentiality of Alcohol and Drug Abuse Patient Records regulations: The Federal rules restrict any use of the information to criminally investigate or prosecute any alcohol or drug abuse patient.[facility] CenterIn the event this information is protected by the Federal Confidentiality of Alcohol and Drug Abuse Patient Records regulations: The Federal rules restrict any use of the information to criminally investigate or prosecute any alcohol or drug abuse patient.[facility] CenterIn the event this information is protected by the Federal Confidentiality of Alcohol and Drug Abuse Patient Records regulations: The Federal rules restrict any use of the information to criminally investigate or prosecute any alcohol or drug abuse patient.[facility] Reason for Visit (unrecogniz ed section and content) Reason Comments Radiology CT Specialty Diagnoses / Procedures Referred By Contac t Referred To Contact CT IMAGING Diagnoses Recurrent UTI (urinary tract infection) Procedures CT FLANK WO IVCON CT ABD & PELVIS W/O CONTRAST Dilip Loving PA-C [address] [place] [address] Ct Imaging Referral ID Status Reason Start Date Expiration Date V isits Requested Visits Authorized [id number] Closed Auto-Generate d Referral 11/05/2021 12/20/2021 1 [...] MDM 60 MINUTES Ila Canales MD [address] [place] [address] Referral ID Status Reason Start Date Expiration Date V isits Requested Visits Authorized [id number] Closed PCP Requested Referral 08/22/2023 08/21/2024 1 1 Reason Onset Date Comments Weight Management Weight Management 12/21/2023 Reason Comments Insurance Authorization Reason Comments Reminder Call Reason Comments PSG Check In Reason Comments Received Outside Medical Records [facility] 02/09 Reason Comments Establish Care Specialty Diagnoses / Procedures Referred By Renzo t Referred To Contact INTERNAL MEDICINE Diagnoses PHYSICAL PT IS IN NETWORK IN [employer] Procedures PHYSICAL PT IS IN NETWORK IN [facility] [address] [place] [address] Referral ID Status Reason Start Date Expiration Date Visits Requested Visits Authorized [id number] Pending Review OON/Self Pay Override 06/28/2024 10/06/2025 1 1 Reason Comments Referral Information Cardiology Reason Comments Insurance Authorization PA for albuterol inhaler Reason Onset Date Comments Refill Request 08/23/2024 Reason Comments Returning Patient's Call Reason Comments Supervisor Powdered Sugar - Other [employer] - updated instructions Reason Onset Date Comments Refill Request 09/23/2024 Wellbutrin. Adva ir Reason Comments Appointment 6 Month Follow up Reason Onset Date Comments Refill Request 01/24/2025 Albuterol inhale r Care Teams (unrecognized sec tion and content) Emergency Medical Technician Relationship Specialty Start Date End Date Ila Canales MD [address] [place], [place] [id number] PCP - General Family Practice 08/27/14 Emergency Medical Technician Relationship Specialty Start Date End Date Ila Canales MD [address] [place] [address] PCP - General Family Practice 08/27/14 Emergency Medical Technician Relationship Specialty Start Date End Date Ila Canales MD [address] [place] [address] PCP - General Family Medicine 08/27/14 Emergency Medical Technician Relationship Specialty Start Date End Date Ila Canales MD [address] [place] [address] PCP - General Family Medicine 08/27/14 Emergency Medical Technician Relationship Specialty Start Date End Date Ila Canales MD [address] [place] [address] PCP - General Family Medicine 08/27/14 Emergency Medical Technician Relationship Specialty Start Date End Date Ila Canales MD [address] [place] [address] PCP - General Family Medicine 08/27/14 Emergency Medical Technician Relationship Specialty Start Date End Date Ila Canales MD [address] [place] [address] PCP - General Family Medicine 08/27/14 Emergency Medical Technician Relationship Specialty Start Date End Date Ila Canales MD [address] [place] [address] PCP - General Family Medicine 08/27/14 Emergency Medical Technician Relationship Specialty Start Date End Date Ila Canales MD [address] [place] [address] PCP - General Family Medicine 08/27/14 Emergency Medical Technician Relationship Specialty Start Date End Date Ila Canales MD [address] [place] [address] PCP - General Family Medicine 08/27/14 Emergency Medical Technician Relationship Specialty Start Date End Date Ila Canales MD [address] [place] [address] PCP - General Family Medicine 08/27/14 Emergency Medical Technician Relationship Specialty Start Date End Date Ila Canales MD [address] [facility], [place] [address] PCP - General Family Medicine 08/27/14 Team Status: Active Member Role Status Dates Dr. Rj Canales MD Family Provider Active Dr. Rj Canales MD Primary Care Provider Active Team Status: Inactive Member Role Status Dates Dr. Rj Canales MD Primary Care Provider Active Dr. Anju Bermudez MD Referring Provider, Emergency Provider Active Emergency Medical Technician Relationship Specialty Start Date End Date Ila Canales MD [address] [place] [address] PCP - General Family Medicine 08/27/14 Emergency Medical Technician Relationship Specialty Start Date End Date Ila Canales MD [address] [place] [address] PCP - General Family Medicine 08/27/14 Emergency Medical Technician Relationship Specialty Start Date End Date Ila Canales MD [address] [facility], [place] [address] PCP - General Family Medicine 08/27/14 Emergency Medical Technician Relationship Specialty Start Date End Date Ila Canales MD [address] [facility], [place] [address] PCP - General Family Medicine 08/27/14 Emergency Medical Technician Relationship Specialty Start Date End Date Ila Canales MD [address] [place] [address] PCP - General Family Medicine 08/27/14 Emergency Medical Technician Relationship Specialty Start Date End Date Ila Canales MD [address] [place] [address] PCP - General Family Medicine 08/27/14 Emergency Medical Technician Relationship Specialty Start Date End Date Ila Canales MD [address] [place] [address] PCP - General Family Medicine 08/27/14 Emergency Medical Technician Relationship Specialty Start Date End Date Ila Canales MD [address] [place] [address] PCP - General Family Medicine 08/27/14 Emergency Medical Technician Relationship Specialty Start Date End Date Ila Canales MD [address] [place] [address] PCP - General Family Medicine 08/27/14 Emergency Medical Technician Relationship Specialty Start Date End Date Ila Canales MD [address] [place] [address] PCP - General Family Medicine 08/27/14 Emergency Medical Technician Relationship Specialty Start Date End Date Ila Canales MD [address] [place] [address] PCP - General Family Medicine 08/27/14 Emergency Medical Technician Relationship Specialty Start Date End Date Ila Canales MD [address] [place] [address] PCP - General Family Medicine 08/27/14 Emergency Medical Technician Relationship Specialty Start Date End Date Ila Canales MD [address] [place] [address] PCP - General Family Medicine 08/27/14 Emergency Medical Technician Relationship Specialty Start Date End Date Ila Canales MD [address] [place] [address] PCP - General Family Medicine 08/27/14 Emergency Medical Technician Relationship Specialty Start Date End Date Benigno Laguerre DO [address] [place], [place] [id number] PCP - General Internal Medicine 07/02/24 Ginny Eaton, LALA.ASSISTED LIVING CARE MANAGER [address] [facility] [place], [place] [address] Supervisor Particleboard Internal Medicine 05/12/24 Trini Blackburn DO [address] [place] [address] PCP Resident 07/02/24 Emergency Medical Technician Relationship Specialty Start Date End Date Benigno Laguerre DO [address] [place] [address] PCP - General Internal Medicine 07/02/24 Ginny Eaton APRN.ASSISTED LIVING CARE MANAGER [address] [facility] [address] [place] [address] Supervisor Particleboard Internal Medicine 05/12/24 Trini Blackburn DO [address] [place], [place] [id number] PCP Resident 07/02/24 Emergency Medical Technician Relationship Specialty Start Date End Date Carlotta Benigno [address] [place], [place] [id number] PCP - General Internal Medicine 07/02/24 Ginny Eaton, LALA.ASSISTED LIVING CARE MANAGER [address] [place] [address] Supervisor Particleboard Internal Medicine 05/12/24 Trini Blackburn DO [address] [place], [place] [id number] PCP Resident 07/02/24 Emergency Medical Technician Relationship Specialty Start Date End Date Carlotta BenignoDO [address] [place], [place] [id number] PCP - General Internal Medicine 07/02/24 Ginny Eaton, PIPE FITTINGS MOLDER.ASSISTED LIVING CARE MANAGER [address] [facility] [place], [place] [address] Supervisor Particleboard Internal Medicine 05/12/24 Trini Blackburn DO [address] [place] [address] PCP Resident 07/02/24 Emergency Medical Technician Relationship Specialty Start Date End Date Carlotta BenignoDO [address] [place], [place] [id number] [phone] PCP - General Internal Medicine 07/02/24 Ginny Eaton APRN.ASSISTED LIVING CARE MANAGER [address] [place] [address] Supervisor Particleboard Internal Medicine 05/12/24 Trini Blackburn DO [address] [place], [place] [id number] PCP Resident 07/02/24 Emergency Medical Technician Relationship Specialty Start Date End Date Benigno LaguerreDO [address] [facility] [address] [place], [place] [id number] PCP - General Internal Medicine 07/02/24 Ginny Eaton APRN.CNP [address] [place] [address] Supervisor Particleboard Internal Medicine 05/12/24 Trini Blackburn DO [address] [place], [place] [id number] PCP Resident 07/02/24 Team Status: Active Member [...] BE BASED ON THE PRIMARY CLINICAL RECORDS. [employer] provides no warranty or guarantee of the accuracy or completeness of information in this document.
--- OUTSIDE RECORDS SUMMARY | 2025-03-31 21:08 | XMS RPT_ITS | CCD ---
Author Organization [facility] ion [facility] Care Team Providers Care Structural Mill Supervisor Name Role Phone Ila Canales MD Primary Care Provider ILA CANALES Referring Unavailable ILA CANALES Primary Care Unavailable MD GAYLE GREGORY Attending Unavailable Ila Canales MD Primary Care Provider Angelito POCKET GRINDER OPERATOR.MAINFRAME SOFTWARE DEVELOPER, Ginny Unavailable [phone] Trini Blackburn DO Unavailable Benigno Laguerre DO Primary Care Provider TRINI BLACKBURN Attending Unavailable SELF Referring Unavailable BENIGNO LAGUERRE Primary Care Unavailable Dr. Derek Sanchez MD Emergency Department Physici an Javon SUH, Dr. De La Rosa Primary Care Physician ILA CANALES Primary Care Unavailable INDY QUIGLEY Attending Unavailable Derek Sanchez Attending Unavailable Rj Canales Primary Care Unavailable Edilma iRtter Referring Unavailable Rj Canales Primary Care Unavailable Edilma Ritter Attending Unavailable [facility] Doctor, Out of Primary Care Unavailable Nigel Quezada Attending Unavailable [facility] Doctor, Out of Referring Unavailable Edilma Ritter Referring Unavailable Rj Canales Primary Care Unavailable Edilma Ritter Consulting Unavailable Edilma Ritter Attending Unavailable Rj Canales Primary Care Unavailable Rj Canales Referring Unavailable Edilma Ritter Attending Unavailable [facility] Doctor, Out of Primary Care Unavailable [...] Amoxicillin / Clavulanate Drug Allergy 2 Diarrhea [facility] (20 sources) Amoxicillin / Clavulanate; Translations: [AMOXICILLIN-POT CLAVULANATE] Drug Allergy 2 Diarrhea [facility] (11 sources) environmental [Other] Propensity to adverse reactions 8 [facility] (20 sources) Seasonal allergy; Translations: [SEASONAL ALLERGIES] Allergy to substance 8 Intolerance [facility] (2 sources) Amoxicillin Drug Allergy 3 Abd cramps/diarrhe a [facility] (2 sources) Clavulanate Drug Allergy 3 Abd cramps/diarrhe a [facility] (1 source) Amoxicillin Drug Allergy 5 [facility] Repository (1 source) Clavulanate Drug Allergy 5 [facility] Repository Medications Current Medications Medication Drug Class(es) Dates Sig (Normalized) Sig (Original) [id number] 200 actuat albuterol 0.09 mg/actuat metered dose [...] on above: Take 1 capsule by mo [facility] twice daily for 7 days. diazePAM 5 [...] Comment on above: [facility]. fluconazole 200 mg [...] 5 days. Take 1 capsule by mo [facility] two times a day for 5 days. [...] on above: TAKE 1 CAPSULE BY MO [facility] EVERY DAY. TAKE AT LEAST [...] Comment on above: Take 1 tablet by [facility] once daily. metFORMIN hydrochloride 500 mg [...] on above: Take 2 tablets by mo [facility] once daily for 5 days. Take 5 tablets by mo [facility] once daily for 1 day, THEN 4 [...] Comment on above: Take 1 tablet by [facility] as directed. at onset of headache. [...] Test Name Value Interpretation Reference Range Facility [facility] A[facility] ([id number]) 1980 F Date Time Provider Department 03/27/25 ILA CANALES During your visit today, we recorded the following information about you: Karlene Lanza LPN 03/27/2025 3:50 PM Signed Received ed from [facility]. Placed in provider's inbox for review. Route to [place] scanning Allergies As of Date: 03/27/2025 Noted Allergy Reaction AUGMENTIN (AMOXICILLIN-POT CLAVUL*07/01/2021 6 - Diarrhea SEASONAL ALLERGIES 11/13/2007 5 - Intolerance Date Reviewed: 03/12/2025 Reviewed by: Pao Ponce LPN - Fully Assessed Reason for Visit: Received Outside Medical Records [[id number]] Cmt: [facility] Prescriptions as of 03/27/2025 - albuterol HFA [...] Status:Closed by KARLENE LANZA on 03/27/25 Normal [facility] Discharge Instructionon 03-06 Discharge Instruction [facility] Medical Records Department [address] [place] [address] Instructions for Home/Discharge Instructions 03/27/25 0806 MR#: [id number] Acct: [id number] Name: ABDOUL FAITH Rep #: [id number] : 1980 44 From: Edilma Ritter MD PCP: Dr. Rj Canales MD Status:REG [facility] Discharge Instructions Diet Discharge Diet: No restrictions [...] Care Provider: Rj Canales Instructions Print Language: Mauritanian Discharge Orders/Prescriptions Prescriptions: New oxycodone-acetaminoph en 5-325 [...] MD CC: Dr. Rj Canales MD Signed [facility] MR/POSTOP.ANE 03-27-2025 MR/POSTOP.[facility] Medical Records Department [address] [place] [address] Anesthesia Postop Eval I 03/27/25910 MR#: [id number] Acct: [id number] Name: ABDOUL FAITH MONROE Rep #: [id number] : 1980 44 From: Torsten Greer CRNA PCP: Dr. Rj Canales MD Status:REG SDC Y Race: C Location: [place] [address] Anesthesia: Postop Eval I Current Vital Signs [...] Greer CRNA Cosigner Signature: Date CC: Signed [facility] MR/[id number] 03-27-2025 MR/POSTOPAN2 [facility] Medical Records Department [address] [place] [address] Anesthesia Postop Eval II 03/27/25 1429 MR#: [id number] Acct: [id number] Name: ABDOUL FAITH Rep #: [id number] : 1980 44 From: Zhao Jimenez MD PCP: Dr. Rj Canales MD Status:DEP [facility] Y Race: C Location: [facility] Anesthesia Postop Eval I Sum Postop Eval Completion status Anesthesia document: Postop Eval 1 completed: Yes Anesthesia Postop Eval I Summary Anesthesia Postop Eval I Summary: Anesthesia Postop Eval I: Assessment Summary Airway patent Yes 03/27/25 09:12 SWIFT TENDER.RWOO Spontaneous unlabored Yes 03/27/25 09:12 SWIFT TENDER.RWOO respirations Mental status Asleep 03/27/25 09:12 SWIFT TENDER.RWOO nausea No 03/27/25 09:12 SWIFT TENDER.RWOO Vomiting No 03/27/25 09:12 SWIFT TENDER.RWOO Anesthesia Postop Eval I: Fluid Summary Crystalloid volume administer 500 03/27/25 09:12 SWIFT TENDER.RWOO (ml) Colloids volume administered ( ml) Blood Product volume administered (ml) Total IV fluid infused 500 03/27/25 09:12 SWIFT TENDER.RWOO Anesthesia Postop Eval I: Summary Notes Anesthesia Complication No 03/27/25 09:12 SWIFT TENDER.RWOO Anesthesia Complication Comment: Post-operative progress note Anesthesia: Postop Eval II Evaluation Mental status: Awake and Calm Pain Level: 1 nausea: No Vomiting: No Complications Anesthesia Complication: No 03/27/25 142 Date Zhao Jimenez MD Cosigner Signature: Date CC: Signed Normal [facility] Operative Reporton Operative Report [facility] Medical Records Department [address] [place] [address] Operative Report 03/27/25 0914 MR#: [id number] Acct: [id number] Name: ABDOUL FAITH Rep #: [id number] : 1980 44 From: Edilma Ritter MD PCP: Dr. Rj Canales MD Status:[facility] Location: [place] [address] Operative Report (Standard) Operative Information Date of Procedure: 03/27/25 Pre-Operative Diagnosis: Left ureteral and right renal calculi Post-Operative Diagnosis: Same Surgery/Procedure Performed: Cystoscopy, left retrograde pyelogram, left ureteroscopy, thulium laser lithotripsy, stone basket extraction, left ureteral stent insertion, right ureteroscopy certified pediatric nurse practitioner: No Type of Anesthesia: General RN Documented [...] S that apply: Drains Drain details: 4.5 Comoran by 26 cm JJ stent Estimated Blood [...] was utilized for placement of a 4.5 Com[place]an by 26 cm JJ stent. There was good positioning seen on fluoroscopy and in the urinary bladder. There was an area consistent with a possible second ureteral orifice 1 cm medial to the orifice where the stone was identified. A retrograde pyelogram using an 8 Comoran cone-tip catheter was done into this area [...] prophylaxis not ordered: Treatment Not Indicated 03/27/25 5628 Cosigner Signature (if applicable): CC: Dr. Edilma Ritter MD; Dr. Rj Canales MD Signed Normal [facility] ,Urineon 03-27-2025 Beta HCG ( test) Ql (U) Negative [facility] Comment on above: Result Comment: Very dilute urine specimens, as indicated by a low specific gravity, may not contain help desk representative levels of hCG. If is still suspected, a first morning urine specimen should be collected 48 hours later and tested. Performed By: #### L 700.6800, L500.2500, L100.0100 #### [facility] Laboratory [address] [place], [address] 12 Lead EKGon 03-21-2025 12 Lead EKG [facility] Cardiovascular Services [address] [place] [address] 12 Lead EKG 03/21/25 0725 MR#: [id number] Acct: [id number] Name: ABDOUL FAITH Rep #: [id number] : 1980 44 From: Nigel Quezada MD Attending Dr: Dr. Edilma Ritter MD Status: PRE [facility] Ordering Dr: Zhao Jimenez MD Date: 03/21/25 Location: [facility] Sex: F C Admitted: Test Reason : PREOP Blood Pressure : */* mmHG Vent. Rate : 70 BPM Atrial Rate : 70 BPM P-R Int : 146 ms QRS Dur : 82 ms QT Int : 382 ms P-R-T Axes : 48 46 37 degrees QTcB Int : 412 ms Normal sinus rhythm Normal ECG Confirmed by CONCETTA SUH, NIGEL ([id number]), video tape editor LAURENCE DUKES ([id number]) on 03/24/2025 6:58:00 AM Referred By: Edilma Ritter Confirmed By: NIGEL QUEZADA MD 03/24/25 0658 Date Nigel Quezada MD CC: Dr. Zhao Jimenez MD; Dr. Edilma Ritter MD; Dr. Rj Canales MD Signed [facility] MR/PAT.Conor 03-21-2025 MR/PAT.[facility] Medical Records Department [address] [place] [address] PAT - Anesthesia 03/21/25 1552 MR#: [id number] Acct: [id number] Name: ABDOUL FAITH Rep #: [id number] : 1980 44 From: Miguel Sahu MD PCP: Dr. 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 Female Yes 03/20/25 15:24 HX of Motion [...] 03/18/25 08:30 Respiratory Assessment Respiratory Assessment - wool batting worker: Respiratory Tract Infection Hx - wool batting worker Hx Respiratory Tract Infection No 03/20/25 15:24 STOP Sleep Apnea STOP Sleep Apnea - wool batting worker: STOP Sleep Apnea - wool batting worker Hx Hypertension No 03/20/25 15:24 Hx Sleep [...] Tobacco Use History Tobacco Use History - wool batting worker: Tobacco Use History - wool batting worker Tobacco Use Smoking Status Current every day smoker 03/20/25 15:24 Hx Tobacco Use Yes 03/20/25 15:24 Years Smoking Packs Smoked per Day Smoking Cessation Date was within the last 15 years Hx Smoking Cessation Date Hx Smoking Cessation Counseling Hematologic Medial History Hematologic Hx - 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 [facility] 03-20-2025 [place] Telephone (FPWADS) ABDOUL FAITH ([id number]) 1980 F Date Time Provider Department 03/20/25 ILA CANALES During your visit today, we recorded the following information about you: Karlene Lanza LPN 03/20/2025 9:56 AM Signed Received visit summary from [facility]. Placed in provider's inbox for review. Route to [place] scanning Allergies As of Date: 03/20/2025 Noted Allergy Reaction AUGMENTIN (AMOXICILLIN-POT CLAVUL*07/01/2021 6 - Diarrhea SEASONAL ALLERGIES 11/13/2007 5 - Intolerance Date Reviewed: 03/12/2025 Reviewed by: Pao Ponce LPN - Fully Assessed Reason for Visit: Received Outside Medical Records [[id number]] Cmt: [facility] Prescriptions as of 03/20/2025 - [...] Encounter Status:Closed by KARLENE LANZA on 03/20/25 [facility] MR/Malvin 03-18-2025 MR/KRYSTIAN [facility] [address] [place] [address], [address] [place] [address] OFFICE VISIT Date of Service: 03/18/25 MR#: [id number] Acct: [id number] Name: ABDOUL FAITH MONROE Rep #: [id number] : 1980 Provider: Dr. Edilma Andino i, MD Age/Sex: 44/F Location: [facility] Status: Signed Intake Vital Signs 03/13/25 09:25 03/18/25 08:30 Height 5 ft 5 in 5 ft 5 in Weight: 174 lb BMI 28.9 BP 114/89 H Pulse 99 Intake Visit Reasons: ER F/U Stones Chief Complaint: ER follow up for 6mm kidney stone Mold Construction Supervisor Required: No Accompanied by: self Is patient in pain?: Yes (aching kidney stone pain ) Pain scale (1-10): 7 Allergies amoxicillin (From Augmentin) Adverse Reaction (Mild, Verified 03/13/25 09:24) Abd cramps/diarrhea clavulanic acid (From Augmentin) Adverse Reaction (Mild, Verified 03/13/25 09:24) Abd cramps/diarrhea Medications ???Medication ???Instructions ???Recorded ???Confirmed ???Type albuterol sulfate 90 mcg/actuation 1 - 2 puff inhalation Q6H PRN PA N 06/17/16 03/18/25 History aerosol inhaler (Ventolin [...] Suggs on 03/18/25 08:34 Off Ur Spec Gobles 1.015 Last Edit by Jeannie Suggs on [...] Edit by (more content not included)... Normal [facility] ([id number]) 1980 F Date Time Provider Department 03/17/25 ILA CANALES FPWADS During your visit today, we recorded the following information about you: Michelle Brown LPN 03/17/2025 3:35 PM Signed Received 03/15/2025 from [facility]. Placed in provider's inbox for review. Route to [place] for scanning Allergies As of Date: 03/17/2025 Noted Allergy Reaction AUGMENTIN (AMOXICILLIN-POT CLAVUL*07/01/2021 6 - Diarrhea SEASONAL ALLERGIES 11/13/2007 5 - Intolerance Date Reviewed: 03/12/2025 Reviewed by: Pao Ponce LPN - Fully Assessed Reason for Visit: Received Outside Medical Records [[id number]] Cmt: [facility] ER visit summary 03/13/2025 abdominal pain Prescriptions [...] Status:Closed by MICHELLE BROWN on 03/17/25 Normal [facility] Abdomen/Pelvis W IV Cont ONL Yon 03-13-2025 Abdomen/Pelvis W IV Cont ONLY [facility] Imaging Services [address] [place] [address] Abdomen/Pelvis W IV Cont ONLY MR#: [id number] Acct: [id number] Name: ABDOUL FAITH Rep #: [id number] : 1980 F 44 From: Panfilo Su MD PCP: Dr. Rj Canales MD Status: REG ER Study: Abdomen/Pelvis W IV Cont ONLY Date of Exam: Exam# [id number] Ordering Dr: Derek Sanchez MD PROCEDURE: ABDOMEN/PELVIS [...] right kidney. Normal appendix Cholelithiasis Reading Location: [facility] CC: Dr. Derek Sanchez MD; Dr. Rj Canales MD Induction Machine Operator: Signed Normal [facility] Absolute lymphocyte countOrd ered By: Derek Sanchez on 03-13-2025 Lymphocytes Auto (Unsp spec) [#/Vol] 1.27 10*3/uL 0.83-4.51 [facility] Absolute neutrophil countOrd ered By: Derek Sanchez on 03-13-2025 Neutrophils (Bld) [#/Vol] 5.2 10*3/uL 2.0-7.7 [facility] Anion gap in Serum or Plasma Ordered By: Derek Sanchez on 03-13-2025 Anion gap [Moles/Vol] 9 mmol/L 5-15 [facility] Automated blood erythrocyte countOrdered By: Derek Sanchez on 03-13-2025 RBC (Bld) [#/Vol] 4.92 10*6/uL Normal 4.2-5.4 [facility] Comment on above: Performed By: #### L 700.7610, L500.2500, L100.0100 #### [facility] Laboratory [address] [place], [place], [id number] Automated blood hematocrit ( percentage)Ordered By: Derek Sanchez on 03-13-2025 Hematocrit (Bld) [Volume fraction] 42.2 % Normal 37-47 [facility] Comment on above: Performed By: #### L 700.6800, L500.2500, L100.0100 #### [facility] Laboratory [address] [place], [address] Automated lymphocyte count a s percentage of total leukocytesOrdered By: Derek Sanchez on 03-13-2025 Lymphocytes/100 WBC Auto (Unsp spec) 17.5 % Low 19-41 [facility] BUN/creatinine ratioOrdered By: Derek Sanchez on 03-13-2025 Urea nitrogen/Creatinine [Mass ratio] 11.1 mg/mg - [facility] Basic Metabolic Profile (BMP )on 03-13-2025 BUN/CRE 11.1 RATIO Normal - [facility] Comment on above: Performed By: #### L 700.6800, L500.2500, L100.0100 #### [facility] [address] [place], [address] ECRCL 89.15 ml/min Normal 50-250 [facility] Comment on above: Performed By: #### L 700.6800, L500.2500, L100.0100 #### [facility] [address] [place], [address] GAP 9 Normal 5-15 [facility] Comment on above: Performed By: #### L 700.6800, L500.2500, L100.0100 #### [facility] [address] [place], [address] Potassium [Moles/Vol] 3.9 mmol/L Normal 3.3-5.1 [facility] Comment on above: Performed By: #### L 700.6800, L500.2500, L100.0100 #### [facility] [address] [place], [address] Basophil percentageOrdered B y: Derek Sanchez on 03-13-2025 Basophils/100 WBC (Bld) 0.4 % Normal 0-1 [facility] Comment on above: Performed By: #### L 700.6800, L500.2500, L100.0100 #### [facility] [address] [place], [address] Bilirubin Test strip Ql (U)O rdered By: Derek Sanchez on 03-13-2025 Bilirubin Ql (U) 1 mg/dL High Negative [facility] Comment on above: COLOR OF URINE MAY A FFECT DIPSTICK RESULTS. CBC W/Diff, Automatedon 10-0 Absolute Lymph 1.27 X10 3/uL Normal 0.83-4.51 [facility] Comment on above: Performed By: #### L 700.6800, L500.2500, L100.0100 #### [facility] [address] [facility] [place], [address] Absolute Neut 5.2 X10 3/uL Normal 2.0-7.7 [facility] Comment on above: Performed By: #### L 700.6800, L500.2500, L100.0100 #### [facility] [address] [facility] [place], [address] IG% 0.400 Normal 0.0-0.9 [facility] Comment on above: Result Comment: IG% - Immature Granulocytes (promyelocytes, myelocytes and metamyelocytes) > 1% indicates that a LEFT SHIFT is Present. Performed By: #### L 700.6800, L500.2500, L100.0100 #### [facility] [address] [facility] [place], [address] Lymphocytes/100 WBC (Bld) 17.5 % Low 19-41 [facility] Comment on above: Performed By: #### L 700.6800, L500.2500, L100.0100 #### [facility] [address] [facility] [place], [address] Nucleated RBC (Bld) [#/Vol] 0 10*3/uL Normal 0-5 [facility] Comment on above: Performed By: #### L 700.6800, L500.2500, L100.0100 #### [facility] [address] [place], [address] RDW SD 37.8 fl Normal 35.1-43.9 [facility] Comment on above: Performed By: #### L 700.6800, L500.2500, L100.0100 #### [facility] [address] [place], [address] Carbon dioxide, total [Moles /volume] in Central venous bloodOrdered By: Derek Sanchez on 03-13-2025 CO2 [Moles/Vol] 25.2 mmol/L Normal 21.0-32.0 [facility] Comment on above: Performed By: #### L 700.6800, L500.2500, L100.0100 #### [facility] [address] [place], [address] Chloride assayOrdered By: Remigio Sanchez on 03-13-2025 Chloride [Moles/Vol] 104 mmol/L Normal 98-108 [facility] Comment on above: Performed By: #### L 700.6800, L500.2500, L100.0100 #### [facility] [address] [place], [address] Emergency Department Summary on 03-13-2025 Emergency Department Summary [facility] Medical Records Department [address] [place] [address] Emergency Department Summary 03/13/25 MR#: [id number] Acct: [id number] Name: ABDOUL FAITH Rep #: [id number] : 1980 44 From: Derek Sanchez MD [...] 1 - 2 puff inhalation Q6H PRN PA N 06/17/16 Unknown History aerosol inhaler (Ventolin [...] Allergic/Immunologic E (more content not included)... Normal [facility] Eosinophil percentageOrdered By: Derek Sanchez on 03-13-2025 Eosinophils/100 WBC (Bld) 4.0 % Normal 0-5 [facility] Comment on above: Performed By: #### L 700.9640, L500.2500, L100.0100 #### [facility] [address] [place], [address] Erythrocyte distribution wid th ratioOrdered By: Derek Sanchez on 03-13-2025 Erythrocyte distribution width (RBC) [Ratio] 12.0 % Normal 11.6-14.6 [facility] Comment on above: Performed By: #### L 700.6800, L500.2500, L100.0100 #### [facility] [address] [place], [address] Erythrocyte distribution wid th standard deviationOrdered By: Derek Sanchez on 03-13-2025 Erythrocyte distribution width (RBC) [Ratio] 37.8 fl 35.1-43.9 [facility] Glomerular filtration rate ( GFR) estimation/1.73 sq m using serum, plasma, or whole bOrdered By: Derek Sanchez on 03-13-2025 GFR/1.73 sq M.predicted among non-blacks MDRD (S/P/Bld) [Vol rate/Area] 87 mL/min/{1.73_m2} Normal >60 [facility] Comment on above: mL/min/1.73m2 CKD-EP I Creatinine Equation (2020) Result Comment: mL/m in/1.73m2 CKD-EPI Creatinine Equation (2020) Performed By: #### L 700.6800, L500.2500, L100.0100 #### [facility] [address] [place], [address] Hemoglobin measurementOrdere d By: Derek Sanchez on 03-13-2025 Hemoglobin (Bld) [Mass/Vol] 14.4 g/dL Normal 12.0-15.0 [facility] Comment on above: Performed By: #### L 700.6800, L500.2500, L100.0100 #### [facility] [address] [place], [address] Immature granulocytes/100 WB C Auto (Bld)Ordered By: Derek Sanchez on 03-13-2025 Immature granulocytes/100 WBC (Bld) 0.400 % 0.0-0.9 [facility] Comment on above: IG% - Immature Granu locytes (promyelocytes, myelocytes and metamyelocytes) > 1% indicates that a LEFT SHIFT is Present. Ketones Test strip Ql (U)Ord ered By: Derek Sanchez on 03-13-2025 Ketones Ql (U) Negative Negative [facility] MCV (mean corpuscular volume ) determinationOrdered By: Derek Sanchez on 03-13-2025 MCV (RBC) [Entitic vol] 85.8 fL Normal 81-99 [facility] Comment on above: Performed By: #### L 700.6800, L500.2500, L100.0100 #### [facility] [address] [place], [address] Mean corpuscular hemoglobin (MCH) determinationOrdered By: Derek Sanchez on 03-13-2025 MCH (RBC) [Entitic mass] 29.3 pg Normal 27.0-32.0 [facility] Comment on above: Performed By: #### L 700.6800, L500.2500, L100.0100 #### [facility] [address] [place], [address] Mean corpuscular hemoglobin concentration (MCHC) determinationOrdered By: Derek Sanchez on 03-13-2025 MCHC (RBC) [Mass/Vol] 34.1 g/dL Normal 32-36 [facility] Comment on above: Performed By: #### L 700.6800, L500.2500, L100.0100 #### [facility] [address] [place], [address] Mean platelet volume determi nationOrdered By: Derek Sanchez on 03-13-2025 Platelet mean volume (Bld) [Entitic vol] 9.2 fL Normal 6.2-12.0 [facility] Comment on above: Performed By: #### L 700.6800, L500.2500, L100.0100 #### [facility] [facility] [address] [place], [address] Microscopic analysis of urin e for red blood cells (RBC)Ordered By: Derek Sanchez on 03-13-2025 Microscopic analysis of urine for red blood cells (RBC) 0 SEEN /hpf 0-5 [facility] Monocyte percentageOrdered B y: Derek Sanchez on 03-13-2025 Monocytes/100 WBC (Bld) 6.3 % Normal 0-10 [facility] Comment on above: Performed By: #### L 700.6800, L500.2500, L100.0100 #### [facility] [address] [place], [place], [id number] Mucus LM Ql (Urine sed)Order ed By: Derek Sanchez on 03-13-2025 Mucus Ql (Urine sed) 0 SEEN /hpf [facility] Neutrophil percentageOrdered By: Derek Sanchez on 03-13-2025 Neutrophils/100 WBC (Bld) 71.4 % High 47-70 [facility] Comment on above: Performed By: #### L 700.6800, L500.2500, L100.0100 #### [facility] [address] [facility]. [place], [place], [id number] Nitrite Test strip Ql (U)Ord ered By: Derek Sanchez on 03-13-2025 Nitrite Ql (U) Positive High Negative [facility] Nucleated red blood cell per centageOrdered By: Derek Sanchez on 03-13-2025 Nucleated RBC/100 WBC (Bld) [Ratio] 0 % 0-5 [facility] Platelet countOrdered By: Remigio Sanchez on 03-13-2025 Platelets (Bld) [#/Vol] 329 10*3/uL Normal 150-450 [facility] Comment on above: Performed By: #### L 700.6800, L500.2500, L100.0100 #### [facility] [address] [place], [place], [phone] Potassium measurement (mass/ volume)Ordered By: Derek Sanchez on 03-13-2025 Potassium (Unsp spec) [Mass/Vol] 3.9 mmol/L 3.3-5.1 [facility] ,Serum,hCG Quali.on 03-13-2025 HCG, SERUM QUAL Negative Normal [facility] Comment on above: Performed By: #### L 700.6800, L500.2500, L100.0100 #### [facility] [address] [facility] [place], [address] Protein Test strip Ql (U)Ord ered By: Derek Sanchez on 03-13-2025 Protein Ql (U) 30 mg/dl High Negative [facility] Serum beta-hCG test, qualita tiveOrdered By: Derek Sanchez on 03-13-2025 Beta HCG ( test) Ql Negative [facility] Serum creatinine measurement (mass/volume)Ordered By: Derek Sanchez on 03-13-2025 Creatinine [Mass/Vol] 0.85 mg/dL Normal 0.70-1.20 [facility] Comment on above: Performed By: #### L 700.6800, L500.2500, L100.0100 #### [facility] [address] [facility] [place], [address] Serum glucose measurement (m ass/volume)Ordered By: Derek Sanchez on 03-13-2025 Glucose [Mass/Vol] 94 mg/dL Normal 70-99 [facility] Comment on above: Performed By: #### L 700.6800, L500.2500, L100.0100 #### [facility] [address] [place], [address] Serum or plasma calcium unruly urement (mass/volume)Ordered By: Derek Sanchez on 03-13-2025 Calcium [Mass/Vol] 9.0 mg/dL Normal 7.6-11.0 [facility] Comment on above: Performed By: #### L 700.6800, L500.2500, L100.0100 #### [facility] [address] [facility] [place], [address] Serum or plasma urea nitroge n measurement (mass/volume)Ordered By: Derek Sanchez on 03-13-2025 Urea nitrogen [Mass/Vol] 9 mg/dL Normal 4-19 [facility] Comment on above: Performed By: #### L 700.6800,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 height 165.1 cm Nancy Viera APRN.MAINFRAME SOFTWARE DEVELOPER Work Phone: [facility] 12-21-2023 07:43-0400 Body mass index (BMI) [Ratio] 32.28 kg/m2 Nancy Viera APRN.MAINFRAME SOFTWARE DEVELOPER Work Phone: [facility] 12-21-2023 07:43-0400 Body weight 88 kg Nancy Viera APRN.MAINFRAME SOFTWARE DEVELOPER Work Phone: [facility] 12-21-2023 07:43-0400 Diastolic blood pressure 85 mm[Hg] Nancy Viera APRN.MAINFRAME SOFTWARE DEVELOPER Work Phone: [facility] 12-21-2023 07:43-0400 Heart rate 81 /min Nancy Viera APRN.MAINFRAME SOFTWARE DEVELOPER Work Phone: [facility] 12-21-2023 07:43-0400 SaO2% (BldA) [Mass fraction] 98 % Nancy Viera APRN.MAINFRAME SOFTWARE DEVELOPER Work Phone: [facility] 12-21-2023 07:43-0400 Systolic blood pressure 120 mm[Hg] Nancy Viera APRN.MAINFRAME SOFTWARE DEVELOPER Work Phone: [facility] 12-14-2023 15:32-0400 Body height 166.4 cm Juan Manuel Gayle DO Work Phone: [facility] 12-14-2023 15:32-0400 Body mass index (BMI) [Ratio] 31.79 kg/m2 Juan Manuel Gayle DO Work Phone: [facility] 12-14-2023 15:32-0400 Body weight 88 kg Juan Manuel Gayle DO Work Phone: [facility] 12-14-2023 15:32-0400 Diastolic blood pressure 64 mm[Hg] Juan Manuel Gayle DO Work Phone: [facility] 12-14-2023 15:32-0400 Systolic blood pressure 96 mm[Hg] Juan Manuel Gayle DO Work Phone: [facility] 09-15-2023 11:26-0400 Body weight 88.45 kg Nancy Viera APRN.MAINFRAME SOFTWARE DEVELOPER Work Phone: [facility] 09-15-2023 11:26-0400 Diastolic blood pressure 72 mm[Hg] Nancy Viera APRN.MAINFRAME SOFTWARE DEVELOPER Work Phone: [facility] 09-15-2023 11:26-0400 Systolic blood pressure 114 mm[Hg] Nancy Viera APRN.MAINFRAME SOFTWARE DEVELOPER Work Phone: [facility] 08-22-2023 09:02-0400 Diastolic blood pressure 70 mm[Hg] Ila Canales MD Work Phone: [facility] 08-22-2023 09:02-0400 Systolic blood pressure 110 mm[Hg] Ila Canales MD Work Phone: [facility] 08-22-2023 08:38-0400 Body height 166.4 cm Ila Canales MD Work Phone: [facility] 08-22-2023 08:38-0400 Body weight 88 kg Ila Canales MD Work Phone: [facility] 08-22-2023 08:38-0400 Heart rate 88 /min Ila Canales MD Work Phone: [facility] 08-22-2023 08:38-0400 SaO2% (BldA) [Mass fraction] 100 % Ila Canales MD Work Phone: [facility] 05-30-2023 10:04-0500 Diastolic blood pressure 97 mm[Hg] [facility] 05-30-2023 10:04-0500 Heart rate 87 /min [facility] 05-30-2023 10:04-0500 Respiratory rate 16 /min [facility] 05-30-2023 10:04-0500 SaO2% (BldA) [Mass fraction] 98 % [facility] 05-30-2023 10:04-0500 Systolic blood pressure 119 mm[Hg] [facility] 05-30-2023 08:31-0500 Body height 165.1 cm [facility] 05-30-2023 08:31-0500 Body mass index (BMI) [Ratio] 31.4 kg/m2 [facility] 05-30-2023 08:31-0500 Body temperature 97.2 [degF] [facility] 05-30-2023 08:31-0500 Body weight 85.72 kg [facility] 05-20-2023 12:06-0500 Body temperature 97.7 [degF] César Fernandez MD Work Phone: [facility] 05-20-2023 12:06-0500 Body weight 84.91 kg César Fernandez MD Work Phone: [facility] 05-20-2023 12:06-0500 Diastolic blood pressure 100 mm[Hg] César Fernandez MD Work Phone: [facility] 05-20-2023 12:06-0500 Heart rate 92 /min César Fernandez MD Work Phone: [facility] 05-20-2023 12:06-0500 Respiratory rate 20 /min César Fernandez MD Work Phone: [facility] 05-20-2023 12:06-0500 SaO2% (BldA) [Mass fraction] 100 % César Fernandez MD Work Phone: [facility] 05-20-2023 12:06-0500 Systolic blood pressure 134 mm[Hg] César Fernandez MD Work Phone: [facility] 04-02-2023 08:44-0400 Body temperature 98.8 [degF] Aminah Athy PA-C Work Phone: [facility] 04-02-2023 08:44-0400 Body weight 82.46 kg Aminah Athy PA-C Work Phone: [facility] 04-02-2023 08:44-0400 Diastolic blood pressure 80 mm[Hg] Aminah Athy PA-C Work Phone: [facility] 04-02-2023 08:44-0400 Heart rate 100 /min Aminah Athy PA-C Work Phone: [facility] 04-02-2023 08:44-0400 Respiratory rate 20 /min Aminah Athy PA-C Work Phone: [facility] 04-02-2023 08:44-0400 SaO2% (BldA) [Mass fraction] 99 % Aminah Athy PA-C Work Phone: [facility] 04-02-2023 08:44-0400 Systolic blood pressure 118 mm[Hg] Aminah Athy PA-C Work Phone: [facility] 07-25-2022 14:57-0500 Body height 167.6 cm Ila Canales MD Work Phone: [facility] 07-25-2022 14:57-0500 Body weight 90.27 kg Ila Canales MD Work Phone: [facility] 07-25-2022 14:57-0500 Diastolic blood pressure 73 mm[Hg] Ila Canales MD Work Phone: [facility] 07-25-2022 14:57-0500 Heart rate 82 /min Ila Canales MD Work Phone: [facility] 07-25-2022 14:57-0500 SaO2% (BldA) [Mass fraction] 97 % Ila Canales MD Work Phone: [facility] 07-25-2022 14:57-0500 Systolic blood pressure 119 mm[Hg] Ila Canales MD Work Phone: [facility] Encounters Encounter Date Encounter Type Care Provider Facility Start: 03-28-2025 Encounter for other preprocedural examination [facility] Start: 03-27-2025 ambulatory [facility] Facility: [facility] Start: 03-27-2025 End: 03-27-2025 ambulatory [facility] Facility:[facility] Start: 03-18-2025 End: 03-18-2025 ambulatory Rj Canales Facility:[facility] Start: 03-13-2025 End: 03-13-2025 Emergency department patient visit Dr. Derek Sanchez MD Work Phone: -Emergency Department Work Phone: Start: 03-12-2025 End: 03-12-2025 ambulatory ILA CANALES Facility:[facility] Start: 01-24-2025 End: 01-26-2025 Refill Trini Blackburn DO Work Phone: [facility] Internal [facility] ([facility]) Comment on above: Refill Request (Albu terol inhaler) Start: 11-22-2024 End: 11-22-2024 Telephone encounter Trini Alexey DO Work Phone: [facility] ([facility]) Comment on above: Appointment (6 Month Follow up) Start: 10-07-2024 End: 10-07-2024 Emergency department patient visit Out of Town Doctor Facility:[facility] Start: 09-23-2024 End: 09-23-2024 Refill Trini Alexey DO Work Phone: [facility] ([facility]) Comment on above: Refill Request ([place] hollis. Manish) Start: 08-28-2024 End: 08-29-2024 ambulatory Trini Alexey DO Work Phone: [facility] ([facility]) Start: 08-28-2024 End: 08-29-2024 Patient encounter procedure Trini Blackburn DO Work Phone: [facility] ([facility]) Comment on above: Inhaler Start: 08-26-2024 End: 08-27-2024 Telephone encounter Trini Blackburn DO Work Phone: [facility] ([facility]) Comment on above: Administrative Support Technician - O ivory ([facility] - updated instructions) Start: 08-23-2024 End: 08-23-2024 Refill Benigno Laguerre DO Work Phone: [facility] ([facility]) Comment on above: Refill Request Returning Patient's Call Start: 08-21-2024 End: 08-21-2024 ambulatory Out [facility] Town Doctor Facility:[facility] Start: 08-21-2024 End: 08-21-2024 ambulatory Out of Town Doctor Facility:[facility] Start: 08-21-2024 ambulatory Health Risk Assessment Facility:[facility] Start: 07-08-2024 End: 07-08-2024 Telephone encounter Benigno Laguerre DO Work Phone: [facility] ([facility]) Comment on above: Insurance Authorizat ion ([place] for albuterol inhaler) Start: 07-02-2024 End: 07-02-2024 Telephone encounter Trini Blackburn DO Work Phone: [facility] ([facility]) Comment on above: Referral Information (Cardiology) Start: 07-02-2024 End: 07-02-2024 Office outpatient new 30 minutes Trini Blackburn DO Work Phone: [facility] ([facility]) Comment on above: Depression, unspecif ied depression type (Primary Dx); Mild persistent asthma without complication; Obesity (BMI 30.0-34.9); Palpitations; Lightheadedness Start: 07-02-2024 End: 07-02-2024 ambulatory TRINI BLACKBURN Facility:[facility] Start: 02-12-2024 End: 02-12-2024 Telephone encounter Ila Canales MD Work Phone: [facility] Comment on above: Received Outside Med ical Records ([facility] ED 02/09) Start: 01-18-2024 Refill Ginny UMANZOR.MAINFRAME SOFTWARE DEVELOPER Work Phone: [facility] Comment on above: Refill Request Start: 01-16-2024 Chart abstracting [facility] Work Phone: Neurology Comment on above: PSG Check In Start: 01-13-2024 Refill Nancy LEONARD RN.MAINFRAME SOFTWARE DEVELOPER Work Phone: OB/Gynecology Comment on above: Refill Request Start: 01-10-2024 Telephone encounter Lidia mack RN Cardiology Lab Comment on above: Reminder Call Start: 12-21-2023 Telephone encounter Nancy rdz APRN.MAINFRAME SOFTWARE DEVELOPER Work Phone: OB/Gynecology Comment on above: Insurance Authorizat ion Start: 12-21-2023 End: 12-21-2023 Patient encounter procedure Nancy Viera APRN.MAINFRAME SOFTWARE DEVELOPER Work Phone: OB/Gynecology Comment on above: Gastroesophageal [...] Start: 12-14-2023 End: 12-14-2023 ambulatory ILA CANALES Facility[facility] Start: 12-14-2023 Telephone encounter Juan Manuel Gayle DO Work Phone: Cardiology Comment on above: Appointment Start: 11-22-2023 Refill Ila burk MD Work Phone: [facility] Comment on above: Refill Request [...] encounter status Nancy Viera APRN.CNP Work Phone: [facility] Work Phone: Start: 08-22-2023 End: 08-22-2023 Patient encounter procedure Ila Canales MD Work Phone: [facility] Comment on above: Well adult exam (Marge sofiya Dx); Mild persistent asthma without complication; Neck pain on left side; Cervicogenic headache; Palpitations; Atypical chest pain; Systolic click; Chronic foot pain, left; Tetanus-diphtheria (Td) vaccination Start: 08-22-2023 End: 08-22-2023 Patient encounter status Ila Canales MD Work Phone: [facility] Work Phone: Start: 08-10-2023 Documentation procedure Mammog jesu Coordinator [facility] Start: 08-10-2023 Letter encounter Mammography Coordinator [facility] Department Start: 08-09-2023 End: 08-09-2023 Subsequent hospital visit by physician Screen Mammo [facility] Mammogram Comment on above: Encounter for screen ing mammogram for breast cancer [Z12.31] Start: 08-02-2023 ambulatory Ila burk MD Work Phone: Internal Medicine [facility] Start: 05-30-2023 End: 05-30-2023 Emergency department patient visit [facility]-Emergency Department Work Phone: Start: 05-22-2023 End: 05-22-2023 Subsequent hospital visit by physician Xr [facility] Work Phone: Radiology Comment on above: Subacute cough [R05. 2] Start: 05-20-2023 End: 05-20-2023 Patient encounter procedure César Fernandez MD Work Phone: [facility] Comment on above: Subacute cough (Prim elisha Dx); Hemoptysis; Hoarse voice quality; Asthma with acute exacerbation, unspecified asthma severity, unspecified whether persistent; Acute non-recurrent sinusitis, unspecified location; Mild persistent asthma without complication Start: 05-06-2023 Refill Ila burk MD Work Phone: [facility] Comment on above: Refill Request Start: 04-12-2023 Telephone encounter Ila Canales MD Work Phone: [facility] Comment on above: Medication Request ( [facility] ) Start: 04-02-2023 End: 04-02-2023 Patient encounter procedure Aminah R Srinath DIAZ Work Phone: [facility] Comment on above: LRTI (lower respirat ory tract infection) (Primary Dx) Start: 10-12-2022 Refill Ila burk MD Work Phone: [facility] Comment on above: Refill Request Start: 09-21-2022 Telephone encounter Aminah Ferrer ese PA-C Work Phone: [facility] Comment on above: Results Start: 07-25-2022 End: 07-25-2022 Patient encounter procedure Ila Canales MD Work Phone: [facility] Comment on above: Well adult exam (Marge sofiya Dx); Mild persistent asthma without complication; Vaginal bacteriosis; Atypical chest pain; Adjustment disorder with mixed anxiety and depressed mood; Screening for lipid disorders; Obesity, Class I, BMI 30-34.9 Start: 07-25-2022 End: 07-25-2022 Patient encounter status Ila Canales MD Work Phone: [facility] Start: 06-27-2022 Telephone encounter Ginny babin APRN.CNP Work Phone: [facility] Comment on above: Results Start: 06-25-2022 Documentation procedure Mammog jesu Coordinator [facility] Start: 06-25-2022 Letter encounter Mammography Coordinator [facility] Department Start: 12-01-2021 ambulatory Ila burk MD Work Phone: Internal Medicine Main [place] Start: 11-15-2021 End: 11-15-2021 Subsequent hospital visit by physician [facility] (I-Stat) Work Phone: Cat Scan [...] DTaP,Tdap,Td Vaccine (3 - Td or Tdap) [facility] Start: 09-14-2028 Screening for malign ant neoplasm of cervix [facility] Start: 07-02-2025 Annual PCP Team Manager Sports jane Disease Visit Annual PCP Team Chronic Disease Visit [facility] Start: 02-03-2025 Influenza vaccination [facility] Start: 01-31-2025 End: 01-31-2025 Patient encounter procedure 01/31/2025 11:20 AM EDT Distance [facility] Internal [facility] ([facility]) [address] [facility] [facility] [address] [place], [place] [id number] Trini Blackburn DO [address] [place] [address] [facility] Internal Medicine [facility] ([facility]) Comment on above: Overall health Start: 09-17-2024 End: 09-17-2024 Patient encounter procedure 09/17/2024 9:00 AM EDT Office Visit OB/Gynecology [address] [place] [address] Nancy Viera APRN.MAINFRAME SOFTWARE DEVELOPER [address] [place] [address] Annual OB/Gynecology Comment on above: Annual Start: 08-21-2024 Annual PCP Team Manager Sports jane Disease Visit Annual PCP Team Chronic Disease Visit [facility] Start: 08-21-2024 Anxiety Screening Anxiety Screening [facility] Start: 08-21-2024 Depression Screening Depression Scre ening [facility] Start: 08-08-2024 End: 10-14-2024 MG Breast Screening [facility]CREEN[facility] Radiology Routine Encounter for screening mammogram for breast cancer Expected: 08/08/2024 (Approximate), Expires: 10/14/[address] [facility] Work Phone: Comment on above: Expected: 08/08/2024 (Approximate), Expires: 10/14/2024 Start: 08-08-2024 Screening for malign ant neoplasm of breast Mammogram Screening [facility] Start: 08-08-2024 End: 08-08-2024 Patient encounter procedure 08/08/2024 7:50 AM EST Appointment Mammogram [address] [place] [address] Mammogram Start: 02-29-2024 End: 02-29-2024 Patient encounter procedure 02/29/2024 9:20 AM EDT Office Visit Family Practice [address] [place] [address] Ila Canales MD [address] [address] 6 month follow up Family Practice Comment on above: 6 month follow up Start: 02-14-2024 End: 02-14-2024 Patient encounter procedure 02/14/2024 9:00 PM EDT Office Visit Neurology [address] [place] [address] Palpitations [R00.2]; Atypical chest pain [R07.89]; Systolic click [R01.1]; Daytime hypersomnolence [G47.19] Neurology Comment on above: Palpitations [R00.2] ; Atypical chest pain [R07.89]; Systolic click [R01.1]; Daytime hypersomnolence [G47.19] Start: 02-07-2024 End: 02-07-2024 Patient encounter procedure 02/07/2024 7:30 AM EDT Office Visit OB/Gynecology [address] [place], [place] [id number] Nancy Viera, POCKET GRINDER OPERATOR.MAINFRAME SOFTWARE DEVELOPER [address] [place], [place] [id number] wt mgmt f/u OB/Gynecology Comment on above: wt mgmt f/u Start: 02-04-2024 Covid-19 Vaccine ( season) Covid-19 Vaccine () [facility] Start: 02-04-2024 Covid-19 Vaccine ( season) Covid-19 Vaccine () [facility] Start: 02-04-2024 Influenza vaccination [facility] Start: 01-11-2024 Subsequent hospital visit by physician 01/11/2024 8:00 AM EDT Hospital Encounter Cardiology Lab [address] [place] [address] Palpitations [R00.2] Cardiology Lab Comment on above: Palpitations [R00.2] Start: 01-11-2024 End: 01-11-2024 Patient encounter procedure Cardiology Lab Comment on above: Palpitations [R00.2] Start: 12-21-2023 End: 12-21-2023 Patient encounter procedure 12/21/2023 8:00 AM EDT Office Visit OB/Gynecology [address] [place], [place] [id number] Nancy Viera, LALA.MAINFRAME SOFTWARE DEVELOPER [address], [place] [id number] New wt mgmt consult OB/Gynecology Comment on above: New wt mgmt consult Start: 12-14-2023 End: 12-14-2023 Patient encounter procedure 12/14/2023 3:00 PM EDT Office Visit Cardiology [address], [place] [id number] Juan Manuel Gayle DO [address] [place] [address] Palpitations [R00.2]; Atypical chest pain [R07.89]; Systolic click [R01.1] Cardiology Comment on above: Palpitations [R00.2] ; Atypical chest pain [R07.89]; Systolic click [R01.1] Start: 10-19-2023 End: 10-19-2023 Patient encounter procedure 10/19/2023 1:30 PM EDT Office Visit Podiatry [address] [place], [place] [id number] Benigno Liao [address] [place], [place] [id number] pt getting xray prior to visit Chronic [...] Malaise and fatigue Expected: 09/15/2023, Expires: 12/15/[address] [facility] Work Phone: Comment on above: Expected: 09/15/2023 , Expires: 12/15/2023 Start: 09-15-2023 End: 12-15-2023 CBC panel - Blood by Automated count COMPLETE BLOOD COUNT Lab Routine Class 1 obesity with body mass index (BMI) of 31.0 to 31.9 in adult, unspecified obesity type, unspecified whether serious comorbidity present Screening for deficiency anemia Expected: 09/15/2023, Expires: 12/15/[address] [facility] Work Phone: Comment on above: Expected: 09/15/2023 , Expires: 12/15/2023 Start: 09-15-2023 End: 12-15-2023 Comprehensive metabolic 2000 panel - Serum or Plasma COMPREHENSIVE METABOLIC PANEL Lab Routine Class 1 obesity with body mass index (BMI) of 31.0 to 31.9 in adult, unspecified obesity type, unspecified whether serious comorbidity present Screening for diabetes mellitus Screening for metabolic disorder Expected: 09/15/2023, Expires: 12/15/[address] [facility] Work Phone: Comment on above: Expected: 09/15/2023 , Expires: 12/15/2023 Start: 09-15-2023 End: 12-15-2023 Hemoglobin A1c in Blood HEMOGLOBIN A1C Lab Routine Class 1 obesity with body mass index (BMI) of 31.0 to 31.9 in adult, unspecified obesity type, unspecified whether serious comorbidity present Screening for diabetes mellitus Expected: 09/15/2023, Expires: 12/15/[address] [facility] Work Phone: Comment on above: Expected: 09/15/2023 , Expires: 12/15/2023 Start: 09-15-2023 End: 12-15-2023 Insulin [Units/volume] in Serum or Plasma INSULIN ASSAY BLOOD Lab Routine Class 1 obesity with body mass index (BMI) of 31.0 to 31.9 in adult, unspecified obesity type, unspecified whether serious comorbidity present Screening for diabetes mellitus Expected: 09/15/2023, Expires: 12/15/[address] [facility] Work Phone: Comment on above: Expected: 09/15/2023 , Expires: 12/15/2023 Start: 09-15-2023 End: 12-15-2023 Lipid 1996 panel - Serum or Plasma LIPID PANEL BASIC Lab Routine Class 1 obesity with body mass index (BMI) of 31.0 to 31.9 in adult, unspecified obesity type, unspecified whether serious comorbidity present Screening cholesterol level Expected: 09/15/2023, Expires: 12/15/[address] [facility] Work Phone: Comment on above: Expected: 09/15/2023 , Expires: 12/15/2023 Start: 09-15-2023 End: 12-15-2023 Thyrotropin [Units/volume] in Serum or Plasma THYROID STIMULATING HORMONE Lab Routine Class 1 obesity with body mass index (BMI) of 31.0 to 31.9 in adult, unspecified obesity type, unspecified whether serious comorbidity present Screening for thyroid disorder Malaise and fatigue Expected: 09/15/2023, Expires: 12/15/[address] [facility] Work Phone: Comment on above: Expected: 09/15/2023 , Expires: 12/15/2023 Start: 07-25-2023 ANNUAL PCP TEAM PARTS COUNTER ASSOCIATE JANE DISEASE VISIT ANNUAL PCP TEAM CHRONIC DISEASE VISIT [facility] Start: 07-25-2023 COVID-19 VACCINE (3 - Booster for Moderna series) COVID-19 VACCINE (3 - Booster for Moderna series) [facility] Comment on above: Postponed from 10/14 (Declined at this time) Start: 07-25-2023 PNEUMOCOCCAL (2 - PCV) PNEUMOCOCCAL (2 - PCV) [facility] Comment on above: Postponed from 06/17 (Declined at this time) Start: 07-25-2023 Pneumococcal vaccination [facility] Comment on above: Postponed from 06/17 (Declined at this time) Start: 07-25-2023 Urine microalbumin profile [facility] Comment on above: Postponed from 07/12 (Declined at this time) Start: 06-24-2023 Mammography [facility] Start: 06-24-2023 Screening for malign ant neoplasm of breast Mammogram Screening [facility] Start: 06-05-2023 Behavioral Health Screening Behavioral Health Screening [facility] Start: 06-05-2023 Depression Assessment Depression Ass essment [facility] Start: 05-30-2023 [facility] Start: 02-08-2023 HPV TESTING HPV TESTING [facility] Start: 02-08-2023 PAP TESTING PAP TESTING [facility] Start: 02-08-2023 Screening for malign ant neoplasm of cervix [facility] Start: 02-03-2023 Covid-19 Vaccine (3 - 2023-24 season) Covid-19 Vaccine () [facility] Start: 02-03-2023 Influenza vaccination [facility] Start: 12-02-2022 Influenza vaccination INFLUENZA (#1) [facility] Comment on above: Postponed from 02/03 (Declined at this time) Start: 07-25-2022 End: 09-24-2022 CBC panel - Blood by Automated count CBC Lab Routine Atypical chest pain Expected: 07/25/2022, Expires: 09/24/[address] [facility] Work Phone: Comment on above: Expected: 07/25/2022 , Expires: 09/24/2022 Start: 07-25-2022 End: 09-24-2022 Comprehensive metabolic 2000 panel - Serum or Plasma COMP METABOLIC PANEL Lab Routine Atypical chest pain Expected: 07/25/2022, Expires: 09/24/[address] [facility] Work Phone: Comment on above: Expected: 07/25/2022 , Expires: 09/24/2022 Start: 07-25-2022 End: 09-24-2022 Lipid 1996 panel - Serum or Plasma LIPID PANEL BASIC Lab Routine Screening for lipid disorders Expected: 07/25/2022, Expires: 09/24/[address] [facility] Work Phone: Comment on above: Expected: 07/25/2022 , Expires: 09/24/2022 Start: 07-25-2022 End: 09-24-2022 Thyrotropin [Units/volume] in Serum or Plasma TSH BLD Lab Routine Atypical chest pain Adjustment disorder with mixed anxiety and depressed mood Expected: 07/25/2022, Expires: 09/24/[address] [facility] Work Phone: Comment on above: Expected: 07/25/2022 , Expires: 09/24/2022 Start: 07-01-2022 Adult depression screening assessment DEPRESSION SCREENING [facility] Start: 07-01-2022 ANNUAL PCP TEAM PARTS COUNTER ASSOCIATE JANE DISEASE VISIT ANNUAL PCP TEAM CHRONIC DISEASE VISIT [facility] Start: 06-05-2022 DEPRESSION ASSESSMENT DEPRESSION ASS ESSMENT [facility] Start: 02-03-2022 Influenza vaccination [facility] Start: 01-19-2022 COVID-19 VACCINE (3 - Booster for Moderna series) COVID-19 VACCINE (3 - Booster for Moderna series) [facility] Start: 10-14-2021 COVID-19 VACCINE (3 - Booster for Moderna series) COVID-19 VACCINE (3 - Booster for Moderna series) [facility] Start: 2020 Mammography MAMMOGRAM [facility] Start: 07-12-2020 Urine microalbumin profile [facility] Start: 06-17-2012 PNEUMOCOCCAL (2 - PCV) PNEUMOCOCCAL (2 - PCV) [facility] Start: 09-13-2007 HPV Vaccine (1 - 3-d ose SCDM series) HPV Vaccine (1 - 3-dose SCDM series) [facility] Start: 09-13-1999 Hepatitis B Vaccine (1 of 3 - 19+ 3-dose series) Hepatitis B Vaccine (1 of 3 - 19+ 3-dose series) [facility] Start: 1998 Anxiety Screening Anxiety Screening [facility] Start: 1998 Depression Screening Depression Scre ening [facility] Start: 1998 SPIROMETRY SPIROMETRY [facility] Start: 1980 HEPATITIS B (1 of 3 - 3-dose series) HEPATITIS B (1 of 3 - 3-dose series) [facility] Start: 1980 Hepatitis B Vaccine (1 of 3 - 3-dose series) Hepatitis B Vaccine (1 of 3 - 3-dose series) [facility] BACTERIAL VAGINOSIS NAAT BACTERI AL VAGINOSIS NAAT Lab Routine Vaginal discharge Abdominal bloating 09/15/2023 12:[address] [facility] Work Phone: ROXANNE/TRICHOMONAS NAAT ROXANNE /TRICHOMONAS NAAT Lab Routine Vaginal discharge Abdominal bloating 09/15/2023 12:[address] [facility] Work Phone: Chlamydia trachomatis+Neisseria gonorrhoeae DNA [Presence] in Unspecified specimen by VIV with probe detection GONORRHEA/CHLAMYDIA NAAT Lab Routine Screen for STD (sexually transmitted disease) 09/15/2023 12:[address] [facility] Work Phone: End: 07-27-2023 Diagnostic mammography computer-aided detcj uni [facility] Radiology Routine Inconclusive mammogram 1 Occurrences starting 06/27/2022 until 07/27/[address] [facility] Work Phone: Comment on above: 1 Occurrences starti ng 06/27/2022 until 07/27/2023 ECG COMPLETE [place] Work Phone: Comment on above: Ordered: 07/25/2022 End: 12-13-2024 Echocardiography ECHO Cardiology Routine Palpitations Atypical chest pain Systolic click Daytime hypersomnolence 1 Occurrences starting 12/14/2023 until 12/13/[address] [facility] Work Phone: Comment on above: 1 Occurrences starti ng 12/14/2023 until 12/13/2024 End: 12-13-2024 EXERCISE STRESS ECG (WITHOUT IMAGING) EXERCISE STRESS ECG (WITHOUT IMAGING) Cardiology Routine Palpitations Atypical chest pain Systolic click Daytime hypersomnolence 1 Occurrences starting 12/14/2023 until 12/13/2024 [facility] Comment on above: 1 Occurrences starti ng 12/14/2023 until 12/13/2024 End: 08-31-2024 MG Breast Screening [facility] SCREEN[facility] Radiology Routine Encounter for screening mammogram for breast cancer 1 Occurrences starting 08/02/2023 until 08/31/[address] [facility] Work Phone: Comment on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 [id number] [address] Estrada Beck documented in this encounter [facility] 01-10-2024 Telephone encounter Note Spoke to pt regarding reminder and instructions for stress test tomorrow. This included where to check in, length of test and no caffeine for 12 hours prior to test. [facility] 01-10-2024 Miscellaneous Notes Spoke to pt regarding reminder and instructions for stress test tomorrow. This included where to check in, length of test and no caffeine for 12 hours prior to test. 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 Spencer Mitchell MA Omeprazole prescribed and esomeprazole discontinued. Nancy Viera APRN.CNP Received prior authorization from patients pharmacy. Omeprazole delayed release capsules or Generic pantoprazole delayed release tablets are preferred. Are we able to use one of these options instead? Spencer Mitchell MA documented in this encounter [facility] 12-21-2023 Telephone encounter Note Omeprazole prescribed and esomeprazole discontinued. Nancy Viera APRN.CNP [facility] 12-21-2023 Telephone encounter Note Received prior authorization from patients pharmacy. Omeprazole delayed release capsules or Generic pantoprazole delayed release tablets are preferred. Are we able to use one of these options instead? Spencer Mitchell MA [facility] 12-21-2023 Instructions Nancy Viera APRN.MAINFRAME SOFTWARE DEVELOPER - 12/21/2023 7:50 AM EDT Nexium generic [...] slots. This should not be done on [facility] as you will not be scheduled [...] that affects nearly one-third of the adult [place] population (approximately 60 million). The number of overweight and obese Americans has continued to increase since 1960, a trend that is not slowing down. Today, 64.5 percent of adult Americans (about 127 million) are categorized as being overweight or obese. Each year, obesity causes at least 300,000 excess deaths in the [place] and healthcare costs of [place] adults with obesity amount to approximately $100 [...] the gallbladder, breast, uterus, cervix, or ovaries https://my.[facility].org/healt h/diseases/41362-iduqvl-hfpxbjjdnl-w atient-education - Eat primarily whole foods. Limit [...] (nih.gov) Is metformin a wonder drug? - [facility] Common side effects of this medication [...] associated with weight loss (RafaJodiereivan, 2019). https://ro.co/health-guide/wellbutri t-xnj-gfwggj-loss/ Bupropion: Patient drug information Access [employer] for additional drug information, tools, and databases. Copyright 1930-5360 [employer]. All rights reserved. Contributor Disclosures (For [...] much, and when it happened. Last Reviewed [id number] Consumer Information Use and Disclaimer This generalized [...] or approved for treating a specific patient. [employer]. and its affiliates disclaim any warranty or liability relating to this information or the use thereof. The use of this information is governed by the Terms of Use, available at https://www.woltersVR1er.com/en/kno w/ytvbuslm-mytmqqkahvgoe-twurn. 2021 [employer]. and its affiliates and/or licensors. All rights reserved. 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 Difficulty losing weight? Y recently History of weight loss with regain? Y - Last Wt 12/21/23 : 88 kg (194 lb) 5% weight loss = 184 lbs, 10% weight loss = 175 lbs [place] body weight: 57 kg (125 lb 10.6 [...] 3/week, OJ, tea with honey Bedtime - [id number] Quality of diet: 24hr recall suggests unhealthy diet. Characterization of diet:Unstructured, unhealthy snacking, excessive cravings, evening snacking, and increased consumption of sugar sweetened beverages. Workers' Compensation Claims Supervisor of impaired eating habits:excessive hunger, lack of satiety, mindlessness , boredom, emotion, and stress Eating Disorder no Cravings: sweet, salty and crunchy Sleep Duration: 5 -10 hours . TITO NO - roll up guider operator ordered a sleep study, needs to schedule; CPAP NO Stress Stress:yes , Cause:Work, Financial, personal Obesity Related Comorbidities: Prior Weight Loss Surgery:No PAST MEDICAL HISTORY Diagnosis Date Human papillomavirus in conditions classified elsewhere and of unspecified site Menorrhagia resolved with ablation Migraines Unspecified asthma(493.90) PAST SURGICAL HISTORY Procedure Laterality Date ESSURE 2011 OFFICE ENDOMETRIAL ABLATION 2012 UNSPECIFIED ORAL SURGERY PROCEDURE, BY REPORT [place] teeth FAMILY HISTORY Problem Relation Age of [...] sedentary, second job active. 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 Current Contraception: tubal sterilization Obesity ROS/ FHx GEN: Fatigue:yes-most of the day CV: h/o palpitations/cardiac arrhythmia, Chest pain: yes, recent sharp pain, heaviness, neck pain-seeing Medical Coding Instructor - Currently wearing [employer]ric[employer] heart monitor HTN: no PULM: Asthma:yes GI: [...] which included preparing to see the patient, onxd-zh-jfsf patient care, completing clinical documentation, obtaining and/or reviewing separately obtained history, performing a medically appropriate examination, counseling and educating the patient/family/caregiver, and ordering medications, tests, or procedures. documented in this encounter [facility] 12-14-2023 Nurse Note EVENT MONITOR DISPOSABLE PATCH INSTRUCTIONS Patient Name: Abdoul Vazquez [facility] Number: [id number] Skin prepped and cleansed with alcohol Patch secured to prepped area Monitor Activated Serial #: [id number] Patient Instructed: Prescribed order timeframe Bathing guidelines Usage of event button and diary documentation Return of monitor at the end of prescribed order Call with problems [phone] or [phone] ext. [phone] Patient expresses a good understanding of instructions Laura Duncan MA [facility] 12-14-2023 Nurse Note EVENT MONITOR DISPOSABLE PATCH INSTRUCTIONS Patient Name: Abdoul Faith Clinic Number: [id number] Skin prepped and cleansed with alcohol Patch secured to prepped area Monitor Activated Serial #: [id number] Patient Instructed: Prescribed order timeframe Bathing guidelines Usage of event button and diary documentation Return of monitor at the end of prescribed order Call with problems [phone] or [phone] ext. [phone] Patient expresses a good understanding of instructions Laura Duncan MA documented in this encounter [facility] 12-14-2023 Telephone encounter Note Please call Pt to schedule Echo and Stress ECG ordered by Dr Gayle today. [facility] 12-14-2023 Miscellaneous Notes Please call Pt to schedule Echo and Stress ECG ordered by Dr Gayle today. documented in this encounter [facility] 12-14-2023 Note HNO ID: [id number] Author: JUAN MANUEL GAYLE, DO Service: ? Author Type: Physician Type: Progress Notes Filed: 12/14/2023 17:00 Note Text: [facility] OUTPATIENT VISIT DATE December 14, 2023 PRIMARY CARE PHYSICIAN: Ila Canales [address] [place] [address] [place] [address] HISTORY OF PRESENT ILLNESS: Ms. Faith is [...] the parents. 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 She is a non-smoker, social drinker. She [...] provokable response and possible dysrhythmia 3. 14-day hall monitor. The patient may however take this [...] for leg swelling. (more content not included)... [facility] History of Present illness Narrative Images from the original note were not included. [facility] OUTPATIENT VISIT DATE December 14, 2023 PRIMARY CARE PHYSICIAN: Ila Canales [address] [place] [address] [place] [address] HISTORY OF PRESENT ILLNESS: Ms. Faith is [...] the parents. 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 She is a non-smoker, social drinker. She [...] provokable response and possible dysrhythmia 3. 14-day hall monitor. The patient may however take this [...] 2011 UNSPECIFIED ORAL SURGERY PROCEDURE, BY REPORT [place] teeth Social History Tobacco Use Smoking status: [...] day. Juan Manuel Gayle, , FACC, FAC Art Handler, [facility] Ambulatory Cardiology Art Handler, [facility] Cardiac Rehabilitation Art Handler, [facility] Cardiac Rehabilitation Art Handler, [facility] Congestive [facility] Failure Clinic Art Handler, [facility] Ambulatory Cardiology Clinical Datastage Architect Profressor of Medicine, [facility] Staff Medical Coding Instructor, Erick Vanegas Department of Cardiovascular Medicine/Heart and Vascular [place], [facility] Please note: This note has been produced using speech recognition software and may contain errors related to that system including joann, punctuation, spelling, words, gender and phrases that may be inappropriate. documented in this encounter [facility] 11-22-2023 Telephone encounter Note Pharmacy verified in [facility] Patient has been identified by name [...] 09/18/2023 5.1 Please advise. ANJU RUIZ MA [facility] 11-22-2023 Miscellaneous Notes Pharmacy verified in [facility] Patient has been identified by name [...] ANJU RUIZ MA documented in this encounter [facility] 10-04-2023 Telephone encounter Note 2nd attempt,left VM [facility] 10-04-2023 Miscellaneous Notes 2nd attempt,left VM Dr. Fernandes appfady cancelled and new appt in [place] scheduled. 1st attempt to notify pt, sent MC message and LVM. documented in this encounter [facility] 10-02-[address] Dena galan cancelled and new appt in [place] scheduled. 1st attempt to notify pt, sent MC message and LVM. [facility] 09-15-2023 Instructions Nancy Viera APRN.MAINFRAME SOFTWARE DEVELOPER - 09/15/2023 12:02 PM EDT - Eat [...] immediately a meal. documented in this encounter [facility] 09-15-2023 History of Present illness Narrative Artist Color Separation offered: Patient declines. Abdoul is a 43 [...] L3 SAB0 IAB0 Ectopic0 Multiple0 Live Births3 Career Coordinator History LMP: 08/01/2023 (Approximate), Ablation Age at Menarche: Age at First : Age at Menopause: Career Coordinator History Comments: Sexual Activity: Yes; Male; essure- ablation Contraception: Other PAST MEDICAL HISTORY Diagnosis Date Human papillomavirus in conditions classified elsewhere and of unspecified site Menorrhagia resolved with ablation Unspecified asthma(493.90) PAST SURGICAL HISTORY Procedure Laterality Date ESSURE 2012 OFFICE ENDOMETRIAL ABLATION 2011 UNSPECIFIED ORAL SURGERY PROCEDURE, BY REPORT [place] teeth FAMILY HISTORY Problem Relation Age of [...] external genitalia normal, normal Bartholin's glands, urethra, Chambers's glands, no vulvar lesions, no cervical lesions, [...] - THYROID STIMULATING HORMONE - CONSULT TO [facility] WEIGHT MANAGEMENT PROGRAM - Eat primarily [...] 4 - Moderate documented in this encounter [facility] 08-22-2023 History of Present illness Narrative [...] 2011 UNSPECIFIED ORAL SURGERY PROCEDURE, BY REPORT [place] teeth ALLERGIES Augmentin [Amoxicillin-Pot Clavulanate] and Seasonal [...] VACCINE, AGE 7+ YR, 5 LF TETANUS ([facility]) Requested Prescriptions Signed Prescriptions Disp Refills albuterol [...] 2023 4:33 PM documented in this encounter [facility] 08-10-2023 Miscellaneous Notes August 10, 2023 PID: [id number] Abdoul Faith [address] [place], [place] [address] Dear Ms. Faith, We are pleased to [...] report will be kept on file at [facility] as part of your permanent medical record and are available for your continuing care. Thank you for allowing us to help in meeting your health care needs. Sincerely, Dr. Flores Interpreting Radiologist [facility] (Normal over 40) documented in this encounter [facility] 08-09-2023 History of Present illness Narrative [...] PATIENT PRESENTS WITH AN IMPLANTABLE OR ATTACHED MUD LOGGER: No RADIOLOGY DEPARTMENT: Mammography PERIPHERAL IV DATA: Not applicable SIGNED BY: Abdoul Garcia [employer] Shauna August 09, 2023 1:39 PM documented in this encounter [facility] 05-22-2023 History of Present illness Narrative [...] 2023 10:16 AM documented in this encounter [facility] 05-20-2023 History of Present illness Narrative [...] César Fernandez MD documented in this encounter [facility] 05-15-2023 Miscellaneous Notes Called patient. Verified name and date of . Scheduled appointment. Jennifer Doe LPN Images from the original note were not included. Dilip Loving PA-C [facility] Urology Pool 3 days ago Not seen in over a year, need visit and urine testing documented in this encounter [facility] 05-08-2023 Miscellaneous Notes Pharmacy verified in [facility] Patient has been identified by name [...] advise. Reina Null documented in this encounter [facility] 04-12-2023 Miscellaneous Notes Pharmacy verified in [facility] Patient has been identified by name [...] Michelle Brown LPN documented in this encounter [facility] 04-02-2023 History of Present illness Narrative This note was created using [employer]. Subjective Abdoul Faith is a 42 year [...] No diarrhea or vomiting. She used multiple jzki-der-fhdrwfi cough and cold medicines without relief. She [...] 2012 UNSPECIFIED ORAL SURGERY PROCEDURE, BY REPORT [place] FAMILY HISTORY Problem Relation Age of [...] Aminah Yo PA-C documented in this encounter [facility] 10-13-2022 Miscellaneous Notes Patient phones requesting refills as follows: LAST REFILL 07/25/22 LAST OV 07/25/22 Requested Prescriptions Pending Prescriptions Disp Refills albuterol HFA (VENTOLIN HFA) 90 mcg/actuation inhaler 18 g 0 Sig: Inhale 2 Puffs as instructed every 4 hours as needed for wheezing/shortness of breath. Please review and advise. Chloe aWddell LPN documented in this encounter [facility] 09-21-2022 Miscellaneous Notes Spoke with patient. [...] blood in urine. documented in this encounter [facility] 07-25-2022 History of Present illness Narrative [...] 2012 UNSPECIFIED ORAL SURGERY PROCEDURE, BY REPORT [place] FAMILY HISTORY Problem Relation Age of [...] 2022 5:16 PM documented in this encounter [facility] 06-29-2022 Miscellaneous Notes Third attempt to reach; called patient at [phone]. Left message on voicemail for patient to return call or check MyChart for message from provider. No contact made after 3 attempts. MyChart message sent. Called patient at [phone], left message on voicemail for patient to [...] Ginny Gongora APRN.SIDNEY documented in this encounter [facility] 06-25-2022 Miscellaneous Notes June 27, 2022 PID: [id number] Abdoul Faith [address] [place] [address] Dear Ms. Faith, Your recent breast imaging [...] who ordered/prescribed your screening mammogram: Please call [phone] or [phone]: [phone] to schedule an appointment for your additional [...] and reports are kept on file at [facility] as part of your permanent medical record, and are available for your continuing care. Thank you for allowing us to help in meeting your health care needs. Sincerely, Dr. Escobedo Interpreting Radiologist [facility] (Additional imaging) documented in this encounter [facility] 11-15-2021 History of Present illness Narrative [...] summary Note Date/Time March 13, 2025 12:58pm [facility] Medical Records Department [address] [place] [address] Emergency Department Summary 03/13/25 MR#: [id number] Acct: [id number] Name: ABDOUL FAITH Rep #:[id number] : [...] 71.4 H Lymph % (Auto) 17.5 L Green % (Auto) 6.3 Eos % (Auto) 4.0 [...] Sl. Cloudy Urine pH 6.0 Ur Specific Gobles 1.020 Urine Protein 30 H Urine Glucose [...] right kidney. Normal appendix Cholelithiasis Reading Location: [facility] Discharge Plan Triage Chief Complaint: Abd Pain [...] Dr. Edilma Ritter of urology. Print Language: Mauritanian Disposition Disposition: Home, Self Care What to do if you have Problems For any increased pain, shortness of breath, bleeding, nausea or vomiting, chestpain, or any unexpected problems, contact your Primary Care Provider. Call [facility] ([phone]) or report to the closest Emergency Room. Call 911 if necessary. 03/13/25 1711 <Electronically signed by Derek Sanchez MD> Cosigner Signature (if applicable): CC: Dr. Rj Canales MD ~ Signed [facility] Work Phone: Evaluation note* Diagnosis Recurrent UTI (urinary tract infection) Urinary tract infection, site not specified [facility] Diagnosis Encounter for screening mammogram for breast cancer [facility] Diagnosis Inconclusive mammogram- Primary [facility]* Diagnosis Well adult exam- Primary Routine general medical examination at a health care facility Mild persistent asthma without complication Unspecified asthma Vaginal bacteriosis Vaginitis and vulvovaginitis, unspecified Atypical chest pain Other chest pain Adjustment disorder with mixed anxiety and depressed mood Screening for lipid disorders Obesity, Class I, BMI 30-34.9 Obesity, unspecified [facility] Diagnosis Mild persistent asthma without complication Unspecified asthma [facility] Diagnosis LRTI (lower respiratory tract infection)- Primary Other diseases of respiratory system, not elsewhere classified [facility] Diagnosis Mild persistent asthma without complication Unspecified asthma [facility] Diagnosis Recurrent UTI (urinary tract infection) Urinary tract infection, site not specified [facility] Diagnosis Subacute cough- Primary Cough Hemoptysis Hemoptysis, unspecified Hoarse voice quality Dysphonia Asthma with acute exacerbation, unspecified asthma severity, unspecified whether persistent Acute non-recurrent sinusitis, unspecified location Mild persistent asthma without complication Unspecified asthma [facility] noteNo assessment information availableWCleveland [facility] Work Phone: Evaluation note* Diagnosis Encounter for screening mammogram for breast cancer [facility]* Diagnosis Well adult exam- Primary Routine general medical examination at a health care facility Mild persistent asthma without complication Unspecified asthma Neck pain on left side Cervicalgia Cervicogenic headache Headache Palpitations Atypical chest pain Other chest pain Systolic click Undiagnosed cardiac murmurs Chronic foot pain, left Tetanus-diphtheria (Td) vaccination Need for prophylactic vaccination with tetanus-diphtheria (Td) [facility] Diagnosis Encounter for gynecological examination [...] serious comorbidity present [facility] Diagnosis Palpitations- Primary Atypical chest pain Other chest pain Systolic click Undiagnosed cardiac murmurs FINLEY (dyspnea on exertion) Other dyspnea and respiratory abnormality Daytime hypersomnolence Hypersomnia, unspecified [facility] Diagnosis Gastroesophageal reflux disease, unspecified [...] serious comorbidity present [facility] Diagnosis Gastroesophageal reflux disease, unspecified whether esophagitis present- Primary [facility]* Diagnosis Gastroesophageal reflux disease, unspecified whether esophagitis present [facility] Diagnosis Mild persistent asthma without complication Unspecified asthma [facility] Diagnosis Subacute cough Cough Hemoptysis Hemoptysis, unspecified [facility]* Diagnosis Depression, unspecified depression type- Primary Mild persistent asthma without complication Unspecified asthma Obesity (BMI 30.0-34.9) Obesity, unspecified Palpitations Lightheadedness Dizziness and giddiness [facility] Diagnosis Mild persistent asthma without complication Unspecified asthma [facility] Diagnosis Mild persistent asthma without complication- Primary Unspecified asthma [facility] Diagnosis Depression, unspecified depression type [facility]* Diagnosis Mild persistent asthma without complication (HCC) Unspecified asthma documented in this encounter [facility] Discharge instructionsAdditional Instructions You have a [...] and follow-up with Dr. Edilma Ritter of urology.[facility] Work Phone: Reason for referral (narrative)* Diagnostic Procedure Only (Routine) - Pending Review Specialty Diagnoses / Procedures Referred By Renzo t Referred To Contact [facility] Diagnoses Encounter for screening mammogram for breast cancer Procedures PERCY SCREENING SCREENING MAMMOGRAPHY BI 2-VIEW BREAST INC Ila He MD [address] [place] [address] [place] [address] [facility] [address] [place] [id number] Referral ID Status Reason Start Date Expiration Date Visits Requested Visits Authorized [id number] Pending Review Auto-Generat ed Referral 12/01/2021 12/31/2022 1 1 [facility] for referral (narrative)* Diagnostic Procedure Only (Routine) - Authorized Specialty Diagnoses / Procedures Referred By Contac t Referred To Contact [facility] Diagnoses Inconclusive mammogram Procedures US BREAST LTD LT US BREAST UNI REAL TIME WITH IMAGE LIMITED Ginny Gongora APRN.CNP [address] [place] [address] [facility] [address] [place] [address] Referral ID Status Reason Start Date Expiration Date Visits Requested Visits Authorized [id number] Authorized Auto-Generat ed Referral 06/27/2022 07/27/2023 1 1 * Diagnostic Procedure Only (Routine) - Authorized Specialty Diagnoses / Procedures [facility] To Contact [facility] Diagnoses Inconclusive mammogram Procedures PERCY DIAGNOSTIC LT DIAGNOSTIC MAMMOGRAPHY COMPUTER-AIDED DETCJ UNI Ginny Gongora APRN.CNP [address] [place] [address] [facility] [address] [place] [address] Referral ID Status Reason Start Date Expiration Date Visits Requested Visits Authorized [id number] Authorized Auto-Generat ed Referral 06/27/2022 07/27/2023 1 1 [facility] for referral (narrative)* Outpatient Procedure (Routine) - Closed Specialty Diagnoses / Procedures [facility] Diagnoses Atypical chest pain Procedures ECG COMPLETE ECG ROUTINE ECG W/LEAST 12 LDS W/I&R Ila Canales MD [address] [facility] [place] [address] [facility] [address] [place] [id number] Referral ID Status Reason Start Date Expiration Date V isits Requested Visits Authorized [id number] Closed Auto-Generate d Referral 07/25/2022 07/25/2023 1 1 [facility] for referral (narrative)* Diagnostic Procedure Only (Routine) - Authorized Specialty Diagnoses / Procedures Referred By Renzo t Referred To Contact [facility] Diagnoses Encounter for screening mammogram for breast cancer Procedures PERCY SCREENING SCREENING MAMMOGRAPHY BI 2-VIEW BREAST INC CAD Javon, Ila Olivia MD [address] [place] [address] [place] [address] [facility] [address] [place] [address] Referral ID Status Reason Start Date Expiration Date Visits Requested Visits Authorized [id number] Authorized Auto-Generat ed Referral 08/02/2023 08/31/2024 1 1 [facility] for referral (narrative)* Outpatient Procedure (Routine) - New Request Specialty Diagnoses / Procedures Referred By Renzo shrestha Referred To Contact [facility] Diagnoses Palpitations Atypical chest pain Systolic click Daytime hypersomnolence Procedures EXERCISE STRESS ECG (WITHOUT IMAGING) Juan Manuel Gayle DO [address] [place] [address] [address] Referral ID Status Reason Start Date Expiration Date Visits Requested Visits Authorized [id number] New Request Auto-Generat ed Referral 12/14/2023 12/13/2024 1 1 * Outpatient Procedure (Routine) - New Request Specialty Diagnoses / Procedures Referred By Renzo shrestha Referred To Contact [facility] Diagnoses Palpitations Atypical chest pain Systolic click Daytime hypersomnolence Procedures ECHO ECHO TTHRC R-T 2D W/WOM-MODE COMPL SPEC&COLR D Juan Manuel Gayle DO [address] [place] [address] [address] Referral ID Status Reason Start Date Expiration Date Visits Requested Visits Authorized [id number] New Request Auto-Generat ed Referral 12/14/2023 12/13/2024 1 1 [facility]No reason for referral information availableWCleveland [facility] Work Phone: Reason for visit Narrative* Diagnostic Procedure Only (Routine) - Closed Specialty Diagnoses / Procedures Referred By Renzo shrestha Referred To Contact [facility] Diagnoses Encounter for screening mammogram for breast cancer Procedures PERCY SCREENING SCREENING MAMMOGRAPHY BI 2-VIEW BREAST INC Ila He MD [address] [facility] [address] [place] [address] [facility] [address] [place] [address] Referral ID Status Reason Start Date Expiration Date V isits Requested Visits Authorized [id number] Closed Auto-Generate d Referral 08/02/2023 08/31/2024 1 1 [facility] Summary Purpose Family History No Family History Records Found Relationship Condition Age at Onset Recorded Date/T rodney father Asthma Unknown Obesity Unknown grandfather Chronic obstructive pulmonary disease Unk nown son Asthma Unknown mother Obesity Unknown Advance Directives No Advanced Directives Records Found Advance Directive Response Recorded Date/ Time Living Will No May 30 023 9:09am Power of Corporate Auditor No May 30, 2023 9:09am Advance Directive Response Recorded Date/ Time Do you have a Healthcare Power of Corporate Auditor? No March 13, 2025 9:31am Reason for Referral Specialty Diagnoses / Procedures Referred By Renzo shrestha Referred To Contact CT IMAGING Diagnoses Recurrent UTI (urinary tract infection) Procedures CT FLANK WO IVCON CT ABD & PELVIS W/O CONTRAST Dilip Loving PA-C [address] [place] [address] Ct Imaging Referral ID Status Reason Start Date Expiration Date V isits Requested Visits Authorized [id number] Closed Auto-Generate d Referral 11/05/2021 12/20/2021 1 1 Specialty Diagnoses / Procedures Referred By Renzo shrestha Referred To Contact Diagnoses Mild persistent asthma without complication Ginny Gongora, LALA.MAINFRAME SOFTWARE DEVELOPER [address] [place] [address] Referral ID Status Reason Start Date Expiration Date V isits Requested Visits Authorized [id number] Pending Review 1 1 Specialty Diagnoses / Procedures Referred By Contac t Referred To Contact Diagnoses Mild persistent asthma without complication César Fernandez MD [address] [place] [address] Referral ID Status Reason Start Date Expiration Date Visits Re quested Visits Authorized [id number] Closed 1 1 Specialty Diagnoses / Procedures Referred By Contac t Referred To Contact Neurology Diagnoses Neck pain on left side Cervicogenic headache Procedures CONSULT TO NEUROLOGY OFFICE/OUTPATIENT [facility] 60 MINUTES Ila Canales MD [address] [place] [address] Referral ID Status Reason Start Date Expiration Date Visits Requested Visits Authorized [id number] Authorized PCP Requested Referral 08/22/2023 08/21/2024 1 1 Specialty Diagnoses / Procedures Referred By Contac t Referred To Contact Cardiology Diagnoses Palpitations Atypical chest pain Systolic click Procedures CONSULT TO CARDIOLOGY OFFICE/OUTPATIENT [facility] 60 MINUTES Ila Canales MD [address] [facility] [place] [address] Referral ID Status Reason Start Date Expiration Date Visits Requested Visits Authorized [id number] Authorized PCP Requested Referral 08/22/2023 08/21/2024 1 1 Specialty Diagnoses / Procedures Referred By Contac t Referred To Contact XR IMAGING Diagnoses Chronic foot pain, left Procedures XR FOOT GENERAL 3V AP/LAT/OBL LEFT RADEX FOOT COMPLETE MINIMUM 3 VIEWS Ila Canales MD [address] [address] [place] [address] Referral ID Status Reason Start Date Expiration Date Visits Requested Visits Authorized [id number] Pending Review Auto-Generat ed Referral 08/22/2023 09/20/2024 1 1 Specialty Diagnoses / Procedures Referred By Contac t Referred To Contact Podiatry Diagnoses Chronic foot pain, left Procedures CONSULT TO PODIATRY OFFICE/OUTPATIENT [facility] 60 MINUTES Ila Canales MD [address] [address] Referral ID Status Reason Start Date Expiration Date Visits Requested Visits Authorized [id number] Authorized PCP Requested Referral 08/22/2023 08/21/2024 1 1 Specialty Diagnoses / Procedures Referred By Contac t Referred To Contact [facility] Diagnoses Class 1 obesity with body mass index (BMI) of 31.0 to 31.9 in adult, unspecified obesity type, unspecified whether serious comorbidity present Procedures CONSULT TO [facility] WEIGHT MANAGEMENT PROGRAM OFFICE/OUTPATIENT [facility] 60 MINUTES Nancy Viera APRN.MAINFRAME SOFTWARE DEVELOPER [address] [place] [address] Nancy Viera APRN.MAINFRAME SOFTWARE DEVELOPER [address] [place] [address] Referral ID Status Reason Start Date Expiration Date Visits Requested Visits Authorized [id number] Authorized PCP Requested Referral Auto-Generate d Referral 09/15/2023 09/14/2024 1 1 Specialty Diagnoses / Procedures Referred By Antelmoac t Referred To Contact [facility] Diagnoses Encounter for screening mammogram for breast cancer Procedures PERCY SCREENING SCREENING MAMMOGRAPHY BI 2-VIEW BREAST INC CAD Nancy Viera APRN.MAINFRAME SOFTWARE DEVELOPER [address] [place] [address] [facility] [address] [place] [address] Referral ID Status Reason Start Date Expiration Date Visits Requested Visits Authorized [id number] Pending Review Auto-Generat ed Referral 08/08/2024 10/14/2024 1 1 Specialty Diagnoses / Procedures Referred By Contac t Referred To Contact Cardiology Diagnoses Palpitations Lightheadedness Procedures CONSULT TO CARDIOLOGY OFFICE/OUTPATIENT [facility] 60 MINUTES Benigno Laguerre, DO [address] [facility] [address] [place] [address] Referral ID Status Reason Start Date Expiration Date Visits Requested Visits Authorized [id number] Pending Review PCP Requested Referral 07/02/2024 07/02/2025 1 1 Specialty Diagnoses / Procedures Referred By Contac t Referred [facility] Diagnoses Mild persistent asthma without complication Procedures SPIROMETRY - BASELINE AND POST DILATOR BRNCDILAT RSPSE SPMTRY PRE&POST-BRNCDILAT ADMBenigno Oconnor, DO 1 [facility] [address] [place] [address] Respiratory [facility] [address] [place] [address] Referral ID Status Reason Start Date Expiration Date Visits Requested Visits Authorized [id number] New Request Auto-Generat ed Referral 07/02/2024 08/01/2025 1 1 Chief Complaint and Reason for Visit Chief Complaint SHORTNESS OF BREATH Chief Complaint Admit Date pelvic pain March 13, 2025 9: 24am Additional Source Comments INFORMATION SOURCE (unrecogn ized section and content) DATE CREATED AUTHOR 12/23/[address] [facility] [place] [facility] DATE CREATED AUTHOR AUTHOR'S ORGANIZ ATION 01/12/2024 [facility] DATE CREATED AUTHOR AUTHOR'S ORGANIZ ATION 11/25/2024 [facility] DATE CREATED AUTHOR AUTHOR'S ORGANIZ ATION 03/29/2025 [facility] DATE CREATED AUTHOR AUTHOR'S ORGANIZ ATION 03/30/2025 [facility] Source Comments (unrecognize d section and content) In the event this informatio n is protected by the Federal Confidentiality of Alcohol and Drug Abuse Patient Records regulations: The Federal rules restrict any use of the information to criminally investigate or prosecute any alcohol or drug abuse patient.[facility] the event this information is protected by the Federal Confidentiality of Alcohol and Drug Abuse Patient Records regulations: The Federal rules restrict any use of the information to criminally investigate or prosecute any alcohol or drug abuse patient.[facility] HospitalIn the event this information is protected by the Federal Confidentiality of Alcohol and Drug Abuse Patient Records regulations: The Federal rules restrict any use of the information to criminally investigate or prosecute any alcohol or drug abuse patient.[facility] HospitalIn the event this information is protected by the Federal Confidentiality of Alcohol and Drug Abuse Patient Records regulations: The Federal rules restrict any use of the information to criminally investigate or prosecute any alcohol or drug abuse patient.[facility] HospitalIn the event this information is protected by the Federal Confidentiality of Alcohol and Drug Abuse Patient Records regulations: The Federal rules restrict any use of the information to criminally investigate or prosecute any alcohol or drug abuse patient.[facility] HospitalIn the event this information is protected by the Federal Confidentiality of Alcohol and Drug Abuse Patient Records regulations: The Federal rules restrict any use of the information to criminally investigate or prosecute any alcohol or drug abuse patient.[facility] HospitalIn the event this information is protected by the Federal Confidentiality of Alcohol and Drug Abuse Patient Records regulations: The Federal rules restrict any use of the information to criminally investigate or prosecute any alcohol or drug abuse patient.[facility] HospitalIn the event this information is protected by the Federal Confidentiality of Alcohol and Drug Abuse Patient Records regulations: The Federal rules restrict any use of the information to criminally investigate or prosecute any alcohol or drug abuse patient.[facility] HospitalIn the event this information is protected by the Federal Confidentiality of Alcohol and Drug Abuse Patient Records regulations: The Federal rules restrict any use of the information to criminally investigate or prosecute any alcohol or drug abuse patient.[facility] HospitalIn the event this information is protected by the Federal Confidentiality of Alcohol and Drug Abuse Patient Records regulations: The Federal rules restrict any use of the information to criminally investigate or prosecute any alcohol or drug abuse patient.[facility] HospitalIn the event this information is protected by the Federal Confidentiality of Alcohol and Drug Abuse Patient Records regulations: The Federal rules restrict any use of the information to criminally investigate or prosecute any alcohol or drug abuse patient.[facility] HospitalIn the event this information is protected by the Federal Confidentiality of Alcohol and Drug Abuse Patient Records regulations: The Federal rules restrict any use of the information to criminally investigate or prosecute any alcohol or drug abuse patient.[facility] HospitalIn the event this information is protected by the Federal Confidentiality of Alcohol and Drug Abuse Patient Records regulations: The Federal rules restrict any use of the information to criminally investigate or prosecute any alcohol or drug abuse patient.[facility] HospitalIn the event this information is protected by the Federal Confidentiality of Alcohol and Drug Abuse Patient Records regulations: The Federal rules restrict any use of the information to criminally investigate or prosecute any alcohol or drug abuse patient.[facility] HospitalIn the event this information is protected by the Federal Confidentiality of Alcohol and Drug Abuse Patient Records regulations: The Federal rules restrict any use of the information to criminally investigate or prosecute any alcohol or drug abuse patient.[facility] HospitalIn the event this information is protected by the Federal Confidentiality of Alcohol and Drug Abuse Patient Records regulations: The Federal rules restrict any use of the information to criminally investigate or prosecute any alcohol or drug abuse patient.[facility] HospitalIn the event this information is protected by the Federal Confidentiality of Alcohol and Drug Abuse Patient Records regulations: The Federal rules restrict any use of the information to criminally investigate or prosecute any alcohol or drug abuse patient.[facility] HospitalIn the event this information is protected by the Federal Confidentiality of Alcohol and Drug Abuse Patient Records regulations: The Federal rules restrict any use of the information to criminally investigate or prosecute any alcohol or drug abuse patient.[facility] HospitalIn the event this information is protected by the Federal Confidentiality of Alcohol and Drug Abuse Patient Records regulations: The Federal rules restrict any use of the information to criminally investigate or prosecute any alcohol or drug abuse patient.[facility] HospitalIn the event this information is protected by the Federal Confidentiality of Alcohol and Drug Abuse Patient Records regulations: The Federal rules restrict any use of the information to criminally investigate or prosecute any alcohol or drug abuse patient.[facility] HospitalIn the event this information is protected by the Federal Confidentiality of Alcohol and Drug Abuse Patient Records regulations: The Federal rules restrict any use of the information to criminally investigate or prosecute any alcohol or drug abuse patient.[facility] HospitalIn the event this information is protected by the Federal Confidentiality of Alcohol and Drug Abuse Patient Records regulations: The Federal rules restrict any use of the information to criminally investigate or prosecute any alcohol or drug abuse patient.[facility] HospitalIn the event this information is protected by the Federal Confidentiality of Alcohol and Drug Abuse Patient Records regulations: The Federal rules restrict any use of the information to criminally investigate or prosecute any alcohol or drug abuse patient.[facility] HospitalIn the event this information is protected by the Federal Confidentiality of Alcohol and Drug Abuse Patient Records regulations: The Federal rules restrict any use of the information to criminally investigate or prosecute any alcohol or drug abuse patient.[facility] HospitalIn the event this information is protected by the Federal Confidentiality of Alcohol and Drug Abuse Patient Records regulations: The Federal rules restrict any use of the information to criminally investigate or prosecute any alcohol or drug abuse patient.[facility] HospitalIn the event this information is protected by the Federal Confidentiality of Alcohol and Drug Abuse Patient Records regulations: The Federal rules restrict any use of the information to criminally investigate or prosecute any alcohol or drug abuse patient.[facility] HospitalIn the event this information is protected by the Federal Confidentiality of Alcohol and Drug Abuse Patient Records regulations: The Federal rules restrict any use of the information to criminally investigate or prosecute any alcohol or drug abuse patient.[facility] HospitalIn the event this information is protected by the Federal Confidentiality of Alcohol and Drug Abuse Patient Records regulations: The Federal rules restrict any use of the information to criminally investigate or prosecute any alcohol or drug abuse patient.[facility] HospitalIn the event this information is protected by the Federal Confidentiality of Alcohol and Drug Abuse Patient Records regulations: The Federal rules restrict any use of the information to criminally investigate or prosecute any alcohol or drug abuse patient.[facility] HospitalIn the event this information is protected by the Federal Confidentiality of Alcohol and Drug Abuse Patient Records regulations: The Federal rules restrict any use of the information to criminally investigate or prosecute any alcohol or drug abuse patient.[facility] HospitalIn the event this information is protected by the Federal Confidentiality of Alcohol and Drug Abuse Patient Records regulations: The Federal rules restrict any use of the information to criminally investigate or prosecute any alcohol or drug abuse patient.[facility] HospitalIn the event this information is protected by the Federal Confidentiality of Alcohol and Drug Abuse Patient Records regulations: The Federal rules restrict any use of the information to criminally investigate or prosecute any alcohol or drug abuse patient.[facility] HospitalIn the event this information is protected by the Federal Confidentiality of Alcohol and Drug Abuse Patient Records regulations: The Federal rules restrict any use of the information to criminally investigate or prosecute any alcohol or drug abuse patient.[facility] HospitalIn the event this information is protected by the Federal Confidentiality of Alcohol and Drug Abuse Patient Records regulations: The Federal rules restrict any use of the information to criminally investigate or prosecute any alcohol or drug abuse patient.[facility] HospitalIn the event this information is protected by the Federal Confidentiality of Alcohol and Drug Abuse Patient Records regulations: The Federal rules restrict any use of the information to criminally investigate or prosecute any alcohol or drug abuse patient.[facility] HospitalIn the event this information is protected by the Federal Confidentiality of Alcohol and Drug Abuse Patient Records regulations: The Federal rules restrict any use of the information to criminally investigate or prosecute any alcohol or drug abuse patient.[facility] HospitalIn the event this information is protected by the Federal Confidentiality of Alcohol and Drug Abuse Patient Records regulations: The Federal rules restrict any use of the information to criminally investigate or prosecute any alcohol or drug abuse patient.[facility] HospitalIn the event this information is protected by the Federal Confidentiality of Alcohol and Drug Abuse Patient Records regulations: The Federal rules restrict any use of the information to criminally investigate or prosecute any alcohol or drug abuse patient.[facility] HospitalIn the event this information is protected by the Federal Confidentiality of Alcohol and Drug Abuse Patient Records regulations: The Federal rules restrict any use of the information to criminally investigate or prosecute any alcohol or drug abuse patient.[facility] Reason for Visit (unrecogniz ed section and content) Reason Comments Radiology CT Specialty Diagnoses / Procedures Referred By Contac t Referred To Contact CT IMAGING Diagnoses Recurrent UTI (urinary tract infection) Procedures CT FLANK WO IVCON CT ABD & PELVIS W/O CONTRAST Dilip Loving PA-C [address] [place] [address] Ct Imaging Referral ID Status Reason Start Date Expiration Date V isits Requested Visits Authorized [id number] Closed Auto-Generate d Referral 11/05/2021 12/20/2021 1 [...] MDM 60 MINUTES Ila Canales MD [address] [place] [address] Referral ID Status Reason Start Date Expiration Date V isits Requested Visits Authorized [id number] Closed PCP Requested Referral 08/22/2023 08/21/2024 1 1 Reason Onset Date Comments Weight Management Weight Management 12/21/2023 Reason Comments Insurance Authorization Reason Comments Reminder Call Reason Comments PSG Check In Reason Comments Received Outside Medical Records [facility] 02/09 Reason Comments Establish Care Specialty Diagnoses / Procedures Referred By Renzo t Referred To Contact INTERNAL MEDICINE Diagnoses PHYSICAL PT IS IN NETWORK IN [employer] Procedures PHYSICAL PT IS IN NETWORK IN [facility] [address] [place] [address] Referral ID Status Reason Start Date Expiration Date Visits Requested Visits Authorized [id number] Pending Review OON/Self Pay Override 06/28/2024 10/06/2025 1 1 Reason Comments Referral Information Cardiology Reason Comments Insurance Authorization PA for albuterol inhaler Reason Onset Date Comments Refill Request 08/23/2024 Reason Comments Returning Patient's Call Reason Comments Administrative Support Technician - Other [employer] [facility] - updated instructions Reason Onset Date Comments Refill Request 09/23/2024 Wellbutrin. Adva ir Reason Comments Appointment 6 Month Follow up Reason Onset Date Comments Refill Request 01/24/2025 Albuterol inhale r Care Teams (unrecognized sec tion and content) Structural Mill Supervisor Relationship Specialty Start Date End Date Ila Canales MD [address] [place], [place] [phone] PCP - General Family Practice 08/27/14 Structural Mill Supervisor Relationship Specialty Start Date End Date Ila Canales MD [address] [facility] [place] [address] PCP - General Family Practice 08/27/14 Structural Mill Supervisor Relationship Specialty Start Date End Date Ila Canales MD [address] [facility] [place] [address] PCP - General Family Medicine 08/27/14 Structural Mill Supervisor Relationship Specialty Start Date End Date Ila Canales MD [address] [facility] [place] [address] PCP - General Family Medicine 08/27/14 Structural Mill Supervisor Relationship Specialty Start Date End Date Ila Canales MD [address] [facility] [place] [address] PCP - General Family Medicine 08/27/14 Structural Mill Supervisor Relationship Specialty Start Date End Date Ila Canales MD [address] [facility] [place] [address] PCP - General Family Medicine 08/27/14 Structural Mill Supervisor Relationship Specialty Start Date End Date Ila Canales MD [address] [facility] [place] [address] PCP - General Family Medicine 08/27/14 Structural Mill Supervisor Relationship Specialty Start Date End Date Ila Canales MD [address] [facility] [place] [address] PCP - General Family Medicine 08/27/14 Structural Mill Supervisor Relationship Specialty Start Date End Date Ila Canales MD [address] [facility] [place] [address] PCP - General Family Medicine 08/27/14 Structural Mill Supervisor Relationship Specialty Start Date End Date Ila Canales MD [address] [facility] [place] [address] PCP - General Family Medicine 08/27/14 Structural Mill Supervisor Relationship Specialty Start Date End Date Ila Canales MD [address] [facility] [place] [address] PCP - General Family Medicine 08/27/14 Structural Mill Supervisor Relationship Specialty Start Date End Date Ila Canales MD [address] [facility] [place], [place] [address] PCP - General Family Medicine 08/27/14 Team Status: Active Member Role Status Dates Dr. Rj Canales MD Family Provider Active Dr. Rj Canales MD Primary Care Provider Active Team Status: Inactive Member Role Status Dates Dr. Rj Canales MD Primary Care Provider Active Dr. Anju Bermudez MD Referring Provider, Emergency Provider Active Structural Mill Supervisor Relationship Specialty Start Date End Date Ila Canales MD [address] [facility] [place] [address] PCP - General Family Medicine 08/27/14 Structural Mill Supervisor Relationship Specialty Start Date End Date Ila Canales MD [address] [facility] [place] [address] PCP - General Family Medicine 08/27/14 Structural Mill Supervisor Relationship Specialty Start Date End Date Ila Canales MD [address] [facility] [place], [place] [address] PCP - General Family Medicine 08/27/14 Structural Mill Supervisor Relationship Specialty Start Date End Date Ila Canales MD [address] [facility] [place], [place] [address] PCP - General Family Medicine 08/27/14 Structural Mill Supervisor Relationship Specialty Start Date End Date Ila Canales MD [address] [facility] [place] [address] PCP - General Family Medicine 08/27/14 Structural Mill Supervisor Relationship Specialty Start Date End Date Ila Canales MD [address] [facility] [place] [address] PCP - General Family Medicine 08/27/14 Structural Mill Supervisor Relationship Specialty Start Date End Date Ila Canales MD [address] [facility] [place] [address] PCP - General Family Medicine 08/27/14 Structural Mill Supervisor Relationship Specialty Start Date End Date Ila Canales MD [address] [facility] [place] [address] PCP - General Family Medicine 08/27/14 Structural Mill Supervisor Relationship Specialty Start Date End Date Ila Canales MD [address] [facility] [place] [address] PCP - General Family Medicine 08/27/14 Structural Mill Supervisor Relationship Specialty Start Date End Date Ila Canales MD [address] [facility] [place] [address] PCP - General Family Medicine 08/27/14 Structural Mill Supervisor Relationship Specialty Start Date End Date Ila Canales MD [address] [facility] [place] [address] PCP - General Family Medicine 08/27/14 Structural Mill Supervisor Relationship Specialty Start Date End Date Ila Canales MD [address] [place] [address] PCP - General Family Medicine 08/27/14 Structural Mill Supervisor Relationship Specialty Start Date End Date Ila Canales MD [address] [place] [address] PCP - General Family Medicine 08/27/14 Structural Mill Supervisor Relationship Specialty Start Date End Date Ila Canales MD [address] [place] [address] PCP - General Family Medicine 08/27/14 Structural Mill Supervisor Relationship Specialty Start Date End Date Benigno Laguerre DO [address] [place], [place] [phone] PCP - General Internal Medicine 07/02/24 Ginny Eaton, LALA.MAINFRAME SOFTWARE DEVELOPER [address] [place], [place] [address] Sales And Operations Trainee Internal Medicine 05/12/24 Trini Blackburn DO [address] [place] [address] PCP Resident 07/02/24 Structural Mill Supervisor Relationship Specialty Start Date End Date Benigno Laguerre DO [address] [place] [address] PCP - General Internal Medicine 07/02/24 Ginny Eaton APRN.MAINFRAME SOFTWARE DEVELOPER [address] [place] [address] Sales And Operations Trainee Internal Medicine 05/12/24 Trini Blackburn DO [address] [place], [place] [phone] PCP Resident 07/02/24 Structural Mill Supervisor Relationship Specialty Start Date End Date Carlotta Benigno [address] [place], [place] [phone] PCP - General Internal Medicine 07/02/24 Ginny Eaton, LALA.MAINFRAME SOFTWARE DEVELOPER [address] [place] [address] Sales And Operations Trainee Internal Medicine 05/12/24 Trini Blackburn DO [address] [place], [place] [id number] PCP Resident 07/02/24 Structural Mill Supervisor Relationship Specialty Start Date End Date Carlotta BenignoDO [address] [place], [place] [phone] PCP - General Internal Medicine 07/02/24 Ginny Eaton, POCKET GRINDER OPERATOR.MAINFRAME SOFTWARE DEVELOPER [address] [facility] [facility] [place], [place] [address] Sales And Operations Trainee Internal Medicine 05/12/24 Trini Blackburn DO [address] [place] [address] PCP Resident 07/02/24 Structural Mill Supervisor Relationship Specialty Start Date End Date Carlotta BenignoDO [address] [place], [place] [phone] PCP - General Internal Medicine 07/02/24 Ginny Eaton APRN.MAINFRAME SOFTWARE DEVELOPER [address] [place] [address] Sales And Operations Trainee Internal Medicine 05/12/24 Trini Blackburn DO [address] [place], [place] [phone] PCP Resident 07/02/24 Structural Mill Supervisor Relationship Specialty Start Date End Date Benigno LaguerreDO [address] [facility] 5[address] Floor [place], [place] [phone] PCP - General Internal Medicine 07/02/24 Ginny Eaton APRN.CNP [address] [place] [address] Sales And Operations Trainee Internal Medicine 05/12/24 Trini Blackburn DO [address] [place], [place] [phone] PCP Resident 07/02/24 Team Status: Active Member [...] BE BASED ON THE PRIMARY CLINICAL RECORDS. [employer] provides no warranty or guarantee of the accuracy or completeness of information in this document.
[2025-03-31 21:18] VITALS: BMI 29.7
[2025-03-31 21:23] VITALS: BP 120/86; PULSE 77; RESP 18; TEMP 36.6; O2SAT 97
[2025-03-31] MEDS: Lactated Ringers 1,000 ML 125 ML IV (21:33)
[2025-04-01 05:00] VITALS: BP 108/81; PULSE 61; RESP 18; TEMP 36.6; O2SAT 99
[2025-04-01] MEDS: Lactated Ringers 1,000 ML 125 ML IV (05:52)
[2025-04-01 08:02] VITALS: O2SAT 98
[2025-04-01 09:29] VITALS: BP 119/84; PULSE 78; RESP 18; TEMP 36.7; O2SAT 99
--- NOTE | 2025-04-01 12:40 | PCM.HP.STD ---
HPI - General General Date of Admission: 03/31/25 Chief Complaint: Abdominal pain HPI Narrative ABDOUL FAITH, is a 44 F who had a ureteroscopic laser lithotripsy performed with stent insertion about 10 days ago. Her ureteral stent was removed in the office yesterday. She has been not feeling well with the stent in place. She wanted the stent removed and this was done without incident. Her urine was cultured and she was given a prescription for Cipro. Not long after, she developed severe left lower quadrant abdominal pain that doubled her over. She presented to the emergency room for further evaluation. A repeat CT scan revealed left hydronephrosis with no evidence of retained stone. She was admitted for pain control, hydration and antibiotics. Overnight she has continued to need intravenous pain medication administration but she is feeling better this morning. There is no flank pain, hematuria, dysuria. She is basically having abdominal pain and fatigue. [facility]LY [facility] Medical History Wears glasses Gastric reflux Cardiology follow-up encounter Chest pain Cardiac murmur Dyspnea Chest discomfort Fatigue Kidney stones Obesity (BMI 30.0-34.9) Depression Lightheadedness Palpitations Environmental allergies Asthma Migraine Anxiety Home Medications Medication Instructions Recorded Last Taken Type albuterol sulfate 90 mcg/actuation 1 - 2 puff inhalation Q6H PRN PRN 06/17/16 03/31/25 History aerosol inhaler (Ventolin HFA) Sob &/Or Wheezing ondansetron 4 mg disintegrating 4 mg PO Q8H PRN nausea and 03/27/25 03/31/25 Rx tablet vomiting #10 tabs oxycodone-acetaminophen 5 mg-325 1 tab PO Q8H PRN pain 3 days #10 03/27/25 03/31/25 Rx mg tablet tabs phenazopyridine 200 mg tablet 200 mg PO TID PRN pain #30 tabs 03/27/25 03/31/25 Rx sulfamethoxazole 800 1 tab PO BID INF 3 days #6 TABLETS 03/27/25 03/30/25 Rx mg-trimethoprim 160 mg tablet acetaminophen 500 mg capsule 1,000 mg PO Q6H PRN pain 03/31/25 03/30/25 History ciprofloxacin HCl 500 mg tablet 500 mg PO BID INF. 3 days #6 tabs 03/31/25 03/31/25 Rx ibuprofen 200 mg tablet (Advil) 400 mg PO Q4H PRN pain 03/31/25 03/30/25 History oxycodone-acetaminophen 5 mg-325 1 tab PO Q8H PRN pain 3 days #10 03/31/25 Unknown Rx mg tablet (Percocet) tabs Allergy/AdvReac Type Severity Reaction Status Date / Time clavulanic acid (From AdvReac Mild Abd Verified 03/31/25 15:19 Augmentin) cramps/diarrhea Family History Father Asthma Obesity Grandfather COPD (chronic obstructive pulmonary disease) Obesity Son Asthma Mother Obesity Surgical History H/O uterine ablation Hx of oral surgery Social History household members: none Smoking Status: Current every day smoker tobacco type: e-cigarettes Electronic Cigarette Use: with nicotine alcohol intake: current alcohol intake frequency: holidays/special occasions only substance use type: does not use ROS Constitutional Constitutional: Reports fatigue; Denies anorexia, chills or fever(s) Eyes Eyes: Reports systems reviewed and no addt'l complaints, except as documented ENT HEENT: Reports systems reviewed and no addt'l complaints, except as documented Cardiovascular Cardiovascular: Denies chest pain or dyspnea Respiratory/Chest Respiratory/Chest: Denies cough or dyspnea Gastrointestinal Gastrointestinal: Reports abdominal pain and nausea; Denies constipation, diarrhea or vomiting Genitourinary Genitourinary: Reports systems reviewed and no addt'l complaints, except as documented Musculoskeletal Musculoskeletal: Reports back pain; Denies abnormal gait Integumentary Integumentary: Reports systems reviewed and no addt'l complaints, except as documented Neurologic Neurologic: Reports systems reviewed and no addt'l complaints, except as documented Psychiatric Psychiatric: Reports systems reviewed and no addt'l complaints, except as documented Endocrine Endocrinology: Reports systems reviewed and no addt'l complaints, except as documented Hematologic/Lymphatic Hematologic/Lymphatic: Reports systems reviewed and no addt'l complaints, except as documented Allergic/Immunologic Allergic/Immunologic: Reports systems reviewed and no addt'l complaints, except as documented Vital Signs Vital Signs Vital Signs: 03/31/25 15:19 03/31/25 15:21 03/31/25 17:19 Temperature 98.9 F 98.9 F Temperature Source Oral Oral Pulse Rate 107 H 107 H 72 Pulse Strength Respiratory Rate 16 16 16 Respiratory Effort Respiratory Depth Respiratory Pattern Blood Pressure 141/108 H 141/108 H 138/84 H Blood Pressure Mean 119 119 102 Blood Pressure Source Blood Pressure Position Blood Pressure Location Pulse Ox 100 100 99 Oxygen Delivery Method Room Air Room Air Room Air 03/31/25 19:00 03/31/25 19:26 03/31/25 21:20 Temperature 98.9 F Temperature Source Pulse Rate 67 67 Pulse Strength Respiratory Rate 16 Respiratory Effort Normal Non-Labored Respiratory Depth Normal Respiratory Pattern Normal Blood Pressure 113/84 H 113/84 H Blood Pressure Mean 93 93 Blood Pressure Source Blood Pressure Position Blood Pressure Location Pulse Ox 99 99 Oxygen Delivery Method Room Air Room Air 03/31/25 21:20 03/31/25 21:23 04/01/25 05:00 Temperature 97.9 F 97.9 F Temperature Source Oral Oral Pulse Rate 77 61 Pulse Strength Normal (2+) Respiratory Rate 18 18 Respiratory Effort Respiratory Depth Respiratory Pattern Blood Pressure 120/86 H 108/81 H Blood Pressure Mean 97 90 Blood Pressure Source Monitor Monitor Blood Pressure Position Sitting Sitting Blood Pressure Location Left Arm Left Arm Pulse Ox 97 99 Oxygen Delivery Method Room Air Room Air 04/01/25 05:00 04/01/25 08:02 04/01/25 09:29 Temperature 98.0 F Temperature Source Oral Pulse Rate 78 Pulse Strength Respiratory Rate 18 Respiratory Effort Normal Non-Labored Respiratory Depth Normal Respiratory Pattern Normal Blood Pressure 119/84 H Blood Pressure Mean 95 Blood Pressure Source Monitor Blood Pressure Position Sitting Blood Pressure Location Left Arm Pulse Ox 98 99 Oxygen Delivery Method Room Air Room Air Room Air 04/01/25 09:33 Temperature Temperature Source Pulse Rate Pulse Strength Respiratory Rate Respiratory Effort Normal Non-Labored Respiratory Depth Respiratory Pattern Blood Pressure Blood Pressure Mean Blood Pressure Source Blood Pressure Position Blood Pressure Location Pulse Ox Oxygen Delivery Method Room Air Weight Weight: 178 lb 9.191 oz Body Mass Index (BMI) 29.7 Physical Exam Const oriented x3 and no apparent distress General Appearance: Negative for ill appearing Cardio regular rate GI soft to palpation and non-tender Inspection: Negative for abdominal distention Bladder / Kidney Exam: No CVA tenderness Extremity normal to inspection Results Medical Records Data Attestation: I reviewed the patient's medical records Lab / Micro Data Attestation: I reviewed the patient's lab results. Lab results narrative: Urine culture from the office is negative 03/31/25 16:05 03/31/25 16:05 Labs: Laboratory Results - last 24 hr 03/31/25 16:05: WBC 10.6, RBC 4.51, Hgb 12.9, Hct 39.2, MCV 86.9, MCH 28.6, MCHC 32.9, RDW Std Deviation 38.1, RDW Coeff of Wilfredo 11.9, Plt Count 304, MPV 9.4, Immature Gran % (Auto) 0.400, Neut % (Auto) 68.2, Lymph % (Auto) 16.6 L, Cotton % (Auto) 7.1, Eos % (Auto) 7.2 H, Baso % (Auto) 0.5, Absolute Neuts (auto) 7.3, Absolute Lymphs (auto) 1.77, Nucleated RBC % 0, Sodium 138, Potassium 4.5, Chloride 105, Carbon Dioxide 21.7, Anion Gap 12, BUN 20 H, Creatinine 1.02, Estim Creat Clear Calc 73.90, Est GFR (MDRD) Non-Af 70, BUN/Creatinine Ratio 19.5, Glucose 103 H, Calcium 9.2, Total Bilirubin 0.28, AST 17, ALT 9, Alkaline Phosphatase 57, Total Protein 6.9, Albumin 4.2, Globulin 2.7, Albumin/Globulin Ratio 1.5, Serum , Qual NEGATIVE 03/31/25 17:32: Urine Color Yellow, Urine Clarity Cloudy, Urine pH 6.0, Ur Specific [place] 1.015, Urine Protein 100 H, Urine Glucose (UA) Normal, Urine Ketones Negative, Urine Occult Blood 250 H, Urine Nitrite Positive H, Urine Bilirubin 3 H, Urine Urobilinogen 4 H, Ur Leukocyte Esterase 500 H, Urine RBC 50-100 SEEN, Urine WBC 50-100 SEEN, Ur Squamous Epith Cells 5-10 SEEN, Urine Bacteria 2+, Urine Mucus 0 SEEN Imaging Radiology Impression Abdomen/Pelvis CT 03/31/25 16:35 IMPRESSION: Persistent mild left hydroureteronephrosis. No obstructing stone. Unchanged small subcentimeter nonobstructive stone in the right kidney. Reading Location: [id number] Assessment & Plan Assessment/Plan (1) UTI (urinary tract infection): (2) Flank pain: (3) Hydronephrosis: PLAN: Plan Fluid hydration Complete antibiotic course of Cipro as prescribed Pain control Plan for discharge home later today. Charges/Coding Visit Charges Office Visits / Consults: 98062 OV L4 Est 30min
--- NOTE | 2025-04-01 12:48 | DCINST_ITS ---
Discharge Instructions Diet Discharge Diet: No restrictions Activity Discharge Activity: Return to Normal Activity Dressing / Incision Call your doctor if you observe: Fever of 101 or Higher, Inability to urinate and Inability to have a bowel movement Follow Up Care Please Follow Up With: Edilma Ritter MD Test Results: Test results from this visit will be discussed in further detail at your follow- up appointment, if applicable. Discharge Plan Admission Admit Date/Time: 03/31/25 20:34 Attending Provider: Edilma Ritter Primary Care Provider: Rj Alejandro Instructions Patient Instructions: ED Kidney Stone with Pain, ED UTIs Women Additional Instructions / Restrictions: Take the Percocet every 6-8 hours as needed for pain control. Take the ciprofloxacin, antibiotic as prescribed. If your pain is uncontrolled at home with the Percocet or you develop any new or worsening symptoms you need to return to the emergency department immediately. Dr. Ritter's office will call you tomorrow to check on you as well. Discharge Orders/Prescriptions Prescriptions: New oxycodone-acetaminophen [Percocet] 5-325 mg tablet 1 tab PO Q8H PRN (Reason: pain) 3 Days Qty: 10 0RF No Action ciprofloxacin HCl 500 mg tablet 500 mg PO BID 3 Days Qty: 6 0RF albuterol sulfate [Ventolin HFA] 1 INHALER inhaler 1 - 2 puff inhalation Q6H PRN PRN (Reason: Sob &/Or Wheezing) oxycodone-acetaminophen 5-325 mg tablet 1 tab PO Q8H PRN (Reason: pain) 3 Days Qty: 10 0RF ondansetron 4 mg tablet,disintegrating 4 mg PO Q8H PRN (Reason: nausea and vomiting) Qty: 10 0RF phenazopyridine 200 mg tablet 200 mg PO TID PRN (Reason: pain) Qty: 30 3RF sulfamethoxazole-trimethoprim 800-160 mg tablet 1 tab PO BID 3 Days Qty: 6 0RF acetaminophen 500 mg capsule 1,000 mg PO Q6H PRN (Reason: pain) ibuprofen [Advil] 200 mg tablet 400 mg PO Q4H PRN (Reason: pain) Referrals / Follow Up: Edilma Ritter MD [Med Staff - Active Staff, Urology] - As soon as possible Rj Alejandro MD [Primary Care Provider, Family Practice] Disposition Disposition (needs filled in before D/C Order can be placed): Home, Self Care
[2025-04-01 12:54] VITALS: BP 118/87; PULSE 68; RESP 17; TEMP 36.4; O2SAT 98
--- NOTE | 2025-04-01 13:53 | PHA.DC_ITS ---
Pharmacy [facility] Counseling Pharmacy Service has performed discharge medication reconciliation and counseling for this patient. The patient's discharge medication list was reviewed for discrepancies and discrepancies were resolved. The patient was counseled on the following discharge medications and changes in medications for homegoing were reviewed. The Reason for Use, instructions for use, and potential side effects were reviewed for all new medications. The patient's questions regarding all of their medications were answered. 1. Oxycodone/acetaminophen 5/325 mg PO Q8H PRN pain The patient was able to verbally demonstrate an understanding of their discharge medications. Medications at Discharge Home Medications albuterol sulfate 90 mcg/actuation aerosol inhaler (Ventolin HFA) 1 - 2 puff inhalation Q6H PRN PRN Sob &/Or Wheezing 06/17/16 ondansetron 4 mg disintegrating tablet 4 mg PO Q8H PRN nausea and vomiting #10 tabs 03/27/25 oxycodone-acetaminophen 5 mg-325 mg tablet 1 tab PO Q8H PRN pain 3 days #10 tabs 03/27/25 phenazopyridine 200 mg tablet 200 mg PO TID PRN pain #30 tabs 03/27/25 sulfamethoxazole 800 mg-trimethoprim 160 mg tablet 1 tab PO BID INF 3 days #6 TABLETS 03/27/25 acetaminophen 500 mg capsule 1,000 mg PO Q6H PRN pain 03/31/25 ciprofloxacin HCl 500 mg tablet 500 mg PO BID INF. 3 days #6 tabs 03/31/25 ibuprofen 200 mg tablet (Advil) 400 mg PO Q4H PRN pain 03/31/25 oxycodone-acetaminophen 5 mg-325 mg tablet (Percocet) 1 tab PO Q8H PRN pain 3 days #10 tabs 03/31/25
== END 2025-04-01 14:37 | disposition home or self-care (01) ==
LOC: ED 19:10 → MS3 21:05
PROVIDERS: Admitting Provider Urology; Emergency Provider Student in an Organized Health Care Education/Training Program; PCP Family Medicine; Visit Provider Urology
DX: N13.6 Pyonephrosis (principal); R31.9 Hematuria, unspecified; F17.290 Nicotine dependence, other tobacco product, uncomplicated
CPT/HCPCS: 74176; 80053; 81001; 84703; 85025; 96361; 96374; 96375; 96376; 99221; 99283; A4216; G0378; J2405